=== PATIENT | female | born 1965 | race Caucasian/White ===

== ENCOUNTER 2017-11-10 16:45 | Emergency (ER) | payer MEDICARE, SELFPAY ==
[2017-11-10 16:46] VITALS: BP 139/91; PULSE 82; RESP 16; TEMP 37.1; O2SAT 96; BMI 38.4
--- NOTE | 2017-11-10 17:10 | ED.VISSUMM ---
- ER Visit Summary Date of Service: 11/10/17 Chief Complaint: Right thigh pain History of Present Illness: The patient is a 52 F continued chronic right thigh pain for the past 9 months. Out of her Percocet 2 days ago written by her PCP. Does not see pain management. Symptoms started 9 months ago initially PCP thought it was her lupus acting up. She was on Remicade. Symptoms are not improving. Currently off Remicade. Patient is referred to spine Dr. Bah had a CT of her back and hip was told was osteoarthritis. Continue pain daily is controlled with oxycodone. [address] Moyer orthopedist part of [facility], has concerns as a pinched nerve, has a pending MRI of her back on the of this month. No injuries. No loss of bowel or bladder control. Previously been on gabapentin with no relief. States both pain and numbness in the right anterior thigh. Denies any alcohol, tobacco, or illicit drug use. States it can get in with her PCP tomorrow to refill her medications. Pain worse with bending and standing. Physical Examination: General: Alert and oriented ?3, no acute distress HEENT: Normocephalic, atraumatic. Moist mucosa membranes Neck: supple, nontender. Cardiovascular: Regular rate and rhythm, no murmurs Respiratory: Normal breath sounds, symmetric, no distress Abdomen: Soft, nontender, nondistended Extremities: Right lower extremity: Negative logroll. Straight leg test did aggravate pain in the right thigh. No swelling. DP pulse was intact distally. Neuro: no focal neurological deficits. Test Results: [] Emergency Department Course and Treatment: Patient vitals stable, pulses intact distally. Ongoing symptoms for nine months, no injuries. The pending MRI on the of her lumbar spine. She has no cauda equina symptoms. Has appointment with her PCP tomorrow. She be given a dose of oxycodone here, will give 10 tabs to use until she sees her PCP tomorrow. Refills will be continued by her PCP. Treatment Plan: [] Disposition: Discharge Impression: Chronic right lower extremity pain This note was generated with [employer] software. It may contain incorrect words, spelling, and punctuation that were not noted in review of the chart prior to signing ED Disposition - Plan for ED Patient: Disposition: Home or Assisted Living Chief Complaint: Lower Extremity Injury Diagnosis: Chronic pain of right lower extremity Prescriptions: Oxycodone HCl/Acetaminophen [Percocet 5/325] 1 - 2 tablet PO Q6H PRN PRN 2 Days #10 tablet PRN Reason: Pain Referrals: Cirilo Arnold III, MD [Primary Care Provider] - 1 Day Additional Instructions: See your doctor for continued refills. MRI of the back is pending on the .
[2017-11-10] MEDS: oxyCODONE 5 MG Tablet 10 MG PO (17:25)
== END 2017-11-10 17:31 | disposition home or self-care (01) ==
PROVIDERS: Emergency Provider Emergency Medicine; Family Provider Family Medicine; PCP Family Medicine
DX: M79.651 Pain in right thigh (principal); G89.29 Other chronic pain; R20.0 Anesthesia of skin; R20.2 Paresthesia of skin; M32.9 Systemic lupus erythematosus, unspecified; M16.10 Unilateral primary osteoarthritis, unspecified hip; M19.90 Unspecified osteoarthritis, unspecified site; Z90.49 Acquired absence of other specified parts of digestive tract; Z90.710 Acquired absence of both cervix and uterus; Z79.899 Other long term (current) drug therapy
CPT/HCPCS: 99283

== ENCOUNTER 2018-04-27 23:37 | Emergency (ER) | payer MEDICARE, SELFPAY ==
[2018-04-27 23:38] VITALS: BP 113/94; PULSE 94; RESP 18; TEMP 36.8; O2SAT 98; BMI 42.6
--- NOTE | 2018-04-28 00:03 | ED.DCSUM_ITS ---
- ER Visit Summary Date of Service: 04/28/18 Chief Complaint: Pain all over History of Present Illness: The patient is a 52 F with history of lupus, rheumatoid arthritis and osteoarthritis who presents for 3 days of full body pain. Patient states that she has been on prednisone consistently for the last 4 months, and completed tapering off of it 5 days ago. For the last 3 days she has had worsening flare of her joint pain as well as diffuse myalgias. She states these are typical symptoms of a flare of her lupus and rheumatoid arthritis. She denies any fever, chest pain, shortness of breath, cough, abdominal pain, nausea or vomiting, diarrhea, or other complaints. She states there is nothing new about her symptoms that would make her think it is something other than a flare of her chronic autoimmune disorders. Patient takes Percocet at home but states she has been unable to control her pain. She also takes Ambien to help her sleep. Patient plans to follow-up with her primary care doctor tomorrow, but is in great discomfort tonight. Physical Examination: Vital signs: afebrile, hemodynamically stable, no hypoxia on room air General: well nourished, well developed, in no distress Skin: warm, dry, no rash, no pallor HEENT: normocephalic and atraumatic; PERRL, EOMI, moist mucous membranes Cardiovascular: regular rate and rhythm without murmurs, no peripheral edema, 2 + pulses all distal extremities Respiratory: No increased work of breathing, lungs are clear to auscultation bilaterally, no rales, rhonchi or wheezing Abdominal: Abdomen is soft, nontender with normoactive bowel sounds, no guarding or rebound, no masses MSK: Moves all extremities, no deformities, generalized weakness, diffuse tenderness of palpations to the joints Neuro: Awake and alert, oriented ?4. No facial droop, sensation and motor function intact and symmetric Test Results: [] Emergency Department Course and Treatment: Patient presents with an acute flare of diffuse myalgias and joint pain, typical for her lupus and rheumatoid arthritis flares, after being tapered off of prednisone 5 days ago. She was given a dose of 40 mg of prednisone in the emergency department and prescribed an additional prednisone taper until she can follow-up with her primary care doctor to discuss other treatment alternatives. Patient states she was tapered off of prednisone because it was interfering with her sleep, for which she requires Ambien now. However given her generalized discomfort with myalgias and arthralgias, patient will be restarted on prednisone until she can follow- up with her doctor. Patient has Percocet at home that she takes for pain, and she was given 1 subcutaneous dose of morphine in the emergency department to help her get her acute pain exacerbation under control. Patient states she will follow-up tomorrow to make an appointment to see her doctor as soon as possible. Patient was discharged home. Treatment Plan: [] Disposition: [] Impression: Acute exacerbation of lupus and rheumatoid arthritis This note was generated with [employer] dictation software. It may contain incorrect words, spelling, and punctuation that were not noted in review of the chart prior to signing ED Disposition - Plan for ED Patient: Disposition: Home or Assisted Living Chief Complaint: General Illness Instructions: ED Arthritis Rheumatoid Prescriptions: Prednisone 10 mg PO UD #33 tab Referrals: Cirilo Arnold III, MD [Primary Care Provider] - 1 Day Additional Instructions: Take the prednisone prescription as directed. Follow up with Dr. Arnold tomorrow to discuss more long-term management of your arthritis flare. If you have any worsening of your condition or any new concerning symptoms, please return immediately to the emergency department for another evaluation.
[2018-04-28] MEDS: predniSONE 20 MG Tablet 40 MG PO (00:12)
[2018-04-28] MEDS: Morphine 4 MG/ML Syringe 6 MG SC (00:12)
== END 2018-04-28 00:53 | disposition home or self-care (01) ==
PROVIDERS: Emergency Provider Emergency Medicine; Family Provider Family Medicine; PCP Family Medicine
DX: M32.9 Systemic lupus erythematosus, unspecified (principal); M06.9 Rheumatoid arthritis, unspecified; M19.90 Unspecified osteoarthritis, unspecified site; Z79.899 Other long term (current) drug therapy
CPT/HCPCS: 96372; 99282

== ENCOUNTER 2019-01-05 05:06 | Emergency (ER) | payer MEDICARE, SELFPAY ==
[2019-01-05 05:06] VITALS: BP 147/104; PULSE 88; RESP 18; TEMP 36.8; O2SAT 100; BMI 48.4
--- NOTE | 2019-01-05 05:21 | ED.VISSUMM ---
- ER Visit Summary Date of Service: 01/05/19 Chief Complaint: Arthritis pain History of Present Illness: The patient is a 53 F who presents with arthritis pain that became worse yesterday. Patient states the pain is in both hands, both shoulders, and both ankles. Patient states she was preparing for a baby shower yesterday and when the baby shower with over she noticed increasing pain from her arthritis. Patient denies any trauma or injury. Patient denies any paresthesias or weakness. Patient states this feels similar to prior flareups of her rheumatoid arthritis. Physical Examination: Vital signs are stable. Patient is afebrile. Patient is in no acute distress. Musculoskeletal exam reveals tenderness and edema over the MCP joints, bilateral wrist joints, and bilateral shoulder joints in the upper extremities. There is also tenderness over the bilateral ankle joints in the lower extremities. There is no erythema or warmth. There is no bony crepitance or step-off. There is no effusion noted. Range of motion was limited all motions of the MP joints, wrist joints, shoulder joint, and ankle joint secondary to pain. Sensation was intact to light touch in all dermatomes of the upper and lower extremities. Radial pulses are equal bilaterally. Pedal pulses are equal bilaterally. Emergency Department Course and Treatment: Patient was given an injection of morphine here. Patient was given a dose of prednisone here. Patient was given a prescription for prednisone. Patient was instructed to continue her home pain medications as previously prescribed. Patient was instructed to follow-up with her primary care physician in 5 to 7 days. Patient and her family understood and were agreeable with the plan. All questions were answered. Disposition: Discharge home Impression: Rheumatoid arthritis flare This note was generated with [employer] dictation software. It may contain incorrect words, spelling, and punctuation that were not noted in review of the chart prior to signing ED Disposition - Plan for ED Patient: Disposition: Home or Assisted Living Diagnosis: Rheumatoid arthritis flare Instructions: ED Arthritis Rheumatoid Prescriptions: predniSONE tablet 60 mg PO DAILY #15 tab Referrals: Cirilo Arnold III, MD [Primary Care Provider] - 5-7 Days
[2019-01-05] MEDS: Morphine 4 MG/ML Syringe IM (05:29)
[2019-01-05] MEDS: predniSONE 20 MG Tablet 60 MG PO (05:30)
== END 2019-01-05 05:52 | disposition home or self-care (01) ==
PROVIDERS: Emergency Provider Emergency Medicine; Family Provider Family Medicine; PCP Family Medicine
DX: M06.9 Rheumatoid arthritis, unspecified (principal); R11.0 Nausea; M32.9 Systemic lupus erythematosus, unspecified; K75.81 Nonalcoholic steatohepatitis (NASH); G62.9 Polyneuropathy, unspecified; M79.7 Fibromyalgia; Z79.899 Other long term (current) drug therapy
CPT/HCPCS: 96372; 99282

== ENCOUNTER → 2019-01-12 | Outpatient (CLI) | payer MEDICARE, SELFPAY ==
[2019-01-05 05:06] VITALS: BMI 48.4
--- NOTE | 2019-01-12 15:40 | RAD_ITS ---
STUDY: X-RAY - RIGHT KNEE REASON FOR EXAM: Female, 53 years old. Chronic pain. No known injury. TECHNIQUE: 2 view(s) of the knee. COMPARISON: None. FINDINGS: There is demineralization of the visualized distal femur. There is demineralization of the tibia and fibula. Normal proximal tibiofibular articulation. Normal medial femorotibial compartment. Normal lateral femorotibial compartment. Normal patellofemoral articulation. The soft tissue structures are unremarkable. RAD/Knee 1 or 2 Views IMPRESSION: Demineralization of the osseous structures. No acute abnormality is seen. Electronically Signed: Mc Connor, at 10:19 EDT , Service support ,
--- NOTE | 2019-01-12 15:40 | RAD_ITS ---
STUDY: X-RAY - LEFT KNEE REASON FOR EXAM: Female, 53 years old. Chronic pain. No known injury. TECHNIQUE: 2 view(s) of the knee. COMPARISON: None. FINDINGS: Normal visualized distal femur. Normal visualized proximal tibia and fibula. Normal proximal tibiofibular articulation. There is mild degenerative arthrosis of the medial femorotibial compartment. Normal lateral femorotibial compartment. There is mild degenerative arthrosis of the patellofemoral articulation. The soft tissue structures are unremarkable. RAD/Knee 1 or 2 Views IMPRESSION: Degenerative arthrosis. Electronically Signed: Mc Connor, at 10:20 EDT , Service support ,
--- NOTE | 2019-01-12 15:40 | RAD_ITS ---
STUDY: X-RAY - RIGHT FOOT CLINICAL: Female, 53 years old. Chronic pain. No known injury. TECHNIQUE: 3 view(s) of the foot. COMPARISON: None. FINDINGS: There is a plantar calcaneal spur. Normal visualized subtalar, talonavicular, calcaneocuboid, tarsal and tarsometatarsal articulations. There is demineralization of the metatarsi. There is degenerative arthrosis of the metatarsophalangeal joint of the hallux . Normal tibial and fibular sesamoid bones. Normal interphalangeal joint of the great toe. Normal phalanges of the great toe. Normal second through fifth metatarsophalangeal joints. Normal interphalangeal joints and phalanges of the lesser toes. The soft tissue structures are unremarkable. RAD/Foot min 3 Views IMPRESSION: Degenerative changes at the first metatarsophalangeal joint. No acute abnormality is seen. Electronically Signed: Mc Connor, at 10:18 EDT , Service support ,
--- NOTE | 2019-01-12 15:40 | RAD_ITS ---
STUDY: X-RAY - RIGHT SHOULDER REASON FOR EXAM: Female, 53 years old. Chronic pain. No known injury. TECHNIQUE: 4 view(s) of the shoulder. COMPARISON: None. FINDINGS: Normal glenohumeral articulation. Normal acromioclavicular joint. Normal acromion. Normal humeral head and visualized proximal humerus. The soft tissue structures are unremarkable. Normal visualized pulmonary apex. RAD/Shoulder min 2 Views IMPRESSION: Normal x-ray examination of the shoulder. Electronically Signed: Mc Connor, at 10:21 EDT , Service support ,
--- NOTE | 2019-01-12 15:45 | RAD_ITS ---
STUDY: X-RAY - LEFT FOOT CLINICAL: Female, 53 years old. Chronic pain. No known injury. TECHNIQUE: 3 view(s) of the foot. COMPARISON: None. FINDINGS: There is a plantar calcaneal spur. Normal visualized subtalar, talonavicular, calcaneocuboid, tarsal and tarsometatarsal articulations. Normal metatarsi. There is degenerative arthrosis of the metatarsophalangeal joint of the hallux . Findings suggestive of prior bunionectomy. Normal tibial and fibular sesamoid bones. Normal interphalangeal joint of the great toe. Normal phalanges of the great toe. Normal second through fifth metatarsophalangeal joints. Normal interphalangeal joints and phalanges of the lesser toes. The soft tissue structures are unremarkable. RAD/Foot min 3 Views IMPRESSION: Mild degenerative changes at the first metatarsal phalangeal joint. Electronically Signed: Mc Connor, at 10:20 EDT , Service support ,
--- NOTE | 2019-01-12 15:46 | RAD_ITS ---
STUDY: X-RAY - LEFT SHOULDER REASON FOR EXAM: Female, 53 years old. Chronic pain. No known injury. TECHNIQUE: 4 view(s) of the shoulder. COMPARISON: None. FINDINGS: Normal glenohumeral articulation. There is degenerative arthrosis of the acromioclavicular joint without inferior osseous spur formation. Normal acromion. Normal humeral head and visualized proximal humerus. The soft tissue structures are unremarkable. Normal visualized pulmonary apex. RAD/Shoulder min 2 Views IMPRESSION: Mild degree of the degenerative changes of the acromioclavicular joint. Electronically Signed: Mc Connor, at 10:21 EDT , Service support ,
== END | disposition home or self-care (01) ==
LOC: RAD 15:37
PROVIDERS: Family Provider Family Medicine; PCP Family Medicine; Referring Provider Internal Medicine Rheumatology; Visit Provider Internal Medicine Rheumatology
DX: M06.09 Rheumatoid arthritis without rheumatoid factor, multiple sites (principal)
CPT/HCPCS: 73030; 73560; 73564; 73630

== ENCOUNTER 2019-02-04 08:22 | Emergency (ER) | payer MEDICARE, SELFPAY ==
[2019-02-04 08:23] VITALS: BP 136/91; PULSE 87; RESP 17; TEMP 37; O2SAT 94; BMI 37.4
--- NOTE | 2019-02-04 08:47 | ED.DCSUM_ITS ---
History of Present Illness Chief Complaint: Other, Pain/Inj Detail of Chief Complaint: Generalized aches, poor quality of life and unable to care for self Informant: Patient, Family Onset: Month(s) Context: Gradual Onset Timing: Continuous Quality: Unable to care for self and generalized aches Location: Not applicable Current Severity: Mild Maximum Severity: Severe Worsened by: Attempt to get up out of chair and walk Relieved by: Nothing Associated Symptoms: Patient states she has a poor quality of life Narrative: Patient is a 53-year-old woman who has history of hypothyroidism, GERD, osteoarthritis, rheumatoid arthritis, lupus and fibromyalgia. She reports difficulty sleeping and is presently taking Ambien. She is also on antidepressants. She states Dr. Renteria recently decreased her dose of Percocet. She is seen at the [facility]. She denies fever, chills or night sweats. She denies change in weight. She denies ocular, visual or auditory symptoms. She denies cardiac or respiratory symptoms. She denies GI or symptoms. She reports generalized weakness. She has not noticed any swelling or redness of joints. She states for the past 2 weeks her sister has had to lay out her close and food. She states it is an effort to get up out of the chair. She reports is not been able to wash her hair for 2 to 4 weeks. She needs assistance. Prior similar symptoms: Yes Recent Illness/Hospitalization: No Past Medical History - Allergies and Home Meds Allergies/Adverse Reactions: Allergies hydrocodone bitartrate [From Vicodin] Adverse Reaction (Verified 02/04/19 08:23) Other sulfamethoxazole [From Bactrim] Adverse Reaction (Verified 02/04/19 08:23) Vomiting trimethoprim [From Bactrim] Adverse Reaction (Verified 02/04/19 08:23) Vomiting Primary Care Physician: Cirilo Arnold III, MD [Primary Care Provider] - Prior records reviewed: Yes Past Medical History: - - Documented in HPI Surgical History: cholecystectomy, hysterectomy Lives: With Family Smoking Status: Never smoker Alcohol: None Review of Systems General: Reports: Malaise. Denies: Chills, Fever, Subjective, Sweats, Weight loss, - Eyes: Denies: Visual changes - bilaterally, Blurred Vision - bilaterally ENT: Denies: Bilateral ear pain, Rhinorrhea, Sore throat Cardiovascular: Denies: Chest pain, Palpitations Respiratory: Denies: Dyspnea, Cough, Dyspnea on exertion Gastrointestinal: Denies: Abdominal pain, Nausea, Vomiting, Diarrhea, Melena, Hematochezia Genitourinary: Denies: Dysuria, Hematuria, Frequency Musculoskeletal: Reports: Myalgias, Back pain, Extremity Pain. Denies: Arthralgias, Swelling Skin: Denies: Rash, Wounds Neurological: Reports: Weakness Psych: Denies: Depression, Anxiety Endocrine: Denies: Polyuria, Polydipsia Hematologic: Denies: Easy bruising, Easy bleeding Physical Exam Vital Signs/Narrative: Vital Signs Temp Pulse Resp BP Pulse Ox 02/04/19 08:23 98.6 F 87 17 136/91 H 94 Inital Vital Signs reviewed: Yes General: Well nourished, Well developed, No Acute Distress Head: Normocephalic, Atraumatic Eyes: Perrl, EOMI. Negative for: Pale conjunctiva, Scleral icterus, - ENT: Moist mucous membranes, No rhinorrhea Neck: Supple, Nontender, No lymphadenopathy, No JVD Cardiovascular: Regular rate, Regular rhythm, No murmurs, Normal S1, Normal S2 Respiratory: No distress, CTA bilaterally, Chest nontender Abdomen: Soft, Nontender, Nondistended, Normal bowel sounds, No masses Back: Nontender, Normal Inspection Extremities: No edema, - - Patient has deformity of her fingers consistent with rheumatoid arthritis. There is no erythema or warmth of her joints.. Negative for: Nontender Skin: Normal color, No rash, No Trauma. Negative for: Cyanosis, Diaphoresis, Jaundice Neurological: Alert, Oriented x3, Cranial nerves II-XII grossly intact, Normal Strength, Normal Sensation. Negative for: Normal Gait - Patient states she is not able to ambulate Psychological: Depressed, - - She has slow psychomotor skills. Diagnostic/Tx/Re-eval Laboratory Results 02/04/19 02/04/19 09:00 09:00 WBC 3.5 L RBC 5.00 Hgb 13.1 Hct 41.4 MCV 82.8 MCH 26.2 L MCHC 31.6 L RDW 14.5 RDW Differential 43.7 Plt Count 306 MPV 9.9 Immature Gran % (Auto) 0.000 Neut % (Auto) 70.2 H Lymph % (Auto) 28.4 [place] % (Auto) 1.1 Eos % (Auto) 0.0 Baso % (Auto) 0.3 Absolute Neuts (auto) 2.4 Absolute Lymphs (auto) 0.99 Total Counted Not Reportable Sodium 143 Potassium 4.0 Chloride 112 H Carbon Dioxide 21.0 Anion Gap 10 BUN 11 Creatinine 0.76 Estim Creat Clear Calc 67.71 Est GFR (MDRD) Af Amer 102 Est GFR (MDRD) Non-Af 85 BUN/Creatinine Ratio 14.5 Glucose 151 H Calcium 9.0 Total Bilirubin 0.20 AST 22 ALT 33 Alkaline Phosphatase 188 H Total Protein 8.0 Albumin 3.4 Globulin 4.6 H Albumin/Globulin Ratio 0.7 L TSH 0.93 White count is slightly low at 3.5 thousand. Differential is unremarkable. Blood sugar is elevated 188. TSH is normal. Kathryn Reaves from case management is presently interviewing patient. - Medical Decision Making With patient's constellation of symptoms and history of hypothyroidism we will obtain TSH, CMP and CBC to determine if there is a metabolic or infectious cause for her symptoms. Clinically patient is depressed. She denies depression or sadness. Consult was placed to case management. Patient was asked what her expectations of me and this visit. She states she wants to feel better. At 0850 I was informed by patient's nurse she needed minimal assistance to get undressed. She did need assistance getting out of the wheelchair. She was able to walk to the examination bed and able to lift her legs up. When asked to raise her upper extremity for blood draw she states she was unable. This would support my opinion especially if work-up is negative that this represents depression. This also may be secondary to hypothyroidism and reason for TSH. I was informed by patient's nurse that she requested pain medicine. Tylenol was ordered. She declined Tylenol. I was informed that she left. According to patient's home-going meds she is not due for Percocet until noon. Based on recent studies there is no significant benefit treating chronic pain with Tylenol or NSAID versus opiate analgesia. Since patient has multiple medical problems and physiologically is older than 53 reluctant to prescribe NSAID. License nephrology social worker Kathryn asked her informed me that patient score was positive for depression and is a candidate for palliative care. She is open to palliative care. She also expressed that she was concerned that Dr. Cirilo Arnold was weaning her off Percocet. At 1105 patient was seen ambulating from restroom. She had minimal assistance i.e. mother was holding left hand and forearm. It was observed and there is no foot drop or evidence of weakness. ED Disposition - Plan for ED Patient: Disposition: Home or Assisted Living Diagnosis: Depression determined by examination, History of hypothyroidism, Diabetes mellitus due to underlying condition with hyperglycemia, Hypertension Instructions: ED Chronic Pain Management, ED Depression, Depression Affects Your Mind and Body Referrals: Cirilo Arnold III, MD [Primary Care Provider] - Additional Instructions: Kathryn Reaves has placed an order for palliative care evaluation and assistance.
[2019-02-04 09:15] LABS: Absolute Lymphocyte Count 0.99 X10^3/ul (0.83-4.51); Absolute Neutrophil Count 2.4 X10^3/uL (2.0-7.7); Basophil# 0.01 X10^3/uL; Basophil% 0.3 % (0-1); Hematocrit 41.4 % (37-47); Hemoglobin 13.1 g/dl (12.0-15.0); Lymphocyte # 0.99 X10^3/ul (4.0); Lymphocyte % 28.4 % (19-41); Mean Corp Hgb Conc 31.6 g/gl (32-36); Mean Corpuscular Hgb 26.2 pg (27.0-32.0); Mean Corpuscular Volume 82.8 fL (81-99); Mean Platelet Vol. 9.9 fl (6.2-12.0); Monocyte# 0.04 X10^3/uL; Monocyte% 1.1 % (0-10); Neutrophil # 2.44 X10^3/uL (2.7-7.7); Neutrophil % 70.2 % (47-70); Platelet Count 306 K/mm3 (150-450); RBC Distribution Width CV 14.5 % (11.6-14.6); RBC Distribution Width SD 43.7 fl (35.1-43.9); White Blood Count 3.5 K/mm3 (4.4-11.0)
[2019-02-04 09:16] LABS: POSITIVE COUNT NO; POSITIVE DIFFERENTIAL NO; POSITIVE MORPHOLOGY NO
[2019-02-04 09:32] LABS: ALB/GLOB Ratio 0.7 RATIO (0.9-2.4); AST(SGOT) 22 U/L (15-37); Alanine Aminotransfer ALT/SGPT 33 U/L (13-56); Albumin, Serum 3.4 g/dL (3.2-5.0); Alkaline Phosphatase 188 U/L (45-117); Anion Gap 10 (5-15); BUN 11 mg/dL (7-18); BUN/Creat Ratio 14.5 RATIO (10-20); Chloride 112 mmol/L (98-107); Creatinine, Serum 0.76 mg/dL (0.55-1.02); EST Glomerular Filtration Rate 85 mL/min (>60); Est Glom Filt Rate - Afr Amer 102 mL/min (>60); Estimated Creatinine Clearance 67.71 ml/min; Globulin 4.6 g/dL (2.2-4.2); Glucose 151 mg/dL (74-106); Sodium Level 143 mmol/L (136-145); Thyroid Stim Hormone (TSH) 0.93 uIU/mL (0.358-3.74)
[2019-02-04] MEDS: Acetaminophen 325 MG Tablet 650 MG PO (10:21)
[2019-02-04 10:58] VITALS: BP 154/99; PULSE 70; O2SAT 100
--- NOTE | 2019-02-04 11:05 | ED.RN ---
WHILE IN ER, PT WAS ABLE TO MOVE SOME EXTREMITIES AT TIMES, THEN WOULD NOT BE ABLE TO MOVE THEM. SHE WAS ABLE TO USE HER ARMS TO LIFT HERSELF ON THE BED AND SCOOT HERSELF BACK IN BED, BUT STATES SHE WAS NOT ABLE TO LIFT HER ARM TO PUT A BLOOD PRESSURE CUFF ON. PT ASKED FOR PAIN MEDS, TYLENOL ORDERED. WHEN PT INFORMED OF MEDS, PT LAUGHED AND STATED TYLENOL, REALLY. AND LAUGHED AGAIN. PT WAS ABLE TO AMBULATE SELF TO BATHROOM AND BACK TO BED WITHOUT ASSISTANCE FROM STAFF.
--- NOTE | 2019-02-04 14:56 | CASEMGMT ---
Social Work Note Date and Time of Referral: 02/04/2019 0841 Referred By: Dr. Velasquez Date and Time of Intervention: 02/04/2019 0930 - 1100 Reason for Referral: multiple medical problems; inability to care for herself. Informant: medical record and patient herself; patient's mother Noemi Cate present for parts of conversation. Personal Status Living Arrangements: [facility] with sister. Reports there are a few steps into the home. Education: College educated with degree reported to be in social work. Reports ability to read, write, and understand what is read. Employment: on disability related to multiple medical problems. 1300 plus a month. 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 Family Dynamics/Relationships: Reports sister Callie and mother Noemi are main support system. Both try to help MOB when MOB needs more care at home. Support System: mother, sister. Medical History and Functioning: Medical History and Reason for admission: to the ED with complaints of generalized aches, poor quality of life, and not caring for self. ADLs prior to admission: Patient reports for the last 5 years a significant decrease in quality of life and independent functioning such as dressing by herself. Over the last two weeks patient reports acute change in having difficultly in getting out of bed, getting to the toilet, and bathing. DME used: [employer] bed, lift chair, forward wheeled walker Programs/Agencies Involved: Transportation: family assists Otherr: Dr. Arnold for primary care and Dr. Grey at the [facility] Substance Abuse History and Current Pattern of Use: Denies abuse of any substances. Has been prescribed Percocet for may years for chronic pain issue and PCP is in the process of titrating this down with goal to be finished in a month's time. Mental Health History and Current Cognitive Status Diagnoses: Patient denies past or present history of depression or anxiety. Patient admits however that emotional health has likely been impacted by chronic health issues. Current Stressors: Loss of independence. Patient admits that when reflects on how life used to be with ability to work, function independently, and travel it is hard to know that has lost this part of her life. SI or HI: Patient admits to thoughts of suicide 5 years ago when chronic health issues took a turn for the worse and patient lost independent functioning. Patient denies that ever formulated a plan or had intent to take life, but contemplate the idea of suicide. Patient states that suicide goes against patient's beliefs and core values, that wants to go to heaven and does not want to take a chance that she would not go to [facility] because of taking her own life. Treatment History: None reported or identified. Current Cognitive/Mental Status: Alert and oriented to person, place, time and situation. Good recall of past events and clear and logical thought process when discussing concerns. Patient tearful when talking about loss of independence, frustration with health issues/having chronic pain/feeling like no one is listening to patient about what she needs. Patient stating to be in pain, laying still in bed for the most part. Observed patient to be able to shift around in bed as needed to adjust self. PHq9 Depression Screen (how feeling over the last two weeks): Total score: 3 (mild depression symptoms present) 1 . Little interest or pleasure in doing things. -more than half days (score of 2) 2. Feeling down, depressed or hopeless. - several days (score of 1) 3. Trouble falling asleep, staying asleep, or sleeping too much. - not at all (score of 0) 4. Feeling tired or having little energy. - not at all (score of 0) 5. Poor appetite or overeating.- not at all (score of 0) 6. Feeling bad about yourself - or that you?re a failure or have let yourself or your family down.- not at all (score of 0) 7. Trouble concentrating on things, such as reading the newspaper or watching television. - not at all (score of 0) 8. Moving or speaking so slowly that other people could have noticed. Or, the opposite - being so fidgety or restless that you have been moving around a lot more than usual. - not at all (score of 0) 9. Thoughts that you would be better off or of hurting yourself in some way. - not at all (score of 0) Patient?s Identified Concerns: change in reported ability to care for self, frustrated with current pain levels and concern that PCP is decreasing pain meds that patient has been on for years in just a month's time. Patient wants help with cooking, bathing, and dressing. Interventions: Supportive listening and encouragement given. Talked with patient how medical issues can impact one's mental health and encouraged patient to consider options this technical proposal writer provided (list of counselors and [facility] programs). Educated to Medicare assistance programs through [facility], provided income guidelines and medicaid application to look into medicaid to help with Medicare copays. Educated to meals on wheels, provided information, and per patient's stated consent initiated referral. MOW to call patient to discuss cost. Educated to [facility] and disable resource center as an [place] to give patient more ideas on services, half-way needs, and care options. Patient declines referral but took information to look over. Educated to local Palliative medicine program. Palliative Medicine screening tool completed and based on screening tool may benefit from palliative medicine. Patient states consent for a referral. Spoke with physician in the ED who is in agreement with referral. Called [facility], spoke with [place], verbal referral given and then faxed needed referral information for continuity of care to confirmed fax number. Briefly discussed private pay for home health aide and then skilled HHC. Patient not interested in private paying right now and declines referral for skilled HHC. Plan: Home. Mother to transport. Referrals made for MOWs and palliative medicine. Information on mental health and other community resources provided. -RK Espinosa, TECHNOLOGY ADOPTION MANAGER
== END 2019-02-04 11:25 | disposition home or self-care (01) ==
PROVIDERS: Emergency Provider Emergency Medicine; Family Provider Family Medicine; PCP Family Medicine
DX: F32.9 Major depressive disorder, single episode, unspecified (principal); E03.9 Hypothyroidism, unspecified; E11.65 Type 2 diabetes mellitus with hyperglycemia; I10 Essential (primary) hypertension; K21.9 Gastro-esophageal reflux disease without esophagitis; M19.90 Unspecified osteoarthritis, unspecified site; M06.9 Rheumatoid arthritis, unspecified; M79.7 Fibromyalgia; Z79.899 Other long term (current) drug therapy
CPT/HCPCS: 80053; 84443; 85025; 99283; A4216

== ENCOUNTER 2019-10-30 15:05 | Emergency (ER) | payer MEDICARE, SELFPAY ==
[2019-10-30 15:07] VITALS: BP 153/108; PULSE 92; RESP 18; TEMP 36.8; O2SAT 99; BMI 37.8
--- NOTE | 2019-10-30 15:55 | ED.DCSUM_ITS ---
- ER Visit Summary Date of Service: 10/30/19 Chief Complaint: Vomiting History of Present Illness: The patient is a [address] Cirilo Arnold and Dr. Mansfield. She reports that she has been vomiting for the past 10 days. States this does not happen every day. However, she vomited 10 times yesterday and twice today. No blood or emesis. No abdominal pain. No diarrhea. Her last bowel movements yesterday. Typically she goes every other day. She denies any blood in her stools or black tarry stools. No dysuria or frequency. Patient reports that she has an appointment to see Dr. Loya for endoscopy next week. Last endoscopy was years ago. States that she is had similar episodes off and on for the past 3 months but that typically it usually lasts for 2 days. Patient reports that she saw Dr. Cirilo Arnold iii, but she is on methadone and oxycodone and he did not think that continuing her Phenergan or Zofran was a good idea due to these medications. Physical Examination: Vitals: Stable. Afebrile. General: Well-nourished and well-developed. Head: Normocephalic atraumatic. Neck: Supple, no lymphadenopathy. No JVD. Nontender. Cardiovascular: Regular rate and rhythm. No murmurs. Respiratory: No respiratory distress. Clear to auscultation bilaterally. Abdominal: Soft, nontender, nondistended, normal bowel sounds. No guarding, rebound, or peritoneal signs. Back: Nontender. Extremities: Nontender, no edema. Skin: Normal color, no rash. Neurologic: Alert and oriented ?3. Cranial nerves II through XII are intact. Normal strength and sensation. Psych: Normal affect. Test Results: CBC shows an H&H of 11.0 and 36.9. Chem-7 shows a potassium 3.4, chloride 112, BUN of 4. Emergency Department Course and Treatment: I reviewed the interactions between methadone, Zofran, and Phenergan. It appears that this combination does increase the risk of QT prolongation. This does not occur with Reglan. She was given a dose of Reglan here and had an akathetic reaction. She was given Benadryl IV and is resting comfortably now. She has not vomited while here. She was given a liter normal saline. Treatment Plan: Patient will be discharged with symptomatic care. Cannot give Reglan because of the reaction she had here. Cannot give Zofran or Phenergan due to QT prolongation. Instructed to follow-up with Dr. Loya and Dr. Ciirlo Arnold iii as previously scheduled. Return to the emergency department for any worsening symptoms. Disposition: To home in improved and stable condition. Impression: 1. Vomiting. This note was generated with [employer] dictation software. It may contain incorrect words, spelling, and punctuation that were not noted in review of the chart prior to signing ED Disposition - Plan for ED Patient: Instructions: VOMITING (6y-Adult) Referrals: Cirilo Arnold III, MD [Primary Care Provider] - 1-2 Days if not improving
[2019-10-30 16:12] LABS: Absolute Lymphocyte Count 1.35 X10^3/uL (0.83-4.51); Absolute Neutrophil Count 2.6 X10^3/uL (2.0-7.7); Basophil# 0.04 X10^3/uL; Basophil% 0.9 % (0-1); Eosinophil# 0.16 X10^3/uL; Eosinophils% 3.5 % (0-5); Hematocrit 36.9 % (37-47); Lymphocyte # 1.35 X10^3/ul (4.0); Lymphocyte % 29.5 % (19-41); Mean Corp Hgb Conc 29.8 g/dL (32-36); Mean Corpuscular Hgb 25.5 pg (27.0-32.0); Mean Corpuscular Volume 85.6 fL (81-99); Mean Platelet Vol. 10.5 fl (6.2-12.0); Monocyte# 0.42 X10^3/uL; Monocyte% 9.2 % (0-10); NRBC Flagged by Analyzer 0 % (0-5); Neutrophil # 2.59 X10^3/uL (2.7-7.7); Neutrophil % 56.7 % (47-70); Platelet Count 277 K/mm3 (150-450); RBC Distribution Width CV 16.5 % (11.6-14.6); RBC Distribution Width SD 51.8 fl (35.1-43.9); Red Blood Count 4.31 M/mm3 (4.2-5.4); White Blood Count 4.6 K/mm3 (4.4-11.0)
[2019-10-30] MEDS: Metoclopramide 10 MG/2 ML Vial IV (16:17)
[2019-10-30] MEDS: 0.9% Normal Saline 1,000 ML 1000 ML IV (16:17)
[2019-10-30 16:19] LABS: Anion Gap 4 (5-15); BUN 4 mg/dL (7-18); BUN/Creat Ratio 5.5 RATIO (10-20); Calcium,Total 8.6 mg/dL (8.5-10.1); Chloride 112 mmol/L (98-107); Creatinine, Serum 0.72 mg/dL (0.55-1.02); EST Glomerular Filtration Rate 89 mL/min (>60); Est Glom Filt Rate - Afr Amer 108 mL/min (>60); Estimated Creatinine Clearance 70.65 ml/min; Glucose 99 mg/dL (74-106); Potassium 3.4 mmol/L (3.5-5.1); Sodium Level 145 mmol/L (136-145)
[2019-10-30] MEDS: DiphenhydrAMINE 50 MG/ML Syringe IV (16:35)
[2019-10-30 16:54] VITALS: BP 143/81; PULSE 72; RESP 17; O2SAT 95
== END 2019-10-30 16:58 | disposition home or self-care (01) ==
LOC: ED 15:45
PROVIDERS: Emergency Provider Emergency Medicine; PCP Family Medicine
DX: R11.2 Nausea with vomiting, unspecified (principal); R68.83 Chills (without fever); M54.9 Dorsalgia, unspecified; G89.29 Other chronic pain; R51 Headache; M06.9 Rheumatoid arthritis, unspecified; M79.7 Fibromyalgia; M32.9 Systemic lupus erythematosus, unspecified; Z79.899 Other long term (current) drug therapy
CPT/HCPCS: 80048; 85025; 96361; 96374; 96375; 99283

== ENCOUNTER 2019-11-06 11:23 | Day surgery (SDC) | payer MEDICARE, SELFPAY ==
--- NOTE | 2019-11-06 09:23 | HP.PCM_ITS ---
History and Physical Date of Admission: 11/06/19 Hodan Castellanos 1965 REFERRING PHYSICIAN: MD Eliecer CHIEF COMPLAINT: Consult (Consult EGD- n/v x 4 months) HPI: The patient is a 54 year old female presents with nausea with emesis with weight loss. She has noted weight loss of about 45#. She notes minimal left upper quadrant abdominal pain, just recently. Denies constipation or diarrhea. Denies blood in emesis. This has been going on for about 4 months. She is s/p jaylyn en y bariatric surgery in the early . Denies fevers. PAST MEDICAL HISTORY Chronic insomnia 09/09/2017 ? Depression 11/17/2012 ? Elevated liver function tests 05/22/2012 ? Fibromyalgia ? Hyperlipidemia LDL goal < 100 06/26/2010 ? Hypoglycemia after GI (gastrointestinal) surgery 04/30/2014 ? Iron deficiency anemia, unspecified ? 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 Irritable bowel syndrome ? Migraine, unspecified, without mention of intractable migraine without mention of status migrainosus ? Morbid obesity due to excess calories (HCC) 12/15/2015 ? Polyneuropathy in other diseases classified elsewhere (HCC) ? Rheumatoid arthritis(714.0) ? Systemic lupus erythematosus arthritis (HCC) 03/18/2014 ? Unspecified asthma(493.90) ? Unspecified hypothyroidism ? Vitamin B 12 deficiency 11/22/2017 ? Vitamin D deficiency 09/16/2012 PAST SURGICAL HISTORY ? COLONOSCOPY 1999 ? EGD W/O OR W/BRUSH/WASH 1994 EGD ? HERNIA REPAIR HX ? intestinal bypass 1991 roue-in-Y gastric bypass ? KNEE SCOPE,DIAGNOSTIC Arthroscopy, knee ? LAP, SUPRACERVIAL HYSTERECTOMY W/ TUBE&OV, <250G 08/09 endometriosis and ovarian cysts (EDIT 03/2015 abdominal incision) ? PULMONARY FUNCTION TEST ? REMOVAL GALLBLADDER 1992 Cholecystectomy Current Outpatient Medications ? promethazine (PHENERGAN) 25 mg tablet Go-Pack Take 1 tablet by mouth every 6 hours as needed for Nausea/Vomiting for up to 80 doses. ? tiZANidine (ZANAFLEX) 4 mg tablet Take 1 tablet by mouth every 8 hours as needed (muscle spasms). ? levothyroxine (SYNTHROID) 88 mcg tablet Take 1 tablet by mouth once daily. Take on empty stomach. ? cholecalciferol, vitamin D3, (VITAMIN D3) 4,000 unit cap Take 1 capsule by mouth once daily. ? oxyCODONE IR (ROXICODONE) 10 mg tab Take 10 mg by mouth four times daily. ? methadone (DOLOPHINE) 10 mg tablet Take 10 mg by mouth q 12 HR. ? busPIRone (BUSPAR) 10 mg tablet Take 1 tablet by mouth three times daily. ? hydrOXYzine HCl (ATARAX) 25 mg tablet Take 1 tablet by mouth every 8 hours as needed for Anxiety. ? DULoxetine (CYMBALTA) 60 mg capsule Take 1 capsule by mouth once daily. ? dicyclomine (BENTYL) 10 mg capsule Take 1 capsule by mouth before meals and at bedtime. as needed for abdominal cramping ? topiramate (TOPAMAX) 100 mg tablet Take 2 tablets by mouth twice daily. ? zolpidem (AMBIEN) 10 mg tab Take 1 tablet by mouth at bedtime as needed for up to 30 days. ? oxyCODONE-acetaminophen (PERCOCET) 5-325 mg tablet Take 2 tablets by mouth every 8 hours as needed for Pain (max 6 doses/day) for up to 30 days. ? mometasone (ELOCON) 0.1 % cream Apply 1 application to affected area once daily. ? albuterol HFA (PROVENTIL HFA, VENTOLIN HFA) 90 mcg/actuation inhaler Inhale 2 Puffs as instructed every 4 hours as needed for Wheezing/Shortness of Breath. ? folic acid 1 mg tablet Take 1 tablet by mouth once daily. ? Zinc 50 mg tab Take 1 tablet by mouth once each week. ? oxyCODONE-acetaminophen (PERCOCET) 5-325 mg tablet Take 1 tablet by mouth every 4 hours as needed for Pain for up to 7 days. max 6 doses/day Earliest Fill Date: 01/27/19 ? benzonatate (TESSALON PERLES) 100 mg capsule Take 1 capsule by mouth three times daily as needed for Cough. ? metoclopramide HCl (REGLAN) 10 mg tablet Take 1 tablet by mouth twice daily as needed (headache). 30min before meals. ? predniSONE (DELTASONE) 10 mg tablet Take 1 tablet by mouth twice daily. ? lidocaine (LIDODERM) 5 % Apply 1 Patch as directed every 24 hours. Remove old patch prior to placing new patch. Location: right thigh ? hydrocortisone (ANUSOL-HC) 25 mg suppository 1 Suppository by RECTAL route twice daily as needed (hemorrhoids/rectal pain). ? polyethylene glycol 3350 (MIRALAX) 17 gram/dose powder 17 g/ 8 oz liquid by mouth daily ? Simethicone (GAS RELIEF) 125 mg cap Take 1 capsule by mouth three times daily as needed (gas/bloating). ? therapeutic multivitamin (THERA VITAMIN) tablet Take 1 tablet by mouth once daily. ? hydrocortisone 0.5 % cream Apply 1 application to affected area twice daily. ? rizatriptan 5 mg tablet Take 1 tablet by mouth as needed for Migraine Headache (see administration instructions) (every 2 hrs as needed for migraine, maximum 15mg /day and 9 tablets/mo). May repeat in 2 hours if needed ALLERGIES: Bactrim [Sulfamethoxazole-Trimethoprim]; Benzamycin [Erythromycin- Benzoyl Peroxide]; Environmental [Other]; Guiafen-Pse [Pseudoephedrine- Guaifenesin]; Humira [Adalimumab]; Lodine [Etodolac]; Methotrexate; Neurontin [Gabapentin]; Nsaids (Non-Steroidal Anti-Inflammatory Drug); Ultram [Tramadol Hcl]; Vicodin [Hydrocodone-Acetaminophen]; Voltaren [Diclofenac Sodium]; Zostrix-Hp [Capsaicin] PERSONAL HISTORY: Social History Tobacco Use ? Smoking status: Never Smoker ? Smokeless tobacco: Never Used Substance Use Topics ? Alcohol use: No ? Drug use: No FAMILY HISTORY ? Asthma Mother ? COPD Mother ? Arthritis Mother rheumatoid arthritis ? Emphysema Maternal Grandmother ? Heart Maternal Grandmother ? Hypertension Maternal Grandfather ? Diabetes Maternal Grandfather ? Arthritis Maternal Uncle rheumatoid arthritis REVIEW OF SYSTEMS: General - denies fevers, has had weight loss -see HPI Cardiovascular - denies chest pain, denies history of PR Pulmonary - has occasional shortness of breath, denies coughing up blood Gastrointestinal - see HPI Neurological - has headaches Genitourinary - denies blood in urine Hematological - denies spontaneous/prolonged bleeding Skin - denies nonhealing skin wounds Musculoskeletal - has back and joint pain Endocrine - denies diabetes, has hypothyroidism Psychological ? denies hallucinations PHYSICAL EXAMINATION: General: The patient is 54 year old female, well nourished, well hydrated in no acute distress. The patient is oriented to time, place, and person. VITALS: BP 127/90 Pulse 79 Resp 18 Wt 98.4 kg (217 lb) BMI 42.38 kg/m? Head ? Normocephalic. EOM intact with sclera clear and no icterus noted. Mouth with mucus membranes moist. Neck - supple with no jugular venous distention noted. Trachea is midline. Lungs ? clear to auscultation. Normal breath sounds. No rales/rhonchi/wheezing noted. No labored breathing noted, such as retractions. No cough heard. Heart ? normal S1 and S2 auscultated. No rubs/clicks/murmurs noted. Regular rate. Abdomen ? soft and benign. Normal bowel sounds. No abdominal bruits noted. Difficult to determine if any masses or organomegaly due to body habitus. Extremities ? no calf tenderness noted. No pitting edema noted. Skin ? normal skin integrity. Neurological ? gait normal, no focal deficits noted. Psych ? calm and appropriate IMPRESSION: nausea/emesis, s/p bariatric surgery PLAN: I have discussed the above with the patient, here with her mother. I have offered EGD, possible biopsies I have explained the procedure to the patient. I have counseled the patient as to the risks of the procedure, including but not limited to: infection, bleeding, perforation of the GI tract, injury to any intraabdominal organs such as the liver/spleen, inability to complete the procedure, complications of anesthesia, etc. ? the patient understands. The patient wishes to proceed. I have answered all questions to the patient?s satisfaction and the patient has no further questions. . Diagnoses: (R11.2) Intractable vomiting with nausea, unspecified vomiting type (primary encounter diagnosis) (Z98.84) Status post bariatric surgery (E66.01) Morbid obesity (HCC) Return to Clinic: The patient is instructed to follow-up with me after the procedure
[2019-11-06 11:52] VITALS: BP 147/91; PULSE 87; RESP 16; TEMP 36.6; O2SAT 98; BMI 36.8
[2019-11-06] MEDS: Lactated Ringers 1,000 ML 75 ML IV (12:04)
--- NOTE | 2019-11-06 13:07 | OP.CCLET_ITS ---
11/06/2019 Cirilo Arnold [address] [place] [address] Re : Upper GI endoscopy procedure for Hodan Castellanos Dear Dr. Arnold This procedure was performed on Wednesday, November 06, 2019. My impressions and recommendations are as follows: Impressions : - No specimens collected. Recommendations : - Discharge patient to home (ambulatory). - Resume previous diet. - Continue present medications. - Return to primary care physician PRN. My findings are described in the full procedure note, which is enclosed. If I can be of further assistance, please feel free to contact me at Doctor phone number(s): , Work: . Sincerely, MD Erica Jorgensen MD 11/06/2019 1:06:54 PM This report has been signed electronically.
--- NOTE | 2019-11-06 13:07 | OP.EGD_ITS ---
Patient Name: Hodan Castellanos Procedure Date: 11/06/2019 12:13 PM Date of : 1965 Age: 54 Procedure: Upper GI endoscopy Indications: Persistent vomiting of unknown cause Providers: Erica Loya MD Medicines: See the Anesthesia note for documentation of the administered medications Patient Profile: Refer to note in patient chart for documentation of history and physical. Complications: No immediate complications. Procedure: Pre-Anesthesia Assessment: - see anesthesia note After obtaining informed consent, the endoscope was passed under direct vision. Throughout the procedure, the patient's blood pressure, pulse, and oxygen saturations were monitored continuously. The gastroscope was introduced through the mouth, and advanced to the operative stoma of duodenum. The upper GI endoscopy was accomplished without difficulty. The patient tolerated the procedure well. Scope In: 12:55:03 PM Scope Out: 12:57:47 PM Total Procedure Duration Time 0 hours 2 minutes 44 seconds Findings: Patient is s/p bariatric surgery that is creation of small gastric pouch with Jason-en-Y jejunal limb. The stomach pouch was intact - no evidence of ulcers/masses/polyps noted. The anastomosis was well healed - it was widely patent. No evidence of strictures/ulcers/etc. noted. There was a blind limb - that was normal - no lesions noted. The efferent limb was normal - no masses or lesions were noted at least 20 cm from the anastomosis. The GE junction was normal. The esophagus was normal. Impression: - No specimens collected. Recommendation: - Discharge patient to home (ambulatory). - Resume previous diet. - Continue present medications. - Return to primary care physician PRN. Procedure Code(s): --- Professional --- 75334, Esophagogastroduodenoscopy, flexible, transoral; diagnostic, including collection of specimen(s) by brushing or washing, when performed (separate procedure) Diagnosis Code(s): --- Professional --- R11.10, Vomiting, unspecified CPT copyright 2017 [employer]. All rights reserved. The codes documented in this report are preliminary and upon university tutor review may be revised to meet current compliance requirements. MD Erica Jorgensen MD 11/06/2019 1:06:54 PM This report has been signed electronically. Number of Addenda: 0 Note Initiated On: 11/06/2019 12:13 PM
[2019-11-06 13:10] VITALS: BP 133/104; BP 147/91; PULSE 102; RESP 16; TEMP 36.6; O2SAT 100
[2019-11-06 13:15] VITALS: BP 138/98; BP 147/91; PULSE 99; RESP 16; O2SAT 100
[2019-11-06 13:20] VITALS: BP 145/96; BP 147/91; PULSE 96; RESP 16; O2SAT 100
[2019-11-06 13:25] VITALS: BP 146/99; BP 147/91; PULSE 90; RESP 16; TEMP 36.9; O2SAT 100
[2019-11-06 13:50] VITALS: BP 147/91
== END 2019-11-06 13:55 | disposition home or self-care (01) ==
LOC: EN 11:24 → AC 11:27
PROVIDERS: PCP Family Medicine; Referring Provider Family Medicine; Visit Provider Surgery
PROC: 0DJ08ZZ Inspection of Upper Intestinal Tract, Via Natural or Artificial Opening Endoscopic (ICD-10-PCS; CPT 43235; principal; 2019-11-06 12:55)
DX: R11.2 Nausea with vomiting, unspecified (principal); Z98.84 Bariatric surgery status; E66.01 Morbid (severe) obesity due to excess calories; Z68.41 Body mass index [BMI] 40.0-44.9, adult; K75.81 Nonalcoholic steatohepatitis (NASH); M06.9 Rheumatoid arthritis, unspecified; F32.9 Major depressive disorder, single episode, unspecified; M79.7 Fibromyalgia; E78.5 Hyperlipidemia, unspecified; K58.9 Irritable bowel syndrome, unspecified; G62.9 Polyneuropathy, unspecified; M32.9 Systemic lupus erythematosus, unspecified; E03.9 Hypothyroidism, unspecified; E55.9 Vitamin D deficiency, unspecified; J45.909 Unspecified asthma, uncomplicated; G43.909 Migraine, unspecified, not intractable, without status migrainosus; Z86.2 Personal history of diseases of the blood and blood-forming organs and certain disorders involving the immune mechanism; Z78.0 Asymptomatic menopausal state; Z90.49 Acquired absence of other specified parts of digestive tract; Z79.899 Other long term (current) drug therapy
CPT/HCPCS: 43235; J7120; J2405

== ENCOUNTER 2019-12-18 05:03 | Emergency (ER) | payer MEDICARE, SELFPAY ==
[2019-12-18 05:03] VITALS: BP 145/80; PULSE 76; RESP 16; TEMP 36.7; O2SAT 99; BMI 35.9
--- NOTE | 2019-12-18 05:32 | ED.VISSUMM ---
- ER Visit Summary Date of Service: 12/18/19 Chief Complaint: Nausea, vomiting, possible withdrawal History of Present Illness: The patient is a 54 F who presents with nausea and vomiting for the past 4 days. Patient states she has been having trouble keeping things down. Patient states that she was prescribed methadone and OxyIR from a palliative care physician but this was stopped 1 week ago. Patient states she feels like her heart is beating fast. Patient states she feels like she is shaking all over. Patient states nothing makes it better or worse. Patient states she called her primary care physician who called in a prescription for clonidine for her. Patient states that this gives her a headache and she quit taking it. Patient denies any fevers or chills. Physical Examination: Vital signs are stable except for mildly elevated blood pressure of 145/80. Patient is afebrile. Patient is in no acute distress. Oral mucosa is pink and moist. Neck is supple. Trachea is midline. There is no JVD. Heart was regular rate and rhythm. Lungs are clear and equal bilaterally. Abdomen is soft. Bowel sounds are normal. There is no tenderness. There is no rebound. Cranial nerves II through XII are intact. There are no focal motor or sensory deficits noted. Extremities are intact. There is no calf tenderness or edema. Test Results: CBC was within normal limits. Comprehensive metabolic profile showed a slightly elevated sodium of 146 and a slightly elevated chloride of 114. Alk phos was slightly elevated at 178, ALT was 112, and AST was 144. Lipase was normal. Urinalysis showed leukocyte esterase of 500 with positive nitrates and 5-10 white blood cells and 2+ bacteria. Emergency Department Course and Treatment: Patient was given IV fluids and Zofran here. Patient was given a dose of Keflex here. Patient was given a prescription for Keflex and Zofran. Patient was instructed to follow-up with her primary care physician in 3-5 days for further evaluation of her chronic pain. Patient understood and was agreeable with the plan. All questions were answered. Disposition: Discharge home Impression: 1. Urinary tract infection This note was generated with [employer] software. It may contain incorrect words, spelling, and punctuation that were not noted in review of the chart prior to signing ED Disposition - Plan for ED Patient: Disposition: Home or Assisted Living Diagnosis: Urinary tract infection Instructions: ED Nausea Vomiting Adult, ED CYSTITIS Female Adult Prescriptions: Cephalexin [Keflex] 500 mg PO Q6 #20 cap Prescription Printed Ondansetron [Zofran Odt] 4 mg PO Q8H PRN PRN #10 tab PRN Reason: Nausea Prescription Printed Referrals: Cirilo Arnold III, MD [Primary Care Provider] - 3-5 Days
[2019-12-18 05:38] LABS: Absolute Lymphocyte Count 2.85 X10^3/uL (0.83-4.51); Basophil# 0.06 X10^3/uL; Basophil% 0.9 % (0-1); Eosinophil# 0.16 X10^3/uL; Eosinophils% 2.4 % (0-5); Hematocrit 40.8 % (37-47); Hemoglobin 12.5 g/dL (12.0-15.0); Lymphocyte # 2.85 X10^3/ul (4.0); Mean Corp Hgb Conc 30.6 g/dL (32-36); Mean Corpuscular Hgb 25.9 pg (27.0-32.0); Mean Corpuscular Volume 84.5 fL (81-99); Mean Platelet Vol. 10.6 fl (6.2-12.0); Monocyte# 0.67 X10^3/uL; Monocyte% 9.9 % (0-10); NRBC Flagged by Analyzer 0 % (0-5); Neutrophil # 3.03 X10^3/uL (2.7-7.7); Neutrophil % 44.5 % (47-70); Platelet Count 373 K/mm3 (150-450); RBC Distribution Width CV 17.6 % (11.6-14.6); RBC Distribution Width SD 53.7 fl (35.1-43.9); Red Blood Count 4.83 M/mm3 (4.2-5.4); White Blood Count 6.8 K/mm3 (4.4-11.0)
[2019-12-18] MEDS: Ondansetron 4 MG/2 ML Vial IV (05:40)
[2019-12-18] MEDS: 0.9% Normal Saline 1,000 ML 1000 ML IV (05:40)
[2019-12-18 05:50] LABS: Mucous, Urine 0 SEEN /hpf (<or=2+); Red Blood Cells-Urine 0 SEEN /hpf (0-5); Squamous Epithelial Cells - UA 0 SEEN /hpf (5-10)
[2019-12-18 05:52] LABS: Glucose, Dipstick Normal (Normal); Ketone-Dipstick 15 mg/dl (Negative); Leukocyte Esterase-Dipstick 500 /ul (Negative); Nitrite-Dipstick Positive (Negative); Occult Blood-Urine 10 /ul (Negative); Protein-Dipstick Negative (Negative); Urine Clarity Sl. Cloudy (Clear); Urine Urobilinogen 4 mg/dl (Normal)
[2019-12-18 05:54] LABS: Color, Urine Yellow (Yellow); Urine Bilirubin Dipstick 1 mg/dL (Negative)
[2019-12-18 05:56] LABS: Bacteria 2+ /hpf (None Seen); White Blood Cells 5-10 SEEN /hpf (0-5)
[2019-12-18 05:58] LABS: ALB/GLOB Ratio 0.7 RATIO (0.9-2.4); AST(SGOT) 144 U/L (15-37); Alanine Aminotransfer ALT/SGPT 112 U/L (13-56); Albumin, Serum 2.8 g/dL (3.2-5.0); Alkaline Phosphatase 178 U/L (45-117); Anion Gap 9 (5-15); BUN 12 mg/dL (7-18); BUN/Creat Ratio 18.4 RATIO (10-20); Calcium,Total 8.8 mg/dL (8.5-10.1); Chloride 114 mmol/L (98-107); Creatinine, Serum 0.65 mg/dL (0.55-1.02); EST Glomerular Filtration Rate 101 mL/min (>60); Est Glom Filt Rate - Afr Amer 122 mL/min (>60); Estimated Creatinine Clearance 78.25 ml/min; Glucose 92 mg/dL (74-106); Lipase 49 U/L (73-393); Potassium 3.4 mmol/L (3.5-5.1); Protein, Total 6.8 g/dL (6.4-8.2); Sodium Level 146 mmol/L (136-145)
[2019-12-18] MEDS: Cephalexin 250 MG Capsule 500 MG PO (06:15)
[2019-12-18 06:17] VITALS: BP 139/78; PULSE 82; RESP 16; O2SAT 97
== END 2019-12-18 06:20 | disposition home or self-care (01) ==
PROVIDERS: Emergency Provider Emergency Medicine; PCP Family Medicine
DX: N39.0 Urinary tract infection, site not specified (principal); E66.9 Obesity, unspecified; M79.7 Fibromyalgia; M32.9 Systemic lupus erythematosus, unspecified; G62.9 Polyneuropathy, unspecified; M06.9 Rheumatoid arthritis, unspecified; M19.90 Unspecified osteoarthritis, unspecified site; Z79.899 Other long term (current) drug therapy
CPT/HCPCS: 80053; 81001; 83690; 85025; 96361; 96374; 99284; J7030; A4216; J2405

== ENCOUNTER → 2020-04-08 17:44 | Outpatient (CLI) | payer MEDICARE, SELFPAY | LOC: MTDU 17:44 | PROVIDERS: PCP Family Medicine | DX: Z20.828 Contact with and (suspected) exposure to other viral communicable diseases (principal) | CPT/HCPCS: 87635; 94799; U0003 ==

== ENCOUNTER 2021-05-18 18:39 | Emergency (ER) | payer MEDICARE, SELFPAY ==
[2021-05-18 18:40] VITALS: BP 112/74; PULSE 86; RESP 16; TEMP 36.6; O2SAT 100; BMI 37.5
--- NOTE | 2021-05-18 19:40 | RAD_ITS ---
STUDY: X-RAY - LEFT KNEE REASON FOR EXAM: Female, 55 years old. PAIN TECHNIQUE: 4 view(s) of the knee. COMPARISON: 01/12/2019. FINDINGS: Normal visualized distal femur. New cystic changes at the proximal tibia medially. Normal visualized fibula. Normal proximal tibiofibular articulation. Normal medial femorotibial compartment. Normal lateral femorotibial compartment. Normal patellofemoral articulation. Small suprapatellar effusion. The soft tissue structures are unremarkable. RAD/Knee 4 or More Views IMPRESSION: Small effusion of the knee. Interval cystic changes at the medial proximal tibia since the previous study. Correlation with MRI if clinically needed. Electronically Signed: Adrián Cano DO at 20:59 EDT Tel [phone], Service support ,
[2021-05-18 21:15] VITALS: PULSE 61; O2SAT 87
[2021-05-18 21:34] VITALS: O2SAT 77
[2021-05-18 21:35] VITALS: O2SAT 96
--- NOTE | 2021-05-18 22:10 | EDS_ITS ---
HPI History of Present Illness Chief Complaint: Lower Extremity Injury Detail of Chief Complaint: Atraumatic left knee pain Informant: patient Onset/Context/Timing Onset: Weeks Context: Gradual Onset Timing: Continuous Current Severity: Mild Maximum Severity: Mild Narrative Narrative: 55-year-old female history of rheumatoid and osteoarthritis. Also lupus. States she is had left knee pain for 2 weeks. Denies any fall injury or trauma. No fever or chills. No prior knee surgery. Worse with weightbearing or movement. No redness. Prior similar symptoms: No Recent Illness/Hospitalization: No PFSH PFSH Medical History EDWARDS (nonalcoholic steatohepatitis) Osteoarthritis Rheumatoid arthritis Home Medications duloxetine 60 mg PO DAILY 06/28/13 [History Last Taken 05/25/17] levothyroxine 88 mcg PO DAILY 06/28/13 [History Last Taken 05/25/17] topiramate 200 mg PO BID 06/28/13 [History Last Taken 05/25/17] zolpidem [Ambien] 10 mg PO QHS PRN PRN 06/29/13 [History Last Taken 05/25/17] buspirone 10 mg PO TID 12/18/19 [History Last Taken Unknown] oxycodone-acetaminophen [Percocet] 1 tab PO Q6H PRN 4 Days #14 tab 05/18/21 [Rx Last Taken Unknown] Allergy/AdvReac Type Severity Reaction Status Date / Time hydrocodone bitartrate AdvReac Other Verified 05/18/21 18:39 [From Vicodin] sulfamethoxazole AdvReac Vomiting Verified 05/18/21 18:39 [From Bactrim] trimethoprim [From Bactrim] AdvReac Vomiting Verified 05/18/21 18:39 Surgical History H/O: hysterectomy Social History Smoking Status: Never smoker ROS ROS ED ROS Narrative Denies recent illness. Review of Systems ROS Unobtainable: Denies due to encephalopathy Constitutional Constitutional ED: Denies chills or fever(s) Eyes Eyes: Denies change in vision ENT ENT ED: Denies ear pain Cardiovascular Cardiovascular: Denies chest pain Respiratory/Chest Respiratory/Chest: Denies cough or dyspnea Gastrointestinal Gastrointestinal: Denies abdominal pain, nausea or vomiting Genitourinary Genitourinary ED: Denies dysuria Musculoskeletal Musculoskeletal: Denies myalgias Integumentary Denies rash Neurologic Neurologic: Denies headache(s) Psychiatric Psychiatric: Denies depression Endocrine Endocrinology: Denies polyuria Hematologic/Lymphatic Hematologic/Lymphatic: Denies easy bruising Allergic/Immunologic Allergic/Immunologic ED: Denies urticaria EXAM Physical Exam Narrative Exam Narrative: Middle-aged female no acute distress. Vital signs are stable she is afebrile. Heart and lung exam unremarkable. Left knee mild swelling and tenderness. No redness or warmth. Discomfort with range of motion. Small effusion. Left foot chronic changes from rheumatoid arthritis. Dorsi plantarflexion intact. Hips nontender. Const Vital Signs: 05/18/21 18:40 05/18/21 21:15 05/18/21 21:34 Temperature 97.9 F Temperature Source Temporal Pulse Rate 86 61 Respiratory Rate 16 Blood Pressure 112/74 Blood Pressure Mean 86 Pulse Ox 100 87 77 Oxygen Delivery Method Room Air Room Air Oxygen Flow Rate (L/min) 05/18/21 21:35 Temperature Temperature Source Pulse Rate Respiratory Rate Blood Pressure Blood Pressure Mean Pulse Ox 96 Oxygen Delivery Method Nasal Cannula Oxygen Flow Rate (L/min) 2 Positive well nourished and well developed General Appearance ED: well developed and NAD HEENT Reports moist mucous membranes normocephalic and atraumatic; Negative for trauma or tenderness Eyes PERRL Neck full ROM and supple Thyroid: Negative for tender Chest Wall inspection of chest normal and palpation of chest normal Resp normal respiratory effort, no retractions and clear to auscultation bilaterally Auscultation: Negative for rales, rhonchi or wheezes Cardio regular rate, regular rhythm, S1 normal heart sound, S2 normal heart sound and no murmurs GI non-tender, non-distended and no masses Auscultation: normoactive bowel sounds Palpation: soft; Negative for tender Back/Spine no CVA tenderness General Back: Negative for CVA tenderness Cervical Spine: Negative for cervical spine tenderness Thoracic Spine / Upper Back: Negative for thoracic spinal tenderness Lumbar Spine / Lower Back: Negative for lumbar spinal tenderness or straight leg raise negative bilaterally Extremity Negative for normal to inspection Extremity Narrative: Left knee mild swelling. Decreased range of motion from discomfort. No redness or warmth. No cellulitis. No septic joint. Consistent with joint effusion and arthritic changes. General Extremety ED: Negative for cyanosis or edema General Extremity: Negative for cyanosis or edema Neuro oriented x3 Sensorium / Orientation: alert, oriented to person, oriented to place and oriented to time Psych mental status grossly normal Skin Lesions: no lesions Rashes: no rashes MDM MDM MDM Narrative Medical decision making narrative: Exam and history and x-ray are consistent with left knee effusion and arthritis. She has a history of rheumatoid and osteoarthritis. To be given Cubero here for pain. Prescription for Percocet. Follow-up with her orthopedic surgeon Dr. Gurdeep Boothe. Radiography Diagnostic Testing: Radiology Impression Knee X-Ray 05/18/21 19:40 IMPRESSION: Small effusion of the knee. Interval cystic changes at the medial proximal tibia since the previous study. Correlation with MRI if clinically needed. Electronically Signed: Adrián Cano DO at 20:59 EDT Tel [phone], Service support , Left knee x-rays 3 views interpreted by myself the radiologist. Chronic degenerative joint disease with effusion. No fracture. Discharge Plan Triage Chief Complaint: Lower Extremity Injury ED Provider: Calixot Tapia Dx/Rx/DC Orders Clinical Impression: Effusion of knee joint, left, Arthritis Instructions: ED Knee Effusion, ED Osteoarthritis Prescriptions: New oxycodone-acetaminophen [Percocet] 5-325 mg tablet 1 tab PO Q6H PRN (Reason: pain) 4 Days Qty: 14 RF: 0 No Action levothyroxine 75 MCG tablet 88 mcg PO DAILY RF: 0 topiramate 100 MG tablet 200 mg PO BID RF: 0 duloxetine 60 MG capsule 60 mg PO DAILY RF: 0 zolpidem [Ambien] 10 MG tablet 10 mg PO QHS PRN PRN (Reason: Insomnia) RF: 0 buspirone 10 MG tablet 10 mg PO TID RF: 0 Primary Care Provider: Cirilo Arnold III Referrals: Gurdeep Boothe MD [NON-STAFF] - 1 Week if not improving Cirilo Arnold III, MD [Primary Care Provider] - Activity Restrictions/Additional Instructions: Ice and elevate. Motrin to decrease pain and swelling. Percocet for more severe pain. Follow-up with your orthopedic physician Dr. Gurdeep Boothe if not improving in 1 to 2 weeks for further evaluation and possible knee joint injection. Disposition Disposition: Home, Self Care
[2021-05-18 22:23] VITALS: O2SAT 96
[2021-05-18] MEDS: HYDROcodone Bitartrate/Apap 5/325 Tablet PO (22:36)
[2021-05-18 22:49] VITALS: TEMP 36.1
== END 2021-05-18 22:49 | disposition home or self-care (01) ==
LOC: ED 22:26
PROVIDERS: Emergency Provider Emergency Medicine; PCP Physician Assistant
DX: M17.12 Unilateral primary osteoarthritis, left knee (principal); M06.9 Rheumatoid arthritis, unspecified
CPT/HCPCS: 73564; 99283

== ENCOUNTER 2022-06-14 00:06 | Observation (INO) | payer MEDICARE, SELFPAY ==
[2022-06-14] VITALS (7 sets, daily range): BP systolic 124–156; BP diastolic 70–104; PULSE 69–115; RESP 16–20; TEMP 36.2–37.1; O2SAT 97–100; BMI 32.1; BMI 32.3
[2022-06-14 00:45] LABS: Absolute Lymphocyte Count 1.22 X10^3/uL (0.83-4.51); Absolute Neutrophil Count 3.2 X10^3/uL (2.0-7.7); Basophil# 0.02 X10^3/uL; Basophil% 0.4 % (0-1); Hematocrit 38.1 % (37-47); Hemoglobin 10.9 g/dL (12.0-15.0); Lymphocyte # 1.22 X10^3/ul (0.83-4.51); Lymphocyte % 25.8 % (19-41); Mean Corp Hgb Conc 28.6 g/dL (32-36); Mean Corpuscular Hgb 21.9 pg (27.0-32.0); Mean Corpuscular Volume 76.7 fL (81-99); Mean Platelet Vol. 10.4 fl (6.2-12.0); Monocyte# 0.25 X10^3/uL; Monocyte% 5.3 % (0-10); NRBC Flagged by Analyzer 0 % (0-5); Neutrophil # 3.22 X10^3/uL (2.7-7.7); Neutrophil % 68.1 % (47-70); Platelet Count 269 K/mm3 (150-450); RBC Distribution Width CV 17.3 % (11.6-14.6); RBC Distribution Width SD 47.9 fl (35.1-43.9); Red Blood Count 4.97 M/mm3 (4.2-5.4); White Blood Count 4.7 K/mm3 (4.4-11.0)
--- NOTE | 2022-06-14 00:46 | EX.ED.DYSGE1 ---
HPI History of Present Illness Chief Complaint: Other, Pain/Inj Narrative Narrative: Patient is a 56-year-old female who reports a past medical history of rheumatoid arthritis lupus hypothyroidism and fibromyalgia. She states she lives with her sister who helps take care of her. She states that he has been feeling like she is in a flare with increased generalized pain for the past 10 days. She states she was placed on oral steroids but despite taking these had minimal symptom improvement. She states that it is to the point now where she feels like she has difficulty taking care of her self where she cannot brush her hair or has difficulty standing and walking. Because of the persistent symptoms and increased pain she presents for evaluation. The patient does state that she was able to drive to the ER this evening despite the initial report that she has not been able to ambulate because of her symptoms. [facility] Medical History (Updated 06/14/22 @ 04:[address] Raymond Brooks DO) Fibromyalgia Lupus EDWARDS (nonalcoholic steatohepatitis) Neuropathy Osteoarthritis Rheumatoid arthritis Home Medications duloxetine 60 mg capsule,delayed release 60 mg PO DAILY 06/28/13 [History Last Taken 05/25/17] levothyroxine 75 mcg tablet 88 mcg PO DAILY 06/28/13 [History Last Taken 05/25/17] topiramate 100 mg tablet 200 mg PO BID 06/28/13 [History Last Taken 05/25/17] zolpidem 10 mg tablet (Ambien) 10 mg PO QHS PRN PRN Insomnia 06/29/13 [History Last Taken 05/25/17] buspirone 10 mg tablet 10 mg PO TID 12/18/19 [History Last Taken Unknown] oxycodone-acetaminophen 5 mg-325 mg tablet (Percocet) 1 tab PO Q6H PRN pain 4 days #14 tabs 05/18/21 [Rx Last Taken Unknown] Allergy/AdvReac Type Severity Reaction Status Date / Time hydrocodone bitartrate AdvReac Other Verified 06/14/22 00:08 [From Vicodin] sulfamethoxazole AdvReac Vomiting Verified 06/14/22 00:08 [From Bactrim] trimethoprim [From Bactrim] AdvReac Vomiting Verified 06/14/22 00:08 Family History (Updated 06/14/22 @ 04:[address] Lina Welsh MD) Mother COPD (chronic obstructive pulmonary disease) Hypertension Father Varicose veins of both lower extremities Surgical History (Updated 06/14/22 @ 04:[address] Lina Welsh MD) H/O: hysterectomy History of cholecystectomy History of ovarian cystectomy History of Jason-en-Y gastric bypass Social History (Updated 06/14/22 @ 04:[address] Lina Welsh MD) household members: other details: Lives with her sister who assists in her care. Smoking Status: Never smoker alcohol intake: never substance use type: does not use ROS ROS ED Constitutional Constitutional ED: Denies chills or fever(s) Eyes Eyes: Denies change in vision ENT ENT ED: Denies sore throat Cardiovascular Cardiovascular: Denies chest pain Respiratory/Chest Respiratory/Chest: Denies cough or dyspnea Gastrointestinal Gastrointestinal: Denies abdominal pain, diarrhea, nausea or vomiting Genitourinary Genitourinary ED: Denies dysuria Musculoskeletal Musculoskeletal: Reports arthralgias, back pain, myalgias and neck pain Integumentary Denies rash Neurologic Neurologic: Reports weakness; Denies headache(s) Hematologic/Lymphatic Hematologic/Lymphatic: Denies easy bleeding or easy bruising EXAM Physical Exam Const Vital Signs: 06/14/22 00:08 06/14/22 00:14 06/14/22 03:56 Temperature 98.7 F 98 F Temperature Source Temporal Temporal Pulse Rate 89 70 Respiratory Rate 18 20 H Respiratory Effort Normal Non-Labored Respiratory Pattern Normal Blood Pressure 156/104 H 151/90 H Blood Pressure Mean 121 110 Pulse Ox 98 97 Oxygen Delivery Method Room Air Room Air Positive well nourished and well developed General Appearance ED: well developed HEENT Reports dry mucous membranes Mouth ED: Yes dry mucous membranes Mouth: dry mucous membranes Eyes PERRL and EOMs intact bilaterally Neck supple Neck Narrative: Thyroid is without nodule or goiters Resp normal respiratory effort and clear to auscultation bilaterally Cardio regular rate and regular rhythm Rate: other Other Details: Radial pulses are plus 2 out of 4 bilaterally are equal and symmetric GI normal to inspection, nondistended, normoactive bowel sounds, non-tender and non-distended GI Narrative: No voluntary guarding or rigidity no pulsatile mass Auscultation: normoactive bowel sounds Palpation: soft Extremity Extremity Narrative: Patient has contractures and chronic deformities of her fingers and toes consistent with advanced rheumatoid arthritis Neuro oriented x3 and CN's II-XII intact bilaterally Sensorium / Orientation: alert Psych mental status grossly normal Skin no rashes or lesions noted MDM MDM MDM Narrative Medical decision making narrative: Patient presented to the ER slightly hypertensive but otherwise with stable vital. Exam did not suggest any acute infectious process. She did report however that she felt she was going through a flare of her RA which was not responding to the steroids that were recently prescribed. Secondary to his elected to check basic laboratory values. White count is normal there is no elevation to ESR CRP. Her calcium is slightly low at 8 but chart review reveals that this is not far off from her baseline. She was given IV hydration as well as a total of 2 mg of Dilaudid. Despite this she states she still has intractable pain. Patient still feels like she cannot care for herself at home. Therefore at this time patient will be admitted to the hospital for intractable pain and she is agreeable to placement in a prison/rehab facility if necessary Lab Data Attestation: I reviewed the patient's lab results. Labs: Laboratory Results - last 24 hr 06/14/22 06/14/22 00:40 00:40 WBC 4.7 RBC 4.97 Hgb 10.9 L Hct 38.1 MCV 76.7 L MCH 21.9 L MCHC 28.6 L RDW Std Deviation 47.9 H RDW Coeff of Neal 17.3 H Plt Count 269 MPV 10.4 Immature Gran % (Auto) 0.400 Neut % (Auto) 68.1 Lymph % (Auto) 25.8 [place] % (Auto) 5.3 Eos % (Auto) 0.0 Baso % (Auto) 0.4 Absolute Neuts (auto) 3.2 Absolute Lymphs (auto) 1.22 Nucleated RBC % 0 ESR 13 Sodium 143 Potassium 3.6 Chloride 115 H Carbon Dioxide 23.0 Anion Gap 5 BUN 20 H Creatinine 0.62 Estim Creat Clear Calc 80.13 Est GFR (MDRD) Af Amer 129 Est GFR (MDRD) Non-Af 106 BUN/Creatinine Ratio 32.5 H Glucose 108 H Calcium 8.0 L Magnesium 2.5 C-React Prot Ext Range < 2.90 TSH 2.01 Discharge Plan Triage Chief Complaint: Other, Pain/Inj ED Provider: Raymond Brooks Dx/Rx/DC Orders Clinical Impression: Rheumatoid arthritis flare, Intractable pain, Hypocalcemia Primary Care Provider: Jocelyn Wolff Disposition Disposition: Acute Care Hospital [facility]
[2022-06-14] MEDS: 0.9% Normal Saline 1,000 ML 999 ML IV (00:47)
[2022-06-14] MEDS: Ondansetron 4 MG/2 ML Vial IV (00:49)
[2022-06-14 00:50] LABS: Erythrocyte Sedimentation Rate 13 mm/hr (0-30)
[2022-06-14] MEDS: HYDROmorphone 1 MG/ML Syringe IV ×2 (00:54→01:42)
[2022-06-14] MEDS: Hydrocortisone Sod Succinate 100 MG/2 ML Vial IV (00:59)
[2022-06-14 01:10] LABS: Anion Gap 5 (5-15); BUN 20 mg/dL (7-18); BUN/Creat Ratio 32.5 RATIO (10-20); CRP < 2.90 mg/L (0.0-3.0); Chloride 115 mmol/L (98-107); Creatinine, Serum 0.62 mg/dL (0.55-1.02); EST Glomerular Filtration Rate 106 mL/min (>60); Est Glom Filt Rate - Afr Amer 129 mL/min (>60); Estimated Creatinine Clearance 80.13 ml/min; Glucose 108 mg/dL (74-106); Magnesium 2.5 mg/dL (1.6-2.6); Potassium 3.6 mmol/L (3.5-5.1); Sodium Level 143 mmol/L (136-145); Thyroid Stim Hormone (TSH) 2.01 uIU/mL (0.358-3.74)
--- NOTE | 2022-06-14 03:47 | PCM.HP.STD ---
HPI - General General Date of Admission: 06/14/22 Date of Service: 06/14/22 Chief Complaint: Diffuse joint pain. HPI Narrative The patient is a 56 y/o F w/ PMHx: Hypothyroidism, Anxiety and Depression, Rheumatoid arthritis, Chronic neuropathy, EDWARDS, Lupus, Fibromyalgia, Chronic microcytic anemia, Obesity who presents to the [facility] ED on 06/14/22 with history of residing with her sister who helps her with her care with significant rheumatoid arthritic flare with increased generalized joint pain over the last 10 days recently placed on steroids orally however she is not had much improvement and has a difficulty taking care of her self even brushing her hair or difficulty standing or walking with persistent ongoing symptoms prompting ED evaluation. In the ED despite pain regimen she is currently reporting ongoing severe 10/10 pain. She notes that her hands, hips, knees and feet hurt the most. She notes usually steroids (taper which she took) work to alleviate her flare pain but did not this time. Work-up in the ED included T98.7, heart rate 89, BP 156/104, respiratory rate 18, 98% on room air, CBC with WC 4.7, hemoglobin 10.9, MCV 76.7, platelet 269 without marked shift, ESR 13, BMP with chloride 115, BUN/creat 20/0.62, glucose 108, calcium 8.0 with ionized calcium pending per ED, magnesium 2.5, TSH 2.01, CRP less than 2.90. In the ED patient ministered normal saline bolus, hydrocortisone 100 mg IV x1, Dilaudid 1 mg IV x2 as well as Zofran 4 mg IV x1. [facility] Medical History (Updated 06/14/22 @ 04:[address] Raymond Brooks, ) Fibromyalgia Lupus EDWARDS (nonalcoholic steatohepatitis) Neuropathy Osteoarthritis Rheumatoid arthritis Home Medications duloxetine 60 mg capsule,delayed release 60 mg PO DAILY 06/28/13 [History Last Taken 05/25/17] levothyroxine 75 mcg tablet 88 mcg PO DAILY 06/28/13 [History Last Taken 05/25/17] topiramate 100 mg tablet 200 mg PO BID 06/28/13 [History Last Taken 05/25/17] zolpidem 10 mg tablet (Ambien) 10 mg PO QHS PRN PRN Insomnia 06/29/13 [History Last Taken 05/25/17] buspirone 10 mg tablet 10 mg PO TID 12/18/19 [History Last Taken Unknown] oxycodone-acetaminophen 5 mg-325 mg tablet (Percocet) 1 tab PO Q6H PRN pain 4 days #14 tabs 05/18/21 [Rx Last Taken Unknown] Allergy/AdvReac Type Severity Reaction Status Date / Time hydrocodone bitartrate AdvReac Other Verified 06/14/22 00:08 [From Vicodin] sulfamethoxazole AdvReac Vomiting Verified 06/14/22 00:08 [From Bactrim] trimethoprim [From Bactrim] AdvReac Vomiting Verified 06/14/22 00:08 Family History (Updated 06/14/22 @ 04:[address] Lina Welsh MD) Mother COPD (chronic obstructive pulmonary disease) Hypertension Father Varicose veins of both lower extremities Surgical History (Updated 06/14/22 @ 04:[address] Lina Welsh MD) H/O: hysterectomy History of cholecystectomy History of ovarian cystectomy History of Jason-en-Y gastric bypass Social History (Updated 06/14/22 @ 04:[address] Lina Welsh MD) household members: other details: Lives with her sister who assists in her care. Smoking Status: Never smoker alcohol intake: never substance use type: does not use ROS ROS Narrative Admission Review of Systems: CONSTITUTIONAL: No weight loss, fever, chills, + weakness or fatigue. HEENT: Eyes: No visual loss, blurred vision, double vision or yellow sclerae. Ears, Nose, Throat: No hearing loss, sneezing, congestion, runny nose or sore throat. SKIN: No rash or itching, lesions, wounds. CARDIOVASCULAR: No chest pain, chest pressure or chest discomfort, palpitations, edema, orthopnea, syncopal events. RESPIRATORY: No shortness of breath, cough or sputum, wheezing, hemoptysis. GASTROINTESTINAL: No anorexia, nausea, vomiting or diarrhea, abdominal pain, melena, BRBPR. GENITOURINARY: No dysuria, frequency, urgency or retention. NEUROLOGICAL: No headache, dizziness, syncope, paralysis, ataxia, numbness or tingling in the extremities, focal weakness, change in bowel or bladder control, seizure. MUSCULOSKELETAL: + muscle, back pain, joint pain or stiffness. HEMATOLOGIC: + anemia, bleeding or bruising. LYMPHATICS: No enlarged nodes. No history of splenectomy. PSYCHIATRIC: + history of depression or anxiety. ENDOCRINOLOGIC: No reports of sweating, cold or heat intolerance. No polyuria or polydipsia. ALLERGIES: No history of asthma, hives, eczema or rhinitis. Vital Signs Vital Signs Vital Signs: 06/14/22 00:08 10 00:14 Temperature 98.7 F Temperature Source Temporal Pulse Rate 89 Respiratory Rate 18 Respiratory Effort Normal Non-Labored Respiratory Pattern Normal Blood Pressure 156/104 H Blood Pressure Mean 121 Pulse Ox 98 Oxygen Delivery Method Room Air Weight Weight: 175 lb 7.807 oz Body Mass Index (BMI) 32.1 Physical Exam Narrative Physical Examination: General: Awake, alert, oriented x 3 and cooperative, laying in the ED bed, fatigued, no acute distress, does report ongoing 10 of 10 severe pain but appears comfortable. Skin: Normal color, normal turgor, no icterus, no cyanosis except bilateral lower extremity venous stasis skin changes. HEENT: AT/NC, EOMI, PERRLA, mildly dry MM, no carotid bruits or JVD noted. Lungs: CTA bilaterally, moderate effort, mild decrease BL bases, no rales, ronchi or wheezing. Heart: Regular rate and rhythm; no gallop, rub audible. Abdomen: Soft, obese, NTTP, ND, mildly hyperactive BS, no HSM. Extremities: No cyanosis, clubbing, or edema, significant upper primarily hand and pedal contractures of the digits with underlying rheumatoid history as noted. Neurological: Patient awake, alert, oriented as noted, cognitive function intact; pupils equally reactive to light and accommodation, cranial nerves II-XII grossly normal, moving all 4 extremities although limited by pain in her joints, strength accordingly moderately to severely global decreased, No specific focal deficits. Psychiatric: Affect appears fatigued otherwise appears comfortable despite pain complaints, no acute evidence of depressive or anxiety feelings. Results Lab / Micro Data Result Diagrams: 06/14/22 00:40 06/14/22 00:40 Labs: Laboratory Results - last 24 hr 06/14/22 00:40: WBC 4.7, RBC 4.97, Hgb 10.9 L, Hct 38.1, MCV 76.7 L, MCH 21.9 L, MCHC 28.6 L, RDW Std Deviation 47.9 H, RDW Coeff of Neal 17.3 H, Plt Count 269, MPV 10.4, Immature Gran % (Auto) 0.400, Neut % (Auto) 68.1, Lymph % (Auto) 25.8, [place] % (Auto) 5.3, Eos % (Auto) 0.0, Baso % (Auto) 0.4, Absolute Neuts (auto) 3.2, Absolute Lymphs (auto) 1.22, Nucleated RBC % 0, ESR 13 06/14/22 00:40: Sodium 143, Potassium 3.6, Chloride 115 H, Carbon Dioxide 23.0, Anion Gap 5, BUN 20 H, Creatinine 0.62, Estim Creat Clear Calc 80.13, Est GFR (MDRD) Af Amer 129, Est GFR (MDRD) Non-Af 106, BUN/Creatinine Ratio 32.5 H, Glucose 108 H, Calcium 8.0 L, Magnesium 2.5, C-React Prot Ext Range < 2.90, TSH 2.01 Assessment & Plan Assessment/Plan (1) Rheumatoid arthritis flare: PLAN: Plan The patient is a 56 y/o F w/ PMHx: Hypothyroidism, Anxiety and Depression, Rheumatoid arthritis, Chronic neuropathy, EDWARDS, Lupus, Fibromyalgia, Chronic microcytic anemia, Obesity who presents to the [facility] ED on 06/14/22 with history of residing with her sister who helps her with her care with significant rheumatoid arthritic flare with increased generalized joint pain over the last 10 days recently placed on steroids orally however she is not had much improvement and has a difficulty taking care of her self even brushing her hair or difficulty standing or walking with persistent ongoing symptoms prompting ED evaluation. #1. Questionable Rheumatoid Arthritis Flare: Patient reports notable joint pain, states similar to prior flares, treated with steroid taper outpatient with improvement, but would have expected WBC elevation and also ESR/CRP elevation if ongoing. Given however ongoing notable pain complaint, will admit to medical surgical floor, will initiate scheduled low-dose IV Toradol regimen, will initiate IV Solu-Medrol then plan transition to oral steroids, ice to affected joints and heating pads as needed to sore musculature, will place on PPI given usage NSAIDS/steroids, will add low dose TID gabapentin, will need to consider initiation of additional agents and from review of records patient does not appeat to even be on MTX, PRN oral and IV pain regimen, maintain on fall precautions, PT/OT/case management for discharge planning with potentially skilled facility placement needs. #2. Elevated BP without HTN diagnosis: BP elevated upon ED presentation, possibly pain related, will continue to closely monitor and add oral regimen if appropriate, as needed IV hydralazine in interim. #3. SLE: From review of patient's medications not on any specific medication for underlying reported lupus history, encourage continued outpatient follow-up. #4. Chronic microcytic anemia: Admission hemoglobin 10.9, MCV 76.7, baseline prior hemoglobin appears primarily 11-12 range, iron panel, ferritin pending, trend CBC. Given history of bypass surgery although microcytic, will obtain vitamin b12/folic acid levels. #5. Anxiety and depression: We will continue patient home BuSpar and duloxetine on regimen. #6. Hypothyroidism: We will continue patient home levothyroxine regimen, TSH within normal level. #7. Obesity: Weight loss and lifestyle changes encouraged. #8. DVT prophylaxis: SCDs, Lovenox. #9. CODE status: Patient does not have a healthcare power of travograph operator nor living will in place. Discussed CODE status at length including difference between FULL code, DNR-CCA and DNR-CC status. Following discussions about the differences in these status, requested Full Code status. Advanced Care Planning Face to Face Time: 16 minutes. Charges/Coding Visit Charges OBSV E&M: 50644 Initial observation care L3 Procedures Hospitalists Procedures: 39774 Advncd Care Plan 30 Min
[2022-06-14] MEDS: 0.9% Saline Lock 10 ML Syringe IV (05:16)
[2022-06-14] MEDS: 0.9% Normal Saline 1,000 ML 100 ML IV (05:16)
[2022-06-14] MEDS: busPIRone 5 MG Tablet 10 MG PO ×2 (05:24→14:19)
[2022-06-14] MEDS: Pantoprazole Sodium 40 MG Tablet PO (05:24)
[2022-06-14] MEDS: Gabapentin 100 MG Capsule PO ×2 (05:24→10:15)
[2022-06-14] MEDS: Ketorolac 15 MG/ML Vial IV ×2 (05:25→14:19)
[2022-06-14] MEDS: Levothyroxine 88 MCG Tablet PO (05:26)
[2022-06-14 07:34] LABS: Ferritin 4 ng/mL (8-252); Iron 15 ug/dL (50-170); Iron Binding Capacity,Total 396 ug/dL (250-450); PERCENT IRON SATURATION 3.8 % (15.0-55.0)
[2022-06-14 08:08] LABS: Vitamin B12 163 pg/mL (211-911)
[2022-06-14] MEDS: HYDROmorphone 0.5 MG/0.5 ML SYRINGE IV (08:33)
--- NOTE | 2022-06-14 10:00 | CASEMGMT ---
SW participated in d/c planning rounds with physician who recommends and patient is agreeable to halfway facility placement. OMAR notified DC administrative assistant coordinator of plan and to please follow up for patient choice and start the referral process. Genie MAGUIRE
--- NOTE | 2022-06-14 10:07 | CASEMGMT ---
Addendum entered by Martha Mcclain 06/14/22 10:55: Discharge Economic Adviser This science writer called Katerina at TCU to notify Katerina of referral. Katerina has reviewed patient information and patient was accepted at TCU. OMAR Prescott notified. Shaista Discharge Economic Adviser Original Note: Discharge Economic Adviser Face-to face visit with patient at bedside. Introduced self and explained role. This science writer provided a list of SNF providers including quality and resource use data and consistent with the pt's preferred geographic region, medical needs, and insurance network via [facility] Guide Link. Patient first choice is TCU. OMAR Prescott notified. Shaista DC Partner Marketing Intern
[2022-06-14] MEDS: Topiramate 200 MG Tablet PO (10:15)
[2022-06-14] MEDS: oxyCODONE 5 MG Tablet 10 MG PO ×2 (10:15→14:22)
[2022-06-14] MEDS: DULoxetine Hcl 60 MG Capsule PO (10:16)
[2022-06-14] MEDS: Enoxaparin 40 MG/0.4 ML Syringe SC (10:16)
--- NOTE | 2022-06-14 10:16 | CASEMGMT ---
Patient is requesting SNF placement. Martha d/c asst. spoke with patient and she is requesting [facility]. Martha offered a list of SNF providers including quality and resource use data and consistent with patient?s preferred geographic region, medical needs, and insurance network from the CarePort Guide. Per Martha patient declined list as she wants TCU. Martha contacted Katerina in TCU and pharmacy will look over patient's medications and get back to Martha. Plan: d/c to [facility] under skilled level of care. Genie MAGUIRE
[2022-06-14] MEDS: tiZANidine HCl 2 MG Tablet 4 MG PO ×2 (10:19→14:19)
--- NOTE | 2022-06-14 11:30 | CASEMGMT ---
Patient was accepted in TCU. Plan: d/c to [facility] when medically ready. Genie MAGUIRE
--- NOTE | 2022-06-14 12:42 | TREXTCAR_ITS ---
Diet Diet Order/Speech Therapy: 06/14/22 04:45 Diet: Cardiac - Heart Healthy Food consistency:: Regular Liquid Consistency:: Regular/Thin Routine Orders/Code Status Code Status: Full Code Wound(s) guilherme bottom of feet: Wound Type: calluses Therapies Weight Bearing: Full weight bearing Physical Therapy: Eval and Treat Occupational Therapy: Eval and Treat Problem/Diagnosis (1) Rheumatoid arthritis flare: Status: Acute Code(s): M06.9 - Rheumatoid arthritis, unspecified (2) Hypothyroidism: Status: Chronic Code(s): E03.9 - Hypothyroidism, unspecified (3) Fibromyalgia: Status: Chronic Code(s): M79.7 - Fibromyalgia (4) Iron deficiency anemia: Status: Chronic Code(s): D50.9 - Iron deficiency anemia, unspecified (5) Vitamin B12 deficiency: Status: Chronic Code(s): E53.8 - Deficiency of other specified B group vitamins (6) Chronic migraine: Status: Chronic (7) Chronic depression: Status: Chronic Code(s): F32.A - Depression, unspecified Allergies/Procedures Done in Hospital Allergies hydrocodone bitartrate [From Vicodin] Adverse Reaction (Verified 06/14/22 00:08) Other sulfamethoxazole [From Bactrim] Adverse Reaction (Verified 06/14/22 00:08) Vomiting trimethoprim [From Bactrim] Adverse Reaction (Verified 06/14/22 00:08) Vomiting Procedures: None Type of Care/Length of Stay Estimated LOS: Convalescent Care Less Than 30 days Type of Care Needed: Skilled Rehab Potential: Good Prognosis: Good Additional Orders/Day of Discharge H&P will serve as current which was dated: 06/14/22 Day of Discharge: 06/14/22 Dietary and Speech Recommendations Dietitian Recommendations/Changes: RD will change diet to Regular. Will reassess need for ONS at follow-up. Discharge Plan Admission Admit Date/Time: 06/14/22 03:49 Primary Reason for Your Visit: Debility, rheumatoid arthritis flare Attending Provider: Miller Doss Primary Care Provider: Jocelyn Wolff Consulting Providers: Lina Welsh Discharge Orders/Prescriptions Prescriptions: New oxycodone 5 mg Tablet 10 mg PO Q4H PRN PRN (Reason: Pain Score 4-10) 7 Days Qty: 20 0RF prednisone 10 mg tablet 20 mg PO BID Qty: 1 0RF Rx Instructions: 20 mg p.o. twice daily x4 days, then 30 mg daily x4 days, then 20 mg daily x4 days, then 10 mg daily thereafter ferrous sulfate 325 mg (65 mg iron) tablet 325 mg PO BID Qty: 1 0RF cyanocobalamin (vitamin B-12) 2,000 mcg tablet 2,000 mcg PO DAILY Qty: 1 0RF Continued levothyroxine 75 MCG tablet 88 mcg PO DAILY Label Comments: Thyroid medication topiramate 100 MG tablet 200 mg PO BID Label Comments: Migraines buspirone 10 MG tablet 10 mg PO TID tizanidine 4 mg tablet 4 mg PO 4X/DAY Label Comments: TAKE 2 TABLETS BY MOUTH EVERY 6 HOURS NEEDED FOR MUSCLE SPASMS trazodone 150 mg tablet 150 mg PO QHS duloxetine 60 mg capsule,delayed release(DR/EC) 60 mg PO DAILY zolpidem [Ambien] 10 MG tablet 10 mg PO QHS PRN PRN (Reason: Insomnia) 7 Days Qty: 5 0RF Discontinued oxycodone-acetaminophen [Percocet] 5-325 mg tablet 1 tab PO Q6H PRN (Reason: pain) 4 Days Qty: 14 0RF prednisone 10 mg tablet 10 mg PO BID Referrals / Follow Up: Jocelyn Wolff PA [Primary Care Provider] - Disposition Disposition (needs filled in before D/C Order can be placed): Shelter Facility
--- NOTE | 2022-06-14 14:44 | NURSING ---
Report called to Michelle in TCU
--- NOTE | 2022-06-14 15:24 | CHAPLAIN ---
Type of Pastoral Visit ___ Initial Visit ___ Follow-up Visit ___ On-call Visit ___ General Patient Visit ___ Spiritual Assessment ___ Family Conference ___ Bereavement ___ Rapid Response ___ Code Blue _x__ Other (describe below) Pastoral Care Referral From ___ Patient ___ Family ___ Nurse ___ Physician ___ Press Operator Apprentice ___ Cloth Layer ___ Other (describe below) Sacrament/Intervention ___ Active listening ___ Anointing ___ Sabianism ___ Bereavement ___ Communion ___ Irma exploration ___ ___ Life review ___ Prayer ___ Reconciliation ___ Sacrament of Sick ___ Supportive presence ___ Wedding ___ Other (describe below) Pastoral Comments patient was occupied and asked for a visit at another time; it is noted that pt will be transferred to TCU and can be seen there at another time
--- NOTE | 2022-06-14 18:36 | DS.PCM_ITS ---
Providers Date of Admission: 06/14/22 Date of Discharge: 06/14/22 Primary Care Physician: RICHELLE Maria Reason For Visit: RA FLARE Diagnosis Discharge Diagnosis (1) Rheumatoid arthritis flare: Status: Acute Code(s): M06.9 - Rheumatoid arthritis, unspecified (2) Hypothyroidism: Status: Chronic Code(s): E03.9 - Hypothyroidism, unspecified (3) Fibromyalgia: Status: Chronic Code(s): M79.7 - Fibromyalgia (4) Iron deficiency anemia: Status: Chronic Code(s): D50.9 - Iron deficiency anemia, unspecified (5) Vitamin B12 deficiency: Status: Chronic Code(s): E53.8 - Deficiency of other specified B group vitamins (6) Chronic migraine: Status: Chronic (7) Chronic depression: Status: Chronic Code(s): F32.A - Depression, unspecified Plan Final diagnosis: #1 flareup of rheumatoid arthritis #2 generalized weakness secondary to #1 #3 iron deficiency anemia #4 vitamin B12 deficiency #5 chronic depression #6 hypothyroidism Medications at Discharge Home Medications levothyroxine 75 mcg tablet 88 mcg PO DAILY thyroid 06/28/13 topiramate 100 mg tablet 200 mg PO BID seizures 06/28/13 buspirone 10 mg tablet 10 mg PO TID mental health 12/18/19 cyanocobalamin (vitamin B-12) 2,000 mcg tablet 2,000 mcg PO DAILY Supplement 06/14/22 duloxetine 60 mg capsule,delayed release 60 mg PO DAILY mental health 06/14/22 ferrous sulfate 325 mg (65 mg iron) tablet 325 mg PO BID Supplement 06/14/22 oxycodone 5 mg tablet 10 mg PO Q4H PRN PRN Pain Score 4-10 7 days #20 tabs 1 prednisone 10 mg tablet 20 mg PO BID Steroid 06/14/22 tizanidine 4 mg tablet 4 mg PO 4X/DAY muscle spasms 06/14/22 trazodone 150 mg tablet 150 mg PO QHS sleep 06/14/22 zolpidem 10 mg tablet (Ambien) 10 mg PO QHS PRN PRN Insomnia 7 days #5 tabs 06/14/22 Hospital Course Operations None Procedures None Summary of Care Provided Minutes Spent on Discharge: 55 Hospital Course: This 56-year-old white female was seen in the emergency room at [facility] with complaints of generalized weakness and inability to p erform ADLs at home. Patient has long history of rheumatoid arthritis, she is not currently receiving any intensive treatment for her rheumatoid disease. Labs obtained in the emergency room were remarkable for hemoglobin of 10.9, chemistry profile was essentially unremarkable except for calcium of 8. Patient was placed in the observation status on PCU, she was seen by PT and OT, she was placed on IV Solu-Medrol. A shelter facility was contacted and agreed to take the patient for short-term rehab services. On 06/14/2022, patient was seen and examined: On examination she appeared older than her stated age, she does not appear to be in any distress. Vital signs as documented. Skin warm and dry and without overt rashes. Neck without JVD, thyroid appears normal, trachea is midline, neck is supple. Lungs clear, normal air movement was noted. Heart exam notable for regular rhythm, normal sounds and absence of murmurs, rubs or gallops. Abdomen unremarkable and without evidence o f organomegaly, masses, or abdominal aortic enlargement, bowel sounds are present in all 4 quadrants, no abdominal tenderness was noted. Extremities nonedematous, no cyanosis was noted, no clubbing was noted, deformities secondary to rheumatoid arthritis were noted to be present. Neuro: Cranial ner ves II through XII are grossly intact, no focal motor deficits were noted, sensation to light touch and pinprick is intact, motor exam 5/5 throughout. Psych: Patient is alert and oriented x3, she does not appear anxious or depressed, she does not appear agitated. On 06/14/2022, patient was seen and examined and felt to be in stable condition for discharge to an extended care facility for short-term rehab services. Weight / BMI Weight Weight: 80.1 kg Body Mass Index (BMI) 32.3 ABG / Lab / Microbiology Data Result Diagrams: 06/14/22 00:40 06/14/22 00:40 Laboratory: Laboratory Results - last 24 hr 06/14/22 00:40: WBC 4.7, RBC 4.97, Hgb 10.9 L, Hct 38.1, MCV 76.7 L, MCH 21.9 L, MCHC 28.6 L, RDW Std Deviation 47.9 H, RDW Coeff of Neal 17.3 H, Plt Count 269, MPV 10.4, Immature Gran % (Auto) 0.400, Neut % (Auto) 68.1, Lymph % (Auto) 25.8, [place]renac % (Auto) 5.3, Eos % (Auto) 0.0, Baso % (Auto) 0.4, Absolute Neuts (auto) 3.2, Absolute Lymphs (auto) 1.22, Nucleated RBC % 0, ESR 13 06/14/22 00:40: Sodium 143, Potassium 3.6, Chloride 115 H, Carbon Dioxide 23.0, Anion Gap 5, BUN 20 H, Creatinine 0.62, Estim Creat Clear Calc 80.13, Est GFR (MDRD) Af Amer 129, Est GFR (MDRD) Non-Af 106, BUN/Creatinine Ratio 32.5 H, Glucose 108 H, Calcium 8.0 L, Magnesium 2.5, C-React Prot Ext Range < 2.90, TSH 2.01 06/14/22 06:30: Iron 15 L, TIBC 396, Iron Saturation 3.8 L, Ferritin 4 L, Folate 6.40 06/14/22 06:30: Vitamin B12 163 L Microbiology: Microbiology 06/14/22 13:20 Nasal Secretion SARS-CoV-2 Antigen (Rapid) - Final Meaningful Use Info Meaningful Use Diagnoses (Choose all that apply): None applicable Discharge Plan Admission Admit Date/Time: 06/14/22 03:49 Primary Reason for Your Visit: Debility, rheumatoid arthritis flare Attending Provider: Miller Doss Primary Care Provider: Jocelyn Wolff Consulting Providers: Lina eWlsh Discharge Orders/Prescriptions Prescriptions: New oxycodone 5 mg Tablet 10 mg PO Q4H PRN PRN (Reason: Pain Score 4-10) 7 Days Qty: 20 0RF Continued levothyroxine 75 MCG tablet 88 mcg PO DAILY Label Comments: Thyroid medication topiramate 100 MG tablet 200 mg PO BID Label Comments: Migraines buspirone 10 MG tablet 10 mg PO TID tizanidine 4 mg tablet 4 mg PO 4X/DAY Label Comments: TAKE 2 TABLETS BY MOUTH EVERY 6 HOURS NEEDED FOR MUSCLE SPASMS trazodone 150 mg tablet 150 mg PO QHS duloxetine 60 mg capsule,delayed release(DR/EC) 60 mg PO DAILY zolpidem [Ambien] 10 MG tablet 10 mg PO QHS PRN PRN (Reason: Insomnia) 7 Days Qty: 5 0RF Discontinued oxycodone-acetaminophen [Percocet] 5-325 mg tablet 1 tab PO Q6H PRN (Reason: pain) 4 Days Qty: 14 0RF prednisone 10 mg tablet 10 mg PO BID No Action prednisone 10 mg tablet 20 mg PO BID Rx Instructions: 20 mg p.o. twice daily x4 days, then 30 mg daily x4 days, then 20 mg daily x4 days, then 10 mg daily thereafter ferrous sulfate 325 mg (65 mg iron) tablet 325 mg PO BID cyanocobalamin (vitamin B-12) 2,000 mcg tablet 2,000 mcg PO DAILY Referrals / Follow Up: Jocelyn Wolff PA [Primary Care Provider] - Disposition Disposition (needs filled in before D/C Order can be placed): Shelter Facility Charges/Coding Visit Charges OBSV E&M: 91575 Observ/hosp same date L3
== END 2022-06-14 13:02 | disposition skilled nursing facility (03) ==
LOC: ED 01:23 → PCU 04:07
PROVIDERS: Admitting Provider Family Medicine; Emergency Provider Emergency Medicine; PCP Physician Assistant; Visit Provider Internal Medicine
DX: M06.9 Rheumatoid arthritis, unspecified (principal); M32.9 Systemic lupus erythematosus, unspecified; D50.9 Iron deficiency anemia, unspecified; E53.8 Deficiency of other specified B group vitamins; M79.7 Fibromyalgia; R53.1 Weakness; F41.9 Anxiety disorder, unspecified; E03.9 Hypothyroidism, unspecified; E83.51 Hypocalcemia; F32.A Depression, unspecified; Z79.899 Other long term (current) drug therapy; Z79.890 Hormone replacement therapy; M19.90 Unspecified osteoarthritis, unspecified site; R03.0 Elevated blood-pressure reading, without diagnosis of hypertension; E66.9 Obesity, unspecified; Z68.32 Body mass index [BMI] 32.0-32.9, adult
CPT/HCPCS: 36415; 80048; 82330; 82607; 82728; 82746; 83540; 83550; 83735; 84443; 85025; 85652; 86140; 87426; 96361; 96372; 96374; 96375; 96376; 97162; 97166; 97802; 99218; 99284; J7030; A4216; G0378; J2405

== ENCOUNTER 2022-06-14 16:45 | Inpatient (IN) | payer MEDICARE, SELFPAY ==
[2022-06-14 16:53] VITALS: BP 123/61; PULSE 73; PULSE 78; RESP 16; TEMP 36.1; O2SAT 98; O2SAT 99; BMI 32.1
--- NOTE | 2022-06-14 17:49 | NURSING ---
pt states she does not want any pneumonia or flu vaccinations.
[2022-06-14] MEDS: oxyCODONE 5 MG Tablet 10 MG PO ×2 (18:04→22:20)
[2022-06-14] MEDS: Topiramate 200 MG Tablet PO (18:46)
--- NOTE | 2022-06-14 20:07 | HP.PCM_ITS ---
HPI - General General Date of Admission: 06/14/22 Date of Service: 06/14/22 Chief Complaint: Here for rehabilitation, strengthening, prior to discharge home with sister. HPI Narrative 06/14/2022 PAULINA MEI, is a 56 Female who presents to [facility] Emergency Department with pain. Rheumatoid Arthritis flare, oral steroids not helpful. Unable to care for self. WBC okay, ESR okay, CRP okay. IV fluids, Dilaudid given. 06/14/2022 Admit to Hospital. Toradol IV, Solu-medrol IV, Gabapentin tid. PT/OT for SNF. 06/14/2022 Admit to TCU with debility, here for rehabilitation, strengthening, prior to discharge home with sister. [facility] Medical History Fibromyalgia Lupus EDWARDS (nonalcoholic steatohepatitis) Neuropathy Osteoarthritis Rheumatoid arthritis Home Medications levothyroxine 75 mcg tablet 88 mcg PO DAILY thyroid 06/28/13 [History Last Taken 05/25/17] topiramate 100 mg tablet 200 mg PO BID seizures 06/28/13 [History Last Taken 05/25/17] buspirone 10 mg tablet 10 mg PO TID mental health 12/18/19 [History Last Taken Unknown] cyanocobalamin (vitamin B-12) 2,000 mcg tablet 2,000 mcg PO DAILY Supplement 06/14/22 [History Last Taken Unknown] duloxetine 60 mg capsule,delayed release 60 mg PO DAILY mental health 06/14/22 [History Last Taken Unknown] ferrous sulfate 325 mg (65 mg iron) tablet 325 mg PO BID Supplement 06/14/22 [History Last Taken Unknown] oxycodone 5 mg tablet 10 mg PO Q4H PRN PRN Pain Score 4-10 7 days #20 tabs 06/14/22 [Rx Last Taken Unknown] prednisone 10 mg tablet 20 mg PO BID Steroid 06/14/22 [History Last Taken Unknown] tizanidine 4 mg tablet 4 mg PO 4X/DAY muscle spasms 06/14/22 [History Last Taken Unknown] trazodone 150 mg tablet 150 mg PO QHS sleep 06/14/22 [History Last Taken Unknown] zolpidem 10 mg tablet (Ambien) 10 mg PO QHS PRN PRN Insomnia 7 days #5 tabs 06/14/22 [Rx Last Taken Unknown] Allergy/AdvReac Type Severity Reaction Status Date / Time hydrocodone bitartrate AdvReac Other Verified 06/14/22 00:08 [From Vicodin] sulfamethoxazole AdvReac Vomiting Verified 06/14/22 00:08 [From Bactrim] trimethoprim [From Bactrim] AdvReac Vomiting Verified 06/14/22 00:08 Family History Mother COPD (chronic obstructive pulmonary disease) Hypertension Father Varicose veins of both lower extremities Surgical History H/O: hysterectomy History of cholecystectomy History of ovarian cystectomy History of Jason-en-Y gastric bypass Social History household members: other details: Lives with her sister who assists in her care. Smoking Status: Never smoker alcohol intake: never substance use type: does not use ROS Constitutional Constitutional: Denies chills, fever(s) or weight gain ENT HEENT: Denies headache(s), nasal congestion or nasal discharge Cardiovascular Cardiovascular: Reports chest pain at rest; Denies chest pain or palpitations Respiratory/Chest Respiratory/Chest: Denies cough, excessive phlegm production or shortness of breath with exertion Gastrointestinal Gastrointestinal: Denies abdominal pain, nausea or vomiting Genitourinary Genitourinary: Denies dysuria Musculoskeletal Musculoskeletal: Denies joint pain or joint swelling Integumentary Integumentary: Denies rash or wounds Neurologic Neurologic: Denies focal weakness, numbness or tingling Psychiatric Psychiatric: Denies anxiety, auditory hallucinations, depression, homicidal ideation or suicidal ideation Vital Signs Vital Signs Vital Signs: 06/14/22 16:53 Temperature 97.0 F L Temperature Source Temporal Pulse Rate 78 Respiratory Rate 16 Blood Pressure 123/61 H Blood Pressure Mean 81 Blood Pressure Source Monitor Blood Pressure Position Semi-Fowlers Blood Pressure Location Right Arm Pulse Ox 99 Oxygen Delivery Method Room Air Weight Weight: 80.2 kg Body Mass Index (BMI) 32.1 Physical Exam Const alert General Appearance: cooperative HEENT normocephalic Eyes PERRL and EOMs intact bilaterally Neck supple, no JVD and no carotid bruits Resp normal respiratory effort, normal air movement and clear to auscultation bilaterally Cardio regular rate and regular rhythm GI normal to inspection, nondistended, normoactive bowel sounds, non-tender and non-distended Extremity normal capillary refill General Extremity: Negative for edema Skin no rashes or lesions noted General Skin Exam: no breakdown Psych affect normal Appearance: appropriate Assessment & Plan Assessment/Plan (1) Debility: (2) Rheumatoid arthritis flare: (3) Chronic depression: (4) Chronic migraine: (5) Fibromyalgia: (6) Hypothyroidism: (7) Insomnia: PLAN: Plan 56 year old female with below past medical history hospitalized for rheumatoid arthritis flare, admitted to TCU with debility, here for rehabilitation, strengthening, prior to discharge home with sister. * Debility - PT/OT. * Pain - Tylenol 1000mg q6h prn pain (1-3), Tramadol 50mg q6h prn pain (4-5), Oxycodone 10mg q4h prn pain (6-10). * Bowel - senna/colace 2 tablets bid, Dulcolax 10mg daily prn, MOM 30ml daily prn. * Adult immunization - Administer pneumonia vaccine, covid19 vaccine, flu vaccine as appropriate. * DVT prophylaxis - Hold, anemia. * Anxiety - Buspar 10mg tid, stable chronic superintendent container terminal use, GDR not recommended. * Vitamin B12 deficiency - B12 2000mcg daily. * Depression - Duloxetine 60mg daily, stable chronic superintendent container terminal use, GDR not recommended. * Iron deficiency anemia - Ferrous sulfate 325mg bidcm. * Hypothyroidism - Levothyroxine 88mcg daily. * Rheumatoid arthritis - Prolonged prednisone taper, then 10mg daily. * Muscle spasm - Tizanidine 4mg 4x/day. * Fibromyalgia - Topamax 200mg bid. * Insomnia - Trazodone 150mg qhs, Zolpidem 10mg qhs prn, stable chronic superintendent container terminal use, GDR not recommended.
[2022-06-14] MEDS: Senna/Docusate Sodium 1 Tablet 2 TABLET PO (22:18)
[2022-06-14] MEDS: busPIRone 5 MG Tablet 10 MG PO (22:19)
[2022-06-14] MEDS: traZODone 50 MG Tablet 150 MG PO (22:19)
[2022-06-14] MEDS: Zolpidem Tartrate 5 MG Tablet 10 MG PO (22:20)
[2022-06-14] MEDS: tiZANidine HCl 2 MG Tablet 4 MG PO (22:20)
[2022-06-15 05:51] LABS: Absolute Lymphocyte Count 2.01 X10^3/uL (0.83-4.51); Basophil# 0.02 X10^3/uL; Basophil% 0.4 % (0-1); Eosinophil# 0.02 X10^3/uL; Eosinophils% 0.4 % (0-5); Hematocrit 33.3 % (37-47); Hemoglobin 9.7 g/dL (12.0-15.0); Lymphocyte # 2.01 X10^3/ul (0.83-4.51); Lymphocyte % 37.2 % (19-41); Mean Corp Hgb Conc 29.1 g/dL (32-36); Mean Corpuscular Hgb 22.5 pg (27.0-32.0); Mean Corpuscular Volume 77.3 fL (81-99); Mean Platelet Vol. 9.9 fl (6.2-12.0); Monocyte# 0.35 X10^3/uL; Monocyte% 6.5 % (0-10); NRBC Flagged by Analyzer 0 % (0-5); Neutrophil # 2.97 X10^3/uL (2.7-7.7); Neutrophil % 54.8 % (47-70); Platelet Count 224 K/mm3 (150-450); RBC Distribution Width CV 17.2 % (11.6-14.6); RBC Distribution Width SD 48.4 fl (35.1-43.9); Red Blood Count 4.31 M/mm3 (4.2-5.4); White Blood Count 5.4 K/mm3 (4.4-11.0)
[2022-06-15] MEDS: Topiramate 200 MG Tablet PO ×2 (06:03→17:26)
[2022-06-15] MEDS: Levothyroxine 88 MCG Tablet PO (06:03)
[2022-06-15] MEDS: tiZANidine HCl 2 MG Tablet 4 MG PO ×4 (06:03→20:30)
[2022-06-15] MEDS: busPIRone 5 MG Tablet 10 MG PO ×3 (06:03→20:31)
[2022-06-15] MEDS: DULoxetine Hcl 60 MG Capsule PO (06:03)
[2022-06-15] MEDS: Senna/Docusate Sodium 1 Tablet 2 TABLET PO ×2 (06:03→17:26)
[2022-06-15] MEDS: Cyanocobalamin 500 MCG Tablet 2000 MCG PO (06:04)
[2022-06-15 06:24] LABS: Anion Gap 6 (5-15); BUN 21 mg/dL (7-18); BUN/Creat Ratio 38.7 RATIO (10-20); Calcium,Total 7.7 mg/dL (8.5-10.1); Chloride 115 mmol/L (98-107); Creatinine, Serum 0.54 mg/dL (0.55-1.02); EST Glomerular Filtration Rate 123 mL/min (>60); Est Glom Filt Rate - Afr Amer 149 mL/min (>60); Glucose 86 mg/dL (74-106); Potassium 3.1 mmol/L (3.5-5.1); Sodium Level 143 mmol/L (136-145)
[2022-06-15] MEDS: Ferrous Sulfate 325 MG Tablet PO ×2 (09:01→17:26)
[2022-06-15] MEDS: predniSONE 20 MG Tablet PO ×2 (09:01→17:26)
[2022-06-15] MEDS: Potassium Chloride Oral Tablet 20 MEQ 40 MEQ PO (09:06)
[2022-06-15] MEDS: oxyCODONE 5 MG Tablet 10 MG PO ×3 (09:06→20:32)
[2022-06-15 10:00] VITALS: PULSE 78; O2SAT 100
[2022-06-15] MEDS: traMADol 50 MG Tablet PO ×2 (10:35→17:28)
[2022-06-15] MEDS: Tuberculin,Purif.prot.deriv. 50 TU/ML Vial 0.1 ML ID (10:37)
[2022-06-15 15:15] VITALS: BP 111/62; PULSE 72; RESP 16; TEMP 37; O2SAT 97
--- NOTE | 2022-06-15 15:30 | CASEMGMT ---
Social Work Met with patient to complete initial assessment. Introduced self and role. Verified contacts. Discussed code status and MOLST form. Pt confirms full code. MOLST placed in Dr foldmontana. Educated to Medicare benefit. Pt confirmed she does not have a secondary insurance. Educated to daily copays days 21-100. Pt is unable to pay privately for copays. Goal DC is by day 21 on 07/04. Pts goal is to return home with sister. SW to continue to follow for DC planning. JOE Moreno PROFESS[employer]
[2022-06-15] MEDS: traZODone 50 MG Tablet 150 MG PO (20:30)
[2022-06-15] MEDS: Acetaminophen 500 MG Tablet 1000 MG PO (20:31)
[2022-06-16] MEDS: oxyCODONE 5 MG Tablet 10 MG PO ×4 (02:06→20:21)
[2022-06-16] MEDS: tiZANidine HCl 2 MG Tablet 4 MG PO ×4 (05:58→20:17)
[2022-06-16] MEDS: DULoxetine Hcl 60 MG Capsule PO (05:59)
[2022-06-16] MEDS: Cyanocobalamin 500 MCG Tablet 2000 MCG PO (05:59)
[2022-06-16] MEDS: Senna/Docusate Sodium 1 Tablet 2 TABLET PO ×2 (05:59→17:34)
[2022-06-16] MEDS: Levothyroxine 88 MCG Tablet PO (05:59)
[2022-06-16] MEDS: busPIRone 5 MG Tablet 10 MG PO ×3 (05:59→20:17)
[2022-06-16] MEDS: Topiramate 200 MG Tablet PO ×2 (06:02→17:34)
[2022-06-16] MEDS: Acetaminophen 500 MG Tablet 1000 MG PO ×3 (06:02→17:33)
[2022-06-16] MEDS: traMADol 50 MG Tablet PO ×3 (06:03→17:33)
[2022-06-16] MEDS: Ferrous Sulfate 325 MG Tablet PO ×2 (08:06→17:34)
[2022-06-16] MEDS: Potassium Chloride Oral Tablet 20 MEQ PO (08:06)
[2022-06-16] MEDS: predniSONE 20 MG Tablet PO ×2 (08:07→17:34)
[2022-06-16 15:03] VITALS: BP 99/64; PULSE 73; RESP 18; TEMP 37.2; O2SAT 98
[2022-06-16] MEDS: traZODone 50 MG Tablet 150 MG PO (20:17)
[2022-06-17] MEDS: traMADol 50 MG Tablet PO ×2 (01:38→10:35)
--- NOTE | 2022-06-17 06:31 | NURSING ---
Spoke w/ pt 1:1. She voiced that she would like to be a full code, orders updated.
[2022-06-17] MEDS: DULoxetine Hcl 60 MG Capsule PO (06:33)
[2022-06-17] MEDS: Topiramate 200 MG Tablet PO ×2 (06:33→17:47)
[2022-06-17] MEDS: Levothyroxine 88 MCG Tablet PO (06:33)
[2022-06-17] MEDS: Senna/Docusate Sodium 1 Tablet 2 TABLET PO (06:33)
[2022-06-17] MEDS: busPIRone 5 MG Tablet 10 MG PO ×3 (06:33→22:18)
[2022-06-17] MEDS: Cyanocobalamin 500 MCG Tablet 2000 MCG PO (06:34)
[2022-06-17] MEDS: tiZANidine HCl 2 MG Tablet 4 MG PO ×4 (06:34→22:18)
[2022-06-17 07:22] LABS: Anion Gap 6 (5-15); BUN 14 mg/dL (7-18); BUN/Creat Ratio 32.1 RATIO (10-20); Calcium,Total 7.8 mg/dL (8.5-10.1); Chloride 115 mmol/L (98-107); Creatinine, Serum 0.44 mg/dL (0.55-1.02); EST Glomerular Filtration Rate 159 mL/min (>60); Est Glom Filt Rate - Afr Amer 192 mL/min (>60); Estimated Creatinine Clearance 112.91 ml/min; Glucose 77 mg/dL (74-106); Potassium 3.4 mmol/L (3.5-5.1); Sodium Level 144 mmol/L (136-145)
[2022-06-17] MEDS: oxyCODONE 5 MG Tablet 10 MG PO ×4 (08:11→22:23)
[2022-06-17] MEDS: predniSONE 20 MG Tablet PO ×2 (08:12→17:46)
[2022-06-17] MEDS: Potassium Chloride Oral Tablet 20 MEQ PO (08:12)
[2022-06-17] MEDS: Ferrous Sulfate 325 MG Tablet PO ×2 (08:12→17:46)
[2022-06-17] MEDS: Acetaminophen 500 MG Tablet 1000 MG PO (10:36)
[2022-06-17] MEDS: Gabapentin 300 MG Capsule PO ×2 (14:46→22:18)
[2022-06-17 14:58] VITALS: BP 116/75; PULSE 66; RESP 16; TEMP 37; O2SAT 97
[2022-06-17 22:00] VITALS: PULSE 81; RESP 20; O2SAT 97
[2022-06-17] MEDS: traZODone 50 MG Tablet 150 MG PO (22:18)
[2022-06-18] MEDS: Gabapentin 300 MG Capsule PO ×3 (06:13→20:46)
[2022-06-18] MEDS: Cyanocobalamin 500 MCG Tablet 2000 MCG PO (06:13)
[2022-06-18] MEDS: tiZANidine HCl 2 MG Tablet 4 MG PO ×4 (06:13→20:45)
[2022-06-18] MEDS: DULoxetine Hcl 60 MG Capsule PO (06:13)
[2022-06-18] MEDS: Senna/Docusate Sodium 1 Tablet 2 TABLET PO (06:13)
[2022-06-18] MEDS: busPIRone 5 MG Tablet 10 MG PO ×3 (06:13→20:45)
[2022-06-18] MEDS: Levothyroxine 88 MCG Tablet PO (06:13)
[2022-06-18] MEDS: Topiramate 200 MG Tablet PO ×2 (06:13→16:45)
[2022-06-18] MEDS: Potassium Chloride Oral Tablet 20 MEQ PO (08:27)
[2022-06-18] MEDS: predniSONE 20 MG Tablet PO ×2 (08:27→16:53)
[2022-06-18] MEDS: Ferrous Sulfate 325 MG Tablet PO ×2 (08:27→16:42)
[2022-06-18] MEDS: oxyCODONE 5 MG Tablet 10 MG PO ×3 (08:28→16:41)
[2022-06-18] MEDS: Acetaminophen 500 MG Tablet 1000 MG PO ×2 (10:10→20:45)
--- NOTE | 2022-06-18 10:55 | PHA.CONS_ITS ---
TCU RX Drug Regimen Review Subjective: TCU Admission. 56 YOF presented to the ER with pain. Admitted to the hospital with RA flare. Admitted to TCU with debility for strengthening and rehabilitation. Objective: Allergies hydrocodone bitartrate [From Vicodin] Adverse Reaction (Verified 06/14/22 00:08) Other sulfamethoxazole [From Bactrim] Adverse Reaction (Verified 06/14/22 00:08) Vomiting trimethoprim [From Bactrim] Adverse Reaction (Verified 06/14/22 00:08) Vomiting Current Medications Generic Name Dose Route Start Last Admin Trade Name Freq PRN Reason Stop Dose Admin Acetaminophen 1,000 mg 06/14/22 20:22 06/18/22 10:10 Acetaminophen 500 Mg Tablet PO 1,000 mg Q6H PRN PRN Administration Pain Score 1-3 Bisacodyl 10 mg 06/14/22 20: Bisacodyl 5 Mg Tablet PO X1 PRN Constipation Buspirone HCl 10 mg 06/14/22 22:00 06/18/22 06:13 Buspirone 5 Mg Tablet PO 10 mg TID DADA Administration Cyanocobalamin 2,000 mcg 06/15/22 06:00 06/18/22 06:13 Cyanocobalamin 500 Mcg Tablet PO 2,000 mcg DAILY DADA Administration Duloxetine HCl 60 mg 06/15/22 06:00 06/18/22 06:13 Duloxetine Hcl 60 Mg Capsule PO 60 mg DAILY DADA Administration Ferrous Sulfate 325 mg 06/15/22 08:00 06/18/22 08:27 Ferrous Sulfate 325 Mg Tablet PO 325 mg BIDCM DADA Administration Gabapentin 300 mg 06/17/22 14:11 06/18/22 06:13 Gabapentin 300 Mg Capsule PO 300 mg Q8 DADA Administration Levothyroxine Sodium 88 mcg 06/15/22 06:00 06/18/22 06:13 Levothyroxine 88 Mcg Tablet PO 88 mcg DAILY DADA Administration Magnesium Hydroxide 30 ml 06/14/22 20: Magnesium Hydroxide 30 Ml Udc PO X1 PRN Constipation Oxycodone HCl 10 mg 06/14/22 20:24 06/18/22 08:28 Oxycodone 5 Mg Tablet PO 10 mg Q4H PRN PRN Administration Pain Score 6-10 Potassium Chloride 20 meq 06/16/22 08:00 06/18/22 08:27 Potassium Chloride Oral Tablet 20 Meq PO 20 meq DAILYCM DADA Administration Prednisone 20 mg 06/15/22 08:00 06/18/22 08:27 Prednisone 20 Mg Tablet PO 06/18/22 17:01 20 mg BIDCM DADA Administration Prednisone 30 mg 06/19/22 08:00 Prednisone 10 Mg [facility] mg 06/23/22 08:00 Prednisone 10 Mg Tablet PO 06/26/22 [facility]nisone 10 mg 06/27/22 08:00 [facility] Senna/Docusate Sodium 2 tablet 06/14/22 20:30 06/18/22 06:13 Senna/Docusate Sodium 1 Tablet PO 2 tablet BID [facility] Administration Sodium Chloride 10 - 40 ml 06/14/22 17:46 0.9% Saline Lock 10 Ml Syringe IV UD PRN SALINE FLUSH Tizanidine HCl 4 mg 06/14/22 22:00 06/18/22 06:13 Tizanidine Hcl 2 Mg Tablet PO 4 mg 4X/DAY DADA Administration Topiramate 200 mg 06/14/22 18:00 06/18/22 06:13 Topiramate 200 Mg Tablet PO 200 mg BID DADA Administration Tramadol HCl 50 mg 06/14/22 20:22 06/17/22 10:35 Tramadol 50 Mg Tablet PO 50 mg Q6H PRN PRN Administration Pain Score 4-5 Trazodone HCl 150 mg 06/14/22 22:00 06/17/22 22:18 Trazodone 50 Mg Tablet PO 150 mg QHS DADA Administration Tuberculin PPD 0.1 ml 06/22/22 10:00 Tuberculin,Purif.Prot.Deriv. 50 Tu/Ml Vial ID 06/22/22 10:01 X1 ONE Zolpidem Tartrate 10 mg 06/14/22 17:08 06/14/22 22:20 Zolpidem Tartrate 5 Mg Tablet PO 10 mg QHS PRN PRN Administration Insomnia Problem List (Last Reviewed 06/14/22 @ 20:[address] Franc Gardiner MD) Insomnia (Acute) Debility (Acute) Chronic depression (Chronic) Chronic migraine (Chronic) Hypothyroidism (Chronic) Fibromyalgia (Chronic) Rheumatoid arthritis flare (Acute) Vital Signs Temp Pulse Resp BP Pulse Ox O2 Del Method 98.6 F 81 20 H 116/75 97 Room Air 06/17/22 14:58 06/17/22 22:00 06/17/22 22:00 06/17/22 14:58 06/17/22 22:00 06/18/22 10:00 Oxygen Delivery Method Room Air Weight: 80.2 kg Body Mass Index (BMI) 32.1 Sodium 144 mmol/L (136-145) 06/17/22 06:15 Potassium 3.4 mmol/L (3.5-5.1) L 06/17/22 06:15 Chloride 115 mmol/L (98-107) H 06/17/22 06:15 Carbon Dioxide 23.0 mmol/L (21.0-32.0) 06/17/22 06:15 Anion Gap 6 (5-15) 06/17/22 06:15 BUN 14 mg/dL (7-18) 06/17/22 06:15 Creatinine 0.44 mg/dL (0.55-1.02) L 06/17/22 06:15 Est GFR (MDRD) Af Amer 192 mL/min (>60) 06/17/22 06:15 Est GFR (MDRD) Non-Af 159 mL/min (>60) 06/17/22 06:15 BUN/Creatinine Ratio 32.1 RATIO (10-20) H 06/17/22 06:15 Glucose 77 mg/dL (74-106) 06/17/22 06:15 Assessment/Plan: 1. Pain: acetaminophen 1000mg PO Q6H PRN pain (1-3), tramadol 50mg PO Q6H PRN pain (4-5) and oxycodone 10mg PO Q4H PRN pain (6-10). Please continue to monitor for increase pain, PRN usage, constipation, respiratory depression and renal function. Resident has used 6 doses of acetaminophen (generalized/hand/foot/back pain of 5,8,10), 7 doses of tramadol (generalized/back/hip pain of 8-10) and 13 doses of oxycodone (generalized/hip/back/thigh/foot pain of 7-10). Resident has not had a documented bowel movement. 2. Bowel: senna/docusate 2T PO BID, bisacodyl 10mg PO daily PRN constipation and MOM 30ML PO daily PRN constipation. Resident has not had a documented bowel movement and has not had any PRN doses. Please continue to monitor for constipation and PRN usage. 3. Rheumatoid arthritis: gabapentin 300mg PO Q8 and prednisone 20mg PO BIDCM navdeep 06/18, then 30mg PO DAILYCM 06/19-06/22, then 20mg PO DAILYCM 06/23-06/26, then 10mg PO DAILYCM thereafter. Please continue to monitor for S/S of infection, hunger, confusion, renal function, glucose (last 77mg/dL) and upset stomach. 4. Iron deficiency anemia: ferrous sulfate 325mg PO BIDCM. Please continue to monitor hemoglobin (last 9.7g/dL), dark stools and constipation. 5. Hypothyroidism: levothyroxine 88mcg PO daily. Please continue to monitor TSH (last 06/14/22) and S/S of hypo/hyperthyroidism. 6. Muscle spasm: tizanidine 4mg PO 4x/day. Please continue to monitor for muscle spams, hypotension and asthenias. 7. Fibromyalgia: topiramate 200mg PO BID. Please continue to monitor for pain, dizziness, drowsiness, and paresthesias. 8. Vitamin B12 deficiency: cyanocobalamin 2000mcg PO daily. Please continue to monitor vitamin B12 levels (last 06/14/22). 9. Hypokalemia: potassium chloride 20mEq PO DAILYCM. Please continue to monitor potassium levels (last 3.4mmol/L). Assessment/Plan for indications treated with psychotropic medications: 1. Anxiety: buspirone 10mg PO TID. Please see physician note regarding GDR. Please continue to monitor for dizziness, insomnia (on trazodone and zolpidem) and drowsiness. 2. Depression: duloxetine 60mg PO daily. Please see physician note regarding GDR. Please continue to monitor for suicidal ideation (black box) and renal function. 3. Insomnia: trazodone 150mg PO QHS and zolpidem 10mg PO QHS PRN insomnia. Please see physician note regarding GDR. Please continue to monitor for suicidal ideation (black box), complex sleep-related behaviors (such as eating/making phone calls while not fully awake, black box warning), PRN usage (1 dose so far), and dizziness. Medical chart and medication regimen reviewed. The following medication irregularities or issues were identified: none Date of Note:: 06/18/22
--- NOTE | 2022-06-18 11:25 | NURSING ---
Resident educated on the COVID 19 Vaccine and she does not want to receive it.
--- NOTE | 2022-06-18 12:44 | NURSING ---
Manager Flight Note; Activity Asst: complete
[2022-06-18 13:38] VITALS: BP 128/85; PULSE 78; RESP 16; TEMP 36.4; O2SAT 95
[2022-06-18] MEDS: traMADol 50 MG Tablet PO ×2 (14:13→20:45)
--- NOTE | 2022-06-18 16:22 | CHAPLAIN ---
Type of Pastoral Visit _x__ Initial Visit ___ Follow-up Visit ___ On-call Visit ___ General Patient Visit ___ Spiritual Assessment ___ Family Conference ___ Bereavement ___ Rapid Response ___ Code Blue ___ Other (describe below) Pastoral Care Referral From _x__ Patient ___ Family ___ Nurse ___ Physician ___ Epic Kaleidoscope Analyst ___ Brake Machine Operator ___ Other (describe below) Sacrament/Intervention _x__ Active listening ___ Anointing ___ Moravian ___ Bereavement ___ Communion _x__ Irma exploration ___ ___ Life review _x__ Prayer ___ Reconciliation ___ Sacrament of Sick _x__ Supportive presence ___ Wedding ___ Other (describe below) Pastoral Comments patient states that she received communion yesterday and was so pleased with the visit and the spiritual support from [facility]; pt talks about her life long dealing with many health issues and how that has taught her lessons and how that has strengthened her irma; pt says that she has supportive friends and family; pt welcomes prayer and more visits
[2022-06-18] MEDS: traZODone 50 MG Tablet 150 MG PO (20:45)
[2022-06-19] MEDS: Topiramate 200 MG Tablet PO ×2 (04:11→17:07)
[2022-06-19] MEDS: tiZANidine HCl 2 MG Tablet 4 MG PO ×4 (04:11→21:25)
[2022-06-19] MEDS: Gabapentin 300 MG Capsule PO ×2 (04:11→13:43)
[2022-06-19] MEDS: oxyCODONE 5 MG Tablet 10 MG PO ×3 (04:11→15:39)
[2022-06-19] MEDS: Levothyroxine 88 MCG Tablet PO (04:12)
[2022-06-19] MEDS: DULoxetine Hcl 60 MG Capsule PO ×2 (04:12→18:38)
[2022-06-19] MEDS: Senna/Docusate Sodium 1 Tablet 2 TABLET PO ×2 (04:12→17:07)
[2022-06-19] MEDS: busPIRone 5 MG Tablet 10 MG PO ×3 (04:12→21:24)
[2022-06-19] MEDS: Cyanocobalamin 500 MCG Tablet 2000 MCG PO (04:12)
[2022-06-19 06:01] LABS: Anion Gap 4 (5-15); BUN 18 mg/dL (7-18); BUN/Creat Ratio 43.7 RATIO (10-20); Calcium,Total 7.7 mg/dL (8.5-10.1); Chloride 114 mmol/L (98-107); Creatinine, Serum 0.41 mg/dL (0.55-1.02); EST Glomerular Filtration Rate 169 mL/min (>60); Est Glom Filt Rate - Afr Amer 205 mL/min (>60); Estimated Creatinine Clearance 121.18 ml/min; Glucose 95 mg/dL (74-106); Potassium 3.3 mmol/L (3.5-5.1); Sodium Level 142 mmol/L (136-145)
[2022-06-19] MEDS: Ferrous Sulfate 325 MG Tablet PO ×2 (08:15→17:07)
[2022-06-19] MEDS: predniSONE 10 MG Tablet 30 MG PO (08:15)
[2022-06-19] MEDS: Potassium Chloride Oral Tablet 20 MEQ PO ×2 (08:15→17:07)
[2022-06-19] MEDS: traMADol 50 MG Tablet PO (11:37)
[2022-06-19 13:47] VITALS: BP 101/66; PULSE 81; RESP 16; TEMP 36.2; O2SAT 98
[2022-06-19] MEDS: Gabapentin 600 MG Tablet PO ×2 (18:37→21:24)
[2022-06-19] MEDS: traZODone 50 MG Tablet 150 MG PO (21:24)
[2022-06-19] MEDS: Pregabalin 75 MG Capsule PO (21:24)
[2022-06-19 21:30] VITALS: PULSE 80; RESP 14; O2SAT 97
[2022-06-20] MEDS: oxyCODONE 5 MG Tablet 10 MG PO (03:21)
[2022-06-20] MEDS: busPIRone 5 MG Tablet 10 MG PO ×3 (05:31→21:47)
[2022-06-20] MEDS: DULoxetine Hcl 60 MG Capsule PO ×2 (05:31→17:27)
[2022-06-20] MEDS: Senna/Docusate Sodium 1 Tablet 2 TABLET PO ×2 (05:32→17:29)
[2022-06-20] MEDS: Topiramate 200 MG Tablet PO ×2 (05:32→17:29)
[2022-06-20] MEDS: Cyanocobalamin 500 MCG Tablet 2000 MCG PO (05:32)
[2022-06-20] MEDS: Levothyroxine 88 MCG Tablet PO (05:32)
[2022-06-20] MEDS: tiZANidine HCl 2 MG Tablet 4 MG PO ×4 (05:32→21:47)
[2022-06-20] MEDS: Pregabalin 75 MG Capsule PO (05:39)
[2022-06-20] MEDS: Gabapentin 600 MG Tablet PO (05:39)
[2022-06-20] MEDS: Ferrous Sulfate 325 MG Tablet PO ×2 (08:17→17:27)
[2022-06-20] MEDS: predniSONE 10 MG Tablet 30 MG PO (08:17)
[2022-06-20] MEDS: Potassium Chloride Oral Tablet 20 MEQ PO ×2 (08:17→17:27)
[2022-06-20] MEDS: oxyCODONE 5 MG Tablet PO ×2 (08:26→19:57)
[2022-06-20] MEDS: traMADol 50 MG Tablet PO (09:44)
--- NOTE | 2022-06-20 10:03 | CASEMGMT ---
Social Work BIMS and PHQ9 interviews completed on this date for MDS assessment. BIMS score 1415, PHQ9 score 09/28. BINA Butterfield
--- NOTE | 2022-06-20 10:33 | CASEMGMT ---
Social Work IDT met with patient and sister via conference call for care plan meeting. Discussed patient's progress in PT/OT/SN. Educated to Medicare benefit. Confirmed day 21 is 07/04 and goal DC. Offered sister therapy training prior to DC. Pt used [facility] prior and would like to use again at DC. Sister requesting w/c at DC if pt qualifies. SW to order needs at DC. Will continue to follow. Terra Howard, RESEARCH AND DEVELOPMENT ENGINEER PARTS EXPEDITER
[2022-06-20] MEDS: Gabapentin 600 MG Tablet 1200 MG PO ×2 (11:59→17:27)
[2022-06-20] MEDS: Pregabalin 75 MG Capsule 150 MG PO ×2 (13:09→21:45)
[2022-06-20 13:34] VITALS: BP 99/65; PULSE 93; RESP 18; TEMP 36.7; O2SAT 98
[2022-06-20] MEDS: Zolpidem Tartrate 5 MG Tablet 10 MG PO (21:53)
[2022-06-20 22:00] VITALS: PULSE 78; RESP 16; O2SAT 97
[2022-06-21] MEDS: oxyCODONE 5 MG Tablet PO ×4 (04:02→21:32)
[2022-06-21 04:45] VITALS: BP 135/78; PULSE 74; RESP 16; TEMP 36.7
--- NOTE | 2022-06-21 05:11 | NURSING ---
Addendum entered by Vicki Btaeman 06/21/22 07:33: @0545: education provided regarding current pain medication and potential interaction per Dr. Gardiner order, pt. verbalizes understanding. Pt. reports never seeing a pain specialist in the past. Pt. reports pain 10/10 to back and all over and requests PRN Tramadol at this time, administered as ordered per pt. request. Involuntary movements to BLE and BUE observed intermittently. No distress observed or reported. Denies further requests. Call light in reach. Original Note: Patient activates call light reports muscle spasms all over, patient immedialtly assessed. A&Ox4 to person/place/time/situation. Smiling. Conversing with this nurse approprietly. Patient observed with abnormal movements at times, shaking shoulders, reports feeling shaky all over. VSS. Afebrile. Dr. Gardiner paged notified of above: New verbal orders received: 1. Stop lyrica 2. Decrease Gabapentin to 600mg TID 3.Decrease Cymbalta to 60mg once daily 4. Educate patient on effects of pain medications and possible interactions All orders repeated back to Dr. Gardiner.
[2022-06-21] MEDS: Cyanocobalamin 500 MCG Tablet 2000 MCG PO (05:46)
[2022-06-21] MEDS: traMADol 50 MG Tablet PO ×2 (05:46→15:13)
[2022-06-21] MEDS: tiZANidine HCl 2 MG Tablet 4 MG PO ×4 (05:47→21:34)
[2022-06-21] MEDS: DULoxetine Hcl 60 MG Capsule PO (05:48)
[2022-06-21] MEDS: busPIRone 5 MG Tablet 10 MG PO ×3 (05:48→21:34)
[2022-06-21] MEDS: Topiramate 200 MG Tablet PO ×2 (05:48→16:48)
[2022-06-21] MEDS: Levothyroxine 88 MCG Tablet PO (05:48)
[2022-06-21] MEDS: Senna/Docusate Sodium 1 Tablet 2 TABLET PO ×2 (05:50→16:48)
[2022-06-21 06:19] LABS: Anion Gap 6 (5-15); BUN 18 mg/dL (7-18); BUN/Creat Ratio 38.5 RATIO (10-20); Calcium,Total 7.8 mg/dL (8.5-10.1); Chloride 112 mmol/L (98-107); Creatinine, Serum 0.47 mg/dL (0.55-1.02); EST Glomerular Filtration Rate 146 mL/min (>60); Est Glom Filt Rate - Afr Amer 177 mL/min (>60); Estimated Creatinine Clearance 105.71 ml/min; Glucose 79 mg/dL (74-106); Potassium 3.6 mmol/L (3.5-5.1); Sodium Level 142 mmol/L (136-145)
[2022-06-21] MEDS: predniSONE 10 MG Tablet 30 MG PO (08:02)
[2022-06-21] MEDS: Ferrous Sulfate 325 MG Tablet PO ×2 (08:02→16:48)
[2022-06-21] MEDS: Potassium Chloride Oral Tablet 20 MEQ PO ×2 (08:02→16:48)
[2022-06-21] MEDS: Acetaminophen 500 MG Tablet 1000 MG PO ×2 (08:03→20:34)
[2022-06-21] MEDS: Gabapentin 600 MG Tablet PO ×3 (08:07→16:48)
--- NOTE | 2022-06-21 08:53 | NURSING ---
Legal Support Specialist Note; MDS Complete
[2022-06-21 13:42] VITALS: BP 96/51; PULSE 82; RESP 16; TEMP 37.1; O2SAT 97
[2022-06-21 20:37] VITALS: PULSE 69; RESP 14; O2SAT 98
[2022-06-21] MEDS: traZODone 50 MG Tablet 150 MG PO (21:34)
[2022-06-22] MEDS: oxyCODONE 5 MG Tablet PO ×4 (04:38→21:28)
[2022-06-22] MEDS: tiZANidine HCl 2 MG Tablet 4 MG PO ×4 (04:39→21:28)
[2022-06-22] MEDS: DULoxetine Hcl 60 MG Capsule PO (04:39)
[2022-06-22] MEDS: busPIRone 5 MG Tablet 10 MG PO ×3 (04:39→21:27)
[2022-06-22] MEDS: Topiramate 200 MG Tablet PO ×2 (04:39→17:24)
[2022-06-22] MEDS: Senna/Docusate Sodium 1 Tablet 2 TABLET PO ×2 (04:39→17:23)
[2022-06-22] MEDS: Cyanocobalamin 500 MCG Tablet 2000 MCG PO (04:39)
[2022-06-22] MEDS: Levothyroxine 88 MCG Tablet PO (04:40)
[2022-06-22 05:56] LABS: Absolute Lymphocyte Count 2.01 X10^3/uL (0.83-4.51); Absolute Neutrophil Count 2.2 X10^3/uL (2.0-7.7); Basophil# 0.02 X10^3/uL; Basophil% 0.4 % (0-1); Eosinophil# 0.04 X10^3/uL; Eosinophils% 0.9 % (0-5); Hematocrit 33.2 % (37-47); Hemoglobin 9.3 g/dL (12.0-15.0); Lymphocyte # 2.01 X10^3/ul (0.83-4.51); Mean Corpuscular Hgb 22.4 pg (27.0-32.0); Mean Corpuscular Volume 79.8 fL (81-99); Mean Platelet Vol. 9.9 fl (6.2-12.0); Monocyte# 0.34 X10^3/uL; Monocyte% 7.3 % (0-10); NRBC Flagged by Analyzer 0 % (0-5); Neutrophil # 2.23 X10^3/uL (2.7-7.7); Neutrophil % 47.8 % (47-70); Platelet Count 231 K/mm3 (150-450); RBC Distribution Width CV 19.5 % (11.6-14.6); RBC Distribution Width SD 53.1 fl (35.1-43.9); Red Blood Count 4.16 M/mm3 (4.2-5.4); White Blood Count 4.7 K/mm3 (4.4-11.0)
[2022-06-22 06:22] LABS: Anion Gap 6 (5-15); BUN 15 mg/dL (7-18); BUN/Creat Ratio 31.3 RATIO (10-20); Calcium,Total 7.9 mg/dL (8.5-10.1); Chloride 115 mmol/L (98-107); Creatinine, Serum 0.48 mg/dL (0.55-1.02); EST Glomerular Filtration Rate 142 mL/min (>60); Est Glom Filt Rate - Afr Amer 172 mL/min (>60); Estimated Creatinine Clearance 103.51 ml/min; Glucose 90 mg/dL (74-106); Potassium 3.3 mmol/L (3.5-5.1); Sodium Level 143 mmol/L (136-145)
[2022-06-22] MEDS: Gabapentin 600 MG Tablet PO ×3 (08:14→17:24)
[2022-06-22] MEDS: Acetaminophen 500 MG Tablet 1000 MG PO ×2 (08:15→17:23)
[2022-06-22] MEDS: traMADol 50 MG Tablet PO ×2 (08:15→17:24)
[2022-06-22] MEDS: Ferrous Sulfate 325 MG Tablet PO ×2 (08:15→17:23)
[2022-06-22] MEDS: predniSONE 10 MG Tablet 30 MG PO (08:15)
[2022-06-22] MEDS: Potassium Chloride Oral Tablet 20 MEQ PO ×3 (08:18→17:23)
[2022-06-22] MEDS: Tuberculin,Purif.prot.deriv. 50 TU/ML Vial 0.1 ML ID (09:33)
[2022-06-22 16:00] VITALS: BP 103/65; PULSE 78; RESP 16; TEMP 35.8; O2SAT 96
[2022-06-22] MEDS: traZODone 50 MG Tablet 150 MG PO (21:28)
[2022-06-23] MEDS: Acetaminophen 500 MG Tablet 1000 MG PO ×2 (02:06→08:35)
[2022-06-23] MEDS: traMADol 50 MG Tablet PO ×3 (02:06→21:03)
[2022-06-23] MEDS: Cyanocobalamin 500 MCG Tablet 2000 MCG PO (05:13)
[2022-06-23] MEDS: tiZANidine HCl 2 MG Tablet 4 MG PO ×4 (05:14→20:56)
[2022-06-23] MEDS: Levothyroxine 88 MCG Tablet PO (05:14)
[2022-06-23] MEDS: Topiramate 200 MG Tablet PO ×2 (05:14→17:49)
[2022-06-23] MEDS: busPIRone 5 MG Tablet 10 MG PO ×3 (05:14→20:55)
[2022-06-23] MEDS: DULoxetine Hcl 60 MG Capsule PO (05:14)
[2022-06-23] MEDS: Senna/Docusate Sodium 1 Tablet 2 TABLET PO ×2 (05:14→17:49)
[2022-06-23] MEDS: predniSONE 10 MG Tablet 20 MG PO (08:36)
[2022-06-23] MEDS: Gabapentin 600 MG Tablet PO ×3 (08:36→17:49)
[2022-06-23] MEDS: oxyCODONE 5 MG Tablet PO ×2 (08:37→13:34)
[2022-06-23] MEDS: Potassium Chloride Oral Tablet 20 MEQ PO ×3 (08:37→17:49)
[2022-06-23] MEDS: Ferrous Sulfate 325 MG Tablet PO ×2 (08:37→17:49)
[2022-06-23 15:05] VITALS: BP 109/68; PULSE 75; RESP 16; TEMP 36.3; O2SAT 97
[2022-06-23] MEDS: traZODone 50 MG Tablet 150 MG PO (20:56)
[2022-06-24] MEDS: traMADol 50 MG Tablet PO ×2 (03:15→20:37)
[2022-06-24] MEDS: tiZANidine HCl 2 MG Tablet 4 MG PO ×4 (05:47→20:37)
[2022-06-24] MEDS: Cyanocobalamin 500 MCG Tablet 2000 MCG PO (05:47)
[2022-06-24] MEDS: Topiramate 200 MG Tablet PO ×2 (05:47→17:42)
[2022-06-24] MEDS: DULoxetine Hcl 60 MG Capsule PO (05:47)
[2022-06-24] MEDS: Levothyroxine 88 MCG Tablet PO (05:47)
[2022-06-24] MEDS: busPIRone 5 MG Tablet 10 MG PO ×3 (05:47→20:36)
[2022-06-24 07:57] LABS: Anion Gap 6 (5-15); BUN 16 mg/dL (7-18); BUN/Creat Ratio 31.1 RATIO (10-20); Calcium,Total 7.8 mg/dL (8.5-10.1); Chloride 113 mmol/L (98-107); Creatinine, Serum 0.51 mg/dL (0.55-1.02); EST Glomerular Filtration Rate 131 mL/min (>60); Est Glom Filt Rate - Afr Amer 159 mL/min (>60); Estimated Creatinine Clearance 97.42 ml/min; Glucose 81 mg/dL (74-106); Potassium 3.6 mmol/L (3.5-5.1); Sodium Level 143 mmol/L (136-145)
[2022-06-24] MEDS: oxyCODONE 5 MG Tablet PO ×2 (08:00→14:11)
[2022-06-24] MEDS: predniSONE 10 MG Tablet 20 MG PO (08:01)
[2022-06-24] MEDS: Ferrous Sulfate 325 MG Tablet PO ×2 (08:01→17:42)
[2022-06-24] MEDS: Potassium Chloride Oral Tablet 20 MEQ PO ×3 (08:01→17:42)
[2022-06-24] MEDS: Gabapentin 600 MG Tablet PO ×3 (08:01→17:42)
[2022-06-24] MEDS: Acetaminophen 500 MG Tablet 1000 MG PO (14:11)
[2022-06-24 15:34] VITALS: BP 103/55; PULSE 77; RESP 16; TEMP 35.6; O2SAT 98
[2022-06-24] MEDS: Senna/Docusate Sodium 1 Tablet 2 TABLET PO (17:43)
[2022-06-24 20:00] VITALS: PULSE 71; RESP 16; O2SAT 98
[2022-06-24] MEDS: traZODone 50 MG Tablet 150 MG PO (20:37)
[2022-06-25] MEDS: Acetaminophen 500 MG Tablet 1000 MG PO ×3 (02:07→17:17)
[2022-06-25] MEDS: oxyCODONE 5 MG Tablet PO ×4 (02:07→17:17)
[2022-06-25] MEDS: busPIRone 5 MG Tablet 10 MG PO ×3 (05:36→22:26)
[2022-06-25] MEDS: Topiramate 200 MG Tablet PO ×2 (05:36→17:20)
[2022-06-25] MEDS: tiZANidine HCl 2 MG Tablet 4 MG PO ×4 (05:36→22:26)
[2022-06-25] MEDS: DULoxetine Hcl 60 MG Capsule PO (05:36)
[2022-06-25] MEDS: Levothyroxine 88 MCG Tablet PO (05:36)
[2022-06-25] MEDS: Senna/Docusate Sodium 1 Tablet 2 TABLET PO ×2 (05:36→17:16)
[2022-06-25] MEDS: Cyanocobalamin 500 MCG Tablet 2000 MCG PO (05:37)
[2022-06-25] MEDS: Potassium Chloride Oral Tablet 20 MEQ PO ×3 (08:07→17:16)
[2022-06-25] MEDS: Gabapentin 600 MG Tablet PO ×3 (08:07→17:16)
[2022-06-25] MEDS: predniSONE 10 MG Tablet 20 MG PO (08:08)
[2022-06-25] MEDS: Ferrous Sulfate 325 MG Tablet PO ×2 (08:08→17:15)
[2022-06-25] MEDS: traMADol 50 MG Tablet PO (09:16)
[2022-06-25 10:00] VITALS: PULSE 65; RESP 16; O2SAT 96
[2022-06-25 14:23] VITALS: BP 102/51; PULSE 75; RESP 16; TEMP 36.3; O2SAT 98
[2022-06-25] MEDS: oxyCODONE 5 MG Tablet 10 MG PO (22:25)
[2022-06-25] MEDS: traZODone 50 MG Tablet 150 MG PO (22:26)
[2022-06-26] MEDS: oxyCODONE 5 MG Tablet 10 MG PO ×3 (05:08→15:15)
[2022-06-26] MEDS: DULoxetine Hcl 60 MG Capsule PO (05:09)
[2022-06-26] MEDS: Levothyroxine 88 MCG Tablet PO (05:09)
[2022-06-26] MEDS: tiZANidine HCl 2 MG Tablet 4 MG PO ×4 (05:09→21:33)
[2022-06-26] MEDS: Topiramate 200 MG Tablet PO ×2 (05:09→17:21)
[2022-06-26] MEDS: Cyanocobalamin 500 MCG Tablet 2000 MCG PO (05:09)
[2022-06-26] MEDS: busPIRone 5 MG Tablet 10 MG PO ×3 (05:09→21:33)
[2022-06-26] MEDS: Senna/Docusate Sodium 1 Tablet 2 TABLET PO ×2 (05:10→17:21)
[2022-06-26] MEDS: predniSONE 10 MG Tablet 20 MG PO (08:02)
[2022-06-26] MEDS: Ferrous Sulfate 325 MG Tablet PO ×2 (08:02→17:21)
[2022-06-26] MEDS: Gabapentin 600 MG Tablet PO ×3 (08:02→17:21)
[2022-06-26] MEDS: Potassium Chloride Oral Tablet 20 MEQ PO ×3 (08:02→17:21)
--- NOTE | 2022-06-26 10:29 | CASEMGMT ---
Social Work Spoke with pt about DC plans. Pt and IDT agreeable to set DC for 07/04. Encouraged to have sister schedule therapy training prior to DC. Pt to notify sister. Pt requesting [facility]. SW phoned referral to [facility] for PT/OT/SN. Pt requesting w/c at DC. Faxed referral to [facility]. Sister to transport. Plan: DC home with sister 07/04, [facility] PT/OT/SN, W/C JOE Moreno
[2022-06-26 14:02] VITALS: BP 113/58; PULSE 78; RESP 16; TEMP 36.8; O2SAT 98
[2022-06-26 15:10] VITALS: BP 102/54; PULSE 77; RESP 18; O2SAT 97
--- NOTE | 2022-06-26 19:44 | DS.PCM_ITS ---
Providers Date of Admission: 06/14/22 Primary Care Physician: RICHELLE Maria Reason For Visit: R A FLARE Diagnosis Discharge Diagnosis (1) Debility: Status: Acute Code(s): R53.81 - Other malaise (2) Rheumatoid arthritis flare: Status: Acute Code(s): M06.9 - Rheumatoid arthritis, unspecified (3) Chronic depression: Status: Chronic Code(s): F32.A - Depression, unspecified (4) Chronic migraine: Status: Chronic (5) Fibromyalgia: Status: Chronic Code(s): M79.7 - Fibromyalgia (6) Hypothyroidism: Status: Chronic Code(s): E03.9 - Hypothyroidism, unspecified (7) Insomnia: Status: Acute Code(s): G47.00 - Insomnia, unspecified Plan 56 year old female with below past medical history hospitalized for rheumatoid arthritis flare, admitted to TCU with debility, here for rehabilitation, strengthening, prior to discharge home with sister. * Debility - PT/OT. * Pain - Tylenol 1000mg q6h prn pain (1-3), Tramadol 50mg q6h prn pain (4-5), Oxycodone 10mg q4h prn pain (6-10). * Bowel - senna/colace 2 tablets bid, Dulcolax 10mg daily prn, MOM 30ml daily prn. * Adult immunization - Administer pneumonia vaccine, covid19 vaccine, flu vaccine as appropriate. * DVT prophylaxis - Hold, anemia. * Anxiety - Buspar 10mg tid, stable chronic intermediate project manager use, GDR not recommended. * Vitamin B12 deficiency - B12 2000mcg daily. * Depression - Duloxetine 60mg daily, stable chronic intermediate project manager use, GDR not recommended. * Iron deficiency anemia - Ferrous sulfate 325mg bidcm. * Hypothyroidism - Levothyroxine 88mcg daily. * Rheumatoid arthritis - Prolonged prednisone taper, then 10mg daily. * Muscle spasm - Tizanidine 4mg 4x/day. * Fibromyalgia - Topamax 200mg bid. * Insomnia - Trazodone 150mg qhs, Zolpidem 10mg qhs prn, stable chronic intermediate use, GDR not recommended. Medications at Discharge Home Medications levothyroxine 75 mcg tablet 88 mcg PO DAILY thyroid 06/28/13 topiramate 100 mg tablet 200 mg PO BID seizures 06/28/13 buspirone 10 mg tablet 10 mg PO TID mental health 12/18/19 cyanocobalamin (vitamin B-12) 2,000 mcg tablet 2,000 mcg PO DAILY Supplement 06/14/22 duloxetine 60 mg capsule,delayed release 60 mg PO DAILY mental health 06/14/22 ferrous sulfate 325 mg (65 mg iron) tablet 325 mg PO BID Supplement 06/14/22 trazodone 150 mg tablet 150 mg PO QHS sleep 06/14/22 zolpidem 10 mg tablet (Ambien) 10 mg PO QHS PRN PRN Insomnia 7 days #5 tabs 06/14/22 acetaminophen 500 mg tablet 1,000 mg PO Q6H PRN PRN Pain Score 1-3 #0 tabs 06/26/22 duloxetine 60 mg capsule,delayed release 60 mg PO DAILY #0 caps 06/26/22 gabapentin 600 mg tablet 600 mg PO TIDCM 30 days #90 tabs 06/26/22 oxycodone 5 mg tablet 10 mg PO Q4H PRN PRN Pain Score 4-10 3 days #36 tabs 06/26/22 potassium chloride 20 mEq tablet,extended release(part/cryst) (Klor-Con M) 20 meq PO TIDCM 30 days #90 tabs 06/26/22 simethicone 80 mg chewable tablet 80 mg PO TIDPC PRN Gas 30 days #90 tabs 06/26/22 tizanidine 4 mg tablet 4 mg PO 4X/DAY muscle spasms 30 days #120 tabs 06/26/22 tramadol 50 mg tablet 50 mg PO Q6H PRN PRN Pain Score 4-5 3 days #12 tabs 06/26/22 Hospital Course Operations None Procedures None Summary of Care Provided Minutes Spent on Discharge: 35 Hospital Course: 56 year old female with below past medical history hospitalized for rheumatoid arthritis flare, admitted to TCU with debility, here for rehabilitation, strengthening, prior to discharge home with sister. I think her pain is from polyneuropathy rather than RA flare. Discharge home with sister 07/04/2022, [facility] PT/OT/SN, Wheelchair. Physical Exam Const alert General Appearance: cooperative HEENT normocephalic Eyes PERRL and EOMs intact bilaterally Neck supple, no JVD and no carotid bruits Resp normal respiratory effort, normal air movement and clear to auscultation bilaterally Cardio regular rate and regular rhythm GI normal to inspection, nondistended, normoactive bowel sounds, non-tender and non-distended Extremity normal capillary refill General Extremity: Negative for edema Skin no rashes or lesions noted General Skin Exam: no breakdown Psych affect normal Appearance: appropriate Weight / BMI Weight Weight: 81.601 kg Body Mass Index (BMI) 32.1 ABG / Lab / Microbiology Data Result Diagrams: 06/22/22 05:23 06/24/22 07:15 D/C Instructions Discharge Diet: No restrictions Discharge Activity: Return to Normal Activity, May Shower and Use Walker Weight Bearing Status: Weight bearing as tolerated Call your doctor if you observe: Fever of 101 or Higher, Inability to urinate, Inability to have a bowel movement, Shortness of breath, Dizziness, Fainting spells, Swelling in the ankles, Chest pain and Uncontrolled pain Additional Instructions: Discharge home with sister 07/04/2022, [facility] PT/OT/SN, Wheelchair. Meaningful Use Info Meaningful Use Diagnoses (Choose all that apply): None applicable Discharge Plan Admission Admit Date/Time: 06/14/22 16:45 Primary Reason for Your Visit: Debility. Attending Provider: Franc Gardiner Chi Primary Care Provider: Jocelyn Wolff Instructions Additional Instructions / Restrictions: Discharge home with sister 07/04/2022, [facility] PT/OT/SN, Wheelchair. Discharge Orders/Prescriptions Prescriptions: New gabapentin 600 mg Tablet 600 mg PO TIDCM 30 Days Qty: 90 0RF tramadol 50 mg Tablet 50 mg PO Q6H PRN PRN (Reason: Pain Score 4-5) 3 Days Qty: 12 0RF acetaminophen 500 mg Tablet 1,000 mg PO Q6H PRN PRN (Reason: Pain Score 1-3) Qty: 0 0RF potassium chloride [Klor-Con M20] 20 mEq Tablet,Er Particles/Crystals 20 meq PO TIDCM 30 Days Qty: 90 0RF simethicone 80 mg Tablet,Chewable 80 mg PO TIDPC PRN (Reason: Gas) 30 Days Qty: 90 0RF duloxetine 60 mg Capsule,Delayed Release(Dr/Ec) 60 mg PO DAILY Qty: 0 0RF Continued levothyroxine 75 MCG tablet 88 mcg PO DAILY Label Comments: Thyroid medication topiramate 100 MG tablet 200 mg PO BID Label Comments: Migraines buspirone 10 MG tablet 10 mg PO TID trazodone 150 mg tablet 150 mg PO QHS duloxetine 60 mg capsule,delayed release(DR/EC) 60 mg PO DAILY zolpidem [Ambien] 10 MG tablet 10 mg PO QHS PRN PRN (Reason: Insomnia) 7 Days Qty: 5 0RF ferrous sulfate 325 mg (65 mg iron) tablet 325 mg PO BID cyanocobalamin (vitamin B-12) 2,000 mcg tablet 2,000 mcg PO DAILY tizanidine 4 mg tablet 4 mg PO 4X/DAY 30 Days Qty: 120 0RF Label Comments: TAKE 2 TABLETS BY MOUTH EVERY 6 HOURS NEEDED FOR MUSCLE SPASMS oxycodone 5 mg Tablet 10 mg PO Q4H PRN PRN (Reason: Pain Score 4-10) 3 Days Qty: 36 0RF Discontinued prednisone 10 mg tablet 20 mg PO BID Rx Instructions: 20 mg p.o. twice daily x4 days, then 30 mg daily x4 days, then 20 mg daily x4 days, then 10 mg daily thereafter Referrals / Follow Up: Jocelyn Wolff PA [Primary Care Provider] - Disposition Disposition (needs filled in before D/C Order can be placed): Home Health Service
[2022-06-26] MEDS: traZODone 50 MG Tablet 150 MG PO (21:33)
[2022-06-26 22:00] VITALS: PULSE 71; RESP 16; O2SAT 98
[2022-06-27] MEDS: oxyCODONE 5 MG Tablet 10 MG PO ×4 (02:06→19:31)
[2022-06-27] MEDS: DULoxetine Hcl 60 MG Capsule PO (05:19)
[2022-06-27] MEDS: tiZANidine HCl 2 MG Tablet 4 MG PO ×4 (05:19→19:32)
[2022-06-27] MEDS: Levothyroxine 88 MCG Tablet PO (05:19)
[2022-06-27] MEDS: Senna/Docusate Sodium 1 Tablet 2 TABLET PO ×2 (05:19→17:14)
[2022-06-27] MEDS: Cyanocobalamin 500 MCG Tablet 2000 MCG PO (05:19)
[2022-06-27] MEDS: busPIRone 5 MG Tablet 10 MG PO ×3 (05:19→19:33)
[2022-06-27] MEDS: Topiramate 200 MG Tablet PO ×2 (05:19→17:16)
[2022-06-27] MEDS: Ferrous Sulfate 325 MG Tablet PO ×2 (08:27→17:16)
[2022-06-27] MEDS: Gabapentin 600 MG Tablet PO ×3 (08:27→17:16)
[2022-06-27] MEDS: predniSONE 10 MG Tablet PO (08:28)
[2022-06-27] MEDS: Potassium Chloride Oral Tablet 20 MEQ PO ×3 (08:28→17:15)
--- NOTE | 2022-06-27 12:50 | MDS.RN ---
Information for the mds was obtained from review of the clinical record, interview of resident, staff, and direct observation of resident's care.
[2022-06-27 14:15] VITALS: BP 106/57; PULSE 69; RESP 18; TEMP 36.1; O2SAT 98
[2022-06-27] MEDS: traMADol 50 MG Tablet PO (17:15)
[2022-06-27] MEDS: Acetaminophen 500 MG Tablet 1000 MG PO (19:32)
[2022-06-27] MEDS: traZODone 50 MG Tablet 150 MG PO (19:33)
[2022-06-28] MEDS: traMADol 50 MG Tablet PO (05:35)
[2022-06-28] MEDS: Cyanocobalamin 500 MCG Tablet 2000 MCG PO (05:36)
[2022-06-28] MEDS: tiZANidine HCl 2 MG Tablet 4 MG PO ×3 (05:36→17:11)
[2022-06-28] MEDS: DULoxetine Hcl 60 MG Capsule PO (05:36)
[2022-06-28] MEDS: busPIRone 5 MG Tablet 10 MG PO ×3 (05:37→21:28)
[2022-06-28] MEDS: Levothyroxine 88 MCG Tablet PO (05:37)
[2022-06-28] MEDS: Senna/Docusate Sodium 1 Tablet 2 TABLET PO ×2 (05:37→17:11)
[2022-06-28] MEDS: Topiramate 200 MG Tablet PO ×2 (05:37→17:11)
[2022-06-28] MEDS: Gabapentin 600 MG Tablet PO ×3 (08:08→17:11)
[2022-06-28] MEDS: predniSONE 10 MG Tablet PO (08:08)
[2022-06-28] MEDS: Ferrous Sulfate 325 MG Tablet PO ×2 (08:08→17:11)
[2022-06-28] MEDS: Potassium Chloride Oral Tablet 20 MEQ PO ×3 (08:08→17:11)
[2022-06-28] MEDS: oxyCODONE 5 MG Tablet 10 MG PO ×3 (08:44→19:37)
[2022-06-28] MEDS: Acetaminophen 500 MG Tablet 1000 MG PO (11:05)
--- NOTE | 2022-06-28 11:53 | CASEMGMT ---
Social Work Notified by nursing that pt is in extreme pain after therapy sessions and recommending DC earlier. SW spoke with pt to inquire about pain and DC date. Pt agreed therapy is not helping, it is hurting, and would be agreeable to sooner DC. SW left message with sister to discuss. Will await return call. Terra Howard, JOE MARTINEZW
[2022-06-28 16:00] VITALS: BP 107/72; PULSE 77; RESP 16; TEMP 36.5; O2SAT 97
[2022-06-28] MEDS: Nystatin Powder 15gm Bottle 1 APPLIC TOPICAL (17:11)
[2022-06-28 20:00] VITALS: PULSE 72; RESP 16; O2SAT 99
[2022-06-28] MEDS: traZODone 50 MG Tablet 150 MG PO (21:28)
[2022-06-29] MEDS: oxyCODONE 5 MG Tablet 10 MG PO ×3 (04:48→18:54)
[2022-06-29] MEDS: Cyanocobalamin 500 MCG Tablet 2000 MCG PO (04:49)
[2022-06-29] MEDS: Topiramate 200 MG Tablet PO ×2 (04:49→18:49)
[2022-06-29] MEDS: busPIRone 5 MG Tablet 10 MG PO ×3 (04:49→21:32)
[2022-06-29] MEDS: DULoxetine Hcl 60 MG Capsule PO (04:49)
[2022-06-29] MEDS: Senna/Docusate Sodium 1 Tablet 2 TABLET PO ×2 (04:49→18:48)
[2022-06-29] MEDS: Levothyroxine 88 MCG Tablet PO (04:49)
[2022-06-29 05:42] LABS: Absolute Lymphocyte Count 1.85 X10^3/uL (0.83-4.51); Basophil# 0.02 X10^3/uL; Basophil% 0.4 % (0-1); Eosinophils% 1.9 % (0-5); Hematocrit 33.6 % (37-47); Hemoglobin 9.9 g/dL (12.0-15.0); Lymphocyte # 1.85 X10^3/ul (0.83-4.51); Lymphocyte % 34.5 % (19-41); Mean Corp Hgb Conc 29.5 g/dL (32-36); Mean Corpuscular Hgb 23.8 pg (27.0-32.0); Mean Corpuscular Volume 80.8 fL (81-99); Mean Platelet Vol. 9.3 fl (6.2-12.0); Monocyte# 0.35 X10^3/uL; Monocyte% 6.5 % (0-10); NRBC Flagged by Analyzer 0 % (0-5); Neutrophil # 3.03 X10^3/uL (2.7-7.7); Neutrophil % 56.3 % (47-70); POSITIVE MORPHOLOGY YES; Platelet Count 190 K/mm3 (150-450); RBC Distribution Width CV 22.6 % (11.6-14.6); RBC Distribution Width SD 64.5 fl (35.1-43.9); Red Blood Count 4.16 M/mm3 (4.2-5.4); White Blood Count 5.4 K/mm3 (4.4-11.0)
[2022-06-29 05:48] LABS: Differential Indicated SCAN CRITERIA MET
[2022-06-29 06:03] LABS: Anion Gap 5 (5-15); BUN 17 mg/dL (7-18); BUN/Creat Ratio 28.3 RATIO (10-20); Calcium,Total 7.8 mg/dL (8.5-10.1); Chloride 113 mmol/L (98-107); EST Glomerular Filtration Rate 110 mL/min (>60); Est Glom Filt Rate - Afr Amer 133 mL/min (>60); Glucose 86 mg/dL (74-106); Potassium 3.5 mmol/L (3.5-5.1); Sodium Level 142 mmol/L (136-145)
[2022-06-29 06:17] LABS: Anisocytosis 1+; Differential Comment SCANNED; Microcytosis 1+
[2022-06-29] MEDS: Potassium Chloride Oral Tablet 20 MEQ PO ×3 (08:11→18:47)
[2022-06-29] MEDS: Ferrous Sulfate 325 MG Tablet PO ×2 (08:12→18:47)
[2022-06-29] MEDS: traMADol 50 MG Tablet PO ×3 (08:16→21:29)
[2022-06-29] MEDS: Gabapentin 600 MG Tablet PO ×3 (08:17→18:54)
[2022-06-29] MEDS: predniSONE 10 MG Tablet PO (08:25)
--- NOTE | 2022-06-29 09:41 | CASEMGMT ---
Social Work Contacted sister again - left voicemail. Spoke with pt. Pt spoke with sister and are electing to DC 06/30. IDT agreeable. Updated [facility] and SOC will be 07/02. Plan: DC 06/30 Terra Howard, DRAWER UPFITTER HUMAN SERVICES CASE MANAGER
[2022-06-29] MEDS: Nystatin Powder 15gm Bottle 1 APPLIC TOPICAL ×2 (11:07→21:34)
[2022-06-29] MEDS: tiZANidine HCl 2 MG Tablet 8 MG PO ×2 (14:40→21:32)
[2022-06-29 16:00] VITALS: BP 129/77; PULSE 81; RESP 16; TEMP 36.7; O2SAT 98
--- NOTE | 2022-06-29 16:34 | CASEMGMT ---
Social Work BIMS () and PHQ-9 () completed for MDS assessment. Terra Howard, SALES SUPPORT TECHNICIAN BUILDING CONSTRUCTION SUPERVISOR
[2022-06-29 19:45] VITALS: PULSE 77; RESP 14; O2SAT 97
[2022-06-29] MEDS: traZODone 50 MG Tablet 150 MG PO (21:29)
[2022-06-30] MEDS: oxyCODONE 5 MG Tablet 10 MG PO ×2 (06:39→10:49)
[2022-06-30] MEDS: busPIRone 5 MG Tablet 10 MG PO (06:40)
[2022-06-30] MEDS: Levothyroxine 88 MCG Tablet PO (06:40)
[2022-06-30] MEDS: Senna/Docusate Sodium 1 Tablet 2 TABLET PO (06:40)
[2022-06-30] MEDS: Topiramate 200 MG Tablet PO (06:40)
[2022-06-30] MEDS: DULoxetine Hcl 60 MG Capsule PO (06:40)
[2022-06-30] MEDS: Cyanocobalamin 500 MCG Tablet 2000 MCG PO (06:40)
[2022-06-30] MEDS: Gabapentin 600 MG Tablet PO ×2 (08:00→11:46)
[2022-06-30] MEDS: Potassium Chloride Oral Tablet 20 MEQ PO ×2 (08:01→11:46)
[2022-06-30] MEDS: Ferrous Sulfate 325 MG Tablet PO (08:01)
[2022-06-30] MEDS: tiZANidine HCl 2 MG Tablet 8 MG PO (08:02)
[2022-06-30] MEDS: predniSONE 10 MG Tablet PO (08:02)
[2022-06-30 09:36] VITALS: PULSE 68; RESP 16; O2SAT 96
[2022-06-30] MEDS: Nystatin Powder 15gm Bottle 1 APPLIC TOPICAL (10:55)
[2022-06-30 11:26] VITALS: BP 98/56; PULSE 68; RESP 16; TEMP 36.6; O2SAT 94
== END 2022-06-30 11:50 | disposition home health service (06) | DRG 547 ==
PROVIDERS: Admitting Provider Family Medicine Geriatric Medicine; PCP Physician Assistant; Visit Provider Family Medicine Geriatric Medicine
DX: M06.9 Rheumatoid arthritis, unspecified (principal); D50.9 Iron deficiency anemia, unspecified; M32.9 Systemic lupus erythematosus, unspecified; K75.81 Nonalcoholic steatohepatitis (NASH); M79.7 Fibromyalgia; E53.8 Deficiency of other specified B group vitamins; E03.9 Hypothyroidism, unspecified; M19.90 Unspecified osteoarthritis, unspecified site; E87.6 Hypokalemia; F41.9 Anxiety disorder, unspecified; Z79.899 Other long term (current) drug therapy; Z79.890 Hormone replacement therapy; Z79.52 Long term (current) use of systemic steroids; F32.A Depression, unspecified; G47.00 Insomnia, unspecified
CPT/HCPCS: 36415; 80048; 85025; 97110; 97116; 97162; 97166; 97530; 97535; 97802

== ENCOUNTER 2022-08-04 07:54 | Emergency (ER) | payer MEDICARE, SELFPAY ==
[2022-08-04 07:57] VITALS: BP 141/87; PULSE 91; RESP 16; TEMP 36.4; O2SAT 100; BMI 32.9
[2022-08-04] MEDS: Ketorolac 60 MG/2 ML Vial IM (08:36)
--- NOTE | 2022-08-04 09:31 | EX.ED.DYSGE1 ---
HPI History of Present Illness Chief Complaint: Other, Pain/Inj Informant: patient Narrative Narrative: 56-year-old female with a history of rheumatoid arthritis fibromyalgia chronic depression chronic migraine on chronic narcotics presenting to the emergency department complaining of bilateral leg pain. She states that her oxycodone was ineffective at controlling her pain last night. She was hospitalized a bout a month ago for the same pain and spent 3 weeks in the TCU. She states that she was diagnosed with something in the nerves of her legs. From review of the chart it looks like polyneuropathy. [facility] Medical History Fibromyalgia Hypocalcemia Lupus EDWARDS (nonalcoholic steatohepatitis) Neuropathy Osteoarthritis Rheumatoid arthritis Home Medications levothyroxine 75 mcg tablet 88 mcg PO DAILY thyroid 06/28/13 [History Last Taken 05/25/17] topiramate 100 mg tablet 200 mg PO BID seizures 06/28/13 [History Last Taken 05/25/17] buspirone 10 mg tablet 10 mg PO TID mental health 12/18/19 [History Last Taken Unknown] cyanocobalamin (vitamin B-12) 2,000 mcg tablet 2,000 mcg PO DAILY Supplement 06/14/22 [History Last Taken Unknown] duloxetine 60 mg capsule,delayed release 60 mg PO DAILY mental health 06/14/22 [History Last Taken Unknown] ferrous sulfate 325 mg (65 mg iron) tablet 325 mg PO BID Supplement 06/14/22 [History Last Taken Unknown] trazodone 150 mg tablet 150 mg PO QHS sleep 06/14/22 [History Last Taken Unknown] zolpidem 10 mg tablet (Ambien) 10 mg PO QHS PRN PRN Insomnia 7 days #5 tabs 06/14/22 [Rx Last Taken Unknown] acetaminophen 500 mg tablet 1,000 mg PO Q6H PRN PRN Pain Score 1-3 #0 tabs 06/26/22 [Rx Last Taken Unknown] duloxetine 60 mg capsule,delayed release 60 mg PO DAILY #0 caps 06/26/22 [Rx Last Taken Unknown] gabapentin 600 mg tablet 600 mg PO TIDCM 30 days #90 tabs 06/26/22 [Rx Last Taken Unknown] oxycodone 5 mg tablet 10 mg PO Q4H PRN PRN Pain Score 4-10 3 days #36 tabs 06/26/22 [Rx Last Taken Unknown] potassium chloride 20 mEq tablet,extended release(part/cryst) (Klor-Con M) 20 meq PO TIDCM 30 days #90 tabs 06/26/22 [Rx Last Taken Unknown] simethicone 80 mg chewable tablet 80 mg PO TIDPC PRN Gas 30 days #90 tabs 06/26/22 [Rx Last Taken Unknown] tizanidine 4 mg tablet 4 mg PO 4X/DAY muscle spasms 30 days #120 tabs 06/26/22 [Rx Last Taken Unknown] tramadol 50 mg tablet 50 mg PO Q6H PRN PRN Pain Score 4-5 3 days #12 tabs 06/26/22 [Rx Last Taken Unknown] Allergy/AdvReac Type Severity Reaction Status Date / Time hydrocodone bitartrate AdvReac Vomiting Verified 08/04/22 07:57 [From Vicodin] sulfamethoxazole AdvReac Vomiting Verified 08/04/22 07:57 [From Bactrim] trimethoprim [From Bactrim] AdvReac Vomiting Verified 08/04/22 07:57 Family History Mother COPD (chronic obstructive pulmonary disease) Hypertension Father Varicose veins of both lower extremities Surgical History H/O: hysterectomy History of cholecystectomy History of ovarian cystectomy History of Jason-en-Y gastric bypass Social History household members: other details: Lives with her sister who assists in her care. Smoking Status: Never smoker alcohol intake: never substance use type: does not use ROS ROS ED Constitutional Constitutional ED: Denies chills or weight loss Eyes Eyes: Denies change in vision or diplopia ENT ENT ED: Denies ear pain, rhinorrhea or sore throat Cardiovascular Cardiovascular: Denies chest pain, orthopnea, palpitations or racing heartbeat Respiratory/Chest Respiratory/Chest: Denies cough, dyspnea or orthopnea Gastrointestinal Gastrointestinal: Denies abdominal pain, diarrhea, nausea or vomiting Genitourinary Genitourinary ED: Denies dysuria, hematuria or urinary frequency Musculoskeletal Musculoskeletal: Reports arthralgias and other Details: Bilateral leg pain ; Denies myalgias Integumentary Denies abscess or rash Neurologic Neurologic: Denies headache(s) or weakness Psychiatric Psychiatric: Denies anxiety, depression, suicidal ideation or suicidal thoughts Endocrine Endocrinology: Denies polydipsia, polyphagia or polyuria Allergic/Immunologic Allergic/Immunologic ED: Denies mouth swelling, tongue swelling or urticaria EXAM Physical Exam Const Vital Signs: 08/04/22 07:57 Temperature 97.6 F L Temperature Source Temporal Pulse Rate 91 Respiratory Rate 16 Blood Pressure 141/87 H Blood Pressure Mean 105 Pulse Ox 100 Oxygen Delivery Method Room Air Positive well nourished and well developed General Appearance ED: well developed HEENT Reports normocephalic, head/scalp atraumatic and moist mucous membranes Eyes PERRL and EOMs intact bilaterally Neck no lymphadenopathy, supple and no JVD Resp normal respiratory effort and clear to auscultation bilaterally Cardio regular rate, regular rhythm and no murmurs GI normal to inspection, nondistended, normoactive bowel sounds and non-tender Palpation: soft Back/Spine no CVA tenderness and normal ROM Extremity normal to inspection General Extremety ED: Negative for edema General Extremity: Negative for edema Neuro oriented x3 and CN's II-XII intact bilaterally Sensorium / Orientation: alert Motor Exam: strength 5/5 throughout Psych mental status grossly normal Mood & Affect: Negative for depressed or tearful Skin no rashes or lesions noted and no wounds MDM MDM MDM Narrative Medical decision making narrative: Patient received a dose of Toradol she tells me that was ineffective so now her narcotics at home are not effective anti-inflammatories or not effective. She then tells me that the oxycodone normally is effective at controlling her pain. She also tells me she has never had Dilaudid or morphine but I do see that she received some in the emergency department her last visit and it was also ineffective. We will put her on tapering dose of prednisone advised follow-up with primary care Discharge Plan Triage Chief Complaint: Other, Pain/Inj ED Provider: Jerson Wen Dx/Rx/DC Orders Prescriptions: No Action levothyroxine 75 MCG tablet 88 mcg PO DAILY Label Comments: Thyroid medication topiramate 100 MG tablet 200 mg PO BID Label Comments: Migraines buspirone 10 MG tablet 10 mg PO TID trazodone 150 mg tablet 150 mg PO QHS duloxetine 60 mg capsule,delayed release(DR/EC) 60 mg PO DAILY zolpidem [Ambien] 10 MG tablet 10 mg PO QHS PRN PRN (Reason: Insomnia) 7 Days Qty: 5 0RF ferrous sulfate 325 mg (65 mg iron) tablet 325 mg PO BID cyanocobalamin (vitamin B-12) 2,000 mcg tablet 2,000 mcg PO DAILY gabapentin 600 mg Tablet 600 mg PO TIDCM 30 Days Qty: 90 0RF tramadol 50 mg Tablet 50 mg PO Q6H PRN PRN (Reason: Pain Score 4-5) 3 Days Qty: 12 0RF acetaminophen 500 mg Tablet 1,000 mg PO Q6H PRN PRN (Reason: Pain Score 1-3) Qty: 0 0RF potassium chloride [Klor-Con M20] 20 mEq Tablet,Er Particles/Crystals 20 meq PO TIDCM 30 Days Qty: 90 0RF simethicone 80 mg Tablet,Chewable 80 mg PO TIDPC PRN (Reason: Gas) 30 Days Qty: 90 0RF duloxetine 60 mg Capsule,Delayed Release(Dr/Ec) 60 mg PO DAILY Qty: 0 0RF tizanidine 4 mg tablet 4 mg PO 4X/DAY 30 Days Qty: 120 0RF Label Comments: TAKE 2 TABLETS BY MOUTH EVERY 6 HOURS NEEDED FOR MUSCLE SPASMS oxycodone 5 mg Tablet 10 mg PO Q4H PRN PRN (Reason: Pain Score 4-10) 3 Days Qty: 36 0RF Primary Care Provider: Jocelyn Wolff Referrals: Jocelyn Wolff PA [Primary Care Provider] -
[2022-08-04 09:47] VITALS: RESP 16
== END 2022-08-04 09:49 | disposition home or self-care (01) ==
PROVIDERS: Emergency Provider Emergency Medicine; PCP Physician Assistant; Visit Provider Emergency Medicine
DX: M79.604 Pain in right leg (principal); M06.9 Rheumatoid arthritis, unspecified; F32.A Depression, unspecified; G43.909 Migraine, unspecified, not intractable, without status migrainosus; M79.7 Fibromyalgia; M79.605 Pain in left leg
CPT/HCPCS: 96372; 99282

== ENCOUNTER 2022-11-01 02:59 | Emergency (ER) | payer MEDICARE, SELFPAY ==
[2022-11-01 03:00] VITALS: BP 126/80; PULSE 88; RESP 19; TEMP 36.4; O2SAT 99; BMI 35.9
[2022-11-01] MEDS: Ondansetron 4 MG/2 ML Vial IV (03:46)
[2022-11-01] MEDS: LORazepam 2 MG/ML Syringe 0.5 MG IV (03:46)
[2022-11-01] MEDS: dexAMETHasone 10 MG/ML Vial IV (03:46)
[2022-11-01] MEDS: HYDROmorphone 1 MG/ML Syringe IV (03:47)
--- NOTE | 2022-11-01 04:43 | EX.ED.DYSGE1 ---
HPI History of Present Illness Chief Complaint: Other, Pain/Inj Narrative Narrative: Patient is a 57-year-old female with past medical history of osteoarthritis rheumatoid arthritis fibromyalgia and lupus. She states she has chronic pain secondary to these issues for which she takes gabapentin and Percocet for daily. She states over the past 2 days she has had increased urination without dysuria. She reports that she is continue to take her medications as directed but she feels like her pain has worsened. She states there is no localized area of the pain but just that her whole body is screaming. She denies any excessive activity or trauma prior to the pain beginning and she denies any fevers or chills and states that occasionally this will happen. Secondary to the intractable pain she presents for evaluation [facility] Medical History Fibromyalgia Hypocalcemia Lupus EDWARDS (nonalcoholic steatohepatitis) Neuropathy Osteoarthritis Rheumatoid arthritis Home Medications levothyroxine 75 mcg tablet 88 mcg PO DAILY thyroid 06/28/13 [History Last Taken 05/25/17] topiramate 100 mg tablet 200 mg PO BID seizures 06/28/13 [History Last Taken 05/25/17] buspirone 10 mg tablet 10 mg PO TID mental health 12/18/19 [History Last Taken Unknown] cyanocobalamin (vitamin B-12) 2,000 mcg tablet 2,000 mcg PO DAILY Supplement 06/14/22 [History Last Taken Unknown] duloxetine 60 mg capsule,delayed release 60 mg PO DAILY mental health 06/14/22 [History Last Taken Unknown] ferrous sulfate 325 mg (65 mg iron) tablet 325 mg PO BID Supplement 06/14/22 [History Last Taken Unknown] trazodone 150 mg tablet 150 mg PO QHS sleep 06/14/22 [History Last Taken Unknown] zolpidem 10 mg tablet (Ambien) 10 mg PO QHS PRN PRN Insomnia 7 days #5 tabs 06/14/22 [Rx Last Taken Unknown] acetaminophen 500 mg tablet 1,000 mg PO Q6H PRN PRN Pain Score 1-3 #0 tabs 06/26/22 [Rx Last Taken Unknown] duloxetine 60 mg capsule,delayed release 60 mg PO DAILY #0 caps 06/26/22 [Rx Last Taken Unknown] gabapentin 600 mg tablet 600 mg PO TIDCM 30 days #90 tabs 06/26/22 [Rx Last Taken Unknown] oxycodone 5 mg tablet 10 mg PO Q4H PRN PRN Pain Score 4-10 3 days #36 tabs 06/26/22 [Rx Last Taken Unknown] potassium chloride 20 mEq tablet,extended release(part/cryst) (Klor-Con M) 20 meq PO TIDCM 30 days #90 tabs 06/26/22 [Rx Last Taken Unknown] simethicone 80 mg chewable tablet 80 mg PO TIDPC PRN Gas 30 days #90 tabs 06/26/22 [Rx Last Taken Unknown] tizanidine 4 mg tablet 4 mg PO 4X/DAY muscle spasms 30 days #120 tabs 06/26/22 [Rx Last Taken Unknown] tramadol 50 mg tablet 50 mg PO Q6H PRN PRN Pain Score 4-5 3 days #12 tabs 06/26/22 [Rx Last Taken Unknown] ketorolac 10 mg tablet 10 mg PO Q8H PRN pain 5 days #15 tabs 08/04/22 [Rx Last Taken Unknown] prednisone 20 mg tablet See Rx Instructions .Route .COMPLEX #24 TABLETS 08/04/22 [Rx Last Taken Unknown] cephalexin 500 mg capsule 500 mg PO TID 7 days #21 caps 11/01/22 [Rx Last Taken Unknown] prednisone 10 mg tablet 10 mg PO DAILY #63 tabs 11/01/22 [Rx Last Taken Unknown] Allergy/AdvReac Type Severity Reaction Status Date / Time hydrocodone bitartrate AdvReac Vomiting Verified 11/01/22 03:00 [From Vicodin] sulfamethoxazole AdvReac Vomiting Verified 11/01/22 03:00 [From Bactrim] trimethoprim [From Bactrim] AdvReac Vomiting Verified 11/01/22 03:00 Family History Mother COPD (chronic obstructive pulmonary disease) Hypertension Father Varicose veins of both lower extremities Surgical History H/O: hysterectomy History of cholecystectomy History of ovarian cystectomy History of Jason-en-Y gastric bypass Social History household members: other details: Lives with her sister who assists in her care. Smoking Status: Never smoker alcohol intake: never substance use type: does not use ROS ROS ED Constitutional Constitutional ED: Denies chills or fever(s) ENT ENT ED: Denies sore throat Cardiovascular Cardiovascular: Denies chest pain Respiratory/Chest Respiratory/Chest: Denies cough or dyspnea Gastrointestinal Gastrointestinal: Denies abdominal pain, diarrhea, nausea or vomiting Genitourinary Genitourinary ED: Reports urinary frequency; Denies dysuria Musculoskeletal Musculoskeletal: Reports arthralgias, back pain and myalgias Integumentary Denies rash Neurologic Neurologic: Denies headache(s) Hematologic/Lymphatic Hematologic/Lymphatic: Denies easy bleeding or easy bruising EXAM Physical Exam Const Vital Signs: 11/01/22 03:00 Temperature 97.5 F L Temperature Source Temporal Pulse Rate 88 Respiratory Rate 19 H Blood Pressure 126/80 H Blood Pressure Mean 95 Pulse Ox 99 Oxygen Delivery Method Room Air Positive well nourished, well developed and obese General Appearance ED: well developed Nutritional Appearance: obese Eyes PERRL and EOMs intact bilaterally General Eye ED: Negative for scleral icterus Neck supple Neck Narrative: No nuchal rigidity or meningeal signs noted Resp normal respiratory effort and clear to auscultation bilaterally Cardio regular rate and regular rhythm Rate: other Other Details: Radial pulses are plus 2 out of 4 bilaterally are equal and symmetric GI non-tender and non-distended GI Narrative: Abdomen is obese soft nontender and nondistended with hypoactive bowel sounds. No voluntary guarding or rigidity. No pulsatile mass or fluid wave Auscultation: hypoactive bowel sounds Palpation: soft Extremity Extremity Narrative: Patient has chronic contractures/deformities of her fingers and toes consistent with rheumatoid arthritis. Otherwise there is no obvious joint effusion or signs of trauma Neuro oriented x3 and CN's II-XII intact bilaterally Sensorium / Orientation: alert Psych Psych Narrative: Patient has a anxious affect Skin no rashes or lesions noted Skin Narrative: No overlying soft tissue changes to suggest trauma or infection MDM MDM MDM Narrative Medical decision making narrative: Patient presented to the ER with stable vitals and reported that there was no recent trauma or excessive activity or change in her medication which could have stimulated her flare. She reports she has been having urinary frequency and with concern that she has a UTI leading to a fibromyalgia or lupus flare basic blood work was up. Labs show no leukocytosis or left shift and there is no signs of electrolyte derangement or acute kidney injury. Her CRP is elevated at 157 the patient does have changes consistent with acute UTI which could be the cause of the elevated inflammatory marker. The patient was given a total of 1.5 mg of Dilaudid, 100 mcg of fentanyl, 25 mg of Bentyl, 5 mg of Haldol, 4 mg of Zofran, and half milligram of Ativan. Despite this she still reports severe pain. I informed the patient that there is no further medication that I can provide her and she needs to take her home medication. I offered a prednisone taper to help with the inflammatory process causing increased pain at this time. The patient states that she cannot ambulate or care for self and is requesting admission to residential/TCU which she did roughly 1 year ago. At this time she does not have findings of urosepsis or acute kidney injury and therefore do not feel there is need for hospitalization secondary to her UTI and pain. Therefore social work will be consulted to see if she qualifies for placement in an extended care facility. At this time patient will be signed out to the [facility] day physician Dr. Hyde pending social work's recommendation. History & Record Review Discussion w/independent historian: Patient and Other (Patient's sister) Lab Data Attestation: I reviewed the patient's lab results. Labs: Laboratory Results - last 24 hr 11/01/22 11/01/22 11/01/22 06:15 06:15 07:00 WBC 6.9 RBC 4.22 Hgb 10.1 L Hct 34.9 L MCV 82.7 MCH 23.9 L MCHC 28.9 L RDW Std Deviation 48.8 H RDW Coeff of Neal 16.3 H Plt Count 272 MPV 9.7 Immature Gran % (Auto) 0.400 Neut % (Auto) 88.9 H Lymph % (Auto) 8.9 L [place] % (Auto) 1.6 Eos % (Auto) 0.1 Baso % (Auto) 0.1 Absolute Neuts (auto) 6.1 Absolute Lymphs (auto) 0.61 L Nucleated RBC % 0 ESR 16 Sodium 141 Potassium 3.8 Chloride 112 H Carbon Dioxide 21.0 Anion Gap 8 BUN 18 Creatinine 0.49 L Estim Creat Clear Calc 100.19 Est GFR (MDRD) Af Amer 167 Est GFR (MDRD) Non-Af 138 BUN/Creatinine Ratio 36.6 H Glucose 123 H Calcium 9.1 C-React Prot Ext Range 157.00 H Urine Color Yellow Urine Clarity Clear Urine pH 6.0 Ur Specific [place] 1.020 Urine Protein Negative Urine Glucose (UA) Normal Urine Ketones 5 H Urine Occult Blood 10 H Urine Nitrite Positive H Urine Bilirubin Negative Urine Urobilinogen 4 H Ur Leukocyte Esterase 25 H Urine RBC 0-5 SEEN Urine WBC 0-5 SEEN Ur Squamous Epith Cells 0 SEEN Urine Bacteria 4+ Urine Mucus 0 SEEN Discharge Plan Triage Chief Complaint: Other, Pain/Inj ED Provider: Raymond Brooks Dx/Rx/DC Orders Clinical Impression: Fibromyalgia, Rheumatoid arthritis flare, Debility, UTI (urinary tract infection) Instructions: Urinary Tract Infections in Women, ED Rheumatoid Arthritis, ED Fibromyalgia Prescriptions: New cephalexin 500 mg capsule 500 mg PO TID 7 Days Qty: 21 0RF prednisone 10 mg tablet 10 mg PO DAILY Qty: 63 0RF Rx Instructions: 60 mg p.o. daily ?3 days, 50 mg p.o. daily ?3 days, 40 mg p.o. daily ?3 days, 30 mg p.o. daily ?3 days, 20 mg p.o. daily ?3 days, 10 mg p.o. daily ?3 days. No Action levothyroxine 75 MCG tablet 88 mcg PO DAILY Label Comments: Thyroid medication topiramate 100 MG tablet 200 mg PO BID Label Comments: Migraines buspirone 10 MG tablet 10 mg PO TID trazodone 150 mg tablet 150 mg PO QHS duloxetine 60 mg capsule,delayed release(DR/EC) 60 mg PO DAILY zolpidem [Ambien] 10 MG tablet 10 mg PO QHS PRN PRN (Reason: Insomnia) 7 Days Qty: 5 0RF ferrous sulfate 325 mg (65 mg iron) tablet 325 mg PO BID cyanocobalamin (vitamin B-12) 2,000 mcg tablet 2,000 mcg PO DAILY gabapentin 600 mg Tablet 600 mg PO TIDCM 30 Days Qty: 90 0RF tramadol 50 mg Tablet 50 mg PO Q6H PRN PRN (Reason: Pain Score 4-5) 3 Days Qty: 12 0RF acetaminophen 500 mg Tablet 1,000 mg PO Q6H PRN PRN (Reason: Pain Score 1-3) Qty: 0 0RF potassium chloride [Klor-Con M20] 20 mEq Tablet,Er Particles/Crystals 20 meq PO TIDCM 30 Days Qty: 90 0RF simethicone 80 mg Tablet,Chewable 80 mg PO TIDPC PRN (Reason: Gas) 30 Days Qty: 90 0RF duloxetine 60 mg Capsule,Delayed Release(Dr/Ec) 60 mg PO DAILY Qty: 0 0RF tizanidine 4 mg tablet 4 mg PO 4X/DAY 30 Days Qty: 120 0RF Label Comments: TAKE 2 TABLETS BY MOUTH EVERY 6 HOURS NEEDED FOR MUSCLE SPASMS oxycodone 5 mg Tablet 10 mg PO Q4H PRN PRN (Reason: Pain Score 4-10) 3 Days Qty: 36 0RF ketorolac 10 mg tablet 10 mg PO Q8H PRN (Reason: pain) 5 Days Qty: 15 0RF prednisone 20 mg tablet See Rx Instructions .ROUTE .COMPLEX Qty: 24 0RF Rx Instructions: 3 tabs p.o. daily days 1 through 4, then 2 tabs p.o. daily days 5 through 8, then 1 tab p.o. daily day 9 through 12 Primary Care Provider: Jocelyn Wolff Referrals: Jocelyn Wolff, PA [Primary Care Provider] -
[2022-11-01] MEDS: DiphenhydrAMINE 50 MG/ML Syringe 25 MG IV (04:55)
[2022-11-01] MEDS: fentaNYL 100 MCG/2 ML Ampul IV (04:56)
[2022-11-01] MEDS: HYDROmorphone 0.5 MG/0.5 ML SYRINGE IV (06:16)
[2022-11-01] MEDS: Haloperidol Lactate 5 MG/ML Vial IV (06:16)
[2022-11-01 06:26] LABS: Absolute Lymphocyte Count 0.61 X10^3/uL (0.83-4.51); Absolute Neutrophil Count 6.1 X10^3/uL (2.0-7.7); Basophil# 0.01 X10^3/uL; Basophil% 0.1 % (0-1); Eosinophil# 0.01 X10^3/uL; Eosinophils% 0.1 % (0-5); Hematocrit 34.9 % (37-47); Hemoglobin 10.1 g/dL (12.0-15.0); Lymphocyte # 0.61 X10^3/ul (0.83-4.51); Lymphocyte % 8.9 % (19-41); Mean Corp Hgb Conc 28.9 g/dL (32-36); Mean Corpuscular Hgb 23.9 pg (27.0-32.0); Mean Corpuscular Volume 82.7 fL (81-99); Mean Platelet Vol. 9.7 fl (6.2-12.0); Monocyte# 0.11 X10^3/uL; Monocyte% 1.6 % (0-10); NRBC Flagged by Analyzer 0 % (0-5); Neutrophil # 6.09 X10^3/uL (2.7-7.7); Neutrophil % 88.9 % (47-70); Platelet Count 272 K/mm3 (150-450); RBC Distribution Width CV 16.3 % (11.6-14.6); RBC Distribution Width SD 48.8 fl (35.1-43.9); Red Blood Count 4.22 M/mm3 (4.2-5.4); White Blood Count 6.9 K/mm3 (4.4-11.0)
[2022-11-01 06:38] LABS: Erythrocyte Sedimentation Rate 16 mm/hr (0-30)
[2022-11-01 06:50] LABS: Anion Gap 8 (5-15); BUN 18 mg/dL (7-18); BUN/Creat Ratio 36.6 RATIO (10-20); Calcium,Total 9.1 mg/dL (8.5-10.1); Chloride 112 mmol/L (98-107); Creatinine, Serum 0.49 mg/dL (0.55-1.02); EST Glomerular Filtration Rate 138 mL/min (>60); Est Glom Filt Rate - Afr Amer 167 mL/min (>60); Estimated Creatinine Clearance 100.19 ml/min; Glucose 123 mg/dL (74-106); Potassium 3.8 mmol/L (3.5-5.1); Sodium Level 141 mmol/L (136-145)
[2022-11-01 07:06] LABS: Mucous, Urine 0 SEEN /hpf (<or=2+); Squamous Epithelial Cells - UA 0 SEEN /hpf (5-10)
[2022-11-01 07:17] LABS: Color, Urine Yellow (Yellow); Glucose, Dipstick Normal (Normal); Ketone-Dipstick 5 mg/dl (Negative); Leukocyte Esterase-Dipstick 25 /ul (Negative); Nitrite-Dipstick Positive (Negative); Occult Blood-Urine 10 /ul (Negative); Protein-Dipstick Negative (Negative); Urine Bilirubin Dipstick Negative (Negative); Urine Clarity Clear (Clear); Urine Urobilinogen 4 mg/dl (Normal)
[2022-11-01 07:22] LABS: Bacteria 4+ /hpf (None Seen); Red Blood Cells-Urine 0-5 SEEN /hpf (0-5); White Blood Cells 0-5 SEEN /hpf (0-5)
[2022-11-01] MEDS: Ceftriaxone 1 GM/50 ML BAG IV (07:56)
--- NOTE | 2022-11-01 10:53 | CM.ED ---
Addendum entered by Riri Thomas 11/01/22 12:42: OMAR contacted by Maribell at [facility] with acceptance for patient. Maribell states patient will need topiramate brought in for patient, pasr completed and discharge orders. OMAR informed MD of patient's acceptance and need for discharge paperwork. MD reports discharge already in with no changes. OMAR completed PASR and sent results via [employer]. hospital secretary arranged transportation, ETA 1400. OMAR met with patient and informed patient she was accepted at [facility]. SW inquired about a secondary insurance, patient reports she does not have a secondary. OMAR briefly reviewed insurance coverage, explaining patient's stay for days 1-20 are covered at 100%, days 21-100 are covered at 80%. SW encouraged patient to contact her insurance if she has questions or wants more information regarding coverage. OMAR informed patient, [facility] was requesting the patient bring her topiramate medication from home. Patient reports her sister could bring it and requests SW contact her due to patient not having a phone. Patient inquired about getting her home meds, SW to follow up. OMAR met with lead consultant regarding patient's medications. ILA Sanchez reports patient will have morning dose of home medications prior to discharge, medications are currently ordered. OMAR contacted patient's sister and introduced herself and role as [facility] SW. OMAR informed patient's sister the patient would be transferring to the [facility] and needed her topiramate medication brought in as well as her personal belongings and explained transportation was set up for 1400. Patient's sister voiced understanding. OMAR updated Maribell via [employer]. Plan: [facility] Riri Thomas WELDER 2ND SHIFT, SOCIAL WORKER AIDE Original Note: Social Work Note Referral Source: MD Hyde Referral Reason: discharge planning MD Hyde met with OMAR and reviewed patient's symptoms as well as concerns regarding going home. Patient interested in TCU as she has been there before. SW to follow up. OMAR contacted TCU admissions staff, Molly, to inquire about TCU beds. OMAR informed there is a wait list for TCU. OMAR met with patient and introduced herself and role as [facility] Franchise Manager. Patient was laying in hospital bed and agreeable to speak to SW. OMAR inquired about patient's concerns with returning home. Patient reports she is struggling with pain and feels she isn't able to support herself at home. OMAR informed patient TCU has no available beds, however, SW provided patient with a list of local SNF in network with patient's insurance. SW assisted patient with reviewing the list. Patient selected [facility] and [facility]. SW briefly explained the referral process and explained she would keep patient informed regarding those facilities. Patient inquired about pain medication, SW to inform patient's nurse. SW informed patient's RN of her request for pain medication, RN to follow up with patient. OMAR contacted admissions staff at [facility] to inquire about bed availability, OMAR informed there are beds available. [facility] Plan: pending acceptance to [facility] ANDREZ Nowak
[2022-11-01] MEDS: oxyCODONE 5 MG Tablet PO (12:38)
[2022-11-01 12:39] VITALS: BP 152/94; PULSE 110; RESP 18; O2SAT 99
[2022-11-01] MEDS: Topiramate 100 MG Tablet 200 MG PO (14:26)
[2022-11-01 14:31] VITALS: BP 149/75
[2022-11-01 14:51] LABS: Bedside Glucose 101 mg/dL (74-106)
== END 2022-11-01 14:32 | disposition skilled nursing facility (03) ==
PROVIDERS: Emergency Provider Emergency Medicine; PCP Physician Assistant; Visit Provider Emergency Medicine
DX: M06.9 Rheumatoid arthritis, unspecified (principal); M32.9 Systemic lupus erythematosus, unspecified; N39.0 Urinary tract infection, site not specified; R53.81 Other malaise; M79.7 Fibromyalgia; Z79.899 Other long term (current) drug therapy; Z79.891 Long term (current) use of opiate analgesic; G62.9 Polyneuropathy, unspecified; Z98.84 Bariatric surgery status
CPT/HCPCS: 80048; 81001; 82962; 85025; 85652; 86140; 87077; 87086; 87088; 87186; 96365; 96375; 96376; 99284; J7050; A4216; J2405

== ENCOUNTER → 2024-04-27 | Outpatient (CLI) | payer MEDICARE, SELFPAY ==
[2024-04-27 18:04] LABS: Absolute Neutrophil Count 2.8 X10^3/uL (2.0-7.7); Basophil# 0.03 X10^3/uL; Basophil% 0.7 % (0-1); Eosinophil# 0.07 X10^3/uL; Eosinophils% 1.5 % (0-5); Hemoglobin 10.3 g/dL (12.0-15.0); Lymphocyte % 28.7 % (19-41); Mean Corp Hgb Conc 28.6 g/dL (32-36); Mean Corpuscular Hgb 22.9 pg (27.0-32.0); Mean Platelet Vol. 10.5 fl (6.2-12.0); Monocyte# 0.31 X10^3/uL; Monocyte% 6.8 % (0-10); NRBC Flagged by Analyzer 0 % (0-5); Neutrophil # 2.81 X10^3/uL (2.7-7.7); Neutrophil % 62.1 % (47-70); Platelet Count 283 K/mm3 (150-450); RBC Distribution Width CV 17.8 % (11.6-14.6); RBC Distribution Width SD 51.4 fl (35.1-43.9); White Blood Count 4.5 K/mm3 (4.4-11.0)
[2024-04-27 18:48] LABS: Vitamin B12 259 pg/mL (211-911); Vitamin D,25 Hydroxy 6.2 ng/mL
[2024-04-27 19:12] LABS: ALB/GLOB Ratio 0.7 RATIO (0.9-2.4); AST(SGOT) 12 U/L (15-37); Alanine Aminotransfer ALT/SGPT 20 U/L (13-56); Albumin, Serum 2.8 g/dL (3.2-5.0); Alkaline Phosphatase 202 U/L (45-117); Anion Gap 7 (5-15); BUN 10 mg/dL (7-18); BUN/Creat Ratio 18.7 RATIO (10-20); Calcium,Total 8.4 mg/dL (8.5-10.1); Chloride 115 mmol/L (98-107); Cholesterol 155 mg/dL (200); Creatinine, Serum 0.53 mg/dL (0.55-1.02); EST Glomerular Filtration Rate 125 mL/min (>60); Est Glom Filt Rate - Afr Amer 151 mL/min (>60); Glucose 95 mg/dL (74-106); High Density Lipoprotein 51 mg/dL; Potassium 3.5 mmol/L (3.5-5.1); Protein, Total 6.8 g/dL (6.4-8.2); Sodium Level 141 mmol/L (136-145); T4 Free Direct 0.92 ng/dL (0.76-1.46); Triglycerides 87 mg/dL; Very Low Density Lipoprotein 17 mg/dL (5-40)
== END | disposition home or self-care (01) ==
LOC: BFHLAB 15:45
PROVIDERS: PCP Nurse Practitioner Family; Referring Provider Nurse Practitioner Family; Visit Provider Nurse Practitioner Family
DX: E03.9 Hypothyroidism, unspecified (principal); E55.9 Vitamin D deficiency, unspecified; E53.8 Deficiency of other specified B group vitamins; I10 Essential (primary) hypertension; E78.5 Hyperlipidemia, unspecified
CPT/HCPCS: 36415; 80053; 80061; 82306; 82607; 84439; 84443; 85025

== ENCOUNTER → 2025-02-11 | Outpatient (CLI) | payer MEDICARE, SELFPAY ==
--- NOTE | 2025-02-11 14:42 | RAD_ITS ---
PROCEDURE: KNEE 1 OR 2 VIEWS 02/11/2025 REASON FOR EXAM: OA TECHNIQUE: 2 view(s) of the right knee COMPARISON: None. FINDINGS: Moderate tricompartmental changes of degenerative joint disease, more prominent in the medial tibiofemoral compartment. Mild osteopenia of the visualized bones. Degenerative joint disease. No fracture or dislocation is seen. No lytic or blastic bone lesion is noted. RAD/Knee 1 or 2 Views IMPRESSION: No evidence for acute abnormality. Reading Location: [facility]
--- NOTE | 2025-02-11 14:42 | RAD_ITS ---
PROCEDURE: LUMBAR SPINE 2 OR 3 VIEWS 02/11/2025 REASON FOR EXAM: PAIN TECHNIQUE: 2 view(s) of the lumbar spine COMPARISON: None. FINDINGS: Mild degenerative levoscoliosis apex at L3. There are diffuse spondylotic changes. Findings are demonstrated to by diffuse disc space narrowing, osteophyte formation and degenerative endplate sclerosis. There is diffuse facet joint arthropathy with secondary bilateral neural foramina narrowing. No fracture or dislocation is seen. No aggressive lytic or blastic bony lesion is noted. Metallic clips are folds in the right upper quadrant. Mild diffuse gaseous dilatation of the bowels. RAD/Lumbar Spine 2 or 3 Views IMPRESSION: Spondylosis. Reading Location: [facility]
--- NOTE | 2025-02-11 14:42 | RAD_ITS ---
PROCEDURE: KNEE 1 OR 2 VIEWS 02/11/2025 REASON FOR EXAM: OA TECHNIQUE: 2 view(s) of the left knee COMPARISON: 05/18/2021. FINDINGS: Moderate tricompartmental changes of degenerative joint disease, more prominent in the medial tibiofemoral compartment. Mild osteopenia of the visualized bones. Degenerative joint disease. No fracture or dislocation is seen. No lytic or blastic bone lesion is noted. RAD/Knee 1 or 2 Views IMPRESSION: Moderate tricompartmental changes of degenerative joint disease, increased. Reading [facility]
== END | disposition home or self-care (01) ==
LOC: RAD 14:41
PROVIDERS: PCP Nurse Practitioner Family; Referring Provider Anesthesiology Pain Medicine; Visit Provider Anesthesiology Pain Medicine
DX: M54.9 Dorsalgia, unspecified (principal); M17.0 Bilateral primary osteoarthritis of knee
CPT/HCPCS: 72100; 73560

== ENCOUNTER → 2025-04-12 | Outpatient (CLI) | payer MEDICARE, SELFPAY ==
--- OUTSIDE RECORDS SUMMARY | 2025-04-12 21:12 | XMS RPT_ITS | CCD ---
Author Organization [facility] CliniSyid Care Team Providers Care Event Marketing Representative Name Role Phone New PAJessCJocelyn Primary Care Provider Wolff RICHELLE PA Jocelyn Reed Primary Care Provider Dr. Raymond Brooks Emergency Provider Dr. Lina Welsh Admit Provider Dr. Lina Welsh Attending Provider Dr. Lina Welsh Other Provider Jocelyn Wolff PA-C Primary Care Provider Wolff PAJessC, Jocelyn Reed Primary Care Provider Unavailable Primary Care Provider Unavailabl e Unavailable Primary Care Provider Unavailabl e RICHELLE Kathleen Primary Care Provider [phone] Dr. Raymond Brooks Emergency Provider Dr. Lina Welsh Admit Provider Dr. Lina Welsh Attending Provider Dr. Lina Welsh Other Provider Wolff PA-C, Jocelyn Reed Primary Care Provider WOLFFJocelynORY Primary Care Unavailable HAAGEN, MARSHA Attending Unavailable WOLFF, M MARY Primary Care Unavailable HAAGEN, MARSHA Referring Unavailable WOLFF, M MARY Primary Care Unavailable HAAGEN, MARSHA Referring Unavailable WOLFF, M MARY Primary Care Unavailable HAAGEN, MARSHA Referring Unavailable WOLFF, M MARY Primary Care Unavailable HAAGEN, MARSHA Referring Unavailable WOLFF, M MARY Primary Care Unavailable HAAGEN, MARSHA Attending Unavailable HAAGEN, MARSHA Referring Unavailable WOLFF, M MARY Primary Care Unavailable Wolff PA-C, M Mary Primary Care Provider [phone] Jocelyn Wolff PA-C Primary Care Provider [phone] [place] MCNEILC, [place] Primary Care Provider [phone] Leah SALGADO, Dr. Schwartz Attending Provider [phone] Efren Lynn MD Referring Provider [place], [place] Primary Care Unavailable Efren Lynn Referring Unavailable Efren Lynn Attending Unavailable PhoenixSena scott Referring Unavailable PhoenixSena Attending Unavailable [place], [place] Primary Care Unavailable Allergies Allergy Classification Reported Allergen(s) Allergy Type Date of Onset Reaction(s) Facility (20 sources) Acetaminophen / HYDROcodone; Translations: [HYDROCODONE-ACETAM INOPHEN] Drug Allergy 05-04-20 05 Mental Status Change [facility] Work Phone: (20 sources) adalimumab; Translations: [ADALIMUMAB] Drug Allergy 04-07-20 13 Rash [facility] Work Phone: (20 sources) Amitriptyline; Translations: [AMITRIPTYLINE] Drug Allergy 12-18-19 20 GI Upset [facility] (20 sources) Benzoyl Peroxide / Erythromycin; Translations: [ERYTHROMYCIN-BENZO YL PEROXIDE] Drug Allergy 08-01-20 05 Intolerance [facility] Work Phone: (20 sources) Capsaicin; Translations: [CAPSAICIN] Drug Allergy 08-23-20 05 [facility] Work Phone: (20 sources) Diclofenac; Translations: [DICLOFENAC SODIUM] Drug Allergy 08-29-20 05 [facility] (20 sources) Etodolac; Translations: [ETODOLAC] Drug Allergy 10-11-19 06 GI Upset [facility] Work Phone: (20 sources) gabapentin; Translations: [GABAPENTIN] Drug Allergy 08-01-20 05 [facility] Work Phone: (20 sources) guaiFENesin / Pseudoephedrine; Translations: [PSEUDOEPHEDRINE- AIFENESIN] Drug Allergy 04-14-20 11 Diarrhea [facility] Work Phone: (20 sources) Methotrexate; Translations: [METHOTREXATE] Drug Allergy 04-05-20 14 Other: See Comments [facility] (13 sources) Non-steroidal anti-inflammatory agent; Translations: [NSAIDS (NON-STEROIDAL ANTI-INFLAMMATORY DRUG)] Drug Intolerance 07-06-20 19 Other: See Comments [facility] (20 sources) Sulfamethoxazole / Trimethoprim; Translations: [SULFAMETHOXAZOLE-T RIMETHOPRIM] Drug Allergy 05-04-20 05 GI Upset [facility] Work Phone: (20 sources) traMADol; Translations: [TRAMADOL HCL] Drug Allergy 08-01-20 05 Diarrhea [facility] Work Phone: (20 sources) environmental [Other] Propensity to adverse reactions 08-19-20 07 [facility] (20 sources) Non-steroidal anti-inflammatory agent Drug Intolerance 07-06-20 19 Other: See Comments [facility] (5 sources) HYDROcodone; Translations: [hydrocodone bitartrate] Drug Allergy 06-14-20 22 Other, Vomiting [facility] (4 sources) Sulfamethoxazole Drug Allergy 06-14-20 22 Vomiting [facility] (4 sources) Trimethoprim Drug Allergy 06-14-20 22 Vomiting [facility] (1 source) Cat [place]ander Propensity to adverse reactions to drug 11-24-19 24 Other: See Comments [facility] Work Phone: (1 source) OTHER; Translations: [OTHER] Propensity to adverse reactions (disorder) 08-19-20 07 [facility] (1 source) Sulfamethoxazole Drug Allergy 11-02-19 23 [facility] (1 source) Trimethoprim Drug Allergy 11-02-19 23 [facility] Medications Current Medications Medication Drug Class(es) Dates Sig (Normalized) Sig (Original) acetaminophen 325 mg / oxyCODONE hydrochloride 5 mg oral tablet (20 sources) Opioid Agonist Start: 11-01-2022 Oxycodone-Acetamin ophen 5-325 mg tablet Active 1 {tbl} PO 4 TIMES DAILY November 01, 2022 1:00am Start: 10-04-2022 oxyCODONE-acet aminophen (PERCOCET) 5-325 mg tablet Indications: Rheumatoid arthritis involving multiple sites with positive rheumatoid factor (HCC) Weanin tab three times a day for 5 days, then 1 tab twice a day x 5 days, then once tab daily x 5 days, then 1/2 tab daily x 4 days 32 tablet 0 10/04/2022 Active Start: 09-04-2022 End: 09-04-2022 oxyCODONE-acetaminophen (PER COCET) 5-325 mg tablet Indications: Rheumatoid arthritis involving multiple sites with positive rheumatoid factor (HCC) Weaning: one tab q8h x 7days, then one tab q12h x 7 days, then once a day for 7 days, and then 1/2 tab daily if needed x until gone 28 tablet 0 09/04/2022 09/04/2022 Discontinued Start: 07-12-2022 End: 09-08-2022 take 1 tablet by mouth every six hours as needed for pain oxyCODONE-acetaminophen (PERCOCET) 5-325 mg tablet Indications: Rheumatoid arthritis involving multiple sites with positive rheumatoid factor (HCC) Take 1 tablet by mouth every 6 hours as needed for pain. 120 tablet 0 09/04/2022 Active Start: 07-10-2022 End: 07-10-2022 take 1 tablet by mouth every six hours as needed for pain oxyCODONE-acetaminophen (PERCOCET) 5-325 mg tablet Indications: Rheumatoid arthritis involving multiple sites with positive rheumatoid factor (HCC) Take 1 tablet by mouth every 6 hours as needed for pain for up to 30 days. 120 tablet 0 07/10/2022 07/10/2022 Discontinued Start: 07-03-2022 End: 07-10-2022 take 2 tablets by mouth every four hours as needed for pain oxyCODONE-acetaminophen (PERCOCET) 5-325 mg tablet Indications: Spinal stenosis, lumbar region with neurogenic claudication , Rheumatoid arthritis involving multiple sites, unspecified whether rheumatoid factor present (HCC) Take 2 tablets by mouth every 4 hours as needed for pain. 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 Do not start before March 31, 2022. 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 90 tablet 03/13/2021 04/10/2021 Discontinued Start: 12-21-2016 End: 05-25-2017 Oxycodone-Acetaminophen 1 TA BLET tablet Discontinued 1 {tbl} PO EVERY 4 HOURS NEEDED as needed for Pain December 21, 2016 12:00am May 25, 2017 12:27pm Start: 12-21-2016 End: 05-25-2017 take 1 tablet by mouth every four hours as needed Oxycodone-Acetaminophen Discontinued 1 TABLET PO EVERY 4 HOURS NEEDED December 20, 2016 11:00pm May 25, 2017 11:27am Comment on above: Take 1 tablet by maryellen th every 6 hours as needed for pain for up to 30 days. Do not start before November 12, 2021. Take 1 tablet by maryellen th every 6 hours as needed for pain for up to 30 days. Do not start before January 11, 2022. Take 1 tablet by maryellen th every 6 hours as needed for pain for up to 30 days. Do not start before December 12, 2021. Take 1 tablet by maryellen th every 6 hours as needed for pain for up to 30 days. Take 1 tablet by maryellen th every 6 hours as needed for pain for up to 19 days. Do not start before February 10, 2022. Take 1 tablet by maryellen th every 6 hours as needed for pain for up to 30 days. Do not start before March 31, 2022. Take 1 tablet by maryellen th every 6 hours as needed for pain (for pain.) for up to 30 days. Take 2 tablets by mo [facility] every 4 hours as needed for pain. Take 1 tablet by maryellen th every 6 hours as needed for pain for up to 30 days. Do not start before August 09, 2022. Take 1 tablet by maryellen th every 6 hours as needed for pain. Weaning: one tab q8h x 7days, then one tab q12h x 7 days, then once a day for 7 days, and then 1/2 tab daily if needed x until gone Weanin tab three times a day for 5 days, then 1 tab twice a day x 5 days, then once tab daily x 5 days, then 1/2 tab daily x 4 days [id number] actuat albuterol 0.09 mg/actuat metered dose inhaler (20 sources) beta2-Adrenergic Agonist Start: 2018 take 2 puff(s) by inhalation every four hours as needed for wheezing albuterol HFA (PROVENTIL HFA, VENTOLIN HFA) 90 mcg/actuation inhaler Inhale 2 Puffs as instructed every 4 hours as needed for Wheezing/Shortness of Breath. 1 Inhaler 11 11/11/2018 Active Comment on above: Inhale 2 Puffs as in structed every 4 hours as needed for Wheezing/Shortness of Breath. Blood-Glucose Meter (ONETOUCH ULTRA SYSTEM KIT) monitoring kit (20 sources) Start: 2014 Blood-Glucose Meter (ONETOUCH ULTRA SYSTEM KIT) monitoring kit test one time daily dx 250.00 no insulin 1 Each 0 02/25/2015 Active Comment on above: test one time daily dx 250.00 no insulin cephalexin 500 mg oral capsule (1 source) Cephalosporin Antibacterial Start: 2022 take 1 capsule by mouth three times daily Cephalexin 500 mg capsule Active 500 mg PO THREE TIMES A DAY 22 03November 01, 2022 1:00am cholecalciferol 0.125 mg oral tablet (20 sources) Vitamin D Start: 2020 End: 2022 take 1 tablet by mouth once daily cholecalciferol (VITAMIN D3) 5,000 unit tab Take 1 tablet by mouth once daily. 30 tablet 5 02/11/2023 Active Start: 07-07-2019 End: 04-25-2021 take 1 capsule by mouth once daily cholecalciferol, vitamin D3, (VITAMIN D3) 4,000 unit cap Take 1 capsule by mouth once daily. 07/07/2019 04/25/2021 Discontinued (Course of therapy completed) Comment on above: Take 1 tablet by maryellen th once daily. ferrous sulfate 325 mg oral tablet (20 sources) Start: 02-11-2023 take 1 tablet by mouth once daily at breakfast ferrous sulfate 325 mg (65 mg iron) tablet Indications: Iron deficiency anemia, unspecified iron deficiency anemia type Take 1 tablet by mouth daily with breakfast. 30 tablet 5 02/11/2023 Active Start: 06-14-2022 End: 06-14-2022 take 1 tablet by mouth twice daily Ferrous Sulfate 325 mg (65 mg iron) tablet Discontinued 325 mg PO TWICE A DAY June 14, 2022 12:00am June 14, 2022 5:00pm Comment on above: Take 1 tablet by maryellen th daily with breakfast. fluticasone propionate 0.05 mg/actuat metered dose nasal spray (20 sources) Corticosteroid Start: 04-07-20 take 2 spray(s) by mouth once daily fluticasone (FLONASE) 50 mcg/actuation nasal spray Use 2 Sprays in each nostril once daily. Rinse mouth after use. 1 Bottle 04/07/2020 Active Comment on above: Use 2 Sprays in each nostril once daily. Rinse mouth after use. levothyroxine sodium 0.088 mg oral tablet (20 sources) l-Thyroxine Start: 07-26-20 End: 06-12-20 take 1 tablet by mouth once daily Levothyroxine 88 mcg tablet Active 88 ug PO DAILY November 01, 2022 1:00am Start: 06-28-2013 End: 07-03-2022 take 1 tablet by mouth once daily levothyroxine (SYNTHROID) 75 mcg tablet Take 1 tablet by mouth once daily. 0 06/28/2013 07/03/2022 Discontinued Start: 06-28-2013 take 88 ug by mouth once daily Levothyroxine Active 88 MCG PO DAILY June 27, 2013 11:00pm Comment on above: Take 1 tablet by maryellen th once daily. Take on empty stomach. Take 1 tablet by maryellen th once daily. Take on empty stomach. For Thyroid Take 1 tablet by maryellen once daily. LORazepam 0.5 mg oral tablet (3 sources) Benzodiazepine Start: 12-29-19 End: 01-07-20 LORazepam (ATIVAN) 0.5 mg Indications: Chronic insomnia 1 -2 tabs a night as needed for sleep 14 tablet 0 12/28/2021 01/06/2022 Active Comment on above: 1 -2 tabs a night as needed for sleep mupirocin 0.02 mg/mg topical ointment (1 source) RNA Synthetase Inhibitor Antibacterial Start: 06-04-20 End: 06-09-20 mupirocin (BACTROBAN) 2 % ointment Indications: Injury of great toenail Apply to affected area three times a day for 5 days. Apply to toe 15 g 0 06/04/2023 06/09/2023 Active Comment on above: Apply to affected ar ea three times a day for 5 days. Apply to toe naloxone 4 mg/actuation nasal spray (NARCAN) (1 source) Start: 07-03-20 naloxone 4 mg/actuation nasal spray (NARCAN) Use 1 spray in one nostril as needed for overdose. May repeat every 2 to 3 min in alternating nostrils until medical assistance is available 1 Each 07/03/2022 Active oxyCODONE hydrochloride 5 mg oral tablet (13 sources) Opioid Agonist Start: 06-14-20 End: 07-10-20 take 2 tablets by mouth every four hours as needed oxyCODONE IR (ROXICODONE) 5 mg immediate release tablet Take 2 tablets by mouth every 4 hours as needed for pain. Pain score 4-10 0 06/26/2022 07/10/2022 Discontinued Start: 06-14-2022 End: 06-26-2022 take 10 mg by mouth every four hours as needed Oxycodone Active 10 MG PO EVERY 4 HOURS NEEDED 36 3 June 26, 2022 Comment on above: Take 2 tablets by mo [facility] every 4 hours as needed for pain. Pain score 4-10 predniSONE 10 mg oral tablet (20 sources) Start: 02-06-2023 End: 02-18-2023 predniSONE (DELTASONE) 10 mg tablet Indications: Acute pain of both knees Take 4 tabs daily x 3 days, then 3 tabs x 3 days, 2 tabs x 3 days, then 1 tab x3 days with food. 30 tablet 0 02/06/2023 02/18/2023 Active Start: 11-01-2022 Prednisone 10 mg tablet Active 10 mg PO DAILY November 01, 2022 1:00am 60 mg p.o. daily 3 days, 50 mg p.o. daily 3 days, 40 mg p.o. daily 3 days, 30 mg p.o. daily 3 days, 20 mg p.o. daily 3 days, 10 mg p.o. daily 3 days. Start: 08-28-2022 End: 09-09-2022 predniSONE (DELTASONE) 10 mg tablet Indications: Rheumatoid arthritis involving multiple sites with positive rheumatoid factor (HCC) Take 4 tabs daily x 3 days, then 3 tabs x 3 days, 2 tabs x 3 days, then 1 tab x3 days with food. 30 tablet 0 08/28/2022 09/09/2022 Start: 08-04-2022 Prednisone Act stella 0 .ROUTE .COMPLEX August 04, 2022 12:00am 3 tabs p.o. daily days 1 through 4, then 2 tabs p.o. daily days 5 through 8, then 1 tab p.o. daily day 9 through 12 Start: 06-14-2022 End: 06-14-2022 take 1 tablet by mouth twice daily Prednisone 10 mg tablet Discontinued 10 mg PO TWICE A DAY June 14, 2022 12:00am June 14, 2022 12:51pm Start: 06-14-2022 End: 06-26-2022 take 2 tablets by mouth twice daily, then take 3 tablets by mouth once daily, then take 2 tablets by mouth once daily, then take 1 tablet by mouth once daily Prednisone 10 mg tablet Discontinued 20 mg PO TWICE A DAY June 14, 2022 5:00pm June 26, 2022 7:47pm 20 mg p.o. twice daily x4 days, then 30 mg daily x4 days, then 20 mg daily x4 days, then 10 mg daily thereafter Start: 06-14-2022 End: 06-26-2022 take 20 mg by mouth twice daily, then take 30 mg by mouth once daily, then take 20 mg by mouth once daily, then take 10 mg by mouth once daily Prednisone Discontinued 20 MG PO TWICE A DAY June 14, 2022 4:00pm June 26, 2022 6:47pm 20 mg p.o. twice daily x4 days, then 30 mg daily x4 days, then 20 mg daily x4 days, then 10 mg daily thereafter Start: 06-07-2022 End: 06-19-2022 predniSONE (DELTASONE) 10 mg tablet Indications: Rheumatoid arthritis involving multiple sites with positive rheumatoid factor (HCC) Take 4 tabs daily x 3 days, then 3 tabs x 3 days, 2 tabs x 3 days, then 1 tab x3 days with food. 30 tablet 0 06/07/2022 06/19/2022 Start: 12-26-2021 End: 12-31-2021 take 2 tablets by mouth once daily predniSONE (DELTASONE) 20 mg tablet Indications: Knee effusion, right Take 2 tablets by mouth once daily for 5 days. 10 tablet 0 12/26/2021 12/31/2021 Active Start: 06-29-2013 End: 10-22-2015 Prednisone 20 MG tablet Disc ontinued 20 mg PO DAILY June 29, 2013 12:00am October 22, 2015 8:48pm Take 3 tabs daily orally x 3 days, then 2 tabs daily orally x 3 days, then one tab daily orally x 3 days, then 1/2 tab daily orally x 4 days,then stop. Comment on above: Take 2 tablets by [facility] once daily for 5 days. Take 4 tabs daily x 3 days, then 3 tabs x 3 days, 2 tabs x 3 days, then 1 tab x3 days with food. promethazine hydrochloride 12.5 mg oral tablet (4 sources) Phenothiazine Start: 03-04-20 End: 03-10-20 take 1 tablet by mouth every eight hours as needed promethazine (PHENERGAN) 12.5 mg tablet Take 1 tablet by mouth every 8 hours as needed for up to 6 days. 18 tablet 0 03/04/2022 03/10/2022 Active Start: 05-31-2020 End: 04-25-2021 take 1 tablet by mouth every six hours as needed promethazine (PHENERGAN) 25 mg tablet Go-Pack Take 1 tablet by mouth every 6 hours as needed for Nausea/Vomiting. 40 tablet 3 05/31/2020 04/25/2021 Discontinued (Course of therapy completed) Comment on above: Take 1 tablet by maryellen th every 8 hours as needed for up to 6 days. simethicone 80 mg chewable tablet (20 sources) Start: 2 take 1 tablet by mouth every eight hours as needed simethicone, chewable (MYLICON) 80 mg chewable tablet Take 1 tablet by mouth three times daily as needed. 06/26/2022 Active Comment on above: Take 1 tablet by maryellen th three times daily as needed. traMADol hydrochloride 50 mg oral tablet (6 sources) Opioid Agonist Start: 2 End: 2 take 50 mg by mouth every six hours as needed Tramadol Active 50 MG PO EVERY 6 HOURS NEEDED 12 June 25, 2022 11:00pm Comment on above: Take 1 tablet by maryellen th every 6 hours as needed for pain. Pain score 4-5 traZODone hydrochloride 150 mg oral tablet (20 sources) Serotonin Reuptake Inhibitor Start: 2 End: 3 take 1 tablet by mouth at bedtime Trazodone 150 mg tablet Active 150 mg PO AT BEDTIME June 14, 2022 12:00am Start: 02-01-2022 End: 05-17-2022 take 1 tablet by mouth once daily at bedtime traZODone (DESYREL) 100 mg tablet Take 1 tablet by mouth daily at bedtime. 90 tablet 1 02/01/2022 05/17/2022 Discontinued (Course of therapy completed) Start: 06-20-2021 End: 02-01-2022 take 1.5 tablets by mouth once daily at bedtime traZODone (DESYREL) 50 mg tablet Take 1.5 tablets by mouth daily at bedtime. 45 tablet 2 11/28/2021 02/01/2022 Discontinued Start: 09-05-2020 End: 04-25-2021 take 1 tablet by mouth once daily at bedtime traZODone (DESYREL) 50 mg tablet Take 1 tablet by mouth daily at bedtime. 30 tablet 11 09/05/2020 04/25/2021 Discontinued (Adjust Sig - Block E-Cancel) Comment on above: Take 1.5 tablets by mouth daily at bedtime. Take 1 tablet by maryellen th daily at bedtime. Completed/Discontinued Medications Medication Drug Class(es) Dates Sig (Normalized) Sig (Original) acetaminophen 500 mg oral tablet (6 sources) Start: 06-26-2022 End: 07-10-2022 take 2 tablets by mouth every six hours as needed acetaminophen (TYLENOL) 500 mg tablet Take 2 tablets by mouth every 6 hours as needed for pain. Pain score 1-3 0 06/26/2022 07/10/2022 Discontinued Start: 06-26-2022 take 1000 mg by mout h every six hours as needed Acetaminophen Active 1000 MG PO EVERY 6 HOURS NEEDED 0 June 25, 2022 11:00pm Comment on above: Take 2 tablets by mo uth every 6 hours as needed for pain. Pain score 1-3 alendronic acid 70 mg oral tablet (20 sources) Bisphosphonate Start: 11-29-19 End: 07-05-20 take 1 tablet by mouth every week alendronate (FOSAMAX) 70 mg tablet Indications: Osteoporosis without current pathological fracture, unspecified osteoporosis type Take 1 tablet by mouth one time a week. Take with a full glass of water, on an empty stomach; do NOT lie down for 30minutes. 12 tablet 3 11/28/2021 07/05/2023 Discontinued (Other) Comment on above: Take 1 tablet by maryellen th one time a week. Take with a full glass of water, on an empty stomach; do NOT lie down for 30minutes. busPIRone hydrochloride 15 mg oral tablet (20 sources) Start: 01-04-20 End: 09-14-19 take 1 tablet by mouth three times daily busPIRone (BUSPAR) 15 mg tablet Take 1 tablet by mouth three times daily. 90 tablet 01/04/2020 09/14/2021 Discontinued (Course of therapy completed) Start: 12-18-2019 End: 07-03-2022 take 1 tablet by mouth three times daily Buspirone 10 MG tablet Active 10 mg PO THREE TIMES A DAY December 18, 2019 12:00am Comment on above: Take 1 tablet by maryellen th three times daily. calcium carbonate 1500 mg / cholecalciferol 200 unt oral tablet (20 sources) Vitamin D Start: 021 End: 024 take 1 tablet by mouth twice daily calcium carbonate 600 mg-cholecalciferol 200 units (CALCIUM 600 + D,3,) 600 mg(1,500mg) -200 unit tab Take 1 tablet by mouth twice daily. 60 tablet 2 08/13/2021 06/12/2023 Discontinued Comment on above: Take 1 tablet by maryellen th twice daily. Take 1 tablet by maryellen th two times a day. dicyclomine hydrochloride 10 mg oral capsule (1 source) Anticholinergic Start: End: take 1 capsule by mouth at bedtime as needed dicyclomine (BENTYL) 10 mg capsule Indications: Irritable bowel syndrome with constipation Take 1 capsule by mouth before meals and at bedtime. as needed for abdominal cramping 50 capsule 11 02/04/2020 09/14/2021 Discontinued DULoxetine 60 mg delayed release oral capsule (20 sources) Serotonin and Norepinephrine Reuptake Inhibitor Start: End: take 1 capsule by mouth once daily Duloxetine 60 mg Capsule,Delayed Release(Dr/Ec) Discontinued 60 mg PO DAILY 0 June 26, 2022 12:00am November 01, 2022 12:59pm Start: 10-11-2021 End: 11-25-2023 take 1 capsule by mouth twice daily Duloxetine 60 mg capsule,delayed release(DR/EC) Active 60 mg PO TWICE A DAY November 01, 2022 12:58pm Start: 05-25-2020 End: 04-29-2021 take 1 capsule by mouth once daily DULoxetine (CYMBALTA) 60 mg capsule Indications: Depression, unspecified depression type Take 1 capsule by mouth once daily. 30 capsule 11 05/25/2020 04/29/2021 Discontinued Comment on above: Take 1 capsule by mo ut twice daily. Take 1 capsule by mo ut two times a day. folic acid 1 mg oral tablet (1 source) Start: 12-05-2017 End: 09-14-2021 take 1 tablet by mouth once daily folic acid 1 mg tablet Take 1 tablet by mouth once daily. 100 tablet 2 12/05/2017 09/14/2021 Discontinued gabapentin 600 mg oral tablet (20 sources) Anti-epileptic Agent Start: 09-13-2023 take 1 tablet by mouth three times daily gabapentin (NEURONTIN) 600 mg tablet Indications: Spinal stenosis, lumbar region with neurogenic claudication Take 1 tablet by mouth three times a day for 60 days. 90 tablet 1 09/13/2023 Active Start: 06-26-2022 End: 07-28-2023 take 1 tablet by mouth three times daily gabapentin (NEURONTIN) 600 mg tablet Indications: Spinal stenosis, lumbar region with neurogenic claudication Take 1 tablet by mouth three times daily for 60 days. 180 tablet 0 05/29/2023 Active Comment on above: Take 1 tablet by maryellen three times daily for 90 days. Take 1 tablet by maryellen th three times daily before meals. Take 1 tablet by maryellen th three times daily for 60 days. Take 1 tablet by maryellen th three times a day for 60 days. hydrOXYzine hydrochloride 10 mg oral tablet (11 sources) Antihistamine Start: 04-19-20 End: 07-03-20 take 1 tablet by mouth every eight hours as needed hydrOXYzine HCl (ATARAX) 10 mg tablet Take 1 tablet by mouth three times daily as needed for anxiety. 30 tablet 1 04/19/2022 07/03/2022 Discontinued (Discontinued by another Health Care Provider) Start: 07-26-2020 End: 09-14-2021 take 1 tablet by mouth every eight hours as needed for anxiety hydrOXYzine HCl (ATARAX) 25 mg tablet Indications: Chronic anxiety Take 1 tablet by mouth every 8 hours as needed for Anxiety. 90 tablet 11 07/26/2020 09/14/2021 Discontinued (Course of therapy completed) Comment on above: Take 1 tablet by maryellen three times daily as needed for anxiety. 2 ml ketorolac tromethamine 30 mg/ml injection (2 sources) Nonsteroidal Anti-inflammatory Drug, Cyclooxygenase Inhibitor Start: 02-06-2023 End: 02-06-2023 keTORolac 60 mg injection (Toradol) Start: 08-04-2022 take 10 mg by mouth every eight hours Ketorolac Active 10 MG PO Q8H 15 August 04, 2022 12:00am meclizine hydrochloride 25 mg oral tablet (8 sources) Antiemetic Start: 04-07-2020 End: 12-23-2021 take 1 tablet by mouth every six hours as needed meclizine (ANTIVERT) 25 mg tab Take 1 tablet by mouth every 6 hours as needed (dizziness). 20 tablet 04/07/2020 12/23/2021 Discontinued Comment on above: Take 1 tablet by maryellen every 6 hours as needed (dizziness). 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 30 g 1 01/19/2019 04/25/2021 Discontinued (Course of therapy completed) naloxone hydrochloride 40 mg/ml nasal spray (20 sources) Opioid Antagonist Start: 07-03-2022 naloxone 4 mg/actuation nasal spray (NARCAN) Use 1 spray in one nostril as needed for overdose. May repeat every 2 to 3 min in alternating nostrils until medical assistance is available 1 Each 0 07/03/2022 Active Start: 06-22-2021 naloxone (NARC AN) 4 mg/actuation nasal spray 1 [place] by nasal (alternating) route as directed for 1 dose. 1 spray into 1 nostril. Additional doses may be given every 2-3 minutes until emergency arrives. 1 Each 06/22/2021 Active Comment on above: 1 [place] by nasal (al ternating) route as directed for 1 dose. 1 spray into 1 nostril. Additional doses may be given every 2-3 minutes until emergency arrives. Use 1 spray in one n ostril as needed for overdose. May repeat every 2 to 3 min in alternating nostrils until medical assistance is available ondansetron 4 mg disintegrating oral tablet (15 sources) Serotonin-3 Receptor Antagonist Start: 07-23-20 End: 11-24-19 take 1 tablet by mouth every eight hours as needed for nausea and nausea ondansetron orally disintegrating (ZOFRAN ODT) 4 mg disintegrating tablet Indications: Nausea Take 1 tablet by mouth every 8 hours as needed for nausea/vomiting. 10 tablet 0 11/24/2023 Active Start: 12-26-2021 End: 03-04-2022 take 1 tablet by mouth every six hours as needed for nausea ondansetron orally disintegrating (ZOFRAN ODT) 4 mg disintegrating tablet Indications: Vomiting and diarrhea Take 1 tablet by mouth every 6 hours as needed for nausea/vomiting. 10 tablet 1 12/26/2021 03/04/2022 Discontinued Start: 12-23-2021 End: 07-23-2023 take 1 tablet by mouth every twelve hours as needed ondansetron orally disintegrating (ZOFRAN ODT) 4 mg disintegrating tablet Take 1 tablet by mouth every 12 hours as needed for nausea/vomiting for up to 4 days. 8 tablet 12/23/2021 07/23/2023 Discontinued Comment on above: Take 1 tablet by maryellen th every 12 hours as needed for nausea/vomiting for up to 4 days. Take 1 tablet by maryellen th every 6 hours as needed for nausea/vomiting. Take 1 tablet by maryellen th every 8 hours as needed for nausea/vomiting. microencapsulated potassium chloride 20 meq extended release oral tablet (20 sources) Start: End: take 1 tablet by mouth three times daily potassium chloride ER (K-DUR, KLOR-CON) 20 mEq tablet Indications: Hypokalemia Take 1 tablet by mouth three times daily. 270 tablet 1 07/03/2022 06/12/2023 Discontinued (Other) Comment on above: Take 1 tablet by maryellen th three times daily. ramelteon 8 mg oral tablet (1 source) Melatonin Receptor Agonist Start: take 1 tablet by mouth once daily at bedtime ramelteon (ROZEREM) 8 mg tablet Take 1 tablet by mouth daily at bedtime. 30 tablet 2 05/15/2022 Active Comment on above: Take 1 tablet by maryellen th daily at bedtime. tiZANidine 4 mg oral tablet (20 sources) Central alpha-2 Adrenergic Agonist Start: End: take 1 tablet by mouth four times daily Tizanidine 4 mg tablet Discontinued 4 mg PO 4 TIMES DAILY June 14, 2022 12:00am June 26, 2022 7:49pm Start: 09-14-2021 End: 05-09-2023 take 2 tablets by mouth every six hours as needed for muscle spasms tiZANidine (ZANAFLEX) 4 mg tablet Indications: Fibromyalgia , Muscle spasm Take 2 tablets by mouth every 6 hours as needed (muscle spasms). 240 tablet 1 12/04/2021 03/06/2022 Discontinued Start: 12-17-2020 End: 06-20-2021 take 2 tablets by mouth every six hours as needed for muscle spasms tiZANidine (ZANAFLEX) 4 mg tablet Indications: Muscle spasm , Fibromyalgia Take 2 tablets by mouth every 6 hours as needed (muscle spasms). 240 tablet 5 12/17/2020 06/20/2021 Discontinued Comment on above: Take 2 tablets by mo uth every 6 hours as needed (muscle spasms). topiramate 100 mg oral tablet (20 sources) Start: 09-13-2023 take 2 tablets by mouth twice daily topiramate (TOPAMAX) 100 mg tablet Indications: Recurrent major depression in partial remission (HCC) Take 2 tablets by mouth two times a day. 120 tablet 0 09/13/2023 Active Start: 02-12-2023 End: 09-10-2023 take 2 tablets by mouth twice daily topiramate (TOPAMAX) 100 mg tablet Indications: Recurrent major depression in partial remission (HCC) Take 2 tablets by mouth twice daily. 360 tablet 1 02/12/2023 09/10/2023 Discontinued Start: 09-14-2021 End: 07-03-2022 take 2 tablets by mouth twice daily topiramate (TOPAMAX) 100 mg tablet Take 2 tablets by mouth twice daily. 120 tablet 2 09/14/2021 04/30/2022 Discontinued Start: 06-28-2013 End: 06-20-2021 take 2 tablets by mouth twice daily topiramate (TOPAMAX) 100 mg tablet Take 2 tablets by mouth twice daily. 120 tablet 11 05/30/2020 06/20/2021 Discontinued Start: 06-28-2013 take 200 mg by mouth twice daily Topiramate Active 200 MG PO TWICE A DAY June 27, 2013 11:00pm Comment on above: Take 2 tablets by mo uth twice daily. Take 2 tablets by mo uth two times a day. vitamin b12 1 mg/ml injectable solution (16 sources) Vitamin B12 Start: 06-07-20 inject 1 mL by subcutaneous injection every month cyanocobalamin 1,000 mcg/mL Indications: B12 deficiency Inject 1 mL subcutaneously once every month. 1 mL 12 06/07/2023 Active Start: 06-06-2023 End: 06-07-2023 cyanocobalamin 1,000 mcg inj ection Start: 06-14-2022 End: 06-14-2022 take 1 tablet by mouth once daily Cyanocobalamin (Vitamin B-12) 2,000 mcg tablet Discontinued 2000 ug PO DAILY 1 June 14, 2022 12:00am June 14, 2022 5:00pm Comment on above: Inject 1 mL subcutan eously once every month. Zinc (20 sources) Start: End: take 1 tablet by mouth once daily Zinc 50 mg tab Take 1 tablet by mouth once daily. 90 tablet 3 11/28/2021 06/06/2023 Discontinued Start: 11-28-2021 take 1 tablet by maryellen th once daily Zinc 50 mg tab Take 1 tablet by mouth once daily. 90 tablet 3 11/28/2021 Active Start: 12-03-2017 End: 09-14-2021 take 1 tablet by mouth every week Zinc 50 mg tab Take 1 tablet by mouth once each week. 12 tablet 3 12/03/2017 09/14/2021 Discontinued Comment on above: Take 1 tablet by maryellen th once daily. zinc sulfate 220 mg oral tablet (17 sources) Start: 02-11-2023 End: 06-06-2023 take 0.2273 tablet by mouth once daily Zinc Sulfate 50 mg zinc (220 mg) tab Take 0.2273 tablets by mouth once daily. 30 tablet 5 02/11/2023 06/06/2023 Discontinued Comment on above: Take 0.2273 tablets by mouth once daily. Take 1 tablet by maryellen th once daily. zolpidem tartrate 10 mg oral tablet (20 sources) gamma-Aminobutyri c Acid-ergic Agonist Start: 09-14-2021 take 1 tablet by mouth every 30 days at bedtime as needed zolpidem (AMBIEN) 5 mg tablet Indications: Insomnia secondary to anxiety Take 1 tablet by mouth at bedtime as needed for sedation for up to 30 days. 30 tablet 2 09/14/2021 Active Start: 06-20-2021 End: 12-26-2021 zolpidem (AMBIEN) 5 mg table t Indications: Chronic insomnia Alternate 1 tab every other day with 2 tabs as needed for sleep (weaning to 5mg qHS) 30 tablet 5 06/20/2021 12/26/2021 Discontinued (Duplicate Entry) Start: 06-29-2013 End: 06-14-2022 take 1 tablet by mouth every 30 days at bedtime as needed, then take 0.5 tablet by mouth once daily at bedtime as needed zolpidem (AMBIEN) 10 mg Indications: Chronic insomnia Take 1 tablet by mouth at bedtime as needed (insomnia) for up to 30 days. Try to wean dose from whole to 1/2 tab qHS gradually 30 tablet 2 01/13/2021 04/13/2021 Discontinued Start: 06-29-2013 End: 06-24-2022 take 1 tablet by mouth at bedtime as needed zolpidem (AMBIEN) 10 mg Indications: Chronic insomnia Take 1 tablet by mouth at bedtime as needed (insomnia) for up to 180 days. 20 tablet 5 11/02/2021 12/26/2021 Discontinued (Duplicate Entry) Comment on above: Take 1 tablet by maryellen th at bedtime as needed (insomnia) for up to 180 days. Alternate 1 tab ever y other day with 2 tabs as needed for sleep (weaning to 5mg qHS) Take 1 tablet by maryellen th at bedtime as needed for sedation for up to 30 days. Take 1 tablet by maryellen th at bedtime as needed. Problems Active Problems Problem Classification Problem Date Documented Da te Episodic/Chronic Anxiety disorders (20 sources) Insomnia disorder related to another mental disorder; Translations: [Anxiety disorder, unspecified] Onset: 6 09-29-2015 Chronic Asthma (20 sources) Mild intermittent asthma; Translations: [Mild intermittent asthma, uncomplicated] Onset: 6 Resolved: 1 09-29-2015 Chronic Deficiency and other anemia (9 sources) Iron deficiency anemia; Translations: [Iron deficiency anemia, unspecified] Onset: 0 Resolved: 8 Episodic Diabetes mellitus with complications (4 sources) Secondary diabetes mellitus; Translations: [Diabetes mellitus due to underlying condition with hyperglycemia] 02-05-2019 Chronic Disorders of lipid metabolism (20 sources) Hyperlipidemia; Translations: [Hyperlipidemia, unspecified] Onset: 0 09-29-2015 Chronic Esophageal disorders (20 sources) Gastroesophageal reflux disease; Translations: [Gastro-esophageal reflux disease without esophagitis] Onset: 7 01-14-2017 Chronic Essential hypertension (4 sources) Hypertensive disorder; Translations: [Essential (primary) hypertension] 02-05-2019 Chronic Genitourinary symptoms and ill-defined conditions (1 source) Decreased urine output; Translations: [Anuria and oliguria] Episodic Headache; including migraine (20 sources) Migraine without aura, not refractory ; Translations: [Chronic migraine without aura, not intractable, without status migrainosus] Onset: 6 Resolved: 1 09-29-2015 Chronic Headache; including migraine (1 source) Headache; Translations: [Headache, unspecified headache type] 07-04-2023 Episodic Headache; including migraine (1 source) Headache; including migraine; Translations: [Headache, unspecified headache type] Onset: 3 Hepatitis (20 sources) Nonalcoholic steatohepatitis; Translations: [Nonalcoholic steatohepatitis (SANDY)] Onset: 9 11-11-2018 Chronic Malaise and fatigue (5 sources) Asthenia; Translations: [Other malaise] Episodic Miscellaneous mental health disorders (4 sources) Chronic insomnia; Translations: [Psychophysiologic insomnia] Chronic Mood disorders (20 sources) Recurrent major depression in partial remission; Translations: [Major depressive disorder, recurrent, in partial remission] Onset: 0 02-29-2020 Chronic Nausea and vomiting (2 sources) Diarrhea and vomiting; Translations: [Vomiting, unspecified] Episodic Nutritional deficiencies (20 sources) Vitamin D deficiency; Translations: [Vitamin D deficiency, unspecified] Onset: 3 09-16-2012 Chronic Nutritional deficiencies (20 sources) Cobalamin deficiency; Translations: [Deficiency of other specified B group vitamins] Onset: 8 11-22-2017 Episodic Osteoarthritis (20 sources) Osteoarthritis of left knee joint; Translations: [Unilateral primary osteoarthritis, left knee] Onset: 6 Chronic Osteoporosis (20 sources) Osteoporosis; Translations: [Age-related osteoporosis without current pathological fracture] Onset: 2 Chronic Other bone disease and musculoskeletal deformities (1 source) Disorder of bone; Translations: [Disorder of bone, unspecified] Episodic Other connective tissue disease (20 sources) Fibromyalgia; Translations: [Fibromyalgia] Onset: 3 Episodic Other connective tissue disease (10 sources) Spasm; Translations: [Other muscle spasm] Episodic Other connective tissue disease (4 sources) Pain in lower limb; Translations: [Pain in right leg] 11-11-2017 Episodic Other connective tissue disease (5 sources) Fibromyalgia; Translations: [Myalgia and myositis, unspecified] Episodic Other gastrointestinal disorders (20 sources) Irritable bowel syndrome; Translations: [Irritable bowel syndrome without diarrhea] 08-01-2005 Chronic Other gastrointestinal disorders (20 sources) Malabsorption - iron; Translations: [Intestinal malabsorption, unspecified] Onset: 8 12-02-2017 Chronic Other injuries and conditions due to external causes (1 source) Injury of right knee; Translations: [Unspecified injury of right lower leg, initial encounter] Episodic Other nervous system disorders (20 sources) Meralgia paresthetica of right leg; Translations: [Meralgia paresthetica, right lower limb] Onset: 7 07-15-2017 Chronic Other nervous system disorders (20 sources) Idiopathic peripheral neuropathy; Translations: [Hereditary and idiopathic neuropathy, unspecified] Onset: 9 07-06-2019 Chronic Other nervous system disorders (2 sources) Peripheral neuropathic pain; Translations: [Unspecified mononeuropathy of bilateral lower limbs] 08-12-2022 Chronic Other non-traumatic joint disorders (4 sources) Pain in right knee; Translations: [Pain in joint, lower leg] Onset: 3 Episodic Other non-traumatic joint disorders (1 source) Effusion of right knee joint; Translations: [Effusion, right knee] Episodic Other non-traumatic joint disorders (4 sources) Effusion of joint of left knee; Translations: [Effusion, left knee] 05-26-2021 Episodic Other nutritional; endocrine; and metabolic disorders (20 sources) Morbid obesity; Translations: [Morbid (severe) obesity due to excess calories] Onset: 6 12-15-2015 Chronic Other nutritional; endocrine; and metabolic disorders (4 sources) Hypocalcemia; Translations: [Hypocalcemia] 06-22-2022 Chronic Other nutritional; endocrine; and metabolic disorders (1 source) Hypocalcemia; Translations: [Hypocalcemia] Chronic Other nutritional; endocrine; and metabolic disorders (4 sources) H/O: hypothyroidism; Translations: [Personal history of other endocrine, nutritional and metabolic disease] 02-05-2019 Episodic Other screening for suspected conditions (not mental disorders or infectious disease) (1 source) MRI scan abnormal; Translations: [Abnormal findings on diagnostic imaging of other specified body structures] 07-05-2023 Chronic Other skin disorders (1 source) Callosity; Translations: [Corns and callosities] Episodic Other upper respiratory infections (2 sources) Acute upper respiratory infection; Translations: [Acute upper respiratory infection, unspecified] Episodic Residual codes; unclassified (1 source) Other specified personal risk factors, not elsewhere classified; Translations: [Other specified personal history presenting hazards to health] Episodic Residual codes; unclassified (4 sources) Pain; Translations: [Pain, unspecified] 06-14-2022 Episodic Residual codes; unclassified (3 sources) Pain, unspecified; Translations: [Generalized pain] Episodic Residual codes; unclassified (3 sources) Insomnia; Translations: [Insomnia, unspecified] 06-14-2022 Episodic Residual codes; unclassified (2 sources) Insomnia, unspecified; Translations: [Insomnia, unspecified] Episodic Residual codes; unclassified (1 source) Confusional state; Translations: [Disorientation, unspecified] 07-04-2023 Episodic Residual codes; unclassified (1 source) Forgetful; Translations: [Other general symptoms and signs] 07-04-2023 Episodic Rheumatoid arthritis and related disease (20 sources) Rheumatoid arthritis of multiple joints; Translations: [Rheumatoid arthritis, unspecified] Onset: 3 Chronic Spondylosis; intervertebral disc disorders; other back problems (20 sources) Lumbar spondylosis; Translations: [Spondylosis without myelopathy or radiculopathy, lumbar region] Onset: 7 Chronic Spondylosis; intervertebral disc disorders; other back problems (20 sources) Spinal stenosis of lumbar region; Translations: [Spinal stenosis, lumbar region with neurogenic claudication] Onset: 7 Resolved: 8 06-22-2021 Episodic Sprains and strains (1 source) Sprain of lateral collateral ligament of knee; Translations: [Sprain of lateral collateral ligament of right knee, initial encounter] Episodic Thyroid disorders (20 sources) Hypothyroidism; Translations: [Hypothyroidism, unspecified] Onset: 6 09-29-2015 Chronic Unclassified (8 sources) Transformed migraine; Translations: [Chronic migraine] Urinary tract infections (5 sources) Urinary tract infectious disease; Translations: [Urinary tract infection, site not specified] 12-19-2019 Episodic Past or Other Problems Problem Classification Problem Date Documented Da te Episodic/Chronic Abdominal hernia (3 sources) Incisional hernia; Translations: [Incisional hernia without obstruction or gangrene] Onset: 4 Resolved: 1 10-22-2020 Episodic Abdominal pain (3 sources) Abdominal pain; Translations: [Unspecified abdominal pain] Onset: 3 Resolved: 6 09-29-2015 Episodic Allergic reactions (20 sources) Photosensitivity; Translations: [Other specified acute skin changes due to ultraviolet radiation] Onset: 0 10-10-2009 Episodic Complications of surgical procedures or medical care (3 sources) Post gastrointestinal tract surgery hypoglycemia; Translations: [Postsurgical malabsorption, not elsewhere classified] Onset: 4 Resolved: 6 09-29-2015 Chronic Deficiency and other anemia (20 sources) Anemia; Translations: [Anemia, unspecified] Onset: 7 08-14-2017 Episodic Deficiency and other anemia (4 sources) Iron deficiency anemia, unspecified; Translations: [Iron deficiency anemia, unspecified] Onset: 7 Episodic Diabetes mellitus without complication (6 sources) Diabetes mellitus; Translations: [Type 2 diabetes mellitus without complications] Onset: 0 Resolved: 7 10-14-2014 Chronic Diabetes mellitus without complication (1 source) Other abnormal glucose; Translations: [Elevated hemoglobin A1c] Onset: 3 Episodic Fluid and electrolyte disorders (3 sources) Hypokalemia; Translations: [Hypokalemia] Onset: 3 Episodic Hemorrhoids (3 sources) Bleeding hemorrhoids; Translations: [Unspecified hemorrhoids] Onset: 7 Resolved: 8 06-19-2018 Episodic Nonspecific chest pain (3 sources) Chest wall pain; Translations: [Other chest pain] Onset: 7 Resolved: 8 06-19-2018 Episodic Other aftercare (20 sources) Prescribed medication regimen behavior finding; 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] Onset: 8 Episodic Other bone disease and musculoskeletal deformities (1 source) Disorder of bone, unspecified; Translations: [Disorder of bone, unspecified] Onset: 3 Episodic Other bone disease and musculoskeletal deformities (3 sources) Bone pain; Translations: [Disorder of bone, unspecified] Onset: 3 Resolved: 6 09-29-2015 Episodic Other connective tissue disease (3 sources) Soft tissue lesion of shoulder region; Translations: [Bursopathy, unspecified] Onset: 7 Resolved: 6 09-29-2015 Episodic Other connective tissue disease (3 sources) Plantar fascial fibromatosis; Translations: [Plantar fascial fibromatosis] Onset: 9 Resolved: 6 09-29-2015 Episodic Other connective tissue disease (3 sources) Bursitis of right shoulder; Translations: [Bursitis of right shoulder] Onset: 9 Resolved: 1 10-22-2020 Episodic Other gastrointestinal disorders (20 sources) History of bypass of stomach; Translations: [Bariatric surgery status] Onset: 6 02-09-2016 Episodic Other gastrointestinal disorders (1 source) Bariatric surgery status; Translations: [History of gastric bypass] Onset: 6 Episodic Other gastrointestinal disorders (3 sources) Therapeutic opioid induced constipation; Translations: [Drug induced constipation] Onset: 7 Resolved: 8 06-19-2018 Episodic Other gastrointestinal disorders (3 sources) Constipation; Translations: [Constipation, unspecified] Onset: 7 Resolved: 8 06-19-2018 Episodic Other injuries and conditions due to external causes (1 source) Unspecified injury of unspecified foot, initial encounter; Translations: [Injury of great toenail] Onset: 3 Episodic Other nervous system disorders (3 sources) Right leg peripheral neuropathy; Translations: [Meralgia paresthetica, right lower limb] Onset: 8 Resolved: 1 10-22-2020 Chronic Other non-traumatic joint disorders (1 source) Pain in left knee; Translations: [Acute pain of both knees] Onset: 3 Episodic Other screening for suspected conditions (not mental disorders or infectious disease) (20 sources) Patient encounter status; Translations: [Encounter for screening mammogram for malignant neoplasm of breast] Onset: 2 Episodic Residual codes; unclassified (1 source) Disorientation, unspecified; Translations: [Confusion] Onset: 3 Episodic Residual codes; unclassified (1 source) Other general symptoms and signs; Translations: [Forgetfulness] Onset: 3 Episodic Results Test Name Value Interpretation Reference Range Facility Knee 1 or 2 [facility] 02-12-20 Knee 1 or 2 Views [facility] [address] [place] [address] Knee 1 or 2 Views MR#: [id number] Acct: [id number] Name: PAULINA MEI Rep #: [id number] : 1965 F 59 From: Ta han MD PCP: TARUN KhalilC Status: REG CLI Study: Knee 1 or 2 Views Date of Exam: 02/11/25 Exam# [id number] Ordering Dr: Efren Lynn MD PROCEDURE: KNEE 1 OR 2 VIEWS 02/11/2025 REASON FOR EXAM: OA TECHNIQUE: 2 view(s) of the right knee COMPARISON: None. FINDINGS: Moderate tricompartmental changes of degenerative joint disease, more prominent in the medial tibiofemoral compartment. Mild osteopenia of the visualized bones. Degenerative joint disease. No fracture or dislocation is seen. No lytic or blastic bone lesion is noted. RAD/Knee 1 or 2 Views IMPRESSION: No evidence for acute abnormality. Reading Location: [place] [id number] CC: ASSEMBLY MACHINE OFFBEARER-C Sena Garibay; Dr. Efren Lynn MD [facility] Instructor: Signed Normal [facility] Knee 1 or 2 Views [facility] [address], [place] [id number] Knee 1 or 2 Views MR#: [id number] Acct: [id number] Name: PAULINA MEI Rep #: [id number] : 1965 F 59 From: Ta han MD PCP: LEROY Khalil Status: REG CLI Study: Knee 1 or 2 Views Date of Exam: 02/11/25 Exam# [id number] Ordering Dr: Efren Lynn MD PROCEDURE: KNEE 1 OR 2 VIEWS 02/11/2025 REASON FOR EXAM: OA TECHNIQUE: 2 view(s) of the left knee COMPARISON: 05/18/2021. FINDINGS: Moderate tricompartmental changes of degenerative joint disease, more prominent in the medial tibiofemoral compartment. Mild osteopenia of the visualized bones. Degenerative joint disease. No fracture or dislocation is seen. No lytic or blastic bone lesion is noted. RAD/Knee 1 or 2 Views IMPRESSION: Moderate tricompartmental changes of degenerative joint disease, increased. Reading Location: [place] [address] CC: ASSEMBLY MACHINE OFFBEARER-C Sena Garibay; Dr. Efren Lynn MD [facility] Care[facility] Instructor: Signed Normal [facility] Lumbar Spine 2 or 3 [facility] 02-11-2025 Lumbar Spine 2 or 3 Views [facility] [facility] [address] [place], [place] [address] Lumbar Spine 2 or 3 Views MR#: [id number] Acct: [id number] Name: PAULINA MEI Rep #: [id number] : 1965 F 59 From: Ta han MD PCP: LEROY Khalil Status: REG CLI Study: Lumbar Spine 2 or 3 Views Date of Exam: Exam# [id number] Ordering Dr: Efren Lynn MD PROCEDURE: LUMBAR SPINE 2 OR 3 VIEWS 02/11/2025 REASON FOR EXAM: PAIN TECHNIQUE: 2 view(s) of the lumbar spine COMPARISON: None. FINDINGS: Mild degenerative levoscoliosis apex at L3. There are diffuse spondylotic changes. Findings are demonstrated to by diffuse disc space narrowing, osteophyte formation and degenerative endplate sclerosis. There is diffuse facet joint arthropathy with secondary bilateral neural foramina narrowing. No fracture or dislocation is seen. No aggressive lytic or blastic bony lesion is noted. Metallic clips are folds in the right upper quadrant. Mild diffuse gaseous dilatation of the bowels. RAD/Lumbar Spine 2 or 3 Views IMPRESSION: Spondylosis. [facility] CC: LEROY Garibay; Dr. Efren Lynn MD [facility] Instructor: Signed Normal [facility] CBC W/Diff, Automatedon 04-03 Absolute Lymph 1.30 X10 3/uL Normal 0.83-4.51 [facility] Comment on above: Performed By: #### L 500.4050, L501.9520, L100.0100, L500.4100, L503.0105, L506.0400, L506.1000 #### [facility] [address] [place], [address] Absolute Neut 2.8 X10 3/uL Normal 2.0-7.7 [facility] Comment on above: Performed By: #### L 500.4050, L501.9520, L100.0100, L500.4100, L503.0105, L506.0400, L506.1000 #### [facility] [address] [place], [address] Basophils/100 WBC (Bld) 0.7 % Normal 0-1 [facility] Comment on above: Performed By: #### L 500.4050, L501.9520, L100.0100, L500.4100, L503.0105, L506.0400, L506.1000 #### [facility] [address] [place], [address] Eosinophils/100 WBC (Bld) 1.5 % Normal 0-5 [facility] Comment on above: Performed By: #### L 500.4050, L501.9520, L100.0100, L500.4100, L503.0105, L506.0400, L506.1000 #### [facility] [address] [place], [address] Erythrocyte distribution width (RBC) [Ratio] 17.8 % High 11.6-14.6 [facility] Comment on above: Performed By: #### L 500.4050, L501.9520, L100.0100, L500.4100, L503.0105, L506.0400, L506.1000 #### [facility] [address] [place], [address] Hematocrit (Bld) [Volume fraction] 36.0 % Low 37-47 [facility] Comment on above: Performed By: #### L 500.4050, L501.9520, L100.0100, L500.4100, L503.0105, L506.0400, L506.1000 #### [facility] [address] [place], [address] Hemoglobin (Bld) [Mass/Vol] 10.3 g/dL Low 12.0-15.0 [facility] Comment on above: Performed By: #### L 500.4050, L501.9520, L100.0100, L500.4100, L503.0105, L506.0400, L506.1000 #### [facility] [address] [place], [address] IG% 0.200 Normal 0.0-0.9 [facility] Comment on above: Result Comment: IG% - Immature Granulocytes (promyelocytes, myelocytes and metamyelocytes) > 1% indicates that a LEFT SHIFT is Present. Performed By: #### L 500.4050, L501.9520, L100.0100, L500.4100, L503.0105, L506.0400, L506.1000 #### [facility] [address] [place], [address] Lymphocytes/100 WBC (Bld) 28.7 % Normal 19-41 [facility] Comment on above: Performed By: #### L 500.4050, L501.9520, L100.0100, L500.4100, L503.0105, L506.0400, L506.1000 #### [facility] [address] [place], [address] MCH (RBC) [Entitic mass] 22.9 pg Low 27.0-32.0 [facility] Comment on above: Performed By: #### L 500.4050, L501.9520, L100.0100, L500.4100, L503.0105, L506.0400, L506.1000 #### [facility] [address] [place], [address] MCHC (RBC) [Mass/Vol] 28.6 g/dL Low 32-36 [facility] Comment on above: Performed By: #### L 500.4050, L501.9520, L100.0100, L500.4100, L503.0105, L506.0400, L506.1000 #### [facility] [address] [place], [address] MCV (RBC) [Entitic vol] 80.0 fL Low 81-99 [facility] Comment on above: Performed By: #### L 500.4050, L501.9520, L100.0100, L500.4100, L503.0105, L506.0400, L506.1000 #### [facility] [address] [place], [address] Monocytes/100 WBC (Bld) 6.8 % Normal 0-10 [facility] Comment on above: Performed By: #### L 500.4050, L501.9520, L100.0100, L500.4100, L503.0105, L506.0400, L506.1000 #### [facility] [address] [place], [address] Neutrophils/100 WBC (Bld) 62.1 % Normal 47-70 [facility] Comment on above: Performed By: #### L 500.4050, L501.9520, L100.0100, L500.4100, L503.0105, L506.0400, L506.1000 #### [facility] [address] [place], [address] Nucleated RBC (Bld) [#/Vol] 0 10*3/uL Normal 0-5 [facility] Comment on above: Performed By: #### L 500.4050, L501.9520, L100.0100, L500.4100, L503.0105, L506.0400, L506.1000 #### [facility] [address] [place], [address] Platelet mean volume (Bld) [Entitic vol] 10.5 fL Normal 6.2-12.0 [facility] Comment on above: Performed By: #### L 500.4050, L501.9520, L100.0100, L500.4100, L503.0105, L506.0400, L506.1000 #### [facility] [address] [place], [address] Platelets (Bld) [#/Vol] 283 10*3/uL Normal 150-450 [facility] Comment on above: Performed By: #### L 500.4050, L501.9520, L100.0100, L500.4100, L503.0105, L506.0400, L506.1000 #### [facility] [address] [place], [address] RBC (Bld) [#/Vol] 4.50 10*6/uL Normal 4.2-5.4 [facility] Comment on above: Performed By: #### L 500.4050, L501.9520, L100.0100, L500.4100, L503.0105, L506.0400, L506.1000 #### [facility] [address] [place], [address] RDW SD 51.4 fl High 35.1-43.9 [facility] Comment on above: Performed By: #### L 500.4050, L501.9520, L100.0100, L500.4100, L503.0105, L506.0400, L506.1000 #### [facility] [address] [place], [address] WBC (Bld) [#/Vol] 4.5 10*3/uL Normal 4.4-11.0 [facility] Comment on above: Performed By: #### L 500.4050, L501.9520, L100.0100, L500.4100, L503.0105, L506.0400, L506.1000 #### [facility] [address] [place], [address] Comprehensive Metabolic Prof [facility] 04-27-2024 Albumin [Mass/Vol] 2.8 g/dL Low 3.2-5.0 [facility] Comment on above: Performed By: #### L 500.4050, L501.9520, L100.0100, L500.4100, L503.0105, L506.0400, L506.1000 #### [facility] [address] [place], [address] Albumin/Globulin [Mass ratio] 0.7 {ratio} Low 0.9-2.4 [facility] Comment on above: Performed By: #### L 500.4050, L501.9520, L100.0100, L500.4100, L503.0105, L506.0400, L506.1000 #### [facility] [address] [place], [address] ALK P 202 U/L High 45-117 [facility] Comment on above: Performed By: #### L 500.4050, L501.9520, L100.0100, L500.4100, L503.0105, L506.0400, L506.1000 #### [facility] [address] [place], [address] ALT [Catalytic activity/Vol] 20 U/L Normal 13-56 [facility] Comment on above: Performed By: #### L 500.4050, L501.9520, L100.0100, L500.4100, L503.0105, L506.0400, L506.1000 #### [facility] [address] [place], [address] AST [Catalytic activity/Vol] 12 U/L Low 15-37 [facility] Comment on above: Performed By: #### L 500.4050, L501.9520, L100.0100, L500.4100, L503.0105, L506.0400, L506.1000 #### [facility] [address] [place], [address] Bilirubin [Mass/Vol] 0.20 mg/dL Normal 0.20-1.00 [facility] Comment on above: Result Comment: For patients on eltrombopag therapy, use of Dimension [place] TBIL is not recommended. Performed By: #### L 500.4050, L501.9520, L100.0100, L500.4100, L503.0105, L506.0400, L506.1000 #### [facility] [address] [place], [address] BUN/CRE 18.7 RATIO Normal 10-20 [facility] Comment on above: Performed By: #### L 500.4050, L501.9520, L100.0100, L500.4100, L503.0105, L506.0400, L506.1000 #### [facility] [address] [place], [address] CA,Total 8.4 mg/dL Low 8.5-10.1 [facility] Comment on above: Performed By: #### L 500.4050, L501.9520, L100.0100, L500.4100, L503.0105, L506.0400, L506.1000 #### [facility] [address] [place], [address] Chloride [Moles/Vol] 115 mmol/L High 98-107 [facility] Comment on above: Performed By: #### L 500.4050, L501.9520, L100.0100, L500.4100, L503.0105, L506.0400, L506.1000 #### [facility] [address] [place], [address] CO2 [Moles/Vol] 19.0 mmol/L Low 21.0-32.0 [facility] Comment on above: Performed By: #### L 500.4050, L501.9520, L100.0100, L500.4100, L503.0105, L506.0400, L506.1000 #### [facility] [address] [place], [address] Creatinine [Mass/Vol] 0.53 mg/dL Low 0.55-1.02 [facility] Comment on above: Result Comment: The validity of the calculated GFR GFRAA in patients over 70 years has not been determined. Clinical correlation is essential. Performed By: #### L 500.4050, L501.9520, L100.0100, L500.4100, L503.0105, L506.0400, L506.1000 #### [facility] [address] [place], [address] EST GFR - AA 151 mL/min Normal >60 [facility] Comment on above: Result Comment: Afri can Tanzanian GFR Calc Performed By: #### L 500.4050, L501.9520, L100.0100, L500.4100, L503.0105, L506.0400, L506.1000 #### [facility] [address] [place], [address] GAP 7 Normal 5-15 [facility] Comment on above: Performed By: #### L 500.4050, L501.9520, L100.0100, L500.4100, L503.0105, L506.0400, L506.1000 #### [facility] [address] [place], [address] GFR/1.73 sq M.predicted among non-blacks MDRD (S/P/Bld) [Vol rate/Area] 125 mL/min/{1.73_m2} Normal >60 [facility] Comment on above: Result Comment: Non- GFR Calc Performed By: #### L 500.4050, L501.9520, L100.0100, L500.4100, L503.0105, L506.0400, L506.1000 #### [facility] [address] [place], [address] Globulin (S) [Mass/Vol] 4.0 g/dL Normal 2.2-4.2 [facility] Comment on above: Performed By: #### L 500.4050, L501.9520, L100.0100, L500.4100, L503.0105, L506.0400, L506.1000 #### [facility] [address] [place], [address] Glucose [Mass/Vol] 95 mg/dL Normal 74-106 [facility] Comment on above: Performed By: #### L 500.4050, L501.9520, L100.0100, L500.4100, L503.0105, L506.0400, L506.1000 #### [facility] [address] [place], [address] Potassium [Moles/Vol] 3.5 mmol/L Normal 3.5-5.1 [facility] Comment on above: Performed By: #### L 500.4050, L501.9520, L100.0100, L500.4100, L503.0105, L506.0400, L506.1000 #### [facility] [address] [place], [address] Sodium [Moles/Vol] 141 mmol/L Normal 136-145 [facility] Comment on above: Performed By: #### L 500.4050, L501.9520, L100.0100, L500.4100, L503.0105, L506.0400, L506.1000 #### [facility] [address] [place], [address] T PROT 6.8 g/dL Normal 6.4-8.2 [facility] Comment on above: Performed By: #### L 500.4050, L501.9520, L100.0100, L500.4100, L503.0105, L506.0400, L506.1000 #### [facility] [address] [place], [address] Urea nitrogen [Mass/Vol] 10 mg/dL Normal 7-18 [facility] Comment on above: Performed By: #### L 500.4050, L501.9520, L100.0100, L500.4100, L503.0105, L506.0400, L506.1000 #### [facility] [address] [place], [address] Lipid Profileon 04-27-2024 Cholesterol [Mass/Vol] 155 mg/dL Normal 200 [facility] Comment on above: Result Comment: <200 mg/dL Desirable 200-240 mg/dL Borderline >240 mg/dL High Risk Performed By: #### L 500.4050, L501.9520, L100.0100, L500.4100, L503.0105, L506.0400, L506.1000 #### [facility] [address] [place], [address] Cholesterol in HDL [Mass/Vol] 51 mg/dL Normal [facility] Comment on above: Result Comment: The drugs N-Acetylcysteine and Metamizole may falsely depress this assay. Reference Range HDL <40 mg/dL Low HDL Cholesterol HDL >or= 60 mg/dL High HDL Cholesterol Performed By: #### L 500.4050, L501.9520, L100.0100, L500.4100, L503.0105, L506.0400, L506.1000 #### [facility] [address] [place], [address] Cholesterol in LDL [Mass/Vol] 87 mg/dL Normal 0-130 [facility] Comment on above: Performed By: #### L 500.4050, L501.9520, L100.0100, L500.4100, L503.0105, L506.0400, L506.1000 #### [facility] [address] [place], [address] Cholesterol in VLDL [Mass/Vol] 17 mg/dL Normal 5-40 [facility] Comment on above: Performed By: #### L 500.4050, L501.9520, L100.0100, L500.4100, L503.0105, L506.0400, L506.1000 #### [facility] [address] [place], [address] Triglyceride [Mass/Vol] 87 mg/dL Normal [facility] Comment on above: Result Comment: The drugs N-Acetylcysteine and Metamizole may falsely depress this assay. Serum Triglycerides Reference Interval Normal <150 mg/dL Borderline high 150 - 199 mg/dL High 200 - 499 mg/dL Very High > or = 500 mg/dL Performed By: #### L 500.4050, L501.9520, L100.0100, L500.4100, L503.0105, L506.0400, L506.1000 #### [facility] [address] [place], [address] T4 Free Directon 04-27-2024 T4 FREE DIRECT 0.92 ng/dL Normal 0.76-1.46 [facility] Comment on above: Performed By: #### L 500.4050, L501.9520, L100.0100, L500.4100, L503.0105, L506.0400, L506.1000 #### [facility] [address] [place], [address] Thyroid Stim Hormone (TSH)on 04-27-2024 TSH 5.860 uIU/mL High 0.358-3.740 [facility] Comment on above: Performed By: #### L 500.4050, L501.9520, L100.0100, L500.4100, L503.0105, L506.0400, L506.1000 #### [facility] [address] [place], [address] Vitamin B12on 04-27-2024 Cobalamin (Vitamin B12) [Mass/Vol] 259 pg/mL Normal 211-911 [facility] Comment on above: Performed By: #### L 500.4050, L501.9520, L100.0100, L500.4100, L503.0105, L506.0400, L506.1000 #### [facility] [address] [place], [address] Vitamin D,25 Hydroxyon 04-27 Vitamin D 25-OH 6.2 ng/mL Normal [facility] Comment on above: Result Comment: Sharonda min D 25(OH) Status Range Deficiency <20 ng/mL (50nmol/L) Insufficiency 20 - 30 ng/mL (50 - 75 nmol/L) Sufficiency 30 - 100 ng/mL (75 - 250 nmol/L) Toxicity >100 ng/mL (>250 nmol/L) Performed By: #### L 500.4050, L501.9520, L100.0100, L500.4100, L503.0105, L506.0400, L506.1000 #### [facility] [place], [address] CNOVon 11-24-2023 [facility] MEIPAULINA Mobley ([id number]) 1965 F NFR Date Time Provider Department 11/24/23 10:30 AM ERNA KELLEY [facility] During your visit today, we recorded the following information about you: Temperature Pulse Respiration Blood pressure 97.6 degrees 96/minute 18/minute 125/84 Weight 77.6 kg Erna Kelley APRN.[employer] 11/24/2023 10:59 AM Signed CC: Patient presents with: Vomiting: Diarrhea x2 days, possible food poisoning HPI: Paulina Palmerujillo is a 58 year old female who presents to the office with complaint of diarrhea for a few days. Symptoms are staying the same. Associated symptoms includes vomiting and diarrhea. Denies fever and cough. Treatments tried include nothing so far. with no relief of symptoms. Sick contacts: unknown. History of asthma, frequent episodes of bronchitis, chronic bronchitis, bronchiectasis or COPD: No Smoker: No Seasonal/environmental allergies: No The ROS is otherwise negative. The patient's pmh, medications, allergies, and past visits are reviewed. PHYSICAL EXAM: BP 125/84 Pulse 96 Temp 36.4 ?C (97.6 ?F) Resp 18 Wt 77.6 kg (171 lb 1.2 oz) LMP 02/05/2008 SpO2 99% BMI 31.29 kg/m? General appearance: alert, cooperative, pleasant, in no acute distress Head: Normocephalic Eyes: EOM's intact, conjunctiva pink and moist, no icterus, sclera white, non-injected Heart: Negative. RRR without obvious murmur, gallop, or rubs. No ectopy. Lungs: clear to auscultation, without rales or wheeze, good air exchange Abdomen: tender generalized PAST MEDICAL HISTORY Diagnosis Date Anemia 08/14/2017 Chronic insomnia 09/09/2017 Depression 11/17/2012 Elevated liver function tests 05/22/2012 Fibromyalgia Hyperlipidemia LDL goal < 100 06/26/2010 Hypoglycemia after GI (gastrointestinal) surgery 04/30/2014 Iron deficiency anemia, unspecified Iron malabsorption 12/02/2017 Irritable bowel syndrome Migraine, unspecified, without mention of intractable migraine without mention of status migrainosus Morbid obesity due to excess calories ([facility]) 12/15/2015 Polyneuropathy in other diseases classified elsewhere ([facility]) Recurrent major depression in partial remission ([facility]) 02/29/2020 Rheumatoid arthritis(714.0) Systemic lupus erythematosus arthritis ([facility]) 03/18/2014 Unspecified asthma(493.90) Unspecified hypothyroidism Vitamin B 12 deficiency 11/22/2017 Vitamin D deficiency 09/16/2012 PAST SURGICAL HISTORY Procedure Laterality Date ARTHROSCOPY KNEE DIAGNOSTIC W/WO SYNOVIAL BX SPX Arthroscopy, knee CHOLECYSTECTOMY 1992 Cholecystectomy COLONOSCOPY 1999 ESOPHAGOGASTRODUODENOS COPY TRANSORAL DIAGNOSTIC 1994 EGD HERNIA REPAIR 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 LAPS SUPRACRV HYSTERECT 250 GM/< RMVL TUBE/OVAR 08/09 endometriosis and ovarian cysts (EDIT 03/2015 abdominal incision) PULMONARY FUNCTION TEST ALLERGIES Bactrim [Sulfamethoxazole-Trim ethoprim], Benzamycin [Erythromycin-Benzoyl Peroxide], Elavil [Amitriptyline], Environmental [Other], Guiafen-Pse [Pseudoephedrine-Guaif enesin], Humira [Adalimumab], Lodine [Etodolac], Methotrexate, Neurontin [Gabapentin], Nsaids (Non-Steroidal Anti-Inflammatory Drug), Ultram [Tramadol Hcl], Vicodin [Hydrocodone-Acetamino phen], Voltaren [Diclofenac Sodium], and Zostrix-Hp [Capsaicin] MEDICATIONS DULoxetine (CYMBALTA) 60 mg capsule Take 1 capsule by mouth two times a day. gabapentin (NEURONTIN) 600 mg tablet Take 1 tablet by mouth three times a day for 60 days. topiramate (TOPAMAX) 100 mg tablet Take 2 tablets by mouth two times a day. traZODone (DESYREL) 150 mg tablet Take 1 tablet by mouth daily at bedtime. ondansetron orally disintegrating (ZOFRAN ODT) 4 mg disintegrating tablet Take 1 tablet by mouth every 8 hours as needed for nausea/vomiting. levothyroxine (LEVOXYL) 88 mcg tablet Take 1 tablet by mouth once daily. Take on empty stomach. For Thyroid calcium carbonate 600 mg-cholecalciferol 200 units (CALCIUM 600 + D,3,) 600 mg-5 mcg (200 unit) tab Take 1 tablet by mouth two times a day. cyanocobalamin 1,000 mcg/mL Inject 1 mL subcutaneously once every month. Syringe with Needle, Disp, (MONOJECT SAFETY SYRINGES) syrg 1 Each once every month. 1 ml, 25 gauge 1/2 Zinc Sulfate 50 mg zinc (220 mg) tab Take 1 tablet by mouth once daily. cholecalciferol (VITAMIN D3) 5,000 unit tab Take 1 tablet by mouth once daily. ferrous sulfate 325 mg (65 mg iron) tablet Take 1 tablet by mouth daily with breakfast. tiZANidine (ZANAFLEX) 4 mg tablet Take 2 tablets by mouth every 6 hours as needed (muscle spasms). simethicone, chewable (MYLICON) 80 mg chewable tablet Take 1 tablet by mouth three times daily as needed. busPIRone (BUSPAR) 10 mg tablet Take 1 tablet by mouth three times daily. naloxone 4 mg/actuation nasal spray (NARCAN) Use 1 spray in one nostril as needed for overd (more content not included)... Normal [facility] COVID AND INFLUENZA A/B AND RSV NAAT, ROUTINEon 11-24-2023 SARS-CoV-2 (COVID-19) RNA NURY+probe Ql (Unsp spec) COVID 19 RESULT: Not detected The method used is RT-PCR or an equivalent NAAT method. Reference Range (the expected result in uninfected individuals): Not detected INFLUENZA A PCR: Not detected INFLUENZA B PCR: Not detected RSV PCR: Not detected Normal [facility] Comment on above: Performed By: #### C VFLRS ####[facility] LABCLIA [id number] [address] [place] 08-28-2023 EMILY Telephone (FAMPWS) SIGIFREDOPAULINA Sehn ([id number]) 1965 F NFR Date Time Provider Department 08/28/23 Jocelyn WOLFF During your visit today, we recorded the following information about you: Jocelyn Stafford RN 08/28/2023 4:21 PM Signed Patient asking if Jorge Macias Np, would put a referral in for her to see Neurologist? Reports her pain management provider suggested it. Reports pain management doctor told her there is something really bad wrong with her, and she shouldn't be left alone b/c she forgets what she is doing and other things. Reports it's b/c the vessels in her brain has restricting blood flow. Marsha Macias APRN.[place]LEY 08/28/2023 4:46 PM Signed Referral placed. Marsha Macias APRN.Rahul Watson LPN 08/28/2023 5:01 PM Signed Please assist pt with scheduling appt with Neurology. JHON Ugalde Sheena, JORDAN 08/29/2023 8:51 AM Signed 1st attempt: VM is full, sending Padcomt message for patient to call in to get scheduled with Neurology Marlen Zaldivar 08/31/2023 1:19 PM Signed 2nd attempt tried to call patient, no answer and voice mail is full Carolina Rangel 09/03/2023 9:07 AM Signed 3rd call attempt, unable to leave vm Allergies As of Date: 08/28/2023 Noted Allergy Reaction BACTRIM (SULFAMETHOXAZOLE-TRIM ETH*05/04/2005 8 - GI Upset Comments: diarrhea BENZAMYCIN (ERYTHROMYCIN-BENZOYL *08/01/2005 5 - Intolerance Comments: Gastric upset ELAVIL (AMITRIPTYLINE) 12/18/2019 8 - GI Upset Comments: nausea environmental [Other] 08/19/2007 Comments: cats GUIAFEN-PSE (PSEUDOEPHEDRINE-GUAI* 04/14/2011 6 - Diarrhea HUMIRA (ADALIMUMAB) 04/07/2013 2 - Rash Comments: hair loss LODINE (ETODOLAC) 10/11/2005 8 - GI Upset METHOTREXATE 04/05/2014 14 - Other: See Comments Comments: SANDY NEURONTIN (GABAPENTIN) 08/01/2005 NSAIDS (NON-STEROIDAL ANTI-INFLAM*07/06/2019 14 - Other: See Comments Comments: high risk of peptic ulcer disease (s/p gastric bypass) ULTRAM (TRAMADOL HCL) 08/01/2005 6 - Diarrhea VICODIN (HYDROCODONE-ACETAMINO PHE*05/04/2005 1 - Mental Status Change VOLTAREN (DICLOFENAC SODIUM) 08/29/2005 Comments: sedation ZOSTRIX-HP (CAPSAICIN) 08/23/2005 Date Reviewed: 06/04/2023 Reviewed by: Rahul Andre LPN - Fully Assessed Reason for Visit: Neurology referral request [Other] Primary Visit Diagnosis:Confusion [R41.0] Other Visit Diagnosis:Forgetfulnes s [R68.89] Order(s):CONSULT TO NEUROLOGY [9019] Order #: [id number]: 1 FUTURE Prescriptions as of 09/26/2023 - DULoxetine (CYMBALTA) 60 mg capsule Take 1 capsule by mouth two times a day. - gabapentin (NEURONTIN) 600 mg tablet Take 1 tablet by mouth three times a day for 60 days. - topiramate (TOPAMAX) 100 mg tablet Take 2 tablets by mouth two times a day. - traZODone (DESYREL) 150 mg tablet Take 1 tablet by mouth daily at bedtime. - ondansetron orally disintegrating (ZOFRAN ODT) 4 mg disintegrating tablet Take 1 tablet by mouth every 8 hours as needed for nausea/vomiting. - levothyroxine (LEVOXYL) 88 mcg tablet Take 1 tablet by mouth once daily. Take on empty stomach. For Thyroid - calcium carbonate 600 mg-cholecalciferol 200 units (CALCIUM 600 + D,3,) 600 mg-5 mcg (200 unit) tab Take 1 tablet by mouth two times a day. - cyanocobalamin 1,000 mcg/mL Inject 1 mL subcutaneously once every month. - Syringe with Needle, Disp, (MONOJECT SAFETY SYRINGES) syrg 1 Each once every month. 1 ml, 25 gauge 1/2 - Zinc Sulfate 50 mg zinc (220 mg) tab Take 1 tablet by mouth once daily. - cholecalciferol (VITAMIN D3) 5,000 unit tab Take 1 tablet by mouth once daily. - ferrous sulfate 325 mg (65 mg iron) tablet Take 1 tablet by mouth daily with breakfast. - tiZANidine (ZANAFLEX) 4 mg tablet Take 2 tablets by mouth every 6 hours as needed (muscle spasms). - simethicone, chewable (MYLICON) 80 mg chewable tablet Take 1 tablet by mouth three times daily as needed. - busPIRone (BUSPAR) 10 mg tablet Take 1 tablet by mouth three times daily. - naloxone 4 mg/actuation nasal spray (NARCAN) Use 1 spray in one nostril as needed for overdose. May repeat every 2 to 3 min in alternating nostrils until medical assistance is available - naloxone (NARCAN) 4 mg/actuation nasal spray 1 [place] by nasal (alternating) route as directed for 1 dose. 1 spray into 1 nostril. Additional doses may be given every 2-3 minutes until emergency arrives. - fluticasone (FLONASE) 50 mcg/actuation nasal spray Use 2 Sprays in each nostril once daily. Rinse mouth after use. - albuterol HFA (PROVENTIL HFA, VENTOLIN HFA) 90 mcg/actuation inhaler Inhale 2 Puffs as instructed every 4 hours as needed for Wheezing/Shortness of Breath. - blood sugar diagnostic (ONETOUCH ULTRA TEST) test strip test once/day. DX 250.00 no insulin - Blood-Glucose Meter (ONETOUCH ULTRA SYSTEM KIT) monitoring kit test one time daily dx 250.00 (more content not included)... Normal [facility] 07-23-2023 [place] Telephone (FAMPWS) MEIPAULINA Mobley ([id number]) 1965 F NFR Date Time Provider Department 07/23/23 MARSHA MACIAS During your visit today, we recorded the following information about you: Kal Marita FERREIRA 07/23/2023 1:32 PM Signed Patient calling she had diarrhea start on Saturday and Saturday night she started vomiting. Patient said the diarrhea is gone, she has emesis at times. Patient is asking for rx medication for nausea, vomiting. She is eating brat diet and if she eats to much she has emesis. Patient has no ride to come in for appt or to go to ER, she did COVID test was negative. Patient uses [facility] for her pharmacy. Please advise Marsha Macias APRN.PRESLEY 07/23/2023 4:04 PM Signed Script sent. Marsha Macias APRN.Jocelyn Root RN 07/23/2023 4:12 PM Signed Notified patient. Patient says Thankyou to provider. Allergies As of Date: 07/23/2023 Noted Allergy Reaction BACTRIM (SULFAMETHOXAZOLE-TRIM ETH*05/04/2005 8 - GI Upset Comments: diarrhea BENZAMYCIN (ERYTHROMYCIN-BENZOYL *08/01/2005 5 - Intolerance Comments: Gastric upset ELAVIL (AMITRIPTYLINE) 12/18/2019 8 - GI Upset Comments: nausea environmental [Other] 08/19/2007 Comments: cats GUIAFEN-PSE (PSEUDOEPHEDRINE-GUAI* 04/14/2011 6 - Diarrhea HUMIRA (ADALIMUMAB) 04/07/2013 2 - Rash Comments: hair loss LODINE (ETODOLAC) 10/11/2005 8 - GI Upset METHOTREXATE 04/05/2014 14 - Other: See Comments Comments: SANDY NEURONTIN (GABAPENTIN) 08/01/2005 NSAIDS (NON-STEROIDAL ANTI-INFLAM*07/06/2019 14 - Other: See Comments Comments: high risk of peptic ulcer disease (s/p gastric bypass) ULTRAM (TRAMADOL HCL) 08/01/2005 6 - Diarrhea VICODIN (HYDROCODONE-ACETAMINO PHE*05/04/2005 1 - Mental Status Change VOLTAREN (DICLOFENAC SODIUM) 08/29/2005 Comments: sedation ZOSTRIX-HP (CAPSAICIN) 08/23/2005 Date Reviewed: 06/04/2023 Reviewed by: Rahul Andre LPN - Fully Assessed Reason for Visit: Medication Request [138] Order(s):ondansetron orally disintegrating (ZOFRAN ODT) 4 mg disintegrating tabletTake 1 tablet by mouth every 8 hours as needed for nausea/vomiting.Disp: 10 tabletRfl: 0 Prescriptions as of 07/23/2023 - ondansetron orally disintegrating (ZOFRAN ODT) 4 mg disintegrating tablet Take 1 tablet by mouth every 8 hours as needed for nausea/vomiting. - levothyroxine (LEVOXYL) 88 mcg tablet Take 1 tablet by mouth once daily. Take on empty stomach. For Thyroid - calcium carbonate 600 mg-cholecalciferol 200 units (CALCIUM 600 + D,3,) 600 mg-5 mcg (200 unit) tab Take 1 tablet by mouth two times a day. - cyanocobalamin 1,000 mcg/mL Inject 1 mL subcutaneously once every month. - Syringe with Needle, Disp, (MONOJECT SAFETY SYRINGES) syrg 1 Each once every month. 1 ml, 25 gauge 1/2 - Zinc Sulfate 50 mg zinc (220 mg) tab Take 1 tablet by mouth once daily. - gabapentin (NEURONTIN) 600 mg tablet Take 1 tablet by mouth three times daily for 60 days. - DULoxetine (CYMBALTA) 60 mg capsule Take 1 capsule by mouth twice daily. - traZODone (DESYREL) 150 mg tablet Take 1 tablet by mouth daily at bedtime. - topiramate (TOPAMAX) 100 mg tablet Take 2 tablets by mouth twice daily. - cholecalciferol (VITAMIN D3) 5,000 unit tab Take 1 tablet by mouth once daily. - ferrous sulfate 325 mg (65 mg iron) tablet Take 1 tablet by mouth daily with breakfast. - tiZANidine (ZANAFLEX) 4 mg tablet Take 2 tablets by mouth every 6 hours as needed (muscle spasms). - simethicone, chewable (MYLICON) 80 mg chewable tablet Take 1 tablet by mouth three times daily as needed. - busPIRone (BUSPAR) 10 mg tablet Take 1 tablet by mouth three times daily. - naloxone 4 mg/actuation nasal spray (NARCAN) Use 1 spray in one nostril as needed for overdose. May repeat every 2 to 3 min in alternating nostrils until medical assistance is available - naloxone (NARCAN) 4 mg/actuation nasal spray 1 [place] by nasal (alternating) route as directed for 1 dose. 1 spray into 1 nostril. Additional doses may be given every 2-3 minutes until emergency arrives. - fluticasone (FLONASE) 50 mcg/actuation nasal spray Use 2 Sprays in each nostril once daily. Rinse mouth after use. - albuterol HFA (PROVENTIL HFA, VENTOLIN HFA) 90 mcg/actuation inhaler Inhale 2 Puffs as instructed every 4 hours as needed for Wheezing/Shortness of Breath. - blood sugar diagnostic (ONETOUCH ULTRA TEST) test strip test once/day. 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 [facility] PAUL[facility] ([id number]) 1965 F NFR Date Time Provider Department 07/05/23 MARSHA MACIAS During your visit today, we recorded the following information about you: Marsha Macias APRN.PRESLEY 07/05/2023 4:06 PM Addendum Can please let patient know that I received her MRI results. Her brain showed some mild microvascular changes. (Changes in the small blood vessels). It is important to maintain good control of blood pressure and cholesterol to prevent worsening. It also looked like some degeneration of the jaw bone and question is a problem with the blood supply to the jaw bones. We will need her to see an oral surgeon QUINTIN. In the meantime she should stop the fosamax (alendronate). If she develops any s/s of infection (fever/worsening pain, etc) she should proceed to the ER. Please help facilitate scheduling with oral surgery. Marsha Macias APRN.Rahul Watson 07/05/2023 4:16 PM Signed Phone call to pt, no answer, unable to leave message d/t voicemail box is full. Juanita Flowers RN 07/05/2023 4:31 PM Signed Patient calls and notified of results and providers instructions. Patient verbalizes understanding. Transferred to schedule consult to oral surgeon. Patient asking what the cause of her microvascular changes are. Patient asking provider specifically if the cause is high BP because she doesn't really have high BP. Patient also asking if she should be on an antibiotic. ILA Dalal Christy, APRN.SUPERVISOR [employer]UMENT [employer]INTENANCE 07/05/2023 4:40 PM Signed It can be related to age related changes, or chronic elevated blood pressure, high cholesterol, etc. So it is important to just keep all of these controlled to prevent any worsening. Likely does not need an antibiotic at this time, but does need to see an oral surgeon for further evaluation. Linnette Ferrara 07/05/2023 4:59 PM Signed Spoke with patient and her sister. Relayed message. They verbalized understanding and had a couple more questions. Can these mild microvascular changes be reversed or are they permanent? Is she now at higher risk for stroke with these changes? Marsha Burleson APRN.PRESLEY 07/05/2023 5:00 PM Signed Unfortunately, they are likely permanent. If they worsen, it can increase the risk of a stroke. Rahul Andre 07/08/2023 11:44 AM Signed Pt notified. She verbalized understanding. She states she will call today to schedule an appt with oral surgeon. Rahul Andre Allergies As of Date: 07/05/2023 Noted Allergy Reaction BACTRIM (SULFAMETHOXAZOLE-TRIM ETH*05/04/2005 8 - GI Upset Comments: diarrhea BENZAMYCIN (ERYTHROMYCIN-BENZOYL *08/01/2005 5 - Intolerance Comments: Gastric upset ELAVIL (AMITRIPTYLINE) 12/18/2019 8 - GI Upset Comments: nausea environmental [Other] 08/19/2007 Comments: cats GUIAFEN-PSE (PSEUDOEPHEDRINE-GUAI* 04/14/2011 6 - Diarrhea HUMIRA (ADALIMUMAB) 04/07/2013 2 - Rash Comments: hair loss LODINE (ETODOLAC) 10/11/2005 8 - GI Upset METHOTREXATE 04/05/2014 14 - Other: See Comments Comments: SANDY NEURONTIN (GABAPENTIN) 08/01/2005 NSAIDS (NON-STEROIDAL ANTI-INFLAM*07/06/2019 14 - Other: See Comments Comments: high risk of peptic ulcer disease (s/p gastric bypass) ULTRAM (TRAMADOL HCL) 08/01/2005 6 - Diarrhea VICODIN (HYDROCODONE-ACETAMINO PHE*05/04/2005 1 - Mental Status Change VOLTAREN (DICLOFENAC SODIUM) 08/29/2005 Comments: sedation ZOSTRIX-HP (CAPSAICIN) 08/23/2005 Date Reviewed: 06/04/2023 Reviewed by: Rahul Andre LPN - Fully Assessed Reason for Visit: Results [95] Primary Visit Diagnosis:Abnormal MRI [R93.89] Order(s):CONSULT TO DENTISTRY [] Order #: [id number]: 1 FUTURE Prescriptions as of 07/08/2023 - levothyroxine (LEVOXYL) 88 mcg tablet Take 1 tablet by mouth once daily. Take on empty stomach. For Thyroid - calcium carbonate 600 mg-cholecalciferol 200 units (CALCIUM 600 + D,3,) 600 mg-5 mcg (200 unit) tab Take 1 tablet by mouth two times a day. - cyanocobalamin 1,000 mcg/mL Inject 1 mL subcutaneously once every month. - Syringe with Needle, Disp, (MONOJECT SAFETY SYRINGES) syrg 1 Each once every month. 1 ml, 25 gauge 1/2 - Zinc Sulfate 50 mg zinc (220 mg) tab Take 1 tablet by mouth once daily. - gabapentin (NEURONTIN) 600 mg tablet Take 1 tablet by mouth three times daily for 60 days. - DULoxetine (CYMBALTA) 60 mg capsule Take 1 capsule by mouth twice daily. - traZODone (DESYREL) 150 mg tablet Take 1 tablet by mouth daily at bedtime. - topiramate (TOPAMAX) 100 mg tablet Take 2 tablets by mouth twice daily. - cholecalciferol (VITAMIN D3) 5,000 unit tab Take 1 tablet by mouth once daily. - ferrous sulfate 325 mg (65 mg iron) tablet Take 1 tablet by mouth daily with breakfast. - tiZANidine (ZANAFLEX) 4 mg tablet Take 2 tablets by mouth every 6 hours as needed (muscle spasms). (more content not included)... Normal [facility] MRI BRAIN WO IVCONon 023 MRI BRAIN WO IVCON * * *Final Report* * * DATE OF EXAM: Jul 04 2023 3:30PM WR [id number] - MRI BRAIN WO IVCON / PROCEDURE REASON: multiple diagnoses * * * * Physician Interpretation * * * * EXAMINATION: MRI BRAIN WO IVCON CLINICAL HISTORY: Hx of migraines. Now having headaches that are different than her typical migraines. Also noted to have some confusion and forgetfulness. TECHNIQUE: Routine noncontrast MRI protocol including diffusion images. MQ: [id number] COMPARISON: 11/03/2014 RESULT: Acute Change: There is no evidence of restricted diffusion to suggest an acute infarct. Hemorrhage: No evidence of prior parenchymal hemorrhage on the gradient echo images. Mass Lesion/ Mass Effect: No evidence of an intracranial mass or extra-axial fluid collection. No significant mass effect. Chronic Change: Scattered patchy areas of increased T2 and FLAIR signal are present in the supratentorial white matter which is a nonspecific finding but likely represents mild chronic microvascular ischemia. Parenchyma: No significant volume loss for age. The brain parenchyma is otherwise within normal limits of signal intensity and morphology. Ventricles: Normal caliber and morphology. Skull Base: Hypothalamic and pituitary region are grossly normal. Craniocervical junction is normal. No significant marrow replacement process. Vasculature: Major intracranial arterial structures, and dural venous sinuses show typical flow void, suggesting patency by spin echo criteria. Other: The visualized paranasal sinuses and mastoid air cells are clear. Degenerative change bilateral TMJ, noting right greater than left condylar head flattening. The orbits and extracranial soft tissues are unremarkable. IMPRESSION: No evidence of an acute intracranial process or mass effect. Mild burden of nonspecific, likely microvascular ischemic white matter change. Advanced degenerative change of bilateral TMJ, noting right greater than left condylar head flattening which could be due to sequelae of avascular necrosis. [employer] Care[employer] Instructor: HERMES Transcribe Date/Time: Jul 04 2023 4:44P Dictated by : CARLOTTA LYN MD This examination was interpreted and the report reviewed and electronically signed by: CARLOTTA LYN MD on Jul 04 2023 4:49PM EST [id number] Normal [facility] 06-14-2023 [facility] Telephone (FAMPWS) PAULINA MEI ([id number]) 1965 F NFR Date Time Provider Department 06/14/23 MARSHA MACIAS During your visit today, we recorded the following information about you: Marita Bowden JHON 06/14/2023 3:32 PM Signed Patient calling has had migraine for past 3 days and she can not get rid of it. She has not had one for many years, she has been taking her topamax. Patient said she is having blurred vision, light sensitivity, pain in her neck. Patient has not had migraine medication for long time back with Dr Mariela Arnold. Patient uses [facility] for her pharmacy. Patient is asking for rx to help get rid of the headache, she thinks from the weather change. Please advise Marsha Macias APRN.SUPERVISOR [employer]INTENANCE 06/14/2023 3:47 PM Signed She was seen last week and was having problems with confusion, forgetfulness, and seeing some things (ie the wall's breathing), and some headaches at that time. We are waiting to get some imaging of her head. Because of the other symptoms that she was having and worsening of the headache, I would recommend that she be evaluated int he ER where she get a scan of her head. Marsha Macias APRN.Yamile Ellsworth LPN 06/14/2023 3:54 PM Signed Pt advised of Marsha's message and instructions. Pt verbalizes understanding. Pt reports that she will go to [facility] ER. Yamile Michael LPN Allergies As of Date: 06/14/2023 Noted Allergy Reaction BACTRIM (SULFAMETHOXAZOLE-TRIM ETH*05/04/2005 8 - GI Upset Comments: diarrhea BENZAMYCIN (ERYTHROMYCIN-BENZOYL *08/01/2005 5 - Intolerance Comments: Gastric upset ELAVIL (AMITRIPTYLINE) 12/18/2019 8 - GI Upset Comments: nausea environmental [Other] 08/19/2007 Comments: cats GUIAFEN-PSE (PSEUDOEPHEDRINE-GUAI* 04/14/2011 6 - Diarrhea HUMIRA (ADALIMUMAB) 04/07/2013 2 - Rash Comments: hair loss LODINE (ETODOLAC) 10/11/2005 8 - GI Upset METHOTREXATE 04/05/2014 14 - Other: See Comments Comments: SANDY NEURONTIN (GABAPENTIN) 08/01/2005 NSAIDS (NON-STEROIDAL ANTI-INFLAM*07/06/2019 14 - Other: See Comments Comments: high risk of peptic ulcer disease (s/p gastric bypass) ULTRAM (TRAMADOL HCL) 08/01/2005 6 - Diarrhea VICODIN (HYDROCODONE-ACETAMINO PHE*05/04/2005 1 - Mental Status Change VOLTAREN (DICLOFENAC SODIUM) 08/29/2005 Comments: sedation ZOSTRIX-HP (CAPSAICIN) 08/23/2005 Date Reviewed: 06/04/2023 Reviewed by: Rahul Andre LPN - Fully Assessed Reason for Visit: Medication Request [138] Prescriptions as of 06/14/2023 - albuterol HFA (PROVENTIL HFA, VENTOLIN HFA) 90 mcg/actuation inhaler Inhale 2 Puffs as instructed every 4 hours as needed for Wheezing/Shortness of Breath. - alendronate (FOSAMAX) 70 mg tablet Take 1 tablet by mouth one time a week. Take with a full glass of water, on an empty stomach; do NOT lie down for 30minutes. - blood sugar diagnostic (ONETOUCH ULTRA TEST) test strip test once/day. DX 250.00 no insulin - Blood-Glucose Meter (ONETOUCH ULTRA SYSTEM KIT) monitoring kit test one time daily dx 250.00 no insulin - busPIRone (BUSPAR) 10 mg tablet Take 1 tablet by mouth three times daily. - calcium carbonate 600 mg-cholecalciferol 200 units (CALCIUM 600 + D,3,) 600 mg-5 mcg (200 unit) tab Take 1 tablet by mouth two times a day. - cholecalciferol (VITAMIN D3) 5,000 unit tab Take 1 tablet by mouth once daily. - cyanocobalamin 1,000 mcg/mL Inject 1 mL subcutaneously once every month. - DULoxetine (CYMBALTA) 60 mg capsule Take 1 capsule by mouth twice daily. - ferrous sulfate 325 mg (65 mg iron) tablet Take 1 tablet by mouth daily with breakfast. - fluticasone (FLONASE) 50 mcg/actuation nasal spray Use 2 Sprays in each nostril once daily. Rinse mouth after use. - gabapentin (NEURONTIN) 600 mg tablet Take 1 tablet by mouth three times daily for 60 days. - levothyroxine (LEVOXYL) 88 mcg tablet Take 1 tablet by mouth once daily. Take on empty stomach. For Thyroid - naloxone (NARCAN) 4 mg/actuation nasal spray 1 [place] by nasal (alternating) route as directed for 1 dose. 1 spray into 1 nostril. Additional doses may be given every 2-3 minutes until emergency arrives. - naloxone 4 mg/actuation nasal spray (NARCAN) Use 1 spray in one nostril as needed for overdose. May repeat every 2 to 3 min in alternating nostrils until medical assistance is available - simethicone, chewable (MYLICON) 80 mg chewable tablet Take 1 tablet by mouth three times daily as needed. - Syringe with Needle, Disp, (MONOJECT SAFETY SYRINGES) syrg 1 Each once every month. 1 ml, 25 gauge 1/2 - tiZANidine (ZANAFLEX) 4 mg tablet Take 2 tablets by mouth every 6 hours as needed (muscle spasms). - topiramate (TOPAMAX) 100 mg tablet Take 2 tablets by mouth twice daily. - traZODone (DESYREL) 150 mg tablet Take 1 tablet by mouth daily at bedtime. - Zinc Sulfate 50 mg zinc (220 mg) tab Take 1 table (more content not included)... [facility] (FAMFrankWS) PAULINA MEI ([id number]) 1965 F NFR Date Time Provider Department 06/06/23 MARSHA MACIAS During your visit today, we recorded the following information about you: Marsha Macias APRN.CNP 06/06/2023 5:34 PM Signed Can please let patient know that I received her lab results. Her vitamin D is low. Has she been taking the 5000 units of vitamin D daily? Please encourage her to be more consistent taking her thyroid medication, as previously discussed. Her zinc was still a little low. I sent a new script to the pharmacy. Please make sure she takes daily. Her b12 was low. This could be causing some memory problems. Lets have her start B12 injections. I put the order in. Please help schedule. Please recheck labs in 2 months. The orders are in. JORGE LUIS Peck Barbara, LPN 06/07/2023 9:09 AM Signed TC to Pt. Unable to LM due to the mailbox is full. Will try again later. JHON Reid Sherrie, RN 06/07/2023 3:23 PM Signed Patient notified of provider's message below. Patient states she would like to self-administer the B12 injections at home. States she has done this before and feels comfortable restarting these. This nurse did offer a visit with our injection nurse to review administration of medication, and patient politely declined. Pt uses [facility]. Please call patient once script has been sent please. [phone] Thank you. Marsha Macias APRN.CNP 06/07/2023 3:40 PM Signed Scripts sent. Marsha Macias APRN.PRESLEY Marita Bowden JHON 06/07/2023 4:15 PM Signed Phoned patient and aware rx were sent to the pharmacy. Allergies As of Date: 06/06/2023 Noted Allergy Reaction BACTRIM (SULFAMETHOXAZOLE-TRIM ETH*05/04/2005 8 - GI Upset Comments: diarrhea BENZAMYCIN (ERYTHROMYCIN-BENZOYL *08/01/2005 5 - Intolerance Comments: Gastric upset ELAVIL (AMITRIPTYLINE) 12/18/2019 8 - GI Upset Comments: nausea environmental [Other] 08/19/2007 Comments: cats GUIAFEN-PSE (PSEUDOEPHEDRINE-GUAI* 04/14/2011 6 - Diarrhea HUMIRA (ADALIMUMAB) 04/07/2013 2 - Rash Comments: hair loss LODINE (ETODOLAC) 10/11/2005 8 - GI Upset METHOTREXATE 04/05/2014 14 - Other: See Comments Comments: SANDY NEURONTIN (GABAPENTIN) 08/01/2005 NSAIDS (NON-STEROIDAL ANTI-INFLAM*07/06/2019 14 - Other: See Comments Comments: high risk of peptic ulcer disease (s/p gastric bypass) ULTRAM (TRAMADOL HCL) 08/01/2005 6 - Diarrhea VICODIN (HYDROCODONE-ACETAMINO PHE*05/04/2005 1 - Mental Status Change VOLTAREN (DICLOFENAC SODIUM) 08/29/2005 Comments: sedation ZOSTRIX-HP (CAPSAICIN) 08/23/2005 Date Reviewed: 06/04/2023 Reviewed by: Rahul Andre LPN - Fully Assessed Reason for Visit: Results [95] Primary Visit Diagnosis:B12 deficiency [E53.8] Other Visit Diagnoses:Vitamin D deficiency [E55.9] Zinc deficiency [E60] Hypothyroidism, unspecified type [E03.9] Order(s):Zinc Sulfate 50 mg zinc (220 mg) tabTake 1 tablet by mouth once daily.Disp: 30 tabletRfl: 5 ZINC BLD [SQZINC] Order #: [id number] FUTURE VITAMIN D 25 HYDROXY [SQVITD] Order #: [id number] FUTURE TSH BLD [SQTSH] Order #: [id number] FUTURE T4 FREE/FREE THYROX [SQFT4] Order #: [id number] FUTURE VITAMIN B12 BLOOD [SQB12] Order #: [id number] FUTURE cyanocobalamin 1,000 mcg/mLInject 1 mL subcutaneously once every month.Disp: 1 mLRfl: 12 Syringe with Needle, Disp, (MONOJECT SAFETY SYRINGES) syrg1 Each once every month. 1 ml, 25 gauge 1/2 Disp: 1 EachRfl: 11 Prescriptions as of 06/07/2023 - cyanocobalamin 1,000 mcg/mL Inject 1 mL subcutaneously once every month. - Syringe with Needle, Disp, (MONOJECT SAFETY SYRINGES) syrg 1 Each once every month. 1 ml, 25 gauge 1/2 - Zinc Sulfate 50 mg zinc (220 mg) tab Take 1 tablet by mouth once daily. - mupirocin (BACTROBAN) 2 % ointment Apply to affected area three times a day for 5 days. Apply to toe - gabapentin (NEURONTIN) 600 mg tablet Take 1 tablet by mouth three times daily for 60 days. - DULoxetine (CYMBALTA) 60 mg capsule Take 1 capsule by mouth twice daily. - traZODone (DESYREL) 150 mg tablet Take 1 tablet by mouth daily at bedtime. - topiramate (TOPAMAX) 100 mg tablet Take 2 tablets by mouth twice daily. - cholecalciferol (VITAMIN D3) 5,000 unit tab Take 1 tablet by mouth once daily. - ferrous sulfate 325 mg (65 mg iron) tablet Take 1 tablet by mouth daily with breakfast. - tiZANidine (ZANAFLEX) 4 mg tablet Take 2 tablets by mouth every 6 hours as needed (muscle spasms). - simethicone, chewable (MYLICON) 80 mg chewable tablet Take 1 tablet by mouth three times daily as needed. - levothyroxine (LEVOXYL) 88 mcg tablet Take 1 tablet by mouth once daily. Take on empty stomach. For Thyroid - potassium chloride ER (K-DUR, KLOR-CON) 20 mEq tablet Take 1 tablet by mouth three times daily. - busPIRone (BUSPAR) 10 mg tablet Take 1 t (more content not included)... Normal [facility] 25(OH)D3 Lucianol-uriel 2022 25-hydroxyvitamin D3 [Mass/Vol] 5.8 ng/mL Low 31.0-80.0 [facility] Comment on above: Order Comment: Speci men Type: BLOOD SPECIMEN Ordering Facility: [facility] Address: [address] [place] [address] Result Comment: Clas sification of 25 [place] Vitamin D status: Deficiency/Insufficiency: < or = 30 ng/ml. Sufficiency/Optimal Levels: 31-80 ng/mL Toxicity: > 100 ng/mL. Test performed by chemiluminescent immunoassay. Performed By: #### 1 989-3 #### [facility] CLIA [id number] [address] [place] [address] [place] Basic metabolic 2000 panelon 06-04-2023 Anion gap [Moles/Vol] 9 mmol/L Normal 9-18 [facility] Comment on above: Order Comment: Speci men Type: BLOOD SPECIMENOrdering Facility: [facility] Address: [address] [place] [address] Performed By: #### 3 024-7, 3016-3, 16671-3, 13250-5 ####[facility] [id number] [place] [address] [place] Calcium [Mass/Vol] 8.5 mg/dL Normal 8.5-10.2 [facility] Comment on above: Order Comment: Speci men Type: BLOOD SPECIMENOrdering Facility: [facility] Address: [address] [place] [address] Performed By: #### 3 024-7, 3016-3, 62448-3, 98899-8 ####[facility] [id number] [address] [place] Chloride [Moles/Vol] 115 mmol/L High 97-105 [facility] Comment on above: Order Comment: Speci men Type: BLOOD SPECIMENOrdering Facility: [facility] Address: [address] [place] [address] Performed By: #### 3 024-7, 3016-3, 98142-2, 95541-4 ####[facility] LABCLIA [id number] [place] [address] [place] CO2 [Moles/Vol] 18 mmol/L Low 22-30 [facility] Comment on above: Order Comment: Specjuliano men Type: BLOOD SPECIMENOrdering Facility: [facility] Address: [address] [place] [address] Performed By: #### 3 024-7, 3016-3, 26967-5, 46875-7 ####[facility] LABCLIA [id number] [address] [place] Creatinine [Mass/Vol] 0.62 mg/dL Normal 0.58-0.96 [facility] Comment on above: Order Comment: Arti men Type: BLOOD SPECIMENOrdering Facility: [facility] Address: [address] [place] [address] Performed By: #### 3 024-7, 3016-3, 40491-9, 02518-5 ####[facility] LABIA [id number] [place] [address] [place] Creatinine and Glomerular filtration rate.predicted panel (S/P/Bld) 104 mL/min/1.73m??? Normal >=60 [facility] Comment on above: Order Comment: Specjuliano hussein Type: BLOOD SPECIMENOrdering Facility: [facility] Address: [address] [place] [address] Result Comment: Rachel mated Glomerular Filtration Rate (eGFR) is calculated using the 2020 CKD-EPI creatinine equation. This equation utilizes serum creatinine, sex, and age as parameters. The creatinine assay has traceable calibration to isotope dilution-mass spectrometry. Refer to KDIGO guidelines for clinical interpretation. In patients with unstable renal function, e.g. those with acute kidney injury, the eGFR may not accurately reflect actual GFR. Performed By: #### 3 024-7, 3016-3, 05919-6, 63956-6 ####[facility] LABCLIA [id number] [place] [address] [place] Glucose [Mass/Vol] 86 mg/dL Normal 74-99 [facility] Comment on above: Order Comment: Speci men Type: BLOOD SPECIMENOrdering Facility: [facility] Address: [address] [place] [address] Result Comment: The [place] Diabetes Association (ADA) provides guidance for cutoff values for fasting glucose and random glucose. The ADA defines fasting as no caloric intake for at least 8 hours. Fasting plasma glucose results between 100 to 125 mg/dL indicate increased risk for diabetes (prediabetes). Fasting plasma glucose results greater than or equal to 126 mg/dL meet the criteria for diagnosis of diabetes. In the absence of unequivocal hyperglycemia, results should be confirmed by repeat testing. In a patient with classic symptoms of hyperglycemia or hyperglycemic crisis, random plasma glucose results greater than or equal to 200 mg/dL meet the criteria for diagnosis of diabetes. Reference: Standards of Medical Care in Diabetes 2016, [place] Diabetes Association. Diabetes Care. 2016.39(Suppl 1). Performed By: #### 3 024-7, 3016-3, 45936-3, 34334-5 ####[facility] LABCLIA [id number] [place] [address] [place] Potassium [Moles/Vol] 4.0 mmol/L Normal 3.7-5.1 [facility] Comment on above: Order Comment: Malick hussein Type: BLOOD SPECIMENOrdering Facility: [facility] Address: [address] [place] [address] Performed By: #### 3 024-7, 3016-3, 29349-0, 06627-4 ####[facility] LABCLIA [id number] [place] [address] [place] Sodium [Moles/Vol] 142 mmol/L Normal 136-144 [facility] Comment on above: Order Comment: Arti men Type: BLOOD SPECIMENOrdering Facility: [facility] Address: [address] [place] [address] Performed By: #### 3 024-7, 3016-3, 94349-0, 54581-3 ####[facility] LABCLIA [id number] [place] [address] [place] Urea nitrogen [Mass/Vol] 15 mg/dL Normal 7-21 [facility] Comment on above: Order Comment: Speci men Type: BLOOD SPECIMENOrdering Facility: [facility] Address: [address] [place] [address] Performed By: #### 3 024-7, 3016-3, 69736-8, 78927-8 ####[facility] LABCLIA [id number] [place] [address] [place] CBC W Auto Differential pane l (Bld)on 06-04-2023 Basophils (Bld) [#/Vol] 0.05 10*3/uL Normal <0.11 [facility] Comment on above: Order Comment: Speci men Type: BLOOD SPECIMEN Ordering Facility: [facility] Address: [address] [place] [address] Performed By: #### 5 7021-8 #### [facility] CLIA [id number] [address] [place] [address] [place] Basophils/100 WBC (Bld) 1.0 % Normal [facility] Comment on above: Order Comment: Speci men Type: BLOOD SPECIMEN Ordering Facility: [facility] Address: [address] [place] [address] Performed By: #### 5 7021-8 #### [facility] CLIA [id number] [address] [place] [address] [place] Differential cell count method Nom (Bld) Auto Normal [facility] Comment on above: Order Comment: Speci men Type: BLOOD SPECIMEN Ordering Facility: [facility] Address: [address] [place] [address] Performed By: #### 5 7021-8 #### [facility] CLIA [id number] [address] [place] [address] [place] Eosinophils (Bld) [#/Vol] 0.10 10*3/uL Normal <0.46 [facility] Comment on above: Order Comment: Speci men Type: BLOOD SPECIMEN Ordering Facility: [facility] Address: [address] Performed By: #### 5 7021-8 #### [facility] CLIA [id number] [address] [place] [address] [place] Eosinophils/100 WBC (Bld) 2.0 % Normal [facility] Comment on above: Order Comment: Speci men Type: BLOOD SPECIMEN Ordering Facility: [facility] Address: [address] Performed By: #### 5 7021-8 #### [facility] CLIA [id number] [address] [place] [address] [place] Erythrocyte distribution width (RBC) [Ratio] 16.5 % High 11.5-15.0 [facility] Comment on above: Order Comment: Speci men Type: BLOOD SPECIMEN Ordering Facility: [facility] Address: [address] Performed By: #### 5 7021-8 #### [facility] CLIA [id number] [address] [place] [address] [place] Hematocrit (Bld) [Volume fraction] 39.1 % Normal 36.0-46.0 [facility] Comment on above: Order Comment: Speci men Type: BLOOD SPECIMEN Ordering Facility: [facility] Address: [address] Performed By: #### 5 7021-8 #### [facility] CLIA [id number] [address] [place] [address] [place] Hemoglobin (Bld) [Mass/Vol] 11.2 g/dL Low 11.5-15.5 [facility] Comment on above: Order Comment: Speci men Type: BLOOD SPECIMEN Ordering Facility: [facility] Address: [address] Performed By: #### 5 7021-8 #### [facility] CLIA [id number] [address] [place] [address] [place] Immature granulocytes (Bld) [#/Vol] 10*3/uL Normal <0.10 [facility] Comment on above: Order Comment: Speci men Type: BLOOD SPECIMEN Ordering Facility: [facility] Address: [address] [place] [address] Performed By: #### 5 7021-8 #### [facility] CLIA [id number] [address] [place] [address] [place] Immature granulocytes/100 WBC (Bld) 0.2 % Normal [facility] Comment on above: Order Comment: Speci men Type: BLOOD SPECIMEN Ordering Facility: [facility] Address: [address] [place] [address] Performed By: #### 5 7021-8 #### [facility] CLIA [id number] [address] [place] [address] [place] Lymphocytes (Bld) [#/Vol] 1.28 10*3/uL Normal 1.00-4.00 [facility] Comment on above: Order Comment: Speci men Type: BLOOD SPECIMEN Ordering Facility: [facility] Address: [address] [place], [place] [address] Performed By: #### 5 7021-8 #### [facility] CLIA [id number] [address] [place] [address] [place] Lymphocytes/100 WBC (Bld) 25.9 % Normal [facility] Comment on above: Order Comment: Speci men Type: BLOOD SPECIMEN Ordering Facility: [facility] Address: [address] [place], [place] [address] Performed By: #### 5 7021-8 #### [facility] CLIA [id number] [address] [place] [address] [place] MCH (RBC) [Entitic mass] 23.9 pg Low 26.0-34.0 [facility] Comment on above: Order Comment: Speci men Type: BLOOD SPECIMEN Ordering Facility: [facility] Address: [address] Performed By: #### 5 7021-8 #### [facility] CLIA [id number] [address] [place] [address] [place] MCHC (RBC) [Mass/Vol] 28.6 g/dL Low 30.5-36.0 [facility] Comment on above: Order Comment: Speci men Type: BLOOD SPECIMEN Ordering Facility: [facility] Address: [address] Performed By: #### 5 7021-8 #### [facility] CLIA [id number] [address] [place] [address] [place] MCV (RBC) [Entitic vol] 83.5 fL Normal 80.0-100.0 [facility] Comment on above: Order Comment: Speci men Type: BLOOD SPECIMEN Ordering Facility: [facility] Address: [address] Performed By: #### 5 7021-8 #### [facility] CLIA [id number] [address] [place] [address] [place] Monocytes (Bld) [#/Vol] 0.36 10*3/uL Normal <0.87 [facility] Comment on above: Order Comment: Speci men Type: BLOOD SPECIMEN Ordering Facility: [facility] Address: [address] Performed By: #### 5 7021-8 #### [facility] CLIA [id number] [address] [place] [address] [place] Monocytes/100 WBC (Bld) 7.3 % Normal [facility] Comment on above: Order Comment: Speci men Type: BLOOD SPECIMEN Ordering Facility: [facility] Address: [address] [place], [place] [address] Performed By: #### 5 7021-8 #### [facility] CLIA [id number] [address] [place] [address] [place] Neutrophils (Bld) [#/Vol] 3.15 10*3/uL Normal 1.45-7.50 [facility] Comment on above: Order Comment: Speci men Type: BLOOD SPECIMEN Ordering Facility: [facility] Address: [address] Performed By: #### 5 7021-8 #### [facility] CLIA [id number] [address] [place] [address] [place] Neutrophils/100 WBC (Bld) 63.6 % Normal [facility] Comment on above: Order Comment: Speci men Type: BLOOD SPECIMEN Ordering Facility: [facility] Address: [address] Performed By: #### 5 7021-8 #### [facility] CLIA [id number] [address] [place] [address] [place] Nucleated RBC (Bld) [#/Vol] 10*3/uL Normal <0.01 [facility] Comment on above: Order Comment: Speci men Type: BLOOD SPECIMEN Ordering Facility: [facility] Address: [address] [place] [address] Performed By: #### 5 7021-8 #### [facility] CLIA [id number] [address] [place] [address] [place] Nucleated RBC/100 WBC (Bld) [Ratio] 0.0 /100 WBC Normal [facility] Comment on above: Order Comment: Speci men Type: BLOOD SPECIMEN Ordering Facility: [facility] Address: [address] Performed By: #### 5 7021-8 #### [facility] CLIA [id number] [address] [place] [address] [place] Platelet mean volume (Bld) [Entitic vol] 10.3 fL Normal 9.0-12.7 [facility] Comment on above: Order Comment: Speci men Type: BLOOD SPECIMEN Ordering Facility: [facility] Address: [address] [place], [place] [address] Performed By: #### 5 7021-8 #### [facility] CLIA [id number] [address] [place] [address] [place] Platelets (Bld) [#/Vol] 288 10*3/uL Normal 150-400 [facility] Comment on above: Order Comment: Speci men Type: BLOOD SPECIMEN Ordering Facility: [facility] Address: [address] [place], [place] [address] Performed By: #### 5 7021-8 #### [facility] CLIA [id number] [address] [place] [address] [place] RBC (Bld) [#/Vol] 4.68 10*6/uL Normal 3.90-5.20 [facility] Comment on above: Order Comment: Speci men Type: BLOOD SPECIMEN Ordering Facility: [facility] Address: [address] [place], [place] [address] Performed By: #### 5 7021-8 #### [facility] CLIA [id number] [address] [place] [address] [place] WBC (Bld) [#/Vol] 4.95 10*3/uL Normal 3.70-11.00 [facility] Comment on above: Order Comment: Speci men Type: BLOOD SPECIMEN Ordering Facility: [facility] Address: [address] [place], [place] [address] Performed By: #### 5 7021-8 #### [facility] CLIA [id number] [address] [place] [address] [place] CNOVon 06-04-2023 [facility] PAULINA MEI ([id number]) 1965 F NFR Date Time Provider Department 06/04/23 3:40 PM MARSHA MACIAS During your visit today, we recorded the following information about you: Pulse Respiration Blood pressure 84/minute 16/minute 114/82 Marsha Macias APRN.SUPERVISOR [employer]UMENT [employer]INTENANCE 06/04/2023 8:04 PM Signed This is a 57 year old female who presents today with: Patient presents with: Acute Visit: Confusion/forgetfullne ss x couple weeks HISTORY OF PRESENT ILLNESS: Paulina Mei is a 57 year old female. Patient presents with: Acute Visit: Confusion/forgetfullne ss x couple weeks Pt presents today with her sister. Refers that she has been having problems with memory. Thinks that she went places she hasn't. Will have very vivid recollection of going places with her sister (what the buildings/houses looked like and the people around). However, in reality, patient hasn't gone anywhere. Sister states Paulina will wake up and say where'd we go. Paulina sometimes she can't find her sister when she had gone to work (will look for her throughout the home). One day when out, when Paulina was waiting in the care, noticed that it looked like the yates were breathing. Hasn't had anything like this in the past. Seems to have started after a recent lupus flare. Started about 2 weeks ago. Sister reports that she notices that symptoms are worse after she takes her medications. Will get headaches. Hx of migraines, but these headaches are different. Usually on the top of the head. I've never had headaches like this before. Can last a few hours or all day. Refers will get sensitive to light/sound. No nausea with the headaches. Its been a long time since she has had a migraine. Admits that she frequently forgets thyroid medication. Denies any urinary symptoms. Denies any recent sickness. She also had a toenail fall off recently. Right great toe. Had some green drainage. Reports it is healing now. Had seen podiatry in the past and they wanted to do an amputation, so she did not return. PAST MEDICAL HISTORY: PAST MEDICAL HISTORY Diagnosis Date Anemia 08/14/2017 Chronic insomnia 09/09/2017 Depression 11/17/2012 Elevated liver function tests 05/22/2012 Fibromyalgia Hyperlipidemia LDL goal < 100 06/26/2010 Hypoglycemia after GI (gastrointestinal) surgery 04/30/2014 Iron deficiency anemia, unspecified Iron malabsorption 12/02/2017 Irritable bowel syndrome Migraine, unspecified, without mention of intractable migraine without mention of status migrainosus Morbid obesity due to excess calories ([facility]) 12/15/2015 Polyneuropathy in other diseases classified elsewhere ([facility]) Recurrent major depression in partial remission ([facility]) 02/29/2020 Rheumatoid arthritis(714.0) Systemic lupus erythematosus arthritis (HCC) 03/18/2014 Unspecified asthma(493.90) Unspecified hypothyroidism Vitamin B 12 deficiency 11/22/2017 Vitamin D deficiency 09/16/2012 PAST SURGICAL HISTORY Procedure Laterality Date ARTHROSCOPY KNEE DIAGNOSTIC W/WO SYNOVIAL BX SPX Arthroscopy, knee CHOLECYSTECTOMY 1992 Cholecystectomy COLONOSCOPY 1999 ESOPHAGOGASTRODUODENOS COPY TRANSORAL DIAGNOSTIC 1994 EGD HERNIA REPAIR 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 LAPS SUPRACRV HYSTERECT 250 GM/< RMVL TUBE/OVAR 08/09 endometriosis and ovarian cysts (EDIT 03/2015 abdominal incision) PULMONARY FUNCTION TEST ALLERGIES Bactrim [Sulfamethoxazole-Trim ethoprim], Benzamycin [Erythromycin-Benzoyl Peroxide], Elavil [Amitriptyline], Environmental [Other], Guiafen-Pse [Pseudoephedrine-Guaif enesin], Humira [Adalimumab], Lodine [Etodolac], Methotrexate, Neurontin [Gabapentin], Nsaids (Non-Steroidal Anti-Inflammatory Drug), Ultram [Tramadol Hcl], Vicodin [Hydrocodone-Acetamino phen], Voltaren [Diclofenac Sodium], and Zostrix-Hp [Capsaicin] MEDICATIONS Current Outpatient Medications Medication Sig gabapentin (NEURONTIN) 600 mg tablet Take 1 tablet by mouth three times daily for 60 days. DULoxetine (CYMBALTA) 60 mg capsule Take 1 capsule by mouth twice daily. traZODone (DESYREL) 150 mg tablet Take 1 tablet by mouth daily at bedtime. topiramate (TOPAMAX) 100 mg tablet Take 2 tablets by mouth twice daily. Zinc Sulfate 50 mg zinc (220 mg) tab Take 0.2273 tablets by mouth once daily. cholecalciferol (VITAMIN D3) 5,000 unit tab Take 1 tablet by mouth once daily. ferrous sulfate 325 mg (65 mg iron) tablet Take 1 tablet by mouth daily with breakfast. tiZANidine (ZANAFLEX) 4 mg tablet Take 2 tablets by mouth every 6 hours as needed (muscle spasms). simethicone, chewable (MYLICON) 80 mg chewable tablet Take 1 tablet by mouth three times daily as needed. levothyroxine (LEVOXYL) 88 mcg tablet Take 1 tablet by mouth once daily. Take on empty stomach. For Thyroid potassium chloride ER (K-DUR, KLOR-CON) 20 m (more content not included)... Normal [facility] HbA1c (Bld)on 06-04-2023 Average glucose Estimated from glycated hemoglobin (Bld) [Mass/Vol] 91 mg/dL Normal [facility] Comment on above: Order Comment: Malick hussein Type: BLOOD SPECIMEN Ordering Facility: [facility] Address: [address] [place] [address] Result Comment: eAG: (Estimated average glucose) is a calculated value from HgbA1c and is b2b outside sales representative of the average blood glucose level in the last 2-3 month period. Performed By: #### 5 7021-8 #### [facility] CLIA [id number] [address] [place] [address] [place] [facility] HbA1c (Bld) [Mass fraction] 4.8 % Normal 4.3-5.6 [facility] Comment on above: Order Comment: Malick hussein Type: BLOOD SPECIMEN Ordering Facility: [facility] Address: [address] [place] [place] [address] Result Comment: [place] [employer] guidelines indicate that patients with HgbA1c in the range 5.7-6.4% are at increased risk for development of diabetes, and intervention by lifestyle modification may be beneficial. HgbA1c greater or equal to 6.5% is considered diagnostic of diabetes. Performed By: #### 5 7021-8 #### [facility] CLIA [id number] [address] [place] [address] [place] Hepatic function 2000 panelo n 06-04-2023 Albumin [Mass/Vol] 3.4 g/dL Low 3.9-4.9 [facility] Comment on above: Order Comment: Speci men Type: BLOOD SPECIMENOrdering Facility: [facility] Address: [address] [place] [address] Performed By: #### 3 024-7, 3016-3, 60939-7, 37375-6 ####[facility]IA [id number] [address] [place] ALP [Catalytic activity/Vol] 136 U/L High 34-123 [facility] Comment on above: Order Comment: Speci men Type: BLOOD SPECIMENOrdering Facility: [facility] Address: [address] [place] [address] Performed By: #### 3 024-7, 3016-3, 11671-5, 90831-1 ####[facility]IA [id number] [address] [place] ALT [Catalytic activity/Vol] 22 U/L Normal 7-38 [facility] Comment on above: Order Comment: Speci men Type: BLOOD SPECIMENOrdering Facility: [facility] Address: [address] [place] [address] Performed By: #### 3 024-7, 3016-3, 16851-8, 93704-3 ####[facility]IA [id number] [address] [place] AST [Catalytic activity/Vol] 21 U/L Normal 13-35 [facility] Comment on above: Order Comment: Speci men Type: BLOOD SPECIMENOrdering Facility: [facility] Address: [address] [place] [address] Performed By: #### 3 024-7, 3016-3, 92684-1, 28291-4 ####[facility]IA [id number] [place] [address] [place] Bilirubin [Mass/Vol] mg/dL Low 0.2-1.3 [facility] Comment on above: Order Comment: Speci men Type: BLOOD SPECIMENOrdering Facility: [facility] Address: [address] [place] [address] Performed By: #### 3 024-7, 3016-3, 65631-9, 67191-2 ####[facility]IA [id number] [place] [address] [place] Bilirubin.conjugate d [Mass/Vol] mg/dL Normal <0.2 [facility] Comment on above: Order Comment: Speci men Type: BLOOD SPECIMENOrdering Facility: [facility] Address: [address] [place] [address] Performed By: #### 3 024-7, 3016-3, 07904-9, 11155-0 ####[facility]IA [id number] [place] [address] [place] Protein [Mass/Vol] 6.3 g/dL Normal 6.3-8.0 [facility] Comment on above: Order Comment: Speci men Type: BLOOD SPECIMENOrdering Facility: [facility] Address: [address] [place] [address] Performed By: #### 3 024-7, 3016-3, 09924-2, 74536-7 ####[facility]IA [id number] [place] [address] [place] T4 Free SerPl-mCncon 023 Free T4 [Mass/Vol] 0.8 ng/dL Low 0.9-1.7 [facility] Comment on above: Order Comment: Speci men Type: BLOOD SPECIMENOrdering Facility: [facility] Address: [address] [place] [address] Performed By: #### 3 024-7, 3016-3, 46859-6, 28133-7 ####[facility]IA [id number] [place] [address] [place] TSH SerPl-aCncon 06-04-2023 TSH Qn 3.900 m[IU]/L Normal 0.270-4.200 [facility] Comment on above: Order Comment: Speci men Type: BLOOD SPECIMENOrdering Facility: [facility] Address: [address] [place] [address] Performed By: #### 3 024-7, 3016-3, 68529-4, 57050-8 ####[facility] [id number] [place] [address] [place] Vit B12 SerPl-mCncon 023 Cobalamin (Vitamin B12) [Mass/Vol] 219 pg/mL Low 232-1245 [facility] Comment on above: Order Comment: Speci men Type: BLOOD SPECIMENOrdering Facility: [facility] Address: [address] [place] [address] Performed By: #### 2 [id number] ####[facility] [id number] [place] [address] [place] Zinc SerPl-mCncon 06-04-2023 Zinc [Mass/Vol] 52 ug/dL Low 60-120 [facility] Comment on above: Order Comment: Speci men Type: BLOOD SPECIMENOrdering Facility: [facility] Address: [address] [place] [address] Result Comment: This test was developed and its performance characteristics determined by [facility]'s [facility] Pathology and Laboratory Medicine [facility] (-[facility]). It has not been cleared or approved by the FDA. [facility] is regulated under CLIA as qualified to perform high-complexity testing. This test is used for clinical purposes. It should not be regarded as investigational or for research. Performed By: #### 5 [id number] ####[facility] ALEXA [id number] [address] [place] 03-12-2023 CNPN Telephone (ORMDNA) PAULINA MEI ([id number]) 1965 F NFR Date Time Provider Department 03/12/23 OTHER (HIST) ORMDNA During your visit today, we recorded the following information about you: Martha Timmonsner 03/12/2023 8:45 AM Signed Patient was on wait list for the following - Acute pain of both knees [M25.561, M25.562] Patient had also stated she had a fx in her knee. Martha Ace 03/12/2023 8:46 AM Signed Called patient and scheduled her Saturday with Kapil. Allergies As of Date: 03/12/2023 Noted Allergy Reaction BACTRIM (SULFAMETHOXAZOLE-TRIM ETH*05/04/2005 8 - GI Upset Comments: diarrhea BENZAMYCIN (ERYTHROMYCIN-BENZOYL *08/01/2005 5 - Intolerance Comments: Gastric upset ELAVIL (AMITRIPTYLINE) 12/18/2019 8 - GI Upset Comments: nausea environmental [Other] 08/19/2007 Comments: cats GUIAFEN-PSE (PSEUDOEPHEDRINE-GUAI* 04/14/2011 6 - Diarrhea HUMIRA (ADALIMUMAB) 04/07/2013 2 - Rash Comments: hair loss LODINE (ETODOLAC) 10/11/2005 8 - GI Upset METHOTREXATE 04/05/2014 14 - Other: See Comments Comments: SANDY NEURONTIN (GABAPENTIN) 08/01/2005 NSAIDS (NON-STEROIDAL ANTI-INFLAM*07/06/2019 14 - Other: See Comments Comments: high risk of peptic ulcer disease (s/p gastric bypass) ULTRAM (TRAMADOL HCL) 08/01/2005 6 - Diarrhea VICODIN (HYDROCODONE-ACETAMINO PHE*05/04/2005 1 - Mental Status Change VOLTAREN (DICLOFENAC SODIUM) 08/29/2005 Comments: sedation ZOSTRIX-HP (CAPSAICIN) 08/23/2005 Date Reviewed: 02/06/2023 Reviewed by: Rahul Andre LPN - Fully Assessed Reason for Visit: Appointment [186] Prescriptions as of 03/12/2023 - topiramate (TOPAMAX) 100 mg tablet Take 2 tablets by mouth twice daily. - Zinc Sulfate 50 mg zinc (220 mg) tab Take 0.2273 tablets by mouth once daily. - cholecalciferol (VITAMIN D3) 5,000 unit tab Take 1 tablet by mouth once daily. - ferrous sulfate 325 mg (65 mg iron) tablet Take 1 tablet by mouth daily with breakfast. - tiZANidine (ZANAFLEX) 4 mg tablet Take 2 tablets by mouth every 6 hours as needed (muscle spasms). - traZODone (DESYREL) 150 mg tablet Take 1 tablet by mouth daily at bedtime. - simethicone, chewable (MYLICON) 80 mg chewable tablet Take 1 tablet by mouth three times daily as needed. - DULoxetine (CYMBALTA) 60 mg capsule Take 1 capsule by mouth twice daily. - gabapentin (NEURONTIN) 600 mg tablet Take 1 tablet by mouth three times daily for 90 days. - levothyroxine (LEVOXYL) 88 mcg tablet Take 1 tablet by mouth once daily. Take on empty stomach. For Thyroid - potassium chloride ER (K-DUR, KLOR-CON) 20 mEq tablet Take 1 tablet by mouth three times daily. - busPIRone (BUSPAR) 10 mg tablet Take 1 tablet by mouth three times daily. - naloxone 4 mg/actuation nasal spray (NARCAN) Use 1 spray in one nostril as needed for overdose. May repeat every 2 to 3 min in alternating nostrils until medical assistance is available - Zinc 50 mg tab Take 1 tablet by mouth once daily. - alendronate (FOSAMAX) 70 mg tablet Take 1 tablet by mouth one time a week. Take with a full glass of water, on an empty stomach; do NOT lie down for 30minutes. - calcium carbonate 600 mg-cholecalciferol 200 units (CALCIUM 600 + D,3,) 600 mg(1,500mg) -200 unit tab Take 1 tablet by mouth twice daily. - naloxone (NARCAN) 4 mg/actuation nasal spray 1 [place] by nasal (alternating) route as directed for 1 dose. 1 spray into 1 nostril. Additional doses may be given every 2-3 minutes until emergency arrives. - fluticasone (FLONASE) 50 mcg/actuation nasal spray Use 2 Sprays in each nostril once daily. Rinse mouth after use. - albuterol HFA (PROVENTIL HFA, VENTOLIN HFA) 90 mcg/actuation inhaler Inhale 2 Puffs as instructed every 4 hours as needed for Wheezing/Shortness of Breath. - blood sugar diagnostic (ONETOUCH ULTRA TEST) test strip test once/day. DX 250.00 no insulin - Blood-Glucose Meter (ONETOUCH ULTRA SYSTEM KIT) monitoring kit test one time daily dx 250.00 no insulin Meds Comments as of 04/14/2013: Problem List As Of Date 03/12/2023 Noted Resolved IRRITABLE COLON [K58.9] Hypothyroidism [E03.9] Disorders of bursae and tendons in shoulder reg*12/02/2006 09/29/2015 Plantar fascial fibromatosis [M72.2] 10/13/2008 09/29/2015 Photosensitivity Disorder [L56.8] 10/10/2009 Iron deficiency anemia [D50.9] 01/10/2010 06/19/2018 Diabetes Mellitus [E11.9] 04/20/2010 10/14/2014 Hyperlipidemia with target LDL less than 100 [E*06/26/2010 Vitamin d deficiency [E55.9] 09/16/2012 Fibromyalgia [M79.7] 12/05/2012 Rheumatoid arthritis involving multiple sites (*02/11/2013 Abdominal pain, unspecified site [R10.9] 04/14/2013 09/29/2015 Pubic bone pain [M89.9] 04/14/2013 09/29/2015 Incisional hernia [K43.2] 04/06/2014 10/22/2020 Hypoglycemia after GI (gastrointestinal) surger*04/30/2014 09/29/2015 Chronic migraine without aura without status mi*09/29/2015 Mild (more content not included)... Normal [facility] MEIPAUL[facility] Mobley ([id number]) 1965 F NFR Date Time Provider Department 03/01/23 MARSHA MACIAS During your visit today, we recorded the following information about you: Marsha Macias, [place].SUPERVISOR INSTRUMENT MAINTENANCE 03/01/2023 12:49 PM Signed Can please let patient know that I did hear back from ortho. The would like her to be non-weight bearing on the right leg until she is evaluated by them. Does she have a wheelchair or walker to use at home? Tanya Vyas F[employer]ERGL[employer] BONDING MACHINE TENDER 03/01/2023 1:14 PM Signed Pt. informed. Allergies As of Date: 03/01/2023 Noted Allergy Reaction BACTRIM (SULFAMETHOXAZOLE-TRIM ETH*05/04/2005 8 - GI Upset Comments: diarrhea BENZAMYCIN (ERYTHROMYCIN-BENZOYL *08/01/2005 5 - Intolerance Comments: Gastric upset ELAVIL (AMITRIPTYLINE) 12/18/2019 8 - GI Upset Comments: nausea environmental [Other] 08/19/2007 Comments: cats GUIAFEN-PSE (PSEUDOEPHEDRINE-GUAI* 04/14/2011 6 - Diarrhea HUMIRA (ADALIMUMAB) 04/07/2013 2 - Rash Comments: hair loss LODINE (ETODOLAC) 10/11/2005 8 - GI Upset METHOTREXATE 04/05/2014 14 - Other: See Comments Comments: SANDY NEURONTIN (GABAPENTIN) 08/01/2005 NSAIDS (NON-STEROIDAL ANTI-INFLAM*07/06/2019 14 - Other: See Comments Comments: high risk of peptic ulcer disease (s/p gastric bypass) ULTRAM (TRAMADOL HCL) 08/01/2005 6 - Diarrhea VICODIN (HYDROCODONE-ACETAMINO PHE*05/04/2005 1 - Mental Status Change VOLTAREN (DICLOFENAC SODIUM) 08/29/2005 Comments: sedation ZOSTRIX-HP (CAPSAICIN) 08/23/2005 Date Reviewed: 02/06/2023 Reviewed by: Rauhl Andre LPN - Fully Assessed Reason for Visit: Results [95] Prescriptions as of 03/01/2023 - topiramate (TOPAMAX) 100 mg tablet Take 2 tablets by mouth twice daily. - Zinc Sulfate 50 mg zinc (220 mg) tab Take 0.2273 tablets by mouth once daily. - cholecalciferol (VITAMIN D3) 5,000 unit tab Take 1 tablet by mouth once daily. - ferrous sulfate 325 mg (65 mg iron) tablet Take 1 tablet by mouth daily with breakfast. - tiZANidine (ZANAFLEX) 4 mg tablet Take 2 tablets by mouth every 6 hours as needed (muscle spasms). - traZODone (DESYREL) 150 mg tablet Take 1 tablet by mouth daily at bedtime. - simethicone, chewable (MYLICON) 80 mg chewable tablet Take 1 tablet by mouth three times daily as needed. - DULoxetine (CYMBALTA) 60 mg capsule Take 1 capsule by mouth twice daily. - gabapentin (NEURONTIN) 600 mg tablet Take 1 tablet by mouth three times daily for 90 days. - levothyroxine (LEVOXYL) 88 mcg tablet Take 1 tablet by mouth once daily. Take on empty stomach. For Thyroid - potassium chloride ER (K-DUR, KLOR-CON) 20 mEq tablet Take 1 tablet by mouth three times daily. - busPIRone (BUSPAR) 10 mg tablet Take 1 tablet by mouth three times daily. - naloxone 4 mg/actuation nasal spray (NARCAN) Use 1 spray in one nostril as needed for overdose. May repeat every 2 to 3 min in alternating nostrils until medical assistance is available - Zinc 50 mg tab Take 1 tablet by mouth once daily. - alendronate (FOSAMAX) 70 mg tablet Take 1 tablet by mouth one time a week. Take with a full glass of water, on an empty stomach; do NOT lie down for 30minutes. - calcium carbonate 600 mg-cholecalciferol 200 units (CALCIUM 600 + D,3,) 600 mg(1,500mg) -200 unit tab Take 1 tablet by mouth twice daily. - naloxone (NARCAN) 4 mg/actuation nasal spray 1 [place] by nasal (alternating) route as directed for 1 dose. 1 spray into 1 nostril. Additional doses may be given every 2-3 minutes until emergency arrives. - fluticasone (FLONASE) 50 mcg/actuation nasal spray Use 2 Sprays in each nostril once daily. Rinse mouth after use. - albuterol HFA (PROVENTIL HFA, VENTOLIN HFA) 90 mcg/actuation inhaler Inhale 2 Puffs as instructed every 4 hours as needed for Wheezing/Shortness of Breath. - blood sugar diagnostic (ONETOUCH ULTRA TEST) test strip test once/day. DX 250.00 no insulin - Blood-Glucose Meter (ONETOUCH ULTRA SYSTEM KIT) monitoring kit test one time daily dx 250.00 no insulin Meds Comments as of 04/14/2013: Problem List As Of Date 03/01/2023 Noted Resolved IRRITABLE COLON [K58.9] Hypothyroidism [E03.9] Disorders of bursae and tendons in shoulder reg*12/02/2006 09/29/2015 Plantar fascial fibromatosis [M72.2] 10/13/2008 09/29/2015 Photosensitivity Disorder [L56.8] 10/10/2009 Iron deficiency anemia [D50.9] 01/10/2010 06/19/2018 Diabetes Mellitus [E11.9] 04/20/2010 10/14/2014 Hyperlipidemia with target LDL less than 100 [E*06/26/2010 Vitamin d deficiency [E55.9] 09/16/2012 Fibromyalgia [M79.7] 12/05/2012 Rheumatoid arthritis involving multiple sites (*02/11/2013 Abdominal pain, unspecified site [R10.9] 04/14/2013 09/29/2015 Pubic bone pain [M89.9] 04/14/2013 09/29/2015 Incisional hernia [K43.2] 04/06/2014 10/22/2020 Hypoglycemia after GI (gastrointestinal) surger*04/30/2014 09/29/2015 Chronic migrain (more content not included)... Normal [facility] [place] 02-24-2023 [facility]UL[facility] ([id number]) 1965 F NFR Date Time Provider Department 02/24/23 MARSHA MACIAS During your visit today, we recorded the following information about you: Marsha Macias APRN.SUPERVISOR INSTRUMENT MAINTENANCE 02/24/2023 11:21 AM Signed Can please let patient know that we received her knee xray results. It does look like the arthritic changes have progressed/worsened. It also looks like there is a little corner fracture/avulsion fracture in the right knee. Please follow-up with ortho, as planned. I also forwarded the xray results to the provider she is scheduled to see. Marsha Macias APRN.SUPERVISOR INSTRUMENT MAINTENANCE Sena Lopez MA 02/25/2023 1:22 PM Signed Patient notified and verbalized understanding. Sena Lopez MA Allergies As of Date: 02/24/2023 Noted Allergy Reaction BACTRIM (SULFAMETHOXAZOLE-TRIM ETH*05/04/2005 8 - GI Upset Comments: diarrhea BENZAMYCIN (ERYTHROMYCIN-BENZOYL *08/01/2005 5 - Intolerance Comments: Gastric upset ELAVIL (AMITRIPTYLINE) 12/18/2019 8 - GI Upset Comments: nausea environmental [Other] 08/19/2007 Comments: cats GUIAFEN-PSE (PSEUDOEPHEDRINE-GUAI* 04/14/2011 6 - Diarrhea HUMIRA (ADALIMUMAB) 04/07/2013 2 - Rash Comments: hair loss LODINE (ETODOLAC) 10/11/2005 8 - GI Upset METHOTREXATE 04/05/2014 14 - Other: See Comments Comments: SANDY NEURONTIN (GABAPENTIN) 08/01/2005 NSAIDS (NON-STEROIDAL ANTI-INFLAM*07/06/2019 14 - Other: See Comments Comments: high risk of peptic ulcer disease (s/p gastric bypass) ULTRAM (TRAMADOL HCL) 08/01/2005 6 - Diarrhea VICODIN (HYDROCODONE-ACETAMINO PHE*05/04/2005 1 - Mental Status Change VOLTAREN (DICLOFENAC SODIUM) 08/29/2005 Comments: sedation ZOSTRIX-HP (CAPSAICIN) 08/23/2005 Date Reviewed: 02/06/2023 Reviewed by: Rahul Andre LPN - Fully Assessed Reason for Visit: Results [95] Prescriptions as of 02/25/2023 - topiramate (TOPAMAX) 100 mg tablet Take 2 tablets by mouth twice daily. - Zinc Sulfate 50 mg zinc (220 mg) tab Take 0.2273 tablets by mouth once daily. - cholecalciferol (VITAMIN D3) 5,000 unit tab Take 1 tablet by mouth once daily. - ferrous sulfate 325 mg (65 mg iron) tablet Take 1 tablet by mouth daily with breakfast. - tiZANidine (ZANAFLEX) 4 mg tablet Take 2 tablets by mouth every 6 hours as needed (muscle spasms). - traZODone (DESYREL) 150 mg tablet Take 1 tablet by mouth daily at bedtime. - simethicone, chewable (MYLICON) 80 mg chewable tablet Take 1 tablet by mouth three times daily as needed. - DULoxetine (CYMBALTA) 60 mg capsule Take 1 capsule by mouth twice daily. - gabapentin (NEURONTIN) 600 mg tablet Take 1 tablet by mouth three times daily for 90 days. - levothyroxine (LEVOXYL) 88 mcg tablet Take 1 tablet by mouth once daily. Take on empty stomach. For Thyroid - potassium chloride ER (K-DUR, KLOR-CON) 20 mEq tablet Take 1 tablet by mouth three times daily. - busPIRone (BUSPAR) 10 mg tablet Take 1 tablet by mouth three times daily. - naloxone 4 mg/actuation nasal spray (NARCAN) Use 1 spray in one nostril as needed for overdose. May repeat every 2 to 3 min in alternating nostrils until medical assistance is available - Zinc 50 mg tab Take 1 tablet by mouth once daily. - alendronate (FOSAMAX) 70 mg tablet Take 1 tablet by mouth one time a week. Take with a full glass of water, on an empty stomach; do NOT lie down for 30minutes. - calcium carbonate 600 mg-cholecalciferol 200 units (CALCIUM 600 + D,3,) 600 mg(1,500mg) -200 unit tab Take 1 tablet by mouth twice daily. - naloxone (NARCAN) 4 mg/actuation nasal spray 1 [place] by nasal (alternating) route as directed for 1 dose. 1 spray into 1 nostril. Additional doses may be given every 2-3 minutes until emergency arrives. - fluticasone (FLONASE) 50 mcg/actuation nasal spray Use 2 Sprays in each nostril once daily. Rinse mouth after use. - albuterol HFA (PROVENTIL HFA, VENTOLIN HFA) 90 mcg/actuation inhaler Inhale 2 Puffs as instructed every 4 hours as needed for Wheezing/Shortness of Breath. - blood sugar diagnostic (ONETOUCH ULTRA TEST) test strip test once/day. DX 250.00 no insulin - Blood-Glucose Meter (ONETOUCH ULTRA SYSTEM KIT) monitoring kit test one time daily dx 250.00 no insulin Meds Comments as of 04/14/2013: Problem List As Of Date 02/24/2023 Noted Resolved IRRITABLE COLON [K58.9] Hypothyroidism [E03.9] Disorders of bursae and tendons in shoulder reg*12/02/2006 09/29/2015 Plantar fascial fibromatosis [M72.2] 10/13/2008 09/29/2015 Photosensitivity Disorder [L56.8] 10/10/2009 Iron deficiency anemia [D50.9] 01/10/2010 06/19/2018 Diabetes Mellitus [E11.9] 04/20/2010 10/14/2014 Hyperlipidemia with target LDL less than 100 [E*06/26/2010 Vitamin d deficiency [E55.9] 09/16/2012 Fibromyalgia [M79.7] 12/05/2012 Rheumatoid arthritis involving multiple sites (*02/11/2013 Abdominal pain, unspecified si (more content not included)... Normal [facility] XR Knee - bilateral 4 ViewsO rdered By: Cc Provider on 02-23-2023 Interpretation and review of laboratory results Abnormal [facility] Radiology Result ACTIONABLE Abnormal [facility] Comment on above: This report contains an incidental or actionable finding. This finding may be a new finding separate from the reason your provider ordered the imaging test or it may be an already known finding that needs additional or continued follow-up. Because of this incidental or actionable finding, you may need another test (imaging or a different type of test). Please contact your provider for the next steps. [facility] XR Knee - bilateral 4 Viewso n 02-23-2023 * * *Final Report* * * DATE OF EXAM: Feb 19 2023 12:10PM WOX [id number] - XR KNEE 4V AP/PA/LAT/[facility] JAI / PROCEDURE REASON: multiple diagnoses * * * * Physician Interpretation * * * * HISTORY: 57-YEAR-OLD FEMALE WITH Acute pain of both knees Acute pain of both knees . pain started 2 months ago, not able to stand due to allot of pain no inj TECHNIQUE: XR KNEE 4V AP/PA/LAT/[facility] JAI Laterality: BILATERAL Number of different views (projections): 4 each COMPARISON: Right knee done on 12/26/2021 and bilateral knee done on 06/01/2021 RESULT: Moderate to marked medial lateral compartment joint space narrowing with large cyst medially bilaterally. There is a small intra-articular corner fracture in the right medial tibial plateau through the subchondral cyst. Marked narrowing of patellofemoral joint bilaterally with osteophytes bilateral joint effusion. Bones are osteopenic. DIVISION OF RADIOLOGY Provider, [facility] - 02/23/2023 * * *Final Report* * * DATE OF EXAM: Feb 19 2023 12:10PM WOX [id number] - XR KNEE 4V AP/PA/LAT/[facility] JAI / PROCEDURE REASON: multiple diagnoses * * * * Physician Interpretation * * * * HISTORY: 57-YEAR-OLD FEMALE WITH Acute pain of both knees Acute pain of both knees . pain started 2 months ago, not able to stand due to allot of pain no inj TECHNIQUE: XR KNEE 4V AP/PA/LAT/[facility] JAI Laterality: BILATERAL Number of different views (projections): 4 each COMPARISON: Right knee done on 12/26/2021 and bilateral knee done on 06/01/2021 RESULT: Moderate to marked medial lateral compartment joint space narrowing with large cyst medially bilaterally. There is a small intra-articular corner fracture in the right medial tibial plateau through the subchondral cyst. Marked narrowing of patellofemoral joint bilaterally with osteophytes bilateral joint effusion. Bones are osteopenic. 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 SINCE THE PREVIOUS EXAMINATION THERE IS BEEN A SMALL INTRA-ARTICULAR CORNER FRACTURE INVOLVING THE LARGE CYST AT THE MEDIAL TIBIAL PLATEAU ON THE RIGHT. 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 ACTIONABLE RESULT: FOLLOW-UP Acuity: Findings: Recommendation: Time Frame: COMMUNICATION: Results will be communicated with the ordering provider via [facility] staff message or phone message by [facility] within 2 business days of report finalization. Algorithms for management of incidental imaging findings can be found on the [facility] Intranet Sharepoint site at: [email or web address]%20Incidenta l%20Findi ngs%20at%20Imaging/For ms/[email or web address] Health Careers Instructor: HERMES Transcribe Date/Time: Feb 23 2023 11:53A Dictated by : MELONIE HILLMAN MD This examination was interpreted and the report reviewed and electronically signed by: MELONIE HILLMAN MD on Feb 23 2023 11:59AM EST [facility] XR KNEE 4V AP/PA/LAT/MERCH B ILon 02-19-2023 XR KNEE 4V AP/PA/LAT/MER[facility] JAI * * *Final Report* * * DATE OF EXAM: Feb 19 2023 12:10PM WOX [id number] - XR KNEE 4V AP/PA/LAT/[facility] JAI / PROCEDURE REASON: multiple diagnoses * * * * Physician Interpretation * * * * HISTORY: 57-YEAR-OLD FEMALE WITH Acute pain of both knees Acute pain of both knees . pain started 2 months ago, not able to stand due to allot of pain no inj TECHNIQUE: XR KNEE 4V AP/PA/LAT/[facility] JAI Laterality: BILATERAL Number of different views (projections): 4 each COMPARISON: Right knee done on 12/26/2021 and bilateral knee done on 06/01/2021 RESULT: Moderate to marked medial lateral compartment joint space narrowing with large cyst medially bilaterally. There is a small intra-articular corner fracture in the right medial tibial plateau through the subchondral cyst. Marked narrowing of patellofemoral joint bilaterally with osteophytes bilateral joint effusion. Bones are osteopenic. 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 SINCE THE PREVIOUS EXAMINATION THERE IS BEEN A SMALL INTRA-ARTICULAR CORNER FRACTURE INVOLVING THE LARGE CYST AT THE MEDIAL TIBIAL PLATEAU ON THE RIGHT. 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 ACTIONABLE RESULT: FOLLOW-UP Acuity: Findings: Recommendation: Time Frame: COMMUNICATION: Results will be communicated with the ordering provider via [facility] staff message or phone message by Imaging Support Services within 2 business days of report finalization. Algorithms for management of incidental imaging findings can be found on the [facility] Intranet Sharepoint site at: [email or web address]%20Incidenta l%20Findi ngs%20at%20Imaging/For ms/[email or web address] Health Careers Instructor: HERMES Transcribe Date/Time: Feb 23 2023 11:53A Dictated by : MELONIE IHLLMAN MD This examination was interpreted and the report reviewed and electronically signed by: MELONIE HILLMAN MD on Feb 23 2023 11:59AM EST [id number] ACTIONABLE Invalid Interpretation Code [facility] XR Knee - bilateral 4 Viewso n 02-19-2023 Radiology Study observation (narrative) [facility] PAULINA MEI ([id number]) 1965 F NFR Date Time Provider Department 02/13/[address] [facility] During your visit today, we recorded the following information about you: Rahul Morgan 02/13/2023 4:23 PM Signed Patient is requesting a refill for prednisone 10 mg sent to [facility] in [place]. Please advise, thank you. Chloe Vega LPN 02/13/2023 4:35 PM Signed Spoke with patient and explained to her that prednisone is not something that she will continue to take. She was just requesting refill because she was almost out and it was really helping so she didn't want to run out. Advised her that this is what we wanted to happen. This is good that it is helping so much. Finish up the prednisone and keep ortho appt. Allergies As of Date: 02/13/2023 Noted Allergy Reaction BACTRIM (SULFAMETHOXAZOLE-TRIM ETH*05/04/2005 8 - GI Upset Comments: diarrhea BENZAMYCIN (ERYTHROMYCIN-BENZOYL *08/01/2005 5 - Intolerance Comments: Gastric upset ELAVIL (AMITRIPTYLINE) 12/18/2019 8 - GI Upset Comments: nausea environmental [Other] 08/19/2007 Comments: cats GUIAFEN-PSE (PSEUDOEPHEDRINE-GUAI* 04/14/2011 6 - Diarrhea HUMIRA (ADALIMUMAB) 04/07/2013 2 - Rash Comments: hair loss LODINE (ETODOLAC) 10/11/2005 8 - GI Upset METHOTREXATE 04/05/2014 14 - Other: See Comments Comments: SANDY NEURONTIN (GABAPENTIN) 08/01/2005 NSAIDS (NON-STEROIDAL ANTI-INFLAM*07/06/2019 14 - Other: See Comments Comments: high risk of peptic ulcer disease (s/p gastric bypass) ULTRAM (TRAMADOL HCL) 08/01/2005 6 - Diarrhea VICODIN (HYDROCODONE-ACETAMINO PHE*05/04/2005 1 - Mental Status Change VOLTAREN (DICLOFENAC SODIUM) 08/29/2005 Comments: sedation ZOSTRIX-HP (CAPSAICIN) 08/23/2005 Date Reviewed: 02/06/2023 Reviewed by: Rahul Andre LPN - Fully Assessed Reason for Visit: Refill Request [94] Prescriptions as of 02/13/2023 - topiramate (TOPAMAX) 100 mg tablet Take 2 tablets by mouth twice daily. - Zinc Sulfate 50 mg zinc (220 mg) tab Take 0.2273 tablets by mouth once daily. - cholecalciferol (VITAMIN D3) 5,000 unit tab Take 1 tablet by mouth once daily. - ferrous sulfate 325 mg (65 mg iron) tablet Take 1 tablet by mouth daily with breakfast. - predniSONE (DELTASONE) 10 mg tablet Take 4 tabs daily x 3 days, then 3 tabs x 3 days, 2 tabs x 3 days, then 1 tab x3 days with food. - tiZANidine (ZANAFLEX) 4 mg tablet Take 2 tablets by mouth every 6 hours as needed (muscle spasms). - traZODone (DESYREL) 150 mg tablet Take 1 tablet by mouth daily at bedtime. - simethicone, chewable (MYLICON) 80 mg chewable tablet Take 1 tablet by mouth three times daily as needed. - DULoxetine (CYMBALTA) 60 mg capsule Take 1 capsule by mouth twice daily. - gabapentin (NEURONTIN) 600 mg tablet Take 1 tablet by mouth three times daily for 90 days. - levothyroxine (LEVOXYL) 88 mcg tablet Take 1 tablet by mouth once daily. Take on empty stomach. For Thyroid - potassium chloride ER (K-DUR, KLOR-CON) 20 mEq tablet Take 1 tablet by mouth three times daily. - busPIRone (BUSPAR) 10 mg tablet Take 1 tablet by mouth three times daily. - naloxone 4 mg/actuation nasal spray (NARCAN) Use 1 spray in one nostril as needed for overdose. May repeat every 2 to 3 min in alternating nostrils until medical assistance is available - Zinc 50 mg tab Take 1 tablet by mouth once daily. - alendronate (FOSAMAX) 70 mg tablet Take 1 tablet by mouth one time a week. Take with a full glass of water, on an empty stomach; do NOT lie down for 30minutes. - calcium carbonate 600 mg-cholecalciferol 200 units (CALCIUM 600 + D,3,) 600 mg(1,500mg) -200 unit tab Take 1 tablet by mouth twice daily. - naloxone (NARCAN) 4 mg/actuation nasal spray 1 [place] by nasal (alternating) route as directed for 1 dose. 1 spray into 1 nostril. Additional doses may be given every 2-3 minutes until emergency arrives. - fluticasone (FLONASE) 50 mcg/actuation nasal spray Use 2 Sprays in each nostril once daily. Rinse mouth after use. - albuterol HFA (PROVENTIL HFA, VENTOLIN HFA) 90 mcg/actuation inhaler Inhale 2 Puffs as instructed every 4 hours as needed for Wheezing/Shortness of Breath. - blood sugar diagnostic (ONEHightailUCH ULTRA TEST) test strip test once/day. DX 250.00 no insulin - Blood-Glucose Meter (QwicklyUCH ULTRA SYSTEM KIT) monitoring kit test one time daily dx 250.00 no insulin Meds Comments as of 04/14/2013: Problem List As Of Date 02/13/2023 Noted Resolved IRRITABLE COLON [K58.9] Hypothyroidism [E03.9] Disorders of bursae and tendons in shoulder reg*12/02/2006 09/29/2015 Plantar fascial fibromatosis [M72.2] 10/13/2008 09/29/2015 Photosensitivity Disorder [L56.8] 10/10/2009 Iron deficiency anemia [D50.9] 01/10/2010 06/19/2018 Diabetes Mellitus [E11.9] 04/20/2010 10/14/2014 Hyperlipidemia with target LDL less than 100 [E*06/26/2010 Vitamin (more content not included)... Normal [facility] CNPNon 02-08-2023 CNPN Telephone (FAMFrankWS) PAULINA MEI ([id number]) 1965 F NFR Date Time Provider Department 02/08/23 MARSHA MACIAS During your visit today, we recorded the following information about you: Marita Bowden FIBERGLASS BONDING MACHINE TENDER 02/08/2023 4:48 PM Signed Patient calling she has her normal pain management appt [facility] He said he will not give her anything for the knee pain. Right now she takes 3 Percocet daily from him, she said it does not even touch her knee pain. She has to use a walker and cries when she is up moving around. Patient is asking if ASSEMBLY MACHINE OFFBEARER would give her something for the knee pain? Patient uses [email or web address] for her pharmacy. Please advise Marsha Macias APRN.SUPERVISOR INSTRUMENT MAINTENANCE 02/08/2023 5:19 PM Signed Unfortunately, there is nothing stronger I can give her for pain. She can definitely continue the prednisone taper. She can also use ice to the knees, as well as topicals (ie liliane ramires, icy hot, biofreeze, etc). Please don't forget to get the xrays done of her knees. If her pain is severe, then I would recommend evaluation in the ER. Her labwork did come back. It does show that her zinc, vitamin D, and iron were low. I would suggest that she resumes taking these things. Does she need new scripts sent for these things? Chloe Vega LPN 02/11/2023 9:11 AM Signed Patient was notified of below message. Asking to have orders sent to pharmacy for meds states that she is out of them. Allergies As of Date: 02/08/2023 Noted Allergy Reaction BACTRIM (SULFAMETHOXAZOLE-TRIM ETH*05/04/2005 8 - GI Upset Comments: diarrhea BENZAMYCIN (ERYTHROMYCIN-BENZOYL *08/01/2005 5 - Intolerance Comments: Gastric upset ELAVIL (AMITRIPTYLINE) 12/18/2019 8 - GI Upset Comments: nausea environmental [Other] 08/19/2007 Comments: cats GUIAFEN-PSE (PSEUDOEPHEDRINE-GUAI* 04/14/2011 6 - Diarrhea HUMIRA (ADALIMUMAB) 04/07/2013 2 - Rash Comments: hair loss LODINE (ETODOLAC) 10/11/2005 8 - GI Upset METHOTREXATE 04/05/2014 14 - Other: See Comments Comments: SANDY NEURONTIN (GABAPENTIN) 08/01/2005 NSAIDS (NON-STEROIDAL ANTI-INFLAM*07/06/2019 14 - Other: See Comments Comments: high risk of peptic ulcer disease (s/p gastric bypass) ULTRAM (TRAMADOL HCL) 08/01/2005 6 - Diarrhea VICODIN (HYDROCODONE-ACETAMINO PHE*05/04/2005 1 - Mental Status Change VOLTAREN (DICLOFENAC SODIUM) 08/29/2005 Comments: sedation ZOSTRIX-HP (CAPSAICIN) 08/23/2005 Date Reviewed: 02/06/2023 Reviewed by: Rahul Andre LPN - Fully Assessed Reason for Visit: Patient Question [4947] Visit Diagnosis:Iron deficiency anemia, unspecified iron deficiency anemia type [D50.9] Order(s):Zinc Sulfate 50 mg zinc (220 mg) tabTake 0.2273 tablets by mouth once daily.Disp: 30 tabletRfl: 5 cholecalciferol (VITAMIN D3) 5,000 unit tabTake 1 tablet by mouth once daily.Disp: 30 tabletRfl: 5 ferrous sulfate 325 mg (65 mg iron) tabletTake 1 tablet by mouth daily with breakfast.Disp: 30 tabletRfl: 5 Prescriptions as of 02/11/2023 - Zinc Sulfate 50 mg zinc (220 mg) tab Take 0.2273 tablets by mouth once daily. - cholecalciferol (VITAMIN D3) 5,000 unit tab Take 1 tablet by mouth once daily. - ferrous sulfate 325 mg (65 mg iron) tablet Take 1 tablet by mouth daily with breakfast. - predniSONE (DELTASONE) 10 mg tablet Take 4 tabs daily x 3 days, then 3 tabs x 3 days, 2 tabs x 3 days, then 1 tab x3 days with food. - tiZANidine (ZANAFLEX) 4 mg tablet Take 2 tablets by mouth every 6 hours as needed (muscle spasms). - traZODone (DESYREL) 150 mg tablet Take 1 tablet by mouth daily at bedtime. - simethicone, chewable (MYLICON) 80 mg chewable tablet Take 1 tablet by mouth three times daily as needed. - DULoxetine (CYMBALTA) 60 mg capsule Take 1 capsule by mouth twice daily. - topiramate (TOPAMAX) 100 mg tablet Take 2 tablets by mouth twice daily. - gabapentin (NEURONTIN) 600 mg tablet Take 1 tablet by mouth three times daily for 90 days. - levothyroxine (LEVOXYL) 88 mcg tablet Take 1 tablet by mouth once daily. Take on empty stomach. For Thyroid - potassium chloride ER (K-DUR, KLOR-CON) 20 mEq tablet Take 1 tablet by mouth three times daily. - busPIRone (BUSPAR) 10 mg tablet Take 1 tablet by mouth three times daily. - naloxone 4 mg/actuation nasal spray (NARCAN) Use 1 spray in one nostril as needed for overdose. May repeat every 2 to 3 min in alternating nostrils until medical assistance is available - Zinc 50 mg tab Take 1 tablet by mouth once daily. - alendronate (FOSAMAX) 70 mg tablet Take 1 tablet by mouth one time a week. Take with a full glass of water, on an empty stomach; do NOT lie down for 30minutes. - calcium carbonate 600 mg-cholecalciferol 200 units (CALCIUM 600 + D,3,) 600 mg(1,500mg) -200 unit tab Take 1 tablet by mouth twice daily. - naloxone (NARCAN) 4 mg/actuation nasal spray 1 [place] by nasal (alternati (more content not included)... Normal [facility] Comprehensive metabolic 2000 panelon 02-07-2023 Albumin [Mass/Vol] 3.3 g/dL Low 3.9 - 4.9 g/dL [facility] ALP [Catalytic activity/Vol] 206 U/L High 34 - 123 U/L [facility] ALT [Catalytic activity/Vol] 17 U/L 7 - 38 U/L [facility] Anion gap [Moles/Vol] 11 mmol/L 9 - 18 mmol/L [facility] AST [Catalytic activity/Vol] 11 U/L Low 13 - 35 U/L [facility] Bilirubin [Mass/Vol] Low 0.2 - 1.3 mg/dL [facility] Calcium [Mass/Vol] 8.4 mg/dL Low 8.5 - 10. 2 mg/dL [facility] Chloride [Moles/Vol] 110 mmol/L High 97 - 105 mmol/L [facility] CO2 [Moles/Vol] 20 mmol/L Low 22 - 30 mmol/L [facility] Creatinine [Mass/Vol] 0.57 mg/dL Low 0.58 - 0.96 mg/dL [facility] Estimated Glomerular Filtration Rate 106 mL/min/1.73m >=60 mL/min/1.73m [facility] Glucose [Mass/Vol] 95 mg/dL 74 - 99 mg/dL [facility] Potassium [Moles/Vol] 4.0 mmol/L 3.7 - 5.1 mmol/L [facility] Protein [Mass/Vol] 6.5 g/dL 6.3 - 8.0 g/dL [facility] Sodium [Moles/Vol] 141 mmol/L 136 - 144 mmol/L [facility] Urea nitrogen [Mass/Vol] 17 mg/dL 7 - 21 mg/dL [facility] FERRITIN BLDon 02-07-2023 Ferritin [Mass/Vol] 24.5 ng/mL 14.7 - 2 05.1 ng/mL [facility] Iron and Iron binding capaci ty panelon 02-07-2023 Iron [Mass/Vol] 16 ug/dL Low 41 - 186 ug/dL [facility] Iron binding capacity [Mass/Vol] 315 ug/dL 232 - 386 ug/dL [facility] Iron/TIBC [Molar ratio] 5.1 % Low 15.0 - 57.0 % [facility] LIPID PANEL, NONFASTINGon Cholesterol [Mass/Vol] 150 mg/dL <200 mg/dL [facility] HDL Cholesterol, Nonfasting 47 mg/dL >39 mg/dL [facility] LDL Cholesterol, Nonfasting 88 mg/dL <100 mg/dL [facility] LDL/HDL Ratio, Nonfasting 1.87 mg/dL <2.54 mg/dL [facility] Non HDL Cholesterol, Nonfasting 103 mg/dL <130 mg/dL [facility] Total Chol/HDL Ratio, Nonfasting 3.19 mg/dL <5.10 mg/dL [facility] Triglycerides, Nonfasting 74 mg/dL <150 mg/dL [facility] VLDL Cholesterol, Nonfasting 15 mg/dL <30 mg/dL [facility] T4 FREE/FREE THYROXon 2022 Free T4 [Mass/Vol] 1.0 ng/dL 0.9 - 1.7 ng/dL [facility] TSH BLDon 02-07-2023 TSH Qn 3.660 m[IU]/L 0.270 - 4.200 mIU/L [facility] VITAMIN B12 BLOODon 02-08-20 Cobalamin (Vitamin B12) [Mass/Vol] 269 pg/mL 232 - 1,245 pg/mL [facility] VITAMIN D 25 HYDROXYon 02-07 25-hydroxyvitamin D3 [Mass/Vol] 7.9 ng/mL Low 31.0 - 80.0 ng/mL [facility] ZINC BLDon 02-07-2023 Zinc [Mass/Vol] 43 ug/dL Low 60 - 120 ug/dL [facility] 25(OH)D3 SerPl-mCncon 2022 25-hydroxyvitamin D3 [Mass/Vol] 7.9 ng/mL Low 31.0-80.0 [facility] Comment on above: Order Comment: Speci men Type: BLOOD SPECIMEN Ordering Facility: [facility] Address: [address] [place] [id number] Result Comment: Clas sification of 25 [place] Vitamin D status: Deficiency/Insufficiency: < or = 30 ng/ml. Sufficiency/Optimal Levels: 31-80 ng/mL Toxicity: > 100 ng/mL. Test performed by chemiluminescent immunoassay. Performed By: ### 5 7021-8 #### [facility] CLIA [id number] [address] [place] [address] [place] CBC W Auto Differential pane l (Bld)on 02-06-2023 Basophils (Bld) [#/Vol] <0.11 k/uL [facility] Basophils/100 WBC (Bld) 0.5 % [facility] Differential cell count method Nom (Bld) Auto [facility] Eosinophils (Bld) [#/Vol] 0.10 10*3/uL <0.46 k/uL [facility] Eosinophils/100 WBC (Bld) 2.7 % [facility] Erythrocyte distribution width (RBC) [Ratio] 16.1 % High 11.5 - 15.0 % [facility] Hematocrit (Bld) [Volume fraction] 36.6 % 36.0 - 46.0 % [facility] Hemoglobin (Bld) [Mass/Vol] 10.6 g/dL Low 11.5 - 15.5 g/dL [facility] Immature granulocytes (Bld) [#/Vol] <0.10 k/uL [facility] Immature granulocytes/100 WBC (Bld) 0.3 % [facility] Lymphocytes (Bld) [#/Vol] 1.15 10*3/uL 1.00 - 4.00 k/uL [facility] Lymphocytes/100 WBC (Bld) 30.9 % [facility] MCH (RBC) [Entitic mass] 23.0 pg Low 26.0 - 34.0 pg [facility] MCHC (RBC) [Mass/Vol] 29.0 g/dL Low 30.5 - 36.0 g/dL [facility] MCV (RBC) [Entitic vol] 79.6 fL Low 80.0 - 100.0 fL [facility] Monocytes (Bld) [#/Vol] 0.31 10*3/uL <0.87 k/uL [facility] Monocytes/100 WBC (Bld) 8.3 % [facility] Neutrophils (Bld) [#/Vol] 2.13 10*3/uL 1.45 - 7.50 k/uL [facility] Neutrophils/100 WBC (Bld) 57.3 % [facility] Nucleated RBC (Bld) [#/Vol] <0.01 k/uL [facility] Nucleated RBC/100 WBC (Bld) [Ratio] 0.0 /100 WBC [facility] Platelet mean volume (Bld) [Entitic vol] 9.6 fL 9.0 - 12.7 fL [facility] Platelets (Bld) [#/Vol] 290 10*3/uL 150 - 400 k/uL [facility] RBC (Bld) [#/Vol] 4.60 10*6/uL 3.90 - 5.2 0 m/uL [facility] WBC (Bld) [#/Vol] 3.72 10*3/uL 3.70 - 11. 00 k/uL [facility] Basophils (Bld) [#/Vol] 10*3/uL Normal <0.11 [facility] Comment on above: Order Comment: Speci men Type: BLOOD SPECIMEN Ordering Facility: [facility] Address: [address] [place] [address] Performed By: #### 5 7021-8 #### [facility] CLIA [id number] [address] [place] [address] [place] Basophils/100 WBC (Bld) 0.5 % Normal [facility] Comment on above: Order Comment: Speci men Type: BLOOD SPECIMEN Ordering Facility: [facility] Address: [address] [place] [address] Performed By: #### 5 7021-8 #### [facility] CLIA [id number] [address] [place] [address] [place] Differential cell count method Nom (Bld) Auto Normal [facility] Comment on above: Order Comment: Speci men Type: BLOOD SPECIMEN Ordering Facility: [facility] Address: [address] [place] [address] Performed By: #### 5 7021-8 #### [facility] CLIA [id number] [address] [place] [address] [place] Eosinophils (Bld) [#/Vol] 0.10 10*3/uL Normal <0.46 [facility] Comment on above: Order Comment: Speci men Type: BLOOD SPECIMEN Ordering Facility: [facility] Address: [address] Performed By: #### 5 7021-8 #### [facility] CLIA [id number] [address] [place] [address] [place] Eosinophils/100 WBC (Bld) 2.7 % Normal [facility] Comment on above: Order Comment: Speci men Type: BLOOD SPECIMEN Ordering Facility: [facility] Address: [address] Performed By: #### 5 7021-8 #### [facility] CLIA [id number] [address] [place] [address] [place] Erythrocyte distribution width (RBC) [Ratio] 16.1 % High 11.5-15.0 [facility] Comment on above: Order Comment: Speci men Type: BLOOD SPECIMEN Ordering Facility: [facility] Address: [address] Performed By: #### 5 7021-8 #### [facility] CLIA [id number] [address] [place] [address] [place] Hematocrit (Bld) [Volume fraction] 36.6 % Normal 36.0-46.0 [facility] Comment on above: Order Comment: Speci men Type: BLOOD SPECIMEN Ordering Facility: [facility] Address: [address] Performed By: #### 5 7021-8 #### [facility] CLIA [id number] [address] [place] [address] [place] Hemoglobin (Bld) [Mass/Vol] 10.6 g/dL Low 11.5-15.5 [facility] Comment on above: Order Comment: Speci men Type: BLOOD SPECIMEN Ordering Facility: [facility] Address: [address] Performed By: #### 5 7021-8 #### [facility] CLIA [id number] [address] [place] [address] [place] Immature granulocytes (Bld) [#/Vol] 10*3/uL Normal <0.10 [facility] Comment on above: Order Comment: Speci men Type: BLOOD SPECIMEN Ordering Facility: [facility] Address: [address] [place] [address] Performed By: #### 5 7021-8 #### [facility] CLIA [id number] [address] [place] [address] [place] Immature granulocytes/100 WBC (Bld) 0.3 % Normal [facility] Comment on above: Order Comment: Speci men Type: BLOOD SPECIMEN Ordering Facility: [facility] Address: [address] [place] [address] Performed By: #### 5 7021-8 #### [facility] CLIA [id number] [facility] [place] [address] [place] Lymphocytes (Bld) [#/Vol] 1.15 10*3/uL Normal 1.00-4.00 [facility] Comment on above: Order Comment: Speci men Type: BLOOD SPECIMEN Ordering Facility: [facility] Address: [address] [place], [place] [address] Performed By: #### 5 7021-8 #### [facility] CLIA [id number] [facility] [place] [address] [place] Lymphocytes/100 WBC (Bld) 30.9 % Normal [facility] Comment on above: Order Comment: Speci men Type: BLOOD SPECIMEN Ordering Facility: [facility] Address: [address] [place], [place] [address] Performed By: #### 5 7021-8 #### [facility] CLIA [id number] [address] [place] [address] [place] MCH (RBC) [Entitic mass] 23.0 pg Low 26.0-34.0 [facility] Comment on above: Order Comment: Speci men Type: BLOOD SPECIMEN Ordering Facility: [facility] Address: [address] Performed By: #### 5 7021-8 #### [facility] CLIA [id number] [address] [place] [address] [place] MCHC (RBC) [Mass/Vol] 29.0 g/dL Low 30.5-36.0 [facility] Comment on above: Order Comment: Speci men Type: BLOOD SPECIMEN Ordering Facility: [facility] Address: [address] Performed By: #### 5 7021-8 #### [facility] CLIA [id number] [address] [place] [address] [place] MCV (RBC) [Entitic vol] 79.6 fL Low 80.0-100.0 [facility] Comment on above: Order Comment: Speci men Type: BLOOD SPECIMEN Ordering Facility: [facility] Address: [address] Performed By: #### 5 7021-8 #### [facility] CLIA [id number] [address] [place] [address] [place] Monocytes (Bld) [#/Vol] 0.31 10*3/uL Normal <0.87 [facility] Comment on above: Order Comment: Speci men Type: BLOOD SPECIMEN Ordering Facility: [facility] Address: [address] Performed By: #### 5 7021-8 #### [facility] CLIA [id number] [address] [place] [address] [place] Monocytes/100 WBC (Bld) 8.3 % Normal [facility] Comment on above: Order Comment: Speci men Type: BLOOD SPECIMEN Ordering Facility: [facility] Address: [address] Performed By: #### 5 7021-8 #### [facility] CLIA [id number] [address] [place] [address] [place] Neutrophils (Bld) [#/Vol] 2.13 10*3/uL Normal 1.45-7.50 [facility] Comment on above: Order Comment: Speci men Type: BLOOD SPECIMEN Ordering Facility: [facility] Address: [address] Performed By: #### 5 7021-8 #### [facility] CLIA [id number] [address] [place] [address] [place] Neutrophils/100 WBC (Bld) 57.3 % Normal [facility] Comment on above: Order Comment: Speci men Type: BLOOD SPECIMEN Ordering Facility: [facility] Address: [address] [place], [place] [address] Performed By: #### 5 7021-8 #### [facility] CLIA [id number] [address] [place] [address] [place] Nucleated RBC (Bld) [#/Vol] 10*3/uL Normal <0.01 [facility] Comment on above: Order Comment: Speci men Type: BLOOD SPECIMEN Ordering Facility: [facility] Address: [address] [place], [place] [address] Performed By: #### 5 7021-8 #### [facility] CLIA [id number] [address] [place] [address] [place] Nucleated RBC/100 WBC (Bld) [Ratio] 0.0 /100 WBC Normal [facility] Comment on above: Order Comment: Speci men Type: BLOOD SPECIMEN Ordering Facility: [facility] Address: [address] [place], [place] [address] Performed By: #### 5 7021-8 #### [facility] CLIA [id number] [address] [place] [address] [place] Platelet mean volume (Bld) [Entitic vol] 9.6 fL Normal 9.0-12.7 [facility] Comment on above: Order Comment: Speci men Type: BLOOD SPECIMEN Ordering Facility: [facility] Address: [address] [place], [place] [address] Performed By: #### 5 7021-8 #### [facility] CLIA [id number] [address] [place] [address] [place] Platelets (Bld) [#/Vol] 290 10*3/uL Normal 150-400 [facility] Comment on above: Order Comment: Speci men Type: BLOOD SPECIMEN Ordering Facility: [facility] Address: [address] [place], [place] [address] Performed By: #### 5 7021-8 #### [facility] CLIA [id number] [address] [place] [address] [place] RBC (Bld) [#/Vol] 4.60 10*6/uL Normal 3.90-5.20 [facility] Comment on above: Order Comment: Speci men Type: BLOOD SPECIMEN Ordering Facility: [facility] Address: [address] [place], [place] [address] Performed By: #### 5 7021-8 #### [facility] CLIA [id number] [address] [place] [address] [place] WBC (Bld) [#/Vol] 3.72 10*3/uL Normal 3.70-11.00 [facility] Comment on above: Order Comment: Speci men Type: BLOOD SPECIMEN Ordering Facility: [facility] Address: [address] [place], [place] [address] Performed By: #### 5 7021-8 #### [facility] CLIA [id number] [address] [place] [address] [place] CNOVon 02-06-2023 [facility] PAULINA MEI ([id number]) 1965 F NFR Date Time Provider Department 02/06/23 3:40 PM MARSHA MACIAS During your visit today, we recorded the following information about you: Pulse Respiration Blood pressure 76/minute 16/minute 124/82 Marsha Macias APRN.SUPERVISOR INSTRUMENT MAINTENANCE 02/07/2023 2:55 PM Signed This is a 57 year old female who presents today with: Patient presents with: Knee Pain: Bilateral knee pain; L worse than R; no injury HISTORY OF PRESENT ILLNESS: Paulina Mei is a 57 year old female. Patient presents with: Knee Pain: Bilateral knee pain; L worse than R; no injury Pt presents today with complaint of bilateral knee pain. Has been going on for the last 1 1/2 - 2 months. Refers progressively worsening. Harder to walk and get around and do things. No injuries to the knees. No popping/cracking in the knees. Left will start to give out on her. Refers the pain never goes away. Pain is worse at night than during the day. Hx rheumatoid and osteoarthritis, as well as fibromyalgia. Currently she is followed with pain management. Taking percocet. Refers that the percocet hardly even touches the pain in her knees. Avoids nsaids d/t hx of gastric bypass. PAST MEDICAL HISTORY: PAST MEDICAL HISTORY Diagnosis Date Anemia 08/14/2017 Chronic insomnia 09/09/2017 Depression 11/17/2012 Elevated liver function tests 05/22/2012 Fibromyalgia Hyperlipidemia LDL goal < 100 06/26/2010 Hypoglycemia after GI (gastrointestinal) surgery 04/30/2014 Iron deficiency anemia, unspecified Iron malabsorption 12/02/2017 Irritable bowel syndrome Migraine, unspecified, without mention of intractable migraine without mention of status migrainosus Morbid obesity due to excess calories (HCC) 12/15/2015 Polyneuropathy in other diseases classified elsewhere ([facility]) Recurrent major depression in partial remission (HCC) 02/29/2020 Rheumatoid arthritis(714.0) Systemic lupus erythematosus arthritis (HCC) 03/18/2014 Unspecified asthma(493.90) Unspecified hypothyroidism Vitamin B 12 deficiency 11/22/2017 Vitamin D deficiency 09/16/2012 PAST SURGICAL HISTORY Procedure Laterality Date ARTHROSCOPY KNEE DIAGNOSTIC W/WO SYNOVIAL BX SPX Arthroscopy, knee CHOLECYSTECTOMY 1992 Cholecystectomy COLONOSCOPY 1999 ESOPHAGOGASTRODUODENOS COPY TRANSORAL DIAGNOSTIC 1994 EGD HERNIA REPAIR 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 LAPS SUPRACRV HYSTERECT 250 GM/< RMVL TUBE/OVAR 08/09 endometriosis and ovarian cysts (EDIT 03/2015 abdominal incision) PULMONARY FUNCTION TEST ALLERGIES Bactrim [Sulfamethoxazole-Trim ethoprim], Benzamycin [Erythromycin-Benzoyl Peroxide], Elavil [Amitriptyline], Environmental [Other], Guiafen-Pse [Pseudoephedrine-Guaif enesin], Humira [Adalimumab], Lodine [Etodolac], Methotrexate, Neurontin [Gabapentin], Nsaids (Non-Steroidal Anti-Inflammatory Drug), Ultram [Tramadol Hcl], Vicodin [Hydrocodone-Acetamino phen], Voltaren [Diclofenac Sodium], and Zostrix-Hp [Capsaicin] MEDICATIONS Current Outpatient Medications Medication Sig tiZANidine (ZANAFLEX) 4 mg tablet Take 2 tablets by mouth every 6 hours as needed (muscle spasms). traZODone (DESYREL) 150 mg tablet Take 1 tablet by mouth daily at bedtime. DULoxetine (CYMBALTA) 60 mg capsule Take 1 capsule by mouth twice daily. topiramate (TOPAMAX) 100 mg tablet Take 2 tablets by mouth twice daily. gabapentin (NEURONTIN) 600 mg tablet Take 1 tablet by mouth three times daily for 90 days. levothyroxine (LEVOXYL) 88 mcg tablet Take 1 tablet by mouth once daily. Take on empty stomach. For Thyroid albuterol HFA (PROVENTIL HFA, VENTOLIN HFA) 90 mcg/actuation inhaler Inhale 2 Puffs as instructed every 4 hours as needed for Wheezing/Shortness of Breath. simethicone, chewable (MYLICON) 80 mg chewable tablet Take 1 tablet by mouth three times daily as needed. potassium chloride ER (K-DUR, KLOR-CON) 20 mEq tablet Take 1 tablet by mouth three times daily. busPIRone (BUSPAR) 10 mg tablet Take 1 tablet by mouth three times daily. naloxone 4 mg/actuation nasal spray (NARCAN) Use 1 spray in one nostril as needed for overdose. May repeat every 2 to 3 min in alternating nostrils until medical assistance is available Zinc 50 mg tab Take 1 tablet by mouth once daily. alendronate (FOSAMAX) 70 mg tablet Take 1 tablet by mouth one time a week. Take with a full glass of water, on an empty stomach; do NOT lie down for 30minutes. calcium carbonate 600 mg-cholecalciferol 200 units (CALCIUM 600 + D,3,) 600 mg(1,500mg) -200 unit tab Take 1 tablet by mouth twice daily. cholecalciferol (VITAMIN D3) 5,000 unit tab Take 1 tablet by mouth once daily. naloxone (NARCAN) 4 mg/actuation nasal spray 1 [place] by nasal (alternating) route as directed for 1 dose. 1 spray into 1 nostril. Additional doses may be given every 2-3 minutes until (more content not included)... Normal [facility] Comprehensive metabolic 2000 panelon 02-06-2023 Albumin [Mass/Vol] 3.3 g/dL Low 3.9-4.9 [facility] Comment on above: Order Comment: Speci men Type: BLOOD SPECIMEN Ordering Facility: [facility] Address: [address] [address] Performed By: #### 5 7021-8 #### [facility] CLIA [id number] [facility] [place] [address] [place] ALP [Catalytic activity/Vol] 206 U/L High 34-123 [facility] Comment on above: Order Comment: Speci men Type: BLOOD SPECIMEN Ordering Facility: [facility] Address: [address] Performed By: #### 5 7021-8 #### [facility] CLIA [id number] [address] [place] ALT [Catalytic activity/Vol] 17 U/L Normal 7-38 [facility] Comment on above: Order Comment: Speci men Type: BLOOD SPECIMEN Ordering Facility: [facility] Address: [address] Performed By: #### 5 7021-8 #### [facility] CLIA [id number] [address] [place] [address] [place] Anion gap [Moles/Vol] 11 mmol/L Normal 9-18 [facility] Comment on above: Order Comment: Speci men Type: BLOOD SPECIMEN Ordering Facility: [facility] Address: [address] Performed By: #### 5 7021-8 #### [facility] CLIA [id number] [address] [place] [address] [place] AST [Catalytic activity/Vol] 11 U/L Low 13-35 [facility] Comment on above: Order Comment: Speci men Type: BLOOD SPECIMEN Ordering Facility: [facility] Address: [address] Performed By: #### 5 7021-8 #### [facility] CLIA [id number] [address] [place] [address] [place] Bilirubin [Mass/Vol] mg/dL Low 0.2-1.3 [facility] Comment on above: Order Comment: Speci men Type: BLOOD SPECIMEN Ordering Facility: [facility] Address: [address] Performed By: #### 5 7021-8 #### [facility] CLIA [id number] [address] [place] [address] [place] Calcium [Mass/Vol] 8.4 mg/dL Low 8.5-10.2 [facility] Comment on above: Order Comment: Speci men Type: BLOOD SPECIMEN Ordering Facility: [facility] Address: [address] Performed By: #### 5 7021-8 #### [facility] CLIA [id number] [address] [place] Chloride [Moles/Vol] 110 mmol/L High 97-105 [facility] Comment on above: Order Comment: Speci men Type: BLOOD SPECIMEN Ordering Facility: [facility] Address: [address] [place] [address] Performed By: #### 5 7021-8 #### [facility] CLIA [id number] [address] [place] [address] [place] CO2 [Moles/Vol] 20 mmol/L Low 22-30 [facility] Comment on above: Order Comment: Speci men Type: BLOOD SPECIMEN Ordering Facility: [facility] Address: [address] [place] [address] Performed By: #### 5 7021-8 #### [facility] CLIA [id number] [address] [place] Creatinine [Mass/Vol] 0.57 mg/dL Low 0.58-0.96 [facility] Comment on above: Order Comment: Speci men Type: BLOOD SPECIMEN Ordering Facility: [facility] Address: [address] [place] [address] Performed By: #### 5 7021-8 #### [facility] CLIA [id number] [facility] [address] [place] ESTIMATED GLOMERULAR FILTRATION RATE 106 mL/min/1.73m??? Normal >=60 [facility] Comment on above: Order Comment: Speci men Type: BLOOD SPECIMEN Ordering Facility: [facility] Address: [address] [place] [address] Result Comment: Rachel mated Glomerular Filtration Rate (eGFR) is calculated using the 2020 CKD-EPI creatinine equation. This equation utilizes serum creatinine, sex, and age as parameters. The creatinine assay has traceable calibration to isotope dilution-mass spectrometry. Refer to KDIGO guidelines for clinical interpretation. In patients with unstable renal function, e.g. those with acute kidney injury, the eGFR may not accurately reflect actual GFR. Performed By: #### 5 7021-8 #### [facility] CLIA [id number] [address] [place] [address] [place] Glucose [Mass/Vol] 95 mg/dL Normal 74-99 [facility] Comment on above: Order Comment: Speci men Type: BLOOD SPECIMEN Ordering Facility: [facility] Address: [address] [place] [address] Result Comment: The [place] Diabetes Association (ADA) provides guidance for cutoff values for fasting glucose and random glucose. The ADA defines fasting as no caloric intake for at least 8 hours. Fasting plasma glucose results between 100 to 125 mg/dL indicate increased risk for diabetes (prediabetes). Fasting plasma glucose results greater than or equal to 126 mg/dL meet the criteria for diagnosis of diabetes. In the absence of unequivocal hyperglycemia, results should be confirmed by repeat testing. In a patient with classic symptoms of hyperglycemia or hyperglycemic crisis, random plasma glucose results greater than or equal to 200 mg/dL meet the criteria for diagnosis of diabetes. Reference: Standards of Medical Care in Diabetes 2016, [place] [employer] Association. Diabetes Care. 2016.39(Suppl 1). Performed By: #### 5 7021-8 #### [facility] CLIA [id number] [address] [place] [address] [place] Potassium [Moles/Vol] 4.0 mmol/L Normal 3.7-5.1 [facility] Comment on above: Order Comment: Speci men Type: BLOOD SPECIMEN Ordering Facility: [facility] Address: [address] Performed By: #### 5 7021-8 #### [facility] CLIA [id number] [address] [id number] [place] Protein [Mass/Vol] 6.5 g/dL Normal 6.3-8.0 [facility] Comment on above: Order Comment: Arti men Type: BLOOD SPECIMEN Ordering Facility: [facility] Address: [address] Performed By: #### 5 7021-8 #### [facility] CLIA [id number] [address] [place] [address] [place] Sodium [Moles/Vol] 141 mmol/L Normal 136-144 [facility] Comment on above: Order Comment: Speci men Type: BLOOD SPECIMEN Ordering Facility: [facility] Address: [address] [place] [address] Performed By: #### 5 7021-8 #### [facility] CLIA [id number] [facility] [place] [address] [place] Urea nitrogen [Mass/Vol] 17 mg/dL Normal 7-21 [facility] Comment on above: Order Comment: Speci men Type: BLOOD SPECIMEN Ordering Facility: [facility] Address: [address] [place] [address] Performed By: #### 5 7021-8 #### [facility] CLIA [id number] [address] [place] [address] [place] Ferritin SerPl-mCncon 2022 Ferritin [Mass/Vol] 24.5 ng/mL Normal 14.7-205.1 [facility] Comment on above: Order Comment: Speci men Type: BLOOD SPECIMENOrdering Facility: [facility] Address: [address] [place] [address] Performed By: #### 2 132-9, 3016-3, 2276-4 ####[facility] [id number] [place] [address] [place] Iron and Iron binding capaci ty panelon 02-06-2023 Iron [Mass/Vol] 16 ug/dL Low 41-186 [facility] Comment on above: Order Comment: Speci men Type: BLOOD SPECIMEN Ordering Facility: [facility] Address: [address] [place] [address] Performed By: #### 5 7021-8 #### [facility] CLIA [id number] [address] [place] Iron binding capacity [Mass/Vol] 315 ug/dL Normal 232-386 [facility] Comment on above: Order Comment: Speci men Type: BLOOD SPECIMEN Ordering Facility: [facility] Address: [address] [place] [address] Performed By: #### 5 7021-8 #### [facility] CLIA [id number] [address] OF [facility] Iron/TIBC [Molar ratio] 5.1 % Low 15.0-57.0 [facility] Comment on above: Order Comment: Speci men Type: BLOOD SPECIMEN Ordering Facility: [facility] Address: [address] [place] [address] Performed By: #### 5 7021-8 #### [facility] CLIA [id number] [address] OF [facility] LIPID PANEL, NONFASTINGon Cholesterol [Mass/Vol] 150 mg/dL Normal <200 [facility] Comment on above: Order Comment: Speci men Type: BLOOD SPECIMEN Ordering Facility: [facility] Address: [address] [place], [place] [address] Result Comment: <200 mg/dL, Desirable 200-239 mg/dL, Borderline high >239 mg/dL, High Performed By: #### 5 7021-8 #### [facility] CLIA [id number] [address] [place] HDL CHOLESTEROL, NF 47 mg/dL Normal >39 [facility] Comment on above: Order Comment: Speci men Type: BLOOD SPECIMEN Ordering Facility: [facility] Address: [address] [place], [place] [address] Result Comment: 40-5 9 mg/dL, Acceptable >59 mg/dL, High: Negative risk factor for coronary heart disease <40 mg/dL, Low: Positive risk factor for coronary heart disease Performed By: #### 5 7021-8 #### [facility] CLIA [id number] [address] OF [facility] LDL CHOLESTEROL, NF 88 mg/dL Normal <100 [facility] Comment on above: Order Comment: Malick hussein Type: BLOOD SPECIMEN Ordering Facility: [facility] Address: [address] [place] [address] Result Comment: <100 mg/dL, Optimal 100-129 mg/dL, Near optimal/above optimal 130-159 mg/dL, Borderline high 160-189 mg/dL, High >189 mg/dL, Very high Secondary prevention optimal LDL Cholesterol levels are recommended to be < 70 mg/dL Performed By: #### 5 7021-8 #### [facility] CLIA [id number] [address] [place] [address] LDL/HDL RATIO, NF 1.87 mg/dL Normal <2.54 [facility] Comment on above: Order Comment: Malick hussein Type: BLOOD SPECIMEN Ordering Facility: [facility] Address: [address] [place] [address] Result Comment: Refe rence: 1. National Cholesterol Education Program ATP III Guideline At-A-Glance Quick Desk Reference: National Heart, Lung, and Blood Gould. National Institutes of Health. 2001: NIH Publication No. 01-3305. 2. An International Atherosclerosis Society position paper: global recommendations for the management of dyslipidemia: executive summary, Atherosclerosis. 2014: 232(2):410-413. Performed By: #### 5 7021-8 #### [facility] CLIA [id number] [address] [place] [address] OF [facility] NON HDL CHOL, NF 103 mg/dL Normal <130 [facility] Comment on above: Order Comment: Malick hussein Type: BLOOD SPECIMEN Ordering Facility: [facility] Address: [address] [place] [address] Result Comment: <130 mg/dL, Optimal 130-159 mg/dL, Near optimal/above optimal 160-189 mg/dL, Borderline high 190-219 mg/dL, High >219 mg/dL, Very high Secondary prevention optimal non HDL Cholesterol levels are recommended to be <100 mg/dL Performed By: #### 5 7021-8 #### [facility] CLIA [id number] [address] [place] [address] [place] T CHOL/HDL RATIO NF 3.19 mg/dL Normal <5.10 [facility] Comment on above: Order Comment: Speci men Type: BLOOD SPECIMEN Ordering Facility: [facility] Address: [address] [place] [address] Performed By: #### 5 7021-8 #### [facility] CLIA [id number] [address] [place] [address] [place] TRIGLYCERIDES, NF 74 mg/dL Normal <150 [facility] Comment on above: Order Comment: Speci men Type: BLOOD SPECIMEN Ordering Facility: [facility] Address: [address] [place] [address] Result Comment: <150 mg/dL, Normal 150-199 mg/dL, Borderline high 200-499 mg/dL, High >499 mg/dL, Very high Performed By: #### 5 7021-8 #### [facility] CLIA [id number] [address] [place] [address] [place] VLDL CHOLESTEROL, NF 15 mg/dL Normal <30 [facility] Comment on above: Order Comment: Speci men Type: BLOOD SPECIMEN Ordering Facility: [facility] Address: [address] [place], [place] [address] Performed By: #### 5 7021-8 #### [facility] CLIA [id number] [address] [place] [address] [place] T4 Free SerPl-mCncon 023 Free T4 [Mass/Vol] 1.0 ng/dL Normal 0.9-1.7 [facility] Comment on above: Order Comment: Speci men Type: BLOOD SPECIMEN Ordering Facility: [facility] Address: [address] [place] [address] Performed By: #### 5 7021-8 #### [facility] CLIA [id number] [address] [place] [address] [place] TSH SerPl-aCncon 02-06-2023 TSH Qn 3.660 m[IU]/L Normal 0.270-4.200 [facility] Comment on above: Order Comment: Speci men Type: BLOOD SPECIMENOrdering Facility: [facility] Address: [address] [place] [address] Performed By: #### 2 132-9, 3016-3, 2276-4 ####[facility] [id number] [place] [address] [place] Vit B12 SerPl-mCncon 023 Cobalamin (Vitamin B12) [Mass/Vol] 269 pg/mL Normal 232-1245 [facility] Comment on above: Order Comment: Speci men Type: BLOOD SPECIMENOrdering Facility: [facility] Address: [address] [place] [address] Performed By: #### 2 132-9, 3016-3, 2276-4 ####[facility] [id number] [address] [place] Zinc SerPl-mCncon 02-06-2023 Zinc [Mass/Vol] 43 ug/dL Low 60-120 [facility] Comment on above: Order Comment: Speci men Type: BLOOD SPECIMEN Ordering Facility: [facility] Address: [address] [place] [address] Result Comment: This test was developed and its performance characteristics determined by [facility]'s [place] [facility] ([facility]). It has not been cleared or approved by the FDA. [facility] is regulated under CLIA as qualified to perform high-complexity testing. This test is used for clinical purposes. It should not be regarded as investigational or for research. Performed By: #### 5 7021-8 #### [facility] CLIA [id number] [address] [place], [place] [id number] [place] [facility] Wyatt 12-26-2022 CNPN Telephone (FAMPWS) SIGIFREDOPAULINA Shen ([id number]) 1965 F NFR Date Time Provider Department 12/26/22 Jocelyn WOLFF During your visit today, we recorded the following information about you: Luz Chaparro LPN 12/26/2022 11:10 AM Signed Sister calling to let you know a parent has and pt upset to point of vomiting. They are asking for something to help calm pt down. Declined apt in the office at this time. Please advise sister. Luz Mclean MD 12/26/2022 12:39 PM Signed Reviewing chart, would defer to Dru on how to handle M Mary Wolff PA-C 12/26/2022 12:56 PM Signed Please communicate my condolences, I am very sorry to hear of her passing. I enjoyed taking care of her through the years. She is currently on the maximum amount of psychiatric medications I would be comfortable prescribing: tizanidine has tricyclic effects, mixed with trazedone, cymbalta, topamax, neurontin, and buspar. We are currently at risk of excess serotonin syndrome and adding further medications would not be recommended unless we wean off one of the other medications. Buspar is specifically for anxiety. I would encourage grief counseling through Hospice which is a free service. Thanks, INNA Hood Ma 12/26/2022 1:38 PM Signed Left message for patient sister to call back Kenzie Eller LPN 12/26/2022 3:01 PM Signed Spoke to pt's sister AND she states she wasn't asking for medication for pt's mood/anxiety, she is asking for something to help with nausea LUIS MANUEL vomiting. Please advise. Michaela Mclean MD 12/26/2022 3:20 PM Signed Dru has left for the day. Without knowing her, I would be hesitant to prescribe anything like that without seeing her. Please go over s/s of dehydration. Give all of her other meds, I would hold on something unless she cannot keep anything down at all. If that is occurring, would need seen here or ER Chloe Vega LPN 12/26/2022 3:37 PM Signed Added to triage schedule. Emy Jang Ma 12/27/2022 11:41 AM Signed Patient was triaged Allergies As of Date: 12/26/2022 Noted Allergy Reaction BACTRIM (SULFAMETHOXAZOLE-TRIM ETH*05/04/2005 8 - GI Upset Comments: diarrhea BENZAMYCIN (ERYTHROMYCIN-BENZOYL *08/01/2005 5 - Intolerance Comments: Gastric upset ELAVIL (AMITRIPTYLINE) 12/18/2019 8 - GI Upset Comments: nausea environmental [Other] 08/19/2007 Comments: cats GUIAFEN-PSE (PSEUDOEPHEDRINE-GUAI* 04/14/2011 6 - Diarrhea HUMIRA (ADALIMUMAB) 04/07/2013 2 - Rash Comments: hair loss LODINE (ETODOLAC) 10/11/2005 8 - GI Upset METHOTREXATE 04/05/2014 14 - Other: See Comments Comments: SANDY NEURONTIN (GABAPENTIN) 08/01/2005 NSAIDS (NON-STEROIDAL ANTI-INFLAM*07/06/2019 14 - Other: See Comments Comments: high risk of peptic ulcer disease (s/p gastric bypass) ULTRAM (TRAMADOL HCL) 08/01/2005 6 - Diarrhea VICODIN (HYDROCODONE-ACETAMINO PHE*05/04/2005 1 - Mental Status Change VOLTAREN (DICLOFENAC SODIUM) 08/29/2005 Comments: sedation ZOSTRIX-HP (CAPSAICIN) 08/23/2005 Date Reviewed: 04/26/2022 Reviewed by: Faye Beltran MD - Fully Assessed Reason for Visit: requesting medication [Other] Prescriptions as of 12/27/2022 - tiZANidine (ZANAFLEX) 4 mg tablet Take 2 tablets by mouth every 6 hours as needed (muscle spasms). - traZODone (DESYREL) 150 mg tablet Take 1 tablet by mouth daily at bedtime. - simethicone, chewable (MYLICON) 80 mg chewable tablet Take 1 tablet by mouth three times daily as needed. - DULoxetine (CYMBALTA) 60 mg capsule Take 1 capsule by mouth twice daily. - topiramate (TOPAMAX) 100 mg tablet Take 2 tablets by mouth twice daily. - gabapentin (NEURONTIN) 600 mg tablet Take 1 tablet by mouth three times daily for 90 days. - levothyroxine (LEVOXYL) 88 mcg tablet Take 1 tablet by mouth once daily. Take on empty stomach. For Thyroid - potassium chloride ER (K-DUR, KLOR-CON) 20 mEq tablet Take 1 tablet by mouth three times daily. - busPIRone (BUSPAR) 10 mg tablet Take 1 tablet by mouth three times daily. - naloxone 4 mg/actuation nasal spray (NARCAN) Use 1 spray in one nostril as needed for overdose. May repeat every 2 to 3 min in alternating nostrils until medical assistance is available - Zinc 50 mg tab Take 1 tablet by mouth once daily. - alendronate (FOSAMAX) 70 mg tablet Take 1 tablet by mouth one time a week. Take with a full glass of water, on an empty stomach; do NOT lie down for 30minutes. - calcium carbonate 600 mg-cholecalciferol 200 units (CALCIUM 600 + D,3,) 600 mg(1,500mg) -200 unit tab Take 1 tablet by mouth twice daily. - cholecalciferol (VITAMIN D3) 5,000 unit tab Take 1 tablet by mouth once daily. - naloxone (NARCAN) 4 mg/actuation nasal spray 1 [place] by nasal (alternating) route as directed for 1 dose. 1 spray into 1 nostril. (more content not included)... Normal [facility] Absolute lymphocyte counton 06-29-2022 Lymphocytes Auto (Unsp spec) [#/Vol] 1.85 10*3/uL 0.83-4.51 [facility] Work Phone: Basophil percentageon 2021 Basophils/100 WBC (Bld) 0.4 % 0-1 [facility] Work Phone: Chloride [Moles/Vol] 113 mmol/L 98-107 [facility] Work Phone: Eosinophils/100 WBC (Bld) 1.9 % 0-5 [facility] Work Phone: Glucose [Mass/Vol] 86 mg/dL 74-106 [facility] Work Phone: Neutrophils (Bld) [#/Vol] 3.0 10*3/uL 2.0-7.7 [facility] Work Phone: Neutrophils/100 WBC (Bld) 56.3 % 47-70 [facility] Work Phone: Potassium [Moles/Vol] 3.5 mmol/L 3.5-5.1 [facility] Work Phone: Sodium [Moles/Vol] 142 mmol/L 136-145 [facility] Work Phone: WBC (Bld) [#/Vol] 5.4 10*3/uL 4.4-11.0 [facility] Work Phone: Blood erythrocytes count (nu mber/volume)on 06-29-2022 RBC (Bld) [#/Vol] 4.16 10*6/uL 4.2-5.4 [facility] Work Phone: Blood hemoglobin measurement (mass/volume)on 06-29-2022 Hemoglobin (Bld) [Mass/Vol] 9.9 g/dL 12.0-15.0 [facility] Work Phone: Blood lymphocytes/100 leukoc yteson 06-29-2022 Lymphocytes/100 WBC (Bld) 34.5 % 19-41 [facility] Work Phone: Blood manual differential co mment interpretation (narrative result)on 06-29-2022 Manual differential comment Rolando (Bld) [Interp] SCANNED [facility] Work Phone: [phone] Blood monocytes/100 leukocyt eson 06-29-2022 Monocytes/100 WBC (Bld) 6.5 % 0-10 [facility] Work Phone: Blood platelet mean volumeon 06-29-2022 Platelet mean volume (Bld) [Entitic vol] 9.3 fL 6.2-12.0 [facility] Work Phone: Determination of erythrocyte mean corpuscular volume (MCV)on 06-29-2022 MCV (RBC) [Entitic vol] 80.8 fL 81-99 [facility] Work Phone: Hematocrit Auto (Bld) [Volum e fraction]on 06-29-2022 Hematocrit (Bld) [Volume fraction] 33.6 % 37-47 [facility] Work Phone: Laboratory - Chemistry and C hemistry - challengeon 06-29-2022 CO2 [Moles/Vol] 24.0 mmol/L 21.0-32.0 [facility] Work Phone: Urea nitrogen/Creatinine [Mass ratio] 28.3 mg/mg 10-20 [facility] Work Phone: Laboratory - Hematology and Cell countson 06-29-2022 Anisocytosis Ql (Bld) 1+ [facility] Work Phone: Erythrocyte distribution width (RBC) [Entitic vol] 64.5 fL 35.1-43.9 [facility] Work Phone: Erythrocyte distribution width (RBC) [Ratio] 22.6 % 11.6-14.6 [facility] Work Phone: Immature granulocytes/100 WBC (Bld) 0.400 % 0.0-0.9 [facility] Work Phone: Comment on above: IG% - Immature Granu locytes (promyelocytes, myelocytes and metamyelocytes) > 1% indicates that a LEFT SHIFT is Present. MCH (RBC) [Entitic mass] 23.8 pg 27.0-32.0 [facility] Work Phone: Nucleated RBC/100 WBC (Bld) [Ratio] 0 % 0-5 [facility] Work Phone: MCHC Auto (RBC) [Mass/Vol]on 06-29-2022 MCHC (RBC) [Mass/Vol] 29.5 g/dL 32-36 [facility] Work Phone: No Panel Informationon 06-29 Estimated Creatinine Clearance Calc 82.80 ml/min [facility] Work Phone: Estimated GFR (MDRD) Amer 133 mL/min >60 [facility] Work Phone: Comment on above: GFR Calc Estimated GFR (MDRD) Non-Af Amer 110 mL/min >60 [facility] Work Phone: Comment on above: Non- GFR Calc Platelets bldon 06-29-2022 Platelets (Bld) [#/Vol] 190 10*3/uL 150-450 [facility] Work Phone: Serum or plasma calcium loreto urement (mass/volume)on 06-29-2022 Calcium [Mass/Vol] 7.8 mg/dL 8.5-10.1 [facility] Work Phone: Serum or plasma creatinine m easurement (mass/volume)on 06-29-2022 Creatinine [Mass/Vol] 0.60 mg/dL 0.55-1.02 [facility] Work Phone: Comment on above: The validity of the calculated GFR & GFRAA in patients over 70 years has not been determined. Clinical correlation is essential. Serum or plasma urea nitroge n measurement (mass/volume)on 06-29-2022 Urea nitrogen [Mass/Vol] 17 mg/dL 7-18 [facility] Work Phone: Thin prep Papanicolaou smear with manual screeningon 06-29-2022 Thin prep Papanicolaou smear with manual screening 1+ [facility] Work Phone: Thin prep Papanicolaou smear with manual screening 5 5-15 [facility] Work Phone: Absolute lymphocyte counton 06-14-2022 Lymphocytes Auto (Unsp spec) [#/Vol] 1.22 10*3/uL 0.83-4.51 [facility] Work Phone: Basophil percentageon 2021 Basophils/100 WBC (Bld) 0.4 % 0-1 [facility] Work Phone: [phone] Chloride [Moles/Vol] 115 mmol/L 98-107 [facility] Work Phone: Eosinophils/100 WBC (Bld) 0.0 % 0-5 [facility] Work Phone: [phone] Glucose [Mass/Vol] 108 mg/dL 74-106 [facility] Work Phone: [phone] Comment on above: Fasting Glucose resu lt from 100 to 125 mg/dL suggests IMPAIRED HOMEOSTASIS per A.D.A. criteria. Neutrophils (Bld) [#/Vol] 3.2 10*3/uL 2.0-7.7 [facility] Work Phone: Neutrophils/100 WBC (Bld) 68.1 % 47-70 [facility] Work Phone: Potassium [Moles/Vol] 3.6 mmol/L 3.5-5.1 [facility] Work Phone: Sodium [Moles/Vol] 143 mmol/L 136-145 [facility] Work Phone: WBC (Bld) [#/Vol] 4.7 10*3/uL 4.4-11.0 [facility] Work Phone: Blood erythrocytes count (nu mber/volume)on 06-14-2022 RBC (Bld) [#/Vol] 4.97 10*6/uL 4.2-5.4 [facility] Work Phone: Blood hemoglobin measurement (mass/volume)on 06-14-2022 Hemoglobin (Bld) [Mass/Vol] 10.9 g/dL 12.0-15.0 [facility] Work Phone: Blood lymphocytes/100 leukoc yteson 06-14-2022 Lymphocytes/100 WBC (Bld) 25.8 % 19-41 [facility] Work Phone: Blood monocytes/100 leukocyt eson 06-14-2022 Monocytes/100 WBC (Bld) 5.3 % 0-10 [facility] Work Phone: Blood platelet mean volumeon 06-14-2022 Platelet mean volume (Bld) [Entitic vol] 10.4 fL 6.2-12.0 [facility] Work Phone: Determination of erythrocyte mean corpuscular volume (MCV)on 06-14-2022 MCV (RBC) [Entitic vol] 76.7 fL 81-99 [facility] Work Phone: Erythrocyte sedimentation ra naomie 06-14-2022 ESR (Bld) [Velocity] 13 mm/h 0-30 [facility] Work Phone: [phone] Hematocrit Auto (Bld) [Volum e fraction]on 06-14-2022 Hematocrit (Bld) [Volume fraction] 38.1 % 37-47 [facility] Work Phone: Iron measurement (mass/mass) on 06-14-2022 Iron (Unsp spec) [Mass/Mass] 15 ug/dL 50-170 [facility] Work Phone: Laboratory - Chemistry and C hemistry - challengeon 06-14-2022 Cobalamin (Vitamin B12) [Mass/Vol] 163 pg/mL 211-911 [facility] Work Phone: CO2 [Moles/Vol] 23.0 mmol/L 21.0-32.0 [facility] Work Phone: Magnesium [Mass/Vol] 2.5 mg/dL 1.6-2.6 [facility] Work Phone: Urea nitrogen/Creatinine [Mass ratio] 32.5 mg/mg 10-20 [facility] Work Phone: Laboratory - Hematology and Cell countson 06-14-2022 Erythrocyte distribution width (RBC) [Entitic vol] 47.9 fL 35.1-43.9 [facility] Work Phone: Erythrocyte distribution width (RBC) [Ratio] 17.3 % 11.6-14.6 [facility] Work Phone: Immature granulocytes/100 WBC (Bld) 0.400 % 0.0-0.9 [facility] Work Phone: Comment on above: IG% - Immature Granu locytes (promyelocytes, myelocytes and metamyelocytes) > 1% indicates that a LEFT SHIFT is Present. MCH (RBC) [Entitic mass] 21.9 pg 27.0-32.0 [facility] Work Phone: Nucleated RBC/100 WBC (Bld) [Ratio] 0 % 0-5 [facility] Work Phone: MCHC Auto (RBC) [Mass/Vol]on 06-14-2022 MCHC (RBC) [Mass/Vol] 28.6 g/dL 32-36 [facility] Work Phone: No Panel Informationon 06-14 Total Iron Binding Capacity 396 ug/dL 250-450 [facility] Work Phone: Estimated Creatinine Clearance Calc 80.13 ml/min [facility] Work Phone: Estimated GFR (MDRD) Amer 129 mL/min >60 [facility] Work Phone: Comment on above: GFR Calc Estimated GFR (MDRD) Non-Af Amer 106 mL/min >60 [facility] Work Phone: Comment on above: Non- GFR Calc Ionized Calcium 4.9 mg/dL 4.5-5.6 [facility] Work Phone: Comment on above: Performed at: [address] [id number] Director: Rogelio Flanagan PhD, Phone: [phone] Thyroid Stimulating Hormone (TSH) 2.01 uIU/mL 0.358-3.74 [facility] Work Phone: Platelets bldon 10-13-2022 Platelets (Bld) [#/Vol] 269 10*3/uL 150-450 [facility] Work Phone: Serum or plasma C reactive p rotein measurement (mass/volume)on 06-14-2022 CRP [Mass/Vol] mg/L 0.0-3.0 [facility] Work Phone: Comment on above: C-Reactive Protein ( CRP) provides useful information for thediagnosis, therapy and monitoring of inflammatory processesand associated diseases. For the evaluation of Relative Riskfor Cardiovascular Disease, a High Sensitivity CRP (HSCRP)should be ordered. Serum or plasma calcium loreto urement (mass/volume)on 06-14-2022 Calcium [Mass/Vol] 8.0 mg/dL 8.5-10.1 [facility] Work Phone: Serum or plasma creatinine m easurement (mass/volume)on 06-14-2022 Creatinine [Mass/Vol] 0.62 mg/dL 0.55-1.02 [facility] Work Phone: Comment on above: The validity of the calculated GFR & GFRAA in patients over 70 years has not been determined. Clinical correlation is essential. Serum or plasma ferritin estella surement (mass/volume)on 06-14-2022 Ferritin [Mass/Vol] 4 ng/mL 8-252 [facility] Work Phone: Serum or plasma folate measu rement (mass/volume)on 06-14-2022 Folate [Mass/Vol] 6.40 ng/mL 3.1-55.4 [facility] Work Phone: Serum or plasma iron saturat ion measurement (mass fraction)on 06-14-2022 Iron saturation [Mass fraction] 3.8 % 15.0-55.0 [facility] Work Phone: Serum or plasma urea nitroge n measurement (mass/volume)on 06-14-2022 Urea nitrogen [Mass/Vol] 20 mg/dL 7-18 [facility] Work Phone: Thin prep Papanicolaou smear with manual screeningon 06-14-2022 Thin prep Papanicolaou smear with manual screening 5 5-15 [facility] Work Phone: CNPAnita 03-15-2022 EMILY Telephone (AGSPHWG) SIGIFREDOPAULINA ([id number]) 1965 F NFR Date Time Provider Department 03/15/22 EUNICE OLIVAREZ AGSPHWG During your visit today, we recorded the following information about you: Eunice Olivarez APRN.PRESLEY 03/15/2022 4:44 PM Signed Patient most recent UDS was positive for for methadone. This is inconsistent with her OARRS and a direct violation of the pain agreement with our practice. Discussed with Dr. Beltran and at this time patient will be no more meds. Letter has been completed. Please advise patient that her April prescription has been discontinued. We advised that she begin to wean her Percocet as follow: Percocet 1 tablet p.o. every 8 hours x5 days, then Percocet 1 tablet p.o. every 12 hours x5 days. Then decrease to 1 tablet p.o. until gone Please advise patient. Thank you, Eunice Olivarez APRN.PRESLEY Schmidt 03/19/2022 11:05 AM Signed Called patient regarding No More Meds Letter, patient was notified - patient stated that she is shocked that UDS showed Methadone because she is not using that medication. Told patient that we will continues seeing her and treating her with nonopioid treatments. Patient wanted to know if she can go some place else to another practice to get narcotics, told patient that if that's what she wants she can go to any other practice for narcotics. No More meds letters mailed both Regular and Certified. JHON Guerrero APRN.PRESLEY 03/20/2022 7:44 AM Signed Dates corrected and new letter completed. Thank You, Eunice Olivarez, INFORMATICS MANAGER.SUPERVISOR INSTRUMENT MAINTENANCE Allergies As of Date: 03/15/2022 Noted Allergy Reaction BACTRIM (SULFAMETHOXAZOLE-TRIM ETH*05/04/2005 8 - GI Upset Comments: diarrhea BENZAMYCIN (ERYTHROMYCIN-BENZOYL *08/01/2005 5 - Intolerance Comments: Gastric upset ELAVIL (AMITRIPTYLINE) 12/18/2019 8 - GI Upset Comments: nausea environmental [Other] 08/19/2007 Comments: cats GUIAFEN-PSE (PSEUDOEPHEDRINE-GUAI* 04/14/2011 6 - Diarrhea HUMIRA (ADALIMUMAB) 04/07/2013 2 - Rash Comments: hair loss LODINE (ETODOLAC) 10/11/2005 8 - GI Upset METHOTREXATE 04/05/2014 14 - Other: See Comments Comments: SANDY NEURONTIN (GABAPENTIN) 08/01/2005 NSAIDS (NON-STEROIDAL ANTI-INFLAM*07/06/2019 14 - Other: See Comments Comments: high risk of peptic ulcer disease (s/p gastric bypass) ULTRAM (TRAMADOL HCL) 08/01/2005 6 - Diarrhea VICODIN (HYDROCODONE-ACETAMINO PHE*05/04/2005 1 - Mental Status Change VOLTAREN (DICLOFENAC SODIUM) 08/29/2005 Comments: sedation ZOSTRIX-HP (CAPSAICIN) 08/23/2005 Date Reviewed: 03/04/2022 Reviewed by: Martha Bolanos MA - Fully Assessed Reason for Visit: Results [95] Cmt: No More Meds Prescriptions as of 03/20/2022 - tiZANidine (ZANAFLEX) 4 mg tablet Take 2 tablets by mouth every 6 hours as needed (muscle spasms). - oxyCODONE-acetaminophe n (PERCOCET) 5-325 mg tablet Take 1 tablet by mouth every 6 hours as needed for pain (for pain.) for up to 30 days. - traZODone (DESYREL) 100 mg tablet Take 1 tablet by mouth daily at bedtime. - Zinc 50 mg tab Take 1 tablet by mouth once daily. - alendronate (FOSAMAX) 70 mg tablet Take 1 tablet by mouth one time a week. Take with a full glass of water, on an empty stomach; do NOT lie down for 30minutes. - DULoxetine (CYMBALTA) 60 mg capsule Take 1 capsule by mouth twice daily. - topiramate (TOPAMAX) 100 mg tablet Take 2 tablets by mouth twice daily. - calcium carbonate 600 mg-cholecalciferol 200 units (CALCIUM 600 + D,3,) 600 mg(1,500mg) -200 unit tab Take 1 tablet by mouth twice daily. - cholecalciferol (VITAMIN D3) 5,000 unit tab Take 1 tablet by mouth once daily. - LEVOXYL 88 mcg tablet Take 1 tablet by mouth once daily. Take on empty stomach. - naloxone (NARCAN) 4 mg/actuation nasal spray 1 [place] by nasal (alternating) route as directed for 1 dose. 1 spray into 1 nostril. Additional doses may be given every 2-3 minutes until emergency arrives. - fluticasone (FLONASE) 50 mcg/actuation nasal spray Use 2 Sprays in each nostril once daily. Rinse mouth after use. - albuterol HFA (PROVENTIL HFA, VENTOLIN HFA) 90 mcg/actuation inhaler Inhale 2 Puffs as instructed every 4 hours as needed for Wheezing/Shortness of Breath. - blood sugar diagnostic (ONETOUCH ULTRA TEST) test strip test once/day. 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 Normal [facility] UA DIP, URINE (POC)on 2021 BILIRUBIN UA (POCT) Negative Negative [facility] CLARITY UA (POCT) Slightly Cloudy Cl [facility] COLOR UA (POCT) Other [facility] GLUCOSE UA (POCT) Negative Negative mg/dL [facility] HEMOGLOBIN/BLOOD UA (POCT) Trace-intact Abnormal Negative [facility] KETONE UA (POCT) Negative Negative mg/dL [facility] LEUKOCYTES UA (POCT) Negative Negative [facility] NITRITE UA (POCT) Negative Negative [facility] PH UA (POCT) 5.5 4.5 - 8.0 [facility] Protein Ql (U) Negative Negative mg/dL [facility] SPECIFIC GRAVITY UA (POCT) >=1.030 1.005 - 1.030 [facility] UROBILINOGEN UA (POCT) 0.2 E.U./dL Normal E.U./dL [facility] CNOVon 03-01-2022 CNOV Office Visit (SPAGWO ) PAULINA MEI ([id number]) 1965 F NFR Date Time Provider Department 03/01/22 10:45 AM EUNICE OLIVAREZ During your visit today, we recorded the following information about you: Pulse Respiration Normal [facility] [place] 02-01-2022 CNPN Telephone (AGSPINE3) PAULINA MEI ([id number]) 1965 F NFR Date Time Provider Department 02/01/22 FAYE BELTRAN AGSPINE3 During your visit today, we recorded the following information about you: Holly Benjamin 02/01/2022 10:47 AM Addendum Patient left message on clinical line asking for a bridge script to be sent in to her preferred pharmacy for her Percocet 5. She has an appointment scheduled for March 01 with Eunice Olivarez APRN.CNP but is due to fill on the or she is unsure. Please review and advise. Holly Benjamin LPN February 01, 2022 10:45 AM Maria A Devine APRN.CNP 02/01/2022 12:41 PM Signed oarrs was checked- no medication discrepancy or aberrations noted Bridge rx sent Maria A Devine APRN.PRESLEY Devine APRN.CNP 02/01/2022 12:41 PM Signed Addended by: MARIA A DEVINE on: 02/01/2022 12:41 PM Modules accepted: Orders Dominique James MA 02/01/2022 3:33 PM Signed Attempted to contact patient, could not leave voicemail. Dominique James MA Allergies As of Date: 02/01/2022 Noted Allergy Reaction BACTRIM (SULFAMETHOXAZOLE-TRIM ETH*05/04/2005 8 - GI Upset Comments: diarrhea BENZAMYCIN (ERYTHROMYCIN-BENZOYL *08/01/2005 5 - Intolerance Comments: Gastric upset ELAVIL (AMITRIPTYLINE) 12/18/2019 8 - GI Upset Comments: nausea environmental [Other] 08/19/2007 Comments: cats GUIAFEN-PSE (PSEUDOEPHEDRINE-GUAI* 04/14/2011 6 - Diarrhea HUMIRA (ADALIMUMAB) 04/07/2013 2 - Rash Comments: hair loss LODINE (ETODOLAC) 10/11/2005 8 - GI Upset METHOTREXATE 04/05/2014 14 - Other: See Comments Comments: SANDY NEURONTIN (GABAPENTIN) 08/01/2005 NSAIDS (NON-STEROIDAL ANTI-INFLAM*07/06/2019 14 - Other: See Comments Comments: high risk of peptic ulcer disease (s/p gastric bypass) ULTRAM (TRAMADOL HCL) 08/01/2005 6 - Diarrhea VICODIN (HYDROCODONE-ACETAMINO PHE*05/04/2005 1 - Mental Status Change VOLTAREN (DICLOFENAC SODIUM) 08/29/2005 Comments: sedation ZOSTRIX-HP (CAPSAICIN) 08/23/2005 Date Reviewed: 12/23/2021 Reviewed by: Erna Kelley APRN.CNP - Fully Assessed Reason for Visit: Medication Request [138] Cmt: Percocet 5 Visit Diagnoses:Rheumatoid arthritis involving multiple sites, unspecified whether rheumatoid factor present ([facility]) [M06.9] intermediate prescription opiate use [Z79.891] Rheumatoid arthritis involving both hands with positive rheumatoid factor ([facility]) [M05.741, M05.742] Order(s):[START ON 02/10/2022] oxyCODONE-acetaminophe n (PERCOCET) 5-325 mg tabletTake 1 tablet by mouth every 6 hours as needed for pain for up to 19 days. Do not start before February 10, 2022.Disp: 76 tabletRfl: 0 Prescriptions as of 02/01/2022 - oxyCODONE-acetaminophe n (PERCOCET) 5-325 mg tablet Take 1 tablet by mouth every 6 hours as needed for pain for up to 19 days. Do not start before February 10, 2022. - ondansetron orally disintegrating (ZOFRAN ODT) 4 mg disintegrating tablet Take 1 tablet by mouth every 6 hours as needed for nausea/vomiting. - tiZANidine (ZANAFLEX) 4 mg tablet Take 2 tablets by mouth every 6 hours as needed (muscle spasms). - traZODone (DESYREL) 50 mg tablet Take 1.5 tablets by mouth daily at bedtime. - Zinc 50 mg tab Take 1 tablet by mouth once daily. - alendronate (FOSAMAX) 70 mg tablet Take 1 tablet by mouth one time a week. Take with a full glass of water, on an empty stomach; do NOT lie down for 30minutes. - DULoxetine (CYMBALTA) 60 mg capsule Take 1 capsule by mouth twice daily. - topiramate (TOPAMAX) 100 mg tablet Take 2 tablets by mouth twice daily. - calcium carbonate 600 mg-cholecalciferol 200 units (CALCIUM 600 + D,3,) 600 mg(1,500mg) -200 unit tab Take 1 tablet by mouth twice daily. - cholecalciferol (VITAMIN D3) 5,000 unit tab Take 1 tablet by mouth once daily. - LEVOXYL 88 mcg tablet Take 1 tablet by mouth once daily. Take on empty stomach. - naloxone (NARCAN) 4 mg/actuation nasal spray 1 [place] by nasal (alternating) route as directed for 1 dose. 1 spray into 1 nostril. Additional doses may be given every 2-3 minutes until emergency arrives. - fluticasone (FLONASE) 50 mcg/actuation nasal spray Use 2 Sprays in each nostril once daily. Rinse mouth after use. - albuterol HFA (PROVENTIL HFA, VENTOLIN HFA) 90 mcg/actuation inhaler Inhale 2 Puffs as instructed every 4 hours as needed for Wheezing/Shortness of Breath. - blood sugar diagnostic (ONETOUCH ULTRA TEST) test strip test once/day. DX 250.00 no insulin - Blood-Glucose Meter (ONETOUCH ULTRA SYSTEM KIT) monitoring kit test one time daily dx 250.00 no insulin Meds Comments as of 04/14/2013: Problem List As Of Date 02/01/2022 Noted Resolved IRRITABLE COLON [K58.9] Hypothyroidism [E03.9] Disorders of bursae and tendons in shoulder reg*12/02/2006 09/29/2015 Plantar fascial fibromatosis [M72.2] 10/13/2008 09/29/2015 Photosensitivity Disorder [L56.8] 10/10/2009 Iron (more content not included)... Normal [facility] XR Knee - right 4 Viewson IMPRESSION: Osteoarthrosis and osteopenia. Health Careers Instructor: HERMES Transcribe Date/Time: Dec 26 2021 2:12P Dictated by : DESIRAE OSPINA MD This examination was interpreted and the report reviewed and electronically signed by: DESIRAE OSPINA MD on Dec 26 2021 2:14PM EST [email or web address] E_DIVISION OF RADIOLOGY * * *Final Report* * * DATE OF EXAM: Dec 26 2021 2:10PM WOX [id number] - XR KNEE 4V AP/PA BOTH+LAT/KEYSHAWN RT / PROCEDURE REASON: Acute pain of right knee * * * * Physician Interpretation * * * * Right knee radiographs HISTORY: 56 years old Clinical information: Acute pain of right knee Patient fell x 3 days ago. Anterior right knee pain. TECHNIQUE: Images: XR KNEE 4V AP/PA BOTH+LAT/KEYSHAWN RT Comparison: June 01, 2021. RESULT: Findings: Diffuse osteopenia. Narrowing of medial compartment joint space. Narrowing of the patellofemoral joint space. Degenerative cyst involving the medial tibial plateau. Mild osteophyte formation involving the posterior aspect of the patella. No fracture or dislocation. Small joint effusion. No soft tissue abnormality identified. [email or web address] E_DIVISION OF RADIOLOGY Provider, Rosana oRssi - 12/26/2021 * * *Final Report* * * DATE OF EXAM: Dec 26 2021 2:10PM WOX 5203 - XR KNEE 4V AP/PA BOTH+LAT/KEYSHAWN RT / PROCEDURE REASON: Acute pain of right knee * * * * Physician Interpretation * * * * Right knee radiographs HISTORY: 56 years old Clinical information: Acute pain of right knee Patient fell x 3 days ago. Anterior right knee pain. TECHNIQUE: Images: XR KNEE 4V AP/PA BOTH+LAT/KEYSHAWN RT Comparison: June 01, 2021. RESULT: Findings: Diffuse osteopenia. Narrowing of medial compartment joint space. Narrowing of the patellofemoral joint space. Degenerative cyst involving the medial tibial plateau. Mild osteophyte formation involving the posterior aspect of the patella. No fracture or dislocation. Small joint effusion. No soft tissue abnormality identified. IMPRESSION IMPRESSION: Osteoarthrosis and osteopenia. Health Careers Instructor: PSCB Transcribe Date/Time: Dec 26 2021 2:12P Dictated by : DESIRAE OSPINA MD This examination was interpreted and the report reviewed and electronically signed by: DEISRAE OSPINA MD on Dec 26 2021 2:14PM EST [facility] Radiology Study observation (narrative) [facility] XR Knee - right 4 ViewsOrder ed By: Ccf Provider on 12-26-2021 [facility] DXA-AXIAL SKELETONon 022 [facility] CNOVon 11-23-2021 CNOV Office Visit (SPAGWO ) PAULINA MEI ([id number]) 1965 F NFR Date Time Provider Department 3/24/22 1:45 PM FAYE BELTRAN During your visit today, we recorded the following information about you: Faye Beltran MD 11/23/2021 2:29 PM Signed [facility] Name: Paulina Mei : 1965 Purpose: Follow-Up Evaluation Today's Date: 11/23/2021 - Most recent visit date: 08/10/2021 Chief Complaint (reason for call): diffuse body aches and pains Interval History: Since last encounter, Paulina Mei reports that the chronic problem(s) of diffuse body aches and pains are worse. When she has flare-ups, it impacts all her involved joints, including the shoulders, hands, feet and knees. Pain particularly bad at night. She is no longer taking daily steroids. She has not reestablished with a Hairspring Studder. Bone density scan was ordered, not obtained. In both cases, she reports that she cannot physically attend treatments due to her pain. She did not bring her pill bottles today. She reports again that when she takes the Percocet, it is not strong enough and that it wears off quickly. She reports that she was not told to come in for her drug screen in October. Cymbalta increased from 60mg daily to BID, no difference noted. She reports that she fell recently and hurt her knees. Her PCP decreased her Ambien. Recall: She has been diagnosed with peripheral neuropathy by Electrodiagnostic Study. HPI from 06/2021: Paulina Mei is a 55 year old female who presents for new patient evaluation joint pain. Patient has a longstanding history of rheumatoid arthritis. She is followed with [facility] rheumatology in the past last being about 3 years ago. She states she has been on Biologics injections and is trialed medications with that specialty with no relief in her pain. Patient reports generalized joint pain shoulders hands and feet and knees. She is currently following with orthopedist for her left knee pain they are discussing a knee replacement however she has to see a new specialist for her surgery. 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 She reports she is on daily steroids from her PCP. She reports her pain is currently controlled with her Percocet 5 mg tablets that she takes 4 times a day. This was a recent increase from 3 times a day only because she has had increased left knee pain. When asking for an increase with her family doctor they referred her here to evaluate for other alternatives. Patient reports that Percocet 4 times a day does reduce her pain however she is still and significant pain throughout the day. Patient denies any new falls or injuries. She denies any cervical or lumbar pain. She denies using any assistive devices with her ambulation. She is inquiring about pain medications today. Impression: 55 year old female with significant past medical history rheumatoid arthritis, osteoarthritis, lupus, and fibromyalgia who presents with complaint(s) of generalized joint pain most notably in her knees left greater than right. She also has hand and feet pain bilaterally with deformities present. Patient is currently on Percocet 5 #120 from PCP. She was sent to discuss increase in her medications. This recent increase to #120 does help control her pain a little better however she reports still having severe pain during the day. We discussed a possible rotation to [place] in the future. However I had like for her to meet with attending physician Dr. Beltran to further discuss her medication management as she is on several other classes of medications it is concerning for oversedation. She is currently on tizanidine, she is on trazodone and Ambien for sleep aids, neuropathic's to include Topamax, Cymbalta. Today I will refill her Percocet dosing that she is currently on she will also receive a prescription for Narcan as we discussed the purpose and the use of this device. Current Status: Opioid Medications requiring refills today: Percocet 5/325 Date last filled: 11/12/2021 Quantity filled: 120 How many left: Unknown Time most recent dose taken: Noon today Non-Opioid Medications requiring refills today: Cymbalta 60mg BID Topamax 100mg BID (PCP) Zanaflex 4mg 2-3 times daily PRN (PCP) Ibuprofen OTC - uses sparingly Compliance: Safety Checklist: - Are you taking proper precautions to safe guard your medication? Yes - Taking the medications as prescribed? Yes - Getting pain medications from another physician? No - Obtaining pain medication from another source? No - Sharing medications with friends/family? No - Quality of life improved as a result of taking these medications? Yes - Any side effect with this medication? No Justification for Continued Opioid Care: - Adequate analgesia? (more content not included)... [facility] CNPNon 11-23-2021 CNPN Telephone (SPAGWO) PAULINA MEI ([id number]) 1965 F NFR Date Time Provider Department 11/23/21 FAYE BELTRAN SPAGWO During your visit today, we recorded the following information about you: Fili Schilling 11/23/2021 2:50 PM Signed Sent in consult to Rheumatology, the confirmation number is [id number]. Allergies As of Date: 11/23/2021 Noted Allergy Reaction BACTRIM (SULFAMETHOXAZOLE-TRIM ETH*05/04/2005 8 - GI Upset Comments: diarrhea BENZAMYCIN (ERYTHROMYCIN-BENZOYL *08/01/2005 5 - Intolerance Comments: Gastric upset ELAVIL (AMITRIPTYLINE) 12/18/2019 8 - GI Upset Comments: nausea environmental [Other] 08/19/2007 Comments: cats GUIAFEN-PSE (PSEUDOEPHEDRINE-GUAI* 04/14/2011 6 - Diarrhea HUMIRA (ADALIMUMAB) 04/07/2013 2 - Rash Comments: hair loss LODINE (ETODOLAC) 10/11/2005 8 - GI Upset METHOTREXATE 04/05/2014 14 - Other: See Comments Comments: SANDY NEURONTIN (GABAPENTIN) 08/01/2005 NSAIDS (NON-STEROIDAL ANTI-INFLAM*07/06/2019 14 - Other: See Comments Comments: high risk of peptic ulcer disease (s/p gastric bypass) ULTRAM (TRAMADOL HCL) 08/01/2005 6 - Diarrhea VICODIN (HYDROCODONE-ACETAMINO PHE*05/04/2005 1 - Mental Status Change VOLTAREN (DICLOFENAC SODIUM) 08/29/2005 Comments: sedation ZOSTRIX-HP (CAPSAICIN) 08/23/2005 Date Reviewed: 11/23/2021 Reviewed by: Yajaira Morgan MA - Fully Assessed Reason for Visit: Patient Update [1234] Prescriptions as of 11/23/2021 - oxyCODONE-acetaminophe n (PERCOCET) 5-325 mg tablet Take 1 tablet by mouth every 6 hours as needed for pain for up to 30 days. Do not start before January 11, 2022. - oxyCODONE-acetaminophe n (PERCOCET) 5-325 mg tablet Take 1 tablet by mouth every 6 hours as needed for pain for up to 30 days. Do not start before December 12, 2021. - oxyCODONE-acetaminophe n (PERCOCET) 5-325 mg tablet Take 1 tablet by mouth every 6 hours as needed for pain for up to 30 days. Do not start before November 12, 2021. - zolpidem (AMBIEN) 10 mg Take 1 tablet by mouth at bedtime as needed (insomnia) for up to 180 days. - DULoxetine (CYMBALTA) 60 mg capsule Take 1 capsule by mouth twice daily. - topiramate (TOPAMAX) 100 mg tablet Take 2 tablets by mouth twice daily. - tiZANidine (ZANAFLEX) 4 mg tablet Take 2 tablets by mouth every 6 hours as needed (muscle spasms). - zolpidem (AMBIEN) 5 mg tablet Take 1 tablet by mouth at bedtime as needed for sedation for up to 30 days. - calcium carbonate 600 mg-cholecalciferol 200 units (CALCIUM 600 + D,3,) 600 mg(1,500mg) -200 unit tab Take 1 tablet by mouth twice daily. - cholecalciferol (VITAMIN D3) 5,000 unit tab Take 1 tablet by mouth once daily. - LEVOXYL 88 mcg tablet Take 1 tablet by mouth once daily. Take on empty stomach. - naloxone (NARCAN) 4 mg/actuation nasal spray 1 [place] by nasal (alternating) route as directed for 1 dose. 1 spray into 1 nostril. Additional doses may be given every 2-3 minutes until emergency arrives. - zolpidem (AMBIEN) 5 mg tablet Alternate 1 tab every other day with 2 tabs as needed for sleep (weaning to 5mg qHS) - traZODone (DESYREL) 50 mg tablet Take 1.5 tablets by mouth daily at bedtime. - fluticasone (FLONASE) 50 mcg/actuation nasal spray Use 2 Sprays in each nostril once daily. Rinse mouth after use. - meclizine (ANTIVERT) 25 mg tab Take 1 tablet by mouth every 6 hours as needed (dizziness). - albuterol HFA (PROVENTIL HFA, VENTOLIN HFA) 90 mcg/actuation inhaler Inhale 2 Puffs as instructed every 4 hours as needed for Wheezing/Shortness of Breath. - blood sugar diagnostic (ONETOUCH ULTRA TEST) test strip test once/day. DX 250.00 no insulin - Blood-Glucose Meter (ONETOUCH ULTRA SYSTEM KIT) monitoring kit test one time daily dx 250.00 no insulin Meds Comments as of 04/14/2013: Problem List As Of Date 11/23/2021 Noted Resolved IRRITABLE COLON [K58.9] Hypothyroidism [E03.9] Disorders of bursae and tendons in shoulder reg*12/02/2006 09/29/2015 Plantar fascial fibromatosis [M72.2] 10/13/2008 09/29/2015 Photosensitivity Disorder [L56.8] 10/10/2009 Iron deficiency anemia [D50.9] 01/10/2010 06/19/2018 Diabetes Mellitus [E11.9] 04/20/2010 10/14/2014 Hyperlipidemia with target LDL less than 100 [E*06/26/2010 Vitamin d deficiency [E55.9] 09/16/2012 Fibromyalgia [M79.7] 12/05/2012 Rheumatoid arthritis involving multiple sites (*02/11/2013 Abdominal pain, unspecified site [R10.9] 04/14/2013 09/29/2015 Pubic bone pain [M89.9] 04/14/2013 09/29/2015 Incisional hernia [K43.2] 04/06/2014 10/22/2020 Hypoglycemia after GI (gastrointestinal) surger*04/30/2014 09/29/2015 Chronic migraine without aura without status mi*09/29/2015 Mild intermittent asthma without complication [*09/29/2015 Insomnia secondary to anxiety [F41.9, F51.05] 09/29/2015 Morbid obesity due to excess calories (HCC) [E6*12/15/2015 History of gastric bypass [Z98.84] 02/09/2016 Diabete (more content not included)... [facility] CNPAnita 11-10-2021 CNPN Telephone (AGSPINE3) SIGIFREDOPAULINA ([id number]) 1965 F NFR Date Time Provider Department 11/10/21 FAYE BELTRAN AGSPINE3 During your visit today, we recorded the following information about you: Allergies As of Date: 11/10/2021 Noted Allergy Reaction BACTRIM (SULFAMETHOXAZOLE-TRIM ETH*05/04/2005 8 - GI Upset Comments: diarrhea BENZAMYCIN (ERYTHROMYCIN-BENZOYL *08/01/2005 5 - Intolerance Comments: Gastric upset ELAVIL (AMITRIPTYLINE) 12/18/2019 8 - GI Upset Comments: nausea environmental [Other] 08/19/2007 Comments: cats GUIAFEN-PSE (PSEUDOEPHEDRINE-GUAI* 04/14/2011 6 - Diarrhea HUMIRA (ADALIMUMAB) 04/07/2013 2 - Rash Comments: hair loss LODINE (ETODOLAC) 10/11/2005 8 - GI Upset METHOTREXATE 04/05/2014 14 - Other: See Comments Comments: SANDY NEURONTIN (GABAPENTIN) 08/01/2005 NSAIDS (NON-STEROIDAL ANTI-INFLAM*07/06/2019 14 - Other: See Comments Comments: high risk of peptic ulcer disease (s/p gastric bypass) ULTRAM (TRAMADOL HCL) 08/01/2005 6 - Diarrhea VICODIN (HYDROCODONE-ACETAMINO PHE*05/04/2005 1 - Mental Status Change VOLTAREN (DICLOFENAC SODIUM) 08/29/2005 Comments: sedation ZOSTRIX-HP (CAPSAICIN) 08/23/2005 Date Reviewed: 08/14/2021 Reviewed by: Carmen Power MA - Fully Assessed Reason for Visit: Patient Question [2837] Prescriptions as of 11/13/2021 - oxyCODONE-acetaminophe n (PERCOCET) 5-325 mg tablet Take 1 tablet by mouth every 6 hours as needed for pain for up to 30 days. Do not start before November 12, 2021. - zolpidem (AMBIEN) 10 mg Take 1 tablet by mouth at bedtime as needed (insomnia) for up to 180 days. - DULoxetine (CYMBALTA) 60 mg capsule Take 1 capsule by mouth twice daily. - topiramate (TOPAMAX) 100 mg tablet Take 2 tablets by mouth twice daily. - tiZANidine (ZANAFLEX) 4 mg tablet Take 2 tablets by mouth every 6 hours as needed (muscle spasms). - zolpidem (AMBIEN) 5 mg tablet Take 1 tablet by mouth at bedtime as needed for sedation for up to 30 days. - calcium carbonate 600 mg-cholecalciferol 200 units (CALCIUM 600 + D,3,) 600 mg(1,500mg) -200 unit tab Take 1 tablet by mouth twice daily. - cholecalciferol (VITAMIN D3) 5,000 unit tab Take 1 tablet by mouth once daily. - LEVOXYL 88 mcg tablet Take 1 tablet by mouth once daily. Take on empty stomach. - naloxone (NARCAN) 4 mg/actuation nasal spray 1 [place] by nasal (alternating) route as directed for 1 dose. 1 spray into 1 nostril. Additional doses may be given every 2-3 minutes until emergency arrives. - zolpidem (AMBIEN) 5 mg tablet Alternate 1 tab every other day with 2 tabs as needed for sleep (weaning to 5mg qHS) - traZODone (DESYREL) 50 mg tablet Take 1.5 tablets by mouth daily at bedtime. - fluticasone (FLONASE) 50 mcg/actuation nasal spray Use 2 Sprays in each nostril once daily. Rinse mouth after use. - meclizine (ANTIVERT) 25 mg tab Take 1 tablet by mouth every 6 hours as needed (dizziness). - albuterol HFA (PROVENTIL HFA, VENTOLIN HFA) 90 mcg/actuation inhaler Inhale 2 Puffs as instructed every 4 hours as needed for Wheezing/Shortness of Breath. - blood sugar diagnostic (ONETOUCH ULTRA TEST) test strip test once/day. DX 250.00 no insulin - Blood-Glucose Meter (ONETOUCH ULTRA SYSTEM KIT) monitoring kit test one time daily dx 250.00 no insulin Meds Comments as of 04/14/2013: Problem List As Of Date 11/10/2021 Noted Resolved IRRITABLE COLON [K58.9] Hypothyroidism [E03.9] Disorders of bursae and tendons in shoulder reg*12/02/2006 09/29/2015 Plantar fascial fibromatosis [M72.2] 10/13/2008 09/29/2015 Photosensitivity Disorder [L56.8] 10/10/2009 Iron deficiency anemia [D50.9] 01/10/2010 06/19/2018 Diabetes Mellitus [E11.9] 04/20/2010 10/14/2014 Hyperlipidemia with target LDL less than 100 [E*06/26/2010 Vitamin d deficiency [E55.9] 09/16/2012 Fibromyalgia [M79.7] 12/05/2012 Rheumatoid arthritis involving multiple sites (*02/11/2013 Abdominal pain, unspecified site [R10.9] 04/14/2013 09/29/2015 Pubic bone pain [M89.9] 04/14/2013 09/29/2015 Incisional hernia [K43.2] 04/06/2014 10/22/2020 Hypoglycemia after GI (gastrointestinal) surger*04/30/2014 09/29/2015 Chronic migraine without aura without status mi*09/29/2015 Mild intermittent asthma without complication [*09/29/2015 Insomnia secondary to anxiety [F41.9, F51.05] 09/29/2015 Morbid obesity due to excess calories (HCC) [E6*12/15/2015 History of gastric bypass [Z98.84] 02/09/2016 Diabetes mellitus (HCC) [E11.9] 04/20/2010 11/22/2016 Therapeutic opioid induced constipation [K59.03*09/25/2016 06/19/2018 Bleeding hemorrhoids [K64.9] 09/25/2016 06/19/2018 Right-sided chest wall pain [R07.89] 01/14/2017 06/19/2018 Gastroesophageal reflux disease [K21.9] 01/14/2017 Meralgia paresthetica, right lower limb [G57.11]07/15/2017 DDD (degenerative disc disease), lumbar [M51.36]08/13/2017 Anemia [D64.9] 08/14/2017 Co (more content not included)... [facility] CNPN Telephone (SPAGBA) PAULINA MEI ([id number]) 1965 F NFR Date Time Provider Department 11/10/21 FAYE BELTRAN During your visit today, we recorded the following information about you: Rober Rich MA 11/10/2021 1:27 PM Signed Patient called in requesting a bridge Rx of percocet 5-325 to last her until her appointment on 11/23. Patient states she will be taking the last of her medication today. Please advise. JONATHAN Edmond MD 11/10/2021 4:34 PM Signed Medication Refill Request: Medication(s) Requested: Percocet - Strength: 5/325 - Quantity: 120/mo Schedule: - Most recent office visit: 08/10/2021 (Virtual), last in person 06/2021 - Upcoming office visit: 11/23 Chart Review: - Last UDS: o 06/2021 (appropriate) - PMDP: o Reviewed and Appropriate o Last refill on 10/13/2021 Plan: Refill request approved. Medication has been sent to patient's preferred pharmacy. - Script number of days: 30 - Date of refill: 11/12/2021 (She is not due until 11/12) Note to staff: For her last refill, a nurse visit for random UDS was ordered, and it looks like she never obtained it. She will need to get a random UDS at her next appointment. Faye Beltran III, MD, ANDRÉS Faye Beltran MD 11/10/2021 4:34 PM Signed Addended by: FAYE BELTRAN on: 11/10/2021 04:34 PM Modules accepted: Orders Dominique James MA 11/13/2021 9:43 AM Signed Informed patient of below message. Dominique James MA Allergies As of Date: 11/10/2021 Noted Allergy Reaction BACTRIM (SULFAMETHOXAZOLE-TRIM ETH*05/04/2005 8 - GI Upset Comments: diarrhea BENZAMYCIN (ERYTHROMYCIN-BENZOYL *08/01/2005 5 - Intolerance Comments: Gastric upset ELAVIL (AMITRIPTYLINE) 12/18/2019 8 - GI Upset Comments: nausea environmental [Other] 08/19/2007 Comments: cats GUIAFEN-PSE (PSEUDOEPHEDRINE-GUAI* 04/14/2011 6 - Diarrhea HUMIRA (ADALIMUMAB) 04/07/2013 2 - Rash Comments: hair loss LODINE (ETODOLAC) 10/11/2005 8 - GI Upset METHOTREXATE 04/05/2014 14 - Other: See Comments Comments: SANDY NEURONTIN (GABAPENTIN) 08/01/2005 NSAIDS (NON-STEROIDAL ANTI-INFLAM*07/06/2019 14 - Other: See Comments Comments: high risk of peptic ulcer disease (s/p gastric bypass) ULTRAM (TRAMADOL HCL) 08/01/2005 6 - Diarrhea VICODIN (HYDROCODONE-ACETAMINO PHE*05/04/2005 1 - Mental Status Change VOLTAREN (DICLOFENAC SODIUM) 08/29/2005 Comments: sedation ZOSTRIX-HP (CAPSAICIN) 08/23/2005 Date Reviewed: 08/14/2021 Reviewed by: Carmen Power MA - Fully Assessed Reason for Visit: Medication Problem [65] 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 Do not start before November 12, 2021.Disp: 120 tabletRfl: 0 Prescriptions as of 11/13/2021 - oxyCODONE-acetaminophe n (PERCOCET) 5-325 mg tablet Take 1 tablet by mouth every 6 hours as needed for pain for up to 30 days. Do not start before November 12, 2021. - zolpidem (AMBIEN) 10 mg Take 1 tablet by mouth at bedtime as needed (insomnia) for up to 180 days. - DULoxetine (CYMBALTA) 60 mg capsule Take 1 capsule by mouth twice daily. - topiramate (TOPAMAX) 100 mg tablet Take 2 tablets by mouth twice daily. - tiZANidine (ZANAFLEX) 4 mg tablet Take 2 tablets by mouth every 6 hours as needed (muscle spasms). - zolpidem (AMBIEN) 5 mg tablet Take 1 tablet by mouth at bedtime as needed for sedation for up to 30 days. - calcium carbonate 600 mg-cholecalciferol 200 units (CALCIUM 600 + D,3,) 600 mg(1,500mg) -200 unit tab Take 1 tablet by mouth twice daily. - cholecalciferol (VITAMIN D3) 5,000 unit tab Take 1 tablet by mouth once daily. - LEVOXYL 88 mcg tablet Take 1 tablet by mouth once daily. Take on empty stomach. - naloxone (NARCAN) 4 mg/actuation nasal spray 1 [place] by nasal (alternating) route as directed for 1 dose. 1 spray into 1 nostril. Additional doses may be given every 2-3 minutes until emergency arrives. - zolpidem (AMBIEN) 5 mg tablet Alternate 1 tab every other day with 2 tabs as needed for sleep (weaning to 5mg qHS) - traZODone (DESYREL) 50 mg tablet Take 1.5 tablets by mouth daily at bedtime. - fluticasone (FLONASE) 50 mcg/actuation nasal spray Use 2 Sprays in each nostril once daily. Rinse mouth after use. - meclizine (ANTIVERT) 25 mg tab Take 1 tablet by mouth every 6 hours as needed (dizziness). - albuterol HFA (PROVENTIL HFA, VENTOLIN HFA) 90 mcg/actuation inhaler Inhale 2 Puffs as instructed every 4 hours as needed for Wheezing/Shortness of Breath. - blood sugar diagnostic (ONETOUCH ULTRA TEST) test strip test onc (more content not included)... [facility] [place] 10-13-2021 EMILY Telephone (AGSPINE3) PAULINA MEI ([id number]) 1965 F NFR Date Time Provider Department 10/13/21 FAYE BELTRAN AGSPINE3 During your visit today, we recorded the following information about you: Ric Mcmahon LPN 10/13/2021 3:19 PM Signed Pt called in left message requesting Percocet 5-325 refill, pt said she was suppose to have another refill, still in lots of pain. Please advise. Ric Mcmahon LPN Allergies As of Date: 10/13/2021 Noted Allergy Reaction BACTRIM (SULFAMETHOXAZOLE-TRIM ETH*05/04/2005 8 - GI Upset Comments: diarrhea BENZAMYCIN (ERYTHROMYCIN-BENZOYL *08/01/2005 5 - Intolerance Comments: Gastric upset ELAVIL (AMITRIPTYLINE) 12/18/2019 8 - GI Upset Comments: nausea environmental [Other] 08/19/2007 Comments: cats GUIAFEN-PSE (PSEUDOEPHEDRINE-GUAI* 04/14/2011 6 - Diarrhea HUMIRA (ADALIMUMAB) 04/07/2013 2 - Rash Comments: hair loss LODINE (ETODOLAC) 10/11/2005 8 - GI Upset METHOTREXATE 04/05/2014 14 - Other: See Comments Comments: SANDY NEURONTIN (GABAPENTIN) 08/01/2005 NSAIDS (NON-STEROIDAL ANTI-INFLAM*07/06/2019 14 - Other: See Comments Comments: high risk of peptic ulcer disease (s/p gastric bypass) ULTRAM (TRAMADOL HCL) 08/01/2005 6 - Diarrhea VICODIN (HYDROCODONE-ACETAMINO PHE*05/04/2005 1 - Mental Status Change VOLTAREN (DICLOFENAC SODIUM) 08/29/2005 Comments: sedation ZOSTRIX-HP (CAPSAICIN) 08/23/2005 Date Reviewed: 08/14/2021 Reviewed by: Carmen Power MA - Fully Assessed Reason for Visit: Refill Request [94] Cmt: Percocet 5-325 refill request Prescriptions as of 10/13/2021 - DULoxetine (CYMBALTA) 60 mg capsule Take 1 capsule by mouth twice daily. - topiramate (TOPAMAX) 100 mg tablet Take 2 tablets by mouth twice daily. - tiZANidine (ZANAFLEX) 4 mg tablet Take 2 tablets by mouth every 6 hours as needed (muscle spasms). - zolpidem (AMBIEN) 5 mg tablet Take 1 tablet by mouth at bedtime as needed for sedation for up to 30 days. - calcium carbonate 600 mg-cholecalciferol 200 units (CALCIUM 600 + D,3,) 600 mg(1,500mg) -200 unit tab Take 1 tablet by mouth twice daily. - cholecalciferol (VITAMIN D3) 5,000 unit tab Take 1 tablet by mouth once daily. - LEVOXYL 88 mcg tablet Take 1 tablet by mouth once daily. Take on empty stomach. - naloxone (NARCAN) 4 mg/actuation nasal spray 1 [place] by nasal (alternating) route as directed for 1 dose. 1 spray into 1 nostril. Additional doses may be given every 2-3 minutes until emergency arrives. - zolpidem (AMBIEN) 5 mg tablet Alternate 1 tab every other day with 2 tabs as needed for sleep (weaning to 5mg qHS) - traZODone (DESYREL) 50 mg tablet Take 1.5 tablets by mouth daily at bedtime. - fluticasone (FLONASE) 50 mcg/actuation nasal spray Use 2 Sprays in each nostril once daily. Rinse mouth after use. - meclizine (ANTIVERT) 25 mg tab Take 1 tablet by mouth every 6 hours as needed (dizziness). - albuterol HFA (PROVENTIL HFA, VENTOLIN HFA) 90 mcg/actuation inhaler Inhale 2 Puffs as instructed every 4 hours as needed for Wheezing/Shortness of Breath. - blood sugar diagnostic (ONETOUCH ULTRA TEST) test strip test once/day. DX 250.00 no insulin - Blood-Glucose Meter (ONETOUCH ULTRA SYSTEM KIT) monitoring kit test one time daily dx 250.00 no insulin Meds Comments as of 04/14/2013: Problem List As Of Date 10/13/2021 Noted Resolved IRRITABLE COLON [K58.9] Hypothyroidism [E03.9] Disorders of bursae and tendons in shoulder reg*12/02/2006 09/29/2015 Plantar fascial fibromatosis [M72.2] 10/13/2008 09/29/2015 Photosensitivity Disorder [L56.8] 10/10/2009 Iron deficiency anemia [D50.9] 01/10/2010 06/19/2018 Diabetes Mellitus [E11.9] 04/20/2010 10/14/2014 Hyperlipidemia with target LDL less than 100 [E*06/26/2010 Vitamin d deficiency [E55.9] 09/16/2012 Fibromyalgia [M79.7] 12/05/2012 Rheumatoid arthritis involving multiple sites (*02/11/2013 Abdominal pain, unspecified site [R10.9] 04/14/2013 09/29/2015 Pubic bone pain [M89.9] 04/14/2013 09/29/2015 Incisional hernia [K43.2] 04/06/2014 10/22/2020 Hypoglycemia after GI (gastrointestinal) surger*04/30/2014 09/29/2015 Chronic migraine without aura without status mi*09/29/2015 Mild intermittent asthma without complication [*09/29/2015 Insomnia secondary to anxiety [F41.9, F51.05] 09/29/2015 Morbid obesity due to excess calories (HCC) [E6*12/15/2015 History of gastric bypass [Z98.84] 02/09/2016 Diabetes mellitus (HCC) [E11.9] 04/20/2010 11/22/2016 Therapeutic opioid induced constipation [K59.03*09/25/2016 06/19/2018 Bleeding hemorrhoids [K64.9] 09/25/2016 06/19/2018 Right-sided chest wall pain [R07.89] 01/14/2017 06/19/2018 Gastroesophageal reflux disease [K21.9] 01/14/2017 Meralgia paresthetica, right lower limb [G57.11]07/15/2017 DDD (degenerative disc disease), lumbar [M51.36]08/13/2017 Anemia [D64.9] 08/14/2017 Constipation, unspecified [K59.0 (more content not included)... [facility] CNPAnita 10-10-2021 CNPN Telephone (AGSPINE1) PAULINA MEI ([id number]) 1965 F NFR Date Time Provider Department 10/10/21 FAYE BELTRAN AGSPINE1 During your visit today, we recorded the following information about you: Ric Mcmahon LPN 10/10/2021 4:56 PM Addendum Pt called left message, said that she is unable to refill Duloxetine, would like new prescriptions sent to pharmacy. Called pharmacy and asked about this problem, they said medication prescription has not been received would like another prescription sent for Duloxetine. Please advise. Ric Beltran MD 10/11/2021 11:31 AM Signed Cymbalta resent to pharmacy ([facility] [address] in [place]). Faye Beltran III, MD, ANDRÉS Faye Beltarn MD 10/11/2021 11:31 AM Signed Addended by: FAYE BELTRAN on: 10/11/2021 11:31 AM Modules accepted: Orders Rober Rich MA 10/11/2021 1:46 PM Signed Left a message notifying patient. Rober Rich MA Allergies As of Date: 10/10/2021 Noted Allergy Reaction BACTRIM (SULFAMETHOXAZOLE-TRIM ETH*05/04/2005 8 - GI Upset Comments: diarrhea BENZAMYCIN (ERYTHROMYCIN-BENZOYL *08/01/2005 5 - Intolerance Comments: Gastric upset ELAVIL (AMITRIPTYLINE) 12/18/2019 8 - GI Upset Comments: nausea environmental [Other] 08/19/2007 Comments: cats GUIAFEN-PSE (PSEUDOEPHEDRINE-GUAI* 04/14/2011 6 - Diarrhea HUMIRA (ADALIMUMAB) 04/07/2013 2 - Rash Comments: hair loss LODINE (ETODOLAC) 10/11/2005 8 - GI Upset METHOTREXATE 04/05/2014 14 - Other: See Comments Comments: SANDY NEURONTIN (GABAPENTIN) 08/01/2005 NSAIDS (NON-STEROIDAL ANTI-INFLAM*07/06/2019 14 - Other: See Comments Comments: high risk of peptic ulcer disease (s/p gastric bypass) ULTRAM (TRAMADOL HCL) 08/01/2005 6 - Diarrhea VICODIN (HYDROCODONE-ACETAMINO PHE*05/04/2005 1 - Mental Status Change VOLTAREN (DICLOFENAC SODIUM) 08/29/2005 Comments: sedation ZOSTRIX-HP (CAPSAICIN) 08/23/2005 Date Reviewed: 08/14/2021 Reviewed by: Carmen Power MA - Fully Assessed Reason for Visit: Refill Request [94] Cmt: Duloxetine Visit Diagnoses:Depression, unspecified depression type [F32.A] 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 - topiramate (TOPAMAX) 100 mg tablet Take 2 tablets by mouth twice daily. - tiZANidine (ZANAFLEX) 4 mg tablet Take 2 tablets by mouth every 6 hours as needed (muscle spasms). - zolpidem (AMBIEN) 5 mg tablet Take 1 tablet by mouth at bedtime as needed for sedation for up to 30 days. - calcium carbonate 600 mg-cholecalciferol 200 units (CALCIUM 600 + D,3,) 600 mg(1,500mg) -200 unit tab Take 1 tablet by mouth twice daily. - cholecalciferol (VITAMIN D3) 5,000 unit tab Take 1 tablet by mouth once daily. - LEVOXYL 88 mcg tablet Take 1 tablet by mouth once daily. Take on empty stomach. - naloxone (NARCAN) 4 mg/actuation nasal spray 1 [place] by nasal (alternating) route as directed for 1 dose. 1 spray into 1 nostril. Additional doses may be given every 2-3 minutes until emergency arrives. - zolpidem (AMBIEN) 5 mg tablet Alternate 1 tab every other day with 2 tabs as needed for sleep (weaning to 5mg qHS) - traZODone (DESYREL) 50 mg tablet Take 1.5 tablets by mouth daily at bedtime. - fluticasone (FLONASE) 50 mcg/actuation nasal spray Use 2 Sprays in each nostril once daily. Rinse mouth after use. - meclizine (ANTIVERT) 25 mg tab Take 1 tablet by mouth every 6 hours as needed (dizziness). - albuterol HFA (PROVENTIL HFA, VENTOLIN HFA) 90 mcg/actuation inhaler Inhale 2 Puffs as instructed every 4 hours as needed for Wheezing/Shortness of Breath. - blood sugar diagnostic (ONETOUCH ULTRA TEST) test strip test once/day. DX 250.00 no insulin - Blood-Glucose Meter (ONETOUCH ULTRA SYSTEM KIT) monitoring kit test one time daily dx 250.00 no insulin Meds Comments as of 04/14/2013: Problem List As Of Date 10/10/2021 Noted Resolved IRRITABLE COLON [K58.9] Hypothyroidism [E03.9] Disorders of bursae and tendons in shoulder reg*12/02/2006 09/29/2015 Plantar fascial fibromatosis [M72.2] 10/13/2008 09/29/2015 Photosensitivity Disorder [L56.8] 10/10/2009 Iron deficiency anemia [D50.9] 01/10/2010 06/19/2018 Diabetes Mellitus [E11.9] 04/20/2010 10/14/2014 Hyperlipidemia with target LDL less than 100 [E*06/26/2010 Vitamin d deficiency [E55.9] 09/16/2012 Fibromyalgia [M79.7] 12/05/2012 Rheumatoid arthritis involving multiple sites (*02/11/2013 Abdominal pain, unspecified site [R10.9] 04/14/2013 09/29/2015 Pubic bone pain (more content not included)... [facility] 08-11-2021 PRESLEYN Telephone (AGSPINE3) PAULINA MEI ([id number]) 1965 F NFR Date Time Provider Department 08/11/21 FAYE BELTRAN AGSPINE3 During your visit today, we recorded the following information about you: Radha Mercado 08/11/2021 9:31 AM Signed LVM for patient to schedule [address] Beltran in [place]. Patient had a virtual visit with Dr. Beltran on 08/10 Radha Mercado Allergies As of Date: 08/11/2021 Noted Allergy Reaction BACTRIM (SULFAMETHOXAZOLE-TRIM ETH*05/04/2005 8 - GI Upset Comments: diarrhea BENZAMYCIN (ERYTHROMYCIN-BENZOYL *08/01/2005 5 - Intolerance Comments: Gastric upset ELAVIL (AMITRIPTYLINE) 12/18/2019 8 - GI Upset Comments: nausea environmental [Other] 08/19/2007 Comments: cats GUIAFEN-PSE (PSEUDOEPHEDRINE-GUAI* 04/14/2011 6 - Diarrhea HUMIRA (ADALIMUMAB) 04/07/2013 2 - Rash Comments: hair loss LODINE (ETODOLAC) 10/11/2005 8 - GI Upset METHOTREXATE 04/05/2014 14 - Other: See Comments Comments: SANDY NEURONTIN (GABAPENTIN) 08/01/2005 NSAIDS (NON-STEROIDAL ANTI-INFLAM*07/06/2019 14 - Other: See Comments Comments: high risk of peptic ulcer disease (s/p gastric bypass) ULTRAM (TRAMADOL HCL) 08/01/2005 6 - Diarrhea VICODIN (HYDROCODONE-ACETAMINO PHE*05/04/2005 1 - Mental Status Change VOLTAREN (DICLOFENAC SODIUM) 08/29/2005 Comments: sedation ZOSTRIX-HP (CAPSAICIN) 08/23/2005 Date Reviewed: 08/10/2021 Reviewed by: Faye Beltran MD - Fully Assessed Reason for Visit: Future Appointment [256] Prescriptions as of 08/11/2021 - DULoxetine (CYMBALTA) 60 mg capsule Take 1 capsule by mouth twice daily. - oxyCODONE-acetaminophe n (PERCOCET) 5-325 mg tablet Take 1 tablet by mouth every 6 hours as needed for pain for up to 30 days. - oxyCODONE-acetaminophe n (PERCOCET) 5-325 mg tablet TAKE 1 PILL UP TO EVERY 6 HOURS NEEDED FOR SEVERE BREAKTHROUGH PAIN. DO NOT EXCEED 4 PILLS IN A 24 HOUR PERIOD. - LEVOXYL 88 mcg tablet Take 1 tablet by mouth once daily. Take on empty stomach. - naloxone (NARCAN) 4 mg/actuation nasal spray 1 [place] by nasal (alternating) route as directed for 1 dose. 1 spray into 1 nostril. Additional doses may be given every 2-3 minutes until emergency arrives. - zolpidem (AMBIEN) 5 mg tablet Alternate 1 tab every other day with 2 tabs as needed for sleep (weaning to 5mg qHS) - traZODone (DESYREL) 50 mg tablet Take 1.5 tablets by mouth daily at bedtime. - topiramate (TOPAMAX) 100 mg tablet Take 2 tablets by mouth twice daily. - tiZANidine (ZANAFLEX) 4 mg tablet Take 2 tablets by mouth every 6 hours as needed (muscle spasms). - albuterol HFA (PROAIR HFA) 90 mcg/actuation inhaler Inhale 2 Puffs as instructed every 4 hours as needed for wheezing/shortness of breath. - zolpidem (AMBIEN) 10 mg Please attempt to wean dose progressively to 1/2 tab as needed for sleep - hydrOXYzine HCl (ATARAX) 25 mg tablet Take 1 tablet by mouth every 8 hours as needed for Anxiety. - fluticasone (FLONASE) 50 mcg/actuation nasal spray Use 2 Sprays in each nostril once daily. Rinse mouth after use. - meclizine (ANTIVERT) 25 mg tab Take 1 tablet by mouth every 6 hours as needed (dizziness). - dicyclomine (BENTYL) 10 mg capsule Take 1 capsule by mouth before meals and at bedtime. as needed for abdominal cramping - busPIRone (BUSPAR) 15 mg tablet Take 1 tablet by mouth three times daily. - albuterol HFA (PROVENTIL HFA, VENTOLIN HFA) 90 mcg/actuation inhaler Inhale 2 Puffs as instructed every 4 hours as needed for Wheezing/Shortness of Breath. - folic acid 1 mg tablet Take 1 tablet by mouth once daily. - Zinc 50 mg tab Take 1 tablet by mouth once each week. - blood sugar diagnostic (ONETOUCH ULTRA TEST) test strip test once/day. DX 250.00 no insulin - Blood-Glucose Meter (ONETOUCH ULTRA SYSTEM KIT) monitoring kit test one time daily dx 250.00 no insulin Meds Comments as of 04/14/2013: Problem List As Of Date 08/11/2021 Noted Resolved IRRITABLE COLON [K58.9] Hypothyroidism [E03.9] Disorders of bursae and tendons in shoulder reg*12/02/2006 09/29/2015 Plantar fascial fibromatosis [M72.2] 10/13/2008 09/29/2015 Photosensitivity Disorder [L56.8] 10/10/2009 Iron deficiency anemia [D50.9] 01/10/2010 06/19/2018 Diabetes Mellitus [E11.9] 04/20/2010 10/14/2014 Hyperlipidemia with target LDL less than 100 [E*06/26/2010 Vitamin d deficiency [E55.9] 09/16/2012 Fibromyalgia [M79.7] 12/05/2012 Rheumatoid arthritis involving multiple sites (*02/11/2013 Abdominal pain, unspecified site [R10.9] 04/14/2013 09/29/2015 Pubic bone pain [M89.9] 04/14/2013 09/29/2015 Incisional hernia [K43.2] 04/06/2014 10/22/2020 Hypoglycemia after GI (gastrointestinal) surger*04/30/2014 09/29/2015 Chronic migraine without aura without status mi*09/29/2015 Mild intermittent asthma without complication [*09/29/2015 Insomnia secondary to anxiety [F41.9, F51.05] 09/29/2015 Mor (more content not included)... [facility] CNPNon 08-02-2021 CNPN Telephone (AGSPINE3) PAULINA MEI ([id number]) 1965 F NFR Date Time Provider Department 08/02/21 FAYE BELTRAN [facility] During your visit today, we recorded the following information about you: Ric Mcmahon LPN 08/02/2021 4:54 PM Signed Pt called in and left message for us to call them back, no specification as to what the call is about. Called pt back, left message on voice mail for callback. Ric Reid, Tech 08/07/2021 9:33 AM Signed Patient called in stating she just missed our call. 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 She thought this was discussed at her last visit but might be confused. Salbador Barrios Tech 08/07/2021 9:49 AM Signed Patient called in requesting [facility]. Patient states she takes 4 times daily, and that the script she has will not last her until her appointment on the . Would like another script to last her until her appointment. Salbador Barrios APRN.PRELSEY 08/07/2021 6:43 PM Signed As I explained on the phone with this patient today on my day off, that I filled her on 08/04/21 giving her 6 days worth of percocet to get her thru until 08/10/[address] Beltran. I filled her 24 pills and as I explained to her three times that 6 days x 4 pills daily is 24 total pills to get her thru until 08/10/21. I am not sending her more pills in at this time. If she would like more medication send this message to Dr Beltran who she is seeing on 08/10/21. And if she is out of pills already she is taking more that the prescribed 4x daily and will need addressed as well at this OV. Thanks Jere Puentes APRN.SUPERVISOR INSTRUMENT MAINTENANCE Allergies As of Date: 08/02/2021 Noted Allergy Reaction BACTRIM (SULFAMETHOXAZOLE-TRIM ETH*05/04/2005 8 - GI Upset Comments: diarrhea BENZAMYCIN (ERYTHROMYCIN-BENZOYL *08/01/2005 5 - Intolerance Comments: Gastric upset ELAVIL (AMITRIPTYLINE) 12/18/2019 8 - GI Upset Comments: nausea environmental [Other] 08/19/2007 Comments: cats GUIAFEN-PSE (PSEUDOEPHEDRINE-GUAI* 04/14/2011 6 - Diarrhea HUMIRA (ADALIMUMAB) 04/07/2013 2 - Rash Comments: hair loss LODINE (ETODOLAC) 10/11/2005 8 - GI Upset METHOTREXATE 04/05/2014 14 - Other: See Comments Comments: SANDY NEURONTIN (GABAPENTIN) 08/01/2005 NSAIDS (NON-STEROIDAL ANTI-INFLAM*07/06/2019 14 - Other: See Comments Comments: high risk of peptic ulcer disease (s/p gastric bypass) ULTRAM (TRAMADOL HCL) 08/01/2005 6 - Diarrhea VICODIN (HYDROCODONE-ACETAMINO PHE*05/04/2005 1 - Mental Status Change VOLTAREN (DICLOFENAC SODIUM) 08/29/2005 Comments: sedation ZOSTRIX-HP (CAPSAICIN) 08/23/2005 Date Reviewed: 06/22/2021 Reviewed by: Jere Puentes APRN.SUPERVISOR INSTRUMENT MAINTENANCE - Fully Assessed Reason for Visit: Returning Patient's Call [408] Medication Problem [65] Prescriptions as of 08/07/2021 - oxyCODONE-acetaminophe n (PERCOCET) 5-325 mg tablet Take 1 tablet by mouth every 6 hours as needed for pain for up to 6 days. - LEVOXYL 88 mcg tablet Take 1 tablet by mouth once daily. Take on empty stomach. - naloxone (NARCAN) 4 mg/actuation nasal spray 1 [place] by nasal (alternating) route as directed for 1 dose. 1 spray into 1 nostril. Additional doses may be given every 2-3 minutes until emergency arrives. - zolpidem (AMBIEN) 5 mg tablet Alternate 1 tab every other day with 2 tabs as needed for sleep (weaning to 5mg qHS) - traZODone (DESYREL) 50 mg tablet Take 1.5 tablets by mouth daily at bedtime. - topiramate (TOPAMAX) 100 mg tablet Take 2 tablets by mouth twice daily. - tiZANidine (ZANAFLEX) 4 mg tablet Take 2 tablets by mouth every 6 hours as needed (muscle spasms). - predniSONE (DELTASONE) 10 mg tablet 6 pills, 6, 5, 5, 4, 4, 3, 3, 2, 2, 1, 1. - DULoxetine (CYMBALTA) 60 mg capsule Take 1 capsule by mouth once daily. - albuterol HFA (PROAIR HFA) 90 mcg/actuation inhaler Inhale 2 Puffs as instructed every 4 hours as needed for wheezing/shortness of breath. - zolpidem (AMBIEN) 10 mg Please attempt to wean dose progressively to 1/2 tab as needed for sleep - hydrOXYzine HCl (ATARAX) 25 mg tablet Take 1 tablet by mouth every 8 hours as needed for Anxiety. - fluticasone (FLONASE) 50 mcg/actuation nasal spray Use 2 Sprays in each nostril once daily. Rinse mouth after use. - meclizine (ANTIVERT) 25 mg tab Take 1 tablet by mouth every 6 hours as needed (dizziness). - dicyclomine (BENTYL) 10 mg capsule Take 1 capsule by mouth before meals and at bedtime. as needed for abdominal cramping - busPIRone (BUSPAR) 15 mg tablet Take 1 tablet by mouth three times daily. - albuterol HFA (PROVENTIL HFA, VENTOLIN HFA) 90 mcg/actuation inhaler Inhale 2 Puffs as instructed every 4 hours as needed for Wheezing/Shortness of Breath. - folic acid 1 mg t (more content not included)... [facility] CNOVon 06-22-2021 JOHNNIE Office Visit (SPAGWO ) PAULINA MEI ([id number]) 1965 F NFR Date Time Provider Department 06/22/21 3:00 PM JERE PUENTES During your visit today, we recorded the following information about you: Pulse Respiration [facility] CNCOon 04-06-2021 CNCO Letter Text [facility] CNPNon 03-30-2021 CNPN Telephone (LAURAGWO) PAULINA MEI ([id number]) 1965 F NFR Date Time Provider Department 03/30/21 FAYE BELTRAN III SPAGWO During your visit today, we recorded the following information about you: Terra Gorman 03/30/2021 1:20 PM Signed The background check and OARRS report have been scanned into the chart. The patient would be coming in for rheumatoid arthritis. This is a [facility] referral. The referring physician is SAVANNAH Brady. The patient has Medicare insurance. Please review. OARRS:OVERDOSE RISK SCORE:280, NARCOTIC:471, SEDATIVE:401 Have you had Pain Management in the past 3 years? No If yes, where? Are you currently taking pain medication? Yes If so, please list: Percocet Terra Beltran MD 03/30/2021 2:12 PM Signed PDMP and chart reviewed. OK to schedule. 90 Percocet 5/325 per month. Also on Ambien. Numerous med allergies. One tox screen 06/20/2018 - Oxycodone positive (appropriate). MD Terra Soriano 03/31/2021 9:51 AM Signed Left message with patient to call back to schedule a new patient appointment in [place] with . Terra Gorman Allergies As of Date: 03/30/2021 Noted Allergy Reaction BACTRIM (SULFAMETHOXAZOLE-TRIM ETH*05/04/2005 8 - GI Upset Comments: diarrhea BENZAMYCIN (ERYTHROMYCIN-BENZOYL *08/01/2005 5 - Intolerance Comments: Gastric upset ELAVIL (AMITRIPTYLINE) 12/18/2019 8 - GI Upset Comments: nausea environmental [Other] 08/19/2007 Comments: cats GUIAFEN-PSE (PSEUDOEPHEDRINE-GUAI* 04/14/2011 6 - Diarrhea HUMIRA (ADALIMUMAB) 04/07/2013 2 - Rash Comments: hair loss LODINE (ETODOLAC) 10/11/2005 8 - GI Upset METHOTREXATE 04/05/2014 14 - Other: See Comments Comments: SANDY NEURONTIN (GABAPENTIN) 08/01/2005 NSAIDS (NON-STEROIDAL ANTI-INFLAM*07/06/2019 14 - Other: See Comments Comments: high risk of peptic ulcer disease (s/p gastric bypass) ULTRAM (TRAMADOL HCL) 08/01/2005 6 - Diarrhea VICODIN (HYDROCODONE-ACETAMINO PHE*05/04/2005 1 - Mental Status Change VOLTAREN (DICLOFENAC SODIUM) 08/29/2005 Comments: sedation ZOSTRIX-HP (CAPSAICIN) 08/23/2005 Date Reviewed: 03/30/2021 Reviewed by: Gurdeep Boothe MD - Fully Assessed Reason for Visit: New Patient [172] Prescriptions as of 03/31/2021 - oxyCODONE-acetaminophe n (PERCOCET) 5-325 mg tablet Take 1 tablet by mouth every 8 hours as needed for pain for up to 30 days. - zolpidem (AMBIEN) 10 mg Take 1 tablet by mouth at bedtime as needed (insomnia) for up to 30 days. Try to wean dose from whole to 1/2 tab qHS gradually - tiZANidine (ZANAFLEX) 4 mg tablet Take 2 tablets by mouth every 6 hours as needed (muscle spasms). - zolpidem (AMBIEN) 10 mg Take 1 tablet by mouth at bedtime as needed (insomnia) for up to 30 days. - traZODone (DESYREL) 50 mg tablet Take 1 tablet by mouth daily at bedtime. - hydrOXYzine HCl (ATARAX) 25 mg tablet Take 1 tablet by mouth every 8 hours as needed for Anxiety. - levothyroxine (SYNTHROID) 88 mcg tablet Take 1 tablet by mouth once daily. Take on empty stomach. - promethazine (PHENERGAN) 25 mg tablet Go-Pack Take 1 tablet by mouth every 6 hours as needed for Nausea/Vomiting. - topiramate (TOPAMAX) 100 mg tablet Take 2 tablets by mouth twice daily. - DULoxetine (CYMBALTA) 60 mg capsule Take 1 capsule by mouth once daily. - fluticasone (FLONASE) 50 mcg/actuation nasal spray Use 2 Sprays in each nostril once daily. Rinse mouth after use. - meclizine (ANTIVERT) 25 mg tab Take 1 tablet by mouth every 6 hours as needed (dizziness). - dicyclomine (BENTYL) 10 mg capsule Take 1 capsule by mouth before meals and at bedtime. as needed for abdominal cramping - busPIRone (BUSPAR) 15 mg tablet Take 1 tablet by mouth three times daily. - cholecalciferol, vitamin D3, (VITAMIN D3) 4,000 unit cap Take 1 capsule by mouth once daily. - mometasone (ELOCON) 0.1 % cream Apply 1 application to affected area once daily. - albuterol HFA (PROVENTIL HFA, VENTOLIN HFA) 90 mcg/actuation inhaler Inhale 2 Puffs as instructed every 4 hours as needed for Wheezing/Shortness of Breath. - folic acid 1 mg tablet Take 1 tablet by mouth once daily. - Zinc 50 mg tab Take 1 tablet by mouth once each week. - blood sugar diagnostic (ONETOUCH ULTRA TEST) test strip test once/day. DX 250.00 no insulin - Blood-Glucose Meter (ONETOUCH ULTRA SYSTEM KIT) monitoring kit test one time daily dx 250.00 no insulin Meds Comments as of 04/14/2013: Problem List As Of Date 03/30/2021 Noted Resolved IRRITABLE COLON [K58.9] Hypothyroidism [E03.9] Disorders of bursae and tendons in shoulder reg*12/02/2006 09/29/2015 Plantar fascial fibromatosis [M72.2] 10/13/2008 09/29/2015 Photosensitivity Disorder [L56.8] 10/10/2009 Iron deficiency anemia [D50.9] 01/10/2010 06/19/2018 Diabetes Mellitus [E11.9] 04/20/2010 10/14/2014 Hyperlipidemia with target LDL less than (more content not included)... [facility] XR Shoulder - right 3 Viewso n 03-27-2021 IMPRESSION: Findings are suggestive of degenerative changes of the right shoulder. Health Careers Instructor: HERMES Transcribe Date/Time: Mar 27 2021 6:37P Dictated by : WEI SCHOFIELD MD This examination was interpreted and the report reviewed and electronically signed by: WEI SCHOFIELD MD on Mar 27 2021 6:39PM [facility] DIVISION OF RADIOLOGY * * *Final Report* * * DATE OF EXAM: Mar 27 2021 6:33PM [id number] - XR SHLDR >/=3V AP/DARREL AP/OTHR RT / PROCEDURE REASON: Acute pain of right shoulder * * * * Physician Interpretation * * * * EXAM TITLE: XR SHLDR >/=3V AP/DARREL AP/OTHR RT EXAM DATE/TIME: 03/27/2021 6:33 PM COMPARISON: None. CLINICAL INDICATION/HISTORY: Acute shoulder pain. No injury. TECHNIQUE: AP, true AP and Y views of the right shoulder are presented FINDINGS: No acute fractures or subluxations are noted. There is acromioclavicular joint space narrowing, with associated osteophyte formation and subchondral bony sclerosis. The glenohumeral joint appears unremarkable. The acromiohumeral interval is maintained. There are hypertrophic changes in the greater tubercle of the humerus. The bones are osteopenic. There is no significant soft tissue swelling or calcification. DIVISION OF RADIOLOGY Provider, [facility] - 03/27/2021 * * *Final Report* * * DATE OF EXAM: Mar 27 2021 6:33PM [id number] - XR SHLDR >/=3V AP/DARREL AP/OTHR RT / PROCEDURE REASON: Acute pain of right shoulder * * * * Physician Interpretation * * * * EXAM TITLE: XR SHLDR >/=3V AP/DARREL AP/OTHR RT EXAM DATE/TIME: 03/27/2021 6:33 PM COMPARISON: None. CLINICAL INDICATION/HISTORY: Acute shoulder pain. No injury. TECHNIQUE: AP, true AP and Y views of the right shoulder are presented FINDINGS: No acute fractures or subluxations are noted. There is acromioclavicular joint space narrowing, with associated osteophyte formation and subchondral bony sclerosis. The glenohumeral joint appears unremarkable. The acromiohumeral interval is maintained. There are hypertrophic changes in the greater tubercle of the humerus. The bones are osteopenic. There is no significant soft tissue swelling or calcification. IMPRESSION IMPRESSION: Findings are suggestive of degenerative changes of the right shoulder. Health Careers Instructor: PSCB Transcribe Date/Time: Mar 27 2021 6:37P Dictated by : WEI SCHOFIELD MD This examination was interpreted and the report reviewed and electronically signed by: WEI SCHOFIELD MD on Mar 27 2021 6:39PM EST [facility] Radiology Study observation (narrative) [facility] XR Shoulder - right 3 ViewsO rdered By: [facility] Provider on 03-27-2021 [facility] COVID-19 virus antigen assay SARS-CoV-2 (COVID-19) Ag IA.rapid Ql (Resp) [facility] Work Phone: Vital Signs Date Time Vital Sign Value Performing Clinician Facility 11-24-2023 10:45-0400 Body temperature 97.59 [degF] Erna Kelley APRN.SUPERVISOR INSTRUMENT MAINTENANCE Work Phone: [facility] 11-24-2023 10:45-0400 Body weight 77.6 kg Erna Kelley APRN.SUPERVISOR INSTRUMENT MAINTENANCE Work Phone: [facility] 11-24-2023 10:45-0400 Diastolic blood pressure 84 mm[Hg] Erna Kelley APRN.SUPERVISOR INSTRUMENT MAINTENANCE Work Phone: [facility] 11-24-2023 10:45-0400 Heart rate 96 /min Erna Kelley APRN.SUPERVISOR INSTRUMENT MAINTENANCE Work Phone: [facility] 11-24-2023 10:45-0400 Respiratory rate 18 /min Erna Kelley APRN.SUPERVISOR INSTRUMENT MAINTENANCE Work Phone: [facility] 11-24-2023 10:45-0400 SaO2% (BldA) [Mass fraction] 99 % Erna Kelley APRN.SUPERVISOR INSTRUMENT MAINTENANCE Work Phone: [facility] 11-24-2023 10:45-0400 Systolic blood pressure 125 mm[Hg] Erna Kelley APRN.SUPERVISOR INSTRUMENT MAINTENANCE Work Phone: [facility] 02-06-2023 15:50-0400 Diastolic blood pressure 82 mm[Hg] Marsha Haagen INFORMATICS MANAGER.SUPERVISOR INSTRUMENT MAINTENANCE Work Phone: [facility] 02-06-2023 15:50-0400 Heart rate 76 /min Marsha Haagen INFORMATICS MANAGER.SUPERVISOR INSTRUMENT MAINTENANCE Work Phone: [facility] 02-06-2023 15:50-0400 Respiratory rate 16 /min Marsha Haagen INFORMATICS MANAGER.SUPERVISOR INSTRUMENT MAINTENANCE Work Phone: [facility] 02-06-2023 15:50-0400 Systolic blood pressure 124 mm[Hg] Marsha Haagen INFORMATICS MANAGER.SUPERVISOR INSTRUMENT MAINTENANCE Work Phone: [facility] 08-04-2022 09:47-0500 Respiratory rate 16 /min PA NA Wolff PA Work Phone: [facility] Work Phone: 08-04-2022 07:57-0500 Body height 157.48 cm PA NA Wolff PA Work Phone: [facility] Work Phone: 08-04-2022 07:57-0500 Body mass index (BMI) [Ratio] 32.9 kg/m2 PA NA Wolff PA Work Phone: [facility] Work Phone: 08-04-2022 07:57-0500 Body temperature 97.6 [degF] PA NA Wolff PA Work Phone: [facility] Work Phone: 08-04-2022 07:57-0500 Body weight 81.64 kg PA NA Wolff PA Work Phone: [facility] Work Phone: 08-04-2022 07:57-0500 Diastolic blood pressure 87 mm[Hg] PA NA Wolff PA Work Phone: [facility] Work Phone: 08-04-2022 07:57-0500 Heart rate 91 /min PA NA Wolff PA Work Phone: [facility] Work Phone: 08-04-2022 07:57-0500 SaO2% (BldA) [Mass fraction] 100 % PA NA Wolff PA Work Phone: [facility] Work Phone: 08-04-2022 07:57-0500 Systolic blood pressure 141 mm[Hg] PA NA Wolff PA Work Phone: [facility] Work Phone: 07-03-2022 14:19-0400 Diastolic blood pressure 56 mm[Hg] NA Wolff PA-C Work Phone: [facility] 07-03-2022 14:19-0400 Heart rate 54 /min NA Wolff PA-C Work Phone: [facility] 07-03-2022 14:19-0400 Respiratory rate 16 /min NA Wolff PA-C Work Phone: [facility] 07-03-2022 14:19-0400 SaO2% (BldA) [Mass fraction] 98 % NA Wolff PA-C Work Phone: [facility] 07-03-2022 14:19-0400 Systolic blood pressure 100 mm[Hg] NA Wolff PA-C Work Phone: [facility] 06-30-2022 11:26-0400 Body temperature 97.9 [degF] PA NA Wolff PA Work Phone: [facility] Work Phone: 06-30-2022 11:26-0400 Diastolic blood pressure 56 mm[Hg] PA NA Wolff PA Work Phone: [facility] Work Phone: 06-30-2022 11:26-0400 Heart rate 68 /min PA NA Wolff PA Work Phone: [facility] Work Phone: 06-30-2022 11:26-0400 Respiratory rate 16 /min PA NA Wolff PA Work Phone: [facility] Work Phone: 06-30-2022 11:26-0400 SaO2% (BldA) [Mass fraction] 94 % PA NA Wolff PA Work Phone: [facility] Work Phone: 06-30-2022 11:26-0400 Systolic blood pressure 98 mm[Hg] PA NA Wolff PA Work Phone: [facility] Work Phone: 06-27-2022 15:27-0400 Body height 157.48 cm PA NA Wolff PA Work Phone: [facility] Work Phone: 06-27-2022 15:27-0400 Body weight 81.6 kg PA NA Wolff PA Work Phone: [facility] Work Phone: 06-14-2022 16:53-0400 Body mass index (BMI) [Ratio] 32.1 kg/m2 PA NA Wolff PA Work Phone: [facility] Work Phone: 06-14-2022 14:27-0400 Body temperature 97.2 [degF] PA NA Wolff PA Work Phone: [facility] Work Phone: 06-14-2022 14:27-0400 Diastolic blood pressure 90 mm[Hg] PA NA Wolff PA Work Phone: [facility] Work Phone: 06-14-2022 14:27-0400 Heart rate 69 /min PA NA Wolff PA Work Phone: [facility] Work Phone: 06-14-2022 14:27-0400 Respiratory rate 16 /min PA NA Wolff PA Work Phone: [facility] Work Phone: 06-14-2022 14:27-0400 SaO2% (BldA) [Mass fraction] 100 % PA NA Wolff PA Work Phone: [facility] Work Phone: 06-14-2022 14:27-0400 Systolic blood pressure 124 mm[Hg] PA NA Wolff PA Work Phone: [facility] Work Phone: 06-14-2022 10:09-0400 Body height 157.48 cm PA NA Wolff PA Work Phone: [facility] Work Phone: 06-14-2022 10:09-0400 Body weight 80.1 kg PA NA Wolff PA Work Phone: [facility] Work Phone: 06-14-2022 04:46-0400 Body mass index (BMI) [Ratio] 32.3 kg/m2 RICHELLE PEOPLES Work Phone: [facility] Work Phone: 03-04-2022 13:24-0400 Body temperature 97.7 [degF] Erna Kelley APRN.SUPERVISOR INSTRUMENT MAINTENANCE Work Phone: [facility] 03-04-2022 13:24-0400 Body weight 79.11 kg Erna Kelley APRN.SUPERVISOR INSTRUMENT MAINTENANCE Work Phone: [facility] 03-04-2022 13:24-0400 Diastolic blood pressure 74 mm[Hg] Erna Kelley APRN.SUPERVISOR INSTRUMENT MAINTENANCE Work Phone: [facility] 03-04-2022 13:24-0400 Heart rate 90 /min Erna Kelley APRN.SUPERVISOR INSTRUMENT MAINTENANCE Work Phone: [facility] 03-04-2022 13:24-0400 Respiratory rate 21 /min Erna Kelley APRN.SUPERVISOR INSTRUMENT MAINTENANCE Work Phone: [facility] 03-04-2022 13:24-0400 SaO2% (BldA) [Mass fraction] 95 % Erna Kelley APRN.SUPERVISOR INSTRUMENT MAINTENANCE Work Phone: [facility] 03-04-2022 13:24-0400 Systolic blood pressure 120 mm[Hg] Erna Kelley APRN.SUPERVISOR INSTRUMENT MAINTENANCE Work Phone: [facility] 03-02-2022 18:23-0400 Body temperature 97.81 [degF] Erna Kelley APRN.SUPERVISOR INSTRUMENT MAINTENANCE Work Phone: [facility] 03-02-2022 18:23-0400 Body weight 79.74 kg Erna Kelley APRN.SUPERVISOR INSTRUMENT MAINTENANCE Work Phone: [facility] 03-02-2022 18:23-0400 Diastolic blood pressure 70 mm[Hg] Erna Kelley APRN.SUPERVISOR INSTRUMENT MAINTENANCE Work Phone: [facility] 03-02-2022 18:23-0400 Heart rate 76 /min Erna Kelley APRN.SUPERVISOR INSTRUMENT MAINTENANCE Work Phone: [facility] 03-02-2022 18:23-0400 Respiratory rate 16 /min Erna Kelley APRN.SUPERVISOR INSTRUMENT MAINTENANCE Work Phone: [facility] 03-02-2022 18:23-0400 SaO2% (BldA) [Mass fraction] 96 % Erna Kelley APRN.SUPERVISOR INSTRUMENT MAINTENANCE Work Phone: [facility] 03-02-2022 18:23-0400 Systolic blood pressure 120 mm[Hg] Erna Kelley APRN.SUPERVISOR INSTRUMENT MAINTENANCE Work Phone: [facility] 12-26-2021 13:10-0400 Diastolic blood pressure 84 mm[Hg] NA Wolff PA-C Work Phone: [facility] 12-26-2021 13:10-0400 Heart rate 96 /min NA Wolff PA-C Work Phone: [facility] 12-26-2021 13:10-0400 Respiratory rate 18 /min NA Wolff PA-C Work Phone: [facility] 12-26-2021 13:10-0400 SaO2% (BldA) [Mass fraction] 97 % NA Wolff PA-C Work Phone: [facility] 12-26-2021 13:10-0400 Systolic blood pressure 122 mm[Hg] NA Wolff PA-C Work Phone: [facility] 12-23-2021 13:06-0400 Body temperature 99 [degF] Erna Kelley APRN.SUPERVISOR INSTRUMENT MAINTENANCE Work Phone: [facility] 12-23-2021 13:06-0400 Diastolic blood pressure 82 mm[Hg] Erna Kelley APRN.SUPERVISOR INSTRUMENT MAINTENANCE Work Phone: [facility] 12-23-2021 13:06-0400 Heart rate 82 /min Erna Kelley APRN.SUPERVISOR INSTRUMENT MAINTENANCE Work Phone: [facility] 12-23-2021 13:06-0400 Respiratory rate 16 /min Erna Kelley APRN.SUPERVISOR INSTRUMENT MAINTENANCE Work Phone: [facility] 12-23-2021 13:06-0400 SaO2% (BldA) [Mass fraction] 97 % Erna Kelley APRN.SUPERVISOR INSTRUMENT MAINTENANCE Work Phone: [facility] 12-23-2021 13:06-0400 Systolic blood pressure 132 mm[Hg] Erna Kelley APRN.SUPERVISOR INSTRUMENT MAINTENANCE Work Phone: [facility] Encounters Encounter Date Encounter Type Care Provider Facility Start: 02-11-2025 End: 02-11-2025 ambulatory [facility] ASSEMBLY MACHINE OFFBEARER-C Work Phone: [facility] Work Phone: Start: 02-11-2025 End: 02-11-[address] Efren Lynn MD -Radiology [facility] Work Phone: Start: 02-11-2025 End: 02-11-2025 ambulatory [facility] Facility:[facility] Start: 04-27-2024 End: 04-27-2024 ambulatory [facility] Facility:[facility] Start: 11-24-2023 End: 11-24-2023 ambulatory [facility] Facility:[facility] Start: 11-24-2023 End: 11-24-2023 Patient encounter procedure Erna Kelley APRN.SUPERVISOR INSTRUMENT MAINTENANCE Work Phone: [facility] Comment on above: Nausea (Primary Dx); URI, acute Start: 08-05-2023 ambulatory [facility]akira Mattson [facility] Comment on above: Population Health Na vigation Outreach ([facility]) Start: 07-27-2023 Refill M Mary Simms on PA-C Work Phone: [facility] Comment on above: Refill Request Start: 07-23-2023 Telephone encounter Marsha esquivel APRN.SUPERVISOR INSTRUMENT MAINTENANCE Work Phone: [facility] Comment on above: Medication Request Start: 07-05-2023 Telephone encounter Marsha esuqivel APRN.SUPERVISOR INSTRUMENT MAINTENANCE Work Phone: [facility] [place] Comment on above: Results Start: 07-04-2023 End: 07-04-2023 ambulatory Jocelyn WOLFF Facility:[facility] Start: 07-04-2023 End: 07-04-2023 Subsequent hospital visit by physician [facility] (I-Stat/1.5t) Work Phone: Radiology Comment on above: Confusion [R41.0] Start: 06-14-2023 Telephone encounter Marsha esquivel APRN.SUPERVISOR INSTRUMENT MAINTENANCE Work Phone: [facility] Comment on above: Medication Request Start: 06-12-2023 Refill Marsha Macias APRN.SUPERVISOR INSTRUMENT MAINTENANCE Work Phone: Family [facility] [place] Comment on above: Refill Request Start: 06-06-2023 Telephone encounter Marsha esquivel APRN.SUPERVISOR INSTRUMENT MAINTENANCE Work Phone: [facility] [place] Comment on above: Results Start: 06-04-2023 End: 06-05-2023 ambulatory Jocelyn WOLFF Facility:[facility] Start: 06-04-2023 End: 06-05-2023 ambulatory Jocelyn WOLFF Facility:[facility] Start: 04-11-2023 Refill Jocelyn Simms on PA-C Work Phone: [facility] [place] Start: 04-10-2023 ambulatory Jocelyn Simms on PA-C Work Phone: [facility] [place] Start: 03-12-2023 Telephone encounter Other (His t) Work Phone: Orthopaedics Comment on above: Appointment Start: 03-01-2023 Telephone encounter Marsha esquivel APRN.SUPERVISOR INSTRUMENT MAINTENANCE Work Phone: [facility] [place] Comment on above: Results Start: 02-24-2023 Telephone encounter Marsha esquivel APRN.SUPERVISOR INSTRUMENT MAINTENANCE Work Phone: [facility] [place] Comment on above: Results Start: 02-19-2023 End: 02-19-2023 ambulatory Jocelyn WOLFF Facility:[facility] Start: 02-19-2023 End: 02-19-2023 Subsequent hospital visit by physician [facility] [place] Work Phone: Radiology Comment on above: Acute pain of both k nees [M25.561, M25.562] Start: 02-13-2023 Telephone encounter Jocelyn Wolff PA-C Work Phone: Family [facility] [place] Comment on above: Refill Request Start: 02-06-2023 End: 02-07-2023 ambulatory MARSHA MACIAS Facility:[facility] Start: 02-06-2023 End: 02-07-2023 ambulatory Jocelyn WOLFF Facility:[facility] Start: 02-06-2023 End: 02-06-2023 Office outpatient visit 25 minutes Marsha Macias INFORMATICS MANAGER.SUPERVISOR INSTRUMENT MAINTENANCE Work Phone: [facility] [place] Comment on above: Acute pain of both k nees (Primary Dx); Hypokalemia; Hypothyroidism, unspecified type; Hyperlipidemia with target LDL less than 100; Vitamin B 12 deficiency; Iron deficiency anemia, unspecified iron deficiency anemia type; History of gastric bypass; Disorder of bone, unspecified Start: 12-26-2022 End: 12-26-2022 ambulatory Nurse [facility] Work Phone: Nurse Phone Triage Comment on above: Vomiting Start: 12-26-2022 Telephone encounter Jocelyn Wolff PA-C Work Phone: [facility] [place] Comment on above: requesting medicatio n Start: 11-28-2022 ambulatory [facility] [place] Comment on above: Population Health Na vigation Outreach ([facility]) Start: 11-14-2022 Telephone encounter Jocelyn Wolff PA-C Work Phone: [facility] [place] Comment on above: Medication issue Pain management repl y. Start: 11-10-2022 Refill Jocelyn Simms on PA-C Work Phone: [facility] [place] Comment on above: Refill Request Start: 11-08-2022 Telephone encounter Jocelyn Wolff PA-C Work Phone: [facility] Comment on above: Opened In Error Start: 11-07-2022 Refill Jocelyn Simms on PA-C Work Phone: [facility] [place] Comment on above: Refill Request; Refi ll Request Start: 10-15-2022 Telephone encounter Jocelyn Wolff PA-C Work Phone: [facility] [place] Comment on above: Patient Update Start: 10-10-2022 Refill Jocelyn Simms on PA-C Work Phone: [facility] [place] Comment on above: Refill Request Start: 10-08-2022 Telephone encounter Jocelyn Wolff PA-C Work Phone: [facility] [place] Comment on above: Consult Start: 09-27-2022 ambulatory [facility]ira Mattson [facility] [place] Comment on above: Population Health Na vigation Outreach ([facility]) Start: 09-04-2022 Refill Jocelyn Simms on PA-C Work Phone: [facility] [place] Comment on above: Refill Request Patient Update Start: 08-30-2022 Refill Jocelyn Simms on PA-C Work Phone: [facility] [place] Comment on above: Refill Request Start: 08-21-2022 Telephone encounter Jocelyn Wolff PA-C Work Phone: [facility] [place] Comment on above: Patient Question; Me dication Request Start: 08-04-2022 End: 08-04-2022 Emergency department patient visit RICHELLE Wolff PA Work Phone: [facility] Start: 07-27-2022 ambulatory No Pcp [facility] [place] Start: 07-12-2022 Telephone encounter Jocelyn Wolff PA-C Work Phone: [facility] [place] Comment on above: [facility] HH, PT plan of c are Start: 07-11-2022 Telephone encounter Jocelyn Wolff PA-C Work Phone: [facility] [place] Comment on above: Patient Update Start: 07-10-2022 Refill Jocelyn Simms on PA-C Work Phone: [facility] [place] Comment on above: Refill Request; Refi ll Request Medication Problem Start: 07-09-2022 Telephone encounter Jocelyn Simmsmarquez KEITH Work Phone: [facility] Comment on above: Patient Question [facility] HH OT POC Start: 07-04-2022 Telephone encounter Jocelyn Wolff INNA Work Phone: [facility] Comment on above: Medication Question Start: 07-03-2022 End: 07-03-2022 Patient encounter procedure Jocelyn Simmsmarquez KEITH Work Phone: [facility] Comment on above: Encounter for suppor t and coordination of transition of care (Primary Dx); Spinal stenosis, lumbar region with neurogenic claudication; Recurrent major depression in partial remission (HCC); Fibromyalgia; Muscle spasm; Depression, unspecified depression type; 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; Rheumatoid arthritis involving multiple sites, unspecified whether rheumatoid factor present (HCC); Rheumatoid arthritis involving both hands with positive rheumatoid factor (HCC); Iron deficiency anemia, unspecified iron deficiency anemia type; Hypokalemia; Hypothyroidism, unspecified type; Chronic insomnia Start: 06-29-2022 Telephone encounter Jocelyn Reed New KEITH Work Phone: [facility] Comment on above: home health calling Start: 06-14-2022 End: 06-30-2022 Evaluation and management of inpatient PA NA [facility]ff [facility] Start: 06-14-2022 Non-patient / Non-visit PA STEHPEN Simmson PA Work Phone: [facility] Start: 06-14-2022 End: 06-14-2022 Evaluation and management of inpatient PA NA Wolff PA Work Phone: [facility] Start: 06-14-2022 End: 06-14-2022 observation encounter PA Jocelyn Mary PEOPLES Work Phone: [facility] Work Phone: Start: 06-07-2022 Telephone encounter Jocelyn Reed New KEITH Work Phone: [facility] Comment on above: Patient Question Start: 05-24-2022 Telephone encounter Jocelyn Wolff PA-C Work Phone: [facility] [place] Comment on above: Patient Update Start: 05-21-2022 Refill Jocelyn Simms on PA-C Work Phone: [facility] [place] Comment on above: Refill Request Start: 05-15-2022 Telephone encounter Jocelyn Wolff PA-C Work Phone: [facility] [place] Comment on above: Patient Question Start: 05-09-2022 ambulatory [facility]akira Mattson [facility] Comment on above: Population Health Na vigation Outreach ([facility]) Start: 05-02-2022 ambulatory Jocelyn Simms on PA-C Work Phone: [facility] [place] Start: 04-30-2022 Refill Jocelyn Simms on PA-C Work Phone: [facility] [place] Comment on above: Refill Request; Refi ll Request; Refill Request Start: 04-18-2022 Telephone encounter Jocelyn Wolff PA-C Work Phone: [facility] [place] Comment on above: Anxiety Start: 03-15-2022 Telephone encounter Eunice hale APRN.SUPERVISOR INSTRUMENT MAINTENANCE Work Phone: [facility] Comment on above: Results (No More Med s) Start: 03-07-2022 Telephone encounter Shakira Hoyos APRN.SUPERVISOR INSTRUMENT MAINTENANCE Work Phone: [facility] Comment on above: Results Start: 03-06-2022 Refill Jocelyn Simms on PA-C Work Phone: [facility] [place] Comment on above: Refill Request Start: 03-04-2022 End: 03-04-2022 Patient encounter procedure Erna Kelley APRN.SUPERVISOR INSTRUMENT MAINTENANCE Work Phone: [facility] Comment on above: At increased risk of exposure to COVID-19 virus (Primary Dx); Acute upper respiratory infection, unspecified Start: 03-02-2022 End: 03-02-2022 Patient encounter procedure Erna Kelley APRN.SUPERVISOR INSTRUMENT MAINTENANCE Work Phone: [facility] Comment on above: Decreased urination (Primary Dx) Start: 02-01-2022 Telephone encounter Jocelyn Mary Wolff PA-C Work Phone: [facility] [place] Comment on above: Patient Question; Pa tient Update Start: 01-03-2022 Telephone encounter Jocelyn Reed New KEITH Work Phone: [facility] [place] Comment on above: Patient Question Start: 01-02-2022 Telephone encounter Jocelyn Reed New KEITH Work Phone: [facility] [place] Comment on above: Sleep Problem Start: 12-28-2021 Telephone encounter Jocelyn Mary Wolff PA-C Work Phone: [facility] [place] Comment on above: Medication Problem Start: 12-26-2021 End: 12-26-2021 Subsequent hospital visit by physician [facility] Work Phone: Radiology Comment on above: Acute pain of right knee [M25.561] Start: 12-26-2021 End: 12-26-2021 Patient encounter procedure Jocelyn Reed New KEITH Work Phone: [facility] [place] Comment on above: Injury of right knee , initial encounter (Primary Dx); Chronic insomnia; Sprain of lateral collateral ligament of right knee, initial encounter; Knee effusion, right; Pre-ulcerative calluses; Rheumatoid arthritis involving multiple sites with positive rheumatoid factor (HCC); Vomiting and diarrhea Start: 12-23-2021 End: 12-23-2021 Patient encounter procedure Erna Kelley APRN.CNP Work Phone: [facility] Comment on above: Acute pain of right knee (Primary Dx) Start: 12-06-2021 ambulatory Shakira Mattson MA [facility] Comment on above: Population Health Na vigation Outreach ([facility] ) Start: 12-04-2021 Refill Jocelyn Reed Mendez CASTANONC Work Phone: [facility] [place] Comment on above: Prescription Refills Start: 11-27-2021 End: 11-27-2021 Subsequent hospital visit by physician [facility] Work Phone: Radiology Comment on above: Osteoporosis, unspec ified osteoporosis type, unspecified pathological fracture presence [M81.0] Start: 11-23-2021 Telephone encounter Faye Beltran MD Work Phone: [facility] Comment on above: Patient Update Start: 11-23-2021 End: 11-23-2021 Patient encounter procedure Faye Beltran MD Work Phone: [facility] Comment on above: Rheumatoid arthritis involving multiple sites, unspecified whether rheumatoid factor present (HCC) (Primary Dx); Osteoporosis, unspecified osteoporosis type, unspecified pathological fracture presence; 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; Lumbar spondylosis; Primary osteoarthritis of right knee; Fibromyalgia; Rheumatoid arthritis involving both hands with positive rheumatoid factor (HCC) Start: 10-13-2021 Telephone encounter Jcoelyn Wloff PA-C Work Phone: [facility] [place] Comment on above: Medication Problem Start: 03-27-2021 End: 03-27-2021 Subsequent hospital visit by physician [facility] [place] Work Phone: Radiology Comment on above: Acute pain of right shoulder [M25.511] Procedures Date Procedure Procedure Detail Performing Clinician Start: 02-11-2025 X-ray of knee, one o r two views Sena Garibay NP-C Work Phone: Start: 02-11-2025 X-ray of lumbar spin e, two or three views Sena Garibay ASSEMBLY MACHINE OFFBEARER-C Work Phone: Start: 07-04-2023 Mri brain brain stem w/o contrast material Marsha Macias APRN.SUPERVISOR INSTRUMENT MAINTENANCE Work Phone: Start: 02-19-2023 Radiologic exam knee complete 4/more views Marsha Macias APRN.SUPERVISOR INSTRUMENT MAINTENANCE Work Phone: Start: 02-06-2023 Lipid 1996 panel - S tracie or Plasma Marsha Macias APRN.SUPERVISOR INSTRUMENT MAINTENANCE Work Phone: Start: 03-02-2022 Urnls dip stick/tabl et rgnt auto w/o microscopy [facility] Provider Start: 12-26-2021 Radiologic exam knee complete 4/more views Erna Kelley APRN.SUPERVISOR INSTRUMENT MAINTENANCE Work Phone: Start: 11-27-2021 Dxa bone density santi dy 1/> sites axial skel Faye Beltran MD Work Phone: Start: 03-27-2021 Radex shoulder compl ete minimum 2 views Jude Weiner APRN.SUPERVISOR INSTRUMENT MAINTENANCE Work Phone: Start: 01-21-2014 Mammography Faye Beltran MD Work Phone: Viral antigen assay PA STEPHEN barragan PA Work Phone: Plan of Treatment Date Care Activity Detail Author Start: 2030 PNEUMOCOCCAL (3 - PP SV23 or PCV20) PNEUMOCOCCAL (3 - PPSV23 or PCV20) [facility] Start: 2030 Pneumococcal vaccination Pneum ococcal Vaccine (3 - PPSV23 or PCV20) [facility] Start: 02-07-2028 Lipid 1996 panel - S tracie or Plasma Lipid Screening [facility] Start: 02-07-2028 Lipid panel Lipid Screening [facility] Start: 02-07-2028 LIPID SCREEN LIPID SCREEN [facility] Start: 06-04-2026 Diabetes Screening Diabetes Screenin g [facility] Start: 02-06-2026 DIABETES SCREEN DIABETES SCREEN [facility] Start: 11-23-2024 DIABETES SCREEN DIABETES SCREEN [facility] Start: 07-06-2024 LIPID SCREEN LIPID SCREEN [facility] Start: 06-04-2024 Annual PCP Team Seo Engineer mei Disease Visit Annual PCP Team Chronic Disease Visit [facility] Start: 05-03-2024 Covid-19 Vaccine ( season) Covid-19 Vaccine ( season) [facility] Start: 05-03-2024 Covid-19 Vaccine ( season) Covid-19 Vaccine ( season) [facility] Start: 05-03-2024 Influenza vaccination Influenza Vacc ine (#1) [facility] Start: 02-07-2024 ANNUAL PCP TEAM CATERING CONVENTION SERVICES MANAGER MEI DISEASE VISIT ANNUAL PCP TEAM CHRONIC DISEASE VISIT [facility] Start: 11-24-2023 End: 12-08-2023 COVID & INFLUENZA A/B & RSV NAAT, ROUTINE COVID & INFLUENZA A/B & RSV NAAT, ROUTINE Microbiology Routine URI, acute Expected: 11/24/2023, Expires: 12/08/2023 [facility] Work Phone: Comment on above: Expected: 11/24/2023 , Expires: 12/08/2023 Start: 07-03-2023 ANNUAL PCP TEAM CATERING CONVENTION SERVICES MANAGER MEI DISEASE VISIT ANNUAL PCP TEAM CHRONIC DISEASE VISIT [facility] Start: 06-07-2023 End: 12-07-2023 Cobalamin (Vitamin B12) [Mass/volume] in Serum or Plasma VITAMIN B12 BLOOD Lab Routine B12 deficiency Expected: 06/07/2023, Expires: 12/07/2023 [facility] Work Phone: Comment on above: Expected: 06/07/2023 , Expires: 12/07/2023 Start: 06-06-2023 End: 12-06-2023 25-hydroxyvitamin D3 [Mass/volume] in Serum or Plasma VITAMIN D 25 HYDROXY Lab Routine Vitamin D deficiency Expected: 06/06/2023, Expires: 12/06/2023 [facility] Work Phone: Comment on above: Expected: 06/06/2023 , Expires: 12/06/2023 Start: 06-06-2023 End: 12-06-2023 Thyrotropin [Units/volume] in Serum or Plasma TSH BLD Lab Routine Hypothyroidism, unspecified type Expected: 06/06/2023, Expires: 12/06/2023 [facility] Work Phone: Comment on above: Expected: 06/06/2023 , Expires: 12/06/2023 Start: 06-06-2023 End: 12-06-2023 Thyroxine (T4) free [Mass/volume] in Serum or Plasma T4 FREE/FREE THYROX Lab Routine Hypothyroidism, unspecified type Expected: 06/06/2023, Expires: 12/06/2023 [facility] Work Phone: Comment on above: Expected: 06/06/2023 , Expires: 12/06/2023 Start: 06-06-2023 End: 12-06-2023 Zinc [Mass/volume] in Serum or Plasma ZINC BLD Lab Routine Zinc deficiency Expected: 06/06/2023, Expires: 12/06/2023 [facility] Work Phone: Comment on above: Expected: 06/06/2023 , Expires: 12/06/2023 Start: 05-03-2023 Covid-19 Vaccine () Covid-19 Vaccine () [facility] Start: 05-03-2023 Influenza vaccination C [facility] Start: 12-26-2022 ANNUAL PCP TEAM CATERING CONVENTION SERVICES MANAGER MEI DISEASE VISIT ANNUAL PCP TEAM CHRONIC DISEASE VISIT [facility] Start: 09-14-2022 ANNUAL PCP TEAM CATERING CONVENTION SERVICES MANAGER MEI DISEASE VISIT ANNUAL PCP TEAM CHRONIC DISEASE VISIT [facility] Start: 09-14-2022 SHINGRIX VACCINE (1 of 2) MARTINEZ GRIX VACCINE (1 of 2) [facility] Comment on above: Postponed from 10/27 (Declined at this time) Start: 09-02-2022 End: 11-02-2022 Thyrotropin [Units/volume] in Serum or Plasma TSH BLD Lab Routine Hypothyroidism, unspecified type Expected: 09/02/2022, Expires: 11/02/2022 [facility] Work Phone: Comment on above: Expected: 09/02/2022 , Expires: 11/02/2022 Start: 09-02-2022 End: 11-02-2022 Thyroxine (T4) free [Mass/volume] in Serum or Plasma T4 FREE/FREE THYROX Lab Routine Hypothyroidism, unspecified type Expected: 09/02/2022, Expires: 11/02/2022 [facility] Work Phone: Comment on above: Expected: 09/02/2022 , Expires: 11/02/2022 Start: 07-03-2022 End: 09-02-2022 Basic metabolic 2000 panel - Serum or Plasma BASIC METABOLIC PNL Lab Routine Recurrent major depression in partial remission (HCC) Hypokalemia Expected: 07/03/2022, Expires: 09/02/2022 [facility] Work Phone: Comment on above: Expected: 07/03/2022 , Expires: 09/02/2022 Start: 07-03-2022 End: 09-02-2022 CBC W Auto Differential panel - Blood CBC + DIFF Lab Routine Recurrent major depression in partial remission (HCC) Iron deficiency anemia, unspecified iron deficiency anemia type Expected: 07/03/2022, Expires: 09/02/2022 [facility] Work Phone: Comment on above: Expected: 07/03/2022 , Expires: 09/02/2022 Start: 07-03-2022 End: 09-02-2022 Iron and Iron binding capacity panel - Serum or Plasma IRON + TIBC Lab Routine Iron deficiency anemia, unspecified iron deficiency anemia type Expected: 07/03/2022, Expires: 09/02/2022 [facility] Work Phone: Comment on above: Expected: 07/03/2022 , Expires: 09/02/2022 Start: 06-30-2022 Patient discharge [facility] Work Phone: Start: 06-26-2022 Referral to service [facility] Work Phone: Start: 06-25-2022 [facility] Work Phone: Start: 06-22-2022 [facility] Work Phone: Start: 06-15-2022 Development of care plan [facility] Work Phone: Start: 06-15-2022 Developing a treatme nt plan [facility] Work Phone: Start: 06-14-2022 Following clinical pathway protocol [facility] Work Phone: Start: 06-14-2022 Admission procedure [facility] Work Phone: Start: 06-14-2022 Measuring intake and output [facility] Work Phone: Start: 06-14-2022 Patient referral to dietitian [facility] Work Phone: Start: 06-14-2022 Referral to occupati onal therapist [facility] Work Phone: Start: 06-14-2022 Referral to service [facility] Work Phone: Start: 06-14-2022 Vital signs measurements [facility] Work Phone: Start: 06-14-2022 End: 06-14-2022 [facility] Work Phone: Start: 06-14-2022 Patient discharge [facility] Work Phone: Start: 06-14-2022 Application of intermittent pneumatic compression device [facility] Work Phone: Start: 06-14-2022 Following clinical pathway protocol [facility] Work Phone: Start: 06-14-2022 Application of ice collar, cap or bag [facility] Work Phone: Start: 06-14-2022 Assessment of risk o f venous thromboembolism [facility] Work Phone: Start: 06-14-2022 Fall prevention [facility] Work Phone: Start: 06-14-2022 Inhalation therapy procedure [facility] Work Phone: Start: 06-14-2022 Insertion of cathete r into peripheral vein [facility] Work Phone: Start: 06-14-2022 Introduction of urin ken catheter [facility] Work Phone: Start: 06-14-2022 Measuring intake and output [facility] Work Phone: Start: 06-14-2022 Oxygen therapy [facility] Work Phone: Start: 06-14-2022 Providing care accor ding to standard [facility] Work Phone: Start: 06-14-2022 Provision of activit y privileges [facility] Work Phone: Start: 06-14-2022 Referral to occupati onal therapist [facility] Work Phone: Start: 06-14-2022 Referral to service [facility] Work Phone: Start: 06-14-2022 [facility] Work Phone: Start: 06-14-2022 Admission procedure [facility] Work Phone: Start: 06-14-2022 Patient referral to dietitian [facility] Work Phone: Start: 05-03-2022 Influenza vaccination C [facility] Start: 04-25-2022 COVID-19 VACCINE (#1) COVID-19 VACCI NE (#1) [facility] Comment on above: Postponed from 10/27 (Declined at this time) Postponed from 04/26 (Declined at this time) Start: 04-25-2022 COVID-19 VACCINE (1) COVID-19 VACCIN E (1) [facility] Comment on above: Postponed from 10/27 (Declined at this time) Start: 03-04-2022 End: 03-18-2022 Influenza virus A and B RNA and SARS-CoV-2 (COVID-19) N gene panel - Respiratory specimen by NURY with probe detection [facility] Work Phone: Comment on above: Expected: 03/04/2022 , Expires: 03/18/2022 Start: 03-01-2022 Influenza vaccination INFLUENZA (#1) [facility] Comment on above: Postponed from 05/03 (Declined at this time) Start: 12-25-2021 End: 01-22-2023 XR KNEE GENERAL 4V AP BOTH/PA BOTH/LAT/MERC RIGHT XR KNEE GENERAL 4V AP BOTH/PA BOTH/LAT/MERC RIGHT Radiology STAT Acute pain of right knee Expected: 12/25/2021, Expires: 01/22/2023 [facility] Work Phone: Comment on above: Expected: 12/25/2021 , Expires: 01/22/2023 Start: 11-23-2021 End: 01-23-2022 BENZO CONFIRM, URINE [facility] Work Phone: Comment on above: Expected: 11/23/2021 , Expires: 01/23/2022 Start: 11-23-2021 End: 01-23-2022 ETHANOL CONFIRMATION, URINE [facility] Work Phone: Comment on above: Expected: 11/23/2021 , Expires: 01/23/2022 Start: 11-23-2021 End: 01-23-2022 PAIN PANEL, UR QUANT [facility] Work Phone: Comment on above: Expected: 11/23/2021 , Expires: 01/23/2022 Start: 07-24-2018 PNEUMOCOCCAL (2 - PCV) PNEUMOCOCCAL (2 - PCV) [facility] Start: 2015 SHINGRIX VACCINE (1 of 2) MARTINEZ GRIX VACCINE (1 of 2) [facility] Start: 01-21-2015 Mammography [facility] Start: 01-21-2015 Screening for malign ant neoplasm of breast Mammogram Screening [facility] Start: 08-26-2012 HEPATITIS B (2 of 3 - 3-dose series) [facility] Start: 08-26-2012 Hepatitis B Vaccine (2 of 3 - 19+ 3-dose series) Hepatitis B Vaccine (2 of 3 - 19+ 3-dose series) [facility] Start: 2010 COLOGUARD (FIT-DNA) COLOGUARD (FIT-D NA) [facility] Start: 2010 Colonoscopy COLONOSCOPY [facility] Start: 2010 COLORECTAL CANCER SCREENING COLORECTAL CANCER SCREENING [facility] Start: [address] COLONOGRAPHY [facility] Start: 2010 FECAL OCCULT BLOOD FECAL OCCULT BLOO D [facility] Start: 2010 Screening for malign ant neoplasm of colon [facility] Start: 2010 SIGMOIDOSCOPY SIGMOIDOSCOPY [facility] Start: 01-11-2009 Urine microalbumin profile [facility] Start: 1983 HIV SCREENING HIV SCREENING [facility] Start: 1983 HIV screening HIV Screening [facility] Start: 1983 SPIROMETRY SPIROMETRY [facility] Start: 04-26-1966 COVID-19 VACCINE (#1) COVID-19 VACCI NE (#1) [facility] Bacteria identified in Urine by Culture URINE CULTURE Microbiology Routine Decreased urination Ordered: 03/02/2022 [facility] Work Phone: Comment on above: Ordered: 03/02/2022 End: 10-13-2022 BENZO CONFIRM, URINE BENZO CONFIRM, URINE Lab Routine intermediate prescription opiate use 1 Occurrences starting 10/13/2021 until 10/13/2022 [facility] Work Phone: Comment on above: 1 Occurrences starti ng 10/13/2021 until 10/13/2022 Calcium.ionized [Mass/volume] in Serum or Plasma [facility] Work Phone: End: 05-09-2024 [facility] SCREENING [facility] SCREENING Radiology Routine Encounter for screening mammogram for breast cancer 1 Occurrences starting 04/10/2023 until 05/09/2024 [facility] Work Phone: Comment on above: 1 Occurrences starti ng 04/10/2023 until 05/09/2024 End: 10-13-2022 PAIN PANEL, UR QUANT PAIN PANEL, UR QUANT Lab Routine intermediate prescription opiate use 1 Occurrences starting 10/13/2021 until 10/13/2022 [facility] Work Phone: Comment on above: 1 Occurrences starti ng 10/13/2021 until 10/13/2022 Patient Education Managing Chronic Pain [facility] Work Phone: Patient referral [facility] Work Phone: End: 06-01-2023 Screening mammography bi 2-view breast inc cad [facility] SCREENING Radiology Routine Encounter for screening mammogram for breast cancer 1 Occurrences starting 05/02/2022 until 06/01/2023 [facility] Work Phone: Comment on above: 1 Occurrences starti ng 05/02/2022 until 06/01/2023 UA DIP, URINE (POC) UA DIP, URIN E (POC) Lab Routine Decreased urination Ordered: 03/02/2022 [facility] Work Phone: Comment on above: Ordered: 03/02/2022 End: 03-07-2024 XR KNEE GENERAL 4V AP BOTH/PA BOTH/LAT/MERC BILATERAL XR KNEE GENERAL 4V AP BOTH/PA BOTH/LAT/MERC BILATERAL Radiology Routine Acute pain of both knees 1 Occurrences starting 02/06/2023 until 03/07/2024 [facility] Work Phone: Comment on above: 1 Occurrences starti ng 02/06/2023 until 03/07/2024 [facility] Immunizations Immunization Date Immunization Notes Care Provider [facility] 05-23-2020 influenza, injectabl e, quadrivalent, preservative free Sena Garibay ASSEMBLY MACHINE OFFBEARER-C Work Phone: [facility] 05-23-2020 influenza, seasonal, injectable Faye Beltran MD Work Phone: [facility] 05-23-2020 influenza virus vacc ine, unspecified formulation Marsha Macias INFORMATICS MANAGER.SUPERVISOR INSTRUMENT MAINTENANCE Work Phone: [facility] 05-23-2018 influenza, injectabl e, quadrivalent, contains preservative Faye Beltran MD Work Phone: [facility] 05-23-2018 influenza, injectabl e, quadrivalent, preservative free Sena Garibay ASSEMBLY MACHINE OFFBEARER-C Work Phone: [facility] 05-23-2018 influenza, seasonal, injectable PA STEPHEN PEOPLES Work Phone: [facility] Work Phone: 07-24-2017 pneumococcal conjuga te vaccine, 13 valent Faye Beltran MD Work Phone: [facility] 07-24-2017 pneumococcal polysaccharide vaccine, 23 valent STEPHEN Wolff PA-C Work Phone: [facility] 06-24-2017 influenza, injectabl e, quadrivalent, contains preservative Faye Beltran MD Work Phone: [facility] 06-24-2017 influenza, injectabl e, quadrivalent, preservative free Sena Phoenix ASSEMBLY MACHINE OFFBEARER-C Work Phone: [facility] 06-24-2017 influenza, seasonal, injectable PA NA Wolff PA Work Phone: [facility] Work Phone: 06-21-2016 influenza, injectabl e, quadrivalent, contains preservative Faye Beltran MD Work Phone: [facility] 06-21-2016 influenza, injectabl e, quadrivalent, preservative free Sena Phoenix ASSEMBLY MACHINE OFFBEARER-C Work Phone: [facility] 06-21-2016 influenza, seasonal, injectable PA NA Wolff PA Work Phone: [facility] Work Phone: 08-01-2015 influenza, injectabl e, quadrivalent, contains preservative Faye Beltran MD Work Phone: [facility] 08-01-2015 influenza, injectabl e, quadrivalent, preservative free Sena Phoenix ASSEMBLY MACHINE OFFBEARER-C Work Phone: [facility] 08-01-2015 influenza, seasonal, injectable PA NA Wolff PA Work Phone: [facility] Work Phone: 07-06-2014 influenza, injectabl e, quadrivalent, preservative free Sena Phoenix ASSEMBLY MACHINE OFFBEARER-C Work Phone: [facility] 07-06-2014 influenza, seasonal, injectable Faye Beltran MD Work Phone: [facility] 07-31-2013 influenza virus vacc ine, unspecified formulation Faye Beltran MD Work Phone: [facility] 09-10-2012 influenza virus vacc ine, unspecified formulation Faye Beltran MD Work Phone: [facility] 07-29-2012 hepatitis A vaccine, unspecified formulation Faye Beltran MD Work Phone: [facility] 07-29-2012 hepatitis B vaccine, adult dosage Faye Beltran MD Work Phone: [facility] 07-29-2012 hepatitis B vaccine, unspecified formulation STEPHEN Wolff PA-C Work Phone: [facility] 08-12-2007 influenza virus vacc ine, unspecified formulation Faye Beltran MD Work Phone: [facility] 01-11-1999 diphtheria and tetan us toxoids, adsorbed for pediatric use Faye Beltran MD Work Phone: [facility] Work Phone: 05-02-1976 measles, mumps and rubella virus vaccine Faye Beltran MD Work Phone: [facility] Work Phone: 05-02-1976 trivalent poliovirus vaccine, live, oral Faye Beltran MD Work Phone: [facility] Work Phone: Payers Date Payer Category Payer Self-pay [id number] 2015 Medicare MEDICARE MEDICAR E A AND B [id number] 2015-Present [phone] [place] [id number] Medicare [id number] 2015 Medicare MEDICARE MEDICAR E A AND B [id number] 2015-Present [phone] [place] [id number] Medicare [id number] 2015 Medicare [id number] 2009 Unknown [facility] GENERIC [id number] 2009-Present [phone] [place] [address] [id number] Unknown [id number] Unknown [id number] Social History Date Type Detail Facility Start: 08-31-2011 End: 11-01-2022 Tobacco smoking status NHIS Never smoked tobacco [facility] Start: 03-11-2021 End: 11-23-2021 Alcohol intake Current non-drinker of alcohol (finding) [facility] Start: 1965 Sex Assigned At Not on file [facility] Start: 02-25-2021 End: 03-04-2022 Exposure to SARS-CoV-2 (event) Not sure [facility] Start: 08-31-2011 Tobacco use and exposure Smokeless tobacco non-user [facility] Start: 05-11-2022 End: 05-21-2022 Exposure to SARS-CoV-2 (event) Unable to assess [facility] Work Phone: Start: 06-14-2022 End: 08-04-2022 Tobacco smoking status NHIS Unknown if ever smoked [facility] Work Phone: Start: 06-29-2013 None [facility] Start: 02-04-2019 With Family [facility] Start: 11-06-2019 Non-smoker [facility] Start: 1965 Sex Assigned At Female W [facility] Start: 08-09-2020 End: 02-06-2023 History of Social function [facility] Start: 08-09-2020 End: 02-06-2023 Tobacco use panel [facility] Adult Depression Screening Assessment 0 [facility] Medical Equipment Procedure Code Equipment Code Equipment Origin al Text Equipment Identifier Dates Patch Srg 5.5x4.3in [facility] [employer] - [id number] Start: 04-22-2015 [id number] Start: 02-25-2015 Comment on above: test once/day. DX 25 0.00 no insulin 1 Each once every mo nth. 1 ml, 25 gauge 1/2 Goals Date Patient Goal Desired Activity /State Functional Status Date Assessment Result Facility 06-30-2022 Functional status Ambulates [facility] Work Phone: 06-14-2022 Functional status Bedrest [facility] Work Phone: Mental Status Date Assessment Result Facility 08-04-2022 Cognitive function Level Of Consciousness Awake [facility] Work Phone: 06-30-2022 Cognitive function Voice/Name [facility] Work Phone: 06-23-2022 Cognitive function Appropriate;Cooperativ e [facility] Work Phone: 06-14-2022 Cognitive function Awake;Alert;A ppropriate;Follow s Commands [facility] Work Phone: 06-14-2022 Cognitive function Voice/Name [facility] Work Phone: Clinical Notes 11-11-2018 to 02-12-2025 Erna Kelley APRN.SUPERVISOR INSTRUMENT MAINTENANCE - 11/24/2023 10:50 AM Shakira Saini MA - 08/05/2023 8:51 AM ESTTelephone Encounter - Miller Stafford MD - 07/27/2023 10:59 AM ESTPatient Instructions Note Date & Type Note Facility 02-12-2025 Radiology Diagnostic study note [facility] Imaging Services [address], [place] [id number] Lumbar Spine 2 or 3 Views MR#: [id number] Acct: [id number] Name: PAULINA MEI Rep #: [id number] : 1965 F 59 From: Germán Montes MD PCP: LEROY Khalil Status: REG CLI Study:Lumbar Spine 2 or 3 Views Date of Exam: 02/11/25 Exam# [id number] Ordering Dr: Addi Lynn MD PROCEDURE: LUMBAR SPINE 2 OR 3 VIEWS 02/11/2025 REASON FOR EXAM: PAIN TECHNIQUE: 2 view(s) of the lumbar spine COMPARISON: None. FINDINGS: Mild degenerative levoscoliosis apex at L3. There are diffuse spondylotic changes. Findings are demonstrated to by diffuse disc space narrowing, osteophyte formation and degenerative endplate sclerosis. There is diffuse facet joint arthropathy with secondary bilateral neural foramina narrowing. No fracture or dislocation is seen. No aggressive lytic or blastic bony lesion is noted. Metallic clips are folds in the right upper quadrant. Mild diffuse gaseous dilatation of the bowels. RAD/Lumbar Spine 2 or 3 Views IMPRESSION: Spondylosis. [facility] CC: LEROY Garibay; Dr. Efren Lynn MD ~ Health Careers Instructor: Signed [facility] 02-12-2025 Radiology Diagnostic study note [facility] Imaging Services [address] [place] [address] Knee 1 or 2 Views MR#: [id number] Acct: [id number] Name: PAULINA MEI Rep #: [id number] : 1965 F 59 From: Germán Montes MD PCP: LEROY Khalil Status: REG CLI Study:Knee 1 or 2 Views Date of Exam: Exam# [id number] Ordering Dr: Addi Lynn MD PROCEDURE: KNEE 1 OR 2 VIEWS 02/11/2025 REASON FOR EXAM: OA TECHNIQUE: 2 view(s) of the left knee COMPARISON: 05/18/2021. FINDINGS: Moderate tricompartmental changes of degenerative joint disease, more prominent in the medial tibiofemoral compartment. Mild osteopenia of the visualized bones. Degenerative joint disease. No fracture or dislocation is seen. No lytic or blastic bone lesion is noted. RAD/Knee 1 or 2 Views IMPRESSION: Moderate tricompartmental changes of degenerative joint disease, increased. Reading [facility] CC: LEROY Garibay; Dr. Efren Lynn MD ~ Health Careers Instructor: Signed [facility] 02-12-2025 Radiology Diagnostic study note [facility] Imaging Services [address] [place] [address] Knee 1 or 2 Views MR#: [id number] Acct: [id number] Name: PAULINA MEI Rep #: [id number] : 1965 F 59 From: Germán Montes MD PCP: LEROY Khalil Status: REG CLI Study:Knee 1 or 2 Views Date of Exam: Exam# [id number] Ordering Dr: Addi Lynn MD PROCEDURE: KNEE 1 OR 2 VIEWS 02/11/2025 REASON FOR EXAM: OA TECHNIQUE: 2 view(s) of the right knee COMPARISON: None. FINDINGS: Moderate tricompartmental changes of degenerative joint disease, more prominent in the medial tibiofemoral compartment. Mild osteopenia of the visualized bones. Degenerative joint disease. No fracture or dislocation is seen. No lytic or blastic bone lesion is noted. RAD/Knee 1 or 2 Views IMPRESSION: No evidence for acute abnormality. Reading Location: [place] [address] CC: ASSEMBLY MACHINE OFFBEARER-C Sena Garibay; Dr. Efren Lynn MD ~ Health Careers Instructor: Signed [facility] 11-24-2023 Note HNO ID: [id number] Author: ERNA KELLEY APRN.[facility] Service: ? Author Type: Nurse Practitioner Type: Progress Notes Filed: 11/24/2023 10:59 Note Text: CC: Patient presents with: Vomiting: Diarrhea x2 days, possible food poisoning HPI: Paulina Mei is a 58 year old female who presents to the office with complaint of diarrhea for a few days. Symptoms are staying the same. Associated symptoms includes vomiting and diarrhea. Denies fever and cough. Treatments tried include nothing so far. with no relief of symptoms. Sick contacts: unknown. History of asthma, frequent episodes of bronchitis, chronic bronchitis, bronchiectasis or COPD: No Smoker: No Seasonal/environmental allergies: No The ROS is otherwise negative. The patient's pmh, medications, allergies, and past visits are reviewed. PHYSICAL EXAM: BP 125/84 Pulse 96 Temp 36.4 ?C (97.6 ?F) Resp 18 Wt 77.6 kg (171 lb 1.2 oz) LMP 02/05/2008 SpO2 99% BMI 31.29 kg/m? General appearance: alert, cooperative, pleasant, in no acute distress Head: Normocephalic Eyes: EOM's intact, conjunctiva pink and moist, no icterus, sclera white, non-injected Heart: Negative. RRR without obvious murmur, gallop, or rubs. No ectopy. Lungs: clear to auscultation, without rales or wheeze, good air exchange Abdomen: tender generalized PAST MEDICAL HISTORY Diagnosis Date Anemia 08/14/2017 Chronic insomnia 09/09/2017 Depression 11/17/2012 Elevated liver function tests 05/22/2012 Fibromyalgia Hyperlipidemia LDL goal < 100 06/26/2010 Hypoglycemia after GI (gastrointestinal) surgery 04/30/2014 Iron deficiency anemia, unspecified Iron malabsorption 12/02/2017 Irritable bowel syndrome Migraine, unspecified, without mention of intractable migraine without mention of status migrainosus Morbid obesity due to excess calories ([facility]) 12/15/2015 Polyneuropathy in other diseases classified elsewhere ([facility]) Recurrent major depression in partial remission ([facility]) 02/29/2020 Rheumatoid arthritis(714.0) Systemic lupus erythematosus arthritis ([facility]) 03/18/2014 Unspecified asthma(493.90) Unspecified hypothyroidism Vitamin B 12 deficiency 11/22/2017 Vitamin D deficiency 09/16/2012 PAST SURGICAL HISTORY Procedure Laterality Date ARTHROSCOPY KNEE DIAGNOSTIC W/WO SYNOVIAL BX SPX Arthroscopy, knee CHOLECYSTECTOMY 1992 Cholecystectomy COLONOSCOPY 1999 ESOPHAGOGASTRODUODENOSCOPY TRANSORAL DIAGNOSTIC 1994 EGD HERNIA REPAIR 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 LAPS SUPRACRV HYSTERECT 250 GM/< RMVL TUBE/OVAR 08/09 endometriosis and ovarian cysts (EDIT 03/2015 abdominal incision) PULMONARY FUNCTION TEST ALLERGIES Bactrim [Sulfamethoxazole-Trimethoprim], Benzamycin [Erythromycin-Benzoyl Peroxide], Elavil [Amitriptyline], Environmental [Other], Guiafen-Pse [Pseudoephedrine-Guaifenesin], Humira [Adalimumab], Lodine [Etodolac], Methotrexate, Neurontin [Gabapentin], Nsaids (Non-Steroidal Anti-Inflammatory Drug), Ultram [Tramadol Hcl], Vicodin [Hydrocodone-Acetaminophen], Voltaren [Diclofenac Sodium], and Zostrix-Hp [Capsaicin] MEDICATIONS DULoxetine (CYMBALTA) 60 mg capsule Take 1 capsule by mouth two times a day. gabapentin (NEURONTIN) 600 mg tablet Take 1 tablet by mouth three times a day for 60 days. topiramate (TOPAMAX) 100 mg tablet Take 2 tablets by mouth two times a day. traZODone (DESYREL) 150 mg tablet Take 1 tablet by mouth daily at bedtime. ondansetron orally disintegrating (ZOFRAN ODT) 4 mg disintegrating tablet Take 1 tablet by mouth every 8 hours as needed for nausea/vomiting. levothyroxine (LEVOXYL) 88 mcg tablet Take 1 tablet by mouth once daily. Take on empty stomach. For Thyroid calcium carbonate 600 mg-cholecalciferol 200 units (CALCIUM 600 + D,3,) 600 mg-5 mcg (200 unit) tab Take 1 tablet by mouth two times a day. cyanocobalamin 1,000 mcg/mL Inject 1 mL subcutaneously once every month. Syringe with Needle, Disp, (MONOJECT SAFETY SYRINGES) syrg 1 Each once every month. 1 ml, 25 gauge 1/2 Zinc Sulfate 50 mg zinc (220 mg) tab Take 1 tablet by mouth once daily. cholecalciferol (VITAMIN D3) 5,000 unit tab Take 1 tablet by mouth once daily. ferrous sulfate 325 mg (65 mg iron) tablet Take 1 tablet by mouth daily with breakfast. tiZANidine (ZANAFLEX) 4 mg tablet Take 2 tablets by mouth every 6 hours as needed (muscle spasms). simethicone, chewable (MYLICON) 80 mg chewable tablet Take 1 tablet by mouth three times daily as needed. busPIRone (BUSPAR) 10 mg tablet Take 1 tablet by mouth three times daily. naloxone 4 mg/actuation nasal spray (NARCAN) Use 1 spray in one nostril as needed for overdose. May repeat every 2 to 3 min in alternating nostrils until medical assistance is available naloxone (NARCAN) 4 mg/actuation nasal spray 1 [place] by nasal (alternating) route as directed for 1 dose. 1 spray into 1 nostril. Additional doses may be given every 2-3 minutes until emergency arri (more content not included)... [facility] 11-24-2023 History of Presen t illness Narrative CC: Patient presents with: Vomiting: Diarrhea x2 days, possible food poisoning HPI: Paulina Mei is a 58 year old female who presents to the office with complaint of diarrhea for a few days. Symptoms are staying the same. Associated symptoms includes vomiting and diarrhea. Denies fever and cough. Treatments tried include nothing so far. with no relief of symptoms. Sick contacts: unknown. History of asthma, frequent episodes of bronchitis, chronic bronchitis, bronchiectasis or COPD: No Smoker: No Seasonal/environmental allergies: No The ROS is otherwise negative. The patient's pmh, medications, allergies, and past visits are reviewed. PHYSICAL EXAM: BP 125/84 Pulse 96 Temp 36.4 C (97.6 F) Resp 18 Wt 77.6 kg (171 lb 1.2 oz) LMP 02/05/2008 SpO2 99% BMI 31.29 kg/m General appearance: alert, cooperative, pleasant, in no acute distress Head: Normocephalic Eyes: EOM's intact, conjunctiva pink and moist, no icterus, sclera white, non-injected Heart: Negative. RRR without obvious murmur, gallop, or rubs. No ectopy. Lungs: clear to auscultation, without rales or wheeze, good air exchange Abdomen: tender generalized PAST MEDICAL HISTORY Diagnosis Date Anemia 08/14/2017 Chronic insomnia 09/09/2017 Depression 11/17/2012 Elevated liver function tests 05/22/2012 Fibromyalgia Hyperlipidemia LDL goal < 100 06/26/2010 Hypoglycemia after GI (gastrointestinal) surgery 04/30/2014 Iron deficiency anemia, unspecified Iron malabsorption 12/02/2017 Irritable bowel syndrome Migraine, unspecified, without mention of intractable migraine without mention of status migrainosus Morbid obesity due to excess calories (HCC) 12/15/2015 Polyneuropathy in other diseases classified elsewhere ([facility]) Recurrent major depression in partial remission (HCC) 02/29/2020 Rheumatoid arthritis(714.0) Systemic lupus erythematosus arthritis (HCC) 03/18/2014 Unspecified asthma(493.90) Unspecified hypothyroidism Vitamin B 12 deficiency 11/22/2017 Vitamin D deficiency 09/16/2012 PAST SURGICAL HISTORY Procedure Laterality Date ARTHROSCOPY KNEE DIAGNOSTIC W/WO SYNOVIAL BX SPX Arthroscopy, knee CHOLECYSTECTOMY 1992 Cholecystectomy COLONOSCOPY 1999 ESOPHAGOGASTRODUODENOSCOPY TRANSORAL DIAGNOSTIC 1994 EGD HERNIA REPAIR 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 LAPS SUPRACRV HYSTERECT 250 GM/< RMVL TUBE/OVAR 08/09 endometriosis and ovarian cysts (EDIT 03/2015 abdominal incision) PULMONARY FUNCTION TEST ALLERGIES Bactrim [Sulfamethoxazole-Trimethoprim], Benzamycin [Erythromycin-Benzoyl Peroxide], Elavil [Amitriptyline], Environmental [Other], Guiafen-Pse [Pseudoephedrine-Guaifenesin], Humira [Adalimumab], Lodine [Etodolac], Methotrexate, Neurontin [Gabapentin], Nsaids (Non-Steroidal Anti-Inflammatory Drug), Ultram [Tramadol Hcl], Vicodin [Hydrocodone-Acetaminophen], Voltaren [Diclofenac Sodium], and Zostrix-Hp [Capsaicin] MEDICATIONS DULoxetine (CYMBALTA) 60 mg capsule Take 1 capsule by mouth two times a day. gabapentin (NEURONTIN) 600 mg tablet Take 1 tablet by mouth three times a day for 60 days. topiramate (TOPAMAX) 100 mg tablet Take 2 tablets by mouth two times a day. traZODone (DESYREL) 150 mg tablet Take 1 tablet by mouth daily at bedtime. ondansetron orally disintegrating (ZOFRAN ODT) 4 mg disintegrating tablet Take 1 tablet by mouth every 8 hours as needed for nausea/vomiting. levothyroxine (LEVOXYL) 88 mcg tablet Take 1 tablet by mouth once daily. Take on empty stomach. For Thyroid calcium carbonate 600 mg-cholecalciferol 200 units (CALCIUM 600 + D,3,) 600 mg-5 mcg (200 unit) tab Take 1 tablet by mouth two times a day. cyanocobalamin 1,000 mcg/mL Inject 1 mL subcutaneously once every month. Syringe with Needle, Disp, (MONOJECT SAFETY SYRINGES) syrg 1 Each once every month. 1 ml, 25 gauge 1/2 Zinc Sulfate 50 mg zinc (220 mg) tab Take 1 tablet by mouth once daily. cholecalciferol (VITAMIN D3) 5,000 unit tab Take 1 tablet by mouth once daily. ferrous sulfate 325 mg (65 mg iron) tablet Take 1 tablet by mouth daily with breakfast. tiZANidine (ZANAFLEX) 4 mg tablet Take 2 tablets by mouth every 6 hours as needed (muscle spasms). simethicone, chewable (MYLICON) 80 mg chewable tablet Take 1 tablet by mouth three times daily as needed. busPIRone (BUSPAR) 10 mg tablet Take 1 tablet by mouth three times daily. naloxone 4 mg/actuation nasal spray (NARCAN) Use 1 spray in one nostril as needed for overdose. May repeat every 2 to 3 min in alternating nostrils until medical assistance is available naloxone (NARCAN) 4 mg/actuation nasal spray 1 [place] by nasal (alternating) route as directed for 1 dose. 1 spray into 1 nostril. Additional doses may be given every 2-3 minutes until emergency arrives. fluticasone (FLONASE) 50 mcg/actuation nasal spray Use 2 Sprays in each nostril once daily. Rinse mouth after use. albuterol HFA (PROVENTIL HFA, VENTOLIN HFA) 90 mcg/actuation inhaler Inhale 2 Puffs as instructed every 4 hours as needed for Wheezing/Shortness of Breath. blood sugar diagnostic (ONETOUCH ULTRA TEST) test strip test once/day. DX 250.00 no insulin Blood-Glucose Meter (ONETOUCH ULTRA SYSTEM KIT) monitoring kit test one time daily dx 250.00 no insulin FAMILY HISTORY Problem Relation Age of Onset Asthma Mother COPD Mother Arthritis Mother rheumatoid arthritis other (Circulation) Father Emphysema Maternal Grandmother Heart Maternal Grandmother Hypertension Maternal Grandfather Diabetes Maternal Grandfather Arthritis Maternal Uncle rheumatoid arthritis Social History Tobacco Use Smoking status: Never Smokeless tobacco: Never Vaping Use Vaping Use: Never used Substance Use Topics Alcohol use: No Drug use: No ASSESSMENT/PLAN: 1. Nausea - ICD9: 787.02, ICD10: R11.0 (primary diagnosis) - ONDANSETRON 4 MG DISINTEGRATING TABLET - previously tolerated. 2. URI, acute - ICD9: 465.9, ICD10: J06.9 - COVID & INFLUENZA A/B & RSV NAAT, ROUTINE Prescription instructions reviewed with patient as applicable. Potential red flag symptoms discussed with the patient. Reviewed appropriate action plan to take if red flag symptoms occur. Patient agreeable to treatment plan. Erna Kelley APRN.PRESLEY documented in this encounter [facility] 08-05-2023 Note Patient Outreach (SUPRIYA TNAV) SIGIFREDOPAULINA Shen ([id number]) 1965 F NFR Date Time Provider Department 08/05/23 SHAKIRA MATTSON NETSTEPHENV During your visit today, we recorded the following information about you: Shakira Mattson MA 08/05/2023 1:27 PM Signed POPULATION HEALTH NAVIGATION OUTREACH Action/FYI Spoke to Paulina. Patient will call back to schedule ANNUAL MEDICARE WELLNESS Colorectal Cancer Screening Never done Mammogram Screening due on 01/21/2015 Influenza Vaccine(1) due on 05/03/2023 Patient Identified by Name and : YES, via phone Outreach Outcome/Action Spoke to patient / parent / legal guardian: Busy. Will call back later to schedule or asks for a callback Did you use a PCP flex slot to schedule this appointment? N/A Reason for Outreach Care Gap or Scheduling/Wellness visits Payer: Payor: MEDICARE / Plan: MEDICARE A AND B / Product Type: Medicare / Care Gap Reviewed:: Annual Wellness visit Breast Cancer screening Colorectal Cancer Screening Flu Vaccine Reminder: Reminder note to check Health Maintenance for items below Health Maintenance items due: Covid-19 Vaccine(1) Never done Spirometry Never done HIV Screening Never done DTaP,Tdap,Td Vaccine(2 - Tdap) due on 01/11/2009 Colorectal Cancer Screening Never done Hepatitis B Vaccine(2 of 3 - 19+ 3-dose series) due on 08/26/2012 Mammogram Screening due on 01/21/2015 Shingrix Vaccine(1 of 2) Never done Influenza Vaccine(1) due on 05/03/2023 Navigation Signature: Shakira Mattson MA August 05, 2023 8:51 AM Allergies As of Date: 08/05/2023 Noted Allergy Reaction BACTRIM (SULFAMETHOXAZOLE-TRIMETH*2004 8 - GI Upset Comments: diarrhea BENZAMYCIN (ERYTHROMYCIN-BENZOYL *08/01/2005 5 - Intolerance Comments: Gastric upset ELAVIL (AMITRIPTYLINE) 12/18/2019 8 - GI Upset Comments: nausea environmental [Other] 08/19/2007 Comments: cats GUIAFEN-PSE (PSEUDOEPHEDRINE-GUAI*04/14/2011 6 - Diarrhea HUMIRA (ADALIMUMAB) 04/07/2013 2 - Rash Comments: hair loss LODINE (ETODOLAC) 10/11/2005 8 - GI Upset METHOTREXATE 04/05/2014 14 - Other: See Comments Comments: SANDY NEURONTIN (GABAPENTIN) 08/01/2005 NSAIDS (NON-STEROIDAL ANTI-INFLAM*07/06/2019 14 - Other: See Comments Comments: high risk of peptic ulcer disease (s/p gastric bypass) ULTRAM (TRAMADOL HCL) 08/01/2005 6 - Diarrhea VICODIN (HYDROCODONE-ACETAMINOPHE*2004 1 - Mental Status Change VOLTAREN (DICLOFENAC SODIUM) 08/29/2005 Comments: sedation ZOSTRIX-HP (CAPSAICIN) 08/23/2005 Date Reviewed: 06/04/2023 Reviewed by: Rahul Andre LPN - Fully Assessed Reason for Visit: Population Health Navigation Outreach [[id number]] Cmt: ACO CARE GAPS Prescriptions as of 08/05/2023 - traZODone (DESYREL) 150 mg tablet Take 1 tablet by mouth daily at bedtime. - ondansetron orally disintegrating (ZOFRAN ODT) 4 mg disintegrating tablet Take 1 tablet by mouth every 8 hours as needed for nausea/vomiting. - levothyroxine (LEVOXYL) 88 mcg tablet Take 1 tablet by mouth once daily. Take on empty stomach. For Thyroid - calcium carbonate 600 mg-cholecalciferol 200 units (CALCIUM 600 + D,3,) 600 mg-5 mcg (200 unit) tab Take 1 tablet by mouth two times a day. - cyanocobalamin 1,000 mcg/mL Inject 1 mL subcutaneously once every month. - Syringe with Needle, Disp, (MONOJECT SAFETY SYRINGES) syrg 1 Each once every month. 1 ml, 25 gauge 1/2 - Zinc Sulfate 50 mg zinc (220 mg) tab Take 1 tablet by mouth once daily. - gabapentin (NEURONTIN) 600 mg tablet Take 1 tablet by mouth three times daily for 60 days. - DULoxetine (CYMBALTA) 60 mg capsule Take 1 capsule by mouth twice daily. - topiramate (TOPAMAX) 100 mg tablet Take 2 tablets by mouth twice daily. - cholecalciferol (VITAMIN D3) 5,000 unit tab Take 1 tablet by mouth once daily. - ferrous sulfate 325 mg (65 mg iron) tablet Take 1 tablet by mouth daily with breakfast. - tiZANidine (ZANAFLEX) 4 mg tablet Take 2 tablets by mouth every 6 hours as needed (muscle spasms). - simethicone, chewable (MYLICON) 80 mg chewable tablet Take 1 tablet by mouth three times daily as needed. - busPIRone (BUSPAR) 10 mg tablet Take 1 tablet by mouth three times daily. - naloxone 4 mg/actuation nasal spray (NARCAN) Use 1 spray in one nostril as needed for overdose. May repeat every 2 to 3 min in alternating nostrils until medical assistance is available - naloxone (NARCAN) 4 mg/actuation nasal spray 1 [place] by nasal (alternating) route as directed for 1 dose. 1 spray into 1 nostril. Additional doses may be given every 2-3 minutes until emergency arrives. - fluticasone (FLONASE) 50 mcg/actuation nasal spray Use 2 Sprays in each nostril once daily. Rinse mouth after use. - albuterol HFA (PROVENTIL HFA, VENTOLIN HFA) 90 mcg/actuation inhaler Inhale 2 Puffs as instructed every 4 hours as needed for Wheezing/Shortness (more content not included)... [facility] 08-05-2023 Note HNO ID: [id number] Author: Shakira Mattson MA Service: ? Author Type: Production Control Coordinator Type: Progress Notes Filed: 08/05/2023 1:27 PM Note Text: POPULATION HEALTH NAVIGATION OUTREACH Action/FYI Spoke to Paulina. Patient will call back to schedule ANNUAL MEDICARE WELLNESS Colorectal Cancer Screening Never done Mammogram Screening due on 01/21/2015 Influenza Vaccine(1) due on 05/03/2023 Patient Identified by Name and : YES, via phone Outreach Outcome/Action Spoke to patient / parent / legal guardian: Busy. Will call back later to schedule or asks for a callback Did you use a PCP flex slot to schedule this appointment? N/A Reason for Outreach Care Gap or Scheduling/Wellness visits Payer: Payor: MEDICARE / Plan: MEDICARE A AND B / Product Type: Medicare / Care Gap Reviewed:: Annual Wellness visit Breast Cancer screening Colorectal Cancer Screening Flu Vaccine Reminder: Reminder note to check Health Maintenance for items below Health Maintenance items due: Covid-19 Vaccine(1) Never done Spirometry Never done HIV Screening Never done DTaP,Tdap,Td Vaccine(2 - Tdap) due on 01/11/2009 Colorectal Cancer Screening Never done Hepatitis B Vaccine(2 of 3 - 19+ 3-dose series) due on 08/26/2012 Mammogram Screening due on 01/21/2015 Shingrix Vaccine(1 of 2) Never done Influenza Vaccine(1) due on 05/03/2023 Navigation Signature: Shakira Mattson MA August 05, 2023 8:51 AM [facility] 08-05-2023 History of Presen t illness Narrative POPULATION HEALTH NAVIGATION OUTREACH Action/FYI Spoke to Paulina. Patient will call back to schedule ANNUAL MEDICARE WELLNESS Colorectal Cancer Screening Never done Mammogram Screening due on 01/21/2015 Influenza Vaccine(1) due on 05/03/2023 Patient Identified by Name and : YES, via phone Outreach Outcome/Action Spoke to patient / parent / legal guardian: Busy. Will call back later to schedule or asks for a callback Did you use a PCP flex slot to schedule this appointment? N/A Reason for Outreach Care Gap or Scheduling/Wellness visits Payer: Payor: MEDICARE / Plan: MEDICARE A AND B / Product Type: Medicare / Care Gap Reviewed:: Annual Wellness visit Breast Cancer screening Colorectal Cancer Screening Flu Vaccine Reminder: Reminder note to check Health Maintenance for items below Health Maintenance items due: Covid-19 Vaccine(1) Never done Spirometry Never done HIV Screening Never done DTaP,Tdap,Td Vaccine(2 - Tdap) due on 01/11/2009 Colorectal Cancer Screening Never done Hepatitis B Vaccine(2 of 3 - 19+ 3-dose series) due on 08/26/2012 Mammogram Screening due on 01/21/2015 Shingrix Vaccine(1 of 2) Never done Influenza Vaccine(1) due on 05/03/2023 Navigation Signature: Shakira Mattson MA August 05, 2023 8:51 AM documented in this encounter [facility] 07-27-2023 Miscellaneous Notes OK to refill as ordered Miller Stafford MD Patient has been identified by name and date of : Yes Last office visit in this department: 06/04/2023 RX INSTRUCTIONS: Patient aware RX will be sent to pharmacy. No need to notify patient. Patient phones requesting refills as follows: Patient out of medication Requested Prescriptions Pending Prescriptions Disp Refills traZODone (DESYREL) 150 mg tablet 90 tablet 0 Sig: Take 1 tablet by mouth daily at bedtime. Please review and advise. Holly Caraballo documented in this encounter [facility] 07-23-2023 Miscellaneous Notes Notified patient. Patient says Thankyou to provider. Script sent. Marsha Macias APRN.SUPERVISOR INSTRUMENT MAINTENANCE Patient calling she had diarrhea start on Saturday and Saturday night she started vomiting. Patient said the diarrhea is gone, she has emesis at times. Patient is asking for rx medication for nausea, vomiting. She is eating brat diet and if she eats to much she has emesis. Patient has no ride to come in for appt or to go to ER, she did COVID test was negative. Patient uses [facility] for her pharmacy. Please advise documented in this encounter [facility] 07-08-2023 Miscellaneous Notes Pt notified. She verbalized understanding. She states she will call today to schedule an appt with oral surgeon. Rahul Andre Unfortunately, they are likely permanent. If they worsen, it can increase the risk of a stroke. Spoke with patient and her sister. Relayed message. They verbalized understanding and had a couple more questions. Can these mild microvascular changes be reversed or are they permanent? Is she now at higher risk for stroke with these changes? Linnette Ferrara It can be related to age related changes, or chronic elevated blood pressure, high cholesterol, etc. So it is important to just keep all of these controlled to prevent any worsening. Likely does not need an antibiotic at this time, but does need to see an oral surgeon for further evaluation. Patient calls and notified of results and providers instructions. Patient verbalizes understanding. Transferred to schedule consult to oral surgeon. Patient asking what the cause of her microvascular changes are. Patient asking provider specifically if the cause is high BP because she doesn't really have high BP. Patient also asking if she should be on an antibiotic. Juanita Vizcaino RN Phone call to pt, no answer, unable to leave message d/t voicemail box is full. Rahul Andre Can please let patient know that I received her MRI results. Her brain showed some mild microvascular changes. (Changes in the small blood vessels). It is important to maintain good control of blood pressure and cholesterol to prevent worsening. It also looked like some degeneration of the jaw bone and question is a problem with the blood supply to the jaw bones. We will need her to see an oral surgeon QUINTIN. In the meantime she should stop the fosamax (alendronate). If she develops any s/s of infection (fever/worsening pain, etc) she should proceed to the ER. Please help facilitate scheduling with oral surgery. Marsha Macias APRN.SUPERVISOR INSTRUMENT MAINTENANCE documented in this encounter [facility] 07-04-2023 Note HNO ID: [id number] Author: Emy Santoyo RT(Augusto) Service: ? Author Type: Technologist Type: Progress Notes Filed: 07/04/2023 3:11 PM Note Text: Radiology Service Progress Note PATIENT NAME: Paulina Mei DATE OF SERVICE: July 04, 2023 TIME: 3:11 PM PATIENT IDENTITY VERIFICATION COMPLETED USING TWO (2) IDENTIFIERS: Name and Date of confirmed by patient verbally. FALL SCREENING: Has the patient had 2 falls in the last year or 1 fall with injury or currently using an Ambulatory Assistive Device (Walker, Cane, Wheelchair, Crutches, etc.)? Yes, Patient High Risk for Falls What interventions were put in place to prevent falls during this visit? Instructed Patient to Call for Help if Needed, Offered Assistance with Transfers/Clothing, Instructed Patient to Remain Seated (Not on Exam Table) Until Exam, and Increased Observations by Caregivers PATIENT GENDER DATA: Female. status: : No status: NO. PATIENT RELEVANT IMPLANT DATA REVIEWED: Yes RADIOLOGY DEPARTMENT: MR; Exam(s) Completed: Head: Routine Brain PERIPHERAL IV DATA: Not applicable SIGNED BY: RT Priyank(R) July 04, 2023 3:11 PM [facility] 07-04-2023 History of Presen t illness Narrative Radiology Service Progress Note PATIENT NAME: Paulina Mei DATE OF SERVICE: July 04, 2023 TIME: 3:11 PM PATIENT IDENTITY VERIFICATION COMPLETED USING TWO (2) IDENTIFIERS: Name and Date of confirmed by patient verbally. FALL SCREENING: Has the patient had 2 falls in the last year or 1 fall with injury or currently using an Ambulatory Assistive Device (Walker, Cane, Wheelchair, Crutches, etc.)? Yes, Patient High Risk for Falls What interventions were put in place to prevent falls during this visit? Instructed Patient to Call for Help if Needed, Offered Assistance with Transfers/Clothing, Instructed Patient to Remain Seated (Not on Exam Table) Until Exam, and Increased Observations by Caregivers PATIENT GENDER DATA: Female. status: : No status: NO. PATIENT RELEVANT IMPLANT DATA REVIEWED: Yes RADIOLOGY DEPARTMENT: MR; Exam(s) Completed: Head: Routine Brain PERIPHERAL IV DATA: Not applicable SIGNED BY: RT Priyank(R) July 04, 2023 3:11 PM documented in this encounter [facility] 06-14-2023 Miscellaneous Notes Pt advised of Marsha's message and instructions. Pt verbalizes understanding. Pt reports that she will go to [facility] ER. Yamile Michael LPN She was seen last week and was having problems with confusion, forgetfulness, and seeing some things (ie the wall's breathing), and some headaches at that time. We are waiting to get some imaging of her head. Because of the other symptoms that she was having and worsening of the headache, I would recommend that she be evaluated int he ER where she get a scan of her head. Marsha Macias APRN.PRESLEY Patient calling has had migraine for past 3 days and she can not get rid of it. She has not had one for many years, she has been taking her topamax. Patient said she is having blurred vision, light sensitivity, pain in her neck. Patient has not had migraine medication for long time back with Dr F Cebul. Patient uses [facility] for her pharmacy. Patient is asking for rx to help get rid of the headache, she thinks from the weather change. Please advise documented in this encounter [facility] 06-12-2023 Miscellaneous Notes Pt notified. She verbalized understanding. Rahul Andre LPN Scripts sent. Her last potassium was normal, so if she has not been taking the potassium, then I would stay off of that for now. Marsha Macias APRN.SUPERVISOR INSTRUMENT MAINTENANCE Call to patient and she states that she isn't taking any of these medications. Advised her that is it important to know if she is taking these or not before filling. Especially potassium. Patient states that not taking potassium. Pt calling for refills on the below meds. Also wondered if she is to take the Potassium Chloride ER 20 mEq. She will need that added as well. Patient has been identified by name and date of : Yes Last office visit in this department: 06/04/2023 RX INSTRUCTIONS: Patient aware RX will be sent to pharmacy. No need to notify patient. Patient phones requesting refills as follows: Requested Prescriptions Pending Prescriptions Disp Refills levothyroxine (LEVOXYL) 88 mcg tablet 30 tablet 2 Sig: Take 1 tablet by mouth once daily. Take on empty stomach. For Thyroid calcium carbonate 600 mg-cholecalciferol 200 units (CALCIUM 600 + D,3,) 600 mg-5 mcg (200 unit) tab 60 tablet 2 Sig: Take 1 tablet by mouth two times a day. Please review and advise. Alicja Gan documented in this encounter [facility] 06-07-2023 Miscellaneous Notes Phoned patient and aware rx were sent to the pharmacy. Scripts sent. Marsha Macias APRN.PRESLEY Patient notified of provider's message below. Patient states she would like to self-administer the B12 injections at home. States she has done this before and feels comfortable restarting these. This nurse did offer a visit with our injection nurse to review administration of medication, and patient politely declined. Pt uses [facility]. Please call patient once script has been sent please. [phone] Thank you. TC to Pt. Unable to LM due to the mailbox is full. Will try again later. Ingris Abraham LPN Can please let patient know that I received her lab results. Her vitamin D is low. Has she been taking the 5000 units of vitamin D daily? Please encourage her to be more consistent taking her thyroid medication, as previously discussed. Her zinc was still a little low. I sent a new script to the pharmacy. Please make sure she takes daily. Her b12 was low. This could be causing some memory problems. Lets have her start B12 injections. I put the order in. Please help schedule. Please recheck labs in 2 months. The orders are in. Marsha Macias APRN.PRESLEY documented in this encounter [facility] 06-04-2023 Note HNO ID: [id number] Author: Marsha Macias APRN.SUPERVISOR INSTRUMENT MAINTENANCE Service: ? Author Type: Nurse Practitioner Type: Progress Notes Filed: 06/04/2023 8:04 PM Note Text: This is a 57 year old female who presents today with: Patient presents with: Acute Visit: Confusion/forgetfullness x couple weeks HISTORY OF PRESENT ILLNESS: Paulina Mei is a 57 year old female. Patient presents with: Acute Visit: Confusion/forgetfullness x couple weeks Pt presents today with her sister. Refers that she has been having problems with memory. Thinks that she went places she hasn't. Will have very vivid recollection of going places with her sister (what the buildings/houses looked like and the people around). However, in reality, patient hasn't gone anywhere. Sister states Paulina will wake up and say where'd we go. Paulina sometimes she can't find her sister when she had gone to work (will look for her throughout the home). One day when out, when Paulina was waiting in the care, noticed that it looked like the yates were breathing. Hasn't had anything like this in the past. Seems to have started after a recent lupus flare. Started about 2 weeks ago. Sister reports that she notices that symptoms are worse after she takes her medications. Will get headaches. Hx of migraines, but these headaches are different. Usually on the top of the head. I've never had headaches like this before. Can last a few hours or all day. Refers will get sensitive to light/sound. No nausea with the headaches. Its been a long time since she has had a migraine. Admits that she frequently forgets thyroid medication. Denies any urinary symptoms. Denies any recent sickness. She also had a toenail fall off recently. Right great toe. Had some green drainage. Reports it is healing now. Had seen podiatry in the past and they wanted to do an amputation, so she did not return. PAST MEDICAL HISTORY: PAST MEDICAL HISTORY Diagnosis Date Anemia 08/14/2017 Chronic insomnia 09/09/2017 Depression 11/17/2012 Elevated liver function tests 05/22/2012 Fibromyalgia Hyperlipidemia LDL goal < 100 06/26/2010 Hypoglycemia after GI (gastrointestinal) surgery 04/30/2014 Iron deficiency anemia, unspecified Iron malabsorption 12/02/2017 Irritable bowel syndrome Migraine, unspecified, without mention of intractable migraine without mention of status migrainosus Morbid obesity due to excess calories ([facility]) 12/15/2015 Polyneuropathy in other diseases classified elsewhere ([facility]) Recurrent major depression in partial remission ([facility]) 02/29/2020 Rheumatoid arthritis(714.0) Systemic lupus erythematosus arthritis ([facility]) 03/18/2014 Unspecified asthma(493.90) Unspecified hypothyroidism Vitamin B 12 deficiency 11/22/2017 Vitamin D deficiency 09/16/2012 PAST SURGICAL HISTORY Procedure Laterality Date ARTHROSCOPY KNEE DIAGNOSTIC W/WO SYNOVIAL BX SPX Arthroscopy, knee CHOLECYSTECTOMY 1992 Cholecystectomy COLONOSCOPY 1999 ESOPHAGOGASTRODUODENOSCOPY TRANSORAL DIAGNOSTIC 1994 EGD HERNIA REPAIR 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 LAPS SUPRACRV HYSTERECT 250 GM/< RMVL TUBE/OVAR 08/09 endometriosis and ovarian cysts (EDIT 03/2015 abdominal incision) PULMONARY FUNCTION TEST ALLERGIES Bactrim [Sulfamethoxazole-Trimethoprim], Benzamycin [Erythromycin-Benzoyl Peroxide], Elavil [Amitriptyline], Environmental [Other], Guiafen-Pse [Pseudoephedrine-Guaifenesin], Humira [Adalimumab], Lodine [Etodolac], Methotrexate, Neurontin [Gabapentin], Nsaids (Non-Steroidal Anti-Inflammatory Drug), Ultram [Tramadol Hcl], Vicodin [Hydrocodone-Acetaminophen], Voltaren [Diclofenac Sodium], and Zostrix-Hp [Capsaicin] MEDICATIONS Current Outpatient Medications Medication Sig gabapentin (NEURONTIN) 600 mg tablet Take 1 tablet by mouth three times daily for 60 days. DULoxetine (CYMBALTA) 60 mg capsule Take 1 capsule by mouth twice daily. traZODone (DESYREL) 150 mg tablet Take 1 tablet by mouth daily at bedtime. topiramate (TOPAMAX) 100 mg tablet Take 2 tablets by mouth twice daily. Zinc Sulfate 50 mg zinc (220 mg) tab Take 0.2273 tablets by mouth once daily. cholecalciferol (VITAMIN D3) 5,000 unit tab Take 1 tablet by mouth once daily. ferrous sulfate 325 mg (65 mg iron) tablet Take 1 tablet by mouth daily with breakfast. tiZANidine (ZANAFLEX) 4 mg tablet Take 2 tablets by mouth every 6 hours as needed (muscle spasms). simethicone, chewable (MYLICON) 80 mg chewable tablet Take 1 tablet by mouth three times daily as needed. levothyroxine (LEVOXYL) 88 mcg tablet Take 1 tablet by mouth once daily. Take on empty stomach. For Thyroid potassium chloride ER (K-DUR, KLOR-CON) 20 mEq tablet Take 1 tablet by mouth three times daily. busPIRone (BUSPAR) 10 mg tablet Take 1 tablet by mouth three times daily. naloxone 4 mg/actuation nasal spray (NARCAN) Use 1 spray in one nostril as needed for overdose. May repeat every (more content not included)... [facility] 04-12-2023 Miscellaneous Notes The following approved medication requests have been transmitted electronically. Requested Prescriptions Signed Prescriptions Disp Refills traZODone (DESYREL) 150 mg tablet 90 tablet 0 Sig: Take 1 tablet by mouth daily at bedtime. Authorizing Provider: Jocelyn WOLFF PA-C Last filled 11/08/22, #90, 1 refill GE 02/06/23 NOV 06/21/23 Patient has been identified by name and date of : Yes Last office visit in this department: 02/06/2023 RX INSTRUCTIONS: Patient aware RX will be sent to pharmacy. No need to notify patient. Patient phones requesting refills as follows: Requested Prescriptions Pending Prescriptions Disp Refills traZODone (DESYREL) 150 mg tablet 90 tablet 1 Sig: Take 1 tablet by mouth daily at bedtime. Please review and advise. Rosi Caal documented in this encounter [facility] 04-10-2023 Note Patient Outreach (IN TMMN) PAULINA MEI ([id number]) 1965 F NFR Date Time Provider Department 04/10/23 Jocelyn WOLFF During your visit today, we recorded the following information about you: Allergies As of Date: 04/10/2023 Noted Allergy Reaction BACTRIM (SULFAMETHOXAZOLE-TRIMETH*2004 8 - GI Upset Comments: diarrhea BENZAMYCIN (ERYTHROMYCIN-BENZOYL *08/01/2005 5 - Intolerance Comments: Gastric upset ELAVIL (AMITRIPTYLINE) 12/18/2019 8 - GI Upset Comments: nausea environmental [Other] 08/19/2007 Comments: cats GUIAFEN-PSE (PSEUDOEPHEDRINE-GUAI*04/14/2011 6 - Diarrhea HUMIRA (ADALIMUMAB) 04/07/2013 2 - Rash Comments: hair loss LODINE (ETODOLAC) 10/11/2005 8 - GI Upset METHOTREXATE 04/05/2014 14 - Other: See Comments Comments: SANDY NEURONTIN (GABAPENTIN) 08/01/2005 NSAIDS (NON-STEROIDAL ANTI-INFLAM*07/06/2019 14 - Other: See Comments Comments: high risk of peptic ulcer disease (s/p gastric bypass) ULTRAM (TRAMADOL HCL) 08/01/2005 6 - Diarrhea VICODIN (HYDROCODONE-ACETAMINOPHE*2004 1 - Mental Status Change VOLTAREN (DICLOFENAC SODIUM) 08/29/2005 Comments: sedation ZOSTRIX-HP (CAPSAICIN) 08/23/2005 Date Reviewed: 02/06/2023 Reviewed by: Rahul Andre LPN - Fully Assessed Visit Diagnosis:Encounter for screening mammogram for breast cancer [Z12.31] Order(s):[facility] SCREENING [[id number]] Order #: [id number] FUTURE Prescriptions as of 04/15/2023 - traZODone (DESYREL) 150 mg tablet Take 1 tablet by mouth daily at bedtime. - topiramate (TOPAMAX) 100 mg tablet Take 2 tablets by mouth twice daily. - Zinc Sulfate 50 mg zinc (220 mg) tab Take 0.2273 tablets by mouth once daily. - cholecalciferol (VITAMIN D3) 5,000 unit tab Take 1 tablet by mouth once daily. - ferrous sulfate 325 mg (65 mg iron) tablet Take 1 tablet by mouth daily with breakfast. - tiZANidine (ZANAFLEX) 4 mg tablet Take 2 tablets by mouth every 6 hours as needed (muscle spasms). - simethicone, chewable (MYLICON) 80 mg chewable tablet Take 1 tablet by mouth three times daily as needed. - DULoxetine (CYMBALTA) 60 mg capsule Take 1 capsule by mouth twice daily. - gabapentin (NEURONTIN) 600 mg tablet Take 1 tablet by mouth three times daily for 90 days. - levothyroxine (LEVOXYL) 88 mcg tablet Take 1 tablet by mouth once daily. Take on empty stomach. For Thyroid - potassium chloride ER (K-DUR, KLOR-CON) 20 mEq tablet Take 1 tablet by mouth three times daily. - busPIRone (BUSPAR) 10 mg tablet Take 1 tablet by mouth three times daily. - naloxone 4 mg/actuation nasal spray (NARCAN) Use 1 spray in one nostril as needed for overdose. May repeat every 2 to 3 min in alternating nostrils until medical assistance is available - Zinc 50 mg tab Take 1 tablet by mouth once daily. - alendronate (FOSAMAX) 70 mg tablet Take 1 tablet by mouth one time a week. Take with a full glass of water, on an empty stomach; do NOT lie down for 30minutes. - calcium carbonate 600 mg-cholecalciferol 200 units (CALCIUM 600 + D,3,) 600 mg(1,500mg) -200 unit tab Take 1 tablet by mouth twice daily. - naloxone (NARCAN) 4 mg/actuation nasal spray 1 [place] by nasal (alternating) route as directed for 1 dose. 1 spray into 1 nostril. Additional doses may be given every 2-3 minutes until emergency arrives. - fluticasone (FLONASE) 50 mcg/actuation nasal spray Use 2 Sprays in each nostril once daily. Rinse mouth after use. - albuterol HFA (PROVENTIL HFA, VENTOLIN HFA) 90 mcg/actuation inhaler Inhale 2 Puffs as instructed every 4 hours as needed for Wheezing/Shortness of Breath. - blood sugar diagnostic ([employer] ULTRA TEST) test strip test once/day. DX 250.00 no insulin - Blood-Glucose Meter (ONETOUCH ULTRA SYSTEM KIT) monitoring kit test one time daily dx 250.00 no insulin Meds Comments as of 04/14/2013: Problem List As Of Date 04/10/2023 Noted Resolved IRRITABLE COLON [K58.9] Hypothyroidism [E03.9] Disorders of bursae and tendons in shoulder reg*12/02/2006 09/29/2015 Plantar fascial fibromatosis [M72.2] 10/13/2008 09/29/2015 Photosensitivity Disorder [L56.8] 10/10/2009 Iron deficiency anemia [D50.9] 01/10/2010 06/19/2018 Diabetes Mellitus [E11.9] 04/20/2010 10/14/2014 Hyperlipidemia with target LDL less than 100 [E*06/26/2010 Vitamin d deficiency [E55.9] 09/16/2012 Fibromyalgia [M79.7] 12/05/2012 Rheumatoid arthritis involving multiple sites (*02/11/2013 Abdominal pain, unspecified site [R10.9] 04/14/2013 09/29/2015 Pubic bone pain [M89.9] 04/14/2013 09/29/2015 Incisional hernia [K43.2] 04/06/2014 10/22/2020 Hypoglycemia after GI (gastrointestinal) surger*04/30/2014 09/29/2015 Chronic migraine without aura without status mi*09/29/2015 Mild intermittent asthma without complication [*09/29/2015 Insomnia secondary to anxiety [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 [facility] 03-21-2023 Note HNO ID: [id number] Author: Kenzie Herrera MA Service: ? Author Type: Production Control Coordinator Type: Progress Notes Filed: 03/21/2023 3:36 PM Note Text: POPULATION HEALTH NAVIGATION OUTREACH Action/I March 21, 2023 3:32 PM HCC Gaps M06.9 - Rheumatoid arthritis involving multiple sites (HCC) - [id number] Last Billed 07/03/2022 F33.41 - Recurrent major depression in partial remission (HCC) - [id number] Last Billed 07/03/2022 GE with PCP team was February 06, 2023 with Marsha Macias CNP for Acute visit Care Gaps due/ACO: ~Colorectal Cancer Screening Outcome: Spoke with patient. She has been scheduled for her Annual Medicare Wellness with RICHELLE Maria on June 21, 2023 She will discuss CRCS at this appointment Patient Identified by Name and : YES, via phone Outreach Outcome/Action Spoke to patient / parent / legal guardian: Patient scheduled Did you use a PCP flex slot to schedule this appointment? No Reason for Outreach HCC or suspected condition Payer: Payor: MEDICARE / Plan: MEDICARE A AND B / Product Type: Medicare / Care Gap Reviewed:: Annual Wellness visit Colorectal Cancer Screening Reminder: Reminder note to check Health Maintenance for items below Health Maintenance items due: COVID-19 VACCINE(1) Never done SPIROMETRY Never done HIV SCREENING Never done DTAP,TDAP,TD(2 - Tdap) due on 01/11/2009 COLORECTAL CANCER SCREENING Never done HEPATITIS B(2 of 3 - 19+ 3-dose series) due on 08/26/2012 MAMMOGRAM due on 01/21/2015 SHINGRIX VACCINE(1 of 2) Never done Navigation Signature: Kenzie Herrera MA March 21, 2023 3:32 PM [facility] 03-21-2023 Note Patient Outreach (SUPRIYA TNAV) PAULINA MEI ([id number]) 1965 F NFR Date Time Provider Department 03/21/23 KENZIE HERRERA During your visit today, we recorded the following information about you: Kenzie Herrera MA 03/21/2023 3:36 PM Signed POPULATION HEALTH NAVIGATION OUTREACH Action/March 21, 2023 3:32 PM HCC Gaps M06.9 - Rheumatoid arthritis involving multiple sites (HCC) - [id number] Last Billed 07/03/2022 F33.41 - Recurrent major depression in partial remission (HCC) - [id number] Last Billed 07/03/2022 GE with PCP team was February 06, 2023 with Marsha Macias CNP for Acute visit Care Gaps due/ACO: ~Colorectal Cancer Screening Outcome: Spoke with patient. She has been scheduled for her Annual Medicare Wellness with RICHELLE Maria on June 21, 2023 She will discuss CRCS at this appointment Patient Identified by Name and : YES, via phone Outreach Outcome/Action Spoke to patient / parent / legal guardian: Patient scheduled Did you use a PCP flex slot to schedule this appointment? No Reason for Outreach HCC or suspected condition Payer: Payor: MEDICARE / Plan: MEDICARE A AND B / Product Type: Medicare / Care Gap Reviewed:: Annual Wellness visit Colorectal Cancer Screening Reminder: Reminder note to check Health Maintenance for items below Health Maintenance items due: COVID-19 VACCINE(1) Never done SPIROMETRY Never done HIV SCREENING Never done DTAP,TDAP,TD(2 - Tdap) due on 01/11/2009 COLORECTAL CANCER SCREENING Never done HEPATITIS B(2 of 3 - 19+ 3-dose series) due on 08/26/2012 MAMMOGRAM due on 01/21/2015 SHINGRIX VACCINE(1 of 2) Never done Navigation Signature: Kenzie Herrera MA March 21, 2023 3:32 PM Allergies As of Date: 03/21/2023 Noted Allergy Reaction BACTRIM (SULFAMETHOXAZOLE-TRIMETH*2004 8 - GI Upset Comments: diarrhea BENZAMYCIN (ERYTHROMYCIN-BENZOYL *08/01/2005 5 - Intolerance Comments: Gastric upset ELAVIL (AMITRIPTYLINE) 12/18/2019 8 - GI Upset Comments: nausea environmental [Other] 08/19/2007 Comments: cats GUIAFEN-PSE (PSEUDOEPHEDRINE-GUAI*04/14/2011 6 - Diarrhea HUMIRA (ADALIMUMAB) 04/07/2013 2 - Rash Comments: hair loss LODINE (ETODOLAC) 10/11/2005 8 - GI Upset METHOTREXATE 04/05/2014 14 - Other: See Comments Comments: SANDY NEURONTIN (GABAPENTIN) 08/01/2005 NSAIDS (NON-STEROIDAL ANTI-INFLAM*07/06/2019 14 - Other: See Comments Comments: high risk of peptic ulcer disease (s/p gastric bypass) ULTRAM (TRAMADOL HCL) 08/01/2005 6 - Diarrhea VICODIN (HYDROCODONE-ACETAMINOPHE*2004 1 - Mental Status Change VOLTAREN (DICLOFENAC SODIUM) 08/29/2005 Comments: sedation ZOSTRIX-HP (CAPSAICIN) 08/23/2005 Date Reviewed: 02/06/2023 Reviewed by: Rahul Andre LPN - Fully Assessed Reason for Visit: Population Health Navigation Outreach [3910] Cmt: ACO [facility] Prescriptions as of 03/21/2023 - topiramate (TOPAMAX) 100 mg tablet Take 2 tablets by mouth twice daily. - Zinc Sulfate 50 mg zinc (220 mg) tab Take 0.2273 tablets by mouth once daily. - cholecalciferol (VITAMIN D3) 5,000 unit tab Take 1 tablet by mouth once daily. - ferrous sulfate 325 mg (65 mg iron) tablet Take 1 tablet by mouth daily with breakfast. - tiZANidine (ZANAFLEX) 4 mg tablet Take 2 tablets by mouth every 6 hours as needed (muscle spasms). - traZODone (DESYREL) 150 mg tablet Take 1 tablet by mouth daily at bedtime. - simethicone, chewable (MYLICON) 80 mg chewable tablet Take 1 tablet by mouth three times daily as needed. - DULoxetine (CYMBALTA) 60 mg capsule Take 1 capsule by mouth twice daily. - gabapentin (NEURONTIN) 600 mg tablet Take 1 tablet by mouth three times daily for 90 days. - levothyroxine (LEVOXYL) 88 mcg tablet Take 1 tablet by mouth once daily. Take on empty stomach. For Thyroid - potassium chloride ER (K-DUR, KLOR-CON) 20 mEq tablet Take 1 tablet by mouth three times daily. - busPIRone (BUSPAR) 10 mg tablet Take 1 tablet by mouth three times daily. - naloxone 4 mg/actuation nasal spray (NARCAN) Use 1 spray in one nostril as needed for overdose. May repeat every 2 to 3 min in alternating nostrils until medical assistance is available - Zinc 50 mg tab Take 1 tablet by mouth once daily. - alendronate (FOSAMAX) 70 mg tablet Take 1 tablet by mouth one time a week. Take with a full glass of water, on an empty stomach; do NOT lie down for 30minutes. - calcium carbonate 600 mg-cholecalciferol 200 units (CALCIUM 600 + D,3,) 600 mg(1,500mg) -200 unit tab Take 1 tablet by mouth twice daily. - naloxone (NARCAN) 4 mg/actuation nasal spray 1 [place] by nasal (alternating) route as directed for 1 dose. 1 spray into 1 nostril. Additional doses may be given every 2-3 minutes until emergency arrives. - fluticasone (FLONASE) 50 mcg/actuation nasal spray Use 2 Sprays in each nostril once daily. Rinse mouth a (more content not included)... [facility] 03-12-2023 Miscellaneous Notes Called patient and scheduled her Saturday with Kapil. Patient was on wait list for the following - Acute pain of both knees [M25.561, M25.562] Patient had also stated she had a fx in her knee. documented in this encounter [facility] 03-01-2023 Miscellaneous Notes Pt. informed. Can please let patient know that I did hear back from ortho. The would like her to be non-weight bearing on the right leg until she is evaluated by them. Does she have a wheelchair or walker to use at home? documented in this encounter [facility] 02-25-2023 Miscellaneous Notes Patient notified and verbalized understanding. Sena Lopez MA Can please let patient know that we received her knee xray results. It does look like the arthritic changes have progressed/worsened. It also looks like there is a little corner fracture/avulsion fracture in the right knee. Please follow-up with ortho, as planned. I also forwarded the xray results to the provider she is scheduled to see. 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 SINCE THE PREVIOUS EXAMINATION THERE IS BEEN A SMALL INTRA-ARTICULAR CORNER FRACTURE INVOLVING THE LARGE CYST AT THE MEDIAL TIBIAL PLATEAU ON THE RIGHT. 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 ACTIONABLE RESULT: FOLLOW-UP Acuity: Findings: Recommendation: Time Frame: COMMUNICATION: Results will be communicated with the ordering provider via [facility] staff message or phone message by Imaging Support Services within 2 business days of report finalization. ==== Algorithms for management of incidental imaging findings can be found on the [facility] Intranet Sharepoint site at: [email or web address] [email or web address] Health Careers Instructor: HERMES Transcribe Date/Time: Feb 23 2023 11:53A Dictated by : MELONIE HILLMAN MD This examination was interpreted and the report reviewed and electronically signed by: MELONIE HILLMAN MD on Feb 23 2023 11:59AM [facility] OF RADIOLOGY 02-19-2023 Note HNO ID: [id number] Author: Holli Stanley RT(R) Service: Nuclear Medicine Author Type: Technologist Type: Progress Notes Filed: 02/19/2023 12:11 PM Note Text: Radiology Service Progress Note PATIENT NAME: Paulina Mei DATE OF SERVICE: February 19, 2023 TIME: 11:47 AM PATIENT IDENTITY VERIFICATION COMPLETED USING TWO (2) IDENTIFIERS: Name and Date of confirmed by patient verbally. FALL SCREENING: Has the patient had 2 falls in the last year or 1 fall with injury or currently using an Ambulatory Assistive Device (Walker, Cane, Wheelchair, Crutches, etc.)? Yes, Patient High Risk for Falls What interventions were put in place to prevent falls during this visit? Offered Assistance with Transfers/Clothing and did on table PATIENT GENDER DATA: Female. status: : No status: NO. PATIENT RELEVANT IMPLANT DATA REVIEWED: Not Applicable RADIOLOGY DEPARTMENT: General X-ray: Exam(s) Completed: Lower Extremity X-Ray(s): Knee, AP / Lat / Tunne / Merchant Bilateral PERIPHERAL IV DATA: Not applicable SIGNED BY: RT Yazmin(R) February 19, 2023 11:47 AM [facility] 02-19-2023 History of Presen t illness Narrative Radiology Service Progress Note PATIENT NAME: Paulina Mei DATE OF SERVICE: February 19, 2023 TIME: 11:47 AM PATIENT IDENTITY VERIFICATION COMPLETED USING TWO (2) IDENTIFIERS: Name and Date of confirmed by patient verbally. FALL SCREENING: Has the patient had 2 falls in the last year or 1 fall with injury or currently using an Ambulatory Assistive Device (Walker, Cane, Wheelchair, Crutches, etc.)? Yes, Patient High Risk for Falls What interventions were put in place to prevent falls during this visit? Offered Assistance with Transfers/Clothing and did on table PATIENT GENDER DATA: Female. status: : No status: NO. PATIENT RELEVANT IMPLANT DATA REVIEWED: Not Applicable RADIOLOGY DEPARTMENT: General X-ray: Exam(s) Completed: Lower Extremity X-Ray(s): Knee, AP / Lat / Tunne / Merchant Bilateral PERIPHERAL IV DATA: Not applicable SIGNED BY: RT Yazmin(R) February 19, 2023 11:47 AM documented in this encounter [facility] 02-13-2023 Miscellaneous Notes Spoke with patient and explained to her that prednisone is not something that she will continue to take. She was just requesting refill because she was almost out and it was really helping so she didn't want to run out. Advised her that this is what we wanted to happen. This is good that it is helping so much. Finish up the prednisone and keep ortho appt. Patient is requesting a refill for prednisone 10 mg sent to [facility] in [place]. Please advise, thank you. documented in this encounter [facility] 02-06-2023 Note HNO ID: [id number] Author: Marsha Macias APRN.SUPERVISOR INSTRUMENT MAINTENANCE Service: ? Author Type: Nurse Practitioner Type: Progress Notes Filed: 02/07/2023 2:55 PM Note Text: This is a 57 year old female who presents today with: Patient presents with: Knee Pain: Bilateral knee pain; L worse than R; no injury HISTORY OF PRESENT ILLNESS: Paulina Mei is a 57 year old female. Patient presents with: Knee Pain: Bilateral knee pain; L worse than R; no injury Pt presents today with complaint of bilateral knee pain. Has been going on for the last 1 1/2 - 2 months. Refers progressively worsening. Harder to walk and get around and do things. No injuries to the knees. No popping/cracking in the knees. Left will start to give out on her. Refers the pain never goes away. Pain is worse at night than during the day. Hx rheumatoid and osteoarthritis, as well as fibromyalgia. Currently she is followed with pain management. Taking percocet. Refers that the percocet hardly even touches the pain in her knees. Avoids nsaids d/t hx of gastric bypass. PAST MEDICAL HISTORY: PAST MEDICAL HISTORY Diagnosis Date Anemia 08/14/2017 Chronic insomnia 09/09/2017 Depression 11/17/2012 Elevated liver function tests 05/22/2012 Fibromyalgia Hyperlipidemia LDL goal < 100 06/26/2010 Hypoglycemia after GI (gastrointestinal) surgery 04/30/2014 Iron deficiency anemia, unspecified Iron malabsorption 12/02/2017 Irritable bowel syndrome Migraine, unspecified, without mention of intractable migraine without mention of status migrainosus Morbid obesity due to excess calories (HCC) 12/15/2015 Polyneuropathy in other diseases classified elsewhere (HCC) Recurrent major depression in partial remission ([facility]) 02/29/2020 Rheumatoid arthritis(714.0) Systemic lupus erythematosus arthritis (HCC) 03/18/2014 Unspecified asthma(493.90) Unspecified hypothyroidism Vitamin B 12 deficiency 11/22/2017 Vitamin D deficiency 09/16/2012 PAST SURGICAL HISTORY Procedure Laterality Date ARTHROSCOPY KNEE DIAGNOSTIC W/WO SYNOVIAL BX SPX Arthroscopy, knee CHOLECYSTECTOMY 1992 Cholecystectomy COLONOSCOPY 1999 ESOPHAGOGASTRODUODENOSCOPY TRANSORAL DIAGNOSTIC 1994 EGD HERNIA REPAIR 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 LAPS SUPRACRV HYSTERECT 250 GM/< RMVL TUBE/OVAR 08/09 endometriosis and ovarian cysts (EDIT 03/2015 abdominal incision) PULMONARY FUNCTION TEST ALLERGIES Bactrim [Sulfamethoxazole-Trimethoprim], Benzamycin [Erythromycin-Benzoyl Peroxide], Elavil [Amitriptyline], Environmental [Other], Guiafen-Pse [Pseudoephedrine-Guaifenesin], Humira [Adalimumab], Lodine [Etodolac], Methotrexate, Neurontin [Gabapentin], Nsaids (Non-Steroidal Anti-Inflammatory Drug), Ultram [Tramadol Hcl], Vicodin [Hydrocodone-Acetaminophen], Voltaren [Diclofenac Sodium], and Zostrix-Hp [Capsaicin] MEDICATIONS Current Outpatient Medications Medication Sig tiZANidine (ZANAFLEX) 4 mg tablet Take 2 tablets by mouth every 6 hours as needed (muscle spasms). traZODone (DESYREL) 150 mg tablet Take 1 tablet by mouth daily at bedtime. DULoxetine (CYMBALTA) 60 mg capsule Take 1 capsule by mouth twice daily. topiramate (TOPAMAX) 100 mg tablet Take 2 tablets by mouth twice daily. gabapentin (NEURONTIN) 600 mg tablet Take 1 tablet by mouth three times daily for 90 days. levothyroxine (LEVOXYL) 88 mcg tablet Take 1 tablet by mouth once daily. Take on empty stomach. For Thyroid albuterol HFA (PROVENTIL HFA, VENTOLIN HFA) 90 mcg/actuation inhaler Inhale 2 Puffs as instructed every 4 hours as needed for Wheezing/Shortness of Breath. simethicone, chewable (MYLICON) 80 mg chewable tablet Take 1 tablet by mouth three times daily as needed. potassium chloride ER (K-DUR, KLOR-CON) 20 mEq tablet Take 1 tablet by mouth three times daily. busPIRone (BUSPAR) 10 mg tablet Take 1 tablet by mouth three times daily. naloxone 4 mg/actuation nasal spray (NARCAN) Use 1 spray in one nostril as needed for overdose. May repeat every 2 to 3 min in alternating nostrils until medical assistance is available Zinc 50 mg tab Take 1 tablet by mouth once daily. alendronate (FOSAMAX) 70 mg tablet Take 1 tablet by mouth one time a week. Take with a full glass of water, on an empty stomach; do NOT lie down for 30minutes. calcium carbonate 600 mg-cholecalciferol 200 units (CALCIUM 600 + D,3,) 600 mg(1,500mg) -200 unit tab Take 1 tablet by mouth twice daily. cholecalciferol (VITAMIN D3) 5,000 unit tab Take 1 tablet by mouth once daily. naloxone (NARCAN) 4 mg/actuation nasal spray 1 [place] by nasal (alternating) route as directed for 1 dose. 1 spray into 1 nostril. Additional doses may be given every 2-3 minutes until emergency arrives. fluticasone (FLONASE) 50 mcg/actuation nasal spray Use 2 Sprays in each nostril once daily. Rinse mouth after use. blood sugar diagnostic (ONETOUCH ULTRA TEST) test strip test once/day. DX 250.00 no insulin Blood-Gluc (more content not included)... [facility] 02-06-2023 Instructions Marsha Macias APRN.CNP - 02/06/2023 4:30 PM EDT Start the prednisone tomorrow morning. The prednisone taper will be 4 tablets for 3 days; 3 tablets for 3 days; 2 tablets for 3 days; then 1 tablet for 3 days. Please do no use other anti-inflammatories (like ibuprofen, aleve, naproxen, etc) while you are on this medication. 2. Get the labwork. 3. Get the xrays. 4. Schedule w/ ortho. documented in this encounter [facility] 02-06-2023 History of Presen t illness Narrative This is a 57 year old female who presents today with: Patient presents with: Knee Pain: Bilateral knee pain; L worse than R; no injury HISTORY OF PRESENT ILLNESS: Paulina Mei is a 57 year old female. Patient presents with: Knee Pain: Bilateral knee pain; L worse than R; no injury Pt presents today with complaint of bilateral knee pain. Has been going on for the last 1 1/2 - 2 months. Refers progressively worsening. Harder to walk and get around and do things. No injuries to the knees. No popping/cracking in the knees. Left will start to give out on her. Refers the pain never goes away. Pain is worse at night than during the day. Hx rheumatoid and osteoarthritis, as well as fibromyalgia. Currently she is followed with pain management. Taking percocet. Refers that the percocet hardly even touches the pain in her knees. Avoids nsaids d/t hx of gastric bypass. PAST MEDICAL HISTORY: PAST MEDICAL HISTORY Diagnosis Date Anemia 08/14/2017 Chronic insomnia 09/09/2017 Depression 11/17/2012 Elevated liver function tests 05/22/2012 Fibromyalgia Hyperlipidemia LDL goal < 100 06/26/2010 Hypoglycemia after GI (gastrointestinal) surgery 04/30/2014 Iron deficiency anemia, unspecified Iron malabsorption 12/02/2017 Irritable bowel syndrome Migraine, unspecified, without mention of intractable migraine without mention of status migrainosus Morbid obesity due to excess calories (HCC) 12/15/2015 Polyneuropathy in other diseases classified elsewhere ([facility]) Recurrent major depression in partial remission ([facility]) 02/29/2020 Rheumatoid arthritis(714.0) Systemic lupus erythematosus arthritis (HCC) 03/18/2014 Unspecified asthma(493.90) Unspecified hypothyroidism Vitamin B 12 deficiency 11/22/2017 Vitamin D deficiency 09/16/2012 PAST SURGICAL HISTORY Procedure Laterality Date ARTHROSCOPY KNEE DIAGNOSTIC W/WO SYNOVIAL BX SPX Arthroscopy, knee CHOLECYSTECTOMY 1992 Cholecystectomy COLONOSCOPY 1999 ESOPHAGOGASTRODUODENOSCOPY TRANSORAL DIAGNOSTIC 1994 EGD HERNIA REPAIR 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 LAPS SUPRACRV HYSTERECT 250 GM/< RMVL TUBE/OVAR 08/09 endometriosis and ovarian cysts (EDIT 03/2015 abdominal incision) PULMONARY FUNCTION TEST ALLERGIES Bactrim [Sulfamethoxazole-Trimethoprim], Benzamycin [Erythromycin-Benzoyl Peroxide], Elavil [Amitriptyline], Environmental [Other], Guiafen-Pse [Pseudoephedrine-Guaifenesin], Humira [Adalimumab], Lodine [Etodolac], Methotrexate, Neurontin [Gabapentin], Nsaids (Non-Steroidal Anti-Inflammatory Drug), Ultram [Tramadol Hcl], Vicodin [Hydrocodone-Acetaminophen], Voltaren [Diclofenac Sodium], and Zostrix-Hp [Capsaicin] MEDICATIONS Current Outpatient Medications Medication Sig tiZANidine (ZANAFLEX) 4 mg tablet Take 2 tablets by mouth every 6 hours as needed (muscle spasms). traZODone (DESYREL) 150 mg tablet Take 1 tablet by mouth daily at bedtime. DULoxetine (CYMBALTA) 60 mg capsule Take 1 capsule by mouth twice daily. topiramate (TOPAMAX) 100 mg tablet Take 2 tablets by mouth twice daily. gabapentin (NEURONTIN) 600 mg tablet Take 1 tablet by mouth three times daily for 90 days. levothyroxine (LEVOXYL) 88 mcg tablet Take 1 tablet by mouth once daily. Take on empty stomach. For Thyroid albuterol HFA (PROVENTIL HFA, VENTOLIN HFA) 90 mcg/actuation inhaler Inhale 2 Puffs as instructed every 4 hours as needed for Wheezing/Shortness of Breath. simethicone, chewable (MYLICON) 80 mg chewable tablet Take 1 tablet by mouth three times daily as needed. potassium chloride ER (K-DUR, KLOR-CON) 20 mEq tablet Take 1 tablet by mouth three times daily. busPIRone (BUSPAR) 10 mg tablet Take 1 tablet by mouth three times daily. naloxone 4 mg/actuation nasal spray (NARCAN) Use 1 spray in one nostril as needed for overdose. May repeat every 2 to 3 min in alternating nostrils until medical assistance is available Zinc 50 mg tab Take 1 tablet by mouth once daily. alendronate (FOSAMAX) 70 mg tablet Take 1 tablet by mouth one time a week. Take with a full glass of water, on an empty stomach; do NOT lie down for 30minutes. calcium carbonate 600 mg-cholecalciferol 200 units (CALCIUM 600 + D,3,) 600 mg(1,500mg) -200 unit tab Take 1 tablet by mouth twice daily. cholecalciferol (VITAMIN D3) 5,000 unit tab Take 1 tablet by mouth once daily. naloxone (NARCAN) 4 mg/actuation nasal spray 1 [place] by nasal (alternating) route as directed for 1 dose. 1 spray into 1 nostril. Additional doses may be given every 2-3 minutes until emergency arrives. fluticasone (FLONASE) 50 mcg/actuation nasal spray Use 2 Sprays in each nostril once daily. Rinse mouth after use. blood sugar diagnostic (ONETOUCH ULTRA TEST) test strip test once/day. DX 250.00 no insulin Blood-Glucose Meter (ONETOUCH ULTRA SYSTEM KIT) monitoring kit test one time daily dx 250.00 no insulin No current facility-administered medications for this visit. FAMILY HISTORY Problem Relation Age of Onset Asthma Mother COPD Mother Arthritis Mother rheumatoid arthritis other (Circulation) Father Emphysema Maternal Grandmother Heart Maternal Grandmother Hypertension Maternal Grandfather Diabetes Maternal Grandfather Arthritis Maternal Uncle rheumatoid arthritis Social History Tobacco Use Smoking status: Never Smokeless tobacco: Never Vaping Use Vaping Use: Never used Substance Use Topics Alcohol use: No Drug use: No EXAM: BP 124/82 Pulse 76 Resp 16 LMP 02/05/2008 PHYSICAL EXAM: General Appearance: Well appearing, alert, in no acute distress, well-hydrated, well nourished.. Skin: Skin color, texture, turgor normal, no suspicious rashes or lesions. Head: Normocephalic, no masses, lesions, tenderness or abnormalities. Eyes: Anicteric sclera. Pupils are equally round and reactive to light. Extraocular movements are intact. . Lungs: Lungs clear to auscultation. No wheezing, rhonchi, rales.. Heart: RRR without murmur, gallop, or rubs. No ectopy. Extremities: knees with bilateral swelling L>R. Limited exam d/t discomfort and positioning in wheelchair. + crepitus w/ flexion/extension. ASSESSMENT/PLAN: 1. Acute pain of both knees - ICD9: 338.19, 719.46, ICD10: M25.561, M25.562 (primary diagnosis) Will get updated xrays. Referral to ortho. She does not use oral nsaids d/t gastric bypass. Will start prednisone taper. - XR KNEE GENERAL 4V AP BOTH/PA BOTH/LAT/MERC BILATERAL - CONSULT TO ORTHOPAEDICS - VITAMIN D 25 HYDROXY - KETOROLAC 60 MG/2 ML INTRAMUSCULAR SOLUTION 2. Hypokalemia - ICD9: 276.8, ICD10: E87.6 Recheck: - COMP METABOLIC PANEL 3. Hypothyroidism, unspecified type - ICD9: 244.9, ICD10: E03.9 Due for labs. - TSH BLD - T4 FREE/FREE THYROX 4. Hyperlipidemia with target LDL less than 100 - ICD9: 272.4, ICD10: E78.5 - LIPID PANEL, NONFASTING 5. Vitamin B 12 deficiency - ICD9: 266.2, ICD10: E53.8 - VITAMIN B12 BLOOD 6. Iron deficiency anemia, unspecified iron deficiency anemia type - ICD9: 280.9, ICD10: D50.9 - CBC + DIFF - FERRITIN BLD - IRON + TIBC 7. History of gastric bypass - ICD9: V45.86, ICD10: Z98.84 - VITAMIN D 25 HYDROXY - ZINC BLD - VITAMIN B12 BLOOD 8. Disorder of bone, unspecified - ICD9: 733.90, ICD10: M89.9 - VITAMIN D 25 HYDROXY Discussed treatment plan and patient voices understanding. Patient's questions answered appropriately. Medications and potential side effects were discussed and patient voices understanding. Return to the office as scheduled or as needed for worsening/no improvement. Marsha Macias APRN.PRESLEY documented in this encounter [facility] 01-21-2023 Note HNO ID: [id number] Author: Shakira Mattson MA Service: ? Author Type: Production Control Coordinator Type: Progress Notes Filed: 01/21/2023 4:26 PM Note Text: POPULATION HEALTH NAVIGATION OUTREACH Action/FYI Spoke with Paulina. Scheduled Mammograms Patient declined colonoscopy and medicare wellness exam ANNUAL MEDICARE WELLNESS COLORECTAL CANCER SCREENING Never done MAMMOGRAM due on 01/21/2015 Patient Identified by Name and : YES, via phone Outreach Outcome/Action Spoke to patient / parent / legal guardian: Patient scheduled Patient declined Did you use a PCP flex slot to schedule this appointment? No Reason for Outreach Care Gap or Scheduling/Wellness visits Payer: Payor: MEDICARE / Plan: MEDICARE A AND B / Product Type: Medicare / Care Gap Reviewed:: Annual Wellness visit Breast Cancer screening Colorectal Cancer Screening Reminder: Reminder note to check Health Maintenance for items below Health Maintenance items due: COVID-19 VACCINE(1) Never done SPIROMETRY Never done HIV SCREENING Never done DTAP,TDAP,TD(2 - Tdap) due on 01/11/2009 COLORECTAL CANCER SCREENING Never done HEPATITIS B(2 of 3 - 19+ 3-dose series) due on 08/26/2012 MAMMOGRAM due on 01/21/2015 SHINGRIX VACCINE(1 of 2) Never done PNEUMOCOCCAL(2 - PCV) due on 07/24/2018 Navigation Signature: Shakira Mattson MA January 21, 2023 1:08 PM [facility] 01-21-2023 Note Patient Outreach (SUPRIYA LOPEZ) PAULINA MEI ([id number]) 1965 F NFR Date Time Provider Department 01/21/23 SHAKIRA MATTSON [employer] During your visit today, we recorded the following information about you: Shakira Mattson MA 01/21/2023 4:26 PM Signed POPULATION HEALTH NAVIGATION OUTREACH Action/FYI Spoke with Paulina. Scheduled Mammograms Patient declined colonoscopy and medicare wellness exam ANNUAL MEDICARE WELLNESS COLORECTAL CANCER SCREENING Never done MAMMOGRAM due on 01/21/2015 Patient Identified by Name and : YES, via phone Outreach Outcome/Action Spoke to patient / parent / legal guardian: Patient scheduled Patient declined Did you use a PCP flex slot to schedule this appointment? No Reason for Outreach Care Gap or Scheduling/Wellness visits Payer: Payor: MEDICARE / Plan: MEDICARE A AND B / Product Type: Medicare / Care Gap Reviewed:: Annual Wellness visit Breast Cancer screening Colorectal Cancer Screening Reminder: Reminder note to check Health Maintenance for items below Health Maintenance items due: COVID-19 VACCINE(1) Never done SPIROMETRY Never done HIV SCREENING Never done DTAP,TDAP,TD(2 - Tdap) due on 01/11/2009 COLORECTAL CANCER SCREENING Never done HEPATITIS B(2 of 3 - 19+ 3-dose series) due on 08/26/2012 MAMMOGRAM due on 01/21/2015 SHINGRIX VACCINE(1 of 2) Never done PNEUMOCOCCAL(2 - PCV) due on 07/24/2018 Navigation Signature: Shakira Mattson MA January 21, 2023 1:08 PM Allergies As of Date: 01/21/2023 Noted Allergy Reaction BACTRIM (SULFAMETHOXAZOLE-TRIMETH*2004 8 - GI Upset Comments: diarrhea BENZAMYCIN (ERYTHROMYCIN-BENZOYL *08/01/2005 5 - Intolerance Comments: Gastric upset ELAVIL (AMITRIPTYLINE) 12/18/2019 8 - GI Upset Comments: nausea environmental [Other] 08/19/2007 Comments: cats GUIAFEN-PSE (PSEUDOEPHEDRINE-GUAI*04/14/2011 6 - Diarrhea HUMIRA (ADALIMUMAB) 04/07/2013 2 - Rash Comments: hair loss LODINE (ETODOLAC) 10/11/2005 8 - GI Upset METHOTREXATE 04/05/2014 14 - Other: See Comments Comments: SANDY NEURONTIN (GABAPENTIN) 08/01/2005 NSAIDS (NON-STEROIDAL ANTI-INFLAM*07/06/2019 14 - Other: See Comments Comments: high risk of peptic ulcer disease (s/p gastric bypass) ULTRAM (TRAMADOL HCL) 08/01/2005 6 - Diarrhea VICODIN (HYDROCODONE-ACETAMINOPHE*2004 1 - Mental Status Change VOLTAREN (DICLOFENAC SODIUM) 08/29/2005 Comments: sedation ZOSTRIX-HP (CAPSAICIN) 08/23/2005 Date Reviewed: 04/26/2022 Reviewed by: Faye Beltran MD - Fully Assessed Reason for Visit: Population Health Navigation Outreach [3910] Cmt: ANA PETERSON PCSA Prescriptions as of 01/31/2023 - tiZANidine (ZANAFLEX) 4 mg tablet Take 2 tablets by mouth every 6 hours as needed (muscle spasms). - traZODone (DESYREL) 150 mg tablet Take 1 tablet by mouth daily at bedtime. - simethicone, chewable (MYLICON) 80 mg chewable tablet Take 1 tablet by mouth three times daily as needed. - DULoxetine (CYMBALTA) 60 mg capsule Take 1 capsule by mouth twice daily. - topiramate (TOPAMAX) 100 mg tablet Take 2 tablets by mouth twice daily. - gabapentin (NEURONTIN) 600 mg tablet Take 1 tablet by mouth three times daily for 90 days. - levothyroxine (LEVOXYL) 88 mcg tablet Take 1 tablet by mouth once daily. Take on empty stomach. For Thyroid - potassium chloride ER (K-DUR, KLOR-CON) 20 mEq tablet Take 1 tablet by mouth three times daily. - busPIRone (BUSPAR) 10 mg tablet Take 1 tablet by mouth three times daily. - naloxone 4 mg/actuation nasal spray (NARCAN) Use 1 spray in one nostril as needed for overdose. May repeat every 2 to 3 min in alternating nostrils until medical assistance is available - Zinc 50 mg tab Take 1 tablet by mouth once daily. - alendronate (FOSAMAX) 70 mg tablet Take 1 tablet by mouth one time a week. Take with a full glass of water, on an empty stomach; do NOT lie down for 30minutes. - calcium carbonate 600 mg-cholecalciferol 200 units (CALCIUM 600 + D,3,) 600 mg(1,500mg) -200 unit tab Take 1 tablet by mouth twice daily. - cholecalciferol (VITAMIN D3) 5,000 unit tab Take 1 tablet by mouth once daily. - naloxone (NARCAN) 4 mg/actuation nasal spray 1 [place] by nasal (alternating) route as directed for 1 dose. 1 spray into 1 nostril. Additional doses may be given every 2-3 minutes until emergency arrives. - fluticasone (FLONASE) 50 mcg/actuation nasal spray Use 2 Sprays in each nostril once daily. Rinse mouth after use. - albuterol HFA (PROVENTIL HFA, VENTOLIN HFA) 90 mcg/actuation inhaler Inhale 2 Puffs as instructed every 4 hours as needed for Wheezing/Shortness of Breath. - blood sugar diagnostic (ONETOUCH ULTRA TEST) test strip test once/day. DX 250.00 no insulin - Blood-Glucose Meter (ONETOUCH ULTRA SYSTEM KIT) monitoring kit test one time daily dx 250.00 no insulin Meds Comments as of 04/14/2013: Prob (more content not included)... [facility] 12-27-2022 Miscellaneous Notes Noted. Dru Wolff PA-C See TE 12/26/22. Attempted to contact pt's sister Callie in regard to telephone encounter for medication request from 12/26/22. Line busy. Contacted patient and she states she has improved today. She states she does not feel she is dehydrated or needs to be evaluated. States she is drinking fluids. Appetite is poor at this time. She denies having any current concerns or complaints. Reminded patient to seek ER for any severe sx's. Silvia Gauthier RN documented in this encounter [facility] 12-27-2022 Miscellaneous Notes Patient was triaged Added to triage schedule. Dru has left for the day. Without knowing her, I would be hesitant to prescribe anything like that without seeing her. Please go over s/s of dehydration. Give all of her other meds, I would hold on something unless she cannot keep anything down at all. If that is occurring, would need seen here or ER Spoke to pt's sister & she states she wasn't asking for medication for pt's mood/anxiety, she is asking for something to help with nausea &I vomiting. Please advise. Michaela Eller LPN Left message for patient sister to call back Kenzie Figueroa Ma Please communicate my condolences, I am very sorry to hear of her passing. I enjoyed taking care of her through the years. She is currently on the maximum amount of psychiatric medications I would be comfortable prescribing: tizanidine has tricyclic effects, mixed with trazedone, cymbalta, topamax, neurontin, and buspar. We are currently at risk of excess serotonin syndrome and adding further medications would not be recommended unless we wean off one of the other medications. Buspar is specifically for anxiety. I would encourage grief counseling through Hospice which is a free service. Thanks, Dru Wolff PA-C Reviewing chart, would defer to Dru on how to handle Sister calling to let you know a parent has and pt upset to point of vomiting. They are asking for something to help calm pt down. Declined apt in the office at this time. Please advise sister. Luz Chaparro LPN documented in this encounter [facility] 11-28-2022 Note Patient Outreach (SUPRIYA TNAV) PAULINA MEI ([id number]) 1965 F NFR Date Time Provider Department 11/28/22 SHAKIRA MATTSON During your visit today, we recorded the following information about you: Shakira Mattson MA 11/28/2022 1:46 PM Signed POPULATION HEALTH NAVIGATION OUTREACH Action/SRINIVAS [employer] MESSAGE SENT ANNUAL MEDICARE WELLNESS COLORECTAL CANCER SCREENING Never done MAMMOGRAM due on 01/21/2015 INFLUENZA(1) due on 05/03/2022 Patient Identified by Name and : NO Outreach Outcome/Action Unable to reach patient: Phone number not valid / voicemail full [employer] message sent Did you use a PCP flex slot to schedule this appointment? N/A Reason for Outreach Care Gap or Scheduling/Wellness visits Payer: Payor: MEDICARE / Plan: MEDICARE A AND B / Product Type: Medicare / Care Gap Reviewed:: Annual Wellness visit Breast Cancer screening Colorectal Cancer Screening Flu Vaccine Reminder: Reminder note to check Health Maintenance for items below Health Maintenance items due: COVID-19 VACCINE(1) Never done SPIROMETRY Never done HIV SCREENING Never done DTAP,TDAP,TD(2 - Tdap) due on 01/11/2009 COLORECTAL CANCER SCREENING Never done HEPATITIS B(2 of 3 - 19+ 3-dose series) due on 08/26/2012 MAMMOGRAM due on 01/21/2015 SHINGRIX VACCINE(1 of 2) Never done PNEUMOCOCCAL(2 - PCV) due on 07/24/2018 INFLUENZA(1) due on 05/03/2022 Navigation Signature: Shakira Mattson MA November 28, 2022 9:29 AM Allergies As of Date: 11/28/2022 Noted Allergy Reaction BACTRIM (SULFAMETHOXAZOLE-TRIMETH*2004 8 - GI Upset Comments: diarrhea BENZAMYCIN (ERYTHROMYCIN-BENZOYL *08/01/2005 5 - Intolerance Comments: Gastric upset ELAVIL (AMITRIPTYLINE) 12/18/2019 8 - GI Upset Comments: nausea environmental [Other] 08/19/2007 Comments: cats GUIAFEN-PSE (PSEUDOEPHEDRINE-GUAI*04/14/2011 6 - Diarrhea HUMIRA (ADALIMUMAB) 04/07/2013 2 - Rash Comments: hair loss LODINE (ETODOLAC) 10/11/2005 8 - GI Upset METHOTREXATE 04/05/2014 14 - Other: See Comments Comments: SANDY NEURONTIN (GABAPENTIN) 08/01/2005 NSAIDS (NON-STEROIDAL ANTI-INFLAM*07/06/2019 14 - Other: See Comments Comments: high risk of peptic ulcer disease (s/p gastric bypass) ULTRAM (TRAMADOL HCL) 08/01/2005 6 - Diarrhea VICODIN (HYDROCODONE-ACETAMINOPHE*2004 1 - Mental Status Change VOLTAREN (DICLOFENAC SODIUM) 08/29/2005 Comments: sedation ZOSTRIX-HP (CAPSAICIN) 08/23/2005 Date Reviewed: 04/26/2022 Reviewed by: Faye Beltran MD - Fully Assessed Reason for Visit: Population Health Navigation Outreach [3910] Cmt: ACO NICHOLAS PCSA Prescriptions as of 11/28/2022 - tiZANidine (ZANAFLEX) 4 mg tablet Take 2 tablets by mouth every 6 hours as needed (muscle spasms). - traZODone (DESYREL) 150 mg tablet Take 1 tablet by mouth daily at bedtime. - simethicone, chewable (MYLICON) 80 mg chewable tablet Take 1 tablet by mouth three times daily as needed. - DULoxetine (CYMBALTA) 60 mg capsule Take 1 capsule by mouth twice daily. - topiramate (TOPAMAX) 100 mg tablet Take 2 tablets by mouth twice daily. - gabapentin (NEURONTIN) 600 mg tablet Take 1 tablet by mouth three times daily for 90 days. - levothyroxine (LEVOXYL) 88 mcg tablet Take 1 tablet by mouth once daily. Take on empty stomach. For Thyroid - potassium chloride ER (K-DUR, KLOR-CON) 20 mEq tablet Take 1 tablet by mouth three times daily. - busPIRone (BUSPAR) 10 mg tablet Take 1 tablet by mouth three times daily. - naloxone 4 mg/actuation nasal spray (NARCAN) Use 1 spray in one nostril as needed for overdose. May repeat every 2 to 3 min in alternating nostrils until medical assistance is available - Zinc 50 mg tab Take 1 tablet by mouth once daily. - alendronate (FOSAMAX) 70 mg tablet Take 1 tablet by mouth one time a week. Take with a full glass of water, on an empty stomach; do NOT lie down for 30minutes. - calcium carbonate 600 mg-cholecalciferol 200 units (CALCIUM 600 + D,3,) 600 mg(1,500mg) -200 unit tab Take 1 tablet by mouth twice daily. - cholecalciferol (VITAMIN D3) 5,000 unit tab Take 1 tablet by mouth once daily. - naloxone (NARCAN) 4 mg/actuation nasal spray 1 [place] by nasal (alternating) route as directed for 1 dose. 1 spray into 1 nostril. Additional doses may be given every 2-3 minutes until emergency arrives. - fluticasone (FLONASE) 50 mcg/actuation nasal spray Use 2 Sprays in each nostril once daily. Rinse mouth after use. - albuterol HFA (PROVENTIL HFA, VENTOLIN HFA) 90 mcg/actuation inhaler Inhale 2 Puffs as instructed every 4 hours as needed for Wheezing/Shortness of Breath. - blood sugar diagnostic (ONETOUCH ULTRA TEST) test strip test once/day. DX 250.00 no insulin - Blood-Glucose Meter (ONETOUCH ULTRA SYSTEM KIT) monitoring kit test one time daily dx 250.00 no insulin Meds Comments as of 04/14 (more content not included)... [facility] 11-28-2022 Note HNO ID: [id number] Author: Shakira Mattson MA Service: ? Author Type: Production Control Coordinator Type: Progress Notes Filed: 11/28/2022 1:46 PM Note Text: POPULATION HEALTH NAVIGATION OUTREACH Action/I [employer] MESSAGE SENT ANNUAL MEDICARE WELLNESS COLORECTAL CANCER SCREENING Never done MAMMOGRAM due on 01/21/2015 INFLUENZA(1) due on 05/03/2022 Patient Identified by Name and : NO Outreach Outcome/Action Unable to reach patient: Phone number not valid / voicemail full [employer] message sent Did you use a PCP flex slot to schedule this appointment? N/A Reason for Outreach Care Gap or Scheduling/Wellness visits Payer: Payor: MEDICARE / Plan: MEDICARE A AND B / Product Type: Medicare / Care Gap Reviewed:: Annual Wellness visit Breast Cancer screening Colorectal Cancer Screening Flu Vaccine Reminder: Reminder note to check Health Maintenance for items below Health Maintenance items due: COVID-19 VACCINE(1) Never done SPIROMETRY Never done HIV SCREENING Never done DTAP,TDAP,TD(2 - Tdap) due on 01/11/2009 COLORECTAL CANCER SCREENING Never done HEPATITIS B(2 of 3 - 19+ 3-dose series) due on 08/26/2012 MAMMOGRAM due on 01/21/2015 SHINGRIX VACCINE(1 of 2) Never done PNEUMOCOCCAL(2 - PCV) due on 07/24/2018 INFLUENZA(1) due on 05/03/2022 Navigation Signature: Shakira Mattson MA November 28, 2022 9:29 AM [facility] 11-28-2022 History of Presen t illness Narrative POPULATION HEALTH NAVIGATION OUTREACH Action/ Fast busyx2 [employer] MESSAGE SENT ANNUAL MEDICARE WELLNESS COLORECTAL CANCER SCREENING Never done MAMMOGRAM due on 01/21/2015 INFLUENZA(1) due on 05/03/2022 Patient Identified by Name and : NO Outreach Outcome/Action Unable to reach patient: Phone number not valid / voicemail full [facility] Medical Managementhart message sent Did you use a PCP flex slot to schedule this appointment? N/A Reason for Outreach Care Gap or Scheduling/Wellness visits Payer: Payor: MEDICARE / Plan: MEDICARE A AND B / Product Type: Medicare / Care Gap Reviewed:: Annual Wellness visit Breast Cancer screening Colorectal Cancer Screening Flu Vaccine Reminder: Reminder note to check Health Maintenance for items below Health Maintenance items due: COVID-19 VACCINE(1) Never done SPIROMETRY Never done HIV SCREENING Never done DTAP,TDAP,TD(2 - Tdap) due on 01/11/2009 COLORECTAL CANCER SCREENING Never done HEPATITIS B(2 of 3 - 19+ 3-dose series) due on 08/26/2012 MAMMOGRAM due on 01/21/2015 SHINGRIX VACCINE(1 of 2) Never done PNEUMOCOCCAL(2 - PCV) due on 07/24/2018 INFLUENZA(1) due on 05/03/2022 Navigation Signature: Shakira Mattson MA November 28, 2022 9:29 AM documented in this encounter [facility] 11-14-2022 Miscellaneous Notes Phoned Chiara Quevedo, [facility], and given Nicol reply in previous encounter. Yes, I agree with changes. Thanks, Dru Wolff PA-C documented in this encounter [facility] 11-14-2022 Miscellaneous Notes Left message for Emy to return call to office. Rahul Andre LPN Yes, I agree with changes. Thanks, Dru Wolff PA-C Emy Marie NP with [facility] calling to see if you would agree to changing pt's Tizanidine 4 mg taking (2) three times a day to Baclofen 10 mg taking (1) four times per day. Pt was seen by Emy and agrees with what every the two of you agree on. If this is okay with you she will have the pt stop the Tizanidine and start her on the Baclofen and Pain Management will handle prescribing this. Please get back to Emy Young NP. Her last day with [facility] is tomorrow 11-15-22 and she will be coming on board with [facility]. PH: [phone]. Luz Chaparro LPN documented in this encounter [facility] 11-10-2022 Miscellaneous Notes OK to refill as ordered Miller Stafford MD Last office visit: 07/03/22 F/u scheduled: none RX INSTRUCTIONS: Patient asking for enough until Saturday when she sees pain management doctor. Patient is out and all muscles are very painful. Please advise and call patient. Livia Watkins Ma Patient has been identified by name and date of : Yes Last office visit in this department: 07/03/2022 RX INSTRUCTIONS: Patient asking for enough until Saturday when she sees pain management doctor. Patient is out and all muscles are very painful. Please advise and call patient. Patient aware RX will be sent to pharmacy. No need to notify patient. Patient phones requesting refills as follows: Requested Prescriptions Pending Prescriptions Disp Refills tiZANidine (ZANAFLEX) 4 mg tablet 240 tablet 1 Sig: Take 2 tablets by mouth every 6 hours as needed (muscle spasms). Please review and advise. Merari Boothe Pss documented in this encounter [facility] 11-08-2022 Miscellaneous Notes Spoke with with pharmacy. Patient filled #240 tizanidine on 10/10/22, then used a discount card to fill another #240 tizanidine on 10/29/22 because insurance would not pay for it. Patient requested this refill yesterday, 11/07/22. Called pt, she admitted to receiving these prescriptions. Dru advices that patient reach out to pain management physician if needing this much tizanidine in a short amount of time. Pt is agreeable with plan Emy Jang Ma Patient is calling she stated that [facility] told her they do not have the prescription from 10/10/22. Patient requested we call the Pharmacy to clear up this matter. Then call the patient. Tizanidine just written for 90 day supply on 10/10/22 with 1 refill. GE 07/03/22 NOV none scheduled Please advise on request for Trazodone. Sena Lopez MA Patient has been identified by name and date of : Yes Requested Prescriptions Pending Prescriptions Disp Refills traZODone (DESYREL) 150 mg tablet 90 tablet 1 Sig: Take 1 tablet by mouth daily at bedtime. tiZANidine (ZANAFLEX) 4 mg tablet 240 tablet 1 Sig: Take 2 tablets by mouth every 6 hours as needed (muscle spasms). RX INSTRUCTIONS: Patient aware RX will be sent to pharmacy. No need to notify patient. Yaz Dunham Pss documented in this encounter [facility] 11-08-2022 Miscellaneous Notes Opened in error documented in this encounter [facility] 10-16-2022 Miscellaneous Notes Patient calls back and MC message reviewed. Patient distraught and will contact [facility]'s office. Patient reports she is aware of the rules for narcotics and as long as she has chronic pain there is no reason why Dru can't write a prescription for pain medication. Patient reports that she was never notified that the percocet was being tapered off despite current prescription directions and previous TE's and communication with providers. Patient declined prednisone taper. She reports she already has prednisone as well as gabapentin and what she needs is a pain pill. Patient has pain management appointment scheduled for October [address] Sue. Mother is currently hospitalized so patient reports she is able to take care of herself. Juanita Vizcaino RN See [employer] message. Dru Wolff PA-C Pt calls back checking on status of message. Kathryn Stauffer LPN Patient calling to say she is out of pain medication and began having withdrawal symptoms three days ago. She says she hurts all over, says she is shaking and is nauseated without vomiting. She is asking for pain medication. Advised ER evaluation for withdrawal symptoms. She states she has no transportation until 6 PM and then she is a low priority because of her mother's illness. She states this is inhumane the way I am being treated. I need my pain medication and I haven't been able to call Dr. Bhagat because my mother is sick. Again advised ER evaluation for withdrawal symptoms. She states she refuses to go to ER. Samira Villareal RN documented in this encounter [facility] 10-10-2022 Miscellaneous Notes Patient has been identified by name and date of : Yes Requested Prescriptions Pending Prescriptions Disp Refills tiZANidine (ZANAFLEX) 4 mg tablet 240 tablet 1 Sig: Take 2 tablets by mouth every 6 hours as needed (muscle spasms). RX INSTRUCTIONS: Patient aware RX will be sent to pharmacy. No need to notify patient. Marlene Valentin Pss documented in this encounter [facility] 10-09-2022 Miscellaneous Notes Form, face sheet, copy of insurance card, referral, last 3 office visits, multiple radiology reports, and the pain management discharge letter from Dr Beltran's office( per the request of Dr. Sue's form) was faxed to Dr Sue as requested. Emy Jang Ma She has an outstanding consult for pain management. Please print and send to Dr. Sue. Plea\ss send copy of my last notes. Thanks, Dru Wolff PA-C Patient calling with request for referral to Dr. Bhagat, Pain Management. . Samira Villareal RN documented in this encounter [facility] 09-27-2022 History of Presen t illness Narrative POPULATION HEALTH NAVIGATION OUTREACH Action/FYI LVM MYCHART MESSAGE SENT ANNUAL MEDICARE WELLNESS COLORECTAL CANCER SCREENING Never done MAMMOGRAM due on 01/21/2015 INFLUENZA(1) due on 05/03/2022 Patient Identified by Name and : NO Outreach Outcome/Action Unable to reach patient: Left message [facility] Medical Managementhart message sent Did you use a PCP flex slot to schedule this appointment? N/A Reason for Outreach Care Gap or Scheduling/Wellness visits Payer: Payor: MEDICARE / Plan: MEDICARE A AND B / Product Type: Medicare / Care Gap Reviewed:: Annual Wellness visit Breast Cancer screening Colorectal Cancer Screening Flu Vaccine Reminder: Reminder note to check Health Maintenance for items below Health Maintenance items due: COVID-19 VACCINE(1) Never done SPIROMETRY Never done HIV SCREENING Never done DTAP,TDAP,TD(2 - Tdap) due on 01/11/2009 COLORECTAL CANCER SCREENING Never done HEPATITIS B(2 of 3 - 19+ 3-dose series) due on 08/26/2012 MAMMOGRAM due on 01/21/2015 SHINGRIX VACCINE(1 of 2) Never done PNEUMOCOCCAL(2 - PCV) due on 07/24/2018 INFLUENZA(1) due on 05/03/2022 Navigation Signature: Shakira Mattson MA September 27, 2022 8:36 AM documented in this encounter [facility] 09-04-2022 Miscellaneous Notes Called patient who tells me her sister called with her wishes to continue me as PCP. There is no record of a call. She has not made efforts to find a different PCP. She has not made efforts to have pain management oversight. I will discuss with obuden service. The following approved medication requests have been transmitted electronically. Requested Prescriptions Signed Prescriptions Disp Refills oxyCODONE-acetaminophen (PERCOCET) 5-325 mg tablet 120 tablet 0 Sig: Take 1 tablet by mouth every 6 hours as needed for pain. Authorizing Provider: Jocelyn WOLFF PA-C documented in this encounter [facility] 09-04-2022 Miscellaneous Notes I have sent concerns to the ombudsman but have not received a return answer about termination of care. To my knowledge she has not sought a new PCP nor pain management consult which was explicitly discussed at her last office visit. Pharmacy verified in Epic Patient has been identified by name and date of : Yes Patient aware RX will be sent to pharmacy. No need to notify patient. Patient phones for refill(s): Requested Prescriptions Pending Prescriptions Disp Refills oxyCODONE-acetaminophen (PERCOCET) 5-325 mg tablet 120 tablet 0 Sig: Take 1 tablet by mouth every 6 hours as needed for pain for up to 30 days. Date of last office visit : 07/03/2022 Date of next office visit : Visit date not found Last 2 Encounter Wt Readings: Date: Wt: 03/04/2022 79.1 kg (174 lb 6.4 oz) 03/02/2022 79.7 kg (175 lb 12.8 oz) Please advise. Alicja Scruggs Pss documented in this encounter [facility] 08-30-2022 Miscellaneous Notes Patient has been identified by name and date of : Yes Last office visit in this department: 07/03/2022 RX INSTRUCTIONS: Patient aware RX will be sent to pharmacy. No need to notify patient. Patient phones requesting refills as follows: Requested Prescriptions Pending Prescriptions Disp Refills tiZANidine (ZANAFLEX) 4 mg tablet 240 tablet 1 Sig: Take 2 tablets by mouth every 6 hours as needed (muscle spasms). Please review and advise. Merari Boothe Pss documented in this encounter [facility] 08-29-2022 Miscellaneous Notes Pt notified. She verbalized understanding. Call ended without argument. Rahul Andre LPN We are not allowed to prescribe narcotic meds personally without seeing the patient. It appears she has enough pain meds on hand per Dru's notes. Would defer to his judgement. Patient calls to check on status of request for pain medication. Reviewed below message and order for prednisone. Patient reports she is already taking prednisone 20 mg daily for [facility]. Patient reports that she is requesting tramadol to add to current pain medication regimen. Notified patient that Dru was out today and patient become upset. Patient requested message be forwarded to covering provider. Appointment with Spine --Eunice Olivarez tomorrow. Patient declined to comment on PCP or pain management consult other than those are not until after the first of the year. Juanita Vizcaino RN She has an appointment with spine in 2 days with Eunice Olivarez. I will place orders for steroid taper. I see no progress on scheduling a new PCP or pain management consult. As I said, I will not continue narcotics past the first of the year- here current Rx will 09/08/2022. If she has not identified a new PCP or pain management provider, I will write a tapering dose to make sure she doesn't have withdrawal symptoms but after that I will not renew narcotics. The following approved medication requests have been transmitted electronically. Requested Prescriptions Signed Prescriptions Disp Refills predniSONE (DELTASONE) 10 mg tablet 30 tablet 0 Sig: Take 4 tabs daily x 3 days, then 3 tabs x 3 days, 2 tabs x 3 days, then 1 tab x3 days with food. Authorizing Provider: Jocelyn WOLFF PA-C Patient calling to follow up on previous message sent to provider. Patient states she is having leg pain and the gabapentin is not effective. States she can barely walk. She is asking if Dru Wolff can assist her. Please advise. Thank you. Spoke with patient and advised her of provider message. Patient thought provider was covering her for 6 months. When I told her that she was to get an appointment with pain management after the last visit on 07/03/22 to take over her care, she said she could not get in until the new . When asking patient to explain further, as yesterday she had not ever found a provider, she said she would not have been able to get a ride until the new . Both her sister and her cousin are said to be too busy working during the holidays. She told this MA that the pain management office did not have the 2022 schedule up to make appointment yet for the . When I questioned her what pain management office did not have a 2022 schedule up yet, all she would tell me was Perez Patient fired me with significant confrontation from her sister and was notified I would only continue pain medications through the end of August. She has current orders for gabapentin through the end of September. She needs to select another provider. Thanks, Dru Wolff PA-C Patient calls and notified that this will be addressed with Dru on . Patient still has not looked into pain management yet. Advised patient that she needs to be looking for pain management since order was placed on 07/03/2022. Patient asking for pain medications for her pain until she can find pain management provider. Please review and advise, Kelli Alvarez RN See 07/03/22 OV Dru made them aware of need to find new pain management provider. Patient has pain management consults placed already. VM left for patient to call PCP office for message below. Silvia Gauthier RN Let her know Dru is out of the office until . We are unable to call in pain meds over the phone without an appt. Can wait until his return to see what her recommends, see one of us or I can refer to pain management Pt called in and reports provider has her on pain medication for her legs. She states her legs are jumping again and she is in more pain and does not want to end up in the hospital like before. She reports she was in the hospital for 3 weeks due to the pain in her legs. She reports the Gabapentin works well with the pain medication, but she needs something more. She is asking if provider would increase the pain medication, or add something else with it. She states she has nerve problems, and wants to be able to walk for the holiday. Please call and advise. documented in this encounter [facility] 07-27-2022 History of Presen t illness Narrative POPULATION HEALTH NAVIGATION OUTREACH Action/FYI [facility] Support: Called pt to schedule an appt in Pain Management. Patient declined Pt identified by name and : YES, via phone Outreach Outcome/Action Spoke to patient or caregiver: Patient declined Did you use a PCP flex slot to schedule this appointment? No Reason for Outreach Care Gap or Scheduling/Wellness visits Payer: Payor: MEDICARE / Plan: MEDICARE A AND B / Product Type: Medicare / Care Gap Reviewed:: Specialty Scheduling Reminder: Reminder note to check Health Maintenance for items below Health Maintenance items due: COVID-19 VACCINE(1) Never done SPIROMETRY Never done HIV SCREENING Never done DTAP,TDAP,TD(2 - Tdap) due on 01/11/2009 COLORECTAL CANCER SCREENING Never done HEPATITIS B(2 of 3 - 19+ 3-dose series) due on 08/26/2012 MAMMOGRAM due on 01/21/2015 PNEUMOCOCCAL(2 - PCV) due on 07/24/2018 INFLUENZA(1) due on 05/03/2022 Message Sent to Practice: No Navigation Signature: Mamie Barrow July 27, 2022 3:56 PM documented in this encounter [facility] 07-21-2022 Miscellaneous Notes Dru received fax from home health stating SN will do visit weekly. Have not received any blood pressure results yet. Spoke to patient and advised her to have home health let us know how BP reading are. Advised patient to make appointment if she has dizziness or lightheadedness and she was agreeable. Emy Jang Ma She is on an a very high dose with oxycodone. It may be from the narcotics. She has script for narcan if she seems unstable they should administer. I refused to continue thi high dosing: see scripts from yesterday. She has fired me as PCP. She has not yet made an appointment to see a new provider. That needs to be done as soon as posisble. Thanks, Dru Wolff PA-C Phone number listed for Mandy is main [facility] phone #. DAYANNA to Salvador at [facility] ([phone]), left detailed message on secure identified voicemail. Waiting call back. Rahul Andre LPN See of they can get a repeat bp XOCHITL Galvan @ [facility] calling to report patient's BP was 71/51 @ 11A prior to starting therapy. Patient had no complaints of dizziness or lightheadedness. Patient was drinking liquid when OT arrived. OT did not re check BP. Physical Therapy is due to see patient later today. Samira Villareal RN documented in this encounter [facility] 07-19-2022 Miscellaneous Notes See other encounter Left message for patient to call office. No it cancelled the July rx when I added the August date The following approved medication requests have been transmitted electronically. Requested Prescriptions Signed Prescriptions Disp Refills oxyCODONE-acetaminophen (PERCOCET) 5-325 mg tablet 120 tablet 0 Sig: Take 1 tablet by mouth every 6 hours as needed for pain for up to 30 days. Do not start before August 09, 2022. Authorizing Provider: Jocelyn WOLFF oxyCODONE-acetaminophen (PERCOCET) 5-325 mg tablet 120 tablet 0 Sig: Take 1 tablet by mouth every 6 hours as needed for pain. Authorizing Provider: Jocelyn WOLFF PA-C ThanksDru PA-C I am uncomfortable prescribing this high of a narcotic load. I will provide 2 months of percocet refills at a lower amount and then I will not prescribe further. The following approved medication requests have been transmitted electronically. Requested Prescriptions Signed Prescriptions Disp Refills oxyCODONE-acetaminophen (PERCOCET) 5-325 mg tablet 120 tablet 0 Sig: Take 1 tablet by mouth every 6 hours as needed for pain for up to 30 days. Do not start before August 09, 2022. Authorizing Provider: Jocelyn WOLFF PA-C documented in this encounter [facility] 07-12-2022 Miscellaneous Notes Milly with [facility], PT calling with plan of care for pt. They will see pt 2 times a week for 3 week for lower extremities strengthening, transfers, gait training and balance. NO call needed. Luz Chaparro LPN documented in this encounter [facility] 07-12-2022 Miscellaneous Notes See additional phone message regarding refills. GE 07/03/2022 No appointment scheduled Please advise. Thank you. VERONICA Javier Patient has been identified by name and date of : Yes Requested Prescriptions Pending Prescriptions Disp Refills oxyCODONE-acetaminophen (PERCOCET) 5-325 mg tablet 42 tablet 0 Sig: Take 2 tablets by mouth every 4 hours as needed for pain. RX INSTRUCTIONS: Patient aware RX will be sent to pharmacy. No need to notify patient. Marlene Valentin Pss documented in this encounter [facility] 07-09-2022 Miscellaneous Notes Salvador notified of provider message Yes she has had + Rheumatoid factor + CCP, +BONNY Multiple treatment failures. Whole body pain. Worse in hands, feet. Thanks, Dru Wolff PA-C Salvador with [facility], nursing calling with a coding question. Salvador states they know pt has rheumatoid arthritis. 1)Pt's insurance is asking if pt had lab work done to dx this and was it positive. 2)Salvador also states she needs to know all sites pt's rheumatoid arthritis affects Please call Salvador back PH: [phone]. Luz Chaparro LPN documented in this encounter [facility] 07-09-2022 Miscellaneous Notes Zulema LEUNG calling from [facility] to report plan of care for patient and OT will visit patient 2 times a week for 2 weeks and 1 time a week for 1 week. OT will work with patient on home exercise program and ADL's. No return call needed if provider agrees with plan of care. Juanita Vizcaino RN documented in this encounter [facility] 07-04-2022 Miscellaneous Notes Left detailed message that below is ok except for the Ambien. Chronic insomnia is managed with trazodone. Copied from Dru's note: 13. Chronic insomnia - ICD9: 780.52, ICD10: F51.04 Manage with trazedone. Ok to continue all except I will check with Dru tomorrow when he returns on the ambien. I believe that was an issue with her multiple meds. Salvador from [facility] calling stating pt was discharged for hospital and she was reviewing pt's med list and pt has meds at home that were not filled on discharge and she wants to make sure pt is to be taking them: vitamin B12 2000 mcg daily, Iron 325 mg twice daily and zolpidem 10 mg every night as needed for insomnia Also shows a medication interaction between potassium and dicylomine. Ok to take both? halfway will follow pt 1x wk for 4 wks focusing on rheumatoid arthritis and pain control. Call Salvador at [phone] Yamile Michael LPN documented in this encounter [facility] 07-03-2022 History of Presen t illness Narrative 56 year old female with c/o Hospital discharge follow-up Date of admission 06/14/2022 Date of discharge: 06/14/2022 Discharge diagnoses: 1. Rheumatoid arthritis flare 2. Hypothyroidism 3. Fibromyalgia 4. Iron deficiency anemia 5. Vitamin B12 deficiency 6. Chronic migraine 7. Depression Hospital discharge summary: Preadmission details: 06/14/2022 presented to [facility] emergency department with complaint of having a flare with generalized pain over the last 10 days, placed by me on oral steroids but despite these had minimal improvement. Feels she is unable to take care of her self or even brush her hair, has difficulty standing or walking. She was able to drive to the emergency department even though she identified previously not able to ambulate. Physical exam: Vital signs 98.7 [id number]/107-98% RA. Exam was essentially normal except for obesity and contractures with chronic deformities to fingers and toes consistent with advanced rheumatoid. CBC WNL except hemoglobin 10.9, microcytic. CMP WNL except CL 115, BUN 20 with normal creatinine of 0.62, EGFR of 106 normal. Glucose 108. Calcium 8.0 low. TSH normal. Patient received Dilaudid 2 mg without response. Still with intractable pain and therefore was admitted. Admitted to Hospitalist Lina Welsh: Placed on 24-hour observation. Identified above diagnosis. Placed her on IV Toradol regimen alternating with Solu-Medrol with plan to transition to oral steroids, ice to affected joints and heating pads to sore muscles. Unfortunately hospitalist notes reflect that she is not currently on medications, unaware of the multiple trials and failures detailed in my records. Her medicines were continued. DVT prophylaxis with Lovenox. CODE STATUS: Full code. Patient was seen by PT and OT. [facility] nursing facility contacted and agreed to take patient for extremity rehab services. Discharge weight: 80.1 kg, BMI 32.3. Discharge labs: WBC 4.7-Hgb 10.9-HCT 38.1-PLT 269. Cannabis: NA 142-CL 115-K3.6-CO2 23.0-BUN 20-CR eight 0.62-glucose 108 Patient did have nasal swab negative for COVID. New medications on discharge: Oxycodone 5 m tabs every 4 hours as needed #20/0 Discontinue medication: Oxycodone-acetaminophen 5-325 MG Prednisone 10 mg twice daily No action: Prednisone 20 mg p.o. twice daily x4 days then 30 mg daily x4 days then 20 mg daily x4 days then 10 mg daily after Ferrous sulfate 325 mg p.o. twice daily Cyanocobalamin 2000 MCG p.o. daily Continue medications: Levothyroxine 88 MCG daily AC Topiramate 100 m tablets p.o. twice daily BuSpar 10 mg p.o. 3 times daily Tizanidine 4 mg 2 tabs by mouth every 8 hours as needed for muscle spasm Trazodone 150 mg p.o. nightly Duloxetine 60 mg delayed release daily Zolpidem 10 mg p.o. nightly as needed #5/0 06/14/2022 Patient was discharged 06/30/2022 Discharged from [facility] steroids seem to help at first. Thinks worst flare she's had. Pain is very bad, stating she will need refill on Oxycodone 5mg 2 tabs : taking each Saturday night Saturday. I explained she would need pain management oversight to continually prescribe Presents with her sister who described dissatisfaction with Dr. Beltran for discharging her r/t use of methadone which has previously been prescribed to her. I reviewed what her pain contact stated: only to take what is prescribed and that we have to follow [facility] guidelines as well as Federal law. Patient was given Methadone through Hospice and was also discharged from hospice for issues of overuse. Callie persisted in loudly rehearsing the many wrongs done to Paulina who failed multiple trials of arthritis medications with no one caring about her pain. Frustrated with me for taking away her Ambien though she is doing well on Trazedone. Feels I neglected her pain. They both acknowledged my prior care for them and their mother as wonderful. She said they will seek another provider. Paulina was crying through this time. I told them I was sorry they felt this way and emelia all my efforts have been to help. HISTORIES FAMILY HISTORY Problem Relation Age of Onset Asthma Mother COPD Mother Arthritis Mother rheumatoid arthritis other (Circulation) Father Emphysema Maternal Grandmother Heart Maternal Grandmother Hypertension Maternal Grandfather Diabetes Maternal Grandfather Arthritis Maternal Uncle rheumatoid arthritis PAST MEDICAL HISTORY Diagnosis Date Anemia 08/14/2017 Chronic insomnia 09/09/2017 Depression 11/17/2012 Elevated liver function tests 05/22/2012 Fibromyalgia Hyperlipidemia LDL goal < 100 06/26/2010 Hypoglycemia after GI (gastrointestinal) surgery 04/30/2014 Iron deficiency anemia, unspecified Iron malabsorption 12/02/2017 Irritable bowel syndrome Migraine, unspecified, without mention of intractable migraine without mention of status migrainosus Morbid obesity due to excess calories (HCC) 12/15/2015 Polyneuropathy in other diseases classified elsewhere ([facility]) Recurrent major depression in partial remission ([facility]) 02/29/2020 Rheumatoid arthritis(714.0) Systemic lupus erythematosus arthritis (HCC) 03/18/2014 Unspecified asthma(493.90) Unspecified hypothyroidism Vitamin B 12 deficiency 11/22/2017 Vitamin D deficiency 09/16/2012 PAST SURGICAL HISTORY Procedure Laterality Date ARTHROSCOPY KNEE DIAGNOSTIC W/WO SYNOVIAL BX SPX Arthroscopy, knee CHOLECYSTECTOMY 1992 Cholecystectomy COLONOSCOPY 1999 ESOPHAGOGASTRODUODENOSCOPY TRANSORAL DIAGNOSTIC 1994 EGD HERNIA REPAIR 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 LAPS SUPRACRV HYSTERECT 250 GM/< RMVL TUBE/OVAR 08/09 endometriosis and ovarian cysts (EDIT 03/2015 abdominal incision) PULMONARY FUNCTION TEST Social History Tobacco Use Smoking status: Never Smokeless tobacco: Never Vaping Use Vaping Use: Never used Substance Use Topics Alcohol use: No Drug use: No ACTIVE PROBLEM LIST Irritable Bowel Syndrome Hypothyroidism Photosensitivity Disorder Hyperlipidemia With Target Ldl Less Than 100 Vitamin D Deficiency Fibromyalgia Rheumatoid Arthritis Involving Multiple Sites (Hcc) Chronic Migraine Without Aura Without Status Migrainosus, Not Intractable Mild Intermittent Asthma Without Complication Insomnia Secondary to Anxiety Morbid Obesity Due to Excess Calories (Hcc) History of Gastric Bypass Gastroesophageal Reflux Disease Meralgia Paresthetica, Right Lower Limb Ddd (Degenerative Disc Disease), Lumbar Anemia Primary Osteoarthritis of Both Knees Vitamin B 12 Deficiency Iron Malabsorption Zinc Deficiency Vitamin B6 Deficiency Mcfp Prescription Opiate Use Sandy (Nonalcoholic Steatohepatitis) Idiopathic Peripheral Neuropathy Recurrent Major Depression in Partial Remission (Hcc) Spinal Stenosis, Lumbar Region With Neurogenic Claudication Other Osteoporosis Without Current Pathological Fracture Encounter for Support and Coordination of Transition of Care Current Outpatient Medications Medication Sig Dispense Refill tiZANidine (ZANAFLEX) 4 mg tablet Take 2 tablets by mouth every 6 hours as needed (muscle spasms). 240 tablet 0 traZODone (DESYREL) 150 mg tablet Take 1 tablet by mouth daily at bedtime. 30 tablet 2 topiramate (TOPAMAX) 100 mg tablet Take 2 tablets by mouth twice daily. 120 tablet 2 hydrOXYzine HCl (ATARAX) 10 mg tablet Take 1 tablet by mouth three times daily as needed for anxiety. 30 tablet 1 oxyCODONE-acetaminophen (PERCOCET) 5-325 mg tablet Take 1 tablet by mouth every 6 hours as needed for pain (for pain.) for up to 30 days. 120 tablet 0 Zinc 50 mg tab Take 1 tablet by mouth once daily. 90 tablet 3 alendronate (FOSAMAX) 70 mg tablet Take 1 tablet by mouth one time a week. Take with a full glass of water, on an empty stomach; do NOT lie down for 30minutes. 12 tablet 3 DULoxetine (CYMBALTA) 60 mg capsule Take 1 capsule by mouth twice daily. 60 capsule 5 calcium carbonate 600 mg-cholecalciferol 200 units (CALCIUM 600 + D,3,) 600 mg(1,500mg) -200 unit tab Take 1 tablet by mouth twice daily. 60 tablet 2 cholecalciferol (VITAMIN D3) 5,000 unit tab Take 1 tablet by mouth once daily. 30 tablet 2 LEVOXYL 88 mcg tablet Take 1 tablet by mouth once daily. Take on empty stomach. 90 tablet 0 naloxone (NARCAN) 4 mg/actuation nasal spray 1 [place] by nasal (alternating) route as directed for 1 dose. 1 spray into 1 nostril. Additional doses may be given every 2-3 minutes until emergency arrives. 1 Each 0 fluticasone (FLONASE) 50 mcg/actuation nasal spray Use 2 Sprays in each nostril once daily. Rinse mouth after use. 1 Bottle 0 albuterol HFA (PROVENTIL HFA, VENTOLIN HFA) 90 mcg/actuation inhaler Inhale 2 Puffs as instructed every 4 hours as needed for Wheezing/Shortness of Breath. 1 Inhaler 11 blood sugar diagnostic (ONETOUCH ULTRA TEST) test strip test once/day. DX 250.00 no insulin 1 Bottle 11 Blood-Glucose Meter (ONETOUCH ULTRA SYSTEM KIT) monitoring kit test one time daily dx 250.00 no insulin 1 Each 0 No current facility-administered medications for this visit. COVID-19 VACCINE(1) Never done SPIROMETRY Never done HIV SCREENING Never done DTAP,TDAP,TD(2 - Tdap) due on 01/11/2009 COLORECTAL CANCER SCREENING Never done HEPATITIS B(2 of 3 - 3-dose series) due on 08/26/2012 MAMMOGRAM due on 01/21/2015 PNEUMOCOCCAL(2 - PCV) due on 07/24/2018 INFLUENZA(1) due on 05/03/2022 EXAM: BP 100/56 Pulse (!) 54 Resp 16 LMP 02/05/2008 SpO2 98% Pleasant overweight adult woman, crying as above, in no acute distress. Alert and oriented all spheres. Normal affect and cognition. Speech normal. No deficits to learning or comprehension. Skin warm, dry, pink to lips and nailbeds. Normal turgor. Respirations regular and unlabored. Extrem: no clubbing or cyanosis. Edema: none. Extremities are warm and pink with prompt capillary refill. Atrophic hands and feet.with arthritic changes ASSESSMENT/PLAN: 1. Encounter for support and coordination of transition of care - ICD9: V65.8, ICD10: Z76.89 (primary diagnosis) Medication reconciliation completed. Records reviewed. Advised I would provide 6 months of refills on current medications to give them time to find another provider. 2. Spinal stenosis, lumbar region with neurogenic claudication - ICD9: 724.03, ICD10: M48.062 Pain contract resigned for temporary period. I will continue to supply for a short period until they establish with pain management - GABAPENTIN 600 MG TABLET - CONSULT TO PAIN MGT - OXYCODONE-ACETAMINOPHEN 5 MG-325 MG TABLET - CONSULT TO PAIN MGT 3. Recurrent major depression in partial remission (HCC) - ICD9: 296.35, ICD10: F33.41 - DULOXETINE 60 MG CAPSULE,DELAYED RELEASE - TOPIRAMATE 100 MG TABLET - BUSPIRONE 10 MG TABLET - BASIC METABOLIC PNL - CBC + DIFF 4. Fibromyalgia - ICD9: 729.1, ICD10: M79.7 - TIZANIDINE 4 MG TABLET - CONSULT TO PAIN MGT 5. Muscle spasm - ICD9: 728.85, ICD10: M62.838 - TIZANIDINE 4 MG TABLET - CONSULT TO PAIN MGT 6. Depression, unspecified depression type - ICD9: 311, ICD10: F32.A - DULOXETINE 60 MG CAPSULE,DELAYED RELEASE 7. 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 Rheumatoid arthritis involving multiple sites, unspecified whether rheumatoid factor present (HCC) - ICD9: 714.0, ICD10: M06.9 - DULOXETINE 60 MG CAPSULE,DELAYED RELEASE - CONSULT TO PAIN MGT - OXYCODONE-ACETAMINOPHEN 5 MG-325 MG TABLET - CONSULT TO PAIN MGT 9. Rheumatoid arthritis involving both hands with positive rheumatoid factor (HCC) - ICD9: 714.0, ICD10: M05.741, M05.742 - DULOXETINE 60 MG CAPSULE,DELAYED RELEASE - CONSULT TO PAIN MGT - CONSULT TO PAIN MGT 10. Iron deficiency anemia, unspecified iron deficiency anemia type - ICD9: 280.9, ICD10: D50.9 - CBC + DIFF - IRON + TIBC 11. Hypokalemia - ICD9: 276.8, ICD10: E87.6 - POTASSIUM CHLORIDE ER 20 MEQ TABLET,EXTENDED RELEASE(PART/CRYST) - BASIC METABOLIC PNL 12. Hypothyroidism, unspecified type - ICD9: 244.9, ICD10: E03.9 stable - LEVOTHYROXINE 88 MCG TABLET - TSH BLD - T4 FREE/FREE THYROX 13. Chronic insomnia - ICD9: 780.52, ICD10: F51.04 Manage with trazedone. Jocelyn Wolff PA-C documented in this encounter [facility] 06-29-2022 Miscellaneous Notes Called Jagruti at and gave VO that PCP will follow and sign orders. Emy Jang Ma Jagruti from [facility] calling [place] [facility] [place] [facility] [place] for the patient. Patient will be discharging Saturday from [facility], had Rheumatoid Arthritis flare and debility. Asking if PCP would follow patient and sign orders? Please advise documented in this encounter [facility] 06-19-2022 Miscellaneous Notes Patient returned call and given provider's message below. Patient reports she has been in [facility] hospital TCU, since Sat, with Dx: Arthritis flare up, lupus, and fibromyalgia. Patient agreeable to schedule a hospital f/u appt when she is discharged. Left message to return call to office. Rahul Andre LPN Left message for patient to return call. Emy Jang Ma Needs to follow up in office. The following approved medication requests have been transmitted electronically. Requested Prescriptions Signed Prescriptions Disp Refills predniSONE (DELTASONE) 10 mg tablet 30 tablet 0 Sig: Take 4 tabs daily x 3 days, then 3 tabs x 3 days, 2 tabs x 3 days, then 1 tab x3 days with food. Authorizing Provider: Jocelyn WOLFF Greg Barton, PA-C Patient calls to ask if provider will send in a prescription for a steroid to [facility]. Patient reports that she is having a terrible flare up of arthritis and it is affecting all of her joints and ability to ambulate. Offered to schedule an appointment for patient to discuss symptoms and medication request. Patient declined stating she has no transportation available. Juanita Vizcaino RN documented in this encounter [facility] 05-25-2022 Miscellaneous Notes Phoned patient at 829am to day and discussed her concerns. She kept repeating they said they have evidence from you stating that I can work. I told her it would be very odd as I am fully aware of her incapacity and would not have identified her for even sedentary work. She continued to make the same statements repeatedly and I told her I would be happy to fill out a new application for disability if needed. I have no copied paperwork on the chart, notes from nursing or myself indicating I received disability forms which is our protocol. I do not recall completing forms in the last year. I assumed care 01/13/2021. Dru Wolff PA-C Patient calling and yelling/verbally upset for the entirety of call. States she received a letter in the mail regarding her disability stating that Dru Wolff stated that patient is not disabled and can walk and work. Patient states she has been disabled for years and she now has to file an appeal and go to court to prove she is disabled. States Dr. Arnold assisted her with her disability in past. States she is unhappy with Dru and she will have to find another provider to help her with her disabilities. Patient ended call and this nurse was unable to ask further questions to gain further information. Silvia Gauthier RN documented in this encounter [facility] 05-21-2022 Miscellaneous Notes Last office visit: 12/26/21 F/u scheduled: 05/29/22 Livia Watkins [facility] Pharmacy verified in Epic Patient has been identified by name and date of : Yes Patient aware RX will be sent to pharmacy. No need to notify patient. Patient phones for refill(s): Requested Prescriptions Pending Prescriptions Disp Refills tiZANidine (ZANAFLEX) 4 mg tablet 240 tablet 0 Sig: Take 2 tablets by mouth every 6 hours as needed (muscle spasms). Date of last office visit : 12/26/2021 Date of next office visit : 05/29/2022 Last 2 Encounter Wt Readings: Date: Wt: 03/04/2022 79.1 kg (174 lb 6.4 oz) 03/02/2022 79.7 kg (175 lb 12.8 oz) Please advise. Alicja Scruggs Pss documented in this encounter [facility] 05-15-2022 Miscellaneous Notes Patient was notified of provider message. She will trial medication and call back if needed for appointment. Emy Jang Ma Addended by: Jocelyn WOLFF on: 05/15/2022 11:43 AM Modules accepted: Orders As previously noted, I am happy to see her again but with violation of her pain contract, I will not be prescribed any controlled substances for her. She will need to go through pain management for any controlled substance. I am happy to provide a consult to sleep medicine for other alternatives. I will place orders for Rozerem as a trial. Telephone on 05/15/22 CONSULT TO SLEEP MEDICINE - ADULT The following approved medication requests have been transmitted electronically. Requested Prescriptions Signed Prescriptions Disp Refills ramelteon (ROZEREM) 8 mg tablet 30 tablet 2 Sig: Take 1 tablet by mouth daily at bedtime. Authorizing Provider: Jocelyn WOLFF PA-C Patient calls and states that she has not been able to sleep for 3 days. Patient states that she needs to sleep. Patient is asking if provider can prescribe Ambien for her again? Please review and advise, Kelli Alvarez RN documented in this encounter [facility] 05-09-2022 History of Presen t illness Narrative POPULATION HEALTH NAVIGATION OUTREACH Action/FYI pt declined Patient is on HCC list for below gaps and needs appt to address : F33.41 - Recurrent major depression in partial remission (HCC) - [id number] Last Billed 06/16/2020
WELLNESS EXAM COLORECTAL CANCER SCREENING MAMMOGRAM INFLUENZA(1) Pt identified by name and : YES, via phone Outreach Outcome/Action Spoke to patient or caregiver: Patient declined Did you use a PCP flex slot to schedule this appointment? No Reason for Outreach HCC or suspected condition Payer: Payor: MEDICARE / Plan: MEDICARE A AND B / Product Type: Medicare / Care Gap Reviewed:: Annual Wellness visit Breast Cancer screening Colorectal Cancer Screening Flu vaccine Reminder: Reminder note to check Health Maintenance for items below Health Maintenance items due: COVID-19 VACCINE(1) Never done SPIROMETRY Never done HIV SCREENING Never done DTAP,TDAP,TD(2 - Tdap) due on 01/11/2009 COLORECTAL CANCER SCREENING Never done HEPATITIS B(2 of 3 - 3-dose series) due on 08/26/2012 MAMMOGRAM due on 01/21/2015 PNEUMOCOCCAL(2 - PCV) due on 07/24/2018 INFLUENZA(1) due on 05/03/2022 Message Sent to Practice: No Navigation Signature: Shakira Mattson MA May 09, 2022 8:49 AM documented in this encounter [facility] 04-30-2022 Miscellaneous Notes The following approved medication requests have been transmitted electronically. Requested Prescriptions Signed Prescriptions Disp Refills topiramate (TOPAMAX) 100 mg tablet 120 tablet 2 Sig: Take 2 tablets by mouth twice daily. Authorizing Provider: Jocelyn WOLFF tiZANidine (ZANAFLEX) 4 mg tablet 240 tablet 0 Sig: Take 2 tablets by mouth every 6 hours as needed (muscle spasms). Authorizing Provider: Jocelyn WOLFF PA-C Patient has been identified by name and date of : Yes Requested Prescriptions Pending Prescriptions Disp Refills topiramate (TOPAMAX) 100 mg tablet 120 tablet 2 Sig: Take 2 tablets by mouth twice daily. tiZANidine (ZANAFLEX) 4 mg tablet 240 tablet 0 Sig: Take 2 tablets by mouth every 6 hours as needed (muscle spasms). GE-12/26/21 Labs-11/23/21 NOV-none RX INSTRUCTIONS: pharmacy not showing new refill for tizanidine 4 mg tabs Patient aware RX will be sent to pharmacy. No need to notify patient. Estelle Vieyra Pss documented in this encounter [facility] 04-19-2022 Miscellaneous Notes The following approved medication requests have been transmitted electronically. Requested Prescriptions Signed Prescriptions Disp Refills hydrOXYzine HCl (ATARAX) 10 mg tablet 30 tablet 1 Sig: Take 1 tablet by mouth three times daily as needed for anxiety. Authorizing Provider: Jocelyn WOLFF Patient notified. Emmy Cabrera MA I thought patient established with Dr. Gil. I won't prescribe controlled substances due to failed pain contract. The following approved medication requests have been transmitted electronically. Requested Prescriptions Signed Prescriptions Disp Refills hydrOXYzine HCl (ATARAX) 10 mg tablet 30 tablet 1 Sig: Take 1 tablet by mouth three times daily as needed for anxiety. Authorizing Provider: Jocelyn WOLFF PA-C Patient states she is having increased anxiety due to her mother's illness and is requesting a medication to treat her anxiety. She states that the cymbalta isn't helping at all with the anxiety. Mentions that she is having trouble sleeping due to same. documented in this encounter [facility] 03-15-2022 Miscellaneous Notes Patient most recent UDS was positive for for methadone. This is inconsistent with her OARRS and a direct violation of the pain agreement with our practice. Discussed with Dr. Beltran and at this time patient will be no more meds. Letter has been completed. Please advise patient that her April prescription has been discontinued. We advised that she begin to wean her Percocet as follow: Percocet 1 tablet p.o. every 8 hours x5 days, then Percocet 1 tablet p.o. every 12 hours x5 days. Then decrease to 1 tablet p.o. until gone Please advise patient. Thank you, Eunice Olivarez APRN.SUPERVISOR INSTRUMENT MAINTENANCE documented in this encounter [facility] 03-07-2022 Miscellaneous Notes Patient given results and verbalized understanding of instructions given. Holly Mchugh ----- Message from Shakira Rajput APRN.SUPERVISOR INSTRUMENT MAINTENANCE sent at 03/07/2022 9:03 AM EDT ----- Please advise patient of negative COVID/flu test (result not viewed on Pad[employer]). documented in this encounter [facility] 03-06-2022 Miscellaneous Notes The following approved medication requests have been transmitted electronically. Signed Prescriptions Disp Refills tiZANidine (ZANAFLEX) 4 mg tablet 240 tablet 0 Sig: Take 2 tablets by mouth every 6 hours as needed (muscle spasms). JAMARI: No Authorizing Provider: Jocelyn WOLFF PA-C Last rx written 12/04/21 #240 with 1 refill. GE 12/26/21 NOV no upcoming appt (pt cancelled appt on 03/15/22). FYI- pt has appt on 03/15/22 to establish care with Dr. Gil. Patient has been identified by name and date of : Yes Pending Prescriptions Disp Refills TIZANIDINE 4 MG TABLET 240 tablet 1 Sig: Take 2 tablets by mouth every 6 hours as needed (muscle spasms). JAMARI: No RX INSTRUCTIONS: Patient aware RX will be sent to pharmacy. No need to notify patient. Marlene Valentin Pss documented in this encounter [facility] 03-04-2022 History of Presen t illness Narrative CC: Patient presents with: Acute Visit: covid symptoms x 3 days HPI: Paulina Mei is a 56 year old female who presents to the office with complaint of respiratory symptoms, head congestion and cough, nonproductive for a few days. Symptoms are staying the same. Associated symptoms includes body aches and fatigue. Denies fever, nausea, vomiting and diarrhea. Treatments tried include nothing so far. with no relief of symptoms. Sick contacts: unknown. History of asthma, frequent episodes of bronchitis, chronic bronchitis, bronchiectasis or COPD: No Smoker: No Seasonal/environmental allergies: No The ROS is otherwise negative. The patient's pmh, medications, allergies, and past visits are reviewed. PHYSICAL EXAM: BP 120/74 Pulse 90 Temp 36.5 C (97.7 F) Resp 21 Wt 79.1 kg (174 lb 6.4 oz) LMP 02/05/2008 SpO2 95% BMI 31.90 kg/m General appearance: alert, cooperative, pleasant, in no acute distress Head: Normocephalic Eyes: EOM's intact, conjunctiva pink and moist, no icterus, sclera white, non-injected Heart: Negative. RRR without obvious murmur, gallop, or rubs. No ectopy. Lungs: clear to auscultation, without rales or wheeze, good air exchange PAST MEDICAL HISTORY Diagnosis Date Anemia 08/14/2017 Chronic insomnia 09/09/2017 Depression 11/17/2012 Elevated liver function tests 05/22/2012 Fibromyalgia Hyperlipidemia LDL goal < 100 06/26/2010 Hypoglycemia after GI (gastrointestinal) surgery 04/30/2014 Iron deficiency anemia, unspecified Iron malabsorption 12/02/2017 Irritable bowel syndrome Migraine, unspecified, without mention of intractable migraine without mention of status migrainosus Morbid obesity due to excess calories ([facility]) 12/15/2015 Polyneuropathy in other diseases classified elsewhere ([facility]) Recurrent major depression in partial remission ([facility]) 02/29/2020 Rheumatoid arthritis(714.0) Systemic lupus erythematosus arthritis ([facility]) 03/18/2014 Unspecified asthma(493.90) Unspecified hypothyroidism Vitamin B 12 deficiency 11/22/2017 Vitamin D deficiency 09/16/2012 PAST SURGICAL HISTORY Procedure Laterality Date ARTHROSCOPY KNEE DIAGNOSTIC W/WO SYNOVIAL BX SPX Arthroscopy, knee CHOLECYSTECTOMY 1992 Cholecystectomy COLONOSCOPY 1999 ESOPHAGOGASTRODUODENOSCOPY TRANSORAL DIAGNOSTIC 1994 EGD HERNIA REPAIR 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 LAPS SUPRACRV HYSTERECT 250 GM/< RMVL TUBE/OVAR 08/09 endometriosis and ovarian cysts (EDIT 03/2015 abdominal incision) PULMONARY FUNCTION TEST ALLERGIES Bactrim [Sulfamethoxazole-Trimethoprim], Benzamycin [Erythromycin-Benzoyl Peroxide], Elavil [Amitriptyline], Environmental [Other], Guiafen-Pse [Pseudoephedrine-Guaifenesin], Humira [Adalimumab], Lodine [Etodolac], Methotrexate, Neurontin [Gabapentin], Nsaids (Non-Steroidal Anti-Inflammatory Drug), Ultram [Tramadol Hcl], Vicodin [Hydrocodone-Acetaminophen], Voltaren [Diclofenac Sodium], and Zostrix-Hp [Capsaicin] MEDICATIONS [START ON 03/31/2022] oxyCODONE-acetaminophen (PERCOCET) 5-325 mg tablet Take 1 tablet by mouth every 6 hours as needed for pain for up to 30 days. Do not start before March 31, 2022. oxyCODONE-acetaminophen (PERCOCET) 5-325 mg tablet Take 1 tablet by mouth every 6 hours as needed for pain (for pain.) for up to 30 days. traZODone (DESYREL) 100 mg tablet Take 1 tablet by mouth daily at bedtime. tiZANidine (ZANAFLEX) 4 mg tablet Take 2 tablets by mouth every 6 hours as needed (muscle spasms). Zinc 50 mg tab Take 1 tablet by mouth once daily. alendronate (FOSAMAX) 70 mg tablet Take 1 tablet by mouth one time a week. Take with a full glass of water, on an empty stomach; do NOT lie down for 30minutes. DULoxetine (CYMBALTA) 60 mg capsule Take 1 capsule by mouth twice daily. topiramate (TOPAMAX) 100 mg tablet Take 2 tablets by mouth twice daily. calcium carbonate 600 mg-cholecalciferol 200 units (CALCIUM 600 + D,3,) 600 mg(1,500mg) -200 unit tab Take 1 tablet by mouth twice daily. cholecalciferol (VITAMIN D3) 5,000 unit tab Take 1 tablet by mouth once daily. LEVOXYL 88 mcg tablet Take 1 tablet by mouth once daily. Take on empty stomach. naloxone (NARCAN) 4 mg/actuation nasal spray 1 [place] by nasal (alternating) route as directed for 1 dose. 1 spray into 1 nostril. Additional doses may be given every 2-3 minutes until emergency arrives. fluticasone (FLONASE) 50 mcg/actuation nasal spray Use 2 Sprays in each nostril once daily. Rinse mouth after use. albuterol HFA (PROVENTIL HFA, VENTOLIN HFA) 90 mcg/actuation inhaler Inhale 2 Puffs as instructed every 4 hours as needed for Wheezing/Shortness of Breath. blood sugar diagnostic (ONETOUCH ULTRA TEST) test strip test once/day. DX 250.00 no insulin Blood-Glucose Meter (PhysicianPortalTOUCH ULTRA SYSTEM KIT) monitoring kit test one time daily dx 250.00 no insulin promethazine (PHENERGAN) 12.5 mg tablet Take 1 tablet by mouth every 8 hours as needed for up to 6 days. FAMILY HISTORY Problem Relation Age of Onset Asthma Mother COPD Mother Arthritis Mother rheumatoid arthritis other (Circulation) Father Emphysema Maternal Grandmother Heart Maternal Grandmother Hypertension Maternal Grandfather Diabetes Maternal Grandfather Arthritis Maternal Uncle rheumatoid arthritis Social History Tobacco Use Smoking status: Never Smoker Smokeless tobacco: Never Used Vaping Use Vaping Use: Never used Substance Use Topics Alcohol use: No Drug use: No ASSESSMENT/PLAN: 1. At increased risk of exposure to COVID-19 virus - ICD9: V15.89, ICD10: Z91.89 (primary diagnosis) - COVID WITH FLUA+B, ROUTINE 2. Acute upper respiratory infection, unspecified - ICD9: 465.9, ICD10: J06.9 - COVID WITH FLUA+B, ROUTINE Prescription instructions reviewed with patient as applicable. Potential red flag symptoms discussed with the patient. Reviewed appropriate action plan to take if red flag symptoms occur. Patient agreeable to treatment plan. Erna Kelley APRN.PRESLEY documented in this encounter [facility] 03-02-2022 History of Presen t illness Narrative CC: Patient presents with: Difficulty Urinating: decreased urination x1 day lower abd pain rated 4 HPI Paulina Mei is a 56 year old female who presents with complaint of possible UTI. These symptoms have been present for 1 days. Associated symptoms: Frequency, abdominal discomfort in middle lower abdomen, not producing a lot of urine at one time Denies: fever, chills, sweats, abdominal pain, flank pain, abnormal vaginal discharge, vaginal redness and vaginal itching Treatments: nothing The ROS was otherwise negative. PMH, Medications, labs, allergies, and recent past visits with PCP were reviewed and updated as able. PHYSICAL EXAM: BP 120/70 Pulse 76 Temp 36.6 C (97.8 F) Resp 16 Wt 79.7 kg (175 lb 12.8 oz) LMP 02/05/2008 SpO2 96% BMI 32.15 kg/m General: Well appearing and alert CV: Regular rate and rhythm without obvious murmur Lungs: clear to auscultation bilaterally Back: straight and symmetric Abdomen: soft, nontender, nondistended PAST MEDICAL HISTORY Diagnosis Date Anemia 08/14/2017 Chronic insomnia 09/09/2017 Depression 11/17/2012 Elevated liver function tests 05/22/2012 Fibromyalgia Hyperlipidemia LDL goal < 100 06/26/2010 Hypoglycemia after GI (gastrointestinal) surgery 04/30/2014 Iron deficiency anemia, unspecified Iron malabsorption 12/02/2017 Irritable bowel syndrome Migraine, unspecified, without mention of intractable migraine without mention of status migrainosus Morbid obesity due to excess calories (HCC) 12/15/2015 Polyneuropathy in other diseases classified elsewhere ([facility]) Recurrent major depression in partial remission (HCC) 02/29/2020 Rheumatoid arthritis(714.0) Systemic lupus erythematosus arthritis (HCC) 03/18/2014 Unspecified asthma(493.90) Unspecified hypothyroidism Vitamin B 12 deficiency 11/22/2017 Vitamin D deficiency 09/16/2012 PAST SURGICAL HISTORY Procedure Laterality Date ARTHROSCOPY KNEE DIAGNOSTIC W/WO SYNOVIAL BX SPX Arthroscopy, knee CHOLECYSTECTOMY 1992 Cholecystectomy COLONOSCOPY 1999 ESOPHAGOGASTRODUODENOSCOPY TRANSORAL DIAGNOSTIC 1994 EGD HERNIA REPAIR 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 LAPS SUPRACRV HYSTERECT 250 GM/< RMVL TUBE/OVAR 08/09 endometriosis and ovarian cysts (EDIT 03/2015 abdominal incision) PULMONARY FUNCTION TEST ALLERGIES Bactrim [Sulfamethoxazole-Trimethoprim], Benzamycin [Erythromycin-Benzoyl Peroxide], Elavil [Amitriptyline], Environmental [Other], Guiafen-Pse [Pseudoephedrine-Guaifenesin], Humira [Adalimumab], Lodine [Etodolac], Methotrexate, Neurontin [Gabapentin], Nsaids (Non-Steroidal Anti-Inflammatory Drug), Ultram [Tramadol Hcl], Vicodin [Hydrocodone-Acetaminophen], Voltaren [Diclofenac Sodium], and Zostrix-Hp [Capsaicin] MEDICATIONS [START ON 03/31/2022] oxyCODONE-acetaminophen (PERCOCET) 5-325 mg tablet Take 1 tablet by mouth every 6 hours as needed for pain for up to 30 days. Do not start before March 31, 2022. oxyCODONE-acetaminophen (PERCOCET) 5-325 mg tablet Take 1 tablet by mouth every 6 hours as needed for pain (for pain.) for up to 30 days. traZODone (DESYREL) 100 mg tablet Take 1 tablet by mouth daily at bedtime. ondansetron orally disintegrating (ZOFRAN ODT) 4 mg disintegrating tablet Take 1 tablet by mouth every 6 hours as needed for nausea/vomiting. tiZANidine (ZANAFLEX) 4 mg tablet Take 2 tablets by mouth every 6 hours as needed (muscle spasms). Zinc 50 mg tab Take 1 tablet by mouth once daily. alendronate (FOSAMAX) 70 mg tablet Take 1 tablet by mouth one time a week. Take with a full glass of water, on an empty stomach; do NOT lie down for 30minutes. DULoxetine (CYMBALTA) 60 mg capsule Take 1 capsule by mouth twice daily. topiramate (TOPAMAX) 100 mg tablet Take 2 tablets by mouth twice daily. LEVOXYL 88 mcg tablet Take 1 tablet by mouth once daily. Take on empty stomach. naloxone (NARCAN) 4 mg/actuation nasal spray 1 [place] by nasal (alternating) route as directed for 1 dose. 1 spray into 1 nostril. Additional doses may be given every 2-3 minutes until emergency arrives. fluticasone (FLONASE) 50 mcg/actuation nasal spray Use 2 Sprays in each nostril once daily. Rinse mouth after use. albuterol HFA (PROVENTIL HFA, VENTOLIN HFA) 90 mcg/actuation inhaler Inhale 2 Puffs as instructed every 4 hours as needed for Wheezing/Shortness of Breath. blood sugar diagnostic (ONETOUCH ULTRA TEST) test strip test once/day. DX 250.00 no insulin Blood-Glucose Meter (ONETOUCH ULTRA SYSTEM KIT) monitoring kit test one time daily dx 250.00 no insulin calcium carbonate 600 mg-cholecalciferol 200 units (CALCIUM 600 + D,3,) 600 mg(1,500mg) -200 unit tab Take 1 tablet by mouth twice daily. cholecalciferol (VITAMIN D3) 5,000 unit tab Take 1 tablet by mouth once daily. FAMILY HISTORY Problem Relation Age of Onset Asthma Mother COPD Mother Arthritis Mother rheumatoid arthritis other (Circulation) Father Emphysema Maternal Grandmother Heart Maternal Grandmother Hypertension Maternal Grandfather Diabetes Maternal Grandfather Arthritis Maternal Uncle rheumatoid arthritis Social History Tobacco Use Smoking status: Never Smoker Smokeless tobacco: Never Used Vaping Use Vaping Use: Never used Substance Use Topics Alcohol use: No Drug use: No ASSESSMENT/PLAN: 1. Decreased urination - ICD9: 788.5, ICD10: R34 - UA DIP, URINE (POC) - URINE CULTURE No treatment at this time. Sending culture will treat if culture is positive. . Potential red flag symptoms discussed with the patient. Reviewed appropriate action plan to take if red flag symptoms occur she will go to the ER. Patient agreeable to treatment plan. Erna Kelley APRN.SUPERVISOR INSTRUMENT MAINTENANCE documented in this encounter [facility] 03-01-2022 Note HNO ID: [id number] Author: Eunice Olivarez APRN.CNP Service: ? Author Type: Nurse Practitioner Type: Progress Notes Filed: 03/04/2022 9:19 AM Note Text: [facility] [place] [facility] Today's Date: 03/01/2022 Last Visit: 11/23/[address] Beltran Name: Paulina Mei : 1965 Purpose: Established Patient Encounter Interval History: Since last encounter, Paulina Mei; PMH significant for FM, HTN, HPL, peripheral neuropathy, asthma, GERD, IBS, thyroid, RA, OA, lupus, anxiety, depression, osteoporosis; reports that the chronic problem(s) of diffuse body aches and pains are Better. No new or worsening concerns today. PCP did recently give her medrol dose pack recently due to increased knee pain, but his is doing better now. She is scheduled to establish with a [facility] on 03/27/22 Recall Last OV 11/23/21: Dr. Beltran discussed: Encouraged to establish with a [facility]. Her pain may be better controlled as her inflammatory conditions are monitored and management is optimized. Advised to attend. Explained that if she continues to be noncompliant with her plan of care, not attending recommended evaluations, not having recommended tests, not bringing her bottle to appointment, not presenting for UDS, that we would not be able to continue writing her for opioids Advised that she talk with her PCP about a psychology referral to discuss coping strategies due to pain and possibly for depression - Pain Description: o Timing: constant o Character: Aching and Dull o Primary Location: Diffuse joint aches and pains o Radiation: None o Exacerbating factors: sedentary activity o Relieving factors: medications, heat and low impact activity o The patient reports 3 hours of uninterrupted sleep per night o The patient denies difficulty with bowel or bladder control, unintentional weight loss, fevers, chills, or night sweats and arm or leg weakness. - New Problems reported: None Recall: Patient of Dr. Beltran Current Status: INTAKE PAIN ASSESSMENT 12/23/2021 03/01/2022 Are you having pain associated with your visit today? 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 Yes - Taking the medications as prescribed? Yes - Getting pain medications from another physician? No - Obtaining pain medication from another source? No - Sharing medications with friends/family? No - Quality of life improved as a result of taking these medications? Yes - Any side effect with this medication? No Justification for Continued Opioid Care: - Adequate analgesia? Yes - Aberrant drug seeking behavior? No - Adverse reactions? No - Medications improve quality of life? Yes Allergies: ALLERGIES Allergen Reactions - Bactrim [Sulfametho* GI Upset diarrhea - Benzamycin [Erythro* Intolerance Gastric upset - Elavil [Amitriptyli* GI Upset nausea - Environmental [Othe* cats - Guiafen-Pse [Pseudo* Diarrhea - Humira [Adalimumab] Rash hair loss - Lodine [Etodolac] GI Upset - Methotrexate Other: See Comments SANDY - Neurontin [Gabapent* - Nsaids (Non-Steroid* Other: See Comments high risk of peptic ulcer disease (s/p gastric bypass) - Ultram [Tramadol Hc* Diarrhea - Vicodin [Hydrocodon* Mental Status Change - Voltaren [Diclofena* sedation - Zostrix-Hp [Capsaic* Data Reviewed: - Reviewed personally on today's date 03/01/2022 Relevant Imaging: MRI Spine Report MRI LUMBAR SPINE WO IVCON Collected: 08/09/2017 3:07 PM (Final result) Narrative: * * *Final Report* * * DATE OF EXAM: Aug 09 2017 3:07PM [facility]M [id number] - MRI LUMBAR SPINE WO IVCON / PROCEDURE REASON: Radiculopathy, lumbar region * * * * Physician Interpretation * * * * HISTORY: Low back pain with radiculopathy. COMPARISON: None. EXAMINATION: Routine lumbosacral spine protocol without gadolinium. RESULTS: Counting reference: Lumbosacral junction. For the purposes of this report, L4/5 is the level o (more content not included)... [facility] 03-01-2022 Note HNO ID: [id number] Author: Michaela Vela MA Service: ? Author Type: Production Control Coordinator Type: Progress Notes Filed: 03/04/2022 9:19 AM Note Text: Review of Systems Constitutional: Negative for activity change, chills, fever and unexpected weight change. Gastrointestinal: Negative for bowel retention or incontinence Genitourinary: Negative for difficulty urinating. Negative for bladder retention or incontinence Musculoskeletal: Positive for arthralgias, back pain, gait problem, joint swelling and myalgias. Negative for neck pain and neck stiffness. Neurological: Positive for headaches. Negative for weakness and numbness. Psychiatric/Behavioral: Positive for sleep disturbance. Negative for dysphoric mood and suicidal ideas. The patient is not nervous/anxious. [facility] 02-02-2022 Miscellaneous Notes Pt. informed. Tanya Vyas LPN Phone call placed, brief message to contact a nurse. Sofy Chaparro LPN Yes, Report on progress in 2 weeks please. The following approved medication requests have been transmitted electronically. Signed Prescriptions Disp Refills traZODone (DESYREL) 100 mg tablet 90 tablet 1 Sig: Take 1 tablet by mouth daily at bedtime. Authorizing Provider: Jocelyn WOLFF PA-C Patient calling to ask if PCP would be willing to increase dose of Trazodone? She states she is having trouble both falling asleep and staying asleep. Samira Villareal, RN documented in this encounter [facility] 01-04-2022 Miscellaneous Notes I will mychart her. Dru Wolff PA-C Patient is very upset and needs something for insomnia. Patient does not agree with not getting medication for insomnia and thinks this is very unfair. Patient is aware that Ambien and Ativan are short term and are not to be ad terminal makeup operator. Patient is angry an said that Dr. Arnold would of never done this and I did inform patient that providers are not going to treat with same medication as past provider. Patient is willing to try any medication for insomnia as where if she does not have something can not sleep for days. Please advise would you like to refer to sleep med? Kenzie Figueroa Ma Yes, I would like her to try not taking anything to sleep. The ativan is not a ad terminal makeup operator option. Sedatives interfere with restorative sleep and are not recommended. Thanks, Dru Wolff PA-C Patient calling asking what is to be taking for sleep? She said I did not get a refill on the Lorazepam. Went over previous phone message with her. Patient said we were going to do a trial on the lorazepam and it is working. Patient said so I am not to take anything to sleep? Patient uses [facility] for her pharmacy. Aware PA is out of office on Saturday. Please advise documented in this encounter [facility] 01-02-2022 Miscellaneous Notes Pt notified. She verbalized understanding. Rahul Andre LPN The prescription is only meant to cover the withdrawal period from Ambien. It is not a long-term option. The goal is to reduce medication. Thanks, Dru Wolff PA-C Pt calls to report that lorazepam 0.5 mg 2 tabs at night helped her sleep. Pt reports she tried 1 tab at first but that did not work. Pt is asking for a rx for lorazepam 0.5 -2 tabs at bedtime. Please review and advise. Kathryn Stauffer LPN documented in this encounter [facility] 12-29-2021 Miscellaneous Notes Patient notified. Okay, stop Ambien. Start Ativan 0.5mg at HS x 1 week only. May take a second tablet if needed during that week. The following approved medication requests have been transmitted electronically. Signed Prescriptions Disp Refills LORazepam (ATIVAN) 0.5 mg 14 tablet 0 Si -2 tabs a night as needed for sleep NGHIA Class: C-IV Authorizing Provider: Jocelyn WOLFF PA-C Patient returned call and given provider's message. Patient states she is willing to try something else as long as it helps her sleep. Called and left message As discussed at visit, I think she would be better off medication if she is willing to try. She was confused on medication which led to fall. As we discussed, she would have to stop the medication for a week for the rebound insomnia to resolve. I could give her something else in the interim if she is willing. Thanks, Dru Wolff PA-C Patient calling to say [facility] tells her she cannot get a refill of Ambien until January 05 and she is asking if PCP will contact pharmacy to approve early refill. She states she is taking Ambien nightly and needs 30 pills/month. Samira Villareal, RN documented in this encounter [facility] 12-26-2021 History of Presen t illness Narrative Radiology Service Progress Note PATIENT NAME: Paulina Mei DATE OF SERVICE: December 26, 2021 TIME: 1:43 PM PATIENT IDENTITY VERIFICATION COMPLETED USING TWO (2) IDENTIFIERS: Name and Date of confirmed by patient verbally. FALL SCREENING: Has the patient had 2 falls in the last year or 1 fall with injury or currently using an Ambulatory Assistive Device (Walker, Cane, Wheelchair, Crutches, etc.)? Yes, Patient High Risk for Falls What interventions were put in place to prevent falls during this visit? Increased Observations by Caregivers PATIENT GENDER DATA: Female. status: : No status: NO. PATIENT RELEVANT IMPLANT DATA REVIEWED: Yes RADIOLOGY DEPARTMENT: General X-ray: Exam(s) Completed: Lower Extremity X-Ray(s): Knee, AP / Lat / Tunne / Merchant Right and Wt. Bearing PERIPHERAL IV DATA: Not applicable SIGNED BY: RT Mitzy(R) December 26, 2021 1:43 PM documented in this encounter [facility] 12-26-2021 History of Presen t illness Narrative 56 year old female with c/o Took Ambien, was disoriented on getting up 6 weeks ago. Fell against wall and fell somehow onto floor. Sister found her face down. No LOC. Hit top of head and face on floor. Able to put weight on it but painful. Only gets up when absolutely necessary,. Has had vomiting and diarrhea over last week. Last emesis 2 days. No BM In last day. Feels like head is whooshing when up and moving. Not syncopal of blacking out. Had rx phoned in for Zofran which helped but only 8 tabs, asking for additional Taking liquids well, soft foods. HISTORIES FAMILY HISTORY Problem Relation Age of Onset Asthma Mother COPD Mother Arthritis Mother rheumatoid arthritis other (Circulation) Father Emphysema Maternal Grandmother Heart Maternal Grandmother Hypertension Maternal Grandfather Diabetes Maternal Grandfather Arthritis Maternal Uncle rheumatoid arthritis PAST MEDICAL HISTORY Diagnosis Date Anemia 08/14/2017 Chronic insomnia 09/09/2017 Depression 11/17/2012 Elevated liver function tests 05/22/2012 Fibromyalgia Hyperlipidemia LDL goal < 100 06/26/2010 Hypoglycemia after GI (gastrointestinal) surgery 04/30/2014 Iron deficiency anemia, unspecified Iron malabsorption 12/02/2017 Irritable bowel syndrome Migraine, unspecified, without mention of intractable migraine without mention of status migrainosus Morbid obesity due to excess calories (HCC) 12/15/2015 Polyneuropathy in other diseases classified elsewhere (HCC) Recurrent major depression in partial remission ([facility]) 02/29/2020 Rheumatoid arthritis(714.0) Systemic lupus erythematosus arthritis (HCC) 03/18/2014 Unspecified asthma(493.90) Unspecified hypothyroidism Vitamin B 12 deficiency 11/22/2017 Vitamin D deficiency 09/16/2012 PAST SURGICAL HISTORY Procedure Laterality Date ARTHROSCOPY KNEE DIAGNOSTIC W/WO SYNOVIAL BX SPX Arthroscopy, knee CHOLECYSTECTOMY 1992 Cholecystectomy COLONOSCOPY 1999 ESOPHAGOGASTRODUODENOSCOPY TRANSORAL DIAGNOSTIC 1994 EGD HERNIA REPAIR 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 LAPS SUPRACRV HYSTERECT 250 GM/< RMVL TUBE/OVAR 08/09 endometriosis and ovarian cysts (EDIT 03/2015 abdominal incision) PULMONARY FUNCTION TEST Social History Tobacco Use Smoking status: Never Smoker Smokeless tobacco: Never Used Vaping Use Vaping Use: Never used Substance Use Topics Alcohol use: No Drug use: No ACTIVE PROBLEM LIST Irritable Bowel Syndrome Hypothyroidism Photosensitivity Disorder Hyperlipidemia With Target Ldl Less Than 100 Vitamin D Deficiency Fibromyalgia Rheumatoid Arthritis Involving Multiple Sites ([facility]) Chronic Migraine Without Aura Without Status Migrainosus, Not Intractable Mild Intermittent Asthma Without Complication Insomnia Secondary to Anxiety Morbid Obesity Due to Excess Calories (Hcc) History of Gastric Bypass Gastroesophageal Reflux Disease Meralgia Paresthetica, Right Lower Limb Ddd (Degenerative Disc Disease), Lumbar Anemia Primary Osteoarthritis of Both Knees Vitamin B 12 Deficiency Iron Malabsorption Zinc Deficiency Vitamin B6 Deficiency Lurer Prescription Opiate Use Sandy (Nonalcoholic Steatohepatitis) Idiopathic Peripheral Neuropathy Recurrent Major Depression in Partial Remission (Hcc) Spinal Stenosis, Lumbar Region With Neurogenic Claudication Other Osteoporosis Without Current Pathological Fracture Current Outpatient Medications Medication Sig Dispense Refill ondansetron orally disintegrating (ZOFRAN ODT) 4 mg disintegrating tablet Take 1 tablet by mouth every 12 hours as needed for nausea/vomiting for up to 4 days. 8 tablet 0 tiZANidine (ZANAFLEX) 4 mg tablet Take 2 tablets by mouth every 6 hours as needed (muscle spasms). 240 tablet 1 traZODone (DESYREL) 50 mg tablet Take 1.5 tablets by mouth daily at bedtime. 45 tablet 2 Zinc 50 mg tab Take 1 tablet by mouth once daily. 90 tablet 3 alendronate (FOSAMAX) 70 mg tablet Take 1 tablet by mouth one time a week. Take with a full glass of water, on an empty stomach; do NOT lie down for 30minutes. 12 tablet 3 [START ON 01/11/2022] oxyCODONE-acetaminophen (PERCOCET) 5-325 mg tablet Take 1 tablet by mouth every 6 hours as needed for pain for up to 30 days. Do not start before January 11, 2022. 120 tablet 0 oxyCODONE-acetaminophen (PERCOCET) 5-325 mg tablet Take 1 tablet by mouth every 6 hours as needed for pain for up to 30 days. Do not start before December 12, 2021. 120 tablet 0 zolpidem (AMBIEN) 10 mg Take 1 tablet by mouth at bedtime as needed (insomnia) for up to 180 days. 20 tablet 5 DULoxetine (CYMBALTA) 60 mg capsule Take 1 capsule by mouth twice daily. 60 capsule 5 topiramate (TOPAMAX) 100 mg tablet Take 2 tablets by mouth twice daily. 120 tablet 2 calcium carbonate 600 mg-cholecalciferol 200 units (CALCIUM 600 + D,3,) 600 mg(1,500mg) -200 unit tab Take 1 tablet by mouth twice daily. 60 tablet 2 cholecalciferol (VITAMIN D3) 5,000 unit tab Take 1 tablet by mouth once daily. 30 tablet 2 LEVOXYL 88 mcg tablet Take 1 tablet by mouth once daily. Take on empty stomach. 90 tablet 0 naloxone (NARCAN) 4 mg/actuation nasal spray 1 [place] by nasal (alternating) route as directed for 1 dose. 1 spray into 1 nostril. Additional doses may be given every 2-3 minutes until emergency arrives. 1 Each 0 fluticasone (FLONASE) 50 mcg/actuation nasal spray Use 2 Sprays in each nostril once daily. Rinse mouth after use. 1 Bottle 0 albuterol HFA (PROVENTIL HFA, VENTOLIN HFA) 90 mcg/actuation inhaler Inhale 2 Puffs as instructed every 4 hours as needed for Wheezing/Shortness of Breath. 1 Inhaler 11 blood sugar diagnostic (ONETOUCH ULTRA TEST) test strip test once/day. DX 250.00 no insulin 1 Bottle 11 Blood-Glucose Meter (ONETOUCH ULTRA SYSTEM KIT) monitoring kit test one time daily dx 250.00 no insulin 1 Each 0 No current facility-administered medications for this visit. SPIROMETRY Never done HIV SCREENING Never done DTAP,TDAP,TD(2 - Tdap) due on 01/11/2009 COLORECTAL CANCER SCREENING Never done MAMMOGRAM due on 01/21/2015 EXAM: BP 122/84 Pulse 96 Resp 18 LMP 02/05/2008 SpO2 97% Pleasant overweight adult woman, non-toxic in appearance. Alert and oriented all spheres. Normal affect and cognition. Speech normal. No deficits to learning or comprehension. Skin warm, dry, pink to lips and nailbeds. Normal turgor. Respirations regular and unlabored. Speaking wasily in full sentences. HEENT: NCAT. No scleral icterus or conjunctival injection. TM's clear. Nose and oropharynx free from injection or lesion. Oral membranes moist and pink. No cervical lymph nodes. Chest is normal shape. Lungs are clear to all galvan with good air exchange through out. HRRR without murmur or gallop. No lifts, heaves, or rubs. Right knee does appear slightly more swollen lateral anterior than left. Tender over LCL, patellar ligament. No pain with varus or valgus deviation. Negative bounce. Very mild popliteal swelling. Extrem: no clubbing or cyanosis. Edema: none. Extremities are warm and pink with prompt capillary refill. Right foot with bleeding calluses undermined edges. XR: no fracture, significant joint space loss> on L. No fracture visible pending radiologist. ASSESSMENT/PLAN: 1. Injury of right knee, initial encounter - ICD9: 959.7, ICD10: S89.91XA (primary diagnosis) Has significant mobility issues due to arthritis deformities in feet with atrophy - STANDARD WHEELCHAIR - DME SUPPLY OR ACCESSORY, NOS 2. Chronic insomnia - ICD9: 780.52, ICD10: F51.04 Again discussed recommendations to reduce and stop. Discussed rebound insomnia which takes about a week to get through. - ZOLPIDEM 10 MG TABLET 3. Sprain of lateral collateral ligament of right knee, initial encounter - ICD9: 844.0, ICD10: S83.421A Rest, ice, elevation reviewed. Rx for action brace for support Mobility makes bathroom access difficult. Will send in raised toilet seat. - DME SUPPLY OR ACCESSORY, NOS 4. Knee effusion, right - ICD9: 719.06, ICD10: M25.461 - PREDNISONE 20 MG TABLET - DME SUPPLY OR ACCESSORY, NOS 5. Pre-ulcerative calluses - ICD9: 700, ICD10: L84 - CONSULT TO PODIATRY 6. Rheumatoid arthritis involving multiple sites with positive rheumatoid factor (HCC) - ICD9: 714.0, ICD10: M05.79 7. Vomiting and diarrhea - ICD9: 787.03, 787.91, ICD10: R11.10, R19.7 Mild dehydration. Take Zofran, push fluids to 2000ml daily which should resolve issues. Notify if not improving. - ONDANSETRON 4 MG DISINTEGRATING TABLET Jocelyn Wolff PA-C documented in this encounter [facility] 12-23-2021 History of Presen t illness Narrative Images from the original note were not included. Subjective Patient came in with complaints of right knee pain. Patient said she fell on it and has had pain every since slowing increasing. Said today she woke up and just couldn't take the pain anymore at this time. 06/11. Said she noticed some swelling the last couple days as well. Said any type of range of motions causes pain. The history is provided by the patient. No word processor technician was used. Review of Systems Constitutional: Negative. Skin: Negative. Objective Physical Exam Constitutional: Appearance: Normal appearance. Cardiovascular: Pulses: Normal pulses. Musculoskeletal: Legs: Comments: Patient has pain in area marked above. Mild amount of selling noted. Neurological: Mental Status: She is alert. PAST MEDICAL HISTORY Diagnosis Date Anemia 08/14/2017 Chronic insomnia 09/09/2017 Depression 11/17/2012 Elevated liver function tests 05/22/2012 Fibromyalgia Hyperlipidemia LDL goal < 100 06/26/2010 Hypoglycemia after GI (gastrointestinal) surgery 04/30/2014 Iron deficiency anemia, unspecified Iron malabsorption 12/02/2017 Irritable bowel syndrome Migraine, unspecified, without mention of intractable migraine without mention of status migrainosus Morbid obesity due to excess calories ([facility]) 12/15/2015 Polyneuropathy in other diseases classified elsewhere ([facility]) Recurrent major depression in partial remission (HCC) 02/29/2020 Rheumatoid arthritis(714.0) Systemic lupus erythematosus arthritis (HCC) 03/18/2014 Unspecified asthma(493.90) Unspecified hypothyroidism Vitamin B 12 deficiency 11/22/2017 Vitamin D deficiency 09/16/2012 PAST SURGICAL HISTORY Procedure Laterality Date ARTHROSCOPY KNEE DIAGNOSTIC W/WO SYNOVIAL BX SPX Arthroscopy, knee CHOLECYSTECTOMY 1992 Cholecystectomy COLONOSCOPY 1999 ESOPHAGOGASTRODUODENOSCOPY TRANSORAL DIAGNOSTIC 1994 EGD HERNIA REPAIR 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 LAPS SUPRACRV HYSTERECT 250 GM/< RMVL TUBE/OVAR 08/09 endometriosis and ovarian cysts (EDIT 03/2015 abdominal incision) PULMONARY FUNCTION TEST ALLERGIES Bactrim [Sulfamethoxazole-Trimethoprim], Benzamycin [Erythromycin-Benzoyl Peroxide], Elavil [Amitriptyline], Environmental [Other], Guiafen-Pse [Pseudoephedrine-Guaifenesin], Humira [Adalimumab], Lodine [Etodolac], Methotrexate, Neurontin [Gabapentin], Nsaids (Non-Steroidal Anti-Inflammatory Drug), Ultram [Tramadol Hcl], Vicodin [Hydrocodone-Acetaminophen], Voltaren [Diclofenac Sodium], and Zostrix-Hp [Capsaicin] MEDICATIONS tiZANidine (ZANAFLEX) 4 mg tablet Take 2 tablets by mouth every 6 hours as needed (muscle spasms). traZODone (DESYREL) 50 mg tablet Take 1.5 tablets by mouth daily at bedtime. Zinc 50 mg tab Take 1 tablet by mouth once daily. alendronate (FOSAMAX) 70 mg tablet Take 1 tablet by mouth one time a week. Take with a full glass of water, on an empty stomach; do NOT lie down for 30minutes. [START ON 01/11/2022] oxyCODONE-acetaminophen (PERCOCET) 5-325 mg tablet Take 1 tablet by mouth every 6 hours as needed for pain for up to 30 days. Do not start before January 11, 2022. oxyCODONE-acetaminophen (PERCOCET) 5-325 mg tablet Take 1 tablet by mouth every 6 hours as needed for pain for up to 30 days. Do not start before December 12, 2021. zolpidem (AMBIEN) 10 mg Take 1 tablet by mouth at bedtime as needed (insomnia) for up to 180 days. DULoxetine (CYMBALTA) 60 mg capsule Take 1 capsule by mouth twice daily. topiramate (TOPAMAX) 100 mg tablet Take 2 tablets by mouth twice daily. calcium carbonate 600 mg-cholecalciferol 200 units (CALCIUM 600 + D,3,) 600 mg(1,500mg) -200 unit tab Take 1 tablet by mouth twice daily. cholecalciferol (VITAMIN D3) 5,000 unit tab Take 1 tablet by mouth once daily. LEVOXYL 88 mcg tablet Take 1 tablet by mouth once daily. Take on empty stomach. naloxone (NARCAN) 4 mg/actuation nasal spray 1 [place] by nasal (alternating) route as directed for 1 dose. 1 spray into 1 nostril. Additional doses may be given every 2-3 minutes until emergency arrives. fluticasone (FLONASE) 50 mcg/actuation nasal spray Use 2 Sprays in each nostril once daily. Rinse mouth after use. albuterol HFA (PROVENTIL HFA, VENTOLIN HFA) 90 mcg/actuation inhaler Inhale 2 Puffs as instructed every 4 hours as needed for Wheezing/Shortness of Breath. blood sugar diagnostic (ONETOUCH ULTRA TEST) test strip test once/day. DX 250.00 no insulin Blood-Glucose Meter (PhysicianPortalTOUCH ULTRA SYSTEM KIT) monitoring kit test one time daily dx 250.00 no insulin ondansetron orally disintegrating (ZOFRAN ODT) 4 mg disintegrating tablet Take 1 tablet by mouth every 12 hours as needed for nausea/vomiting for up to 4 days. zolpidem (AMBIEN) 5 mg tablet Alternate 1 tab every other day with 2 tabs as needed for sleep (weaning to 5mg qHS) FAMILY HISTORY Problem Relation Age of Onset Asthma Mother COPD Mother Arthritis Mother rheumatoid arthritis other (Circulation) Father Emphysema Maternal Grandmother Heart Maternal Grandmother Hypertension Maternal Grandfather Diabetes Maternal Grandfather Arthritis Maternal Uncle rheumatoid arthritis Social History Tobacco Use Smoking status: Never Smoker Smokeless tobacco: Never Used Vaping Use Vaping Use: Never used Substance Use Topics Alcohol use: No Drug use: No ASSESSMENT/PLAN: 1. Acute pain of right knee - ICD9: 719.46, ICD10: M25.561 - XR KNEE GENERAL 4V AP BOTH/PA BOTH/LAT/MERC RIGHT At this time we have no xray on site. patient will come back Saturday for xray and care plan will be devised at this time. Patient was okay with this. Erna Kelley APRN.PRESLEY documented in this encounter [facility] 12-06-2021 History of Presen t illness Narrative POPULATION HEALTH NAVIGATION OUTREACH Action/FYI Spoke with Paulina, Scheduled AMW and Mamms. LVM Health Maintenance items due: ANNUAL MEDICARE WELLNESS COLORECTAL CANCER SCREENING Never done MAMMOGRAM due on 01/21/2015 Pt identified by name and : YES, via phone Outreach Outcome/Action Spoke to patient or caregiver: Patient scheduled Unable to reach patient: Left message Reason for Outreach Care Gap or Scheduling/Wellness visits Payer: Payor: MEDICARE / Plan: MEDICARE A AND B / Product Type: Medicare / Care Gap Reviewed:: Annual Wellness visit Breast Cancer screening Controlling Blood Pressure Reminder: Reminder note to check Health Maintenance for items below Health Maintenance items due: SPIROMETRY Never done HIV SCREENING Never done DTAP,TDAP,TD(2 - Tdap) due on 01/11/2009 COLORECTAL CANCER SCREENING Never done MAMMOGRAM due on 01/21/2015 Message Sent to Practice: No Navigation Signature: Shakira Mattson MA December 06, 2021 12:49 PM documented in this encounter [facility] 12-04-2021 Miscellaneous Notes The following approved medication requests have been transmitted electronically. Signed Prescriptions Disp Refills tiZANidine (ZANAFLEX) 4 mg tablet 240 tablet 1 Sig: Take 2 tablets by mouth every 6 hours as needed (muscle spasms). JAMARI: No Authorizing Provider: Jocelyn WOLFF PA-C Patient has been identified by name and date of : Yes Pending Prescriptions Disp Refills TIZANIDINE 4 MG TABLET 240 tablet 2 Sig: Take 2 tablets by mouth every 6 hours as needed (muscle spasms). JAMARI: No RX INSTRUCTIONS: Patient aware RX will be sent to pharmacy. No need to notify patient. Barbie Kelley MA Ge: 09/2021 Nov: 03/2022 Last refill: 09/14/2021 240 tablets; 2 refills. documented in this encounter [facility] 11-27-2021 History of Presen t illness Narrative Radiology Service Progress Note PATIENT NAME: Paulina Mei DATE OF SERVICE: November 27, 2021 TIME: 2:37 PM PATIENT IDENTITY VERIFICATION COMPLETED USING TWO (2) IDENTIFIERS: Name and Date of confirmed by patient verbally. FALL SCREENING: Has the patient had 2 falls in the last year or 1 fall with injury or currently using an Ambulatory Assistive Device (Walker, Cane, Wheelchair, Crutches, etc.)? No PATIENT GENDER DATA: Female. status: : No status: NO. PATIENT RELEVANT IMPLANT DATA REVIEWED: Not Applicable RADIOLOGY DEPARTMENT: Bone Density PERIPHERAL IV DATA: Not applicable SIGNED BY: RT Braxton(R) November 27, 2021 2:37 PM documented in this encounter [facility] 11-23-2021 Note HNO ID: [id number] Author: Yajaira Morgan MA Service: ? Author Type: Production Control Coordinator Type: Progress Notes Filed: 11/23/2021 2:29 PM Note Text: Review of Systems Constitutional: Negative for activity change, chills, fever and unexpected weight change. Genitourinary: Negative for difficulty urinating. Musculoskeletal: Positive for arthralgias, gait problem, joint swelling, myalgias and neck stiffness. Negative for back pain and neck pain. Neurological: Positive for weakness. Negative for numbness and headaches. Psychiatric/Behavioral: Positive for sleep disturbance. Negative for dysphoric mood and suicidal ideas. The patient is not nervous/anxious. [facility] 11-23-2021 Note HNO ID: [id number] Author: Faye Beltran MD Service: ? Author Type: Physician Type: Progress Notes Filed: 11/23/2021 2:29 PM Note Text: [facility] Name: Paulina Mei : 1965 Purpose: Follow-Up Evaluation Today's Date: 11/23/2021 - Most recent visit date: 08/10/2021 Chief Complaint (reason for call): diffuse body aches and pains Interval History: Since last encounter, Paulina Mei reports that the chronic problem(s) of diffuse body aches and pains are worse. When she has flare-ups, it impacts all her involved joints, including the shoulders, hands, feet and knees. Pain particularly bad at night. She is no longer taking daily steroids. She has not reestablished with a Hairspring Studder. Bone density scan was ordered, not obtained. In both cases, she reports that she cannot physically attend treatments due to her pain. She did not bring her pill bottles today. She reports again that when she takes the Percocet, it is not strong enough and that it wears off quickly. She reports that she was not told to come in for her drug screen in October. Cymbalta increased from 60mg daily to BID, no difference noted. She reports that she fell recently and hurt her knees. Her PCP decreased her Ambien. Recall: She has been diagnosed with peripheral neuropathy by Electrodiagnostic Study. HPI from 06/2021: Paulina Mei is a 55 year old female who presents for new patient evaluation joint pain. Patient has a longstanding history of rheumatoid arthritis. She is followed with [facility] rheumatology in the past last being about 3 years ago. She states she has been on Biologics injections and is trialed medications with that specialty with no relief in her pain. Patient reports generalized joint pain shoulders hands and feet and knees. She is currently following with orthopedist for her left knee pain they are discussing a knee replacement however she has to see a new specialist for her surgery. 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 She reports she is on daily steroids from her PCP. She reports her pain is currently controlled with her Percocet 5 mg tablets that she takes 4 times a day. This was a recent increase from 3 times a day only because she has had increased left knee pain. When asking for an increase with her family doctor they referred her here to evaluate for other alternatives. Patient reports that Percocet 4 times a day does reduce her pain however she is still and significant pain throughout the day. Patient denies any new falls or injuries. She denies any cervical or lumbar pain. She denies using any assistive devices with her ambulation. She is inquiring about pain medications today. Impression: 55 year old female with significant past medical history rheumatoid arthritis, osteoarthritis, lupus, and fibromyalgia who presents with complaint(s) of generalized joint pain most notably in her knees left greater than right. She also has hand and feet pain bilaterally with deformities present. Patient is currently on Percocet 5 #120 from PCP. She was sent to discuss increase in her medications. This recent increase to #120 does help control her pain a little better however she reports still having severe pain during the day. We discussed a possible rotation to [place] in the future. However I had like for her to meet with attending physician Dr. Beltran to further discuss her medication management as she is on several other classes of medications it is concerning for oversedation. She is currently on tizanidine, she is on trazodone and Ambien for sleep aids, neuropathic's to include Topamax, Cymbalta. Today I will refill her Percocet dosing that she is currently on she will also receive a prescription for Narcan as we discussed the purpose and the use of this device. Current Status: Opioid Medications requiring refills today: Percocet 5/325 Date last filled: 11/12/2021 Quantity filled: 120 How many left: Unknown Time most recent dose taken: Noon today Non-Opioid Medications requiring refills today: Cymbalta 60mg BID Topamax 100mg BID (PCP) Zanaflex 4mg 2-3 times daily PRN (PCP) Ibuprofen OTC - uses sparingly Compliance: Safety Checklist: - Are you taking proper precautions to safe guard your medication? Yes - Taking the medications as prescribed? Yes - Getting pain medications from another physician? No - Obtaining pain medication from another source? No - Sharing medications with friends/family? No - Quality of life improved as a result of taking these medications? Yes - Any side effect with this medication? No Justification for Continued Opioid Care: - Adequate analgesia? Yes - Aberrant drug seeking behavior? No - Adverse reactions? No - Medications improve quality of life? Yes Functional Goals: To remain active and independent Compliance: PDMP w (more content not included)... [facility] 11-23-2021 Miscellaneous Notes Sent in consult to Rheumatology, the confirmation number is [id number]. documented in this encounter [facility] 11-23-2021 History of Presen t illness Narrative Review of Systems Constitutional: Negative for activity change, chills, fever and unexpected weight change. Genitourinary: Negative for difficulty urinating. Musculoskeletal: Positive for arthralgias, gait problem, joint swelling, myalgias and neck stiffness. Negative for back pain and neck pain. Neurological: Positive for weakness. Negative for numbness and headaches. Psychiatric/Behavioral: Positive for sleep disturbance. Negative for dysphoric mood and suicidal ideas. The patient is not nervous/anxious. Images from the original note were not included. [facility] Name: Paulina Mei : 1965 Purpose: Follow-Up Evaluation Today's Date: 11/23/2021 Most recent visit date: 08/10/2021 Chief Complaint (reason for call): diffuse body aches and pains Interval History: Since last encounter, Paulina eMi reports that the chronic problem(s) of diffuse body aches and pains are worse. When she has flare-ups, it impacts all her involved joints, including the shoulders, hands, feet and knees. Pain particularly bad at night. She is no longer taking daily steroids. She has not reestablished with a Hairspring Studder. Bone density scan was ordered, not obtained. In both cases, she reports that she cannot physically attend treatments due to her pain. She did not bring her pill bottles today. She reports again that when she takes the Percocet, it is not strong enough and that it wears off quickly. She reports that she was not told to come in for her drug screen in October. Cymbalta increased from 60mg daily to BID, no difference noted. She reports that she fell recently and hurt her knees. Her PCP decreased her Ambien. Recall: She has been diagnosed with peripheral neuropathy by Electrodiagnostic Study. HPI from 06/2021: Paulina Mei is a 55 year old female who presents for new patient evaluation joint pain. Patient has a longstanding history of rheumatoid arthritis. She is followed with [facility] rheumatology in the past last being about 3 years ago. She states she has been on Biologics injections and is trialed medications with that specialty with no relief in her pain. Patient reports generalized joint pain shoulders hands and feet and knees. She is currently following with orthopedist for her left knee pain they are discussing a knee replacement however she has to see a new specialist for her surgery. 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 She reports she is on daily steroids from her PCP. She reports her pain is currently controlled with her Percocet 5 mg tablets that she takes 4 times a day. This was a recent increase from 3 times a day only because she has had increased left knee pain. When asking for an increase with her family doctor they referred her here to evaluate for other alternatives. Patient reports that Percocet 4 times a day does reduce her pain however she is still and significant pain throughout the day. Patient denies any new falls or injuries. She denies any cervical or lumbar pain. She denies using any assistive devices with her ambulation. She is inquiring about pain medications today. Impression: 55 year old female with significant past medical history rheumatoid arthritis, osteoarthritis, lupus, and fibromyalgia who presents with complaint(s) of generalized joint pain most notably in her knees left greater than right. She also has hand and feet pain bilaterally with deformities present. Patient is currently on Percocet 5 #120 from PCP. She was sent to discuss increase in her medications. This recent increase to #120 does help control her pain a little better however she reports still having severe pain during the day. We discussed a possible rotation to [place] in the future. However I had like for her to meet with attending physician Dr. Beltran to further discuss her medication management as she is on several other classes of medications it is concerning for oversedation. She is currently on tizanidine, she is on trazodone and Ambien for sleep aids, neuropathic's to include Topamax, Cymbalta. Today I will refill her Percocet dosing that she is currently on she will also receive a prescription for Narcan as we discussed the purpose and the use of this device. Current Status: Opioid Medications requiring refills today: Percocet 5/325 Date last filled: 11/12/2021 Quantity filled: 120 How many left: Unknown Time most recent dose taken: Noon today Non-Opioid Medications requiring refills today: Cymbalta 60mg BID Topamax 100mg BID (PCP) Zanaflex 4mg 2-3 times daily PRN (PCP) Ibuprofen OTC - uses sparingly Compliance: Safety Checklist: Are you taking proper precautions to safe guard your medication? Yes Taking the medications as prescribed? Yes Getting pain medications from another physician? No Obtaining pain medication from another source? No Sharing medications with friends/family? No Quality of life improved as a result of taking these medications? Yes Any side effect with this medication? No Justification for Continued Opioid Care: Adequate analgesia? Yes Aberrant drug seeking behavior? No Adverse reactions? No Medications improve quality of life? Yes Functional Goals: To remain active and independent Compliance: PDMP website checked and validated. All prescriptions have been APPROPRIATELY filled. No suspicious activity was identified. by Faye Beltran MD 11/23/2021 [place] Last Drug screen: 06/2021 and appropriate for oxycodone metabolites Pain Medications Taken to Date (for the chief complaint): Membrane Stabilizers: Neurontin (Gabapentin), Lyrica (Pregabalin), Cymbalta (Duloxetine), Elavil (Amitriptyline) and Topamax (Topiramate) - intolerance to Neurontin, Lyrica and Elavil NSAIDS: Motrin (Ibuprofen), Naprosyn (Naproxen), Voltaren (Diclofenac), Mobic (Meloxicam), Lodine (Etodolac) and Relafen (Nabumetone) - Gastric bypass Opioids: Tramadol, Vicodin or [place] (Hydrocodone) and Percocet (Oxycodone) - intolerance to Tramadol and Vicodin Muscle Relaxants: Flexeril (Cyclobenzaprine) and Zanaflex (Tizanidine) Topicals: none Other Prescription or OTC Pain Medications: none Non-Pain Meds of Note: None Allergies: Allergies: Bactrim [Sulfametho* GI Upset Comment:diarrhea Benzamycin [Erythro* Intolerance Comment:Gastric upset Elavil [Amitriptyli* GI Upset Comment:nausea Environmental [Othe* Comment:cats Guiafen-Pse [Pseudo* Diarrhea Humira [Adalimumab] Rash Comment:hair loss Lodine [Etodolac] GI Upset Methotrexate Other: See Comments Comment:SANDY Neurontin [Gabapent* Nsaids (Non-Steroid* Other: See Comments Comment:high risk of peptic ulcer disease (s/p gastric bypass) Ultram [Tramadol Hc* Diarrhea Vicodin [Hydrocodon* Mental Status Change Voltaren [Diclofena* Comment:sedation Zostrix-Hp [Capsaic* Current Medications, Past Medical History, Past Surgical History, Family History & Social History: Reviewed on today's date (noted above) Review of Systems: (Obtained personally on today's date, noted above): Pertinent Positives: MSK - pain in the region being treated Neuro: weakness or numbness in the region being treated Skin: Negative (No itching) Eyes: Negative (No blurred or double vision) Respiratory: Negative (No Cough, [id number]-[id number], Dyspnea on exertion, wheezing) Cardiovascular: Negative (No Chest Pain, Tightness, Pressure, Palpitations) Gastrointestinal: Negative (No Abdominal pain, Nausea, Vomiting, Constipation, Diarrhea) Genitourinary: Negative (No dysuria) Hematologic: Negative (No bleeding, bruising) OB: is Denied or Not Applicable Endocrine: Negative (No hot/cold intolerance) Psychiatric: Negative (No depression, anxiety or suicidal ideation) Diagnostic Studies: Reviewed Personally on today's date, noted above MRI Spine Report MRI LUMBAR SPINE WO IVCON Collected: 08/09/2017 3:07 PM (Final result) Narrative: * * *Final Report* * * DATE OF EXAM: Aug 09 2017 3:07PM [facility] [id number] - MRI LUMBAR SPINE WO IVCON / PROCEDURE REASON: Radiculopathy, lumbar region * * * * Physician Interpretation * * * * HISTORY: Low back pain with radiculopathy. COMPARISON: None. EXAMINATION: Routine lumbosacral spine protocol without gadolinium. RESULTS: Counting reference: Lumbosacral junction. For the purposes of this report, L4/5 is the level of the iliac crests. Alignment: Alignment is anatomic. Bone marrow signal/fracture: No evidence of pathologic marrow infiltration. No evidence of prior fracture. Conus: The conus is within normal limits of signal intensity and morphology. The conus terminates normally at L1. Paraspinal soft tissues: Paraspinal soft tissues are unremarkable. Lower thoracic spine: Visualized lower thoracic canal and foramina are patent. L1-L2: Canal and foramina are patent. L2-L3: Canal and foramina are patent. L3-L4: Canal and foramina are patent. L4-L5: There are bilateral degenerative facet changes. Canal and foramina are patent. L5-S1: There are bilateral degenerative facet changes. Canal and foramina are patent. Sacrum and iliac wings: Visible sacrum and iliac wings are normal. Presacral soft tissues within normal limits. Impression: IMPRESSION: 1. Degenerative facet changes L4/5 and L5/S1 Health Careers Instructor: PSCB Transcribe Date/Time: Aug 09 2017 3:13P Dictated by : KANU VITAL MD This examination was interpreted and the report reviewed and electronically signed by: KANU VITAL MD on Aug 09 2017 3:15PM EST Complete Results DATE PROCEDURE % OF IMPROVEMENT (DURATION) None to date at this practice Physical Exam: There were no vitals filed for this visit. Eyes: Conjunctiva clear. No discharge from eyes Cardiovascular: Appears well perfused Lymphatic: No visible regional lymphadenopathy Skin: No visible rashes or ecchymosis Psychiatric: Full affect, Alert, Pleasant Right Knee(s): Inspection: ? No edema Palpation: ? Concordant tenderness to palpation of medial and lateral joint lines, ligamentous insertions Range of Motion: ? Normal and non-painful active extension and flexion ? No crepitus Special Tests: ? No ligamentous laxity with Anterior drawer, Posterior drawer, Jazmín, Varus stress, Valgus stress Neuro-Lower: Sensation: ? intact to light touch in the L2-S2 Bilateral lower limb dermatomes Muscle Tone: ? Normal and symmetric throughout without clonus Strength: ? Iliopsoas (L2): 4 Left, 4 Right ? Quadriceps (L3) 4 Left, 4 Right ? Anterior Tibialis (L4): 4 Left, 4 Right ? Extensor Hallucis Longus (L5): 4 Left, 3 Right (pain limited effort) ? Gastrocnemius (S1): 4 Left, 3 Right (pain limited effort) Reflexes: ? Decreased 1+ and symmetric Patellar, Achilles ? Downgoing plantar responses (negative Babinski) bilaterally Musculoskeletal-Lower: Inspection: ? Symmetric without atrophy Palpation: ? Lumbar Paraspinal Tenderness: Concordant on Bilateral side(s) ? Paraspinal Spasms: Mild ? PSIS Tenderness: None on Bilateral side(s) ? Greater Trochanter Tenderness: None on Bilateral side(s) Spine Range of Motion: ? Flexion: Decreased 50% With end range pain ? Extension: Decreased 50% With end range pain ? Combination extension and rotation pain: Concordant Hip Range of Motion: ? Right Hip: ? Internal Rotation: Normal; Pain at end range: None ? External Rotation: Normal; Pain at end range: None ? Left Hip: ? Internal Rotation: Normal; Pain at end range: None ? External Rotation: Normal; Pain at end range: None Sacroiliac Maneuvers: Deferred Diagnoses: (M06.9) Rheumatoid arthritis involving multiple sites, unspecified whether rheumatoid factor present ([facility]) (primary encounter diagnosis) (M81.0) Osteoporosis, unspecified osteoporosis type, unspecified pathological fracture presence (Z79.891) intermediate prescription opiate use (M47.816) Lumbar spondylosis (M17.12) Primary osteoarthritis of right knee (M79.7) Fibromyalgia Impression: 56 year old female with significant past medical history for RA, Lupus, Gastric Bypass, Neuropathy, who presents with complaint(s) of diffuse body aches and pains. Bilateral knee osteoarthritis, but knee pain in proportion to the other pain. Medication options limited by intolerances and by gastric bypass. Plan: Paulina Mei would benefit from the following to reach personal goals for decreasing pain, improving function and work participation, and/or improving quality of life: Medication(s): Percocet 5/325, #120 PRN breakthrough pain - continue (we discussed no changes to her opioids until she can show that she will be compliant with plan of care) Cymbalta 120mg daily Continue Topamax 100mg BID (PCP) Continue Zanaflex 4mg 2-3 times daily PRN Ibuprofen OTC - uses sparingly Additional Studies: Bone Density Scan - advised to attend UDS Today OIC: The opioid informed consent was reviewed and signed by the patient and a copy was offered (06/2021) Referrals: Encouraged to establish with a Hairspring Studder. Her pain may be better controlled as her inflammatory conditions are monitored and management is optimized. Advised to attend. Explained that if she continues to be noncompliant with her plan of care, not attending recommended evaluations, not having recommended tests, not bringing her bottle to appointment, not presenting for UDS, that we would not be able to continue writing her for opioids Advised that she talk with her PCP about a psychology referral to discuss coping strategies due to pain and possibly for depression Functional Caodaism: No changes-continue current regimen Depending on response to the above-mentioned plan of care, in the future may consider evaluation for: Consider Morphine -Follow-up: 2 months Attribution: In addition to reviewing the information noted above, some elements copied from my most recent clinical note(s), including the physical exam (completed in entirety today), and the impression and plan sections, have been updated where appropriate. All reflect current medical decision making from today's date. Faye Beltran MD, MBA Pain Management [facility] documented in this encounter [facility] 10-13-2021 Miscellaneous Notes Sending refill today for 30 days. She needs a random drug screen - she can get it on Saturday at the [facility] where she sees me for clinic. Can we move her appointment to an earlier date (preferably before November 09)? It can be with my SUPERVISOR INSTRUMENT MAINTENANCE, Eunice. Please remind her that we refill opioids at appointments. If she notices that she will run out before her next appointment, she should reach out to try to move up the appointment. Faye Beltran III, MD, ANDRÉS Spoke with patient she is requesting a refill of the percocet. She states that she has been out for 2 days. Please advise. Rober Rich MA Will ask nursing staff to reach out and identify what her concern is at present. PDMP reviewed, last Percocet script filled on 09/09/2021. She is due for a refill. It is not clear to me why her appointment is in late October, when I saw her in early August and asked for a 2 month follow-up (before she needed refills on her opioids). Other than perhaps we have been without a nurse practitioner and this may have been the first available appointment. We can try to move her up to early October by seeing my SUPER[employer] MAINTENANCE (or if I have an opening earlier than 11/23). I can send in refills to cover until that time if that is the concern. Faye Beltran III, MD, ANDRÉS I have received no telephone encounters on this patient requesting pain medication. The phone encounter to Dr. Beltran was for refill on duloxetine which was completed. Dr. Beltran is now managing her narcotics. Please direct concerns to his office. Thanks, Dru Wolff PA-C Mother (Noemi) calls in yelling that patient is in serious pain and someone needs to do something before Saturday as this is negligent. Mother is not listed on demographics so this nurse wouldn't give her any information. Noemi reports patient has been calling and no one will call her back. .Juanita Vizcaino RN Pt calls in and reports that Pain Management provider and PCP will not call her back. Pt states that since PCP called and talked with pain management they have not been refilling her Percocet. Pt states that she has been out of pain pills for 2 days and needs to get them filled. Please call and advise. documented in this encounter [facility] 08-10-2021 Note HNO ID: [id number] Author: Faye Beltran MD Service: ? Author Type: Physician Type: Progress Notes Filed: 08/10/2021 1:47 PM Note Text: [facility] Name: Paulina Gotti Sigifredo : 1965 Purpose: Follow-Up Evaluation (Telemedicine Encounter) Today's Date: 08/10/2021 - Most recent visit date: 06/22/2021 ([place]oris) This is a virtual visit via Zoom, Phone, and/or MyChart. It required patient-provider interaction for the medical decision making as documented below. Patient understands that privacy cannot be guaranteed. Chief Complaint (reason for call): diffuse body aches and pains Interval History: Since last encounter, Paulina Mei reports that the chronic problem(s) of diffuse body aches and pains are unchanged. When she has flare-ups, it impacts all her involved joints, including the shoulders, hands, feet and knees. Pain particularly bad at night. She is no longer taking daily steroids. She has not reestablished with a Hairspring Studder. She reports that when she takes the Percocet, it is not strong enough and that it wears off quickly. She has been diagnosed with peripheral neuropathy by Electrodiagnostic Study. HPI from 06/2021: Paulina Mei is a 55 year old female who presents for new patient evaluation joint pain. Patient has a longstanding history of rheumatoid arthritis. She is followed with [facility] rheumatology in the past last being about 3 years ago. She states she has been on Biologics injections and is trialed medications with that specialty with no relief in her pain. Patient reports generalized joint pain shoulders hands and feet and knees. She is currently following with orthopedist for her left knee pain they are discussing a knee replacement however she has to see a new specialist for her surgery. 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 She reports she is on daily steroids from her PCP. She reports her pain is currently controlled with her Percocet 5 mg tablets that she takes 4 times a day. This was a recent increase from 3 times a day only because she has had increased left knee pain. When asking for an increase with her family doctor they referred her here to evaluate for other alternatives. Patient reports that Percocet 4 times a day does reduce her pain however she is still and significant pain throughout the day. Patient denies any new falls or injuries. She denies any cervical or lumbar pain. She denies using any assistive devices with her ambulation. She is inquiring about pain medications today. Impression: 55 year old female with significant past medical history rheumatoid arthritis, osteoarthritis, lupus, and fibromyalgia who presents with complaint(s) of generalized joint pain most notably in her knees left greater than right. She also has hand and feet pain bilaterally with deformities present. Patient is currently on Percocet 5 #120 from PCP. She was sent to discuss increase in her medications. This recent increase to #120 does help control her pain a little better however she reports still having severe pain during the day. We discussed a possible rotation to [place] in the future. However I had like for her to meet with attending physician Dr. Beltran to further discuss her medication management as she is on several other classes of medications it is concerning for oversedation. She is currently on tizanidine, she is on trazodone and Ambien for sleep aids, neuropathic's to include Topamax Cymbalta. Today I will refill her Percocet dosing that she is currently on she will also receive a prescription for Narcan as we discussed the purpose and the use of this device. Current Status: Opioid Medications requiring refills today: Percocet 5/325 Date last filled: 08/04/2021 Quantity filled: 24 (Bridge, normally 120/mo) How many left: 1 Time most recent dose taken: N/A (Telemedicine visit) Non-Opioid Medications requiring refills today: Cymbalta 60mg daily (PCP) Topamax 100mg BID (PCP) Zanaflex 4mg 2-3 times daily PRN (PCP) Ibuprofen OTC - uses sparingly Compliance: Safety Checklist: - Are you taking proper precautions to safe guard your medication? Yes - Taking the medications as prescribed? Yes - Getting pain medications from another physician? No - Obtaining pain medication from another source? No - Sharing medications with friends/family? No - Quality of life improved as a result of taking these medications? Yes - Any side effect with this medication? No Justification for Continued Opioid Care: - Adequate analgesia? Yes - Aberrant drug seeking behavior? No - Adverse reactions? No - Medications improve quality of life? Yes Functional Goals: To remain active and independent Compliance: PDMP website checked and validated. All prescriptions have been APPROPRIATELY filled. No suspicious activity was identified. 08/10/2021 by Leticia (more content not included)... [facility] 06-22-2021 Note HNO ID: [id number] Author: Jere Puentes APRN.SUPERVISOR [employer] MAINTENANCE Service: ? Author Type: Nurse Practitioner Type: Progress Notes Filed: 06/22/2021 4:13 PM Note Text: [facility] Phone: Date of Evaluation: 06/22/2021 Patient Name: Paulina Mei : 1965 Subjective: Patient presents with: New Patient: All over pain . HPI: Paulina Mei is a 55 year old female who presents for new patient evaluation joint pain. Patient has a longstanding history of rheumatoid arthritis. She is followed with [facility] rheumatology in the past last being about 3 years ago. She states she has been on Biologics injections and is trialed medications with that specialty with no relief in her pain. Patient reports generalized joint pain shoulders hands and feet and knees. She is currently following with orthopedist for her left knee pain they are discussing a knee replacement however she has to see a new specialist for her surgery. 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 She reports she is on daily steroids from her PCP. She reports her pain is currently controlled with her Percocet 5 mg tablets that she takes 4 times a day. This was a recent increase from 3 times a day only because she has had increased left knee pain. When asking for an increase with her family doctor they referred her here to evaluate for other alternatives. Patient reports that Percocet 4 times a day does reduce her pain however she is still and significant pain throughout the day. Patient denies any new falls or injuries. She denies any cervical or lumbar pain. She denies using any assistive devices with her ambulation. She is inquiring about pain medications today. Pain Assessment: INTAKE PAIN ASSESSMENT 06/01/2021 06/22/2021 Are you having pain associated with your visit today? Yes, Provider notified Yes, Provider notified Pain Scales Verbal (Numeric Rating or Visual Analog Scale) Verbal (Numeric Rating or Visual Analog Scale) Pain Level 8 9 Pain Location Knee-Left - Description Sharp;Aching Aching Duration Amount of Time 2 - Duration Units Months Years Frequency - Continuous Intervention/Comfort measure Medication Medication Pain Assessment (RN/FIBERGLASS BONDING MACHINE TENDER) - - OARRS Report: PDMP website checked and validated. All prescriptions have been APPROPRIATELY filled. No suspicious activity was identified. 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 - Irritable bowel syndrome - Migraine, unspecified, without mention of intractable migraine without mention of status migrainosus - Morbid obesity due to excess calories (HCC) 12/15/2015 - Polyneuropathy in other diseases classified elsewhere ([facility]) - Recurrent major depression in partial remission ([facility]) 02/29/2020 - Rheumatoid arthritis(714.0) - Systemic lupus erythematosus arthritis (HCC) 03/18/2014 - Unspecified asthma(493.90) - Unspecified hypothyroidism - Vitamin B 12 deficiency 11/22/2017 - Vitamin D deficiency 09/16/2012 Past Surgical History: PAST SURGICAL HISTORY Procedure Laterality Date - COLONOSCOPY 1999 - EGD W/O OR W/BRUSH/WASH 1994 EGD - HERNIA REPAIR HX - intestinal bypass 1991 roue-in-Y gastric bypass - KNEE SCOPE,DIAGNOSTIC Arthroscopy, knee - LAP, SUPRACERVIAL HYSTERECTOMY W/ TUBEANDOV, <250G 08/09 endometriosis and ovarian cysts (EDIT 03/2015 abdominal incision) - PULMONARY FUNCTION TEST - REMOVAL GALLBLADDER 1992 Cholecystectomy Family History: FAMILY HISTORY Problem Relation Age of Onset - Asthma Mother - COPD Mother - Arthritis Mother rheumatoid arthritis - other (Circulation) Father - Emphysema Maternal Grandmother - Heart Maternal Grandmother - Hypertension Maternal Grandfather - Diabetes Maternal Grandfather - Arthritis Maternal Uncle rheumatoid arthritis Social History: Social History Tobacco Use - Smoking status: Never Smoker - Smokeless tobacco: Never Used Vaping Use - Vaping Use: Never used Substance Use Topics - Alcohol use: No - Drug use: No Allergies: ALLERGIES Allergen Reactions - Bactrim [Sulfametho* GI Upset diarrhea - Benzamycin [Erythro* Intolerance Gastric upset - Elavil [Amitriptyli* GI Upset nausea - Environmental [Othe* cats - Guiafen-Pse [Pseudo* Diarrhea - Humira [Adalimumab] Rash hair loss - Lodine [Etodolac] GI Upset - Methotrexate Other: See Comments SANDY - Neurontin [Gabapent* - Nsaids (Non-Steroid* Other: See Comments high risk of peptic ulcer disease (s/p gastric bypass) - (more content not included)... [facility] 06-22-2021 Note HNO ID: [id number] Author: Rupinder Simon Service: ? Author Type: ? Type: Progress Notes Filed: 06/22/2021 4:13 PM Note Text: Subjective HPI Review of Systems Eyes: Negative for blurred vision. Respiratory: Negative for shortness of breath. Cardiovascular: Negative for chest pain and leg swelling. Gastrointestinal: Negative for constipation, diarrhea, heartburn and nausea. Genitourinary: Negative for dysuria. Skin: Negative for itching. Neurological: Negative for dizziness, tingling and headaches. Endo/Heme/Allergies: Does not bruise/bleed easily. Psychiatric/Behavioral: Negative for depression and suicidal ideas. 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 - Irritable bowel syndrome - Migraine, unspecified, without mention of intractable migraine without mention of status migrainosus - Morbid obesity due to excess calories (HCC) 12/15/2015 - Polyneuropathy in other diseases classified elsewhere ([facility]) - Recurrent major depression in partial remission ([facility]) 02/29/2020 - Rheumatoid arthritis(714.0) - Systemic lupus erythematosus arthritis (HCC) 03/18/2014 - Unspecified asthma(493.90) - Unspecified hypothyroidism - Vitamin B 12 deficiency 11/22/2017 - Vitamin D deficiency 09/16/2012 PAST SURGICAL HISTORY Procedure Laterality Date - COLONOSCOPY 1999 - EGD W/O OR W/BRUSH/WASH 1994 EGD - HERNIA REPAIR HX - intestinal bypass 1991 roue-in-Y gastric bypass - KNEE SCOPE,DIAGNOSTIC Arthroscopy, knee - LAP, SUPRACERVIAL HYSTERECTOMY W/ TUBEANDOV, <250G 08/09 endometriosis and ovarian cysts (EDIT 03/2015 abdominal incision) - PULMONARY FUNCTION TEST - REMOVAL GALLBLADDER 1992 Cholecystectomy FAMILY HISTORY Problem Relation Age of Onset - Asthma Mother - COPD Mother - Arthritis Mother rheumatoid arthritis - other (Circulation) Father - Emphysema Maternal Grandmother - Heart Maternal Grandmother - Hypertension Maternal Grandfather - Diabetes Maternal Grandfather - Arthritis Maternal Uncle rheumatoid arthritis Social History Tobacco Use - Smoking status: Never Smoker - Smokeless tobacco: Never Used Vaping Use - Vaping Use: Never used Substance Use Topics - Alcohol use: No - Drug use: No Current Meds zolpidem (AMBIEN) 5 mg tablet Alternate 1 tab every other day with 2 tabs as needed for sleep (weaning to 5mg qHS) traZODone (DESYREL) 50 mg tablet Take 1.5 tablets by mouth daily at bedtime. topiramate (TOPAMAX) 100 mg tablet Take 2 tablets by mouth twice daily. tiZANidine (ZANAFLEX) 4 mg tablet Take 2 tablets by mouth every 6 hours as needed (muscle spasms). oxyCODONE-acetaminophen (PERCOCET) 5-325 mg tablet Take 1 tablet by mouth every 6 hours as needed for pain. predniSONE (DELTASONE) 10 mg tablet 6 pills, 6, 5, 5, 4, 4, 3, 3, 2, 2, 1, 1. DULoxetine (CYMBALTA) 60 mg capsule Take 1 capsule by mouth once daily. albuterol HFA (PROAIR HFA) 90 mcg/actuation inhaler Inhale 2 Puffs as instructed every 4 hours as needed for wheezing/shortness of breath. zolpidem (AMBIEN) 10 mg Please attempt to wean dose progressively to 1/2 tab as needed for sleep hydrOXYzine HCl (ATARAX) 25 mg tablet Take 1 tablet by mouth every 8 hours as needed for Anxiety. levothyroxine (SYNTHROID) 88 mcg tablet Take 1 tablet by mouth once daily. Take on empty stomach. fluticasone (FLONASE) 50 mcg/actuation nasal spray Use 2 Sprays in each nostril once daily. Rinse mouth after use. meclizine (ANTIVERT) 25 mg tab Take 1 tablet by mouth every 6 hours as needed (dizziness). dicyclomine (BENTYL) 10 mg capsule Take 1 capsule by mouth before meals and at bedtime. as needed for abdominal cramping busPIRone (BUSPAR) 15 mg tablet Take 1 tablet by mouth three times daily. albuterol HFA (PROVENTIL HFA, VENTOLIN HFA) 90 mcg/actuation inhaler Inhale 2 Puffs as instructed every 4 hours as needed for Wheezing/Shortness of Breath. folic acid 1 mg tablet Take 1 tablet by mouth once daily. Zinc 50 mg tab Take 1 tablet by mouth once each week. blood sugar diagnostic (ONETOUCH ULTRA TEST) test strip test once/day. DX 250.00 no insulin Blood-Glucose Meter (ONETOUCH ULTRA SYSTEM KIT) monitoring kit test one time daily dx 250.00 no insulin Objective LMP 02/05/2008 Physical Exam [facility] 03-27-2021 History of Presen t illness Narrative Radiology Service Progress Note PATIENT NAME: Paulina Mei DATE OF SERVICE: March 27, 2021 TIME: 6:20 PM PATIENT IDENTITY VERIFICATION COMPLETED USING TWO (2) IDENTIFIERS: Name and Date of confirmed by patient verbally. FALL SCREENING: Has the patient had 2 falls in the last year or 1 fall with injury or currently using an Ambulatory Assistive Device (Walker, Cane, Wheelchair, Crutches, etc.)? No PATIENT GENDER DATA: Female. status: : No status: NO. PATIENT RELEVANT IMPLANT DATA REVIEWED: Yes RADIOLOGY DEPARTMENT: General X-ray: Exam(s) Completed: Upper Extremity X-Ray(s): Shoulder, AP / TRUE AP / AXILLARY right PERIPHERAL IV DATA: Not applicable SIGNED BY: RT Mitzy(R) March 27, 2021 6:20 PM documented in this encounter [facility] 11-11-2018 History of Past i llness Narrative Problem Noted Date Resolved Date Asthmatic bronchitis 11/11/2018 10/22/2020 Bursitis of right shoulder 09/29/201810/22 Lateral femoral cutaneous neuropathy, right 10/3110/22/2020 Constipation, unspecified 08/14/20172017 Low back pain 08/14/2017 06/19/2018 Migraine without status migrainosus, not intract able 08/14/2017 10/22/2020 Right-sided chest wall pain 01/14/201706/02 Therapeutic opioid induced constipation 09/25/19 17 06/19/2018 Bleeding hemorrhoids 09/25/2016 06/19/2018 Hypoglycemia after GI (gastrointestinal) surgery 04/30/2014 09/29/2015 Incisional hernia 04/06/2014 10/22/2020 Abdominal pain, unspecified site 04/14/2013 09/29/2015 Pubic bone pain 04/14/2013 09/29/2015 Diabetes Mellitus 04/20/2010 10/14/2014 Diabetes mellitus 04/20/2010 11/22/2016 Iron deficiency anemia 01/10/2010 8 Plantar fascial fibromatosis 10/13/2008 Disorders of bursae and tend ons in shoulder region, unspecified 12/02/2006 09/29/2015 documented as of this encounter (statuses as of 11/23/2021) [facility]03-12-2019 History of Past illness Narrative* Problem Noted Date Resolved Date Asthmatic bronchitis 11/11/2018 10/22/2020 Bursitis of right shoulder 09/29/201810/22 Lateral femoral cutaneous neuropathy, right 10/3110/22/2020 Constipation, unspecified 08/14/20172017 Low back pain 08/14/2017 06/19/2018 Migraine without status migrainosus, not intract able 08/14/2017 10/22/2020 Right-sided chest wall pain 01/14/201706/02 Therapeutic opioid induced constipation 09/25/19 17 06/19/2018 Bleeding hemorrhoids 09/25/2016 06/19/2018 Hypoglycemia after GI (gastrointestinal) surgery 04/30/2014 09/29/2015 Incisional hernia 04/06/2014 10/22/2020 Abdominal pain, unspecified site 04/14/2013 09/29/2015 Pubic bone pain 04/14/2013 09/29/2015 Diabetes Mellitus 04/20/2010 10/14/2014 Diabetes mellitus 04/20/2010 11/22/2016 Iron deficiency anemia 01/10/2010 8 Plantar fascial fibromatosis 10/13/2008 Disorders of bursae and tend ons in shoulder region, unspecified 12/02/2006 09/29/2015 documented as of this encounter (statuses as of 11/23/2021) [facility]03-12[facility]2019 History of Past illness Narrative* Problem Noted Date Resolved Date Asthmatic bronchitis 11/11/2018 10/22/2020 Bursitis of right shoulder 09/29/201810/22 Lateral femoral cutaneous neuropathy, right 10/3110/22/2020 Constipation, unspecified 08/14/20172017 Low back pain 08/14/2017 06/19/2018 Migraine without status migrainosus, not intract able 08/14/2017 10/22/2020 Right-sided chest wall pain 01/14/201706/02 Therapeutic opioid induced constipation 09/25/1906/19/2018 Bleeding hemorrhoids 09/25/2016 06/19/2018 Hypoglycemia after GI (gastrointestinal) surgery 04/30/2014 09/29/2015 Incisional hernia 04/06/2014 10/22/2020 Abdominal pain, unspecified site 04/14/2013 09/29/2015 Pubic bone pain 04/14/2013 09/29/2015 Diabetes Mellitus 04/20/2010 10/14/2014 Diabetes mellitus 04/20/2010 11/22/2016 Iron deficiency anemia 01/10/2010 8 Plantar fascial fibromatosis 10/13/2008 Disorders of bursae and tend ons in shoulder region, unspecified 12/02/2006 09/29/2015 documented as of this encounter (statuses as of 11/28/2021) [facility]2019 History of Past illness Narrative* Problem Noted Date Resolved Date Asthmatic bronchitis 11/11/2018 10/22/2020 Bursitis of right shoulder 09/29/201810/22 Lateral femoral cutaneous neuropathy, right 10/3110/22/2020 Constipation, unspecified 08/14/20172017 Low back pain 08/14/2017 06/19/2018 Migraine without status migrainosus, not intract able 08/14/2017 10/22/2020 Right-sided chest wall pain 01/14/201706/02 Therapeutic opioid induced constipation 09/25/19 17 06/19/2018 Bleeding hemorrhoids 09/25/2016 06/19/2018 Hypoglycemia after GI (gastrointestinal) surgery 04/30/2014 09/29/2015 Incisional hernia 04/06/2014 10/22/2020 Abdominal pain, unspecified site 04/14/2013 09/29/2015 Pubic bone pain 04/14/2013 09/29/2015 Diabetes Mellitus 04/20/2010 10/14/2014 Diabetes mellitus 04/20/2010 11/22/2016 Iron deficiency anemia 01/10/2010 8 Plantar fascial fibromatosis 10/13/2008 Disorders of bursae and tend ons in shoulder region, unspecified 12/02/2006 09/29/2015 documented as of this encounter (statuses as of 11/29/2021) [facility]-12[facility]2019 History of Past illness Narrative* Problem Noted Date Resolved Date Asthmatic bronchitis 11/11/2018 10/22/2020 Bursitis of right shoulder 09/29/201810/22 Lateral femoral cutaneous neuropathy, right 10/3110/22/2020 Constipation, unspecified 08/14/20172017 Low back pain 08/14/2017 06/19/2018 Migraine without status migrainosus, not intract able 08/14/2017 10/22/2020 Right-sided chest wall pain 01/14/201706/02 Therapeutic opioid induced constipation 09/25/19 17 06/19/2018 Bleeding hemorrhoids 09/25/2016 06/19/2018 Hypoglycemia after GI (gastrointestinal) surgery 04/30/2014 09/29/2015 Incisional hernia 04/06/2014 10/22/2020 Abdominal pain, unspecified site 04/14/2013 09/29/2015 Pubic bone pain 04/14/2013 09/29/2015 Diabetes Mellitus 04/20/2010 10/14/2014 Diabetes mellitus 04/20/2010 11/22/2016 Iron deficiency anemia 01/10/2010 8 Plantar fascial fibromatosis 10/13/2008 Disorders of bursae and tend ons in shoulder region, unspecified 12/02/2006 09/29/2015 documented as of this encounter (statuses as of 12/05/2021) [facility]12[facility]2019 History of Past illness Narrative* Problem Noted Date Resolved Date Asthmatic bronchitis 11/11/2018 10/22/2020 Bursitis of right shoulder 09/29/201810/22 Lateral femoral cutaneous neuropathy, right 10/3110/22/2020 Constipation, unspecified 08/14/20172017 Low back pain 08/14/2017 06/19/2018 Migraine without status migrainosus, not intract able 08/14/2017 10/22/2020 Right-sided chest wall pain 01/14/201706/02 Therapeutic opioid induced constipation 09/25/19 17 06/19/2018 Bleeding hemorrhoids 09/25/2016 06/19/2018 Hypoglycemia after GI (gastrointestinal) surgery 04/30/2014 09/29/2015 Incisional hernia 04/06/2014 10/22/2020 Abdominal pain, unspecified site 04/14/2013 09/29/2015 Pubic bone pain 04/14/2013 09/29/2015 Diabetes Mellitus 04/20/2010 10/14/2014 Diabetes mellitus 04/20/2010 11/22/2016 Iron deficiency anemia 01/10/2010 8 Plantar fascial fibromatosis 10/13/2008 Disorders of bursae and tend ons in shoulder region, unspecified 12/02/2006 09/29/2015 documented as of this encounter (statuses as of 12/06/2021) [facility]12[facility]2019 History of Past illness Narrative* Problem Noted Date Resolved Date Asthmatic bronchitis 11/11/2018 10/22/2020 Bursitis of right shoulder 09/29/201810/22 Lateral femoral cutaneous neuropathy, right 10/3110/22/2020 Constipation, unspecified 08/14/20172017 Low back pain 08/14/2017 06/19/2018 Migraine without status migrainosus, not intract able 08/14/2017 10/22/2020 Right-sided chest wall pain 01/14/201706/02 Therapeutic opioid induced constipation 09/25/19 17 06/19/2018 Bleeding hemorrhoids 09/25/2016 06/19/2018 Hypoglycemia after GI (gastrointestinal) surgery 04/30/2014 09/29/2015 Incisional hernia 04/06/2014 10/22/2020 Abdominal pain, unspecified site 04/14/2013 09/29/2015 Pubic bone pain 04/14/2013 09/29/2015 Diabetes Mellitus 04/20/2010 10/14/2014 Diabetes mellitus 04/20/2010 11/22/2016 Iron deficiency anemia 01/10/2010 8 Plantar fascial fibromatosis 10/13/2008 Disorders of bursae and tend ons in shoulder region, unspecified 12/02/2006 09/29/2015 documented as of this encounter (statuses as of 12/23/2021) [facility]12[facility]2019 History of Past illness Narrative* Problem Noted Date Resolved Date Asthmatic bronchitis 11/11/2018 10/22/2020 Bursitis of right shoulder 09/29/201810/22 Lateral femoral cutaneous neuropathy, right /01/201810/22/2020 Constipation, unspecified 08/14/20172017 Low back pain 08/14/2017 06/19/2018 Migraine without status migrainosus, not intract able 08/14/2017 10/22/2020 Right-sided chest wall pain 01/14/201706/02 Therapeutic opioid induced constipation 09/25/19 17 06/19/2018 Bleeding hemorrhoids 09/25/2016 06/19/2018 Hypoglycemia after GI (gastrointestinal) surgery 04/30/2014 09/29/2015 Incisional hernia 04/06/2014 10/22/2020 Abdominal pain, unspecified site 04/14/2013 09/29/2015 Pubic bone pain 04/14/2013 09/29/2015 Diabetes Mellitus 04/20/2010 10/14/2014 Diabetes mellitus 04/20/2010 11/22/2016 Iron deficiency anemia 01/10/2010 8 Plantar fascial fibromatosis 10/13/2008 Disorders of bursae and tend ons in shoulder region, unspecified 12/02/2006 09/29/2015 documented as of this encounter (statuses as of 12/26/2021) [facility]12[facility]2019 History of Past illness Narrative* Problem Noted Date Resolved Date Asthmatic bronchitis 11/11/2018 10/22/2020 Bursitis of right shoulder 09/29/201810/22 Lateral femoral cutaneous neuropathy, right /01/201810/22/2020 Constipation, unspecified 08/14/20172017 Low back pain 08/14/2017 06/19/2018 Migraine without status migrainosus, not intract able 08/14/2017 10/22/2020 Right-sided chest wall pain 01/14/201706/02 Therapeutic opioid induced constipation 09/25/19 17 06/19/2018 Bleeding hemorrhoids 09/25/2016 06/19/2018 Hypoglycemia after GI (gastrointestinal) surgery 04/30/2014 09/29/2015 Incisional hernia 04/06/2014 10/22/2020 Abdominal pain, unspecified site 04/14/2013 09/29/2015 Pubic bone pain 04/14/2013 09/29/2015 Diabetes Mellitus 04/20/2010 10/14/2014 Diabetes mellitus 04/20/2010 11/22/2016 Iron deficiency anemia 01/10/2010 8 Plantar fascial fibromatosis 10/13/2008 Disorders of bursae and tend ons in shoulder region, unspecified 12/02/2006 09/29/2015 documented as of this encounter (statuses as of 12/29/2021) [facility]12[facility]2019 History of Past illness Narrative* Problem Noted Date Resolved Date Asthmatic bronchitis 11/11/2018 10/22/2020 Bursitis of right shoulder 09/29/201810/22 Lateral femoral cutaneous neuropathy, right 10/3110/22/2020 Constipation, unspecified 08/14/20172017 Low back pain 08/14/2017 06/19/2018 Migraine without status migrainosus, not intract able 08/14/2017 10/22/2020 Right-sided chest wall pain 01/14/201706/02 Therapeutic opioid induced constipation 09/25/19 17 06/19/2018 Bleeding hemorrhoids 09/25/2016 06/19/2018 Hypoglycemia after GI (gastrointestinal) surgery 04/30/2014 09/29/2015 Incisional hernia 04/06/2014 10/22/2020 Abdominal pain, unspecified site 04/14/2013 09/29/2015 Pubic bone pain 04/14/2013 09/29/2015 Diabetes Mellitus 04/20/2010 10/14/2014 Diabetes mellitus 04/20/2010 11/22/2016 Iron deficiency anemia 01/10/2010 8 Plantar fascial fibromatosis 10/13/2008 Disorders of bursae and tend ons in shoulder region, unspecified 12/02/2006 09/29/2015 documented as of this encounter (statuses as of 01/02/2022) [facility]12[facility]2019 History of Past illness Narrative* Problem Noted Date Resolved Date Asthmatic bronchitis 11/11/2018 10/22/2020 Bursitis of right shoulder 09/29/201810/22 Lateral femoral cutaneous neuropathy, right 10/3110/22/2020 Constipation, unspecified 08/14/20172017 Low back pain 08/14/2017 06/19/2018 Migraine without status migrainosus, not intract able 08/14/2017 10/22/2020 Right-sided chest wall pain 01/14/201706/02 Therapeutic opioid induced constipation 09/25/1906/19/2018 Bleeding hemorrhoids 09/25/2016 06/19/2018 Hypoglycemia after GI (gastrointestinal) surgery 04/30/2014 09/29/2015 Incisional hernia 04/06/2014 10/22/2020 Abdominal pain, unspecified site 04/14/2013 09/29/2015 Pubic bone pain 04/14/2013 09/29/2015 Diabetes Mellitus 04/20/2010 10/14/2014 Diabetes mellitus 04/20/2010 11/22/2016 Iron deficiency anemia 01/10/2010 8 Plantar fascial fibromatosis 10/13/2008 Disorders of bursae and tend ons in shoulder region, unspecified 12/02/2006 09/29/2015 documented as of this encounter (statuses as of 01/04/2022) [facility] History of Past illness Narrative* Problem Noted Date Resolved Date Asthmatic bronchitis 11/11/2018 10/22/2020 Bursitis of right shoulder 09/29/201810/22 Lateral femoral cutaneous neuropathy, right 10/3110/22/2020 Constipation, unspecified 08/14/20172017 Low back pain 08/14/2017 06/19/2018 Migraine without status migrainosus, not intract able 08/14/2017 10/22/2020 Right-sided chest wall pain 01/14/201706/02 Therapeutic opioid induced constipation 09/25/19 17 06/19/2018 Bleeding hemorrhoids 09/25/2016 06/19/2018 Hypoglycemia after GI (gastrointestinal) surgery 04/30/2014 09/29/2015 Incisional hernia 04/06/2014 10/22/2020 Abdominal pain, unspecified site 04/14/2013 09/29/2015 Pubic bone pain 04/14/2013 09/29/2015 Diabetes Mellitus 04/20/2010 10/14/2014 Diabetes mellitus 04/20/2010 11/22/2016 Iron deficiency anemia 01/10/2010 8 Plantar fascial fibromatosis 10/13/2008 Disorders of bursae and tend ons in shoulder region, unspecified 12/02/2006 09/29/2015 documented as of this encounter (statuses as of 02/02/2022) [facility]2019 History of Past illness Narrative* Problem Noted Date Resolved Date Asthmatic bronchitis 11/11/2018 10/22/2020 Bursitis of right shoulder 09/29/201810/22 Lateral femoral cutaneous neuropathy, right 10/3110/22/2020 Constipation, unspecified 08/14/20172017 Low back pain 08/14/2017 06/19/2018 Migraine without status migrainosus, not intract able 08/14/2017 10/22/2020 Right-sided chest wall pain 01/14/201706/02 Therapeutic opioid induced constipation 09/25/19 17 06/19/2018 Bleeding hemorrhoids 09/25/2016 06/19/2018 Hypoglycemia after GI (gastrointestinal) surgery 04/30/2014 09/29/2015 Incisional hernia 04/06/2014 10/22/2020 Abdominal pain, unspecified site 04/14/2013 09/29/2015 Pubic bone pain 04/14/2013 09/29/2015 Diabetes Mellitus 04/20/2010 10/14/2014 Diabetes mellitus 04/20/2010 11/22/2016 Iron deficiency anemia 01/10/2010 8 Plantar fascial fibromatosis 10/13/2008 Disorders of bursae and tend ons in shoulder region, unspecified 12/02/2006 09/29/2015 documented as of this encounter (statuses as of 03/02/2022) [facility]2019 History of Past illness Narrative* Problem Noted Date Resolved Date Asthmatic bronchitis 11/11/2018 10/22/2020 Bursitis of right shoulder 09/29/201810/22 Lateral femoral cutaneous neuropathy, right 03/01/201810/22/2020 Constipation, unspecified 08/14/20172017 Low back pain 08/14/2017 06/19/2018 Migraine without status migrainosus, not intract able 08/14/2017 10/22/2020 Right-sided chest wall pain 01/14/201706/02 Therapeutic opioid induced constipation 09/25/19 17 06/19/2018 Bleeding hemorrhoids 09/25/2016 06/19/2018 Hypoglycemia after GI (gastrointestinal) surgery 04/30/2014 09/29/2015 Incisional hernia 04/06/2014 10/22/2020 Abdominal pain, unspecified site 04/14/2013 09/29/2015 Pubic bone pain 04/14/2013 09/29/2015 Diabetes Mellitus 04/20/2010 10/14/2014 Diabetes mellitus 04/20/2010 11/22/2016 Iron deficiency anemia 01/10/2010 8 Plantar fascial fibromatosis 10/13/2008 Disorders of bursae and tend ons in shoulder region, unspecified 12/02/2006 09/29/2015 documented as of this encounter (statuses as of 03/04/2022) [facility] History of Past illness Narrative* Problem Noted Date Resolved Date Asthmatic bronchitis 11/11/2018 10/22/2020 Bursitis of right shoulder 09/29/201810/22 Lateral femoral cutaneous neuropathy, right /01/201810/22/2020 Constipation, unspecified 08/14/20172017 Low back pain 08/14/2017 06/19/2018 Migraine without status migrainosus, not intract able 08/14/2017 10/22/2020 Right-sided chest wall pain 01/14/201706/02 Therapeutic opioid induced constipation 09/25/19 17 06/19/2018 Bleeding hemorrhoids 09/25/2016 06/19/2018 Hypoglycemia after GI (gastrointestinal) surgery 04/30/2014 09/29/2015 Incisional hernia 04/06/2014 10/22/2020 Abdominal pain, unspecified site 04/14/2013 09/29/2015 Pubic bone pain 04/14/2013 09/29/2015 Diabetes Mellitus 04/20/2010 10/14/2014 Diabetes mellitus 04/20/2010 11/22/2016 Iron deficiency anemia 01/10/2010 8 Plantar fascial fibromatosis 10/13/2008 Disorders of bursae and tend ons in shoulder region, unspecified 12/02/2006 09/29/2015 documented as of this encounter (statuses as of 03/06/2022) [facility] History of Past illness Narrative* Problem Noted Date Resolved Date Asthmatic bronchitis 11/11/2018 10/22/2020 Bursitis of right shoulder 09/29/201810/22 Lateral femoral cutaneous neuropathy, right /01/201810/22/2020 Constipation, unspecified 08/14/20172017 Low back pain 08/14/2017 06/19/2018 Migraine without status migrainosus, not intract able 08/14/2017 10/22/2020 Right-sided chest wall pain 01/14/201706/02 Therapeutic opioid induced constipation 09/25/19 17 06/19/2018 Bleeding hemorrhoids 09/25/2016 06/19/2018 Hypoglycemia after GI (gastrointestinal) surgery 04/30/2014 09/29/2015 Incisional hernia 04/06/2014 10/22/2020 Abdominal pain, unspecified site 04/14/2013 09/29/2015 Pubic bone pain 04/14/2013 09/29/2015 Diabetes Mellitus 04/20/2010 10/14/2014 Diabetes mellitus 04/20/2010 11/22/2016 Iron deficiency anemia 01/10/2010 8 Plantar fascial fibromatosis 10/13/2008 Disorders of bursae and tend ons in shoulder region, unspecified 12/02/2006 09/29/2015 documented as of this encounter (statuses as of 03/07/2022) [facility] History of Past illness Narrative* Problem Noted Date Resolved Date Asthmatic bronchitis 11/11/2018 10/22/2020 Bursitis of right shoulder 09/29/201810/22 Lateral femoral cutaneous neuropathy, right /01/201810/22/2020 Constipation, unspecified 08/14/20172017 Low back pain 08/14/2017 06/19/2018 Migraine without status migrainosus, not intract able 08/14/2017 10/22/2020 Right-sided chest wall pain 01/14/201706/02 Therapeutic opioid induced constipation 09/25/19 17 06/19/2018 Bleeding hemorrhoids 09/25/2016 06/19/2018 Hypoglycemia after GI (gastrointestinal) surgery 04/30/2014 09/29/2015 Incisional hernia 04/06/2014 10/22/2020 Abdominal pain, unspecified site 04/14/2013 09/29/2015 Pubic bone pain 04/14/2013 09/29/2015 Diabetes Mellitus 04/20/2010 10/14/2014 Diabetes mellitus 04/20/2010 11/22/2016 Iron deficiency anemia 01/10/2010 8 Plantar fascial fibromatosis 10/13/2008 Disorders of bursae and tend ons in shoulder region, unspecified 12/02/2006 09/29/2015 documented as of this encounter (statuses as of 03/15/2022) [facility] History of Past illness Narrative* Problem Noted Date Resolved Date Asthmatic bronchitis 11/11/2018 10/22/2020 Bursitis of right shoulder 09/29/201810/22 Lateral femoral cutaneous neuropathy, right 10/3110/22/2020 Constipation, unspecified 08/14/20172017 Low back pain 08/14/2017 06/19/2018 Migraine without status migrainosus, not intract able 08/14/2017 10/22/2020 Right-sided chest wall pain 01/14/201706/02 Therapeutic opioid induced constipation 09/25/19 17 06/19/2018 Bleeding hemorrhoids 09/25/2016 06/19/2018 Hypoglycemia after GI (gastrointestinal) surgery 04/30/2014 09/29/2015 Incisional hernia 04/06/2014 10/22/2020 Abdominal pain, unspecified site 04/14/2013 09/29/2015 Pubic bone pain 04/14/2013 09/29/2015 Diabetes Mellitus 04/20/2010 10/14/2014 Diabetes mellitus 04/20/2010 11/22/2016 Iron deficiency anemia 01/10/2010 8 Plantar fascial fibromatosis 10/13/2008 Disorders of bursae and tend ons in shoulder region, unspecified 12/02/2006 09/29/2015 documented as of this encounter (statuses as of 04/19/2022) [facility] History of Past illness Narrative* Problem Noted Date Resolved Date Asthmatic bronchitis 11/11/2018 10/22/2020 Bursitis of right shoulder 09/29/201810/22 Lateral femoral cutaneous neuropathy, right 03/1 01/201810/22/2020 Constipation, unspecified 08/14/20172017 Low back pain 08/14/2017 06/19/2018 Migraine without status migrainosus, not intract able 08/14/2017 10/22/2020 Right-sided chest wall pain 01/14/201706/02 Therapeutic opioid induced constipation 09/25/1906/19/2018 Bleeding hemorrhoids 09/25/2016 06/19/2018 Hypoglycemia after GI (gastrointestinal) surgery 04/30/2014 09/29/2015 Incisional hernia 04/06/2014 10/22/2020 Abdominal pain, unspecified site 04/14/2013 09/29/2015 Pubic bone pain 04/14/2013 09/29/2015 Diabetes Mellitus 04/20/2010 10/14/2014 Diabetes mellitus 04/20/2010 11/22/2016 Iron deficiency anemia 01/10/2010 8 Plantar fascial fibromatosis 10/13/2008 Disorders of bursae and tend ons in shoulder region, unspecified 12/02/2006 09/29/2015 documented as of this encounter (statuses as of 05/07/2022) [facility] History of Past illness Narrative* Problem Noted Date Resolved Date Asthmatic bronchitis 11/11/2018 10/22/2020 Bursitis of right shoulder 09/29/201810/22 Lateral femoral cutaneous neuropathy, right 03/1 01/201810/22/2020 Constipation, unspecified 08/14/20172017 Low back pain 08/14/2017 06/19/2018 Migraine without status migrainosus, not intract able 08/14/2017 10/22/2020 Right-sided chest wall pain 01/14/201706/02 Therapeutic opioid induced constipation 09/25/19 17 06/19/2018 Bleeding hemorrhoids 09/25/2016 06/19/2018 Hypoglycemia after GI (gastrointestinal) surgery 04/30/2014 09/29/2015 Incisional hernia 04/06/2014 10/22/2020 Abdominal pain, unspecified site 04/14/2013 09/29/2015 Pubic bone pain 04/14/2013 09/29/2015 Diabetes Mellitus 04/20/2010 10/14/2014 Diabetes mellitus 04/20/2010 11/22/2016 Iron deficiency anemia 01/10/2010 8 Plantar fascial fibromatosis 10/13/2008 Disorders of bursae and tend ons in shoulder region, unspecified 12/02/2006 09/29/2015 documented as of this encounter (statuses as of 05/09/2022) [facility] History of Past illness Narrative* Problem Noted Date Resolved Date Asthmatic bronchitis 11/11/2018 10/22/2020 Bursitis of right shoulder 09/29/201810/22 Lateral femoral cutaneous neuropathy, right 10/3110/22/2020 Constipation, unspecified 08/14/20172017 Low back pain 08/14/2017 06/19/2018 Migraine without status migrainosus, not intract able 08/14/2017 10/22/2020 Right-sided chest wall pain 01/14/201706/02 Therapeutic opioid induced constipation 09/25/19 17 06/19/2018 Bleeding hemorrhoids 09/25/2016 06/19/2018 Hypoglycemia after GI (gastrointestinal) surgery 04/30/2014 09/29/2015 Incisional hernia 04/06/2014 10/22/2020 Abdominal pain, unspecified site 04/14/2013 09/29/2015 Pubic bone pain 04/14/2013 09/29/2015 Diabetes Mellitus 04/20/2010 10/14/2014 Diabetes mellitus 04/20/2010 11/22/2016 Iron deficiency anemia 01/10/2010 8 Plantar fascial fibromatosis 10/13/2008 Disorders of bursae and tend ons in shoulder region, unspecified 12/02/2006 09/29/2015 documented as of this encounter (statuses as of 05/15/2022) [facility] History of Past illness Narrative* Problem Noted Date Resolved Date Asthmatic bronchitis 11/11/2018 10/22/2020 Bursitis of right shoulder 09/29/201810/22 Lateral femoral cutaneous neuropathy, right 03/01/201810/22/2020 Constipation, unspecified 08/14/20172017 Low back pain 08/14/2017 06/19/2018 Migraine without status migrainosus, not intract able 08/14/2017 10/22/2020 Right-sided chest wall pain 01/14/201706/02 Therapeutic opioid induced constipation 09/25/1906/19/2018 Bleeding hemorrhoids 09/25/2016 06/19/2018 Hypoglycemia after GI (gastrointestinal) surgery 04/30/2014 09/29/2015 Incisional hernia 04/06/2014 10/22/2020 Abdominal pain, unspecified site 04/14/2013 09/29/2015 Pubic bone pain 04/14/2013 09/29/2015 Diabetes Mellitus 04/20/2010 10/14/2014 Diabetes mellitus 04/20/2010 11/22/2016 Iron deficiency anemia 01/10/2010 8 Plantar fascial fibromatosis 10/13/2008 Disorders of bursae and tend ons in shoulder region, unspecified 12/02/2006 09/29/2015 documented as of this encounter (statuses as of 05/21/2022) [facility] History of Past illness Narrative* Problem Noted Date Resolved Date Asthmatic bronchitis 11/11/2018 10/22/2020 Bursitis of right shoulder 09/29/201810/22 Lateral femoral cutaneous neuropathy, right 10/3110/22/2020 Constipation, unspecified 08/14/20172017 Low back pain 08/14/2017 06/19/2018 Migraine without status migrainosus, not intract able 08/14/2017 10/22/2020 Right-sided chest wall pain 01/14/201706/02 Therapeutic opioid induced constipation 09/25/1906/19/2018 Bleeding hemorrhoids 09/25/2016 06/19/2018 Hypoglycemia after GI (gastrointestinal) surgery 04/30/2014 09/29/2015 Incisional hernia 04/06/2014 10/22/2020 Abdominal pain, unspecified site 04/14/2013 09/29/2015 Pubic bone pain 04/14/2013 09/29/2015 Diabetes Mellitus 04/20/2010 10/14/2014 Diabetes mellitus 04/20/2010 11/22/2016 Iron deficiency anemia 01/10/2010 8 Plantar fascial fibromatosis 10/13/2008 Disorders of bursae and tend ons in shoulder region, unspecified 12/02/2006 09/29/2015 documented as of this encounter (statuses as of 05/25/2022) [facility]03-12-2019 History of Past illness Narrative* Problem Noted Date Resolved Date Asthmatic bronchitis 11/11/2018 10/22/2020 Bursitis of right shoulder 09/29/201810/22 Lateral femoral cutaneous neuropathy, right /01/201810/22/2020 Constipation, unspecified 08/14/20172017 Low back pain 08/14/2017 06/19/2018 Migraine without status migrainosus, not intract able 08/14/2017 10/22/2020 Right-sided chest wall pain 01/14/201706/02 Therapeutic opioid induced constipation 09/25/19 17 06/19/2018 Bleeding hemorrhoids 09/25/2016 06/19/2018 Hypoglycemia after GI (gastrointestinal) surgery 04/30/2014 09/29/2015 Incisional hernia 04/06/2014 10/22/2020 Abdominal pain, unspecified site 04/14/2013 09/29/2015 Pubic bone pain 04/14/2013 09/29/2015 Diabetes Mellitus 04/20/2010 10/14/2014 Diabetes mellitus 04/20/2010 11/22/2016 Iron deficiency anemia 01/10/2010 8 Plantar fascial fibromatosis 10/13/2008 Disorders of bursae and tend ons in shoulder region, unspecified 12/02/2006 09/29/2015 documented as of this encounter (statuses as of 05/28/2022) [facility]12[facility]2019 History of Past illness Narrative* Problem Noted Date Resolved Date Asthmatic bronchitis 11/11/2018 10/22/2020 Bursitis of right shoulder 09/29/201810/22 Lateral femoral cutaneous neuropathy, right 03/01/201810/22/2020 Constipation, unspecified 08/14/20172017 Low back pain 08/14/2017 06/19/2018 Migraine without status migrainosus, not intract able 08/14/2017 10/22/2020 Right-sided chest wall pain 01/14/201706/02 Therapeutic opioid induced constipation 09/25/19 17 06/19/2018 Bleeding hemorrhoids 09/25/2016 06/19/2018 Hypoglycemia after GI (gastrointestinal) surgery 04/30/2014 09/29/2015 Incisional hernia 04/06/2014 10/22/2020 Abdominal pain, unspecified site 04/14/2013 09/29/2015 Pubic bone pain 04/14/2013 09/29/2015 Diabetes Mellitus 04/20/2010 10/14/2014 Diabetes mellitus 04/20/2010 11/22/2016 Iron deficiency anemia 01/10/2010 8 Plantar fascial fibromatosis 10/13/2008 Disorders of bursae and tend ons in shoulder region, unspecified 12/02/2006 09/29/2015 documented as of this encounter (statuses as of 06/29/2022) [facility]2019 History of Past illness Narrative* Problem Noted Date Resolved Date Asthmatic bronchitis 11/11/2018 10/22/2020 Bursitis of right shoulder 09/29/201810/22 Lateral femoral cutaneous neuropathy, right 10/3110/22/2020 Constipation, unspecified 08/14/20172017 Low back pain 08/14/2017 06/19/2018 Migraine without status migrainosus, not intract able 08/14/2017 10/22/2020 Right-sided chest wall pain 01/14/201706/02 Therapeutic opioid induced constipation 09/25/19 17 06/19/2018 Bleeding hemorrhoids 09/25/2016 06/19/2018 Hypoglycemia after GI (gastrointestinal) surgery 04/30/2014 09/29/2015 Incisional hernia 04/06/2014 10/22/2020 Abdominal pain, unspecified site 04/14/2013 09/29/2015 Pubic bone pain 04/14/2013 09/29/2015 Diabetes Mellitus 04/20/2010 10/14/2014 Diabetes mellitus 04/20/2010 11/22/2016 Iron deficiency anemia 01/10/2010 8 Plantar fascial fibromatosis 10/13/2008 Disorders of bursae and tend ons in shoulder region, unspecified 12/02/2006 09/29/2015 documented as of this encounter (statuses as of 07/04/2022) [facility]2019 History of Past illness Narrative* Problem Noted Date Resolved Date Asthmatic bronchitis 11/11/2018 10/22/2020 Bursitis of right shoulder 09/29/201810/22 Lateral femoral cutaneous neuropathy, right 10/3110/22/2020 Constipation, unspecified 08/14/20172017 Low back pain 08/14/2017 06/19/2018 Migraine without status migrainosus, not intract able 08/14/2017 10/22/2020 Right-sided chest wall pain 01/14/201706/02 Therapeutic opioid induced constipation 09/25/1906/19/2018 Bleeding hemorrhoids 09/25/2016 06/19/2018 Hypoglycemia after GI (gastrointestinal) surgery 04/30/2014 09/29/2015 Incisional hernia 04/06/2014 10/22/2020 Abdominal pain, unspecified site 04/14/2013 09/29/2015 Pubic bone pain 04/14/2013 09/29/2015 Diabetes Mellitus 04/20/2010 10/14/2014 Diabetes mellitus 04/20/2010 11/22/2016 Iron deficiency anemia 01/10/2010 8 Plantar fascial fibromatosis 10/13/2008 Disorders of bursae and tend ons in shoulder region, unspecified 12/02/2006 09/29/2015 documented as of this encounter (statuses as of 07/04/2022) [facility]2019 History of Past illness Narrative* Problem Noted Date Resolved Date Asthmatic bronchitis 11/11/2018 10/22/2020 Bursitis of right shoulder 09/29/201810/22 Lateral femoral cutaneous neuropathy, right 10/3110/22/2020 Constipation, unspecified 08/14/20172017 Low back pain 08/14/2017 06/19/2018 Migraine without status migrainosus, not intract able 08/14/2017 10/22/2020 Right-sided chest wall pain 01/14/201706/02 Therapeutic opioid induced constipation 09/25/19 17 06/19/2018 Bleeding hemorrhoids 09/25/2016 06/19/2018 Hypoglycemia after GI (gastrointestinal) surgery 04/30/2014 09/29/2015 Incisional hernia 04/06/2014 10/22/2020 Abdominal pain, unspecified site 04/14/2013 09/29/2015 Pubic bone pain 04/14/2013 09/29/2015 Diabetes Mellitus 04/20/2010 10/14/2014 Diabetes mellitus 04/20/2010 11/22/2016 Iron deficiency anemia 01/10/2010 8 Plantar fascial fibromatosis 10/13/2008 Disorders of bursae and tend ons in shoulder region, unspecified 12/02/2006 09/29/2015 documented as of this encounter (statuses as of 07/09/2022) [facility]2019 History of Past illness Narrative* Problem Noted Date Resolved Date Asthmatic bronchitis 11/11/2018 10/22/2020 Bursitis of right shoulder 09/29/201810/22 Lateral femoral cutaneous neuropathy, right 10/3110/22/2020 Constipation, unspecified 08/14/20172017 Low back pain 08/14/2017 06/19/2018 Migraine without status migrainosus, not intract able 08/14/2017 10/22/2020 Right-sided chest wall pain 01/14/201706/02 Therapeutic opioid induced constipation 09/25/19 17 06/19/2018 Bleeding hemorrhoids 09/25/2016 06/19/2018 Hypoglycemia after GI (gastrointestinal) surgery 04/30/2014 09/29/2015 Incisional hernia 04/06/2014 10/22/2020 Abdominal pain, unspecified site 04/14/2013 09/29/2015 Pubic bone pain 04/14/2013 09/29/2015 Diabetes Mellitus 04/20/2010 10/14/2014 Diabetes mellitus 04/20/2010 11/22/2016 Iron deficiency anemia 01/10/2010 8 Plantar fascial fibromatosis 10/13/2008 Disorders of bursae and tend ons in shoulder region, unspecified 12/02/2006 09/29/2015 documented as of this encounter (statuses as of 07/12/2022) [facility]2019 History of Past illness Narrative* Problem Noted Date Resolved Date Asthmatic bronchitis 11/11/2018 10/22/2020 Bursitis of right shoulder 09/29/201810/22 Lateral femoral cutaneous neuropathy, right 10/3110/22/2020 Constipation, unspecified 08/14/20172017 Low back pain 08/14/2017 06/19/2018 Migraine without status migrainosus, not intract able 08/14/2017 10/22/2020 Right-sided chest wall pain 01/14/201706/02 Therapeutic opioid induced constipation 09/25/1906/19/2018 Bleeding hemorrhoids 09/25/2016 06/19/2018 Hypoglycemia after GI (gastrointestinal) surgery 04/30/2014 09/29/2015 Incisional hernia 04/06/2014 10/22/2020 Abdominal pain, unspecified site 04/14/2013 09/29/2015 Pubic bone pain 04/14/2013 09/29/2015 Diabetes Mellitus 04/20/2010 10/14/2014 Diabetes mellitus 04/20/2010 11/22/2016 Iron deficiency anemia 01/10/2010 8 Plantar fascial fibromatosis 10/13/2008 Disorders of bursae and tend ons in shoulder region, unspecified 12/02/2006 09/29/2015 documented as of this encounter (statuses as of 07/12/2022) [facility] History of Past illness Narrative* Problem Noted Date Resolved Date Asthmatic bronchitis 11/11/2018 10/22/2020 Bursitis of right shoulder 09/29/201810/22 Lateral femoral cutaneous neuropathy, right 10/3110/22/2020 Constipation, unspecified 08/14/20172017 Low back pain 08/14/2017 06/19/2018 Migraine without status migrainosus, not intract able 08/14/2017 10/22/2020 Right-sided chest wall pain 01/14/201706/02 Therapeutic opioid induced constipation 09/25/19 17 06/19/2018 Bleeding hemorrhoids 09/25/2016 06/19/2018 Hypoglycemia after GI (gastrointestinal) surgery 04/30/2014 09/29/2015 Incisional hernia 04/06/2014 10/22/2020 Abdominal pain, unspecified site 04/14/2013 09/29/2015 Pubic bone pain 04/14/2013 09/29/2015 Diabetes Mellitus 04/20/2010 10/14/2014 Diabetes mellitus 04/20/2010 11/22/2016 Iron deficiency anemia 01/10/2010 8 Plantar fascial fibromatosis 10/13/2008 Disorders of bursae and tend ons in shoulder region, unspecified 12/02/2006 09/29/2015 documented as of this encounter (statuses as of 07/17/2022) [facility] History of Past illness Narrative* Problem Noted Date Resolved Date Asthmatic bronchitis 11/11/2018 10/22/2020 Bursitis of right shoulder 09/29/201810/22 Lateral femoral cutaneous neuropathy, right 10/3110/22/2020 Constipation, unspecified 08/14/20172017 Low back pain 08/14/2017 06/19/2018 Migraine without status migrainosus, not intract able 08/14/2017 10/22/2020 Right-sided chest wall pain 01/14/201706/02 Therapeutic opioid induced constipation 09/25/19 17 06/19/2018 Bleeding hemorrhoids 09/25/2016 06/19/2018 Hypoglycemia after GI (gastrointestinal) surgery 04/30/2014 09/29/2015 Incisional hernia 04/06/2014 10/22/2020 Abdominal pain, unspecified site 04/14/2013 09/29/2015 Pubic bone pain 04/14/2013 09/29/2015 Diabetes Mellitus 04/20/2010 10/14/2014 Diabetes mellitus 04/20/2010 11/22/2016 Iron deficiency anemia 01/10/2010 8 Plantar fascial fibromatosis 10/13/2008 Disorders of bursae and tend ons in shoulder region, unspecified 12/02/2006 09/29/2015 documented as of this encounter (statuses as of 07/19/2022) [facility]2019 History of Past illness Narrative* Problem Noted Date Resolved Date Asthmatic bronchitis 11/11/2018 10/22/2020 Bursitis of right shoulder 09/29/201810/22 Lateral femoral cutaneous neuropathy, right /01/201810/22/2020 Constipation, unspecified 08/14/20172017 Low back pain 08/14/2017 06/19/2018 Migraine without status migrainosus, not intract able 08/14/2017 10/22/2020 Right-sided chest wall pain 01/14/201706/02 Therapeutic opioid induced constipation 09/25/19 17 06/19/2018 Bleeding hemorrhoids 09/25/2016 06/19/2018 Hypoglycemia after GI (gastrointestinal) surgery 04/30/2014 09/29/2015 Incisional hernia 04/06/2014 10/22/2020 Abdominal pain, unspecified site 04/14/2013 09/29/2015 Pubic bone pain 04/14/2013 09/29/2015 Diabetes Mellitus 04/20/2010 10/14/2014 Diabetes mellitus 04/20/2010 11/22/2016 Iron deficiency anemia 01/10/2010 8 Plantar fascial fibromatosis 10/13/2008 Disorders of bursae and tend ons in shoulder region, unspecified 12/02/2006 09/29/2015 documented as of this encounter (statuses as of 07/21/2022) [facility]2019 History of Past illness Narrative* Problem Noted Date Resolved Date Asthmatic bronchitis 11/11/2018 10/22/2020 Bursitis of right shoulder 09/29/201810/22 Lateral femoral cutaneous neuropathy, right 10/3110/22/2020 Constipation, unspecified 08/14/20172017 Low back pain 08/14/2017 06/19/2018 Migraine without status migrainosus, not intract able 08/14/2017 10/22/2020 Right-sided chest wall pain 01/14/201706/02 Therapeutic opioid induced constipation 09/25/19 17 06/19/2018 Bleeding hemorrhoids 09/25/2016 06/19/2018 Hypoglycemia after GI (gastrointestinal) surgery 04/30/2014 09/29/2015 Incisional hernia 04/06/2014 10/22/2020 Abdominal pain, unspecified site 04/14/2013 09/29/2015 Pubic bone pain 04/14/2013 09/29/2015 Diabetes Mellitus 04/20/2010 10/14/2014 Diabetes mellitus 04/20/2010 11/22/2016 Iron deficiency anemia 01/10/2010 8 Plantar fascial fibromatosis 10/13/2008 Disorders of bursae and tend ons in shoulder region, unspecified 12/02/2006 09/29/2015 documented as of this encounter (statuses as of 07/24/2022) [facility] History of Past illness Narrative* Problem Noted Date Resolved Date Asthmatic bronchitis 11/11/2018 10/22/2020 Bursitis of right shoulder 09/29/201810/22 Lateral femoral cutaneous neuropathy, right 10/3110/22/2020 Constipation, unspecified 08/14/20172017 Low back pain 08/14/2017 06/19/2018 Migraine without status migrainosus, not intract able 08/14/2017 10/22/2020 Right-sided chest wall pain 01/14/201706/02 Therapeutic opioid induced constipation 09/25/19 17 06/19/2018 Bleeding hemorrhoids 09/25/2016 06/19/2018 Hypoglycemia after GI (gastrointestinal) surgery 04/30/2014 09/29/2015 Incisional hernia 04/06/2014 10/22/2020 Abdominal pain, unspecified site 04/14/2013 09/29/2015 Pubic bone pain 04/14/2013 09/29/2015 Diabetes Mellitus 04/20/2010 10/14/2014 Diabetes mellitus 04/20/2010 11/22/2016 Iron deficiency anemia 01/10/2010 8 Plantar fascial fibromatosis 10/13/2008 Disorders of bursae and tend ons in shoulder region, unspecified 12/02/2006 09/29/2015 documented as of this encounter (statuses as of 07/27/2022) [facility]2019 History of Past illness Narrative* Problem Noted Date Resolved Date Asthmatic bronchitis 11/11/2018 10/22/2020 Bursitis of right shoulder 09/29/201810/22 Lateral femoral cutaneous neuropathy, right 10/3110/22/2020 Constipation, unspecified 08/14/20172017 Low back pain 08/14/2017 06/19/2018 Migraine without status migrainosus, not intract able 08/14/2017 10/22/2020 Right-sided chest wall pain 01/14/201706/02 Therapeutic opioid induced constipation 09/25/19 17 06/19/2018 Bleeding hemorrhoids 09/25/2016 06/19/2018 Hypoglycemia after GI (gastrointestinal) surgery 04/30/2014 09/29/2015 Incisional hernia 04/06/2014 10/22/2020 Abdominal pain, unspecified site 04/14/2013 09/29/2015 Pubic bone pain 04/14/2013 09/29/2015 Diabetes Mellitus 04/20/2010 10/14/2014 Diabetes mellitus 04/20/2010 11/22/2016 Iron deficiency anemia 01/10/2010 8 Plantar fascial fibromatosis 10/13/2008 Disorders of bursae and tend ons in shoulder region, unspecified 12/02/2006 09/29/2015 documented as of this encounter (statuses as of 09/04/2022) [facility]2019 History of Past illness Narrative* Problem Noted Date Resolved Date Asthmatic bronchitis 11/11/2018 10/22/2020 Bursitis of right shoulder 09/29/201810/22 Lateral femoral cutaneous neuropathy, right 10/3110/22/2020 Constipation, unspecified 08/14/20172017 Low back pain 08/14/2017 06/19/2018 Migraine without status migrainosus, not intract able 08/14/2017 10/22/2020 Right-sided chest wall pain 01/14/201706/02 Therapeutic opioid induced constipation 09/25/19 17 06/19/2018 Bleeding hemorrhoids 09/25/2016 06/19/2018 Hypoglycemia after GI (gastrointestinal) surgery 04/30/2014 09/29/2015 Incisional hernia 04/06/2014 10/22/2020 Abdominal pain, unspecified site 04/14/2013 09/29/2015 Pubic bone pain 04/14/2013 09/29/2015 Diabetes Mellitus 04/20/2010 10/14/2014 Diabetes mellitus 04/20/2010 11/22/2016 Iron deficiency anemia 01/10/2010 8 Plantar fascial fibromatosis 10/13/2008 Disorders of bursae and tend ons in shoulder region, unspecified 12/02/2006 09/29/2015 documented as of this encounter (statuses as of 09/05/2022) [facility]2019 History of Past illness Narrative* Problem Noted Date Resolved Date Asthmatic bronchitis 11/11/2018 10/22/2020 Bursitis of right shoulder 09/29/201810/22 Lateral femoral cutaneous neuropathy, right 10/3110/22/2020 Constipation, unspecified 08/14/20172017 Low back pain 08/14/2017 06/19/2018 Migraine without status migrainosus, not intract able 08/14/2017 10/22/2020 Right-sided chest wall pain 01/14/201706/02 Therapeutic opioid induced constipation 09/25/1906/19/2018 Bleeding hemorrhoids 09/25/2016 06/19/2018 Hypoglycemia after GI (gastrointestinal) surgery 04/30/2014 09/29/2015 Incisional hernia 04/06/2014 10/22/2020 Abdominal pain, unspecified site 04/14/2013 09/29/2015 Pubic bone pain 04/14/2013 09/29/2015 Diabetes Mellitus 04/20/2010 10/14/2014 Diabetes mellitus 04/20/2010 11/22/2016 Iron deficiency anemia 01/10/2010 8 Plantar fascial fibromatosis 10/13/2008 Disorders of bursae and tend ons in shoulder region, unspecified 12/02/2006 09/29/2015 documented as of this encounter (statuses as of 09/06/2022) [facility] History of Past illness Narrative* Problem Noted Date Resolved Date Asthmatic bronchitis 11/11/2018 10/22/2020 Bursitis of right shoulder 09/29/201810/22 Lateral femoral cutaneous neuropathy, right 10/3110/22/2020 Constipation, unspecified 08/14/20172017 Low back pain 08/14/2017 06/19/2018 Migraine without status migrainosus, not intract able 08/14/2017 10/22/2020 Right-sided chest wall pain 01/14/201706/02 Therapeutic opioid induced constipation 09/25/19 17 06/19/2018 Bleeding hemorrhoids 09/25/2016 06/19/2018 Hypoglycemia after GI (gastrointestinal) surgery 04/30/2014 09/29/2015 Incisional hernia 04/06/2014 10/22/2020 Abdominal pain, unspecified site 04/14/2013 09/29/2015 Pubic bone pain 04/14/2013 09/29/2015 Diabetes Mellitus 04/20/2010 10/14/2014 Diabetes mellitus 04/20/2010 11/22/2016 Iron deficiency anemia 01/10/2010 8 Plantar fascial fibromatosis 10/13/2008 Disorders of bursae and tend ons in shoulder region, unspecified 12/02/2006 09/29/2015 documented as of this encounter (statuses as of 09/19/2022) [facility] History of Past illness Narrative* Problem Noted Date Resolved Date Asthmatic bronchitis 11/11/2018 10/22/2020 Bursitis of right shoulder 09/29/201810/22 Lateral femoral cutaneous neuropathy, right 10/3110/22/2020 Constipation, unspecified 08/14/20172017 Low back pain 08/14/2017 06/19/2018 Migraine without status migrainosus, not intract able 08/14/2017 10/22/2020 Right-sided chest wall pain 01/14/201706/02 Therapeutic opioid induced constipation 09/25/19 17 06/19/2018 Bleeding hemorrhoids 09/25/2016 06/19/2018 Hypoglycemia after GI (gastrointestinal) surgery 04/30/2014 09/29/2015 Incisional hernia 04/06/2014 10/22/2020 Abdominal pain, unspecified site 04/14/2013 09/29/2015 Pubic bone pain 04/14/2013 09/29/2015 Diabetes Mellitus 04/20/2010 10/14/2014 Diabetes mellitus 04/20/2010 11/22/2016 Iron deficiency anemia 01/10/2010 8 Plantar fascial fibromatosis 10/13/2008 Disorders of bursae and tend ons in shoulder region, unspecified 12/02/2006 09/29/2015 documented as of this encounter (statuses as of 09/27/2022) [facility] History of Past illness Narrative* Problem Noted Date Resolved Date Asthmatic bronchitis 11/11/2018 10/22/2020 Bursitis of right shoulder 09/29/201810/22 Lateral femoral cutaneous neuropathy, right 10/3110/22/2020 Constipation, unspecified 08/14/20172017 Low back pain 08/14/2017 06/19/2018 Migraine without status migrainosus, not intract able 08/14/2017 10/22/2020 Right-sided chest wall pain 01/14/201706/02 Therapeutic opioid induced constipation 09/25/19 17 06/19/2018 Bleeding hemorrhoids 09/25/2016 06/19/2018 Hypoglycemia after GI (gastrointestinal) surgery 04/30/2014 09/29/2015 Incisional hernia 04/06/2014 10/22/2020 Abdominal pain, unspecified site 04/14/2013 09/29/2015 Pubic bone pain 04/14/2013 09/29/2015 Diabetes Mellitus 04/20/2010 10/14/2014 Diabetes mellitus 04/20/2010 11/22/2016 Iron deficiency anemia 01/10/2010 8 Plantar fascial fibromatosis 10/13/2008 Disorders of bursae and tend ons in shoulder region, unspecified 12/02/2006 09/29/2015 documented as of this encounter (statuses as of 10/09/2022) [facility] History of Past illness Narrative* Problem Noted Date Resolved Date Asthmatic bronchitis 11/11/2018 10/22/2020 Bursitis of right shoulder 09/29/201810/22 Lateral femoral cutaneous neuropathy, right 10/3110/22/2020 Constipation, unspecified 08/14/20172017 Low back pain 08/14/2017 06/19/2018 Migraine without status migrainosus, not intract able 08/14/2017 10/22/2020 Right-sided chest wall pain 01/14/201706/02 Therapeutic opioid induced constipation 09/25/19 17 06/19/2018 Bleeding hemorrhoids 09/25/2016 06/19/2018 Hypoglycemia after GI (gastrointestinal) surgery 04/30/2014 09/29/2015 Incisional hernia 04/06/2014 10/22/2020 Abdominal pain, unspecified site 04/14/2013 09/29/2015 Pubic bone pain 04/14/2013 09/29/2015 Diabetes Mellitus 04/20/2010 10/14/2014 Diabetes mellitus 04/20/2010 11/22/2016 Iron deficiency anemia 01/10/2010 8 Plantar fascial fibromatosis 10/13/2008 Disorders of bursae and tend ons in shoulder region, unspecified 12/02/2006 09/29/2015 documented as of this encounter (statuses as of 10/11/2022) [facility] History of Past illness Narrative* Problem Noted Date Resolved Date Asthmatic bronchitis 11/11/2018 10/22/2020 Bursitis of right shoulder 09/29/201810/22 Lateral femoral cutaneous neuropathy, right 10/3110/22/2020 Constipation, unspecified 08/14/20172017 Low back pain 08/14/2017 06/19/2018 Migraine without status migrainosus, not intract able 08/14/2017 10/22/2020 Right-sided chest wall pain 01/14/201706/02 Therapeutic opioid induced constipation 09/25/19 17 06/19/2018 Bleeding hemorrhoids 09/25/2016 06/19/2018 Hypoglycemia after GI (gastrointestinal) surgery 04/30/2014 09/29/2015 Incisional hernia 04/06/2014 10/22/2020 Abdominal pain, unspecified site 04/14/2013 09/29/2015 Pubic bone pain 04/14/2013 09/29/2015 Diabetes Mellitus 04/20/2010 10/14/2014 Diabetes mellitus 04/20/2010 11/22/2016 Iron deficiency anemia 01/10/2010 8 Plantar fascial fibromatosis 10/13/2008 Disorders of bursae and tend ons in shoulder region, unspecified 12/02/2006 09/29/2015 documented as of this encounter (statuses as of 11/01/2022) [facility] History of Past illness Narrative* Problem Noted Date Resolved Date Asthmatic bronchitis 11/11/2018 10/22/2020 Bursitis of right shoulder 09/29/201810/22 Lateral femoral cutaneous neuropathy, right 10/3110/22/2020 Constipation, unspecified 08/14/20172017 Low back pain 08/14/2017 06/19/2018 Migraine without status migrainosus, not intract able 08/14/2017 10/22/2020 Right-sided chest wall pain 01/14/201706/02 Therapeutic opioid induced constipation 09/25/19 17 06/19/2018 Bleeding hemorrhoids 09/25/2016 06/19/2018 Hypoglycemia after GI (gastrointestinal) surgery 04/30/2014 09/29/2015 Incisional hernia 04/06/2014 10/22/2020 Abdominal pain, unspecified site 04/14/2013 09/29/2015 Pubic bone pain 04/14/2013 09/29/2015 Diabetes Mellitus 04/20/2010 10/14/2014 Diabetes mellitus 04/20/2010 11/22/2016 Iron deficiency anemia 01/10/2010 8 Plantar fascial fibromatosis 10/13/2008 Disorders of bursae and tend ons in shoulder region, unspecified 12/02/2006 09/29/2015 documented as of this encounter (statuses as of 11/08/2022) [facility] History of Past illness Narrative* Problem Noted Date Resolved Date Asthmatic bronchitis 11/11/2018 10/22/2020 Bursitis of right shoulder 09/29/201810/22 Lateral femoral cutaneous neuropathy, right 10/3110/22/2020 Constipation, unspecified 08/14/20172017 Low back pain 08/14/2017 06/19/2018 Migraine without status migrainosus, not intract able 08/14/2017 10/22/2020 Right-sided chest wall pain 01/14/201706/02 Therapeutic opioid induced constipation 09/25/19 17 06/19/2018 Bleeding hemorrhoids 09/25/2016 06/19/2018 Hypoglycemia after GI (gastrointestinal) surgery 04/30/2014 09/29/2015 Incisional hernia 04/06/2014 10/22/2020 Abdominal pain, unspecified site 04/14/2013 09/29/2015 Pubic bone pain 04/14/2013 09/29/2015 Diabetes Mellitus 04/20/2010 10/14/2014 Diabetes mellitus 04/20/2010 11/22/2016 Iron deficiency anemia 01/10/2010 8 Plantar fascial fibromatosis 10/13/2008 Disorders of bursae and tend ons in shoulder region, unspecified 12/02/2006 09/29/2015 documented as of this encounter (statuses as of 11/09/2022) [facility]03-12-2019 History of Past illness Narrative* Problem Noted Date Resolved Date Asthmatic bronchitis 11/11/2018 10/22/2020 Bursitis of right shoulder 09/29/201810/22 Lateral femoral cutaneous neuropathy, right 10/3110/22/2020 Constipation, unspecified 08/14/20172017 Low back pain 08/14/2017 06/19/2018 Migraine without status migrainosus, not intract able 08/14/2017 10/22/2020 Right-sided chest wall pain 01/14/201706/02 Therapeutic opioid induced constipation 09/25/1906/19/2018 Bleeding hemorrhoids 09/25/2016 06/19/2018 Hypoglycemia after GI (gastrointestinal) surgery 04/30/2014 09/29/2015 Incisional hernia 04/06/2014 10/22/2020 Abdominal pain, unspecified site 04/14/2013 09/29/2015 Pubic bone pain 04/14/2013 09/29/2015 Diabetes Mellitus 04/20/2010 10/14/2014 Diabetes mellitus 04/20/2010 11/22/2016 Iron deficiency anemia 01/10/2010 8 Plantar fascial fibromatosis 10/13/2008 Disorders of bursae and tend ons in shoulder region, unspecified 12/02/2006 09/29/2015 documented as of this encounter (statuses as of 11/10/2022) [facility]03-12[facility]2019 History of Past illness Narrative* Problem Noted Date Resolved Date Asthmatic bronchitis 11/11/2018 10/22/2020 Bursitis of right shoulder 09/29/201810/22 Lateral femoral cutaneous neuropathy, right 10/3110/22/2020 Constipation, unspecified 08/14/20172017 Low back pain 08/14/2017 06/19/2018 Migraine without status migrainosus, not intract able 08/14/2017 10/22/2020 Right-sided chest wall pain 01/14/201706/02 Therapeutic opioid induced constipation 09/25/19 17 06/19/2018 Bleeding hemorrhoids 09/25/2016 06/19/2018 Hypoglycemia after GI (gastrointestinal) surgery 04/30/2014 09/29/2015 Incisional hernia 04/06/2014 10/22/2020 Abdominal pain, unspecified site 04/14/2013 09/29/2015 Pubic bone pain 04/14/2013 09/29/2015 Diabetes Mellitus 04/20/2010 10/14/2014 Diabetes mellitus 04/20/2010 11/22/2016 Iron deficiency anemia 01/10/2010 8 Plantar fascial fibromatosis 10/13/2008 Disorders of bursae and tend ons in shoulder region, unspecified 12/02/2006 09/29/2015 documented as of this encounter (statuses as of 11/14/2022) [facility]2019 History of Past illness Narrative* Problem Noted Date Resolved Date Asthmatic bronchitis 11/11/2018 10/22/2020 Bursitis of right shoulder 09/29/201810/22 Lateral femoral cutaneous neuropathy, right 10/3110/22/2020 Constipation, unspecified 08/14/20172017 Low back pain 08/14/2017 06/19/2018 Migraine without status migrainosus, not intract able 08/14/2017 10/22/2020 Right-sided chest wall pain 01/14/201706/02 Therapeutic opioid induced constipation 09/25/19 17 06/19/2018 Bleeding hemorrhoids 09/25/2016 06/19/2018 Hypoglycemia after GI (gastrointestinal) surgery 04/30/2014 09/29/2015 Incisional hernia 04/06/2014 10/22/2020 Abdominal pain, unspecified site 04/14/2013 09/29/2015 Pubic bone pain 04/14/2013 09/29/2015 Diabetes Mellitus 04/20/2010 10/14/2014 Diabetes mellitus 04/20/2010 11/22/2016 Iron deficiency anemia 01/10/2010 8 Plantar fascial fibromatosis 10/13/2008 Disorders of bursae and tend ons in shoulder region, unspecified 12/02/2006 09/29/2015 documented as of this encounter (statuses as of 11/28/2022) [facility]2019 History of Past illness Narrative* Problem Noted Date Resolved Date Asthmatic bronchitis 11/11/2018 10/22/2020 Bursitis of right shoulder 09/29/201810/22 Lateral femoral cutaneous neuropathy, right 01/201810/22/2020 Constipation, unspecified 08/14/20172017 Low back pain 08/14/2017 06/19/2018 Migraine without status migrainosus, not intract able 08/14/2017 10/22/2020 Right-sided chest wall pain 01/14/201706/02 Therapeutic opioid induced constipation 09/25/19 17 06/19/2018 Bleeding hemorrhoids 09/25/2016 06/19/2018 Hypoglycemia after GI (gastrointestinal) surgery 04/30/2014 09/29/2015 Incisional hernia 04/06/2014 10/22/2020 Abdominal pain, unspecified site 04/14/2013 09/29/2015 Pubic bone pain 04/14/2013 09/29/2015 Diabetes Mellitus 04/20/2010 10/14/2014 Diabetes mellitus 04/20/2010 11/22/2016 Iron deficiency anemia 01/10/2010 8 Plantar fascial fibromatosis 10/13/2008 Disorders of bursae and tend ons in shoulder region, unspecified 12/02/2006 09/29/2015 documented as of this encounter (statuses as of 12/27/2022) [facility]2019 History of Past illness Narrative* Problem Noted Date Resolved Date Asthmatic bronchitis 11/11/2018 10/22/2020 Bursitis of right shoulder 09/29/201810/22 Lateral femoral cutaneous neuropathy, right 10/3110/22/2020 Constipation, unspecified 08/14/20172017 Low back pain 08/14/2017 06/19/2018 Migraine without status migrainosus, not intract able 08/14/2017 10/22/2020 Right-sided chest wall pain 01/14/201706/02 Therapeutic opioid induced constipation 09/25/19 17 06/19/2018 Bleeding hemorrhoids 09/25/2016 06/19/2018 Hypoglycemia after GI (gastrointestinal) surgery 04/30/2014 09/29/2015 Incisional hernia 04/06/2014 10/22/2020 Abdominal pain, unspecified site 04/14/2013 09/29/2015 Pubic bone pain 04/14/2013 09/29/2015 Diabetes Mellitus 04/20/2010 10/14/2014 Diabetes mellitus 04/20/2010 11/22/2016 Iron deficiency anemia 01/10/2010 8 Plantar fascial fibromatosis 10/13/2008 Disorders of bursae and tend ons in shoulder region, unspecified 12/02/2006 09/29/2015 documented as of this encounter (statuses as of 12/27/2022) [facility] History of Past illness Narrative* Problem Noted Date Resolved Date Asthmatic bronchitis 11/11/2018 10/22/2020 Bursitis of right shoulder 09/29/201810/22 Lateral femoral cutaneous neuropathy, right 10/3110/22/2020 Constipation, unspecified 08/14/20172017 Low back pain 08/14/2017 06/19/2018 Migraine without status migrainosus, not intract able 08/14/2017 10/22/2020 Right-sided chest wall pain 01/14/201706/02 Therapeutic opioid induced constipation 09/25/19 17 06/19/2018 Bleeding hemorrhoids 09/25/2016 06/19/2018 Hypoglycemia after GI (gastrointestinal) surgery 04/30/2014 09/29/2015 Incisional hernia 04/06/2014 10/22/2020 Abdominal pain, unspecified site 04/14/2013 09/29/2015 Pubic bone pain 04/14/2013 09/29/2015 Diabetes Mellitus 04/20/2010 10/14/2014 Diabetes mellitus 04/20/2010 11/22/2016 Iron deficiency anemia 01/10/2010 8 Plantar fascial fibromatosis 10/13/2008 Disorders of bursae and tend ons in shoulder region, unspecified 12/02/2006 09/29/2015 documented as of this encounter (statuses as of 02/08/2023) [facility]03[facility]12[facility]2019 History of Past illness Narrative* Problem Noted Date Resolved Date Asthmatic bronchitis 11/11/2018 10/22/2020 Bursitis of right shoulder 09/29/201810/22 Lateral femoral cutaneous neuropathy, right 10/3110/22/2020 Constipation, unspecified 08/14/20172017 Low back pain 08/14/2017 06/19/2018 Migraine without status migrainosus, not intract able 08/14/2017 10/22/2020 Right-sided chest wall pain 01/14/201706/02 Therapeutic opioid induced constipation 09/25/19 17 06/19/2018 Bleeding hemorrhoids 09/25/2016 06/19/2018 Hypoglycemia after GI (gastrointestinal) surgery 04/30/2014 09/29/2015 Incisional hernia 04/06/2014 10/22/2020 Abdominal pain, unspecified site 04/14/2013 09/29/2015 Pubic bone pain 04/14/2013 09/29/2015 Diabetes Mellitus 04/20/2010 10/14/2014 Diabetes mellitus 04/20/2010 11/22/2016 Iron deficiency anemia 01/10/2010 8 Plantar fascial fibromatosis 10/13/2008 Disorders of bursae and tend ons in shoulder region, unspecified 12/02/2006 09/29/2015 documented as of this encounter (statuses as of 02/14/2023) [facility]2019 History of Past illness Narrative* Problem Noted Date Resolved Date Asthmatic bronchitis 11/11/2018 10/22/2020 Bursitis of right shoulder 09/29/201810/22 Lateral femoral cutaneous neuropathy, right 10/3110/22/2020 Constipation, unspecified 08/14/20172017 Low back pain 08/14/2017 06/19/2018 Migraine without status migrainosus, not intract able 08/14/2017 10/22/2020 Right-sided chest wall pain 01/14/201706/02 Therapeutic opioid induced constipation 09/25/19 17 06/19/2018 Bleeding hemorrhoids 09/25/2016 06/19/2018 Hypoglycemia after GI (gastrointestinal) surgery 04/30/2014 09/29/2015 Incisional hernia 04/06/2014 10/22/2020 Abdominal pain, unspecified site 04/14/2013 09/29/2015 Pubic bone pain 04/14/2013 09/29/2015 Diabetes Mellitus 04/20/2010 10/14/2014 Diabetes mellitus 04/20/2010 11/22/2016 Iron deficiency anemia 01/10/2010 8 Plantar fascial fibromatosis 10/13/2008 Disorders of bursae and tend ons in shoulder region, unspecified 12/02/2006 09/29/2015 documented as of this encounter (statuses as of 02/25/2023) [facility]2019 History of Past illness Narrative* Problem Noted Date Resolved Date Asthmatic bronchitis 11/11/2018 10/22/2020 Bursitis of right shoulder 09/29/201810/22 Lateral femoral cutaneous neuropathy, right 10/3110/22/2020 Constipation, unspecified 08/14/20172017 Low back pain 08/14/2017 06/19/2018 Migraine without status migrainosus, not intract able 08/14/2017 10/22/2020 Right-sided chest wall pain 01/14/201706/02 Therapeutic opioid induced constipation 09/25/19 17 06/19/2018 Bleeding hemorrhoids 09/25/2016 06/19/2018 Hypoglycemia after GI (gastrointestinal) surgery 04/30/2014 09/29/2015 Incisional hernia 04/06/2014 10/22/2020 Abdominal pain, unspecified site 04/14/2013 09/29/2015 Pubic bone pain 04/14/2013 09/29/2015 Diabetes Mellitus 04/20/2010 10/14/2014 Diabetes mellitus 04/20/2010 11/22/2016 Iron deficiency anemia 01/10/2010 8 Plantar fascial fibromatosis 10/13/2008 Disorders of bursae and tend ons in shoulder region, unspecified 12/02/2006 09/29/2015 documented as of this encounter (statuses as of 03/01/2023) [facility]03-12[facility]2019 History of Past illness Narrative* Problem Noted Date Diagnosed Date Resolved Date Asthmatic bronchitis 11/11/2018 021 Bursitis of right shoulder 09/29/2018 0 10/22/2020 Lateral femoral cutaneous neuropathy, right 11/15/2017 10/22/2020 Constipation, unspecified 08/14/2017 Low back pain 08/14/2017 06/19/2018 Migraine without status migr ainosus, not intractable 08/14/2017 10/22/2020 Right-sided chest wall pain 01/14/2017 06/19/2018 Therapeutic opioid induced constipation 09/25/2016 06/19/2018 Bleeding hemorrhoids 09/25/2016 018 Hypoglycemia after GI (gastr ointestinal) surgery 04/30/2014 09/29/2015 Incisional hernia 04/06/2014 10/22/2020 Abdominal pain, unspecified site 04/14/2013 09/29/2015 Pubic bone pain 04/14/2013 09/29/2015 Diabetes Mellitus 04/20/2010 10/14/2014 Diabetes mellitus 04/20/2010 11/22/2016 Iron deficiency anemia 01/10/201006/19 Plantar fascial fibromatosis 10/13/2008 09/29/2015 Disorders of bursae and tend ons in shoulder region, unspecified 12/02/2006 09/29/2015 documented as of this encounter (statuses as of 03/12/2023) [facility]03-12[facility]2019 History of Past illness Narrative* Problem Noted Date Diagnosed Date Resolved Date Asthmatic bronchitis 11/11/2018 021 Bursitis of right shoulder 09/29/2018 0 10/22/2020 Lateral femoral cutaneous neuropathy, right 11/15/2017 10/22/2020 Constipation, unspecified 08/14/2017 Low back pain 08/14/2017 06/19/2018 Migraine without status migr ainosus, not intractable 08/14/2017 10/22/2020 Right-sided chest wall pain 01/14/2017 06/19/2018 Therapeutic opioid induced constipation 09/25/2016 06/19/2018 Bleeding hemorrhoids 09/25/2016 018 Hypoglycemia after GI (gastr ointestinal) surgery 04/30/2014 09/29/2015 Incisional hernia 04/06/2014 10/22/2020 Abdominal pain, unspecified site 04/14/2013 09/29/2015 Pubic bone pain 04/14/2013 09/29/2015 Diabetes Mellitus 04/20/2010 10/14/2014 Diabetes mellitus 04/20/2010 11/22/2016 Iron deficiency anemia 01/10/201006/19 Plantar fascial fibromatosis 10/13/2008 09/29/2015 Disorders of bursae and tend ons in shoulder region, unspecified 12/02/2006 09/29/2015 documented as of this encounter (statuses as of 04/13/2023) [facility]03-12[facility]2019 History of Past illness Narrative* Problem Noted Date Diagnosed Date Resolved Date Asthmatic bronchitis 11/11/2018 021 Bursitis of right shoulder 09/29/2018 0 10/22/2020 Lateral femoral cutaneous neuropathy, right 11/15/2017 10/22/2020 Constipation, unspecified 08/14/2017 Low back pain 08/14/2017 06/19/2018 Migraine without status migr ainosus, not intractable 08/14/2017 10/22/2020 Right-sided chest wall pain 01/14/2017 06/19/2018 Therapeutic opioid induced constipation 09/25/2016 06/19/2018 Bleeding hemorrhoids 09/25/2016 018 Hypoglycemia after GI (gastr ointestinal) surgery 04/30/2014 09/29/2015 Incisional hernia 04/06/2014 10/22/2020 Abdominal pain, unspecified site 04/14/2013 09/29/2015 Pubic bone pain 04/14/2013 09/29/2015 Diabetes Mellitus 04/20/2010 10/14/2014 Diabetes mellitus 04/20/2010 11/22/2016 Iron deficiency anemia 01/10/201006/19 Plantar fascial fibromatosis 10/13/2008 09/29/2015 Disorders of bursae and tend ons in shoulder region, unspecified 12/02/2006 09/29/2015 documented as of this encounter (statuses as of 04/15/2023) [facility]03-12[facility]2019 History of Past illness Narrative* Problem Noted Date Diagnosed Date Resolved Date Asthmatic bronchitis 11/11/2018 021 Bursitis of right shoulder 09/29/2018 0 10/22/2020 Lateral femoral cutaneous neuropathy, right 11/15/2017 10/22/2020 Constipation, unspecified 08/14/2017 Low back pain 08/14/2017 06/19/2018 Migraine without status migr ainosus, not intractable 08/14/2017 10/22/2020 Right-sided chest wall pain 01/14/2017 06/19/2018 Therapeutic opioid induced constipation 09/25/2016 06/19/2018 Bleeding hemorrhoids 09/25/2016 018 Hypoglycemia after GI (gastr ointestinal) surgery 04/30/2014 09/29/2015 Incisional hernia 04/06/2014 10/22/2020 Abdominal pain, unspecified site 04/14/2013 09/29/2015 Pubic bone pain 04/14/2013 09/29/2015 Diabetes Mellitus 04/20/2010 10/14/2014 Diabetes mellitus 04/20/2010 11/22/2016 Iron deficiency anemia 01/10/201006/19 Plantar fascial fibromatosis 10/13/2008 09/29/2015 Disorders of bursae and tend ons in shoulder region, unspecified 12/02/2006 09/29/2015 documented as of this encounter (statuses as of 06/08/2023) [facility]03-12[facility]2019 History of Past illness Narrative* Problem Noted Date Diagnosed Date Resolved Date Asthmatic bronchitis 11/11/2018 021 Bursitis of right shoulder 09/29/2018 0 10/22/2020 Lateral femoral cutaneous neuropathy, right 11/15/2017 10/22/2020 Constipation, unspecified 08/14/2017 Low back pain 08/14/2017 06/19/2018 Migraine without status migr ainosus, not intractable 08/14/2017 10/22/2020 Right-sided chest wall pain 01/14/2017 06/19/2018 Therapeutic opioid induced constipation 09/25/2016 06/19/2018 Bleeding hemorrhoids 09/25/2016 018 Hypoglycemia after GI (gastr ointestinal) surgery 04/30/2014 09/29/2015 Incisional hernia 04/06/2014 10/22/2020 Abdominal pain, unspecified site 04/14/2013 09/29/2015 Pubic bone pain 04/14/2013 09/29/2015 Diabetes Mellitus 04/20/2010 10/14/2014 Diabetes mellitus 04/20/2010 11/22/2016 Iron deficiency anemia 01/10/201006/19 Plantar fascial fibromatosis 10/13/2008 09/29/2015 Disorders of bursae and tend ons in shoulder region, unspecified 12/02/2006 09/29/2015 documented as of this encounter (statuses as of 06/13/2023) [facility]03-12[facility]2019 History of Past illness Narrative* Problem Noted Date Diagnosed Date Resolved Date Asthmatic bronchitis 11/11/2018 021 Bursitis of right shoulder 09/29/2018 0 10/22/2020 Lateral femoral cutaneous neuropathy, right 11/15/2017 10/22/2020 Constipation, unspecified 08/14/2017 Low back pain 08/14/2017 06/19/2018 Migraine without status migr ainosus, not intractable 08/14/2017 10/22/2020 Right-sided chest wall pain 01/14/2017 06/19/2018 Therapeutic opioid induced constipation 09/25/2016 06/19/2018 Bleeding hemorrhoids 09/25/2016 018 Hypoglycemia after GI (gastr ointestinal) surgery 04/30/2014 09/29/2015 Incisional hernia 04/06/2014 10/22/2020 Abdominal pain, unspecified site 04/14/2013 09/29/2015 Pubic bone pain 04/14/2013 09/29/2015 Diabetes Mellitus 04/20/2010 10/14/2014 Diabetes mellitus 04/20/2010 11/22/2016 Iron deficiency anemia 01/10/201006/19 Plantar fascial fibromatosis 10/13/2008 09/29/2015 Disorders of bursae and tend ons in shoulder region, unspecified 12/02/2006 09/29/2015 documented as of this encounter (statuses as of 06/14/2023) [facility]2019 History of Past illness Narrative* Problem Noted Date Diagnosed Date Resolved Date Asthmatic bronchitis 11/11/2018 021 Bursitis of right shoulder 09/29/2018 0 10/22/2020 Lateral femoral cutaneous neuropathy, right 11/15/2017 10/22/2020 Constipation, unspecified 08/14/2017 Low back pain 08/14/2017 06/19/2018 Migraine without status migr ainosus, not intractable 08/14/2017 10/22/2020 Right-sided chest wall pain 01/14/2017 06/19/2018 Therapeutic opioid induced constipation 09/25/2016 06/19/2018 Bleeding hemorrhoids 09/25/2016 018 Hypoglycemia after GI (gastr ointestinal) surgery 04/30/2014 09/29/2015 Incisional hernia 04/06/2014 10/22/2020 Abdominal pain, unspecified site 04/14/2013 09/29/2015 Pubic bone pain 04/14/2013 09/29/2015 Diabetes Mellitus 04/20/2010 10/14/2014 Diabetes mellitus 04/20/2010 11/22/2016 Iron deficiency anemia 01/10/201006/19 Plantar fascial fibromatosis 10/13/2008 09/29/2015 Disorders of bursae and tend ons in shoulder region, unspecified 12/02/2006 09/29/2015 documented as of this encounter (statuses as of 07/09/2023) [facility]2019 History of Past illness Narrative* Problem Noted Date Diagnosed Date Resolved Date Asthmatic bronchitis 11/11/2018 021 Bursitis of right shoulder 09/29/2018 0 10/22/2020 Lateral femoral cutaneous neuropathy, right 11/15/2017 10/22/2020 Constipation, unspecified 08/14/2017 Low back pain 08/14/2017 06/19/2018 Migraine without status migr ainosus, not intractable 08/14/2017 10/22/2020 Right-sided chest wall pain 01/14/2017 06/19/2018 Therapeutic opioid induced constipation 09/25/2016 06/19/2018 Bleeding hemorrhoids 09/25/2016 018 Hypoglycemia after GI (gastr ointestinal) surgery 04/30/2014 09/29/2015 Incisional hernia 04/06/2014 10/22/2020 Abdominal pain, unspecified site 04/14/2013 09/29/2015 Pubic bone pain 04/14/2013 09/29/2015 Diabetes Mellitus 04/20/2010 10/14/2014 Diabetes mellitus 04/20/2010 11/22/2016 Iron deficiency anemia 01/10/201006/19 Plantar fascial fibromatosis 10/13/2008 09/29/2015 Disorders of bursae and tend ons in shoulder region, unspecified 12/02/2006 09/29/2015 documented as of this encounter (statuses as of 07/09/2023) [facility]12[facility]2019 History of Past illness Narrative* Problem Noted Date Diagnosed Date Resolved Date Asthmatic bronchitis 11/11/2018 021 Bursitis of right shoulder 09/29/2018 0 10/22/2020 Lateral femoral cutaneous neuropathy, right 11/15/2017 10/22/2020 Constipation, unspecified 08/14/2017 Low back pain 08/14/2017 06/19/2018 Migraine without status migr ainosus, not intractable 08/14/2017 10/22/2020 Right-sided chest wall pain 01/14/2017 06/19/2018 Therapeutic opioid induced constipation 09/25/2016 06/19/2018 Bleeding hemorrhoids 09/25/2016 018 Hypoglycemia after GI (gastr ointestinal) surgery 04/30/2014 09/29/2015 Incisional hernia 04/06/2014 10/22/2020 Abdominal pain, unspecified site 04/14/2013 09/29/2015 Pubic bone pain 04/14/2013 09/29/2015 Diabetes Mellitus 04/20/2010 10/14/2014 Diabetes mellitus 04/20/2010 11/22/2016 Iron deficiency anemia 01/10/201006/19 Plantar fascial fibromatosis 10/13/2008 09/29/2015 Disorders of bursae and tend ons in shoulder region, unspecified 12/02/2006 09/29/2015 documented as of this encounter (statuses as of 07/24/2023) [facility]2019 History of Past illness Narrative* Problem Noted Date Diagnosed Date Resolved Date Asthmatic bronchitis 11/11/2018 021 Bursitis of right shoulder 09/29/2018 0 10/22/2020 Lateral femoral cutaneous neuropathy, right 11/15/2017 10/22/2020 Constipation, unspecified 08/14/2017 Low back pain 08/14/2017 06/19/2018 Migraine without status migr ainosus, not intractable 08/14/2017 10/22/2020 Right-sided chest wall pain 01/14/2017 06/19/2018 Therapeutic opioid induced constipation 09/25/2016 06/19/2018 Bleeding hemorrhoids 09/25/2016 018 Hypoglycemia after GI (gastr ointestinal) surgery 04/30/2014 09/29/2015 Incisional hernia 04/06/2014 10/22/2020 Abdominal pain, unspecified site 04/14/2013 09/29/2015 Pubic bone pain 04/14/2013 09/29/2015 Diabetes Mellitus 04/20/2010 10/14/2014 Diabetes mellitus 04/20/2010 11/22/2016 Iron deficiency anemia 01/10/201006/19 Plantar fascial fibromatosis 10/13/2008 09/29/2015 Disorders of bursae and tend ons in shoulder region, unspecified 12/02/2006 09/29/2015 documented as of this encounter (statuses as of 07/27/2023) [facility]2019 History of Past illness Narrative* Problem Noted Date Diagnosed Date Resolved Date Asthmatic bronchitis 11/11/2018 021 Bursitis of right shoulder 09/29/2018 0 10/22/2020 Lateral femoral cutaneous neuropathy, right 11/15/2017 10/22/2020 Constipation, unspecified 08/14/2017 Low back pain 08/14/2017 06/19/2018 Migraine without status migr ainosus, not intractable 08/14/2017 10/22/2020 Right-sided chest wall pain 01/14/2017 06/19/2018 Therapeutic opioid induced constipation 09/25/2016 06/19/2018 Bleeding hemorrhoids 09/25/2016 018 Hypoglycemia after GI (gastr ointestinal) surgery 04/30/2014 09/29/2015 Incisional hernia 04/06/2014 10/22/2020 Abdominal pain, unspecified site 04/14/2013 09/29/2015 Pubic bone pain 04/14/2013 09/29/2015 Diabetes Mellitus 04/20/2010 10/14/2014 Diabetes mellitus 04/20/2010 11/22/2016 Iron deficiency anemia 01/10/201006/19 Plantar fascial fibromatosis 10/13/2008 09/29/2015 Disorders of bursae and tend ons in shoulder region, unspecified 12/02/2006 09/29/2015 documented as of this encounter (statuses as of 08/05/2023) [facility]2019 History of Past illness Narrative* Problem Noted Date Diagnosed Date Resolved Date Asthmatic bronchitis 11/11/2018 021 Bursitis of right shoulder 09/29/2018 0 10/22/2020 Lateral femoral cutaneous neuropathy, right 11/15/2017 10/22/2020 Constipation, unspecified 08/14/2017 Low back pain 08/14/2017 06/19/2018 Migraine without status migr ainosus, not intractable 08/14/2017 10/22/2020 Right-sided chest wall pain 01/14/2017 06/19/2018 Therapeutic opioid induced constipation 09/25/2016 06/19/2018 Bleeding hemorrhoids 09/25/2016 018 Hypoglycemia after GI (gastr ointestinal) surgery 04/30/2014 09/29/2015 Incisional hernia 04/06/2014 10/22/2020 Abdominal pain, unspecified site 04/14/2013 09/29/2015 Pubic bone pain 04/14/2013 09/29/2015 Diabetes Mellitus 04/20/2010 10/14/2014 Diabetes mellitus 04/20/2010 11/22/2016 Iron deficiency anemia 01/10/201006/19 Plantar fascial fibromatosis 10/13/2008 09/29/2015 Disorders of bursae and tend ons in shoulder region, unspecified 12/02/2006 09/29/2015 documented as of this encounter (statuses as of 11/24/2023) [facility] Diagnosis Rheumatoid arthritis involving multiple sites, unspecified whether rheumatoid factor present (HCC)- Primary Osteoporosis, unspecified osteoporosis type, unspecified pathological fracture presence 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 Lumbar spondylosis Lumbosacral spondylosis without myelopathy Primary osteoarthritis of right knee Primary localized osteoarthrosis, lower leg Fibromyalgia Mylagia and myositis, unspecified Rheumatoid arthritis involving both hands with positive rheumatoid factor (HCC) [facility] Diagnosis Osteoporosis, unspecified osteoporosis type, unspecified pathological fracture presence [facility] Diagnosis 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 Rheumatoid arthritis involving multiple sites, unspecified whether rheumatoid factor present (HCC) Rheumatoid arthritis involving both hands with positive rheumatoid factor (HCC) [facility] Diagnosis Fibromyalgia Mylagia and myositis, unspecified Muscle spasm Spasm of muscle [facility]* Diagnosis Acute pain of right knee- Primary [facility]* Diagnosis Injury of right knee, initial encounter- Primary Chronic insomnia Insomnia, unspecified Sprain of lateral collateral ligament of right knee, initial encounter Knee effusion, right Effusion of lower leg joint Pre-ulcerative calluses Corns and callosities Rheumatoid arthritis involving multiple sites with positive rheumatoid factor (HCC) Vomiting and diarrhea Vomiting alone [facility] Chronic insomnia- Primary Insomnia, unspecified [facility] Diagnosis Decreased urination- Primary Oliguria and anuria [facility]* Diagnosis At increased risk of exposure to COVID-19 virus- Primary Acute upper respiratory infection, unspecified [facility] Diagnosis Fibromyalgia Mylagia and myositis, unspecified Muscle spasm Spasm of muscle [facility]* Diagnosis Encounter for screening mammogram for breast cancer documented in this encounter [facility] note* Diagnosis Chronic insomnia- Primary Insomnia, unspecified documented in this encounter [facility] note* Diagnosis Fibromyalgia Mylagia and myositis, unspecified Muscle spasm Spasm of muscle documented in this encounter [facility] note* Diagnosis Fibromyalgia Mylagia and myositis, unspecified Muscle spasm Spasm of muscle [facility]* Diagnosis Onset Date Resolution Status Hypocalcemia acute Intractable pain acute Rheumatoid arthritis flare a cute Chronic depression chronic Chronic migraine chronic Fibromyalgia chronic Hypothyroidism chronic Iron deficiency anemia chron ic Vitamin B12 deficiency chron [facility] Work Phone: Evaluation note* Diagnosis Onset Date Resolution Status Intractable pain acute Rheumatoid arthritis flare a cute Chronic depression chronic Chronic migraine chronic Fibromyalgia chronic Hypothyroidism chronic Iron deficiency anemia chron ic Vitamin B12 deficiency chron ic Debility acute Insomnia acute Rheumatoid arthritis flare a cute Chronic depression chronic Chronic migraine chronic Fibromyalgia chronic Hypothyroidism [facility] Work Phone: Evaluation note* Diagnosis Encounter for support and coordination of transition of care- Primary Spinal stenosis, lumbar region with neurogenic claudication Recurrent major depression in partial remission (HCC) Major depressive disorder, recurrent episode, in partial or unspecified remission Fibromyalgia Mylagia and myositis, unspecified Muscle spasm Spasm of muscle Depression, unspecified depression type intermediate prescription opiate use Rheumatoid arthritis involving multiple sites, unspecified whether rheumatoid factor present (HCC) Rheumatoid arthritis involving both hands with positive rheumatoid factor (HCC) Iron deficiency anemia, unspecified iron deficiency anemia type Hypokalemia Hypopotassemia Hypothyroidism, unspecified type Chronic insomnia Insomnia, unspecified [facility]* Diagnosis Rheumatoid arthritis involving multiple sites with positive rheumatoid factor (HCC)- Primary documented [facility] this [facility]* Diagnosis Spinal stenosis, lumbar region with neurogenic claudication Rheumatoid arthritis involving multiple sites, unspecified whether rheumatoid factor present (HCC) documented in this encounter [facility] note* Diagnosis Rheumatoid arthritis involving multiple sites with positive rheumatoid factor (HCC)- Primary documented in this encounter [facility] note* Diagnosis Rheumatoid arthritis involving multiple sites with positive rheumatoid factor (HCC)- Primary [facility]* Diagnosis Fibromyalgia Mylagia and myositis, unspecified Muscle spasm Spasm of muscle [facility]* Diagnosis Rheumatoid arthritis involving multiple sites with positive rheumatoid factor (HCC) [facility]* Diagnosis Rheumatoid arthritis involving multiple sites with positive rheumatoid factor (HCC) [facility]* Diagnosis Fibromyalgia Mylagia and myositis, unspecified Muscle spasm Spasm of muscle [facility]* Diagnosis Fibromyalgia Mylagia and myositis, unspecified Muscle spasm Spasm of muscle [facility]* Diagnosis Fibromyalgia Mylagia and myositis, unspecified Muscle spasm Spasm of muscle [facility]* Diagnosis Acute pain of both knees- Primary Hypokalemia Hypopotassemia Hypothyroidism, unspecified type Hyperlipidemia with target LDL less than 100 Other and unspecified hyperlipidemia Vitamin B 12 deficiency Other B-complex deficiencies Iron deficiency anemia, unspecified iron deficiency anemia type History of gastric bypass Bariatric surgery status Disorder of bone, unspecified [facility]* Diagnosis Encounter for screening mammogram for breast cancer [facility]* Diagnosis B12 deficiency- Primary Other B-complex deficiencies Vitamin D deficiency Unspecified vitamin D deficiency Zinc deficiency Mineral deficiency, not elsewhere classified Hypothyroidism, unspecified type [facility]* Diagnosis Hypothyroidism, unspecified type [facility]* Diagnosis Confusion Unspecified psychosis Forgetfulness Other general symptoms Headache, unspecified headache type [facility]* Diagnosis Abnormal MRI- Primary Other nonspecific (abnormal) findings on radiological and other examinations of body structure [facility]* Diagnosis Nausea- Primary Nausea alone URI, acute Acute upper respiratory infections of unspecified site [facility]* Diagnosis Acute pain of right knee [facility] noteNo assessment information availableWMercy [facility] Work Phone: Hospital Discharge instructions Additional Instructions Discharge home with sister 07/04/2022, [facility] PT/OT/SN, Wheelchair.[facility] Work Phone: [facility] for referral (narrative)* Diagnostic Procedure Only (Urgent) - Pending Review Specialty Diagnoses / Procedures Referred By Contac t Referred To Contact XR IMAGING Diagnoses Acute pain of right knee Procedures XR KNEE GENERAL 4V AP BOTH/PA BOTH/LAT/MERC RIGHT RADIOLOGIC EXAM KNEE COMPLETE 4/MORE VIEWS Erna Kelley APRN.CNP [address] [place] [address] Xr Imaging Referral ID Status Reason Start Date Expiration Date Visits Requested Visits Authorized [id number] Pending Review Auto-Generat ed Referral 12/25/2021 01/22/2023 1 1 [facility] for referral (narrative)* Diagnostic Procedure Only (Routine) - Pending Review Specialty Diagnoses / Procedures Referred By Contac t Referred To Contact BR IMAGING Diagnoses Encounter for screening mammogram for breast cancer Procedures WILVER SCREENING SCREENING MAMMOGRAPHY BI 2-VIEW BREAST INC Jocelyn Lincoln PA-C [address] [id number] [facility] [address] [place] [address] Referral ID Status Reason Start Date Expiration Date Visits Requested Visits Authorized [id number] Pending Review Auto-Generat ed Referral 05/02/2022 06/01/2023 1 1 [facility] for referral (narrative)* Diagnostic Procedure Only (Routine) - Pending Review Specialty Diagnoses / Procedures Referred By Contac t Referred To Contact BR IMAGING Diagnoses Encounter for screening mammogram for breast cancer Procedures WILVER SCREENING SCREENING MAMMOGRAPHY BI 2-VIEW BREAST INC Jocelyn Lincoln PA-C [address] [place] [address] [facility] [address] [place] [address] Referral ID Status Reason Start Date Expiration Date Visits Requested Visits Authorized [id number] Pending Review Auto-Generat ed Referral 04/10/2023 05/09/2024 1 1 [facility] for referral (narrative)* Diagnostic Procedure Only (Urgent) - Closed Specialty Diagnoses / Procedures Referred By Contac t Referred To Contact XR IMAGING Diagnoses Acute pain of right knee Procedures XR KNEE GENERAL 4V AP BOTH/PA BOTH/LAT/MERC RIGHT RADIOLOGIC EXAM KNEE COMPLETE 4/MORE VIEWS Erna Kelley, INFORMATICS MANAGER.SUPERVISOR INSTRUMENT MAINTENANCE [address] [place] [address] [place] [address] Referral ID Status Reason Start Date Expiration Date V isits Requested Visits Authorized [id number] Closed Auto-Generate d Referral 12/25/2021 01/22/2023 1 1 [facility] for referral (narrative)No reason for referral information availableWMercy Health St[facility] Work Phone: [facility] for visit Narrative* Diagnostic Procedure Only (Routine) - Closed Specialty Diagnoses / Procedures Referred By Contac t Referred To Contact XR IMAGING Diagnoses Acute pain of both knees Procedures XR KNEE GENERAL 4V AP BOTH/PA BOTH/LAT/MERC BILATERAL RADIOLOGIC EXAM KNEE COMPLETE 4/MORE VIEWS Marsha Macias, INFORMATICS MANAGER.SUPERVISOR INSTRUMENT MAINTENANCE [address] [place] [address] [place] [address] Referral ID Status Reason Start Date Expiration Date V isits Requested Visits Authorized [id number] Closed Auto-Generate d Referral 02/06/2023 03/07/2024 1 1 [facility] for visit Narrative* Diagnostic Procedure Only (Urgent) - Closed Specialty Diagnoses / Procedures Referred By Contac t Referred To Contact XR IMAGING Diagnoses Acute pain of right knee Procedures XR KNEE GENERAL 4V AP BOTH/PA BOTH/LAT/MERC RIGHT RADIOLOGIC EXAM KNEE COMPLETE 4/MORE VIEWS Erna Kelley, INFORMATICS MANAGER.SUPERVISOR INSTRUMENT MAINTENANCE [address] [place] [address] [place] [address] Referral ID Status Reason Start Date Expiration Date V isits Requested Visits Authorized [id number] Closed Auto-Generate d Referral 12/25/2021 01/22/2023 1 1 [facility] Reason for Referral Specialty Diagnoses / Procedures Referred By Contac t Referred To Contact Diagnoses Vomiting and diarrhea Jocelyn Wolff PA-C [address] [place] [address] Referral ID Status Reason Start Date Expiration Date Visits Re quested Visits Authorized [id number] Closed 1 1 Specialty Diagnoses / Procedures Referred By Contac t Referred To Contact Podiatry Diagnoses Pre-ulcerative calluses Procedures CONSULT TO PODIATRY OFFICE/OUTPATIENT [facility] 60-74 MINUTES Jocelyn Wolff PA-C [address] [place] [address] Referral ID Status Reason Start Date Expiration Date Visits Requested Visits Authorized [id number] Authorized PCP Requested Referral 12/26/2021 12/26/2022 1 1 Specialty Diagnoses / Procedures Referred By Contac t Referred To Contact Diagnoses Chronic insomnia Procedures CONSULT TO SLEEP MEDICINE - ADULT OFFICE/OUTPATIENT [facility] 60-74 MINUTES Jocelyn Wolff PA-C [address] [place] [address] Referral ID Status Reason Start Date Expiration Date Visits Requested Visits Authorized [id number] Authorized PCP Requested Referral 05/15/2022 05/15/2023 1 1 Specialty Diagnoses / Procedures Referred By Contac t Referred To Contact Pain Management Diagnoses Spinal stenosis, lumbar region with neurogenic claudication Rheumatoid arthritis involving multiple sites, unspecified whether rheumatoid factor present (HCC) Rheumatoid arthritis involving both hands with positive rheumatoid factor (HCC) Procedures CONSULT TO PAIN MGT OFFICE/OUTPATIENT [facility] 60-74 MINUTES Jocelyn Wolff PA-C [address] [place] [address] Referral ID Status Reason Start Date Expiration Date Visits Requested Visits Authorized [id number] Authorized PCP Requested Referral 07/03/2022 07/03/2023 1 1 Specialty Diagnoses / Procedures Referred By Contac t Referred To Contact Pain Management Diagnoses Spinal stenosis, lumbar region with neurogenic claudication Fibromyalgia Muscle spasm Rheumatoid arthritis involving multiple sites, unspecified whether rheumatoid factor present (HCC) Rheumatoid arthritis involving both hands with positive rheumatoid factor (HCC) Procedures CONSULT TO PAIN MGT OFFICE/OUTPATIENT [facility] 60-74 MINUTES Jocelyn Wolff PA-C [address] [place] [address] Referral ID Status Reason Start Date Expiration Date Visits Requested Visits Authorized [id number] Authorized PCP Requested Referral 07/03/2022 07/03/2023 1 1 Specialty Diagnoses / Procedures Referred By Contac t Referred To Contact Orthopedics Diagnoses Acute pain of both knees Procedures CONSULT TO ORTHOPAEDICS OFFICE/OUTPATIENT [facility] 60-74 MINUTES Marsha Macias APRN.SUPERVISOR INSTRUMENT MAINTENANCE [address] [id number] Referral ID Status Reason Start Date Expiration Date Visits Requested Visits Authorized [id number] Authorized PCP Requested Referral 02/06/2023 02/06/2024 1 1 Specialty Diagnoses / Procedures Referred By Contac t Referred To Contact XR IMAGING Diagnoses Acute pain of both knees Procedures XR KNEE GENERAL 4V AP BOTH/PA BOTH/LAT/MERC BILATERAL RADIOLOGIC EXAM KNEE COMPLETE 4/MORE VIEWS Marsha Macias APRN.SUPERVISOR INSTRUMENT MAINTENANCE [address] [place] [address] Xr Imaging Referral ID Status Reason Start Date Expiration Date Visits Requested Visits Authorized [id number] Authorized Auto-Generat ed Referral 02/06/2023 03/07/2024 1 1 Specialty Diagnoses / Procedures Referred By Contac t Referred To Contact MR IMAGING Diagnoses Confusion Forgetfulness Headache, unspecified headache type Procedures MRI BRAIN WO IVCON MRI BRAIN BRAIN STEM W/O CONTRAST MATERIAL Marsha Macias APRN.SUPERVISOR INSTRUMENT MAINTENANCE [address] [place] [address] [place] [address] Referral ID Status Reason Start Date Expiration Date V isits Requested Visits Authorized [id number] Closed Auto-Generate d Referral 06/04/2023 07/03/2024 1 1 Specialty Diagnoses / Procedures Referred By Contac t Referred To Contact Dentistry Diagnoses Abnormal MRI Procedures CONSULT TO DENTISTRY OFFICE/OUTPATIENT [facility] 60-74 MINUTES Marsha Macias APRN.SUPERVISOR INSTRUMENT MAINTENANCE [address] [place] [address] Referral ID Status Reason Start Date Expiration Date Visits Requested Visits Authorized [id number] Pending Review PCP Requested Referral 07/05/2023 07/04/2024 1 1 Specialty Diagnoses / Procedures Referred By Contac t Referred To Contact Marsha Macias APRN.SUPERVISOR INSTRUMENT MAINTENANCE [address] [place] [address] Referral ID Status Reason Start Date Expiration Date V isits Requested Visits Authorized [id number] Pending Review 1 1 Health Concerns Infection Onset Date Last Indicated Resolved Time COVID-19 Rule-Out 03/04/2022 03/04/2022 Infection Onset Date Last Indicated Resolved Time COVID-19 Rule-Out 11/24/2023 11/24/2023 Summary Purpose Family History No Family History Records Found Relationship Condition Age at Onset Recorded Date/T jeremy mother Chronic obstructive pulmonary disease Unk nown Hypertension Unknown father Varicose veins of both lower extremities Unknown Advance Directives No Advanced Directives Records Found Advance Directive Response Recorded Date/ Time Advance Directives No September 15, 2016 5:22pm Living Will No June 14 4:46am Power of Water Treatment Plant Mechanic No June 14, 2022 4:46am Advance Directive Response Recorded Date/ Time Advance Directives No September 15, 2016 5:22pm Living Will No June 15 3:19pm Power of Water Treatment Plant Mechanic No June 15, 2022 3:19pm Advance Directive Response Recorded Date/ Time Advance Directives No September 15, 2016 4:22pm Living Will No August 04 9:48am Power of Water Treatment Plant Mechanic No August 04, 2022 9:48am Advance Directive Response Recorded Date/ Time Advance Directives No September 15, 2016 5:22pm Chief Complaint and Reason for Visit Chief Complaint RA FLARE RA FLARE Reason for Visit Hypocalcemia Intractable pain Rheumatoid arthritis flare Chronic depression Chronic migraine Fibromyalgia Hypothyroidism Iron deficiency anemia Vitamin B12 deficiency Chief Complaint RA FLARE RA FLARE R A FLARE Reason for Visit Intractable pain Rheumatoid arthritis flare Chronic depression Chronic migraine Fibromyalgia Hypothyroidism Iron deficiency anemia Vitamin B12 deficiency Debility Insomnia Rheumatoid arthritis flare Chronic depression Chronic migraine Fibromyalgia Hypothyroidism Chief Complaint RA FLARE RA FLARE R A FLARE b/l leg pain Reason for Visit Intractable pain Rheumatoid arthritis flare Chronic depression Chronic migraine Fibromyalgia Hypothyroidism Iron deficiency anemia Vitamin B12 deficiency Debility Insomnia Rheumatoid arthritis flare Chronic depression Chronic migraine Fibromyalgia Hypothyroidism Chief Complaint Admit Date XRAY BACK AND BOTH KNEES February 11, 2025 2:40pm Medications Administered Section Inactive Administered Medications - up to 3 most recent administrations Medication Order MAR Action Action Date Dose Rate Site keTORolac 60 mg injection (Toradol) 60 mg, INTRAMUSCULAR, ONCE, 1 dose, On Sat02/06/23 at 1700, Ketorolac (Toradol) is indicated for the short-term (up to 5 days) management of moderately severe acute pain. Continuation of ketorolac (Toradol) beyond 5 days increases the risk of developing serious adverse events. Please verify the duration of therapy for ketorolac (Toradol)., If ordered PRN for pain, patient/guardian may elect to receive this medication for higher pain levels INSTEAD of the opioid, if preferred: Yes Given 02/06/2023 4:43 PM EDT 60 mg Buttocks, Left Additional Source Comments Source Comments (unrecognize d section and content) In the event this informatio n is protected by the Federal Confidentiality of Alcohol and Drug Abuse Patient Records regulations: The Federal rules restrict any use of the information to criminally investigate or prosecute any alcohol or drug abuse patient.[facility] event this information is protected by the Federal Confidentiality of Alcohol and Drug Abuse Patient Records regulations: The Federal rules restrict any use of the information to criminally investigate or prosecute any alcohol or drug abuse patient.[facility] the event this information is protected by the Federal Confidentiality of Alcohol and Drug Abuse Patient Records regulations: The Federal rules restrict any use of the information to criminally investigate or prosecute any alcohol or drug abuse patient.[facility] the event this information is protected by the Federal Confidentiality of Alcohol and Drug Abuse Patient Records regulations: The Federal rules restrict any use of the information to criminally investigate or prosecute any alcohol or drug abuse patient.[facility] the event this information is protected by the Federal Confidentiality of Alcohol and Drug Abuse Patient Records regulations: The Federal rules restrict any use of the information to criminally investigate or prosecute any alcohol or drug abuse patient.[facility] the event this information is protected by the Federal Confidentiality of Alcohol and Drug Abuse Patient Records regulations: The Federal rules restrict any use of the information to criminally investigate or prosecute any alcohol or drug abuse patient.[facility] the event this information is protected by the Federal Confidentiality of Alcohol and Drug Abuse Patient Records regulations: The Federal rules restrict any use of the information to criminally investigate or prosecute any alcohol or drug abuse patient.[facility] the event this information is protected by the Federal Confidentiality of Alcohol and Drug Abuse Patient Records regulations: The Federal rules restrict any use of the information to criminally investigate or prosecute any alcohol or drug abuse patient.[facility] the event this information is protected by the Federal Confidentiality of Alcohol and Drug Abuse Patient Records regulations: The Federal rules restrict any use of the information to criminally investigate or prosecute any alcohol or drug abuse patient.[facility] the event this information is protected by the Federal Confidentiality of Alcohol and Drug Abuse Patient Records regulations: The Federal rules restrict any use of the information to criminally investigate or prosecute any alcohol or drug abuse patient.[facility] the event this information is protected by the Federal Confidentiality of Alcohol and Drug Abuse Patient Records regulations: The Federal rules restrict any use of the information to criminally investigate or prosecute any alcohol or drug abuse patient.[facility] the event this information is protected by the Federal Confidentiality of Alcohol and Drug Abuse Patient Records regulations: The Federal rules restrict any use of the information to criminally investigate or prosecute any alcohol or drug abuse patient.[facility] the event this information is protected by the Federal Confidentiality of Alcohol and Drug Abuse Patient Records regulations: The Federal rules restrict any use of the information to criminally investigate or prosecute any alcohol or drug abuse patient.[facility] the event this information is protected by the Federal Confidentiality of Alcohol and Drug Abuse Patient Records regulations: The Federal rules restrict any use of the information to criminally investigate or prosecute any alcohol or drug abuse patient.[facility] the event this information is protected by the Federal Confidentiality of Alcohol and Drug Abuse Patient Records regulations: The Federal rules restrict any use of the information to criminally investigate or prosecute any alcohol or drug abuse patient.[facility] the event this information is protected by the Federal Confidentiality of Alcohol and Drug Abuse Patient Records regulations: The Federal rules restrict any use of the information to criminally investigate or prosecute any alcohol or drug abuse patient.[facility] the event this information is protected by the Federal Confidentiality of Alcohol and Drug Abuse Patient Records regulations: The Federal rules restrict any use of the information to criminally investigate or prosecute any alcohol or drug abuse patient.[facility] the event this information is protected by the Federal Confidentiality of Alcohol and Drug Abuse Patient Records regulations: The Federal rules restrict any use of the information to criminally investigate or prosecute any alcohol or drug abuse patient.[facility] [facility] the event this information is protected by the Federal Confidentiality of Alcohol and Drug Abuse Patient Records regulations: The Federal rules restrict any use of the information to criminally investigate or prosecute any alcohol or drug abuse patient.[facility] the event this information is protected by the Federal Confidentiality of Alcohol and Drug Abuse Patient Records regulations: The Federal rules restrict any use of the information to criminally investigate or prosecute any alcohol or drug abuse patient.[facility]In the event this information is protected by the Federal Confidentiality of Alcohol and Drug Abuse Patient Records regulations: The Federal rules restrict any use of the information to criminally investigate or prosecute any alcohol or drug abuse patient.[facility]In the event this information is protected by the Federal Confidentiality of Alcohol and Drug Abuse Patient Records regulations: The Federal rules restrict any use of the information to criminally investigate or prosecute any alcohol or drug abuse patient.[facility]In the event this information is protected by the Federal Confidentiality of Alcohol and Drug Abuse Patient Records regulations: The Federal rules restrict any use of the information to criminally investigate or prosecute any alcohol or drug abuse patient.[facility]In the event this information is protected by the Federal Confidentiality of Alcohol and Drug Abuse Patient Records regulations: The Federal rules restrict any use of the information to criminally investigate or prosecute any alcohol or drug abuse patient.[facility]In the event this information is protected by the Federal Confidentiality of Alcohol and Drug Abuse Patient Records regulations: The Federal rules restrict any use of the information to criminally investigate or prosecute any alcohol or drug abuse patient.[facility]In the event this information is protected by the Federal Confidentiality of Alcohol and Drug Abuse Patient Records regulations: The Federal rules restrict any use of the information to criminally investigate or prosecute any alcohol or drug abuse patient.[facility]In the event this information is protected by the Federal Confidentiality of Alcohol and Drug Abuse Patient Records regulations: The Federal rules restrict any use of the information to criminally investigate or prosecute any alcohol or drug abuse patient.[facility]In the event this information is protected by the Federal Confidentiality of Alcohol and Drug Abuse Patient Records regulations: The Federal rules restrict any use of the information to criminally investigate or prosecute any alcohol or drug abuse patient.[facility]In the event this information is protected by the Federal Confidentiality of Alcohol and Drug Abuse Patient Records regulations: The Federal rules restrict any use of the information to criminally investigate or prosecute any alcohol or drug abuse patient.[facility]In the event this information is protected by the Federal Confidentiality of Alcohol and Drug Abuse Patient Records regulations: The Federal rules restrict any use of the information to criminally investigate or prosecute any alcohol or drug abuse patient.[facility]In the event this information is protected by the Federal Confidentiality of Alcohol and Drug Abuse Patient Records regulations: The Federal rules restrict any use of the information to criminally investigate or prosecute any alcohol or drug abuse patient.[facility]In the event this information is protected by the Federal Confidentiality of Alcohol and Drug Abuse Patient Records regulations: The Federal rules restrict any use of the information to criminally investigate or prosecute any alcohol or drug abuse patient.[facility]In the event this information is protected by the Federal Confidentiality of Alcohol and Drug Abuse Patient Records regulations: The Federal rules restrict any use of the information to criminally investigate or prosecute any alcohol or drug abuse patient.[facility]In the event this information is protected by the Federal Confidentiality of Alcohol and Drug Abuse Patient Records regulations: The Federal rules restrict any use of the information to criminally investigate or prosecute any alcohol or drug abuse patient.[facility]In the event this information is protected by the Federal Confidentiality of Alcohol and Drug Abuse Patient Records regulations: The Federal rules restrict any use of the information to criminally investigate or prosecute any alcohol or drug abuse patient.[facility]In the event this information is protected by the Federal Confidentiality of Alcohol and Drug Abuse Patient Records regulations: The Federal rules restrict any use of the information to criminally investigate or prosecute any alcohol or drug abuse patient.[facility]In the event this information is protected by the Federal Confidentiality of Alcohol and Drug Abuse Patient Records regulations: The Federal rules restrict any use of the information to criminally investigate or prosecute any alcohol or drug abuse patient.[facility]In the event this information is protected by the Federal Confidentiality of Alcohol and Drug Abuse Patient Records regulations: The Federal rules restrict any use of the information to criminally investigate or prosecute any alcohol or drug abuse patient.[facility]In the event this information is protected by the Federal Confidentiality of Alcohol and Drug Abuse Patient Records regulations: The Federal rules restrict any use of the information to criminally investigate or prosecute any alcohol or drug abuse patient.[facility]In the event this information is protected by the Federal Confidentiality of Alcohol and Drug Abuse Patient Records regulations: The Federal rules restrict any use of the information to criminally investigate or prosecute any alcohol or drug abuse patient.[facility]In the event this information is protected by the Federal Confidentiality of Alcohol and Drug Abuse Patient Records regulations: The Federal rules restrict any use of the information to criminally investigate or prosecute any alcohol or drug abuse patient.[facility]In the event this information is protected by the Federal Confidentiality of Alcohol and Drug Abuse Patient Records regulations: The Federal rules restrict any use of the information to criminally investigate or prosecute any alcohol or drug abuse patient.[facility]In the event this information is protected by the Federal Confidentiality of Alcohol and Drug Abuse Patient Records regulations: The Federal rules restrict any use of the information to criminally investigate or prosecute any alcohol or drug abuse patient.[facility]In the event this information is protected by the Federal Confidentiality of Alcohol and Drug Abuse Patient Records regulations: The Federal rules restrict any use of the information to criminally investigate or prosecute any alcohol or drug abuse patient.[facility]In the event this information is protected by the Federal Confidentiality of Alcohol and Drug Abuse Patient Records regulations: The Federal rules restrict any use of the information to criminally investigate or prosecute any alcohol or drug abuse patient.[facility]In the event this information is protected by the Federal Confidentiality of Alcohol and Drug Abuse Patient Records regulations: The Federal rules restrict any use of the information to criminally investigate or prosecute any alcohol or drug abuse patient.[facility]In the event this information is protected by the Federal Confidentiality of Alcohol and Drug Abuse Patient Records regulations: The Federal rules restrict any use of the information to criminally investigate or prosecute any alcohol or drug abuse patient.[facility]In the event this information is protected by the Federal Confidentiality of Alcohol and Drug Abuse Patient Records regulations: The Federal rules restrict any use of the information to criminally investigate or prosecute any alcohol or drug abuse patient.[facility]In the event this information is protected by the Federal Confidentiality of Alcohol and Drug Abuse Patient Records regulations: The Federal rules restrict any use of the information to criminally investigate or prosecute any alcohol or drug abuse patient.[facility]In the event this information is protected by the Federal Confidentiality of Alcohol and Drug Abuse Patient Records regulations: The Federal rules restrict any use of the information to criminally investigate or prosecute any alcohol or drug abuse patient.[facility]In the event this information is protected by the Federal Confidentiality of Alcohol and Drug Abuse Patient Records regulations: The Federal rules restrict any use of the information to criminally investigate or prosecute any alcohol or drug abuse patient.[facility]In the event this information is protected by the Federal Confidentiality of Alcohol and Drug Abuse Patient Records regulations: The Federal rules restrict any use of the information to criminally investigate or prosecute any alcohol or drug abuse patient.[facility]In the event this information is protected by the Federal Confidentiality of Alcohol and Drug Abuse Patient Records regulations: The Federal rules restrict any use of the information to criminally investigate or prosecute any alcohol or drug abuse patient.[facility]In the event this information is protected by the Federal Confidentiality of Alcohol and Drug Abuse Patient Records regulations: The Federal rules restrict any use of the information to criminally investigate or prosecute any alcohol or drug abuse patient.[facility]In the event this information is protected by the Federal Confidentiality of Alcohol and Drug Abuse Patient Records regulations: The Federal rules restrict any use of the information to criminally investigate or prosecute any alcohol or drug abuse patient.[facility]In the event this information is protected by the Federal Confidentiality of Alcohol and Drug Abuse Patient Records regulations: The Federal rules restrict any use of the information to criminally investigate or prosecute any alcohol or drug abuse patient.[facility]In the event this information is protected by the Federal Confidentiality of Alcohol and Drug Abuse Patient Records regulations: The Federal rules restrict any use of the information to criminally investigate or prosecute any alcohol or drug abuse patient.[facility]In the event this information is protected by the Federal Confidentiality of Alcohol and Drug Abuse Patient Records regulations: The Federal rules restrict any use of the information to criminally investigate or prosecute any alcohol or drug abuse patient.[facility]In the event this information is protected by the Federal Confidentiality of Alcohol and Drug Abuse Patient Records regulations: The Federal rules restrict any use of the information to criminally investigate or prosecute any alcohol or drug abuse patient.[facility]In the event this information is protected by the Federal Confidentiality of Alcohol and Drug Abuse Patient Records regulations: The Federal rules restrict any use of the information to criminally investigate or prosecute any alcohol or drug abuse patient.[facility]In the event this information is protected by the Federal Confidentiality of Alcohol and Drug Abuse Patient Records regulations: The Federal rules restrict any use of the information to criminally investigate or prosecute any alcohol or drug abuse patient.[facility]In the event this information is protected by the Federal Confidentiality of Alcohol and Drug Abuse Patient Records regulations: The Federal rules restrict any use of the information to criminally investigate or prosecute any alcohol or drug abuse patient.[facility]In the event this information is protected by the Federal Confidentiality of Alcohol and Drug Abuse Patient Records regulations: The Federal rules restrict any use of the information to criminally investigate or prosecute any alcohol or drug abuse patient.[facility]In the event this information is protected by the Federal Confidentiality of Alcohol and Drug Abuse Patient Records regulations: The Federal rules restrict any use of the information to criminally investigate or prosecute any alcohol or drug abuse patient.[facility]In the event this information is protected by the Federal Confidentiality of Alcohol and Drug Abuse Patient Records regulations: The Federal rules restrict any use of the information to criminally investigate or prosecute any alcohol or drug abuse patient.[facility]In the event this information is protected by the Federal Confidentiality of Alcohol and Drug Abuse Patient Records regulations: The Federal rules restrict any use of the information to criminally investigate or prosecute any alcohol or drug abuse patient.[facility]In the event this information is protected by the Federal Confidentiality of Alcohol and Drug Abuse Patient Records regulations: The Federal rules restrict any use of the information to criminally investigate or prosecute any alcohol or drug abuse patient.[facility]In the event this information is protected by the Federal Confidentiality of Alcohol and Drug Abuse Patient Records regulations: The Federal rules restrict any use of the information to criminally investigate or prosecute any alcohol or drug abuse patient.[facility]In the event this information is protected by the Federal Confidentiality of Alcohol and Drug Abuse Patient Records regulations: The Federal rules restrict any use of the information to criminally investigate or prosecute any alcohol or drug abuse patient.[facility]In the event this information is protected by the Federal Confidentiality of Alcohol and Drug Abuse Patient Records regulations: The Federal rules restrict any use of the information to criminally investigate or prosecute any alcohol or drug abuse patient.[facility] Reason for Visit (unrecogniz ed section and content) Reason Comments Follow Up Rx Refills Specialty Diagnoses / Procedures Referred By Contwilton t Referred To Contact Pain Management / PAIN MANAGEMENT Diagnoses EST - follow up and medication refill Procedures EST PATIENT Jocelyn Wolff PA-C [address] [place] [address] Faye Beltran MD [facility] [place] [address] Referral ID Status Reason Start Date Expiration Date Visits Requested Visits Authorized [id number] Pending Review Patient Cleared - INN Insurance Found 11/23/2021 02/21/2022 1 1 Reason Comments Patient Update Reason Comments Medication Problem Reason Comments Prescription Refills Reason Onset Date Comments [facility] Outreach 12/06/2021 [facility] [place] [facility] Reason Comments Knee Pain right, fell on it a month ago Reason Comments Fall 2 weeks ago, no LOC Knee Pain right, getting worse . Unable to stand on it. Reason Comments Sleep Problem Reason Comments Patient Question Reason Comments Patient Question Patient Update Reason Comments Difficulty Urinating decreased urination x1 day lower abd pain rated 4 Reason Comments Acute Visit covid symptoms x 3 d ays Reason Onset Date Comments Refill Request 03/06/2022 Reason Comments Results Reason Comments Results No More Meds Reason Comments Anxiety Reason Onset Date Comments [facility] Outreach 05/09/2022 HCC Reason Comments Patient Question Reason Onset Date Comments Refill Request 05/21/2022 Reason Onset Date Comments Refill Request 04/30/2022 Refill Request 05/21/2022 Refill Request 05/28/2022 Reason Comments home health calling Reason Comments Hospital Follow Up Reason Comments Medication Question Reason Onset Date Comments Refill Request 07/10/2022 Refill Request 07/12/2022 Reason Comments [facility], PT plan of care Reason Comments [facility] OT POC Reason Comments Patient Question Medication Request Reason Onset Date Comments Refill Request 08/30/2022 Reason Onset Date Comments Refill Request 09/04/2022 Reason Onset Date Comments [facility] 09/27/2022 [facility] [place] [facility] Reason Comments Consult Reason Onset Date Comments Refill Request 10/10/2022 Reason Onset Date Comments Refill Request 11/07/2022 Refill Request 11/08/2022 Reason Comments Opened In Error Reason Onset Date Comments Refill Request 11/10/2022 Reason Comments Medication issue Reason Comments Pain management reply. Reason Onset Date Comments [facility] 11/28/2022 [facility] [place] [facility] Reason Comments requesting medication Reason Comments Vomiting Reason Comments Knee Pain Bilateral knee pain; L worse than R; no injury Reason Onset Date Comments Refill Request 02/13/2023 Reason Comments Appointment Reason Comments Refill Request Reason Comments Medication Request Specialty Diagnoses / Procedures Referred By Contac t Referred To Contact MR IMAGING Diagnoses Confusion Forgetfulness Headache, unspecified headache type Procedures MRI BRAIN WO IVCON MRI BRAIN BRAIN STEM W/O CONTRAST MATERIAL Marsha Macias, INFORMATICS MANAGER.SUPERVISOR INSTRUMENT MAINTENANCE [address] [facility] [place] [address] [place] [id number] Referral ID Status Reason Start Date Expiration Date V isits Requested Visits Authorized [id number] Closed Auto-Generate d Referral 06/04/2023 07/03/2024 1 1 Reason Comments Results Reason Comments Medication Request Reason Onset Date Comments Refill Request 07/27/2023 Reason Onset Date Comments Population Health Navigation Outreach 08/05/2023 [facility] G[facility] Reason Comments Vomiting Diarrhea x2 days, po ssible food poisoning Care Teams (unrecognized sec tion and content) Event Marketing Representative Relationship Specialty Start Date End Date Jocelyn Wolff PA-C [address] [place] [address] PCP - General Family Practice 01/13/21 Event Marketing Representative Relationship Specialty Start Date End Date Jocelyn Wolff PA-C [address] [place] [address] PCP - General Family Practice 01/13/21 Event Marketing Representative Relationship Specialty Start Date End Date Jocelyn Wolff PA-C [address] [place] [address] PCP - General Family Practice 01/13/21 Event Marketing Representative Relationship Specialty Start Date End Date Jocelyn Wolff PA-C [address] [place] [address] PCP - General Family Practice 01/13/21 Event Marketing Representative Relationship Specialty Start Date End Date Jocelyn Wolff PA-C [address] [place] [address] PCP - General Family Practice 01/13/21 Event Marketing Representative Relationship Specialty Start Date End Date Jocelyn Wolff PA-C [address] [facility] [place] [address] PCP - General Family Practice 01/13/21 Event Marketing Representative Relationship Specialty Start Date End Date Jocelyn Wolff PA-C [address] [place] [address] PCP - General Family Practice 01/13/21 Event Marketing Representative Relationship Specialty Start Date End Date Jocelyn Wolff PA-C [address] [place] [address] PCP - General Family Practice 01/13/21 Event Marketing Representative Relationship Specialty Start Date End Date Jocelyn Wolff PA-C [address] [place] [address] PCP - General Family Practice 01/13/21 Event Marketing Representative Relationship Specialty Start Date End Date Jocelyn Wolff PA-C [address] [place] [address] PCP - General Family Practice 01/13/21 Event Marketing Representative Relationship Specialty Start Date End Date Jocelyn Wolff PA-C [address] [place] [address] PCP - General Family Practice 01/13/21 Event Marketing Representative Relationship Specialty Start Date End Date Jocelyn Wolff PA-C [address] [place] [address] PCP - General Family Practice 01/13/21 Event Marketing Representative Relationship Specialty Start Date End Date Jocelyn Wolff PA-C [address] [place] [address] PCP - General Family Practice 01/13/21 Event Marketing Representative Relationship Specialty Start Date End Date Jocelyn Wolff PA-C [address] [place] [address] PCP - General Family Practice 01/13/21 Event Marketing Representative Relationship Specialty Start Date End Date Jocelyn Wolff PA-C [address] [place] [address] PCP - General Family Practice 01/13/21 Event Marketing Representative Relationship Specialty Start Date End Date Jocelyn Wolff PA-C [address] [facility] [place] [address] PCP - General Family Practice 01/13/21 Event Marketing Representative Relationship Specialty Start Date End Date Jocelyn Wolff PA-C [address] [facility] [place] [address] PCP - General Family Medicine 01/13/21 Event Marketing Representative Relationship Specialty Start Date End Date Jocelyn Wolff PA-C [address] [place] [address] PCP - General Family Medicine 01/13/21 Event Marketing Representative Relationship Specialty Start Date End Date Jocelyn Wolff PA-C [address] [place] [address] PCP - General Family Medicine 01/13/21 Event Marketing Representative Relationship Specialty Start Date End Date Jocelyn Wolff PA-C [address] [place] [address] PCP - General Family Medicine 01/13/21 Event Marketing Representative Relationship Specialty Start Date End Date Jocelyn Wolff PA-C [address] [place] [address] PCP - General Family Medicine 01/13/21 Event Marketing Representative Relationship Specialty Start Date End Date Jocelyn Wolff PA-C [address] [place] [address] PCP - General Family Medicine 01/13/21 07/09/22 Event Marketing Representative Relationship Specialty Start Date End Date Jocelyn Wolff PA-C [address] [place] [address] PCP - General Family Medicine 01/13/21 07/09/22 Event Marketing Representative Relationship Specialty Start Date End Date Jocelyn Wolff PA-C [address] [place] [address] PCP - General Family Medicine 08/06/22 Event Marketing Representative Relationship Specialty Start Date End Date Jocelyn Wolff PA-C [address] [place] [address] PCP - General Family Medicine 08/06/22 Event Marketing Representative Relationship Specialty Start Date End Date Jocelyn Wolff PA-C [address] [place] [address] PCP - General Family Medicine 08/06/22 Event Marketing Representative Relationship Specialty Start Date End Date Jocelyn Wolff PA-C [address] [place] [address] PCP - General Family Medicine 08/06/22 Event Marketing Representative Relationship Specialty Start Date End Date Jocelyn Wolff PA-C [address] [place] [address] PCP - General Family Medicine 08/06/22 Event Marketing Representative Relationship Specialty Start Date End Date Jocelyn Wolff PA-C [address] [place] [address] PCP - General Family Medicine 08/06/22 Event Marketing Representative Relationship Specialty Start Date End Date Jocelyn Wolff PA-C [address] [place] [address] PCP - General Family Medicine 08/06/22 Event Marketing Representative Relationship Specialty Start Date End Date Jocelyn Wolff PA-C [address] [place] [address] PCP - General Family Medicine 08/06/22 Event Marketing Representative Relationship Specialty Start Date End Date Jocelyn Wolff PA-C [address] [place] [address] PCP - General Family Medicine 08/06/22 Event Marketing Representative Relationship Specialty Start Date End Date Jocelyn Wolff PA-C [address] [place] [address] PCP - General Family Medicine 08/06/22 Event Marketing Representative Relationship Specialty Start Date End Date Jocelyn Wolff PA-C [address] [place] [address] PCP - General Family Medicine 08/06/22 Event Marketing Representative Relationship Specialty Start Date End Date Jocelyn Wolff PA-C [address] [place] [address] PCP - General Family Medicine 08/06/22 Event Marketing Representative Relationship Specialty Start Date End Date Jocelyn Wolff PA-C [address] [place] [address] PCP - General Family Medicine 08/06/22 Event Marketing Representative Relationship Specialty Start Date End Date Jocelyn Wolff PA-C [address] [place] [address] PCP - General Family Medicine 08/06/22 Event Marketing Representative Relationship Specialty Start Date End Date Jocelyn Wolff PA-C [address] [place] [address] PCP - General Family Medicine 08/06/22 Event Marketing Representative Relationship Specialty Start Date End Date Jocelyn Wolff PA-C [address] [place] [address] PCP - General Family Medicine 08/06/22 Event Marketing Representative Relationship Specialty Start Date End Date Jocelyn Wolff PA-C [address] [place] [address] PCP - General Family Medicine 08/06/22 Event Marketing Representative Relationship Specialty Start Date End Date Jocelyn Wolff PA-C [address] [place] [address] PCP - General Family Medicine 08/06/22 Event Marketing Representative Relationship Specialty Start Date End Date Jocelyn Wolff PA-C [address] [place] [address] PCP - General Family Medicine 08/06/22 Event Marketing Representative Relationship Specialty Start Date End Date Jocelyn Wolff PA-C [address] [place] [address] PCP - General Family Medicine 08/06/22 Event Marketing Representative Relationship Specialty Start Date End Date Jocelyn Wolff PA-C [address] [place] [address] PCP - General Family Medicine 08/06/22 Event Marketing Representative Relationship Specialty Start Date End Date Jocelyn Wolff PA-C [address] [place] [address] PCP - General Family Medicine 08/06/22 Event Marketing Representative Relationship Specialty Start Date End Date Jocelyn Wolff PA-C [address] [place] [address] PCP - General Family Medicine 08/06/22 Event Marketing Representative Relationship Specialty Start Date End Date Jocelyn Wolff PA-C [address] [place] [address] PCP - General Family Medicine 08/06/22 Event Marketing Representative Relationship Specialty Start Date End Date Jocelyn Wolff PA-C [address] [place] [address] PCP - General Family Medicine 08/06/22 Event Marketing Representative Relationship Specialty Start Date End Date Jocelyn Wolff PA-C [address] [place], [place] [id number] PCP - General Family Medicine 08/06/22 09/09/23 Event Marketing Representative Relationship Specialty Start Date End Date Jocelyn Wolff PA-C [address] [facility], [place] [id number] PCP - General Family Medicine 01/13/21 07/09/22 Event Marketing Representative Relationship Specialty Start Date End Date Jocelyn Wolff PA-C [address] [place], [place] [id number] PCP - General Family Medicine 01/13/21 07/09/22 Team Status: Active Member Role Status Dates Dr. Cirilo Arnold III, MD Family Provider Active LEROY Khalil Primary Care Provider Active Team Status: Inactive Member Role Status Dates LEROY Khalil Primary Care Provider Active Start: February 11, 2025 End: February 11, 2025 Dr. Efren Lynn MD Attending Provider Active Start: February 11, 2025 End: February 11, 2025 Dr. Efren Lynn MD Referring Provider Active Start: February 11, 2025 End: February 11, 2025 INFORMATION SOURCE (unrecogn ized section and content) DATE CREATED AUTHOR 03/22/2022 [facility] DATE CREATED AUTHOR AUTHOR'S ORGANIZ ATION 11/24/2023 [facility] DATE CREATED AUTHOR AUTHOR'S ORGANIZ ATION 02/14/2025 [facility] Goals (unrecognized section and content) Goals may be documented in a n alternate section FOR RECORDS PERTAINING TO PATIENTS WHO ARE OR HAVE BEEN ENROLLED IN A CHEMICAL DEPENDENCY/SUBSTANCEABUSE PROGRAM, SOME INFORMATION MAY BE OMITTED. This clinical summary was aggregated from multiple sources. Caution should be exercised in using it in the provision of clinical care. This summary normalizes information from multiple sources, and as a consequence, information in this document may materially change the coding, format and clinical context of patient data. In addition, data may be omitted in some cases. CLINICAL DECISIONS SHOULD BE BASED ON THE PRIMARY CLINICAL RECORDS. [facility] [employer] [facility] provides no warranty or guarantee of the accuracy or completeness of information in this document.
--- OUTSIDE RECORDS SUMMARY | 2025-04-12 21:12 | XMS RPT_ITS | CCD ---
Author Organization [facility] CliniSyms Care Team Providers Care Tile Mechanic Helper Name Role Phone New PAJessCJocelyn Primary Care Provider Wolff RICHELLE PA Jocelyn Reed Primary Care Provider [phone] Dr. Raymond Brooks Emergency Provider Dr. Lina Welsh Admit Provider Dr. Lina Welsh Attending Provider Dr. Lina Welsh Other Provider Jocelyn Wolff PA-C Primary Care Provider Wolff PAJessC, Jocelyn Reed Primary Care Provider Unavailable Primary Care Provider Unavailabl e Unavailable Primary Care Provider Unavailabl e RICHELLE Kathleen Primary Care Provider Dr. Raymond Brooks Emergency Provider [phone] Dr. Lina Welsh Admit Provider Dr. Lina [...] Wolff PA-C, M Mary Primary Care Provider Jocelyn Wolff PA-C Primary Care Provider Phoenix MCNEILC, Sena Primary Care Provider [phone] Leah SALGADO, Dr. Schwartz Attending Provider [phone] Efren Lynn MD Referring Provider [place], Sena Primary Care Unavailable Efren Lynn Referring Unavailable Efren Lynn Attending Unavailable PhoenixSena scott Referring Unavailable PhoenixSena Attending Unavailable [place], [place] Primary Care Unavailable Allergies Allergy Classification Reported Allergen(s) Allergy Type Date of Onset Reaction(s) Facility (20 sources) Acetaminophen / HYDROcodone; Translations: [HYDROCODONE-ACETAM INOPHEN] Drug Allergy 05-04-20 05 Mental Status Change [facility] Work Phone: (20 sources) adalimumab; Translations: [ADALIMUMAB] Drug Allergy 04-07-20 13 Rash [facility] Work Phone: (20 sources) Amitriptyline; Translations: [AMITRIPTYLINE] Drug Allergy 12-18-19 20 GI Upset [facility] (20 sources) Benzoyl Peroxide / Erythromycin; Translations: [ERYTHROMYCIN-BENZO YL PEROXIDE] Drug Allergy 08-01-20 05 Intolerance [facility] Work Phone: (20 sources) Capsaicin; Translations: [CAPSAICIN] Drug Allergy 08-23-20 05 [facility] Work Phone: (20 sources) Diclofenac; Translations: [DICLOFENAC SODIUM] Drug Allergy 08-29-20 05 [facility] (20 sources) Etodolac; Translations: [ETODOLAC] Drug Allergy 10-11-19 06 GI Upset [facility] Work Phone: (20 sources) gabapentin; Translations: [GABAPENTIN] Drug Allergy 08-01-20 05 [facility] Work Phone: (20 sources) guaiFENesin / Pseudoephedrine; Translations: [PSEUDOEPHEDRINE- AIFENESIN] Drug Allergy 04-14-20 11 Diarrhea [facility] Work Phone: (20 sources) Methotrexate; Translations: [METHOTREXATE] Drug Allergy 04-05-20 14 Other: See Comments [facility] (13 sources) Non-steroidal anti-inflammatory agent; Translations: [NSAIDS (NON-STEROIDAL ANTI-INFLAMMATORY DRUG)] Drug Intolerance 07-06-20 19 Other: See Comments [facility] (20 sources) Sulfamethoxazole / Trimethoprim; Translations: [SULFAMETHOXAZOLE-T RIMETHOPRIM] Drug Allergy 05-04-20 05 GI Upset [facility] Work Phone: (20 sources) traMADol; Translations: [TRAMADOL HCL] Drug Allergy 08-01-20 05 Diarrhea [facility] Work Phone: (20 sources) environmental [Other] Propensity to adverse reactions 08-19-20 07 [facility] (20 sources) Non-steroidal anti-inflammatory agent Drug Intolerance 07-06-20 19 Other: See Comments [facility] (5 sources) HYDROcodone; Translations: [hydrocodone bitartrate] Drug Allergy 06-14-20 22 Other, Vomiting [facility] (4 sources) Sulfamethoxazole Drug Allergy 06-14-20 22 Vomiting [facility] (4 sources) Trimethoprim Drug Allergy 06-14-20 22 Vomiting [facility] (1 source) Cat Dander Propensity to adverse reactions to drug 11-24-19 24 Other: See Comments [facility] Work Phone: (1 source) OTHER; Translations: [OTHER] Propensity to adverse reactions (disorder) 08-19-20 07 [facility] Repository (1 source) Sulfamethoxazole Drug Allergy 11-02-19 23 [facility] Repository (1 source) Trimethoprim Drug Allergy 11-02-19 23 [facility] Repository Medications Current Medications Medication Drug Class(es) [...] pain oxyCODONE-acetaminophen (PERCOCET) 5-325 mg tablet Indications: 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 Take 2 tablets by mo [facility] every 4 hours as needed for pain. [...] then 1/2 tab daily x 4 days [id number] actuat albuterol 0.09 mg/actuat metered dose [...] on above: Take 2 tablets by mo [facility] every 4 hours as needed for pain. [...] Comment on above: Take 2 tablets by [facility] once daily for 5 days. Take 4 [...] (NARC AN) 4 mg/actuation nasal spray 1 [place] by nasal (alternating) route as directed for 1 dose. 1 spray into 1 nostril. Additional doses may be given every 2-3 minutes until emergency arrives. 1 Each 06/22/2021 Active Comment on above: 1 [place] by nasal (al ternating) route as directed [...] sources) Prescribed medication regimen behavior finding; Translations: [vermin 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 (current) use of opiate analgesic] Onset: 8 [...] Viewson 02-12-20 Knee 1 or [address] [facility] Imaging Services [address] [place] [address] Knee 1 or 2 Views MR#: [id number] Acct: [id number] Name: PAULINA MEI Rep #: [id number] : 1965 F 59 From: Ta han MD PCP: TARUN KhalilC Status: REG CLI Study: Knee 1 or 2 Views Date of Exam: 02/11/25 Exam# [id number] Ordering Dr: Efren Lynn MD PROCEDURE: KNEE [...] No evidence for acute abnormality. Reading Location: [place] [address] CC: MANAGER GENERAL-C Sena Garibay; Dr. Efren Lynn MD Emergency Room Nurse: Signed Normal [facility] Knee 1 or [address] [facility] Imaging Services [address] [place], [place] [address] Knee 1 or 2 Views MR#: [id number] Acct: [id number] Name: PAULINA MEI Rep #: [id number] : 1965 F 59 From: Ta han MD PCP: LEROY Khalil Status: REG CLI Study: Knee 1 or 2 Views Date of Exam: 02/11/25 Exam# [id number] Ordering Dr: Efren Lynn MD PROCEDURE: KNEE [...] of degenerative joint disease, increased. Reading Location: [place] [address] CC: MANAGER GENERAL-C Sena Garibay; Dr. Efren Lynn MD Emergency Room Nurse: Signed Normal [facility] Lumbar Spine 2 or 3 Viewson 02-11-2025 Lumbar Spine 2 or [address] [facility] Imaging Services [address] [place], [place] [address] Lumbar Spine 2 or 3 Views MR#: [id number] Acct: [id number] Name: PAULINA MEI Rep #: [id number] : 1965 F 59 From: Ta han MD PCP: LEROY Khalil Status: REG CLI Study: Lumbar Spine 2 or 3 Views Date of Exam: Exam# [id number] Ordering Dr: Efren Lynn MD PROCEDURE: LUMBAR [...] or 3 Views IMPRESSION: Spondylosis. [facility] CC: LEROY Garibay; Dr. Efren Lynn MD Emergency Room Nurse: Signed Normal [facility] CBC W/Diff, Automatedon 04-03 Absolute Lymph 1.30 X10 3/uL Normal 0.83-4.51 [facility] Comment on above: Performed By: #### L 500.4050, L501.9520, L100.0100, L500.4100, L503.0105, L506.0400, L506.1000 #### [facility] [address] [place], [address] Absolute Neut 2.8 X10 3/uL Normal 2.0-7.7 [facility] Comment on above: Performed By: #### L 500.4050, L501.9520, L100.0100, L500.4100, L503.0105, L506.0400, L506.1000 #### [facility] [address] [place], [address] Basophils/100 WBC (Bld) 0.7 % Normal 0-1 [facility] Comment on above: Performed By: #### L 500.4050, L501.9520, L100.0100, L500.4100, L503.0105, L506.0400, L506.1000 #### [facility] [address] [place], [address] Eosinophils/100 WBC (Bld) 1.5 % Normal 0-5 [facility] Comment on above: Performed By: #### L 500.4050, L501.9520, L100.0100, L500.4100, L503.0105, L506.0400, L506.1000 #### [facility] [address] [place], [address] Erythrocyte distribution width (RBC) [Ratio] 17.8 % High 11.6-14.6 [facility] Comment on above: Performed By: #### L 500.4050, L501.9520, L100.0100, L500.4100, L503.0105, L506.0400, L506.1000 #### [facility] [address] [place], [address] Hematocrit (Bld) [Volume fraction] 36.0 % Low 37-47 [facility] Comment on above: Performed By: #### L 500.4050, L501.9520, L100.0100, L500.4100, L503.0105, L506.0400, L506.1000 #### [facility] [address] [place], [address] Hemoglobin (Bld) [Mass/Vol] 10.3 g/dL Low 12.0-15.0 [facility] Comment on above: Performed By: #### L 500.4050, L501.9520, L100.0100, L500.4100, L503.0105, L506.0400, L506.1000 #### [facility] [address] [place], [address] IG% 0.200 Normal 0.0-0.9 [facility] Comment on above: Result Comment: IG% - Immature Granulocytes (promyelocytes, myelocytes and metamyelocytes) > 1% indicates that a LEFT SHIFT is Present. Performed By: #### L 500.4050, L501.9520, L100.0100, L500.4100, L503.0105, L506.0400, L506.1000 #### [facility] [address] [place], [address] Lymphocytes/100 WBC (Bld) 28.7 % Normal 19-41 [facility] Comment on above: Performed By: #### L 500.4050, L501.9520, L100.0100, L500.4100, L503.0105, L506.0400, L506.1000 #### [facility] [address] [place], [address] MCH (RBC) [Entitic mass] 22.9 pg Low 27.0-32.0 [facility] Comment on above: Performed By: #### L 500.4050, L501.9520, L100.0100, L500.4100, L503.0105, L506.0400, L506.1000 #### [facility] [address] [place], [address] MCHC (RBC) [Mass/Vol] 28.6 g/dL Low 32-36 [facility] Comment on above: Performed By: #### L 500.4050, L501.9520, L100.0100, L500.4100, L503.0105, L506.0400, L506.1000 #### [facility] [address] [place], [address] MCV (RBC) [Entitic vol] 80.0 fL Low 81-99 [facility] Comment on above: Performed By: #### L 500.4050, L501.9520, L100.0100, L500.4100, L503.0105, L506.0400, L506.1000 #### [facility] [address] [place], [address] Monocytes/100 WBC (Bld) 6.8 % Normal 0-10 [facility] Comment on above: Performed By: #### L 500.4050, L501.9520, L100.0100, L500.4100, L503.0105, L506.0400, L506.1000 #### [facility] [address] [place], [address] Neutrophils/100 WBC (Bld) 62.1 % Normal 47-70 [facility] Comment on above: Performed By: #### L 500.4050, L501.9520, L100.0100, L500.4100, L503.0105, L506.0400, L506.1000 #### [facility] [address] [place], [address] Nucleated RBC (Bld) [#/Vol] 0 10*3/uL Normal 0-5 [facility] Comment on above: Performed By: #### L 500.4050, L501.9520, L100.0100, L500.4100, L503.0105, L506.0400, L506.1000 #### [facility] [address] [place], [address] Platelet mean volume (Bld) [Entitic vol] 10.5 fL Normal 6.2-12.0 [facility] Comment on above: Performed By: #### L 500.4050, L501.9520, L100.0100, L500.4100, L503.0105, L506.0400, L506.1000 #### [facility] [address] [place], [address] Platelets (Bld) [#/Vol] 283 10*3/uL Normal 150-450 [facility] Comment on above: Performed By: #### L 500.4050, L501.9520, L100.0100, L500.4100, L503.0105, L506.0400, L506.1000 #### [facility] [address] [place], [address] RBC (Bld) [#/Vol] 4.50 10*6/uL Normal 4.2-5.4 [facility] Comment on above: Performed By: #### L 500.4050, L501.9520, L100.0100, L500.4100, L503.0105, L506.0400, L506.1000 #### [facility] [address] [place], [address] RDW SD 51.4 fl High 35.1-43.9 [facility] Comment on above: Performed By: #### L 500.4050, L501.9520, L100.0100, L500.4100, L503.0105, L506.0400, L506.1000 #### [facility] [address] [place], [address] WBC (Bld) [#/Vol] 4.5 10*3/uL Normal 4.4-11.0 [facility] Comment on above: Performed By: #### L 500.4050, L501.9520, L100.0100, L500.4100, L503.0105, L506.0400, L506.1000 #### [facility] [address] [place], [address] Comprehensive Metabolic Prof [facility] 04-27-2024 Albumin [Mass/Vol] 2.8 g/dL Low 3.2-5.0 [facility] Comment on above: Performed By: #### L 500.4050, L501.9520, L100.0100, L500.4100, L503.0105, L506.0400, L506.1000 #### [facility] [address] [place], [address] Albumin/Globulin [Mass ratio] 0.7 {ratio} Low 0.9-2.4 [facility] Comment on above: Performed By: #### L 500.4050, L501.9520, L100.0100, L500.4100, L503.0105, L506.0400, L506.1000 #### [facility] [address] [place], [address] ALK P 202 U/L High 45-117 [facility] Comment on above: Performed By: #### L 500.4050, L501.9520, L100.0100, L500.4100, L503.0105, L506.0400, L506.1000 #### [facility] [address] [place], [address] ALT [Catalytic activity/Vol] 20 U/L Normal 13-56 [facility] Comment on above: Performed By: #### L 500.4050, L501.9520, L100.0100, L500.4100, L503.0105, L506.0400, L506.1000 #### [facility] [address] [place], [address] AST [Catalytic activity/Vol] 12 U/L Low 15-37 [facility] Comment on above: Performed By: #### L 500.4050, L501.9520, L100.0100, L500.4100, L503.0105, L506.0400, L506.1000 #### [facility] [address] [place], [address] Bilirubin [Mass/Vol] 0.20 mg/dL Normal 0.20-1.00 [facility] Comment on above: Result Comment: For patients on eltrombopag therapy, use of Dimension [place] TBIL is not recommended. Performed By: #### L 500.4050, L501.9520, L100.0100, L500.4100, L503.0105, L506.0400, L506.1000 #### [facility] [address] [place], [address] BUN/CRE 18.7 RATIO Normal 10-20 [facility] Comment on above: Performed By: #### L 500.4050, L501.9520, L100.0100, L500.4100, L503.0105, L506.0400, L506.1000 #### [facility] [address] [place], [address] CA,Total 8.4 mg/dL Low 8.5-10.1 [facility] Comment on above: Performed By: #### L 500.4050, L501.9520, L100.0100, L500.4100, L503.0105, L506.0400, L506.1000 #### [facility] [address] [place], [address] Chloride [Moles/Vol] 115 mmol/L High 98-107 [facility] Comment on above: Performed By: #### L 500.4050, L501.9520, L100.0100, L500.4100, L503.0105, L506.0400, L506.1000 #### [facility] [address] [place], [address] CO2 [Moles/Vol] 19.0 mmol/L Low 21.0-32.0 [facility] Comment on above: Performed By: #### L 500.4050, L501.9520, L100.0100, L500.4100, L503.0105, L506.0400, L506.1000 #### [facility] [address] [place], [address] Creatinine [Mass/Vol] 0.53 mg/dL Low 0.55-1.02 [facility] Comment on above: Result Comment: The validity of the calculated GFR GFRAA in patients over 70 years has not been determined. Clinical correlation is essential. Performed By: #### L 500.4050, L501.9520, L100.0100, L500.4100, L503.0105, L506.0400, L506.1000 #### [facility] [address] [place], [address] EST GFR - AA 151 mL/min Normal >60 [facility] Comment on above: Result Comment: Afri can Nigerian GFR Calc Performed By: #### L 500.4050, L501.9520, L100.0100, L500.4100, L503.0105, L506.0400, L506.1000 #### [facility] [address] [place], [address] GAP 7 Normal 5-15 [facility] Comment on above: Performed By: #### L 500.4050, L501.9520, L100.0100, L500.4100, L503.0105, L506.0400, L506.1000 #### [facility] [address] [place], [address] GFR/1.73 sq M.predicted among non-blacks MDRD (S/P/Bld) [Vol rate/Area] 125 mL/min/{1.73_m2} Normal >60 [facility] Comment on above: Result Comment: Non- GFR Calc Performed By: #### L 500.4050, L501.9520, L100.0100, L500.4100, L503.0105, L506.0400, L506.1000 #### [facility] [address] [place], [address] Globulin (S) [Mass/Vol] 4.0 g/dL Normal 2.2-4.2 [facility] Comment on above: Performed By: #### L 500.4050, L501.9520, L100.0100, L500.4100, L503.0105, L506.0400, L506.1000 #### [facility] [address] [place], [address] Glucose [Mass/Vol] 95 mg/dL Normal 74-106 [facility] Comment on above: Performed By: #### L 500.4050, L501.9520, L100.0100, L500.4100, L503.0105, L506.0400, L506.1000 #### [facility] [address] [place], [address] Potassium [Moles/Vol] 3.5 mmol/L Normal 3.5-5.1 [facility] Comment on above: Performed By: #### L 500.4050, L501.9520, L100.0100, L500.4100, L503.0105, L506.0400, L506.1000 #### [facility] [address] [place], [address] Sodium [Moles/Vol] 141 mmol/L Normal 136-145 [facility] Comment on above: Performed By: #### L 500.4050, L501.9520, L100.0100, L500.4100, L503.0105, L506.0400, L506.1000 #### [facility] [address] [place], [address] T PROT 6.8 g/dL Normal 6.4-8.2 [facility] Comment on above: Performed By: #### L 500.4050, L501.9520, L100.0100, L500.4100, L503.0105, L506.0400, L506.1000 #### [facility] [address] [place], [address] Urea nitrogen [Mass/Vol] 10 mg/dL Normal 7-18 [facility] Comment on above: Performed By: #### L 500.4050, L501.9520, L100.0100, L500.4100, L503.0105, L506.0400, L506.1000 #### [facility] [address] [place], [address] Lipid Profileon 04-27-2024 Cholesterol [Mass/Vol] 155 mg/dL Normal 200 [facility] Comment on above: Result Comment: <200 mg/dL Desirable 200-240 mg/dL Borderline >240 mg/dL High Risk Performed By: #### L 500.4050, L501.9520, L100.0100, L500.4100, L503.0105, L506.0400, L506.1000 #### [facility] [address] [place], [address] Cholesterol in HDL [Mass/Vol] 51 mg/dL Normal [facility] Comment on above: Result Comment: The drugs N-Acetylcysteine and Metamizole may falsely depress this assay. Reference Range HDL <40 mg/dL Low HDL Cholesterol HDL >or= 60 mg/dL High HDL Cholesterol Performed By: #### L 500.4050, L501.9520, L100.0100, L500.4100, L503.0105, L506.0400, L506.1000 #### [facility] [address] [place], [address] Cholesterol in LDL [Mass/Vol] 87 mg/dL Normal 0-130 [facility] Comment on above: Performed By: #### L 500.4050, L501.9520, L100.0100, L500.4100, L503.0105, L506.0400, L506.1000 #### [facility] [address] [place], [address] Cholesterol in VLDL [Mass/Vol] 17 mg/dL Normal 5-40 [facility] Comment on above: Performed By: #### L 500.4050, L501.9520, L100.0100, L500.4100, L503.0105, L506.0400, L506.1000 #### [facility] [address] [place], [address] Triglyceride [Mass/Vol] 87 mg/dL Normal [facility] Comment on above: Result Comment: The drugs N-Acetylcysteine and Metamizole may falsely depress this assay. Serum Triglycerides Reference Interval Normal <150 mg/dL Borderline high 150 - 199 mg/dL High 200 - 499 mg/dL Very High > or = 500 mg/dL Performed By: #### L 500.4050, L501.9520, L100.0100, L500.4100, L503.0105, L506.0400, L506.1000 #### [facility] [address] [place], [address] T4 Free Directon 04-27-2024 T4 FREE DIRECT 0.92 ng/dL Normal 0.76-1.46 [facility] Comment on above: Performed By: #### L 500.4050, L501.9520, L100.0100, L500.4100, L503.0105, L506.0400, L506.1000 #### [facility] [address] [place], [address] Thyroid Stim Hormone (TSH)on 04-27-2024 TSH 5.860 uIU/mL High 0.358-3.740 [facility] Comment on above: Performed By: #### L 500.4050, L501.9520, L100.0100, L500.4100, L503.0105, L506.0400, L506.1000 #### [facility] [address] [place], [address] Vitamin B12on 04-27-2024 Cobalamin (Vitamin B12) [Mass/Vol] 259 pg/mL Normal 211-911 [facility] Comment on above: Performed By: #### L 500.4050, L501.9520, L100.0100, L500.4100, L503.0105, L506.0400, L506.1000 #### [facility] [address] [place], [address] Vitamin D,25 Hydroxyon 04-27 Vitamin D 25-OH 6.2 ng/mL Normal [facility] Comment on above: Result Comment: Sharonda min D 25(OH) Status Range Deficiency <20 ng/mL (50nmol/L) Insufficiency 20 - 30 ng/mL (50 - 75 nmol/L) Sufficiency 30 - 100 ng/mL (75 - 250 nmol/L) Toxicity >100 ng/mL (>250 nmol/L) Performed By: #### L 500.4050, L501.9520, L100.0100, L500.4100, L503.0105, L506.0400, L506.1000 #### [facility] [place], [address] CNOVon 11-24-2023 [facility] MEIPAULINA Mobley ([id number]) 1965 F NFR Date Time Provider Department 11/24/23 10:30 AM ERNA KELLEY [facility] During your visit today, we recorded the following information about you: Temperature Pulse Respiration Blood pressure 97.6 degrees 96/minute 18/minute 125/84 Weight 77.6 kg Erna Kelley APRN.[employer]PLICATION[employer] SPECIALIST 11/24/2023 10:59 AM Signed CC: Patient presents [...] migrainosus Morbid obesity due to excess calories ([facility]) 12/15/2015 Polyneuropathy in other diseases classified elsewhere ([facility]) Recurrent major depression in partial remission ([facility]) 02/29/2020 Rheumatoid arthritis(714.0) Systemic lupus erythematosus arthritis ([facility]) 03/18/2014 Unspecified asthma(493.90) Unspecified hypothyroidism Vitamin B [...] for overd (more content not included)... Normal [facility] COVID AND INFLUENZA A/B AND RSV NAAT, ROUTINEon 11-24-2023 SARS-CoV-2 (COVID-19) RNA NURY+probe Ql (Unsp spec) COVID 19 RESULT: Not detected The method used is RT-PCR or an equivalent NAAT method. Reference Range (the expected result in uninfected individuals): Not detected INFLUENZA A PCR: Not detected INFLUENZA B PCR: Not detected RSV PCR: Not detected Normal [facility] Comment on above: Performed By: #### C VFLRS ####[facility] LABCLIA [id number] [address] [place] 08-28-2023 EMILY Telephone (FAMPWS) SIGIFREDOPAULINA Shen ([id number]) 1965 F NFR Date Time Provider Department [...] Signed 1st attempt: VM is full, sending Reputation.comt message for patient to call in to [...] [R68.89] Order(s):CONSULT TO NEUROLOGY [9019] Order #: [id number]: 1 FUTURE Prescriptions as of 09/26/2023 - [...] naloxone (NARCAN) 4 mg/actuation nasal spray 1 [place] by nasal (alternating) route as directed for [...] dx 250.00 (more content not included)... Normal [facility] 07-23-2023 [place] Telephone (FAMPWS) MEIPAULINA Mobley ([id number]) 1965 F NFR Date Time Provider Department [...] did COVID test was negative. Patient uses [facility] for her pharmacy. Please advise Marsha Macias [...] naloxone (NARCAN) 4 mg/actuation nasal spray 1 [place] by nasal (alternating) route as directed for [...] [L56.8] 10/10/2009 (more content not included)... Normal [facility] PAULINA MEI ([id number]) 1965 F NFR Date Time Provider Department [...] be on an antibiotic. ILA Dalal Christy, APRN.FIELD APPLICATIONS SPECIALIST 07/05/2023 4:40 PM Signed It can be [...] [R93.89] Order(s):CONSULT TO DENTISTRY [] Order #: [id number]: 1 FUTURE Prescriptions as of 07/08/2023 - [...] (muscle spasms). (more content not included)... Normal [facility] MRI BRAIN WO IVCONon 023 MRI BRAIN [...] be due to sequelae of avascular necrosis. Emergency Room Nurse: HERMES Transcribe Date/Time: Jul 04 2023 4:44P Dictated by : CARLOTTA LYN MD This examination was interpreted and the report reviewed and electronically signed by: CARLOTTA LYN MD on Jul 04 2023 4:49PM EST [id number] Normal [facility] 06-14-2023 CNPN Telephone (FAMPWS) PAULINA MEI ([id number]) 1965 F NFR Date Time Provider Department [...] back with Dr Mariela Arnold. Patient uses [facility] for her pharmacy. Patient is asking for rx to help get rid of the headache, she thinks from the weather change. Please advise Marsha Macias APRN.FIELD APPLICATIONS SPECIALIST 06/14/2023 3:47 PM Signed She was seen [...] Pt reports that she will go to [facility] ER. Yamile Michael LPN Allergies As of [...] naloxone (NARCAN) 4 mg/actuation nasal spray 1 [place] by nasal (alternating) route as directed for [...] 1 table (more content not included)... [facility] Telephone (FAMFrankWS) PAULINA MEI ([id number]) 1965 F NFR Date Time Provider Department [...] patient once script has been sent please. [phone] Thank you. Marsha Macias APRN.CNP 06/07/2023 3:40 [...] tabletRfl: 5 ZINC BLD [SQZINC] Order #: [id number] FUTURE VITAMIN D 25 HYDROXY [SQVITD] Order #: [id number] FUTURE TSH BLD [SQTSH] Order #: [id number] FUTURE T4 FREE/FREE THYROX [SQFT4] Order #: [id number] FUTURE VITAMIN B12 BLOOD [SQB12] Order #: [id number] FUTURE cyanocobalamin 1,000 mcg/mLInject 1 mL subcutaneously [...] 1 t (more content not included)... Normal [facility] 25(OH)D3 Lucianol-uriel 2022 25-hydroxyvitamin D3 [Mass/Vol] 5.8 ng/mL Low 31.0-80.0 [facility] Comment on above: Order Comment: Speci men Type: BLOOD SPECIMEN Ordering Facility: [facility] Address: [address] [place] [address] Result Comment: Clas sification of 25 OH Vitamin D status: Deficiency/Insufficiency: < or = 30 ng/ml. Sufficiency/Optimal Levels: 31-80 ng/mL Toxicity: > 100 ng/mL. Test performed by chemiluminescent immunoassay. Performed By: #### 1 989-3 #### [facility] CLIA [id number] [address] [place] [address] [place] Basic metabolic 2000 panelon 06-04-2023 Anion gap [Moles/Vol] 9 mmol/L Normal 9-18 [facility] Comment on above: Order Comment: Speci men Type: BLOOD SPECIMENOrdering Facility: [facility] Address: [address] [place] [address] Performed By: #### 3 024-7, 3016-3, 74599-3, 08534-2 ####[facility] [id number] [place] [address] [place] Calcium [Mass/Vol] 8.5 mg/dL Normal 8.5-10.2 [facility] Comment on above: Order Comment: Speci men Type: BLOOD SPECIMENOrdering Facility: [facility] Address: [address] [place] [address] Performed By: #### 3 024-7, 3016-3, 58279-7, 42875-9 ####[facility]CLIA [id number] [address] [place] Chloride [Moles/Vol] 115 mmol/L High 97-105 [facility] Comment on above: Order Comment: Speci men Type: BLOOD SPECIMENOrdering Facility: [facility] Address: [address] [place] [address] Performed By: #### 3 024-7, 3016-3, 13781-5, 67187-8 ####[facility]CLIA [id number] [place] [address] [place] CO2 [Moles/Vol] 18 mmol/L Low 22-30 [facility] Comment on above: Order Comment: Specjuliano men Type: BLOOD SPECIMENOrdering Facility: [facility] Address: [address] [place] [address] Performed By: #### 3 024-7, 3016-3, 37141-3, 10997-5 ####[facility]CLIA [id number] [address] [place] Creatinine [Mass/Vol] 0.62 mg/dL Normal 0.58-0.96 [facility] Comment on above: Order Comment: Arti men Type: BLOOD SPECIMENOrdering Facility: [facility] Address: [address] [place] [address] Performed By: #### 3 024-7, 3016-3, 06434-6, 27203-1 ####[facility]IA [id number] [place] [address] [place] Creatinine and Glomerular filtration rate.predicted panel (S/P/Bld) 104 mL/min/1.73m??? Normal >=60 [facility] Comment on above: Order Comment: Specjuliano hussein Type: BLOOD SPECIMENOrdering Facility: [facility] Address: [address] [place] [address] Result Comment: Rachel mated Glomerular Filtration Rate [...] GFR. Performed By: #### 3 024-7, 3016-3, 04969-1, 55955-8 ####[facility]CLIA [id number] [place] [address] [place] Glucose [Mass/Vol] 86 mg/dL Normal 74-99 [facility] Comment on above: Order Comment: Speci men Type: BLOOD SPECIMENOrdering Facility: [facility] Address: [address] [place] [address] Result Comment: The [place] Diabetes Association (ADA) provides guidance for cutoff [...] Standards of Medical Care in Diabetes 2016, [place] Diabetes Association. Diabetes Care. 2016.39(Suppl 1). Performed By: #### 3 024-7, 3016-3, 97333-7, 72347-3 ####[facility]CLIA [id number] [place] [address] [place] Potassium [Moles/Vol] 4.0 mmol/L Normal 3.7-5.1 [facility] Comment on above: Order Comment: Malick hussein Type: BLOOD SPECIMENOrdering Facility: [facility] Address: [address] [place] [address] Performed By: #### 3 024-7, 3016-3, 71017-2, 35646-4 ####[facility]CLIA [id number] [place] [address] [place] Sodium [Moles/Vol] 142 mmol/L Normal 136-144 [facility] Comment on above: Order Comment: Arti men Type: BLOOD SPECIMENOrdering Facility: [facility] Address: [address] [place] [address] Performed By: #### 3 024-7, 3016-3, 50859-9, 27586-4 ####[facility]CLIA [id number] [place] [address] [place] Urea nitrogen [Mass/Vol] 15 mg/dL Normal 7-21 [facility] Comment on above: Order Comment: Speci men Type: BLOOD SPECIMENOrdering Facility: [facility] Address: [address] [place] [address] Performed By: #### 3 024-7, 3016-3, 58983-1, 91337-6 ####[facility]CLIA [id number] [place] [address] [place] CBC W Auto Differential pane l (Bld)on 06-04-2023 Basophils (Bld) [#/Vol] 0.05 10*3/uL Normal <0.11 [facility] Comment on above: Order Comment: Speci men Type: BLOOD SPECIMEN Ordering Facility: [facility] Address: [address] [place] [address] Performed By: #### 5 7021-8 #### [facility] CLIA [id number] [address] [place] [address] [place] Basophils/100 WBC (Bld) 1.0 % Normal [facility] Comment on above: Order Comment: Speci men Type: BLOOD SPECIMEN Ordering Facility: [facility] Address: [address] [place] [address] Performed By: #### 5 7021-8 #### [facility] CLIA [id number] [address] [place] [address] [place] Differential cell count method Nom (Bld) Auto Normal [facility] Comment on above: Order Comment: Speci men Type: BLOOD SPECIMEN Ordering Facility: [facility] Address: [address] [place] [address] Performed By: #### 5 7021-8 #### [facility] CLIA [id number] [address] [place] [address] [place] Eosinophils (Bld) [#/Vol] 0.10 10*3/uL Normal <0.46 [facility] Comment on above: Order Comment: Speci men Type: BLOOD SPECIMEN Ordering Facility: [facility] Address: [address] Performed By: #### 5 7021-8 #### [facility] CLIA [id number] [address] [place] [address] [place] Eosinophils/100 WBC (Bld) 2.0 % Normal [facility] Comment on above: Order Comment: Speci men Type: BLOOD SPECIMEN Ordering Facility: [facility] Address: [address] Performed By: #### 5 7021-8 #### [facility] CLIA [id number] [address] [place] [address] [place] Erythrocyte distribution width (RBC) [Ratio] 16.5 % High 11.5-15.0 [facility] Comment on above: Order Comment: Speci men Type: BLOOD SPECIMEN Ordering Facility: [facility] Address: [address] Performed By: #### 5 7021-8 #### [facility] CLIA [id number] [address] [place] [address] [place] Hematocrit (Bld) [Volume fraction] 39.1 % Normal 36.0-46.0 [facility] Comment on above: Order Comment: Speci men Type: BLOOD SPECIMEN Ordering Facility: [facility] Address: [address] Performed By: #### 5 7021-8 #### [facility] CLIA [id number] [address] [place] [address] [place] Hemoglobin (Bld) [Mass/Vol] 11.2 g/dL Low 11.5-15.5 [facility] Comment on above: Order Comment: Speci men Type: BLOOD SPECIMEN Ordering Facility: [facility] Address: [address] Performed By: #### 5 7021-8 #### [facility] CLIA [id number] [address] [place] [address] [place] Immature granulocytes (Bld) [#/Vol] 10*3/uL Normal <0.10 [facility] Comment on above: Order Comment: Speci men Type: BLOOD SPECIMEN Ordering Facility: [facility] Address: [address] [place] [address] Performed By: #### 5 7021-8 #### [facility] CLIA [id number] [address] [place] [address] [place] Immature granulocytes/100 WBC (Bld) 0.2 % Normal [facility] Comment on above: Order Comment: Speci men Type: BLOOD SPECIMEN Ordering Facility: [facility] Address: [address] [place] [address] Performed By: #### 5 7021-8 #### [facility] CLIA [id number] [address] [place] [address] [place] Lymphocytes (Bld) [#/Vol] 1.28 10*3/uL Normal 1.00-4.00 [facility] Comment on above: Order Comment: Speci men Type: BLOOD SPECIMEN Ordering Facility: [facility] Address: [address] [place], [place] [address] Performed By: #### 5 7021-8 #### [facility] CLIA [id number] [address] [place] [address] [place] Lymphocytes/100 WBC (Bld) 25.9 % Normal [facility] Comment on above: Order Comment: Speci men Type: BLOOD SPECIMEN Ordering Facility: [facility] Address: [address] [place], [place] [address] Performed By: #### 5 7021-8 #### [facility] CLIA [id number] [address] [place] [address] [place] MCH (RBC) [Entitic mass] 23.9 pg Low 26.0-34.0 [facility] Comment on above: Order Comment: Speci men Type: BLOOD SPECIMEN Ordering Facility: [facility] Address: [address] Performed By: #### 5 7021-8 #### [facility] CLIA [id number] [address] [place] [address] [place] MCHC (RBC) [Mass/Vol] 28.6 g/dL Low 30.5-36.0 [facility] Comment on above: Order Comment: Speci men Type: BLOOD SPECIMEN Ordering Facility: [facility] Address: [address] Performed By: #### 5 7021-8 #### [facility] CLIA [id number] [address] [place] [address] [place] MCV (RBC) [Entitic vol] 83.5 fL Normal 80.0-100.0 [facility] Comment on above: Order Comment: Speci men Type: BLOOD SPECIMEN Ordering Facility: [facility] Address: [address] Performed By: #### 5 7021-8 #### [facility] CLIA [id number] [address] [place] [address] [place] Monocytes (Bld) [#/Vol] 0.36 10*3/uL Normal <0.87 [facility] Comment on above: Order Comment: Speci men Type: BLOOD SPECIMEN Ordering Facility: [facility] Address: [address] Performed By: #### 5 7021-8 #### [facility] CLIA [id number] [address] [place] [address] [place] Monocytes/100 WBC (Bld) 7.3 % Normal [facility] Comment on above: Order Comment: Speci men Type: BLOOD SPECIMEN Ordering Facility: [facility] Address: [address] [place], [place] [address] Performed By: #### 5 7021-8 #### [facility] CLIA [id number] [address] [place] [address] [place] Neutrophils (Bld) [#/Vol] 3.15 10*3/uL Normal 1.45-7.50 [facility] Comment on above: Order Comment: Speci men Type: BLOOD SPECIMEN Ordering Facility: [facility] Address: [address] Performed By: #### 5 7021-8 #### [facility] CLIA [id number] [address] [place] [address] [place] Neutrophils/100 WBC (Bld) 63.6 % Normal [facility] Comment on above: Order Comment: Speci men Type: BLOOD SPECIMEN Ordering Facility: [facility] Address: [address] Performed By: #### 5 7021-8 #### [facility] CLIA [id number] [address] [place] [address] [place] Nucleated RBC (Bld) [#/Vol] 10*3/uL Normal <0.01 [facility] Comment on above: Order Comment: Speci men Type: BLOOD SPECIMEN Ordering Facility: [facility] Address: [address] [place] [address] Performed By: #### 5 7021-8 #### [facility] CLIA [id number] [address] [place] [address] [place] Nucleated RBC/100 WBC (Bld) [Ratio] 0.0 /100 WBC Normal [facility] Comment on above: Order Comment: Speci men Type: BLOOD SPECIMEN Ordering Facility: [facility] Address: [address] Performed By: #### 5 7021-8 #### [facility] CLIA [id number] [address] [place] [address] [place] Platelet mean volume (Bld) [Entitic vol] 10.3 fL Normal 9.0-12.7 [facility] Comment on above: Order Comment: Speci men Type: BLOOD SPECIMEN Ordering Facility: [facility] Address: [address] [place], [place] [address] Performed By: #### 5 7021-8 #### [facility] CLIA [id number] [address] [place] [address] [place] Platelets (Bld) [#/Vol] 288 10*3/uL Normal 150-400 [facility] Comment on above: Order Comment: Speci men Type: BLOOD SPECIMEN Ordering Facility: [facility] Address: [address] [place], [place] [address] Performed By: #### 5 7021-8 #### [facility] CLIA [id number] [address] [place] [address] [place] RBC (Bld) [#/Vol] 4.68 10*6/uL Normal 3.90-5.20 [facility] Comment on above: Order Comment: Speci men Type: BLOOD SPECIMEN Ordering Facility: [facility] Address: [address] [place], [place] [address] Performed By: #### 5 7021-8 #### [facility] CLIA [id number] [address] [place] [address] [place] WBC (Bld) [#/Vol] 4.95 10*3/uL Normal 3.70-11.00 [facility] Comment on above: Order Comment: Speci men Type: BLOOD SPECIMEN Ordering Facility: [facility] Address: [address] [place], [place] [address] Performed By: #### 5 7021-8 #### [facility] CLIA [id number] [address] [place] [address] [place] CNOVon 06-04-2023 [facility] PAULINA MEI ([id number]) 1965 F NFR Date Time Provider Department 06/04/23 3:40 PM MARSHA MACIAS During your visit today, we recorded the following information about you: Pulse Respiration Blood pressure 84/minute 16/minute 114/82 Marsha Macias APRN.FIELD APPLICATIONS SPECIALIST 06/04/2023 8:04 PM Signed This is a [...] migrainosus Morbid obesity due to excess calories ([facility]) 12/15/2015 Polyneuropathy in other diseases classified elsewhere ([facility]) Recurrent major depression in partial remission ([facility]) 02/29/2020 Rheumatoid arthritis(714.0) Systemic lupus erythematosus arthritis [...] 20 m (more content not included)... Normal [facility] HbA1c (Bld)on 06-04-2023 Average glucose Estimated from glycated hemoglobin (Bld) [Mass/Vol] 91 mg/dL Normal [facility] Comment on above: Order Comment: Malick hussein Type: BLOOD SPECIMEN Ordering Facility: [facility] Address: [address] [address] Result Comment: eAG: (Estimated average glucose) is a calculated value from HgbA1c and is utility sales representative of the average blood glucose level in the last 2-3 month period. Performed By: #### 5 7021-8 #### [facility] CLIA [id number] [address] [place] [address] [place] [facility] HbA1c (Bld) [Mass fraction] 4.8 % Normal 4.3-5.6 [facility] Comment on above: Order Comment: Malick hussein Type: BLOOD SPECIMEN Ordering Facility: [facility] Address: [address] [address] Result Comment: [place] Diabetes Association guidelines indicate that patients with HgbA1c in the range 5.7-6.4% are at increased risk for development of diabetes, and intervention by lifestyle modification may be beneficial. HgbA1c greater or equal to 6.5% is considered diagnostic of diabetes. Performed By: #### 5 7021-8 #### [facility] CLIA [id number] [address] [place] [address] [place] Hepatic function 2000 panelo n 06-04-2023 Albumin [Mass/Vol] 3.4 g/dL Low 3.9-4.9 [facility] Comment on above: Order Comment: Speci men Type: BLOOD SPECIMENOrdering Facility: [facility] Address: [address] [address] Performed By: #### 3 024-7, 3016-3, 08635-1, 15304-2 ####[facility]IA [id number] [address] [place] ALP [Catalytic activity/Vol] 136 U/L High 34-123 [facility] Comment on above: Order Comment: Speci men Type: BLOOD SPECIMENOrdering Facility: [facility] Address: [address] [address] Performed By: #### 3 024-7, 3016-3, 44914-7, 07252-2 ####[facility]CLIA [id number] [address] [place] ALT [Catalytic activity/Vol] 22 U/L Normal 7-38 [facility] Comment on above: Order Comment: Speci men Type: BLOOD SPECIMENOrdering Facility: [facility] Address: [address] [address] Performed By: #### 3 024-7, 3016-3, 99133-1, 12557-7 ####[facility] LABCLIA [id number] [address] [place] AST [Catalytic activity/Vol] 21 U/L Normal 13-35 [facility] Comment on above: Order Comment: Speci men Type: BLOOD SPECIMENOrdering Facility: [facility] Address: [address] [address] Performed By: #### 3 024-7, 3016-3, 26336-5, 20043-5 ####[facility] LABCLIA [id number] [place] [address] [place] Bilirubin [Mass/Vol] mg/dL Low 0.2-1.3 [facility] Comment on above: Order Comment: Speci men Type: BLOOD SPECIMENOrdering Facility: [facility] Address: [address] [place] [address] Performed By: #### 3 024-7, 3016-3, 73346-0, 82115-5 ####[facility] LABCLIA [id number] [place] [address] [place] Bilirubin.conjugate d [Mass/Vol] mg/dL Normal <0.2 [facility] Comment on above: Order Comment: Speci men Type: BLOOD SPECIMENOrdering Facility: [facility] Address: [address] [place] [address] Performed By: #### 3 024-7, 3016-3, 83740-4, 90865-5 ####[facility] LABCLIA [id number] [place] [address] [place] Protein [Mass/Vol] 6.3 g/dL Normal 6.3-8.0 [facility] Comment on above: Order Comment: Speci men Type: BLOOD SPECIMENOrdering Facility: [facility] Address: [address] [place] [address] Performed By: #### 3 024-7, 3016-3, 36886-0, 40882-4 ####[facility] LABCLIA [id number] [place] [address] [place] T4 Free SerPl-mCncon 023 Free T4 [Mass/Vol] 0.8 ng/dL Low 0.9-1.7 [facility] Comment on above: Order Comment: Speci men Type: BLOOD SPECIMENOrdering Facility: [facility] Address: [address] [place] [address] Performed By: #### 3 024-7, 3016-3, 28216-6, 64982-4 ####[facility] LABIA [id number] [place] [address] [place] TSH SerPl-aCncon 06-04-2023 TSH Qn 3.900 m[IU]/L Normal 0.270-4.200 [facility] Comment on above: Order Comment: Speci men Type: BLOOD SPECIMENOrdering Facility: [facility] Address: [address] [place] [address] Performed By: #### 3 024-7, 3016-3, 51329-9, 82577-4 ####[facility] [id number] [place] [address] [place] Vit B12 SerPl-mCncon 023 Cobalamin (Vitamin B12) [Mass/Vol] 219 pg/mL Low 232-1245 [facility] Comment on above: Order Comment: Speci men Type: BLOOD SPECIMENOrdering Facility: [facility] Address: [address] [place] [address] Performed By: #### 2 132-9 ####[facility] [id number] [place] [address] [place] Zinc SerPl-mCncon 06-04-2023 Zinc [Mass/Vol] 52 ug/dL Low 60-120 [facility] Comment on above: Order Comment: Speci men Type: BLOOD SPECIMENOrdering Facility: [facility] Address: [address] [place] [address] Result Comment: This test was developed and its performance characteristics determined by [facility]'s [place] [place] (-[facility]). It has not been cleared or approved by the FDA. [facility] is regulated under CLIA as qualified to perform high-complexity testing. This test is used for clinical purposes. It should not be regarded as investigational or for research. Performed By: #### 5 763-8 ####[facility] ALEXA [id number] [address] [place] 03-12-2023 CNPN Telephone (ORMDNA) PAULINA MEI ([id number]) 1965 F NFR Date Time Provider Department [...] naloxone (NARCAN) 4 mg/actuation nasal spray 1 [place] by nasal (alternating) route as directed for [...] mi*09/29/2015 Mild (more content not included)... Normal [facility] MEIPAULINA Mobley ([id number]) 1965 F NFR Date Time Provider Department 03/01/23 MARSHA MACIAS During your visit today, we recorded the following information about you: Marsha Macias, [place].FIELD APPLICATIONS SPECIALIST 03/01/2023 12:49 PM Signed Can please let patient know that I did hear back from ortho. The would like her to be non-weight bearing on the right leg until she is evaluated by them. Does she have a wheelchair or walker to use at home? Tanya Vyas TRADE SALES ASSISTANT 03/01/2023 1:14 PM Signed Pt. informed. Allergies [...] naloxone (NARCAN) 4 mg/actuation nasal spray 1 [place] by nasal (alternating) route as directed for [...] Chronic migrain (more content not included)... Normal [facility] 02-[facility] PAUL[facility] ([id number]) 1965 F NFR Date Time Provider Department 02/24/23 MARSHA MACIAS During your visit today, we recorded the following information about you: Marsha Macias APRN.FIELD APPLICATIONS SPECIALIST 02/24/2023 11:21 AM Signed Can please let patient know that we received her knee xray results. It does look like the arthritic changes have progressed/worsened. It also looks like there is a little corner fracture/avulsion fracture in the right knee. Please follow-up with ortho, as planned. I also forwarded the xray results to the provider she is scheduled to see. Marsha Macias APRN.FIELD APPLICATIONS SPECIALIST Sena Lopez MA 02/25/2023 1:22 PM Signed [...] naloxone (NARCAN) 4 mg/actuation nasal spray 1 [place] by nasal (alternating) route as directed for [...] unspecified si (more content not included)... Normal [facility] XR Knee - bilateral 4 ViewsO rdered By: Cc Provider on 02-23-2023 Interpretation and review of laboratory results Abnormal [facility] Radiology Result ACTIONABLE Abnormal [facility] Comment on above: This report contains an [...] contact your provider for the next steps. [facility] XR Knee - bilateral 4 Viewso n 02-23-2023 * * *Final Report* * * DATE OF EXAM: Feb 19 2023 12:10PM WOX 5618 - XR KNEE 4V AP/PA/LAT/[facility] JAI / PROCEDURE REASON: multiple diagnoses [...] Bones are osteopenic. DIVISION OF RADIOLOGY Provider, [facility] - 02/23/2023 * * *Final [...] be communicated with the ordering provider via [employer] staff message or phone message by [employer] within 2 business days of report finalization. Algorithms for management of incidental imaging findings can be found on the [facility] Intranet Sharepoint site at: [email or web address] [email or web address]/Managing%20Incidenta l%20Findi ngs%20at%20Imaging/For ms/AllItems.aspx Emergency Room Nurse: HERMES Transcribe Date/Time: Feb 23 2023 11:53A Dictated by : MELONIE HILLMAN MD This examination was interpreted and the report reviewed and electronically signed by: MELONIE HILLMNA MD on Feb 23 2023 11:59AM EST [facility] XR KNEE 4V AP/PA/LAT/MERCH B ILon 02-19-2023 [...] be communicated with the ordering provider via [employer] staff message or phone message by [employer] within 2 business days of report finalization. Algorithms for management of incidental imaging findings can be found on the [facility] Intranet Sharepoint site at: [email or web address] [email or web address]/Managing%20Incidenta l%20Findi ngs%20at%20Imaging/For ms/AllItems.aspx Emergency Room Nurse: HERMES Transcribe Date/Time: Feb 23 2023 11:53A Dictated by : MELONIE HILLMAN MD This examination was interpreted and the report reviewed and electronically signed by: MELONIE HILLMAN MD on Feb 23 2023 11:59AM EST [id number] ACTIONABLE Invalid Interpretation Code [facility] XR Knee - bilateral 4 Viewso n 02-19-2023 Radiology Study observation (narrative) [facility] CNPAnita [facility] PAULINA MEI ([id number]) 1965 F NFR Date Time Provider Department 02/13/23 Jocelyn WOLFF [facility] During your visit today, we recorded the following information about you: Rahul Morgan 02/13/2023 4:23 PM Signed Patient is requesting a refill for prednisone 10 mg sent to [facility] in [place]. Please advise, thank you. Chloe Vega LPN [...] naloxone (NARCAN) 4 mg/actuation nasal spray 1 [place] by nasal (alternating) route as directed for [...] Wheezing/Shortness of Breath. - blood sugar diagnostic (ONEFiltecUCH ULTRA TEST) test strip test once/day. DX 250.00 no insulin - Blood-Glucose Meter (Diagonal ViewUCH ULTRA SYSTEM KIT) monitoring kit test one [...] [E*06/26/2010 Vitamin (more content not included)... Normal [facility] CNPNon 02-08-2023 CNPN Telephone ([facility]) PAULINA MEI ([id number]) 1965 F NFR Date Time Provider Department 02/08/23 MARSHA MACIAS During your visit today, we recorded the following information about you: Marita Bowden TRADE SALES ASSISTANT 02/08/2023 4:48 PM Signed Patient calling she [...] up moving around. Patient is asking if MANAGER GENERAL would give her something for the knee pain? Patient uses [facility] for her pharmacy. Please advise Marsha Macias APRN.FIELD APPLICATIONS SPECIALIST 02/08/2023 5:19 PM Signed Unfortunately, there is [...] Fully Assessed Reason for Visit: Patient Question [8817] Visit Diagnosis:Iron deficiency anemia, unspecified iron deficiency [...] naloxone (NARCAN) 4 mg/actuation nasal spray 1 [place] by nasal (alternati (more content not included)... Normal [facility] Comprehensive metabolic 2000 panelon 02-07-2023 Albumin [Mass/Vol] 3.3 g/dL Low 3.9 - 4.9 g/dL [facility] ALP [Catalytic activity/Vol] 206 U/L High 34 - 123 U/L [facility] ALT [Catalytic activity/Vol] 17 U/L 7 - 38 U/L [facility] Anion gap [Moles/Vol] 11 mmol/L 9 - 18 mmol/L [facility] AST [Catalytic activity/Vol] 11 U/L Low 13 - 35 U/L [facility] Bilirubin [Mass/Vol] Low 0.2 - 1.3 mg/dL [facility] Calcium [Mass/Vol] 8.4 mg/dL Low 8.5 - 10. 2 mg/dL [facility] Chloride [Moles/Vol] 110 mmol/L High 97 - 105 mmol/L [facility] CO2 [Moles/Vol] 20 mmol/L Low 22 - 30 mmol/L [facility] Creatinine [Mass/Vol] 0.57 mg/dL Low 0.58 - 0.96 mg/dL [facility] Estimated Glomerular Filtration Rate 106 mL/min/1.73m >=60 mL/min/1.73m [facility] Glucose [Mass/Vol] 95 mg/dL 74 - 99 mg/dL [facility] Potassium [Moles/Vol] 4.0 mmol/L 3.7 - 5.1 mmol/L [facility] Protein [Mass/Vol] 6.5 g/dL 6.3 - 8.0 g/dL [facility] Sodium [Moles/Vol] 141 mmol/L 136 - 144 mmol/L [facility] Urea nitrogen [Mass/Vol] 17 mg/dL 7 - 21 mg/dL [facility] FERRITIN BLDon 02-07-2023 Ferritin [Mass/Vol] 24.5 ng/mL 14.7 - 2 05.1 ng/mL [facility] Iron and Iron binding capaci ty panelon 02-07-2023 Iron [Mass/Vol] 16 ug/dL Low 41 - 186 ug/dL [facility] Iron binding capacity [Mass/Vol] 315 ug/dL 232 - 386 ug/dL [facility] Iron/TIBC [Molar ratio] 5.1 % Low 15.0 - 57.0 % [facility] LIPID PANEL, NONFASTINGon Cholesterol [Mass/Vol] 150 mg/dL <200 mg/dL [facility] HDL Cholesterol, Nonfasting 47 mg/dL >39 mg/dL [facility] LDL Cholesterol, Nonfasting 88 mg/dL <100 mg/dL [facility] LDL/HDL Ratio, Nonfasting 1.87 mg/dL <2.54 mg/dL [facility] Non HDL Cholesterol, Nonfasting 103 mg/dL <130 mg/dL [facility] Total Chol/HDL Ratio, Nonfasting 3.19 mg/dL <5.10 mg/dL [facility] Triglycerides, Nonfasting 74 mg/dL <150 mg/dL [facility] VLDL Cholesterol, Nonfasting 15 mg/dL <30 mg/dL [facility] T4 FREE/FREE THYROXon 2022 Free T4 [Mass/Vol] 1.0 ng/dL 0.9 - 1.7 ng/dL [facility] TSH BLDon 02-07-2023 TSH Qn 3.660 m[IU]/L 0.270 - 4.200 mIU/L [facility] VITAMIN B12 BLOODon 02-08-20 Cobalamin (Vitamin B12) [Mass/Vol] 269 pg/mL 232 - 1,245 pg/mL [facility] VITAMIN D 25 HYDROXYon 02-07 25-hydroxyvitamin D3 [Mass/Vol] 7.9 ng/mL Low 31.0 - 80.0 ng/mL [facility] ZINC BLDon 02-07-2023 Zinc [Mass/Vol] 43 ug/dL Low 60 - 120 ug/dL [facility] 25(OH)D3 SerPl-mCncon 2022 25-hydroxyvitamin D3 [Mass/Vol] 7.9 ng/mL Low 31.0-80.0 [facility] Comment on above: Order Comment: Speci men Type: BLOOD SPECIMEN Ordering Facility: [facility] Address: [address] [place] [id number] Result Comment: Clas sification of 25 [place] Vitamin D status: Deficiency/Insufficiency: < or = 30 ng/ml. Sufficiency/Optimal Levels: 31-80 ng/mL Toxicity: > 100 ng/mL. Test performed by chemiluminescent immunoassay. Performed By: ### 5 7021-8 #### [facility] CLIA [id number] [address] [place] [address] [place] CBC W Auto Differential pane l (Bld)on 02-06-2023 Basophils (Bld) [#/Vol] <0.11 k/uL [facility] Basophils/100 WBC (Bld) 0.5 % [facility] Differential cell count method Nom (Bld) Auto [facility] Eosinophils (Bld) [#/Vol] 0.10 10*3/uL <0.46 k/uL [facility] Eosinophils/100 WBC (Bld) 2.7 % [facility] Erythrocyte distribution width (RBC) [Ratio] 16.1 % High 11.5 - 15.0 % [facility] Hematocrit (Bld) [Volume fraction] 36.6 % 36.0 - 46.0 % [facility] Hemoglobin (Bld) [Mass/Vol] 10.6 g/dL Low 11.5 - 15.5 g/dL [facility] Immature granulocytes (Bld) [#/Vol] <0.10 k/uL [facility] Immature granulocytes/100 WBC (Bld) 0.3 % [facility] Lymphocytes (Bld) [#/Vol] 1.15 10*3/uL 1.00 - 4.00 k/uL [facility] Lymphocytes/100 WBC (Bld) 30.9 % [facility] MCH (RBC) [Entitic mass] 23.0 pg Low 26.0 - 34.0 pg [facility] MCHC (RBC) [Mass/Vol] 29.0 g/dL Low 30.5 - 36.0 g/dL [facility] MCV (RBC) [Entitic vol] 79.6 fL Low 80.0 - 100.0 fL [facility] Monocytes (Bld) [#/Vol] 0.31 10*3/uL <0.87 k/uL [facility] Monocytes/100 WBC (Bld) 8.3 % [facility] Neutrophils (Bld) [#/Vol] 2.13 10*3/uL 1.45 - 7.50 k/uL [facility] Neutrophils/100 WBC (Bld) 57.3 % [facility] Nucleated RBC (Bld) [#/Vol] <0.01 k/uL [facility] Nucleated RBC/100 WBC (Bld) [Ratio] 0.0 /100 WBC [facility] Platelet mean volume (Bld) [Entitic vol] 9.6 fL 9.0 - 12.7 fL [facility] Platelets (Bld) [#/Vol] 290 10*3/uL 150 - 400 k/uL [facility] RBC (Bld) [#/Vol] 4.60 10*6/uL 3.90 - 5.2 0 m/uL [facility] WBC (Bld) [#/Vol] 3.72 10*3/uL 3.70 - 11. 00 k/uL [facility] Basophils (Bld) [#/Vol] 10*3/uL Normal <0.11 [facility] Comment on above: Order Comment: Speci men Type: BLOOD SPECIMEN Ordering Facility: [facility] Address: [address] [place] [address] Performed By: #### 5 7021-8 #### [facility] CLIA [id number] [address] [place] [address] [place] Basophils/100 WBC (Bld) 0.5 % Normal [facility] Comment on above: Order Comment: Speci men Type: BLOOD SPECIMEN Ordering Facility: [facility] Address: [address] [place] [address] Performed By: #### 5 7021-8 #### [facility] CLIA [id number] [address] [place] [address] [place] Differential cell count method Nom (Bld) Auto Normal [facility] Comment on above: Order Comment: Speci men Type: BLOOD SPECIMEN Ordering Facility: [facility] Address: [address] [place] [address] Performed By: #### 5 7021-8 #### [facility] CLIA [id number] [address] [place] [address] [place] Eosinophils (Bld) [#/Vol] 0.10 10*3/uL Normal <0.46 [facility] Comment on above: Order Comment: Speci men Type: BLOOD SPECIMEN Ordering Facility: [facility] Address: [address] Performed By: #### 5 7021-8 #### [facility] CLIA [id number] [address] [place] [address] [place] Eosinophils/100 WBC (Bld) 2.7 % Normal [facility] Comment on above: Order Comment: Speci men Type: BLOOD SPECIMEN Ordering Facility: [facility] Address: [address] Performed By: #### 5 7021-8 #### [facility] CLIA [id number] [address] [place] [address] [place] Erythrocyte distribution width (RBC) [Ratio] 16.1 % High 11.5-15.0 [facility] Comment on above: Order Comment: Speci men Type: BLOOD SPECIMEN Ordering Facility: [facility] Address: [address] Performed By: #### 5 7021-8 #### [facility] CLIA [id number] [address] [place] [address] [place] Hematocrit (Bld) [Volume fraction] 36.6 % Normal 36.0-46.0 [facility] Comment on above: Order Comment: Speci men Type: BLOOD SPECIMEN Ordering Facility: [facility] Address: [address] Performed By: #### 5 7021-8 #### [facility] CLIA [id number] [address] [place] [address] [place] Hemoglobin (Bld) [Mass/Vol] 10.6 g/dL Low 11.5-15.5 [facility] Comment on above: Order Comment: Speci men Type: BLOOD SPECIMEN Ordering Facility: [facility] Address: [address] Performed By: #### 5 7021-8 #### [facility] CLIA [id number] [address] [place] [address] [place] Immature granulocytes (Bld) [#/Vol] 10*3/uL Normal <0.10 [facility] Comment on above: Order Comment: Speci men Type: BLOOD SPECIMEN Ordering Facility: [facility] Address: [address] [address] Performed By: #### 5 7021-8 #### [facility] CLIA [id number] [address] [place] [address] [place] Immature granulocytes/100 WBC (Bld) 0.3 % Normal [facility] Comment on above: Order Comment: Speci men Type: BLOOD SPECIMEN Ordering Facility: [facility] Address: [address] [place] [address] Performed By: #### 5 7021-8 #### [facility] CLIA [id number] [facility] [place] [address] [place] Lymphocytes (Bld) [#/Vol] 1.15 10*3/uL Normal 1.00-4.00 [facility] Comment on above: Order Comment: Speci men Type: BLOOD SPECIMEN Ordering Facility: [facility] Address: [address] [place], [place] [address] Performed By: #### 5 7021-8 #### [facility] CLIA [id number] [facility] [place] [address] [place] Lymphocytes/100 WBC (Bld) 30.9 % Normal [facility] Comment on above: Order Comment: Speci men Type: BLOOD SPECIMEN Ordering Facility: [facility] Address: [address] [place], [place] [address] Performed By: #### 5 7021-8 #### [facility] CLIA [id number] [address] [place] [address] [place] MCH (RBC) [Entitic mass] 23.0 pg Low 26.0-34.0 [facility] Comment on above: Order Comment: Speci men Type: BLOOD SPECIMEN Ordering Facility: [facility] Address: [address] Performed By: #### 5 7021-8 #### [facility] CLIA [id number] [address] [place] [address] [place] MCHC (RBC) [Mass/Vol] 29.0 g/dL Low 30.5-36.0 [facility] Comment on above: Order Comment: Speci men Type: BLOOD SPECIMEN Ordering Facility: [facility] Address: [address] Performed By: #### 5 7021-8 #### [facility] CLIA [id number] [address] [place] [address] [place] MCV (RBC) [Entitic vol] 79.6 fL Low 80.0-100.0 [facility] Comment on above: Order Comment: Speci men Type: BLOOD SPECIMEN Ordering Facility: [facility] Address: [address] Performed By: #### 5 7021-8 #### [facility] CLIA [id number] [address] [place] [address] [place] Monocytes (Bld) [#/Vol] 0.31 10*3/uL Normal <0.87 [facility] Comment on above: Order Comment: Speci men Type: BLOOD SPECIMEN Ordering Facility: [facility] Address: [address] Performed By: #### 5 7021-8 #### [facility] CLIA [id number] [address] [place] [address] [place] Monocytes/100 WBC (Bld) 8.3 % Normal [facility] Comment on above: Order Comment: Speci men Type: BLOOD SPECIMEN Ordering Facility: [facility] Address: [address] Performed By: #### 5 7021-8 #### [facility] CLIA [id number] [address] [place] [address] [place] Neutrophils (Bld) [#/Vol] 2.13 10*3/uL Normal 1.45-7.50 [facility] Comment on above: Order Comment: Speci men Type: BLOOD SPECIMEN Ordering Facility: [facility] Address: [address] Performed By: #### 5 7021-8 #### [facility] CLIA [id number] [address] [place] [address] [place] Neutrophils/100 WBC (Bld) 57.3 % Normal [facility] Comment on above: Order Comment: Speci men Type: BLOOD SPECIMEN Ordering Facility: [facility] Address: [address] [place], [place] [address] Performed By: #### 5 7021-8 #### [facility] CLIA [id number] [address] [place] [address] [place] Nucleated RBC (Bld) [#/Vol] 10*3/uL Normal <0.01 [facility] Comment on above: Order Comment: Speci men Type: BLOOD SPECIMEN Ordering Facility: [facility] Address: [address] [place], [place] [address] Performed By: #### 5 7021-8 #### [facility] CLIA [id number] [address] [place] [address] [place] Nucleated RBC/100 WBC (Bld) [Ratio] 0.0 /100 WBC Normal [facility] Comment on above: Order Comment: Speci men Type: BLOOD SPECIMEN Ordering Facility: [facility] Address: [address] [place], [place] [address] Performed By: #### 5 7021-8 #### [facility] CLIA [id number] [address] [place] [address] [place] Platelet mean volume (Bld) [Entitic vol] 9.6 fL Normal 9.0-12.7 [facility] Comment on above: Order Comment: Speci men Type: BLOOD SPECIMEN Ordering Facility: [facility] Address: [address] [place], [place] [address] Performed By: #### 5 7021-8 #### [facility] CLIA [id number] [address] [place] [address] [place] Platelets (Bld) [#/Vol] 290 10*3/uL Normal 150-400 [facility] Comment on above: Order Comment: Speci men Type: BLOOD SPECIMEN Ordering Facility: [facility] Address: [address] [place], [place] [address] Performed By: #### 5 7021-8 #### [facility] CLIA [id number] [address] [place] [address] [place] RBC (Bld) [#/Vol] 4.60 10*6/uL Normal 3.90-5.20 [facility] Comment on above: Order Comment: Speci men Type: BLOOD SPECIMEN Ordering Facility: [facility] Address: [address] [place], [place] [address] Performed By: #### 5 7021-8 #### [facility] CLIA [id number] [address] [place] [address] [place] WBC (Bld) [#/Vol] 3.72 10*3/uL Normal 3.70-11.00 [facility] Comment on above: Order Comment: Speci men Type: BLOOD SPECIMEN Ordering Facility: [facility] Address: [address] [place], [place] [address] Performed By: #### 5 7021-8 #### [facility] CLIA [id number] [address] [place] [address] [place] CNOVon 02-06-2023 [facility] PAULINA MEI ([id number]) 1965 F NFR Date Time Provider Department 02/06/23 3:40 PM MARSHA MACIAS During your visit today, we recorded the following information about you: Pulse Respiration Blood pressure 76/minute 16/minute 124/82 Marsha Macias APRN.FIELD APPLICATIONS SPECIALIST 02/07/2023 2:55 PM Signed This is a [...] 12/15/2015 Polyneuropathy in other diseases classified elsewhere ([facility]) Recurrent major depression in partial remission (HCC) [...] naloxone (NARCAN) 4 mg/actuation nasal spray 1 [place] by nasal (alternating) route as directed for 1 dose. 1 spray into 1 nostril. Additional doses may be given every 2-3 minutes until (more content not included)... Normal [facility] Comprehensive metabolic 2000 panelon 02-06-2023 Albumin [Mass/Vol] 3.3 g/dL Low 3.9-4.9 [facility] Comment on above: Order Comment: Speci men Type: BLOOD SPECIMEN Ordering Facility: [facility] Address: [address] [address] Performed By: #### 5 7021-8 #### [facility] CLIA [id number] [facility] [place] [address] [place] ALP [Catalytic activity/Vol] 206 U/L High 34-123 [facility] Comment on above: Order Comment: Speci men Type: BLOOD SPECIMEN Ordering Facility: [facility] Address: [address] Performed By: #### 5 7021-8 #### [facility] CLIA [id number] [address] [place] ALT [Catalytic activity/Vol] 17 U/L Normal 7-38 [facility] Comment on above: Order Comment: Speci men Type: BLOOD SPECIMEN Ordering Facility: [facility] Address: [address] Performed By: #### 5 7021-8 #### [facility] CLIA [id number] [address] [place] [address] [place] Anion gap [Moles/Vol] 11 mmol/L Normal 9-18 [facility] Comment on above: Order Comment: Speci men Type: BLOOD SPECIMEN Ordering Facility: [facility] Address: [address] Performed By: #### 5 7021-8 #### [facility] CLIA [id number] [address] [place] [address] [place] AST [Catalytic activity/Vol] 11 U/L Low 13-35 [facility] Comment on above: Order Comment: Speci men Type: BLOOD SPECIMEN Ordering Facility: [facility] Address: [address] Performed By: #### 5 7021-8 #### [facility] CLIA [id number] [address] [place] [address] [place] Bilirubin [Mass/Vol] mg/dL Low 0.2-1.3 [facility] Comment on above: Order Comment: Speci men Type: BLOOD SPECIMEN Ordering Facility: [facility] Address: [address] Performed By: #### 5 7021-8 #### [facility] CLIA [id number] [address] [place] [address] [place] Calcium [Mass/Vol] 8.4 mg/dL Low 8.5-10.2 [facility] Comment on above: Order Comment: Speci men Type: BLOOD SPECIMEN Ordering Facility: [facility] Address: [address] Performed By: #### 5 7021-8 #### [facility] CLIA [id number] [address] [place] Chloride [Moles/Vol] 110 mmol/L High 97-105 [facility] Comment on above: Order Comment: Speci men Type: BLOOD SPECIMEN Ordering Facility: [facility] Address: [address] [place] [address] Performed By: #### 5 7021-8 #### [facility] CLIA [id number] [address] [place] [address] [place] CO2 [Moles/Vol] 20 mmol/L Low 22-30 [facility] Comment on above: Order Comment: Speci men Type: BLOOD SPECIMEN Ordering Facility: [facility] Address: [address] [place] [address] Performed By: #### 5 7021-8 #### [facility] CLIA [id number] [address] [place] Creatinine [Mass/Vol] 0.57 mg/dL Low 0.58-0.96 [facility] Comment on above: Order Comment: Speci men Type: BLOOD SPECIMEN Ordering Facility: [facility] Address: [address] [place] [address] Performed By: #### 5 7021-8 #### [facility] CLIA [id number] [facility] [address] [place] ESTIMATED GLOMERULAR FILTRATION RATE 106 mL/min/1.73m??? Normal >=60 [facility] Comment on above: Order Comment: Speci men Type: BLOOD SPECIMEN Ordering Facility: [facility] Address: [address] [place] [address] Result Comment: Rachel mated Glomerular Filtration Rate [...] GFR. Performed By: #### 5 7021-8 #### [facility] CLIA [id number] [address] [place] [address] [place] Glucose [Mass/Vol] 95 mg/dL Normal 74-99 [facility] Comment on above: Order Comment: Speci men Type: BLOOD SPECIMEN Ordering Facility: [facility] Address: [address] [place] [address] Result Comment: The [place] [employer] (ADA) provides guidance for cutoff [...] Standards of Medical Care in Diabetes 2016, [place] [employer]. Diabetes Care. 2016.39(Suppl 1). Performed By: #### 5 7021-8 #### [facility] [facility] CLIA [id number] [address] [place] [address] [place] Potassium [Moles/Vol] 4.0 mmol/L Normal 3.7-5.1 [facility] Comment on above: Order Comment: Speci men Type: BLOOD SPECIMEN Ordering Facility: [facility] Address: [address] Performed By: #### 5 7021-8 #### [facility] CLIA [id number] [address] [place] [id number] [place] Protein [Mass/Vol] 6.5 g/dL Normal 6.3-8.0 [facility] Comment on above: Order Comment: Arti men Type: BLOOD SPECIMEN Ordering Facility: [facility] Address: [address] Performed By: #### 5 7021-8 #### [facility] CLIA [id number] [address] [place] [address] [place] Sodium [Moles/Vol] 141 mmol/L Normal 136-144 [facility] Comment on above: Order Comment: Speci men Type: BLOOD SPECIMEN Ordering Facility: [facility] Address: [address] [place] [address] Performed By: #### 5 7021-8 #### [facility] CLIA [id number] [facility] [place] [address] [place] Urea nitrogen [Mass/Vol] 17 mg/dL Normal 7-21 [facility] Comment on above: Order Comment: Speci men Type: BLOOD SPECIMEN Ordering Facility: [facility] Address: [address] [place] [address] Performed By: #### 5 7021-8 #### [facility] CLIA [id number] [address] [place] [address] [place] Ferritin SerPl-mCncon 2022 Ferritin [Mass/Vol] 24.5 ng/mL Normal 14.7-205.1 [facility] Comment on above: Order Comment: Speci men Type: BLOOD SPECIMENOrdering Facility: [facility] Address: [address] [place] [address] Performed By: #### 2 132-9, 3016-3, 2276-4 ####[facility] [id number] [place] [address] [place] Iron and Iron binding capaci ty panelon 02-06-2023 Iron [Mass/Vol] 16 ug/dL Low 41-186 [facility] Comment on above: Order Comment: Speci men Type: BLOOD SPECIMEN Ordering Facility: [facility] Address: [address] [place] [address] Performed By: #### 5 7021-8 #### [facility] CLIA [id number] [address] [place] Iron binding capacity [Mass/Vol] 315 ug/dL Normal 232-386 [facility] Comment on above: Order Comment: Speci men Type: BLOOD SPECIMEN Ordering Facility: [facility] Address: [address] [place] [address] Performed By: #### 5 7021-8 #### [facility] CLIA [id number] [address] OF [facility] Iron/TIBC [Molar ratio] 5.1 % Low 15.0-57.0 [facility] Comment on above: Order Comment: Speci men Type: BLOOD SPECIMEN Ordering Facility: [facility] Address: [address] [place] [address] Performed By: #### 5 7021-8 #### [facility] CLIA [id number] [address] OF [facility] LIPID PANEL, NONFASTINGon Cholesterol [Mass/Vol] 150 mg/dL Normal <200 [facility] Comment on above: Order Comment: Speci men Type: BLOOD SPECIMEN Ordering Facility: [facility] Address: [address] [place], [place] [id number] Result Comment: <200 mg/dL, Desirable 200-239 mg/dL, Borderline high >239 mg/dL, High Performed By: #### 5 7021-8 #### [facility] CLIA [id number] [address] [place] HDL CHOLESTEROL, NF 47 mg/dL Normal >39 [facility] Comment on above: Order Comment: Speci men Type: BLOOD SPECIMEN Ordering Facility: [facility] Address: [address] [place], [place] [address] Result Comment: 40-5 9 mg/dL, Acceptable >59 mg/dL, High: Negative risk factor for coronary heart disease <40 mg/dL, Low: Positive risk factor for coronary heart disease Performed By: #### 5 7021-8 #### [facility] CLIA [id number] [address] OF [facility] LDL CHOLESTEROL, NF 88 mg/dL Normal <100 [facility] Comment on above: Order Comment: Malick hussein Type: BLOOD SPECIMEN Ordering Facility: [facility] Address: [address] [place] [address] Result Comment: <100 mg/dL, Optimal 100-129 mg/dL, Near optimal/above optimal 130-159 mg/dL, Borderline high 160-189 mg/dL, High >189 mg/dL, Very high Secondary prevention optimal LDL Cholesterol levels are recommended to be < 70 mg/dL Performed By: #### 5 7021-8 #### [facility] CLIA [id number] [address] [place] [address] LDL/HDL RATIO, NF 1.87 mg/dL Normal <2.54 [facility] Comment on above: Order Comment: Malick hussein Type: BLOOD SPECIMEN Ordering Facility: [facility] Address: [address] [place] [address] Result Comment: Refe rence: 1. National Cholesterol Education Program ATP III Guideline At-A-Glance Quick Desk Reference: National Heart, Lung, and Blood [place]. National Institutes of Health. 2001: NIH Publication No. 01-3305. 2. An International Atherosclerosis Society position paper: global recommendations for the management of dyslipidemia: executive summary, Atherosclerosis. 2014: 232(2):410-413. Performed By: #### 5 7021-8 #### [facility] CLIA [id number] [address] [place] [address] OF [facility] NON HDL CHOL, NF 103 mg/dL Normal <130 [facility] Comment on above: Order Comment: Malick hussein Type: BLOOD SPECIMEN Ordering Facility: [facility] Address: [address] [place] [address] Result Comment: <130 mg/dL, Optimal 130-159 mg/dL, Near optimal/above optimal 160-189 mg/dL, Borderline high 190-219 mg/dL, High >219 mg/dL, Very high Secondary prevention optimal non HDL Cholesterol levels are recommended to be <100 mg/dL Performed By: #### 5 7021-8 #### [facility] CLIA [id number] [address] [place] [address] [place] T CHOL/HDL RATIO NF 3.19 mg/dL Normal <5.10 [facility] Comment on above: Order Comment: Speci men Type: BLOOD SPECIMEN Ordering Facility: [facility] Address: [address] [place] [address] Performed By: #### 5 7021-8 #### [facility] CLIA [id number] [address] [place] [address] [place] TRIGLYCERIDES, NF 74 mg/dL Normal <150 [facility] Comment on above: Order Comment: Speci men Type: BLOOD SPECIMEN Ordering Facility: [facility] Address: [address] [place] [address] Result Comment: <150 mg/dL, Normal 150-199 mg/dL, Borderline high 200-499 mg/dL, High >499 mg/dL, Very high Performed By: #### 5 7021-8 #### [facility] CLIA [id number] [address] [place] [address] [place] VLDL CHOLESTEROL, NF 15 mg/dL Normal <30 [facility] Comment on above: Order Comment: Speci men Type: BLOOD SPECIMEN Ordering Facility: [facility] Address: [address] [place], [place] [address] Performed By: #### 5 7021-8 #### [facility] CLIA [id number] [address] [place] [address] [place] T4 Free SerPl-mCncon 023 Free T4 [Mass/Vol] 1.0 ng/dL Normal 0.9-1.7 [facility] Comment on above: Order Comment: Speci men Type: BLOOD SPECIMEN Ordering Facility: [facility] Address: [address] [place] [address] Performed By: #### 5 7021-8 #### [facility] CLIA [id number] [address] [place] [address] [place] TSH SerPl-aCncon 02-06-2023 TSH Qn 3.660 m[IU]/L Normal 0.270-4.200 [facility] Comment on above: Order Comment: Speci men Type: BLOOD SPECIMENOrdering Facility: [facility] Address: [address] [place] [address] Performed By: #### 2 132-9, 3016-3, 2276-4 ####[facility] [id number] [place] [address] [place] Vit B12 SerPl-mCncon 023 Cobalamin (Vitamin B12) [Mass/Vol] 269 pg/mL Normal 232-1245 [facility] Comment on above: Order Comment: Speci men Type: BLOOD SPECIMENOrdering Facility: [facility] Address: [address] [place] [address] Performed By: #### 2 132-9, 3016-3, 2276-4 ####[facility] [id number] [address] [place] Zinc SerPl-mCncon 02-06-2023 Zinc [Mass/Vol] 43 ug/dL Low 60-120 [facility] Comment on above: Order Comment: Speci men Type: BLOOD SPECIMEN Ordering Facility: [facility] Address: [address] [place] [address] Result Comment: This test was developed and its performance characteristics determined by [facility]'s Nahun JStarla [facility] Pathology and Laboratory Medicine [place] ([facility]). It has not been cleared or approved by the FDA. [facility] is regulated under CLIA as qualified to perform high-complexity testing. This test is used for clinical purposes. It should not be regarded as investigational or for research. Performed By: #### 5 7021-8 #### [facility] CLIA [id number] [address] [place], [place] [id number] [place] [facility] Wyatt 12-26-2022 CNPN Telephone (FAMPWS) SIGIFREDOPAULINA Shen ([id number]) 1965 F NFR Date Time Provider Department [...] naloxone (NARCAN) 4 mg/actuation nasal spray 1 [place] by nasal (alternating) route as directed for 1 dose. 1 spray into 1 nostril. (more content not included)... Normal [facility] Absolute lymphocyte counton 06-29-2022 Lymphocytes Auto (Unsp spec) [#/Vol] 1.85 10*3/uL 0.83-4.51 [facility] Work Phone: Basophil percentageon 2021 Basophils/100 WBC (Bld) 0.4 % 0-1 [facility] Work Phone: Chloride [Moles/Vol] 113 mmol/L 98-107 [facility] Work Phone: Eosinophils/100 WBC (Bld) 1.9 % 0-5 [facility] Work Phone: Glucose [Mass/Vol] 86 mg/dL 74-106 [facility] Work Phone: Neutrophils (Bld) [#/Vol] 3.0 10*3/uL 2.0-7.7 [facility] Work Phone: Neutrophils/100 WBC (Bld) 56.3 % 47-70 [facility] Work Phone: Potassium [Moles/Vol] 3.5 mmol/L 3.5-5.1 [facility] Work Phone: Sodium [Moles/Vol] 142 mmol/L 136-145 [facility] Work Phone: WBC (Bld) [#/Vol] 5.4 10*3/uL 4.4-11.0 [facility] Work Phone: Blood erythrocytes count (nu mber/volume)on 06-29-2022 RBC (Bld) [#/Vol] 4.16 10*6/uL 4.2-5.4 [facility] Work Phone: Blood hemoglobin measurement (mass/volume)on 06-29-2022 Hemoglobin (Bld) [Mass/Vol] 9.9 g/dL 12.0-15.0 [facility] Work Phone: Blood lymphocytes/100 leukoc yteson 06-29-2022 Lymphocytes/100 WBC (Bld) 34.5 % 19-41 [facility] Work Phone: Blood manual differential co mment interpretation (narrative result)on 06-29-2022 Manual differential comment Rolando (Bld) [Interp] SCANNED [facility] Work Phone: [phone] Blood monocytes/100 leukocyt eson 06-29-2022 Monocytes/100 WBC (Bld) 6.5 % 0-10 [facility] Work Phone: Blood platelet mean volumeon 06-29-2022 Platelet mean volume (Bld) [Entitic vol] 9.3 fL 6.2-12.0 [facility] Work Phone: Determination of erythrocyte mean corpuscular volume (MCV)on 06-29-2022 MCV (RBC) [Entitic vol] 80.8 fL 81-99 [facility] Work Phone: Hematocrit Auto (Bld) [Volum e fraction]on 06-29-2022 Hematocrit (Bld) [Volume fraction] 33.6 % 37-47 [facility] Work Phone: Laboratory - Chemistry and C hemistry - challengeon 06-29-2022 CO2 [Moles/Vol] 24.0 mmol/L 21.0-32.0 [facility] Work Phone: Urea nitrogen/Creatinine [Mass ratio] 28.3 mg/mg 10-20 [facility] Work Phone: Laboratory - Hematology and Cell countson 06-29-2022 Anisocytosis Ql (Bld) 1+ [facility] Work Phone: Erythrocyte distribution width (RBC) [Entitic vol] 64.5 fL 35.1-43.9 [facility] Work Phone: Erythrocyte distribution width (RBC) [Ratio] 22.6 % 11.6-14.6 [facility] Work Phone: Immature granulocytes/100 WBC (Bld) 0.400 % 0.0-0.9 [facility] Work Phone: Comment on above: IG% - Immature Granu locytes (promyelocytes, myelocytes and metamyelocytes) > 1% indicates that a LEFT SHIFT is Present. MCH (RBC) [Entitic mass] 23.8 pg 27.0-32.0 [facility] Work Phone: Nucleated RBC/100 WBC (Bld) [Ratio] 0 % 0-5 [facility] Work Phone: MCHC Auto (RBC) [Mass/Vol]on 06-29-2022 MCHC (RBC) [Mass/Vol] 29.5 g/dL 32-36 [facility] Work Phone: No Panel Informationon 06-29 Estimated Creatinine Clearance Calc 82.80 ml/min [facility] Work Phone: Estimated GFR (MDRD) Amer 133 mL/min >60 [facility] Work Phone: Comment on above: GFR Calc Estimated GFR (MDRD) Non-Af Amer 110 mL/min >60 [facility] Work Phone: Comment on above: Non- GFR Calc Platelets bldon 06-29-2022 Platelets (Bld) [#/Vol] 190 10*3/uL 150-450 [facility] Work Phone: Serum or plasma calcium loreto urement (mass/volume)on 06-29-2022 Calcium [Mass/Vol] 7.8 mg/dL 8.5-10.1 [facility] Work Phone: Serum or plasma creatinine m easurement (mass/volume)on 06-29-2022 Creatinine [Mass/Vol] 0.60 mg/dL 0.55-1.02 [facility] Work Phone: Comment on above: The validity of the calculated GFR & GFRAA in patients over 70 years has not been determined. Clinical correlation is essential. Serum or plasma urea nitroge n measurement (mass/volume)on 06-29-2022 Urea nitrogen [Mass/Vol] 17 mg/dL 7-18 [facility] Work Phone: Thin prep Papanicolaou smear with manual screeningon 06-29-2022 Thin prep Papanicolaou smear with manual screening 1+ [facility] Work Phone: Thin prep Papanicolaou smear with manual screening 5 5-15 [facility] Work Phone: Absolute lymphocyte counton 06-14-2022 Lymphocytes Auto (Unsp spec) [#/Vol] 1.22 10*3/uL 0.83-4.51 [facility] Work Phone: Basophil percentageon 2021 Basophils/100 WBC (Bld) 0.4 % 0-1 [facility] Work Phone: [phone] Chloride [Moles/Vol] 115 mmol/L 98-107 [facility] Work Phone: Eosinophils/100 WBC (Bld) 0.0 % 0-5 [facility] Work Phone: [phone] Glucose [Mass/Vol] 108 mg/dL 74-106 [facility] Work Phone: [phone] Comment on above: Fasting Glucose resu lt from 100 to 125 mg/dL suggests IMPAIRED HOMEOSTASIS per A.D.A. criteria. Neutrophils (Bld) [#/Vol] 3.2 10*3/uL 2.0-7.7 [facility] Work Phone: Neutrophils/100 WBC (Bld) 68.1 % 47-70 [facility] Work Phone: Potassium [Moles/Vol] 3.6 mmol/L 3.5-5.1 [facility] Work Phone: Sodium [Moles/Vol] 143 mmol/L 136-145 [facility] Work Phone: WBC (Bld) [#/Vol] 4.7 10*3/uL 4.4-11.0 [facility] Work Phone: Blood erythrocytes count (nu mber/volume)on 06-14-2022 RBC (Bld) [#/Vol] 4.97 10*6/uL 4.2-5.4 [facility] Work Phone: Blood hemoglobin measurement (mass/volume)on 06-14-2022 Hemoglobin (Bld) [Mass/Vol] 10.9 g/dL 12.0-15.0 [facility] Work Phone: Blood lymphocytes/100 leukoc yteson 06-14-2022 Lymphocytes/100 WBC (Bld) 25.8 % 19-41 [facility] Work Phone: Blood monocytes/100 leukocyt eson 06-14-2022 Monocytes/100 WBC (Bld) 5.3 % 0-10 [facility] Work Phone: Blood platelet mean volumeon 06-14-2022 Platelet mean volume (Bld) [Entitic vol] 10.4 fL 6.2-12.0 [facility] Work Phone: Determination of erythrocyte mean corpuscular volume (MCV)on 06-14-2022 MCV (RBC) [Entitic vol] 76.7 fL 81-99 [facility] Work Phone: Erythrocyte sedimentation ra naomie 06-14-2022 ESR (Bld) [Velocity] 13 mm/h 0-30 [facility] Work Phone: Hematocrit Auto (Bld) [Volum e fraction]on 06-14-2022 Hematocrit (Bld) [Volume fraction] 38.1 % 37-47 [facility] Work Phone: Iron measurement (mass/mass) on 06-14-2022 Iron (Unsp spec) [Mass/Mass] 15 ug/dL 50-170 [facility] Work Phone: Laboratory - Chemistry and C hemistry - challengeon 06-14-2022 Cobalamin (Vitamin B12) [Mass/Vol] 163 pg/mL 211-911 [facility] Work Phone: CO2 [Moles/Vol] 23.0 mmol/L 21.0-32.0 [facility] Work Phone: Magnesium [Mass/Vol] 2.5 mg/dL 1.6-2.6 [facility] Work Phone: Urea nitrogen/Creatinine [Mass ratio] 32.5 mg/mg 10-20 [facility] Work Phone: Laboratory - Hematology and Cell countson 06-14-2022 Erythrocyte distribution width (RBC) [Entitic vol] 47.9 fL 35.1-43.9 [facility] Work Phone: Erythrocyte distribution width (RBC) [Ratio] 17.3 % 11.6-14.6 [facility] Work Phone: Immature granulocytes/100 WBC (Bld) 0.400 % 0.0-0.9 [facility] Work Phone: Comment on above: IG% - Immature Granu locytes (promyelocytes, myelocytes and metamyelocytes) > 1% indicates that a LEFT SHIFT is Present. MCH (RBC) [Entitic mass] 21.9 pg 27.0-32.0 [facility] Work Phone: Nucleated RBC/100 WBC (Bld) [Ratio] 0 % 0-5 [facility] Work Phone: MCHC Auto (RBC) [Mass/Vol]on 06-14-2022 MCHC (RBC) [Mass/Vol] 28.6 g/dL 32-36 [facility] Work Phone: No Panel Informationon 06-14 Total Iron Binding Capacity 396 ug/dL 250-450 [facility] Work Phone: Estimated Creatinine Clearance Calc 80.13 ml/min [facility] Work Phone: Estimated GFR (MDRD) Amer 129 mL/min >60 [facility] Work Phone: Comment on above: GFR Calc Estimated GFR (MDRD) Non-Af Amer 106 mL/min >60 [facility] Work Phone: Comment on above: Non- GFR Calc Ionized Calcium 4.9 mg/dL 4.5-5.6 [facility] Work Phone: Comment on above: Performed at: [address] [id number] Director: Rogelio Flanagan PhD, Phone: [phone] Thyroid Stimulating Hormone (TSH) 2.01 uIU/mL 0.358-3.74 [facility] Work Phone: Platelets bldon 10-13-2022 Platelets (Bld) [#/Vol] 269 10*3/uL 150-450 [facility] Work Phone: Serum or plasma C reactive p rotein measurement (mass/volume)on 06-14-2022 CRP [Mass/Vol] mg/L 0.0-3.0 [facility] Work Phone: Comment on above: C-Reactive Protein ( CRP) provides useful information for thediagnosis, therapy and monitoring of inflammatory processesand associated diseases. For the evaluation of Relative Riskfor Cardiovascular Disease, a High Sensitivity CRP (HSCRP)should be ordered. Serum or plasma calcium loreto urement (mass/volume)on 06-14-2022 Calcium [Mass/Vol] 8.0 mg/dL 8.5-10.1 [facility] Work Phone: Serum or plasma creatinine m easurement (mass/volume)on 06-14-2022 Creatinine [Mass/Vol] 0.62 mg/dL 0.55-1.02 [facility] Work Phone: Comment on above: The validity of the calculated GFR & GFRAA in patients over 70 years has not been determined. Clinical correlation is essential. Serum or plasma ferritin estella surement (mass/volume)on 06-14-2022 Ferritin [Mass/Vol] 4 ng/mL 8-252 [facility] Work Phone: Serum or plasma folate measu rement (mass/volume)on 06-14-2022 Folate [Mass/Vol] 6.40 ng/mL 3.1-55.4 [facility] Work Phone: Serum or plasma iron saturat ion measurement (mass fraction)on 06-14-2022 Iron saturation [Mass fraction] 3.8 % 15.0-55.0 [facility] Work Phone: Serum or plasma urea nitroge n measurement (mass/volume)on 06-14-2022 Urea nitrogen [Mass/Vol] 20 mg/dL 7-18 [facility] Work Phone: Thin prep Papanicolaou smear with manual screeningon 06-14-2022 Thin prep Papanicolaou smear with manual screening 5 5-15 [facility] Work Phone: CNPAnita 03-15-2022 EMILY Telephone (AGSPHWG) SIGIFREDOPAULINA ([id number]) 1965 F NFR Date Time Provider Department [...] new letter completed. Thank You, Eunice Olivarez, BOBJ DEVELOPER.FIELD APPLICATIONS SPECIALIST Allergies As of Date: 03/15/2022 Noted Allergy [...] naloxone (NARCAN) 4 mg/actuation nasal spray 1 [place] by nasal (alternating) route as directed for [...] 10/14/2014 Hype (more content not included)... Normal [facility] UA DIP, URINE (POC)on 2021 BILIRUBIN UA (POCT) Negative Negative [facility] CLARITY UA (POCT) Slightly Cloudy Cl [facility] COLOR UA (POCT) Other [facility] GLUCOSE UA (POCT) Negative Negative mg/dL [facility] HEMOGLOBIN/BLOOD UA (POCT) Trace-intact Abnormal Negative [facility] KETONE UA (POCT) Negative Negative mg/dL [facility] LEUKOCYTES UA (POCT) Negative Negative [facility] NITRITE UA (POCT) Negative Negative [facility] PH UA (POCT) 5.5 4.5 - 8.0 [facility] Protein Ql (U) Negative Negative mg/dL [facility] SPECIFIC GRAVITY UA (POCT) >=1.030 1.005 - 1.030 [facility] UROBILINOGEN UA (POCT) 0.2 E.U./dL Normal E.U./dL [facility] CNOVon 03-01-2022 CNOV Office Visit (SPAGWO ) PAULINA MEI ([id number]) 1965 F NFR Date Time Provider Department 03/01/22 10:45 AM EUNICE OLIVAREZ During your visit today, we recorded the following information about you: Pulse Respiration Normal [facility] Wyatt 02-01-2022 CNPN Telephone (AGSPINE3) PAULINA MEI ([id number]) 1965 F NFR Date Time Provider Department [...] multiple sites, unspecified whether rheumatoid factor present ([facility]) [M06.9] longterm prescription opiate use [Z79.891] Rheumatoid arthritis involving both hands with positive rheumatoid factor ([facility]) [M05.741, M05.742] Order(s):[START ON 02/10/2022] oxyCODONE-acetaminophe n [...] naloxone (NARCAN) 4 mg/actuation nasal spray 1 [place] by nasal (alternating) route as directed for [...] 10/10/2009 Iron (more content not included)... Normal [facility] XR Knee - right 4 Viewson IMPRESSION: Osteoarthrosis and osteopenia. Emergency Room Nurse: HERMES Transcribe Date/Time: Dec 26 2021 2:12P [...] identified. [id number] E_DIVISION OF RADIOLOGY Provider, Rosana Rossi - 12/26/2021 * * *Final Report* * [...] abnormality identified. IMPRESSION IMPRESSION: Osteoarthrosis and osteopenia. Emergency Room Nurse: PSCB Transcribe Date/Time: Dec 26 2021 2:12P Dictated by : DESIRAE OSPINA MD This examination was interpreted and the report reviewed and electronically signed by: DESIRAE OSPINA MD on Dec 26 2021 2:14PM EST [facility] Radiology Study observation (narrative) [facility] XR Knee - right 4 ViewsOrder ed By: Ccf Provider on 12-26-2021 [facility] DXA-AXIAL SKELETONon 022 [facility] CNOVon 11-23-2021 CNOV Office Visit (SPAGWO ) PAULINA MEI ([id number]) 1965 F NFR Date Time Provider Department 3/24/22 1:45 PM FAYE BELTRAN During your visit today, we recorded the following information about you: Faye Beltran MD 11/23/2021 2:29 PM Signed [facility] Name: Paulina Mei : 1965 Purpose: Follow-Up [...] steroids. She has not reestablished with a Street Photographer. Bone density scan was ordered, not obtained. [...] of rheumatoid arthritis. She is followed with [facility] rheumatology in the past last being [...] She is currently not following with any director of professional services. She reports she is on daily steroids [...] day. We discussed a possible rotation to [place] in the future. However I had like [...] Adequate analgesia? (more content not included)... Normal [facility] CNPNon 11-23-2021 CNPN Telephone (SPAGWO) PAULINA MEI ([id number]) 1965 F NFR Date Time Provider Department 11/23/21 FAYE BELTRAN SPAGWO During your visit today, we recorded the following information about you: Fili Schilling 11/23/2021 2:50 PM Signed Sent in consult to Rheumatology, the confirmation number is [id number]. Allergies As of Date: 11/23/2021 Noted Allergy [...] naloxone (NARCAN) 4 mg/actuation nasal spray 1 [place] by nasal (alternating) route as directed for [...] 02/09/2016 Diabete (more content not included)... Normal [facility] CNPAnita 11-10-2021 CNPN Telephone (AGSPINE3) SIGIFREDOPAULINA ([id number]) 1965 F NFR Date Time Provider Department [...] Fully Assessed Reason for Visit: Patient Question [4447] Prescriptions as of 11/13/2021 - oxyCODONE-acetaminophe n [...] naloxone (NARCAN) 4 mg/actuation nasal spray 1 [place] by nasal (alternating) route as directed for [...] 08/14/2017 Co (more content not included)... 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 Normal [facility] Wyatt 10-13-2021 EMILY Telephone (AGSPINE3) PAULINA MEI ([id number]) 1965 F NFR Date Time Provider Department [...] naloxone (NARCAN) 4 mg/actuation nasal spray 1 [place] by nasal (alternating) route as directed for [...] unspecified [K59.0 (more content not included)... Normal [facility] CNPAnita 10-10-2021 CNPN Telephone (AGSPINE1) PAULINA MEI ([id number]) 1965 F NFR Date Time Provider Department [...] Signed Cymbalta resent to pharmacy ([facility] on [address] in [place]). 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 Normal [facility] Wyatt 08-11-2021 PRESLEYN Telephone (AGSPINE3) PAULINA MEI ([id number]) 1965 F NFR Date Time Provider Department 08/11/21 FAYE BELTRAN AGSPINE3 During your visit today, we recorded the following information about you: Radha Mercado 08/11/2021 9:31 AM Signed LVM for patient to schedule [address] Beltran in [place]. Patient had a virtual visit with Dr. [...] naloxone (NARCAN) 4 mg/actuation nasal spray 1 [place] by nasal (alternating) route as directed for [...] 09/29/2015 Mor (more content not included)... Normal [facility] CNPNon 08-02-2021 CNPN Telephone (AGSPINE3) PAULINA MEI ([id number]) 1965 F NFR Date Time Provider Department 08/02/21 FAYE BELTRAN [facility] During your visit today, we recorded the [...] She would like to talk to the MANAGER GENERAL about the change in her medications since [...] last her until her appointment. Salbador Barrios APRN.PRESLEY 08/07/2021 6:43 PM Signed As I explained [...] well at this OV. Thanks Jere Puentes APRN.FIELD APPLICATIONS SPECIALIST Allergies As of Date: 08/02/2021 Noted Allergy [...] Date Reviewed: 06/22/2021 Reviewed by: Jere Puentes APRN.FIELD APPLICATIONS SPECIALIST - Fully Assessed Reason for Visit: Returning [...] naloxone (NARCAN) 4 mg/actuation nasal spray 1 [place] by nasal (alternating) route as directed for [...] 1 mg t (more content not included)... [facility] CNOVon 06-22-2021 JOHNNIE Office Visit (SPAGWO ) PAULINA MEI ([id number]) 1965 F NFR Date Time Provider Department 06/22/21 3:00 PM JERE PUENTES During your visit today, we recorded the following information about you: Pulse Respiration [facility] CNCOon 04-06-2021 CNCO Letter Text [facility] CNPNon 03-30-2021 CNPN Telephone (LAURAGWO) PAULINA MEI ([id number]) 1965 F NFR Date Time Provider Department [...] to schedule a new patient appointment in [place] with . Terra Gorman Allergies As of [...] less than (more content not included)... Normal [facility] XR Shoulder - right 3 Viewso n 03-27-2021 IMPRESSION: Findings are suggestive of degenerative changes of the right shoulder. Emergency Room Nurse: HERMES Transcribe Date/Time: Mar 27 2021 6:37P Dictated by : WEI SCHOFIELD MD This examination was interpreted and the report reviewed and electronically signed by: WEI SCHOFIELD MD on Mar 27 2021 6:39PM [facility] DIVISION OF RADIOLOGY * * *Final Report* [...] swelling or calcification. DIVISION OF RADIOLOGY Provider, [facility] - 03/27/2021 * * *Final [...] of degenerative changes of the right shoulder. Emergency Room Nurse: PSCB Transcribe Date/Time: Mar 27 2021 6:37P Dictated by : WEI SCHOFIELD MD This examination was interpreted and the report reviewed and electronically signed by: WEI SCHOFIELD MD on Mar 27 2021 6:39PM EST [facility] Radiology Study observation (narrative) [facility] XR Shoulder - right 3 ViewsO rdered By: [facility]cf Provider on 03-27-2021 [facility] COVID-19 virus antigen assay SARS-CoV-2 (COVID-19) Ag IA.rapid Ql (Resp) [facility] Work Phone: Vital Signs Date Time Vital Sign Value Performing Clinician Facility 11-24-2023 10:45-0400 Body temperature 97.59 [degF] Erna Kelley APRN.[employer] APPLICATIONS SPECIALIST Work Phone: [facility] 11-24-2023 10:45-0400 Body weight 77.6 kg Erna Kelley APRN.FIELD APPLICATIONS SPECIALIST Work Phone: [facility] 11-24-2023 10:45-0400 Diastolic blood pressure 84 mm[Hg] Erna Kelley APRN.FIELD APPLICATIONS SPECIALIST Work Phone: [facility] 11-24-2023 10:45-0400 Heart rate 96 /min Erna Kelley APRN.FIELD APPLICATIONS SPECIALIST Work Phone: [facility] 11-24-2023 10:45-0400 Respiratory rate 18 /min Erna Kelley APRN.FIELD APPLICATIONS SPECIALIST Work Phone: [facility] 11-24-2023 10:45-0400 SaO2% (BldA) [Mass fraction] 99 % Erna Kelley APRN.FIELD APPLICATIONS SPECIALIST Work Phone: [facility] 11-24-2023 10:45-0400 Systolic blood pressure 125 mm[Hg] Erna Kelley APRN.FIELD APPLICATIONS SPECIALIST Work Phone: [facility] 02-06-2023 15:50-0400 Diastolic blood pressure 82 mm[Hg] Marsha Haagen BOBJ DEVELOPER.FIELD APPLICATIONS SPECIALIST Work Phone: [facility] 02-06-2023 15:50-0400 Heart rate 76 /min Marsha Haagen BOBJ DEVELOPER.FIELD APPLICATIONS SPECIALIST Work Phone: [facility] 02-06-2023 15:50-0400 Respiratory rate 16 /min Marsha Haagen BOBJ DEVELOPER.FIELD APPLICATIONS SPECIALIST Work Phone: [facility] 02-06-2023 15:50-0400 Systolic blood pressure 124 mm[Hg] Marsha Haagen BOBJ DEVELOPER.FIELD APPLICATIONS SPECIALIST Work Phone: [facility] 08-04-2022 09:47-0500 Respiratory rate 16 /min PA NA Wolff PA Work Phone: [facility] Work Phone: 08-04-2022 07:57-0500 Body height 157.48 cm PA NA Wolff PA Work Phone: [facility] Work Phone: 08-04-2022 07:57-0500 Body mass index (BMI) [Ratio] 32.9 kg/m2 PA NA Wolff PA Work Phone: [facility] Work Phone: 08-04-2022 07:57-0500 Body temperature 97.6 [degF] PA NA Wolff PA Work Phone: [facility] Work Phone: 08-04-2022 07:57-0500 Body weight 81.64 kg PA NA Wolff PA Work Phone: [facility] Work Phone: 08-04-2022 07:57-0500 Diastolic blood pressure 87 mm[Hg] PA NA Wolff PA Work Phone: [facility] Work Phone: 08-04-2022 07:57-0500 Heart rate 91 /min PA NA Wolff PA Work Phone: [facility] Work Phone: 08-04-2022 07:57-0500 SaO2% (BldA) [Mass fraction] 100 % PA NA Wolff PA Work Phone: [facility] Work Phone: 08-04-2022 07:57-0500 Systolic blood pressure 141 mm[Hg] PA NA Wolff PA Work Phone: [facility] Work Phone: 07-03-2022 14:19-0400 Diastolic blood pressure 56 mm[Hg] NA Wolff PA-C Work Phone: [facility] 07-03-2022 14:19-0400 Heart rate 54 /min NA Wolff PA-C Work Phone: [facility] 07-03-2022 14:19-0400 Respiratory rate 16 /min NA Wolff PA-C Work Phone: [facility] 07-03-2022 14:19-0400 SaO2% (BldA) [Mass fraction] 98 % NA Wolff PA-C Work Phone: [facility] 07-03-2022 14:19-0400 Systolic blood pressure 100 mm[Hg] NA Wolff PA-C Work Phone: [facility] 06-30-2022 11:26-0400 Body temperature 97.9 [degF] PA NA Wolff PA Work Phone: [facility] Work Phone: 06-30-2022 11:26-0400 Diastolic blood pressure 56 mm[Hg] PA NA Wolff PA Work Phone: [facility] Work Phone: 06-30-2022 11:26-0400 Heart rate 68 /min PA NA Wolff PA Work Phone: [facility] Work Phone: 06-30-2022 11:26-0400 Respiratory rate 16 /min PA NA Wolff PA Work Phone: [facility] Work Phone: 06-30-2022 11:26-0400 SaO2% (BldA) [Mass fraction] 94 % PA NA Wolff PA Work Phone: [facility] Work Phone: 06-30-2022 11:26-0400 Systolic blood pressure 98 mm[Hg] PA NA Wolff PA Work Phone: [facility] Work Phone: 06-27-2022 15:27-0400 Body height 157.48 cm PA NA Wolff PA Work Phone: [facility] Work Phone: 06-27-2022 15:27-0400 Body weight 81.6 kg PA NA Wolff PA Work Phone: [facility] Work Phone: 06-14-2022 16:53-0400 Body mass index (BMI) [Ratio] 32.1 kg/m2 PA NA Wolff PA Work Phone: [facility] Work Phone: 06-14-2022 14:27-0400 Body temperature 97.2 [degF] PA NA Wolff PA Work Phone: [facility] Work Phone: 06-14-2022 14:27-0400 Diastolic blood pressure 90 mm[Hg] PA NA Wolff PA Work Phone: [facility] Work Phone: 06-14-2022 14:27-0400 Heart rate 69 /min PA NA Wolff PA Work Phone: [facility] Work Phone: 06-14-2022 14:27-0400 Respiratory rate 16 /min PA NA Wolff PA Work Phone: [facility] Work Phone: 06-14-2022 14:27-0400 SaO2% (BldA) [Mass fraction] 100 % PA NA Wolff PA Work Phone: [facility] Work Phone: 06-14-2022 14:27-0400 Systolic blood pressure 124 mm[Hg] PA NA Wolff PA Work Phone: [facility] Work Phone: 06-14-2022 10:09-0400 Body height 157.48 cm PA NA Wolff PA Work Phone: [facility] Work Phone: 06-14-2022 10:09-0400 Body weight 80.1 kg PA NA Wolff PA Work Phone: [facility] Work Phone: 06-14-2022 04:46-0400 Body mass index (BMI) [Ratio] 32.3 kg/m2 RICHELLE PEOPLES Work Phone: [facility] Work Phone: 03-04-2022 13:24-0400 Body temperature 97.7 [degF] Erna Kelley APRN.FIELD APPLICATIONS SPECIALIST Work Phone: [facility] 03-04-2022 13:24-0400 Body weight 79.11 kg Erna Kelley APRN.FIELD APPLICATIONS SPECIALIST Work Phone: [facility] 03-04-2022 13:24-0400 Diastolic blood pressure 74 mm[Hg] Erna Kelley APRN.FIELD APPLICATIONS SPECIALIST Work Phone: [facility] 03-04-2022 13:24-0400 Heart rate 90 /min Erna Kelley APRN.FIELD APPLICATIONS SPECIALIST Work Phone: [facility] 03-04-2022 13:24-0400 Respiratory rate 21 /min Erna Kelley APRN.FIELD APPLICATIONS SPECIALIST Work Phone: [facility] 03-04-2022 13:24-0400 SaO2% (BldA) [Mass fraction] 95 % Erna Kelley APRN.FIELD APPLICATIONS SPECIALIST Work Phone: [facility] 03-04-2022 13:24-0400 Systolic blood pressure 120 mm[Hg] Erna Kelley APRN.FIELD APPLICATIONS SPECIALIST Work Phone: [facility] 03-02-2022 18:23-0400 Body temperature 97.81 [degF] Erna Kelley APRN.FIELD APPLICATIONS SPECIALIST Work Phone: [facility] 03-02-2022 18:23-0400 Body weight 79.74 kg Erna Kelley APRN.FIELD APPLICATIONS SPECIALIST Work Phone: [facility] 03-02-2022 18:23-0400 Diastolic blood pressure 70 mm[Hg] Erna Kelley APRN.FIELD APPLICATIONS SPECIALIST Work Phone: [facility] 03-02-2022 18:23-0400 Heart rate 76 /min Erna Kelley APRN.FIELD APPLICATIONS SPECIALIST Work Phone: [facility] 03-02-2022 18:23-0400 Respiratory rate 16 /min Erna Kelley APRN.FIELD APPLICATIONS SPECIALIST Work Phone: [facility] 03-02-2022 18:23-0400 SaO2% (BldA) [Mass fraction] 96 % Erna Kelley APRN.FIELD APPLICATIONS SPECIALIST Work Phone: [facility] 03-02-2022 18:23-0400 Systolic blood pressure 120 mm[Hg] Erna Kelley APRN.FIELD APPLICATIONS SPECIALIST Work Phone: [facility] 12-26-2021 13:10-0400 Diastolic blood pressure 84 mm[Hg] NA Wolff PA-C Work Phone: [facility] 12-26-2021 13:10-0400 Heart rate 96 /min NA Wolff PA-C Work Phone: [facility] 12-26-2021 13:10-0400 Respiratory rate 18 /min NA Wolff PA-C Work Phone: [facility] 12-26-2021 13:10-0400 SaO2% (BldA) [Mass fraction] 97 % NA Wolff PA-C Work Phone: [facility] 12-26-2021 13:10-0400 Systolic blood pressure 122 mm[Hg] NA Wolff PA-C Work Phone: [facility] 12-23-2021 13:06-0400 Body temperature 99 [degF] Erna Kelley APRN.FIELD APPLICATIONS SPECIALIST Work Phone: [facility] 12-23-2021 13:06-0400 Diastolic blood pressure 82 mm[Hg] Erna Kelley APRN.FIELD APPLICATIONS SPECIALIST Work Phone: [facility] 12-23-2021 13:06-0400 Heart rate 82 /min Erna Kelley APRN.FIELD APPLICATIONS SPECIALIST Work Phone: [facility] 12-23-2021 13:06-0400 Respiratory rate 16 /min Erna Kelley APRN.FIELD APPLICATIONS SPECIALIST Work Phone: [facility] 12-23-2021 13:06-0400 SaO2% (BldA) [Mass fraction] 97 % Erna Kelley APRN.FIELD APPLICATIONS SPECIALIST Work Phone: [facility] 12-23-2021 13:06-0400 Systolic blood pressure 132 mm[Hg] Erna Kelley APRN.FIELD APPLICATIONS SPECIALIST Work Phone: [facility] Encounters Encounter Date Encounter Type Care Provider Facility Start: 02-11-2025 End: 02-11-2025 ambulatory [facility] MANAGER GENERAL-C Work Phone: [facility] Work Phone: Start: 02-11-2025 End: 02-11-[address] Efren Lynn MD -Radiology [facility] Work Phone: Start: 02-11-2025 End: 02-11-2025 ambulatory [facility] Facility:[facility] Start: 04-27-2024 End: 04-27-2024 ambulatory [facility] Facility:[facility] Start: 11-24-2023 End: 11-24-2023 ambulatory [facility] Facility:[facility] Start: 11-24-2023 End: 11-24-2023 Patient encounter procedure Erna Kelley APRN.FIELD APPLICATIONS SPECIALIST Work Phone: [place] [facility] Comment on above: Nausea (Primary Dx); URI, acute Start: 08-05-2023 ambulatory Shakira Mattson [facility] [place] Comment on above: Population Health Na vigation Outreach ([facility]) Start: 07-27-2023 Refill M Mary Simms on PA-C Work Phone: [facility] [place] Comment on above: Refill Request Start: 07-23-2023 Telephone encounter Marsha esquivel APRN.FIELD APPLICATIONS SPECIALIST Work Phone: [facility] [place] Comment on above: Medication Request Start: 07-05-2023 Telephone encounter Marsha esquivel APRN.FIELD APPLICATIONS SPECIALIST Work Phone: [facility] [place] Comment on above: Results Start: 07-04-2023 End: 07-04-2023 ambulatory Jocelyn WOLFF Facility:[facility] Start: 07-04-2023 End: 07-04-2023 Subsequent hospital visit by physician Mri Radio [facility] (I-Stat/1.5t) Work Phone: Radiology Comment on above: Confusion [R41.0] Start: 06-14-2023 Telephone encounter Marsha esquivel APRN.FIELD APPLICATIONS SPECIALIST Work Phone: [facility] [place] Comment on above: Medication Request Start: 06-12-2023 Refill Marsha Macias APRN.FIELD APPLICATIONS SPECIALIST Work Phone: [facility] [place] Comment on above: Refill Request Start: 06-06-2023 Telephone encounter Marsha esquivel APRN.FIELD APPLICATIONS SPECIALIST Work Phone: [facility] [place] Comment on above: Results Start: 06-04-2023 End: 06-05-2023 ambulatory Jocelyn WOLFF Facility:[facility] Start: 06-04-2023 End: 06-05-2023 ambulatory Jocelyn WOLFF Facility:[facility] Start: 04-11-2023 Refill Jocelyn Simms on PA-C Work Phone: [facility] [place] Start: 04-10-2023 ambulatory Jocelyn Simms on PA-C Work Phone: [facility] [place] Start: 03-12-2023 Telephone encounter Other (His t) Work Phone: Orthopaedics Comment on above: Appointment Start: 03-01-2023 Telephone encounter Marsha esquivel APRN.FIELD APPLICATIONS SPECIALIST Work Phone: [facility] Medicine [place] Comment on above: Results Start: 02-24-2023 Telephone encounter Marsha esquivel APRN.FIELD APPLICATIONS SPECIALIST Work Phone: [facility] [place] Comment on above: Results Start: 02-19-2023 End: 02-19-2023 ambulatory Jocelyn WOLFF Facility:[facility] Start: 02-19-2023 End: 02-19-2023 Subsequent hospital visit by physician Xr [facility] [place] Work Phone: Radiology Comment on above: Acute pain of both k nees [M25.561, M25.562] Start: 02-13-2023 Telephone encounter Jocelyn Wolff PA-C Work Phone: [facility] [place] Comment on above: Refill Request Start: 02-06-2023 End: 02-07-2023 ambulatory MARSHA MACIAS Facility:[facility] Start: 02-06-2023 End: 02-07-2023 ambulatory Jocelyn WOLFF Facility:[facility] Start: 02-06-2023 End: 02-06-2023 Office outpatient visit 25 minutes Marsha Macias BOBJ DEVELOPER.FIELD APPLICATIONS SPECIALIST Work Phone: [facility] [place] Comment on above: Acute pain of both k nees (Primary Dx); Hypokalemia; Hypothyroidism, unspecified type; Hyperlipidemia with target LDL less than 100; Vitamin B 12 deficiency; Iron deficiency anemia, unspecified iron deficiency anemia type; History of gastric bypass; Disorder of bone, unspecified Start: 12-26-2022 End: 12-26-2022 ambulatory Nurse Intm/Famp Triage [facility] Work Phone: Nurse Phone Triage Comment on above: Vomiting Start: 12-26-2022 Telephone encounter Jocelyn Wolff PA-C Work Phone: [facility] [place] Comment on above: requesting medicatio n Start: 11-28-2022 ambulatory Shakira Mattson [facility] [place] Comment on above: Population Health Na vigation Outreach ([facility]) Start: 11-14-2022 Telephone encounter Jocelyn Wolff PA-C Work Phone: [facility] [place] Comment on above: Medication issue Pain management repl y. Start: 11-10-2022 Refill Jocelyn Simms on PA-C Work Phone: [facility] [place] Comment on above: Refill Request Start: 11-08-2022 Telephone encounter [facility] Comment on above: Opened In Error Start: 11-07-2022 Refill Jocelyn Simms on PA-C Work Phone: [facility] [place] Comment on above: Refill Request; Refi ll Request Start: 10-15-2022 Telephone encounter Jocelyn Wolff PA-C Work Phone: [facility] [place] Comment on above: Patient Update Start: 10-10-2022 Refill Jocelyn Simms on PA-C Work Phone: [facility] [place] Comment on above: Refill Request Start: 10-08-2022 Telephone encounter Jocelyn Wolff PA-C Work Phone: [facility] [place] Comment on above: Consult Start: 09-27-2022 ambulatory Shakira Mattson [facility] [place] Comment on above: Population Health Na vigation Outreach ([facility]) Start: 09-04-2022 Refill Jocelyn Simms on PA-C Work Phone: [facility] [place] Comment on above: Refill Request Patient Update Start: 08-30-2022 Refill Jocelyn Simms on PA-C Work Phone: [facility] [place] Comment on above: Refill Request Start: 08-21-2022 Telephone encounter Jocelyn Wolff PA-C Work Phone: [facility] [place] Comment on above: Patient Question; Me dication Request Start: 08-04-2022 End: 08-04-2022 Emergency department patient visit RICHELLE Wolff PA Work Phone: [facility]-Emergency Department Start: 07-27-2022 ambulatory No Pcp [facility] [place] Start: 07-12-2022 Telephone encounter Jocelyn Wolff PA-C Work Phone: [facility] [place] Comment on above: [facility] HH, PT plan of c are Start: 07-11-2022 Telephone encounter Jocelyn Wolff PA-C Work Phone: [facility] [place] Comment on above: Patient Update Start: 07-10-2022 Refill Jocelyn Simms on PA-C Work Phone: [facility] [place] Comment on above: Refill Request; Refi ll Request Medication Problem Start: 07-09-2022 Telephone encounter Jocelyn Simmsmarquez KEITH Work Phone: [facility] Comment on above: Patient Question [facility] HH OT POC Start: 07-04-2022 Telephone encounter Jocelyn Wolff INNA Work Phone: [facility] Comment on above: Medication Question Start: 07-03-2022 End: 07-03-2022 Patient encounter procedure Jocelyn Simmsmarquez KEITH Work Phone: [facility] Comment on above: Encounter for suppor t and coordination of transition of care (Primary Dx); Spinal stenosis, lumbar region with neurogenic claudication; Recurrent major depression in partial remission (HCC); Fibromyalgia; Muscle spasm; Depression, unspecified depression type; vermin 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 prescription opiate use; Rheumatoid arthritis involving multiple sites, unspecified whether rheumatoid factor present (HCC); Rheumatoid arthritis involving both hands with positive rheumatoid factor (HCC); Iron deficiency anemia, unspecified iron deficiency anemia type; Hypokalemia; Hypothyroidism, unspecified type; Chronic insomnia Start: 06-29-2022 Telephone encounter Jocelyn Reed New KEITH Work Phone: [facility] Comment on above: home health calling Start: 06-14-2022 End: 06-30-2022 Evaluation and management of inpatient PA NA [facility] Start: 06-14-2022 Non-patient / Non-visit PA STEPHEN Simmson PA Work Phone: [facility] Phys[facility] Start: 06-14-2022 End: 06-14-2022 Evaluation and management of inpatient PA NA Wolff [facility] Start: 06-14-2022 End: 06-14-2022 observation encounter PA Jocelyn Mary PEOPLES Work Phone: [facility] Work Phone: Start: 06-07-2022 Telephone encounter Jocelyn Reed New KEITH Work Phone: [facility] Comment on above: Patient Question Start: 05-24-2022 Telephone encounter Jocelyn Wolff PA-C Work Phone: [facility] [place] Comment on above: Patient Update Start: 05-21-2022 Refill Jocelyn Simms on PA-C Work Phone: [facility] [place] Comment on above: Refill Request Start: 05-15-2022 Telephone encounter Jocelyn Wolff PA-C Work Phone: [facility] [place] Comment on above: Patient Question Start: 05-09-2022 ambulatory Shakira Mattson [facility] [place] Comment on above: Population Health Na vigation Outreach ([facility]) Start: 05-02-2022 ambulatory Jocelyn Simms on PA-C Work Phone: [facility] [place] Start: 04-30-2022 Refill Jocelyn Simms on PA-C Work Phone: [facility] [place] Comment on above: Refill Request; Refi ll Request; Refill Request Start: 04-18-2022 Telephone encounter Jocelyn Wolff PA-C Work Phone: [facility] [place] Comment on above: Anxiety Start: 03-15-2022 Telephone encounter Eunice hale APRN.FIELD APPLICATIONS SPECIALIST Work Phone: [facility] [place] Comment on above: Results (No More Med s) Start: 03-07-2022 Telephone encounter Shakira Hoyos APRN.FIELD APPLICATIONS SPECIALIST Work Phone: [facility] Comment on above: Results Start: 03-06-2022 Refill Jocelyn Simms on PA-C Work Phone: [facility] [place] Comment on above: Refill Request Start: 03-04-2022 End: 03-04-2022 Patient encounter procedure Erna Kelley APRN.FIELD APPLICATIONS SPECIALIST Work Phone: [place] [facility] Comment on above: At increased risk of exposure to COVID-19 virus (Primary Dx); Acute upper respiratory infection, unspecified Start: 03-02-2022 End: 03-02-2022 Patient encounter procedure Erna Kelley APRN.FIELD APPLICATIONS SPECIALIST Work Phone: [facility] Comment on above: Decreased urination (Primary Dx) Start: 02-01-2022 Telephone encounter Jocelyn Mary Wolff PA-C Work Phone: [facility] [place] Comment on above: Patient Question; Pa tient Update Start: 01-03-2022 Telephone encounter Jocelyn Reed New KEITH Work Phone: [facility] [place] Comment on above: Patient Question Start: 01-02-2022 Telephone encounter Jocelyn Reed New KEITH Work Phone: [facility] [place] Comment on above: Sleep Problem Start: 12-28-2021 Telephone encounter Jocelyn Mary Wolff PA-C Work Phone: [facility] [place] Comment on above: Medication Problem Start: 12-26-2021 End: 12-26-2021 Subsequent hospital visit by physician Xr [facility] [place] Work Phone: Radiology Comment on above: Acute pain of right knee [M25.561] Start: 12-26-2021 End: 12-26-2021 Patient encounter procedure Jocelyn Reed New KEITH Work Phone: [facility] [place] Comment on above: Injury of right knee [...] Reed Mendez CASTANONC Work Phone: [facility] [place] Comment on above: Prescription Refills Start: 11-27-2021 End: 11-27-2021 Subsequent hospital visit by physician Bone Density [facility] Work Phone: Radiology Comment on above: Osteoporosis, unspec ified osteoporosis type, unspecified pathological fracture presence [M81.0] Start: 11-23-2021 Telephone encounter Faye Beltran MD Work Phone: [facility] Comment on above: Patient Update Start: 11-23-2021 End: 11-23-2021 Patient encounter procedure Faye Beltran MD Work Phone: [facility] Comment on above: Rheumatoid arthritis involving multiple sites, unspecified whether rheumatoid factor present (HCC) (Primary Dx); Osteoporosis, unspecified osteoporosis type, unspecified pathological fracture presence; vermin 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 prescription opiate use; Lumbar spondylosis; Primary osteoarthritis of right knee; Fibromyalgia; Rheumatoid arthritis involving both hands with positive rheumatoid factor (HCC) Start: 10-13-2021 Telephone encounter Jocelyn Wolff PA-C Work Phone: [facility] [place] Comment on above: Medication Problem Start: 03-27-2021 End: 03-27-2021 Subsequent hospital visit by physician Xr [facility] [place] Work Phone: Radiology Comment on above: Acute pain of right shoulder [M25.511] Procedures Date Procedure Procedure Detail Performing Clinician Start: 02-11-2025 X-ray of knee, one o r two views Sena Garibay NP-C Work Phone: Start: 02-11-2025 X-ray of lumbar spin e, two or three views Sena Garibay MANAGER GENERAL-C Work Phone: Start: 07-04-2023 Mri brain brain stem w/o contrast material Marsha Macias APRN.FIELD APPLICATIONS SPECIALIST Work Phone: Start: 02-19-2023 Radiologic exam knee complete 4/more views Marsha Macias APRN.FIELD APPLICATIONS SPECIALIST Work Phone: Start: 02-06-2023 Lipid 1996 panel - S tracie or Plasma Marsha Macias APRN.FIELD APPLICATIONS SPECIALIST Work Phone: Start: 03-02-2022 Urnls dip stick/tabl et rgnt auto w/o microscopy [facility] Provider Start: 12-26-2021 Radiologic exam knee complete 4/more views Erna Kelley APRN.FIELD APPLICATIONS SPECIALIST Work Phone: Start: 11-27-2021 Dxa bone density santi dy 1/> sites axial skel Faye Beltran MD Work Phone: Start: 03-27-2021 Radex shoulder compl ete minimum 2 views Jude Weiner APRN.FIELD APPLICATIONS SPECIALIST Work Phone: Start: 01-21-2014 Mammography Faye Beltran MD Work Phone: Viral antigen assay PA STEPHEN barragan PA Work Phone: Plan of Treatment Date Care Activity Detail Author Start: 2030 PNEUMOCOCCAL (3 - PP SV23 or PCV20) PNEUMOCOCCAL (3 - PPSV23 or PCV20) [facility] Start: 2030 Pneumococcal vaccination Pneum ococcal Vaccine (3 - PPSV23 or PCV20) [facility] Start: 02-07-2028 Lipid 1996 panel - S tracie or Plasma Lipid Screening [facility] Start: 02-07-2028 Lipid panel Lipid Screening [facility] Start: 02-07-2028 LIPID SCREEN LIPID SCREEN [facility] Start: 06-04-2026 Diabetes Screening Diabetes Screenin g [facility] Start: 02-06-2026 DIABETES SCREEN DIABETES SCREEN [facility] Start: 11-23-2024 DIABETES SCREEN DIABETES SCREEN [facility] Start: 07-06-2024 LIPID SCREEN LIPID SCREEN [facility] Start: 06-04-2024 Annual PCP Team Cancer Registry Manager mei Disease Visit Annual PCP Team Chronic Disease Visit [facility] Start: 05-03-2024 Covid-19 Vaccine ( season) Covid-19 Vaccine ( season) [facility] Start: 05-03-2024 Covid-19 Vaccine ( season) Covid-19 Vaccine ( season) [facility] Start: 05-03-2024 Influenza vaccination Influenza Vacc ine (#1) [facility] Start: 02-07-2024 ANNUAL PCP TEAM MONORAIL HOOKER MEI DISEASE VISIT ANNUAL PCP TEAM CHRONIC DISEASE VISIT [facility] Start: 11-24-2023 End: 12-08-2023 COVID & INFLUENZA A/B & RSV NAAT, ROUTINE COVID & INFLUENZA A/B & RSV NAAT, ROUTINE Microbiology Routine URI, acute Expected: 11/24/2023, Expires: 12/08/2023 [facility] Work Phone: Comment on above: Expected: 11/24/2023 , Expires: 12/08/2023 Start: 07-03-2023 ANNUAL PCP TEAM MONORAIL HOOKER MEI DISEASE VISIT ANNUAL PCP TEAM CHRONIC DISEASE VISIT [facility] Start: 06-07-2023 End: 12-07-2023 Cobalamin (Vitamin B12) [Mass/volume] in Serum or Plasma VITAMIN B12 BLOOD Lab Routine B12 deficiency Expected: 06/07/2023, Expires: 12/07/2023 [facility] Work Phone: Comment on above: Expected: 06/07/2023 , Expires: 12/07/2023 Start: 06-06-2023 End: 12-06-2023 25-hydroxyvitamin D3 [Mass/volume] in Serum or Plasma VITAMIN D 25 HYDROXY Lab Routine Vitamin D deficiency Expected: 06/06/2023, Expires: 12/06/2023 [facility] Work Phone: Comment on above: Expected: 06/06/2023 , Expires: 12/06/2023 Start: 06-06-2023 End: 12-06-2023 Thyrotropin [Units/volume] in Serum or Plasma TSH BLD Lab Routine Hypothyroidism, unspecified type Expected: 06/06/2023, Expires: 12/06/2023 [facility] Work Phone: Comment on above: Expected: 06/06/2023 , Expires: 12/06/2023 Start: 06-06-2023 End: 12-06-2023 Thyroxine (T4) free [Mass/volume] in Serum or Plasma T4 FREE/FREE THYROX Lab Routine Hypothyroidism, unspecified type Expected: 06/06/2023, Expires: 12/06/2023 [facility] Work Phone: Comment on above: Expected: 06/06/2023 , Expires: 12/06/2023 Start: 06-06-2023 End: 12-06-2023 Zinc [Mass/volume] in Serum or Plasma ZINC BLD Lab Routine Zinc deficiency Expected: 06/06/2023, Expires: 12/06/2023 [facility] Work Phone: Comment on above: Expected: 06/06/2023 , Expires: 12/06/2023 Start: 05-03-2023 Covid-19 Vaccine () Covid-19 Vaccine () [facility] Start: 05-03-2023 Influenza vaccination [facility] Start: 12-26-2022 ANNUAL PCP TEAM MONORAIL HOOKER MEI DISEASE VISIT ANNUAL PCP TEAM CHRONIC DISEASE VISIT [facility] Start: 09-14-2022 ANNUAL PCP TEAM MONORAIL HOOKER MEI DISEASE VISIT ANNUAL PCP TEAM CHRONIC DISEASE VISIT [facility] Start: 09-14-2022 SHINGRIX VACCINE (1 of 2) MARTINEZ GRIX VACCINE (1 of 2) [facility] Comment on above: Postponed from 10/27 (Declined at this time) Start: 09-02-2022 End: 11-02-2022 Thyrotropin [Units/volume] in Serum or Plasma TSH BLD Lab Routine Hypothyroidism, unspecified type Expected: 09/02/2022, Expires: 11/02/2022 [facility] Work Phone: Comment on above: Expected: 09/02/2022 , Expires: 11/02/2022 Start: 09-02-2022 End: 11-02-2022 Thyroxine (T4) free [Mass/volume] in Serum or Plasma T4 FREE/FREE THYROX Lab Routine Hypothyroidism, unspecified type Expected: 09/02/2022, Expires: 11/02/2022 [facility] Work Phone: Comment on above: Expected: 09/02/2022 , Expires: 11/02/2022 Start: 07-03-2022 End: 09-02-2022 Basic metabolic 2000 panel - Serum or Plasma BASIC METABOLIC PNL Lab Routine Recurrent major depression in partial remission (HCC) Hypokalemia Expected: 07/03/2022, Expires: 09/02/2022 [facility] Work Phone: Comment on above: Expected: 07/03/2022 , Expires: 09/02/2022 Start: 07-03-2022 End: 09-02-2022 CBC W Auto Differential panel - Blood CBC + DIFF Lab Routine Recurrent major depression in partial remission (HCC) Iron deficiency anemia, unspecified iron deficiency anemia type Expected: 07/03/2022, Expires: 09/02/2022 [facility] Work Phone: Comment on above: Expected: 07/03/2022 , Expires: 09/02/2022 Start: 07-03-2022 End: 09-02-2022 Iron and Iron binding capacity panel - Serum or Plasma IRON + TIBC Lab Routine Iron deficiency anemia, unspecified iron deficiency anemia type Expected: 07/03/2022, Expires: 09/02/2022 [facility] Work Phone: Comment on above: Expected: 07/03/2022 , Expires: 09/02/2022 Start: 06-30-2022 Patient discharge [facility] Work Phone: Start: 06-26-2022 Referral to service [facility] Work Phone: Start: 06-25-2022 [facility] Work Phone: Start: 06-22-2022 [facility] Work Phone: Start: 06-15-2022 Development of care plan [facility] Work Phone: Start: 06-15-2022 Developing a treatme nt plan [facility] Work Phone: Start: 06-14-2022 Following clinical pathway protocol [facility] Work Phone: Start: 06-14-2022 Admission procedure [facility] Work Phone: Start: 06-14-2022 Measuring intake and output [facility] Work Phone: Start: 06-14-2022 Patient referral to dietitian [facility] Work Phone: Start: 06-14-2022 Referral to occupati onal therapist [facility] Work Phone: Start: 06-14-2022 Referral to service [facility] Work Phone: Start: 06-14-2022 Vital signs measurements [facility] Work Phone: Start: 06-14-2022 End: 06-14-2022 [facility] Work Phone: Start: 06-14-2022 Patient discharge [facility] Work Phone: Start: 06-14-2022 Application of intermittent pneumatic compression device [facility] Work Phone: Start: 06-14-2022 Following clinical pathway protocol [facility] Work Phone: Start: 06-14-2022 Application of ice collar, cap or bag [facility] Work Phone: Start: 06-14-2022 Assessment of risk o f venous thromboembolism [facility] Work Phone: Start: 06-14-2022 Fall prevention [facility] Work Phone: Start: 06-14-2022 Inhalation therapy procedure [facility] Work Phone: Start: 06-14-2022 Insertion of cathete r into peripheral vein [facility] Work Phone: Start: 06-14-2022 Introduction of urin ken catheter [facility] Work Phone: Start: 06-14-2022 Measuring intake and output [facility] Work Phone: Start: 06-14-2022 Oxygen therapy [facility] Work Phone: Start: 06-14-2022 Providing care accor ding to standard [facility] Work Phone: Start: 06-14-2022 Provision of activit y privileges [facility] Work Phone: Start: 06-14-2022 Referral to occupati onal therapist [facility] Work Phone: Start: 06-14-2022 Referral to service [facility] Work Phone: Start: 06-14-2022 [facility] Work Phone: Start: 06-14-2022 Admission procedure [facility] Work Phone: Start: 06-14-2022 Patient referral to dietitian [facility] Work Phone: Start: 05-03-2022 Influenza vaccination [facility] Start: 04-25-2022 COVID-19 VACCINE (#1) COVID-19 VACCI NE (#1) [facility] Comment on above: Postponed from 10/27 (Declined at this time) Postponed from 04/26 (Declined at this time) Start: 04-25-2022 COVID-19 VACCINE (1) COVID-19 VACCIN E (1) [facility] Comment on above: Postponed from 10/27 (Declined at this time) Start: 03-04-2022 End: 03-18-2022 Influenza virus A and B RNA and SARS-CoV-2 (COVID-19) N gene panel - Respiratory specimen by NURY with probe detection [facility] Work Phone: Comment on above: Expected: 03/04/2022 , Expires: 03/18/2022 Start: 03-01-2022 Influenza vaccination INFLUENZA (#1) [facility] Comment on above: Postponed from 05/03 (Declined at this time) Start: 12-25-2021 End: 01-22-2023 XR KNEE GENERAL 4V AP BOTH/PA BOTH/LAT/MERC RIGHT XR KNEE GENERAL 4V AP BOTH/PA BOTH/LAT/MERC RIGHT Radiology STAT Acute pain of right knee Expected: 12/25/2021, Expires: 01/22/2023 [facility] Work Phone: Comment on above: Expected: 12/25/2021 , Expires: 01/22/2023 Start: 11-23-2021 End: 01-23-2022 BENZO CONFIRM, URINE [facility] Work Phone: Comment on above: Expected: 11/23/2021 , Expires: 01/23/2022 Start: 11-23-2021 End: 01-23-2022 ETHANOL CONFIRMATION, URINE [facility] Work Phone: Comment on above: Expected: 11/23/2021 , Expires: 01/23/2022 Start: 11-23-2021 End: 01-23-2022 PAIN PANEL, UR QUANT [facility] Work Phone: Comment on above: Expected: 11/23/2021 , Expires: 01/23/2022 Start: 07-24-2018 PNEUMOCOCCAL (2 - PCV) PNEUMOCOCCAL (2 - PCV) [facility] Start: 2015 SHINGRIX VACCINE (1 of 2) MARTINEZ GRIX VACCINE (1 of 2) [facility] Start: 01-21-2015 Mammography [facility] Start: 01-21-2015 Screening for malign ant neoplasm of breast Mammogram Screening [facility] Start: 08-26-2012 HEPATITIS B (2 of 3 - 3-dose series) [facility] Start: 08-26-2012 Hepatitis B Vaccine (2 of 3 - 19+ 3-dose series) Hepatitis B Vaccine (2 of 3 - 19+ 3-dose series) [facility] Start: 2010 COLOGUARD (FIT-DNA) COLOGUARD (FIT-D NA) [facility] Start: 2010 Colonoscopy COLONOSCOPY [facility] Start: 2010 COLORECTAL CANCER SCREENING COLORECTAL CANCER SCREENING [facility] Start: [address] COLONOGRAPHY [facility] Start: 2010 FECAL OCCULT BLOOD FECAL OCCULT BLOO D [facility] Start: 2010 Screening for malign ant neoplasm of colon [facility] Start: 2010 SIGMOIDOSCOPY SIGMOIDOSCOPY [facility] Start: 01-11-2009 Urine microalbumin profile [facility] Start: 1983 HIV SCREENING HIV SCREENING [facility] Start: 1983 HIV screening HIV Screening [facility] Start: 1983 SPIROMETRY SPIROMETRY [facility] Start: 04-26-1966 COVID-19 VACCINE (#1) COVID-19 VACCI NE (#1) [facility] Bacteria identified in Urine by Culture URINE CULTURE Microbiology Routine Decreased urination Ordered: 03/02/2022 [facility] Work Phone: Comment on above: Ordered: 03/02/2022 End: 10-13-2022 BENZO CONFIRM, URINE BENZO CONFIRM, URINE Lab Routine longterm prescription opiate use 1 Occurrences starting 10/13/2021 until 10/13/2022 [facility] Work Phone: Comment on above: 1 Occurrences starti ng 10/13/2021 until 10/13/2022 Calcium.ionized [Mass/volume] in Serum or Plasma [facility] Work Phone: End: 05-09-2024 [facility] SCREEN[facility] SCREEN[facility] Radiology Routine Encounter for screening mammogram for breast cancer 1 Occurrences starting 04/10/2023 until 05/09/2024 [facility] Work Phone: Comment on above: 1 Occurrences starti ng 04/10/2023 until 05/09/2024 End: 10-13-2022 PAIN PANEL, UR QUANT PAIN PANEL, UR QUANT Lab Routine longterm prescription opiate use 1 Occurrences starting 10/13/2021 until 10/13/2022 [facility] Work Phone: Comment on above: 1 Occurrences starti ng 10/13/2021 until 10/13/2022 Patient Education Managing Chronic Pain [facility] Work Phone: Patient referral [facility] Work Phone: End: 06-01-2023 Screening mammography bi 2-view breast inc cad WILVER SCREENING Radiology Routine Encounter for screening mammogram for breast cancer 1 Occurrences starting 05/02/2022 until 06/01/2023 [facility] Work Phone: Comment on above: 1 Occurrences starti ng 05/02/2022 until 06/01/2023 UA DIP, URINE (POC) UA DIP, URIN E (POC) Lab Routine Decreased urination Ordered: 03/02/2022 [facility] Work Phone: Comment on above: Ordered: 03/02/2022 End: 03-07-2024 XR KNEE GENERAL 4V AP BOTH/PA BOTH/LAT/MERC BILATERAL XR KNEE GENERAL 4V AP BOTH/PA BOTH/LAT/MERC BILATERAL Radiology Routine Acute pain of both knees 1 Occurrences starting 02/06/2023 until 03/07/2024 [facility] Work Phone: Comment on above: 1 Occurrences starti ng 02/06/2023 until 03/07/2024 [facility] Immunizations Immunization Date Immunization Notes Care Provider [facility] 05-23-2020 influenza, injectabl e, quadrivalent, preservative free Sena Gairbay MANAGER GENERAL-C Work Phone: [facility] 05-23-2020 influenza, seasonal, injectable Faye Beltran MD Work Phone: [facility] 05-23-2020 influenza virus vacc ine, unspecified formulation Marsha Macias BOBJ DEVELOPER.FIELD APPLICATIONS SPECIALIST Work Phone: [facility] 05-23-2018 influenza, injectabl e, quadrivalent, contains preservative Faye Beltran MD Work Phone: [facility] 05-23-2018 influenza, injectabl e, quadrivalent, preservative free Sena Garibay MANAGER GENERAL-C Work Phone: [facility] 05-23-2018 influenza, seasonal, injectable PA STEPHEN PEOPLES Work Phone: [facility] Work Phone: 07-24-2017 pneumococcal conjuga te vaccine, 13 valent Faye Beltran MD Work Phone: [facility] 07-24-2017 pneumococcal polysaccharide vaccine, 23 valent STEPHEN Wolff PA-C Work Phone: [facility] 06-24-2017 influenza, injectabl e, quadrivalent, contains preservative Faye Beltran MD Work Phone: [facility] 06-24-2017 influenza, injectabl e, quadrivalent, preservative free Sena Phoenix MANAGER GENERAL-C Work Phone: [facility] 06-24-2017 influenza, seasonal, injectable PA NA Wolff PA Work Phone: [facility] Work Phone: 06-21-2016 influenza, injectabl e, quadrivalent, contains preservative Faye Beltran MD Work Phone: [facility] 06-21-2016 influenza, injectabl e, quadrivalent, preservative free Sena Phoenix MANAGER GENERAL-C Work Phone: [facility] 06-21-2016 influenza, seasonal, injectable PA NA Wolff PA Work Phone: [facility] Work Phone: 08-01-2015 influenza, injectabl e, quadrivalent, contains preservative Faye Beltran MD Work Phone: [facility] 08-01-2015 influenza, injectabl e, quadrivalent, preservative free Sena Phoenix MANAGER GENERAL-C Work Phone: [facility] 08-01-2015 influenza, seasonal, injectable PA NA Wolff PA Work Phone: [facility] Work Phone: 07-06-2014 influenza, injectabl e, quadrivalent, preservative free Sena Phoenix MANAGER GENERAL-C Work Phone: [facility] 07-06-2014 influenza, seasonal, injectable Faye Beltran MD Work Phone: [facility] 07-31-2013 influenza virus vacc ine, unspecified formulation Faye Beltran MD Work Phone: [facility] 09-10-2012 influenza virus vacc ine, unspecified formulation Faye Beltran MD Work Phone: [facility] 07-29-2012 hepatitis A vaccine, unspecified formulation Faye Beltran MD Work Phone: [facility] 07-29-2012 hepatitis B vaccine, adult dosage Faye Beltran MD Work Phone: [facility] 07-29-2012 hepatitis B vaccine, unspecified formulation STEPHEN Wolff PA-C Work Phone: [facility] 08-12-2007 influenza virus vacc ine, unspecified formulation Faye Beltran MD Work Phone: [facility] 01-11-1999 diphtheria and tetan us toxoids, adsorbed for pediatric use Faye Beltran MD Work Phone: [facility] Work Phone: 05-02-1976 measles, mumps and rubella virus vaccine Faye Beltran MD Work Phone: [facility] Work Phone: 05-02-1976 trivalent poliovirus vaccine, live, oral Faye Beltran MD Work Phone: [facility] Work Phone: Payers Date Payer Category Payer Self-pay [id number] 2015 Medicare MEDICARE MEDICAR E A AND B [id number] 2015-Present [phone] [place] [id number] Medicare [id number] 2015 Medicare MEDICARE MEDICAR E A AND B [id number] 2015-Present [phone] [address] [place] [id number] Medicare [id number] 2015 Medicare [id number] 2009 Unknown [facility] GENERIC [id number] 2009-Present [id number] [place] [address] [id number] Unknown [id number] Unknown [id number] Social History Date Type Detail Facility Start: 08-31-2011 End: 11-01-2022 Tobacco smoking status NHIS Never smoked tobacco [facility] Start: 03-11-2021 End: 11-23-2021 Alcohol intake Current non-drinker of alcohol (finding) [facility] Start: 1965 Sex Assigned At Not on file [facility] Start: 02-25-2021 End: 03-04-2022 Exposure to SARS-CoV-2 (event) Not sure [facility] Start: 08-31-2011 Tobacco use and exposure Smokeless tobacco non-user [facility] Start: 05-11-2022 End: 05-21-2022 Exposure to SARS-CoV-2 (event) Unable to assess [facility] Work Phone: Start: 06-14-2022 End: 08-04-2022 Tobacco smoking status NHIS Unknown if ever smoked [facility] Work Phone: Start: 06-29-2013 None [facility] Start: 02-04-2019 With Family [facility] Start: 11-06-2019 Non-smoker [facility] Start: 1965 Sex Assigned At Female [facility] Start: 08-09-2020 End: 02-06-2023 History of Social function [facility] Start: 08-09-2020 End: 02-06-2023 Tobacco use panel [facility] Adult Depression Screening Assessment 0 [facility] Medical Equipment Procedure Code Equipment Code Equipment Origin al Text Equipment Identifier Dates Patch Srg 5.5x4.3in [facility] Nvigen - [id number] Start: 04-22-2015 [id number] Start: 02-25-2015 Comment on above: test once/day. DX 25 0.00 no insulin 1 Each once every mo nth. 1 ml, 25 gauge 1/2 Goals Date Patient Goal Desired Activity /State Functional Status Date Assessment Result Facility 06-30-2022 Functional status Amb[facility] [facility] Work Phone: 06-14-2022 Functional status Bedrest [facility] Work Phone: Mental Status Date Assessment Result Facility 08-04-2022 Cognitive function Level Of Consciousness Awake [facility] Work Phone: 06-30-2022 Cognitive function Voice/Name [facility] Work Phone: 06-23-2022 Cognitive function Appropriate;Cooperativ e [facility] Work Phone: 06-14-2022 Cognitive function Awake;Alert;A ppropriate;Follow s Commands [facility] Work Phone: 06-14-2022 Cognitive function Voice/Name [facility] Work Phone: Clinical Notes 11-11-2018 to 02-12-2025 Erna Kelley APRN.FIELD APPLICATIONS SPECIALIST - 11/24/2023 10:50 AM Shakira Saini MA - 08/05/2023 8:51 AM ESTTelephone Encounter - Miller Stafford MD - 07/27/2023 10:59 AM ESTPatient Instructions Note Date & Type Note Facility 02-12-2025 Radiology Diagnostic study note [facility] Imaging Services [address] [place], [place] [id number] Lumbar Spine 2 or 3 Views MR#: [id number] Acct: [id number] Name: PAULINA MEI Rep #: [id number] : 1965 F 59 From: Germán Montes MD PCP: LEROY Khalil Status: REG CLI Study:Lumbar Spine 2 or 3 Views Date of Exam: 02/11/25 Exam# [id number] Ordering Dr: Addi Lynn MD PROCEDURE: LUMBAR [...] or 3 Views IMPRESSION: Spondylosis. [facility] CC: LEROY Garibay; Dr. Efren Lynn MD ~ Emergency Room Nurse: Signed [facility] 02-12-2025 Radiology Diagnostic study note [facility] Imaging Services [address] [place] [address] Knee 1 or 2 Views MR#: [id number] Acct: [id number] Name: PAULINA MEI Rep #: [id number] : 1965 F 59 From: Germán Montes MD PCP: LEROY Khalil Status: REG CLI Study:Knee 1 or 2 Views Date of Exam: Exam# [id number] Ordering Dr: Addi Lynn MD PROCEDURE: KNEE [...] of degenerative joint disease, increased. [facility] CC: LEROY Garibay; Dr. Efren Lynn MD ~ Emergency Room Nurse: Signed [facility] 02-12-2025 Radiology Diagnostic study note [facility] Imaging Services [address] [place] [address] Knee 1 or 2 Views MR#: [id number] Acct: [id number] Name: PAULINA MEI Rep #: [id number] : 1965 F 59 From: Germán Montes MD PCP: LEROY Khalil Status: REG CLI Study:Knee 1 or 2 Views Date of Exam: Exam# [id number] Ordering Dr: Addi Lynn MD PROCEDURE: KNEE [...] No evidence for acute abnormality. Reading Location: [place] [address] CC: MANAGER GENERAL-C Sena Garibay; Dr. Efren Lynn MD ~ Emergency Room Nurse: Signed [facility] 11-24-2023 Note HNO ID: [id number] Author: ERNA KELLEY APRN.[facility] Service: ? Author Type: Nurse Practitioner [...] migrainosus Morbid obesity due to excess calories ([facility]) 12/15/2015 Polyneuropathy in other diseases classified elsewhere ([facility]) Recurrent major depression in partial remission ([facility]) 02/29/2020 Rheumatoid arthritis(714.0) Systemic lupus erythematosus arthritis ([facility]) 03/18/2014 Unspecified asthma(493.90) Unspecified hypothyroidism Vitamin B [...] naloxone (NARCAN) 4 mg/actuation nasal spray 1 [place] by nasal (alternating) route as directed for 1 dose. 1 spray into 1 nostril. Additional doses may be given every 2-3 minutes until emergency arri (more content not included)... [facility] 11-24-2023 History of Presen t illness Narrative [...] 12/15/2015 Polyneuropathy in other diseases classified elsewhere ([facility]) Recurrent major depression in partial remission (HCC) [...] naloxone (NARCAN) 4 mg/actuation nasal spray 1 [place] by nasal (alternating) route as directed for [...] Erna Kelley APRN.[place]LEY documented in this encounter [facility] 08-05-2023 Note Patient Outreach (SUPRIYA TNAV) SIGIFREDOPAULINA Shen ([id number]) 1965 F NFR Date Time Provider Department [...] naloxone (NARCAN) 4 mg/actuation nasal spray 1 [place] by nasal (alternating) route as directed for [...] needed for Wheezing/Shortness (more content not included)... [facility] 08-05-2023 Note HNO ID: [id number] Author: Shakira Mattson MA Service: ? Author Type: Stock Worker Type: Progress Notes Filed: 08/05/2023 1:27 PM [...] Mattson MA August 05, 2023 8:51 AM [facility] 08-05-2023 History of Presen t illness Narrative [...] 2023 8:51 AM documented in this encounter [facility] 07-27-2023 Miscellaneous Notes OK to refill as [...] advise. Holly Caraballo documented in this encounter [facility] 07-23-2023 Miscellaneous Notes Notified patient. Patient says Thankyou to provider. Script sent. Marsha Macias APRN.FIELD APPLICATIONS SPECIALIST Patient calling she had diarrhea start on [...] did COVID test was negative. Patient uses [facility] for her pharmacy. Please advise documented in this encounter [facility] 07-08-2023 Miscellaneous Notes Pt notified. She verbalized [...] facilitate scheduling with oral surgery. Marsha Macias APRN.FIELD APPLICATIONS SPECIALIST documented in this encounter [facility] 07-04-2023 Note HNO ID: [id number] Author: Emy Santoyo RT(Augusto) Service: ? Author [...] RT Priyank(R) July 04, 2023 3:11 PM [facility] 07-04-2023 History of Presen t illness Narrative [...] 2023 3:11 PM documented in this encounter [facility] 06-14-2023 Miscellaneous Notes Pt advised of Marsha's message and instructions. Pt verbalizes understanding. Pt reports that she will go to [facility] ER. Yamile Michael LPN She was seen [...] back with Dr F Cebul. Patient uses [facility] for her pharmacy. Patient is asking for rx to help get rid of the headache, she thinks from the weather change. Please advise documented in this encounter [facility] 06-12-2023 Miscellaneous Notes Pt notified. She verbalized understanding. Rahul Andre LPN Scripts sent. Her last potassium was normal, so if she has not been taking the potassium, then I would stay off of that for now. Marsha Macias APRN.FIELD APPLICATIONS SPECIALIST Call to patient and she states that [...] advise. Alicja Gan documented in this encounter [facility] 06-07-2023 Miscellaneous Notes Phoned patient and aware [...] and patient politely declined. Pt uses [facility] [place]. Please call patient once script has been sent please. [phone] Thank you. TC to Pt. Unable to [...] Marsha Macias APRN.PRESLEY documented in this encounter [facility] 06-04-2023 Note HNO ID: [id number] Author: Marsha Macias APRN.FIELD APPLICATIONS SPECIALIST Service: ? Author Type: Nurse Practitioner Type: [...] migrainosus Morbid obesity due to excess calories ([facility]) 12/15/2015 Polyneuropathy in other diseases classified elsewhere ([facility]) Recurrent major depression in partial remission ([facility]) 02/29/2020 Rheumatoid arthritis(714.0) Systemic lupus erythematosus arthritis ([facility]) 03/18/2014 Unspecified asthma(493.90) Unspecified hypothyroidism Vitamin B [...] May repeat every (more content not included)... [facility] 04-12-2023 Miscellaneous Notes The following approved medication [...] advise. Rosi Caal documented in this encounter [facility] 04-10-2023 Note Patient Outreach (IN TMMN) PAULINA MEI ([id number]) 1965 F NFR Date Time Provider Department [...] for screening mammogram for breast cancer [Z12.31] Order(s):[facility] S[facility]EN[facility] [5215426] Order #: [id number] FUTURE Prescriptions as of 04/15/2023 - traZODone [...] naloxone (NARCAN) 4 mg/actuation nasal spray 1 [place] by nasal (alternating) route as directed for [...] Wheezing/Shortness of Breath. - blood sugar diagnostic (MENA360 ULTRA TEST) test strip test once/day. DX [...] calories (HCC) [E6*12/14 (more content not included)... [facility] 03-21-2023 Note HNO ID: [id number] Author: Kenzie Herrera MA Service: ? Author Type: Stock Worker Type: Progress Notes Filed: 03/21/2023 3:36 PM Note Text: POPULATION HEALTH NAVIGATION OUTREACH Action/I March 21, 2023 3:32 PM HCC Gaps M06.9 - Rheumatoid arthritis involving multiple sites (HCC) - [id number] Last Billed 07/03/2022 F33.41 - Recurrent major depression in partial remission (HCC) - [id number] Last Billed 07/03/2022 GE with PCP team [...] Herrera MA March 21, 2023 3:32 PM [facility] 03-21-2023 Note Patient Outreach (SUPRIYA TNAV) PAULINA MEI ([id number]) 1965 F NFR Date Time Provider Department 03/21/23 KENZIE HERRERA During your visit today, we recorded the following information about you: Kenzie Herrera MA 03/21/2023 3:36 PM Signed POPULATION HEALTH NAVIGATION OUTREACH Action/March 21, 2023 3:32 PM HCC Gaps M06.9 - Rheumatoid arthritis involving multiple sites (HCC) - [id number] Last Billed 07/03/2022 F33.41 - Recurrent major depression in partial remission (HCC) - [id number] Last Billed 07/03/2022 GE with PCP team [...] Population Health Navigation Outreach [3910] Cmt: ACO [facility] Prescriptions as of 03/21/2023 - topiramate (TOPAMAX) [...] naloxone (NARCAN) 4 mg/actuation nasal spray 1 [place] by nasal (alternating) route as directed for 1 dose. 1 spray into 1 nostril. Additional doses may be given every 2-3 minutes until emergency arrives. - fluticasone (FLONASE) 50 mcg/actuation nasal spray Use 2 Sprays in each nostril once daily. Rinse mouth a (more content not included)... [facility] 03-12-2023 Miscellaneous Notes Called patient and scheduled her Saturday with Kapil. Patient was on wait list for the following - Acute pain of both knees [M25.561, M25.562] Patient had also stated she had a fx in her knee. documented in this encounter [facility] 03-01-2023 Miscellaneous Notes Pt. informed. Can please let patient know that I did hear back from ortho. The would like her to be non-weight bearing on the right leg until she is evaluated by them. Does she have a wheelchair or walker to use at home? documented in this encounter [facility] 02-25-2023 Miscellaneous Notes Patient notified and verbalized [...] Marsha Macias APRN.PRESLEY documented in this encounter [facility] 02-23-2023 Note IMPRESSION: BILATERAL DEGENERATIVE JOINT DISEASE [...] be communicated with the ordering provider via [employer] staff message or phone message by Imaging Support Services within 2 business days of report finalization. ==== Algorithms for management of incidental imaging findings can be found on the [facility] Intranet Sharepoint site at: [email or web address].[facility].org/documentation /mychartlinks/Managing%20Inciden guanako%20Findi ngs%20at%20Imaging/Forms/AllItem s.aspx Emergency Room Nurse: HERMES Transcribe Date/Time: Feb 23 2023 11:53A Dictated by : MELONIE HILLMAN MD This examination was interpreted and the report reviewed and electronically signed by: MELONIE HILLMAN MD on Feb 23 2023 11:59AM [facility] 02-19-2023 Note HNO ID: [id number] Author: Holli Stanley RT(R) Service: Nuclear Medicine [...] RT Yazmin(R) February 19, 2023 11:47 AM [facility] 02-19-2023 History of Presen t illness Narrative [...] 2023 11:47 AM documented in this encounter [facility] 02-13-2023 Miscellaneous Notes Spoke with patient and [...] refill for prednisone 10 mg sent to [facility] in [place]. Please advise, thank you. documented in this encounter [facility] 02-06-2023 Note HNO ID: [id number] Author: Marsha Macias APRN.FIELD APPLICATIONS SPECIALIST Service: ? Author Type: Nurse Practitioner Type: [...] (HCC) Recurrent major depression in partial remission ([facility]) 02/29/2020 Rheumatoid arthritis(714.0) Systemic lupus erythematosus arthritis [...] naloxone (NARCAN) 4 mg/actuation nasal spray 1 [place] by nasal (alternating) route as directed for 1 dose. 1 spray into 1 nostril. Additional doses may be given every 2-3 minutes until emergency arrives. fluticasone (FLONASE) 50 mcg/actuation nasal spray Use 2 Sprays in each nostril once daily. Rinse mouth after use. blood sugar diagnostic (ONETOUCH ULTRA TEST) test strip test once/day. DX 250.00 no insulin Blood-Gluc (more content not included)... [facility] 02-06-2023 Instructions Marsha Macias APRN.CNP - 02/06/2023 [...] Schedule w/ ortho. documented in this encounter [facility] 02-06-2023 History of Presen t illness Narrative [...] 12/15/2015 Polyneuropathy in other diseases classified elsewhere ([facility]) Recurrent major depression in partial remission ([facility]) 02/29/2020 Rheumatoid arthritis(714.0) Systemic lupus erythematosus arthritis [...] naloxone (NARCAN) 4 mg/actuation nasal spray 1 [place] by nasal (alternating) route as directed for [...] Marsha Macias APRN.PRESLEY documented in this encounter [facility] 01-21-2023 Note HNO ID: [id number] Author: Shakira Mattson MA Service: ? Author Type: Stock Worker Type: Progress Notes Filed: 01/21/2023 4:26 PM [...] Mattson MA January 21, 2023 1:08 PM [facility] 01-21-2023 Note Patient Outreach (SUPRIYA LOPEZ) PAULINA MEI ([id number]) 1965 F NFR Date Time Provider Department [...] naloxone (NARCAN) 4 mg/actuation nasal spray 1 [place] by nasal (alternating) route as directed for [...] of 04/14/2013: Prob (more content not included)... [facility] 12-27-2022 Miscellaneous Notes Noted. Dru Wolff PA-C [...] Silvia Gauthier RN documented in this encounter [facility] 12-27-2022 Miscellaneous Notes Patient was triaged Added [...] Luz Chaparro LPN documented in this encounter [facility] 11-28-2022 Note Patient Outreach (SUPRIYA TNAV) PAULINA MEI ([id number]) 1965 F NFR Date Time Provider Department 11/28/22 SHAKIRA MATTSON During your visit today, we recorded the following information about you: Shakira Mattson MA 11/28/2022 1:46 PM Signed POPULATION HEALTH NAVIGATION OUTREACH Action/SRINIVAS negrete2 [employer] MESSAGE SENT ANNUAL MEDICARE WELLNESS COLORECTAL CANCER SCREENING Never done MAMMOGRAM due on 01/21/2015 INFLUENZA(1) due on 05/03/2022 Patient Identified by Name and : NO Outreach Outcome/Action Unable to reach patient: Phone number not valid / voicemail full markedup message sent Did you use a PCP [...] naloxone (NARCAN) 4 mg/actuation nasal spray 1 [place] by nasal (alternating) route as directed for [...] as of 04/14 (more content not included)... [facility] 11-28-2022 Note HNO ID: [id number] Author: Shakira Mattson MA Service: ? Author Type: Stock Worker Type: Progress Notes Filed: 11/28/2022 1:46 PM Note Text: POPULATION HEALTH NAVIGATION OUTREACH Action/I Fast busyx2 [employer] MESSAGE SENT ANNUAL MEDICARE WELLNESS COLORECTAL CANCER SCREENING Never done MAMMOGRAM due on 01/21/2015 INFLUENZA(1) due on 05/03/2022 Patient Identified by Name and : NO Outreach Outcome/Action Unable to reach patient: Phone number not valid / voicemail full [employer]comt message sent Did you use a PCP [...] Mattson MA November 28, 2022 9:29 AM [facility] 11-28-2022 History of Presen t illness Narrative POPULATION HEALTH NAVIGATION OUTREACH Action/ Fast busyx2 [employer] MESSAGE SENT ANNUAL MEDICARE WELLNESS COLORECTAL CANCER SCREENING Never done MAMMOGRAM due on 01/21/2015 INFLUENZA(1) due on 05/03/2022 Patient Identified by Name and : NO Outreach Outcome/Action Unable to reach patient: Phone number not valid / voicemail full [employer] message sent Did you use a PCP [...] 2022 9:29 AM documented in this encounter [facility] 11-14-2022 Miscellaneous Notes Phoned Chiara Quevedo, [place], and given Nicol reply in previous encounter. Yes, I agree with changes. Thanks, Dru Wolff PA-C documented in this encounter [facility] 11-14-2022 Miscellaneous Notes Left message for Emy [...] Emy Young NP. Her last day with [facility] is tomorrow 11-15-22 and she will be coming on board with [facility]. PH: [phone]. Luz Chaparro LPN documented in this encounter [facility] 11-10-2022 Miscellaneous Notes OK to refill as [...] (muscle spasms). Please review and advise. Merari Boohte Pss documented in this encounter [facility] 11-08-2022 Miscellaneous Notes Spoke with with pharmacy. [...] Ma Patient is calling she stated that [facility] [place] told her they do not have the [...] Yaz Dunham Pss documented in this encounter [facility] 11-08-2022 Miscellaneous Notes Opened in error documented in this encounter [facility] 10-16-2022 Miscellaneous Notes Patient calls back and MC message reviewed. Patient distraught and will contact [facility]'s office. Patient reports she is aware of [...] care of herself. Juanita Vizcaino RN See ePrivateHiret message. Dru Wolff PA-C Pt calls back [...] Samira Villareal RN documented in this encounter [facility] 10-10-2022 Miscellaneous Notes Patient has been identified by name and date of : Yes Requested Prescriptions Pending Prescriptions Disp Refills tiZANidine (ZANAFLEX) 4 mg tablet 240 tablet 1 Sig: Take 2 tablets by mouth every 6 hours as needed (muscle spasms). RX INSTRUCTIONS: Patient aware RX will be sent to pharmacy. No need to notify patient. Marlene Valentin Pss documented in this encounter [facility] 10-09-2022 Miscellaneous Notes Form, face sheet, copy [...] Samira Villareal RN documented in this encounter [facility] 09-27-2022 History of Presen t illness Narrative POPULATION HEALTH NAVIGATION OUTREACH Action/FYI [facility]VM MYCHART MESSAGE SENT ANNUAL MEDICARE WELLNESS COLORECTAL CANCER SCREENING Never done MAMMOGRAM due on 01/21/2015 INFLUENZA(1) due on 05/03/2022 Patient Identified by Name and : NO Outreach Outcome/Action Unable to reach patient: Left message [employer] message sent Did you use a PCP [...] 2022 8:36 AM documented in this encounter [facility] 09-04-2022 Miscellaneous Notes Called patient who tells [...] Jocelyn WOLFF PA-C documented in this encounter [facility] 09-04-2022 Miscellaneous Notes I have sent concerns [...] Alicja Scruggs Pss documented in this encounter [facility] 08-30-2022 Miscellaneous Notes Patient has been identified [...] Merari Boothe Pss documented in this encounter [facility] 08-29-2022 Miscellaneous Notes Pt notified. She verbalized [...] already taking prednisone 20 mg daily for [facility]. Patient reports that she is requesting tramadol [...] call and advise. documented in this encounter [facility] 07-27-2022 History of Presen t illness Narrative POPULATION HEALTH NAVIGATION OUTREACH Action/FYI [place] Support: Called pt to schedule an appt [...] 2022 3:56 PM documented in this encounter [facility] 07-21-2022 Miscellaneous Notes Dru received fax from [...] Phone number listed for Mandy is main [facility] phone #. DAYANNA to Salvador at [facility] ([phone]), left detailed message on secure identified voicemail. Waiting call back. Rahul Andre LPN See of they can get a repeat bp XOCHITL Galvan @ [facility] calling to report patient's BP was 71/51 @ 11A prior to starting therapy. Patient had no complaints of dizziness or lightheadedness. Patient was drinking liquid when OT arrived. OT did not re check BP. Physical Therapy is due to see patient later today. Samira Villareal RN documented in this encounter [facility] 07-19-2022 Miscellaneous Notes See other encounter Left [...] Jocelyn WOLFF PA-C documented in this encounter [facility] 07-12-2022 Miscellaneous Notes Milly with [facility] HH, PT calling with plan of care for pt. They will see pt 2 times a week for 3 week for lower extremities strengthening, transfers, gait training and balance. NO call needed. Luz Chaparro LPN documented in this encounter [facility] 07-12-2022 Miscellaneous Notes See additional phone message [...] Marlene Valentin Pss documented in this encounter [facility] 07-09-2022 Miscellaneous Notes Salvador notified of provider message Yes she has had + Rheumatoid factor + CCP, +BONNY Multiple treatment failures. Whole body pain. Worse in hands, feet. Thanks, Dru Wolff PA-C Salvador with [facility], nursing calling with a coding question. Salvador states they know pt has rheumatoid arthritis. 1)Pt's insurance is asking if pt had lab work done to dx this and was it positive. 2)Salvador also states she needs to know all sites pt's rheumatoid arthritis affects Please call Salvador back PH: [phone]. Luz Chaparro LPN documented in this encounter [facility] 07-09-2022 Miscellaneous Notes Zulema LEUNG calling from [facility] to report plan of care for patient and OT will visit patient 2 times a week for 2 weeks and 1 time a week for 1 week. OT will work with patient on home exercise program and ADL's. No return call needed if provider agrees with plan of care. Juanita Vizcaino RN documented in this encounter [facility] 07-04-2022 Miscellaneous Notes Left detailed message that [...] issue with her multiple meds. Salvador from [facility] calling stating pt was discharged for hospital [...] potassium and dicylomine. Ok to take both? group home will follow pt 1x wk for 4 wks focusing on rheumatoid arthritis and pain control. Call Salvador at [phone] Yamile Michael LPN documented in this encounter [facility] 07-03-2022 History of Presen t illness Narrative 56 year old female with c/o Hospital discharge follow-up Date of admission 06/14/2022 Date of discharge: 06/14/2022 Discharge diagnoses: 1. Rheumatoid arthritis flare 2. Hypothyroidism 3. Fibromyalgia 4. Iron deficiency anemia 5. Vitamin B12 deficiency 6. Chronic migraine 7. Depression Hospital discharge summary: Preadmission details: 06/14/2022 presented to [facility] emergency department with complaint of having a [...] Patient was seen by PT and OT. 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 Emy Jang Ma Jagruti from [facility] Home Health calling received orders for long term, PT/OT for the patient. Patient will be discharging Saturday from [facility], had Rheumatoid Arthritis flare and debility. Asking if PCP would follow patient and sign orders? Please advise documented in this encounter [facility] 06-19-2022 Miscellaneous Notes Patient returned call and given provider's message below. Patient reports she has been in [facility] hospital TCU, since Sat, with Dx: Arthritis [...] x3 days with food. Authorizing Provider: Jocelyn OWLFF Greg Barton, PA-C Patient calls to ask [...] Juanita Vizcaino RN documented in this encounter [facility] 05-25-2022 Miscellaneous Notes Phoned patient at 829am [...] Silvia Gauthier RN documented in this encounter [facility] 05-21-2022 Miscellaneous Notes Last office visit: 12/26/21 [...] Alicja Scruggs Pss documented in this encounter [facility] 05-15-2022 Miscellaneous Notes Patient was notified of [...] Kelli Alvarez RN documented in this encounter [facility] 05-09-2022 History of Presen t illness Narrative POPULATION HEALTH NAVIGATION OUTREACH Action/FYI pt declined Patient is on HCC list for below gaps and needs appt to address : F33.41 - Recurrent major depression in partial remission (HCC) - [id number] Last Billed 06/16/2020
WELLNESS EXAM COLORECTAL CANCER [...] 2022 8:49 AM documented in this encounter [facility] 04-30-2022 Miscellaneous Notes The following approved medication [...] Estelle Vieyra Pss documented in this encounter [facility] 04-19-2022 Miscellaneous Notes The following approved medication [...] due to same. documented in this encounter [facility] 03-15-2022 Miscellaneous Notes Patient most recent UDS [...] Please advise patient. Thank you, Eunice Olivarez APRN.FIELD APPLICATIONS SPECIALIST documented in this encounter [facility] 03-07-2022 Miscellaneous Notes Patient given results and verbalized understanding of instructions given. Holly Mchugh ----- Message from Shakira Rajput APRN.FIELD APPLICATIONS SPECIALIST sent at 03/07/2022 9:03 AM EDT ----- Please advise patient of negative COVID/flu test (result not viewed on [email or web address]). documented in this encounter [facility] 03-06-2022 Miscellaneous Notes The following approved medication [...] Marlene Valentin Pss documented in this encounter [facility] 03-04-2022 History of Presen t illness Narrative [...] migrainosus Morbid obesity due to excess calories ([facility]) 12/15/2015 Polyneuropathy in other diseases classified elsewhere ([facility]) Recurrent major depression in partial remission ([facility]) 02/29/2020 Rheumatoid arthritis(714.0) Systemic lupus erythematosus arthritis ([facility]) 03/18/2014 Unspecified asthma(493.90) Unspecified hypothyroidism Vitamin B [...] naloxone (NARCAN) 4 mg/actuation nasal spray 1 [place] by nasal (alternating) route as directed for [...] once/day. DX 250.00 no insulin Blood-Glucose Meter (Platypus CraftTOUCH ULTRA SYSTEM KIT) monitoring kit test one [...] Erna Kelley APRN.PRESLEY documented in this encounter [facility] 03-02-2022 History of Presen t illness Narrative [...] 12/15/2015 Polyneuropathy in other diseases classified elsewhere ([facility]) Recurrent major depression in partial remission (HCC) [...] naloxone (NARCAN) 4 mg/actuation nasal spray 1 [place] by nasal (alternating) route as directed for [...] Patient agreeable to treatment plan. Erna Kelley APRN.FIELD APPLICATIONS SPECIALIST documented in this encounter [facility] 03-01-2022 Note HNO ID: [id number] Author: Eunice Olivarez APRN.CNP Service: ? Author Type: Nurse Practitioner Type: Progress Notes Filed: 03/04/2022 9:19 AM Note Text: [facility] Today's Date: 03/01/2022 Last Visit: 11/23/21 [...] She is scheduled to establish with a Street Photographer on 03/27/22 Recall Last OV 11/23/21: Dr. Beltran discussed: Encouraged to establish with a Street Photographer. Her pain may be better controlled as [...] Intervention/Comfort measure Medication Medication;Relaxation;Reposition ;Positioning Pain Assessment (RN/TRADE SALES ASSISTANT) - - Current Pain Medications: o Opioids: [...] the level o (more content not included)... [facility] 03-01-2022 Note HNO ID: [id number] Author: Michaela Vela MA Service: ? Author Type: Stock Worker Type: Progress Notes Filed: 03/04/2022 9:19 AM [...] suicidal ideas. The patient is not nervous/anxious. [facility] 02-02-2022 Miscellaneous Notes Pt. informed. Tanya Vyas [...] Samira Villareal, RN documented in this encounter [facility] 01-04-2022 Miscellaneous Notes I will mychart her. Dru Wolff PA-C Patient is very upset and needs something for insomnia. Patient does not agree with not getting medication for insomnia and thinks this is very unfair. Patient is aware that Ambien and Ativan are short term and are not to be superintendent terminal. Patient is angry an said that Dr. [...] to sleep. The ativan is not a superintendent terminal option. Sedatives interfere with restorative sleep and [...] to take anything to sleep? Patient uses [facility] for her pharmacy. Aware PA is out of office on Saturday. Please advise documented in this encounter [facility] 01-02-2022 Miscellaneous Notes Pt notified. She verbalized understanding. Rahul Andre LPN The prescription is only meant to cover the withdrawal period from Ambien. It is not a retirement option. The goal is to reduce medication. Thanks, Dru Wolff PA-C Pt calls to report that lorazepam 0.5 mg 2 tabs at night helped her sleep. Pt reports she tried 1 tab at first but that did not work. Pt is asking for a rx for lorazepam 0.5 -2 tabs at bedtime. Please review and advise. Kathryn Stauffer LPN documented in this encounter [facility] 12-29-2021 Miscellaneous Notes Patient notified. Okay, stop [...] Wolff PA-C Patient calling to say [facility] tells her she cannot get a refill of Ambien until January 05 and she is asking if PCP will contact pharmacy to approve early refill. She states she is taking Ambien nightly and needs 30 pills/month. Samira Villareal, RN documented in this encounter [facility] 12-26-2021 History of Presen t illness Narrative [...] 2021 1:43 PM documented in this encounter [facility] 12-26-2021 History of Presen t illness Narrative [...] (HCC) Recurrent major depression in partial remission ([facility]) 02/29/2020 Rheumatoid arthritis(714.0) Systemic lupus erythematosus arthritis [...] Deficiency Fibromyalgia Rheumatoid Arthritis Involving Multiple Sites ([facility]) Chronic Migraine Without Aura Without Status Migrainosus, Not Intractable Mild Intermittent Asthma Without Complication Insomnia Secondary to Anxiety Morbid Obesity Due to Excess Calories (Hcc) History of Gastric Bypass Gastroesophageal Reflux Disease Meralgia Paresthetica, Right Lower Limb Ddd (Degenerative Disc Disease), Lumbar Anemia Primary Osteoarthritis of Both Knees Vitamin B 12 Deficiency Iron Malabsorption Zinc Deficiency Vitamin B6 Deficiency Woods Manager Prescription Opiate Use Sandy (Nonalcoholic Steatohepatitis) Idiopathic [...] naloxone (NARCAN) 4 mg/actuation nasal spray 1 [place] by nasal (alternating) route as directed for [...] Jocelyn Wolff PA-C documented in this encounter [facility] 12-23-2021 History of Presen t illness Narrative [...] history is provided by the patient. No spanish medical interpreter was used. Review of Systems Constitutional: Negative. [...] migrainosus Morbid obesity due to excess calories ([facility]) 12/15/2015 Polyneuropathy in other diseases classified elsewhere ([facility]) Recurrent major depression in partial remission (HCC) [...] naloxone (NARCAN) 4 mg/actuation nasal spray 1 [place] by nasal (alternating) route as directed for [...] once/day. DX 250.00 no insulin Blood-Glucose Meter (Platypus CraftTOUCH ULTRA SYSTEM KIT) monitoring kit test one [...] Erna Kelley APRN.PRESLEY documented in this encounter [facility] 12-06-2021 History of Presen t illness Narrative [...] 2021 12:49 PM documented in this encounter [facility] 12-04-2021 Miscellaneous Notes The following approved medication [...] tablets; 2 refills. documented in this encounter [facility] 11-27-2021 History of Presen t illness Narrative [...] 2021 2:37 PM documented in this encounter [facility] 11-23-2021 Note HNO ID: [id number] Author: Yajaira Morgan MA Service: ? Author Type: Stock Worker Type: Progress Notes Filed: 11/23/2021 2:29 PM [...] suicidal ideas. The patient is not nervous/anxious. [facility] 11-23-2021 Note HNO ID: [id number] Author: Faye Beltran MD Service: ? Author Type: Physician Type: Progress Notes Filed: 11/23/2021 2:29 PM Note Text: [facility] Name: Paulina Mei : 1965 Purpose: Follow-Up [...] steroids. She has not reestablished with a Street Photographer. Bone density scan was ordered, not obtained. [...] of rheumatoid arthritis. She is followed with [facility] rheumatology in the past last being [...] She is currently not following with any director of professional services. She reports she is on daily steroids [...] day. We discussed a possible rotation to [place] in the future. However I had like [...] Compliance: PDMP w (more content not included)... [facility] 11-23-2021 Miscellaneous Notes Sent in consult to Rheumatology, the confirmation number is [id number]. documented in this encounter [facility] 11-23-2021 History of Presen t illness Narrative [...] not included. [facility] Name: Paulina Mei : 1965 Purpose: Follow-Up [...] steroids. She has not reestablished with a Street Photographer. Bone density scan was ordered, not obtained. [...] of rheumatoid arthritis. She is followed with [facility] rheumatology in the past last being [...] She is currently not following with any director of professional services. She reports she is on daily steroids [...] day. We discussed a possible rotation to [place] in the future. However I had like [...] - Gastric bypass Opioids: Tramadol, Vicodin or [place] (Hydrocodone) and Percocet (Oxycodone) - intolerance to [...] or double vision) Respiratory: Negative (No Cough, [id number], Dyspnea on exertion, wheezing) Cardiovascular: Negative (No [...] DATE OF EXAM: Aug 09 2017 3:07PM [facility] 0303 - MRI LUMBAR SPINE WO IVCON [...] 1. Degenerative facet changes L4/5 and L5/S1 Emergency Room Nurse: PSCB Transcribe Date/Time: Aug 09 2017 3:13P [...] multiple sites, unspecified whether rheumatoid factor present ([facility]) (primary encounter diagnosis) (M81.0) Osteoporosis, unspecified osteoporosis type, unspecified pathological fracture presence (Z79.891) longterm prescription opiate use (M47.816) Lumbar spondylosis (M17.12) [...] (06/2021) Referrals: Encouraged to establish with a Street Photographer. Her pain may be better controlled as [...] to pain and possibly for depression Functional Anabaptism: No changes-continue current regimen Depending on response [...] MBA Pain Management [facility] documented in this encounter [facility] 10-13-2021 Miscellaneous Notes Sending refill today for 30 days. She needs a random drug screen - she can get it on Saturday at the [facility] where she sees me for clinic. Can we move her appointment to an earlier date (preferably before November 09)? It can be with my FIELD APPLICATIONS SPECIALIST, Eunice. Please remind her that we refill [...] up to early October by seeing my FIELD APPLICATIONS SPECIALIST (or if I have an opening earlier [...] call and advise. documented in this encounter [facility] 08-10-2021 Note HNO ID: [id number] Author: Faye Beltran MD Service: ? Author Type: Physician Type: Progress Notes Filed: 08/10/2021 1:47 PM Note Text: [facility] Name: Paulina Gotti Sigifredo : 1965 Purpose: [...] steroids. She has not reestablished with a Street Photographer. She reports that when she takes the Percocet, it is not strong enough and that it wears off quickly. She has been diagnosed with peripheral neuropathy by Electrodiagnostic Study. HPI from 06/2021: Paulina Mei is a 55 year old female who presents for new patient evaluation joint pain. Patient has a longstanding history of rheumatoid arthritis. She is followed with [facility] rheumatology in the past last being [...] She is currently not following with any director of professional services. She reports she is on daily steroids [...] day. We discussed a possible rotation to [place] in the future. However I had like [...] 08/10/2021 by Leticia (more content not included)... [facility] 06-22-2021 Note HNO ID: [id number] Author: Jere Puentes APRN.FIELD APPLICATIONS SPECIALIST Service: ? Author Type: Nurse Practitioner Type: Progress Notes Filed: 06/22/2021 4:13 PM Note Text: [facility] Phone: Date of Evaluation: 06/22/2021 Patient Name: Paulina Mei : 1965 Subjective: Patient presents with: New Patient: All over pain . HPI: Paulina Mei is a 55 year old female who presents for new patient evaluation joint pain. Patient has a longstanding history of rheumatoid arthritis. She is followed with [facility] rheumatology in the past last being [...] She is currently not following with any director of professional services. She reports she is on daily steroids [...] Continuous Intervention/Comfort measure Medication Medication Pain Assessment (RN/TRADE SALES ASSISTANT) - - OARRS Report: PDMP website checked [...] - Polyneuropathy in other diseases classified elsewhere ([facility]) - Recurrent major depression in partial remission ([facility]) 02/29/2020 - Rheumatoid arthritis(714.0) - Systemic lupus [...] gastric bypass) - (more content not included)... [facility] 06-22-2021 Note HNO ID: [id number] Author: Rupinder Simon Service: ? Author Type: [...] - Polyneuropathy in other diseases classified elsewhere ([facility]) - Recurrent major depression in partial remission ([facility]) 02/29/2020 - Rheumatoid arthritis(714.0) - Systemic lupus [...] no insulin Objective LMP 02/05/2008 Physical Exam [facility] 03-27-2021 History of Presen t illness Narrative [...] 2021 6:20 PM documented in this encounter [facility] 11-11-2018 History of Past i llness Narrative [...] of this encounter (statuses as of 11/23/2021) [facility] History of Past illness Narrative* Problem Noted [...] of this encounter (statuses as of 11/23/2021) [facility] Narrative* Problem Noted [...] of this encounter (statuses as of 11/28/2021) [facility] Narrative* Problem Noted [...] of this encounter (statuses as of 11/29/2021) [facility] Narrative* Problem Noted [...] of this encounter (statuses as of 12/05/2021) [facility] Narrative* Problem Noted [...] of this encounter (statuses as of 12/06/2021) [facility] Narrative* Problem Noted [...] of this encounter (statuses as of 12/23/2021) [facility] Narrative* Problem Noted [...] of this encounter (statuses as of 12/26/2021) [facility] Narrative* Problem Noted [...] of this encounter (statuses as of 12/29/2021) [facility] Narrative* Problem Noted [...] of this encounter (statuses as of 01/02/2022) [facility] Narrative* Problem Noted [...] of this encounter (statuses as of 01/04/2022) [facility] N[facility]ative* Problem Noted [...] of this encounter (statuses as of 02/02/2022) [facility] Narrative* Problem Noted [...] of this encounter (statuses as of 03/02/2022) [facility] N[facility]ative* Problem Noted [...] of this encounter (statuses as of 03/04/2022) [facility] Narrative* Problem Noted [...] of this encounter (statuses as of 03/06/2022) [facility] N[facility]* Problem Noted [...] of this encounter (statuses as of 03/07/2022) [facility] N[facility]* Problem Noted [...] of this encounter (statuses as of 03/15/2022) [facility] N[facility]* Problem Noted [...] of this encounter (statuses as of 04/19/2022) [facility]* Problem Noted [...] of this encounter (statuses as of 05/07/2022) [facility] N[facility]* Problem Noted [...] of this encounter (statuses as of 05/09/2022) [facility] N[facility]ative* Problem Noted [...] of this encounter (statuses as of 05/15/2022) [facility] N[facility]* Problem Noted [...] of this encounter (statuses as of 05/21/2022) [facility] N[facility]* Problem Noted [...] of this encounter (statuses as of 05/25/2022) [facility]* Problem Noted [...] of this encounter (statuses as of 05/28/2022) [facility]* Problem Noted [...] of this encounter (statuses as of 06/29/2022) [facility]* Problem Noted [...] of this encounter (statuses as of 07/04/2022) [facility]* Problem Noted [...] of this encounter (statuses as of 07/04/2022) [facility]* Problem Noted [...] of this encounter (statuses as of 07/09/2022) [facility]* Problem Noted [...] of this encounter (statuses as of 07/12/2022) [facility]* Problem Noted [...] of this encounter (statuses as of 07/12/2022) [facility]* Problem Noted [...] of this encounter (statuses as of 07/17/2022) [facility]* Problem Noted [...] of this encounter (statuses as of 07/19/2022) [facility]* Problem Noted [...] of this encounter (statuses as of 07/21/2022) [facility]* Problem Noted [...] of this encounter (statuses as of 07/24/2022) [facility]* Problem Noted [...] of this encounter (statuses as of 07/27/2022) [facility]* Problem Noted [...] of this encounter (statuses as of 09/04/2022) [facility]* Problem Noted [...] of this encounter (statuses as of 09/05/2022) [facility]* Problem Noted [...] of this encounter (statuses as of 09/06/2022) [facility]* Problem Noted [...] of this encounter (statuses as of 09/19/2022) [facility]* Problem Noted [...] of this encounter (statuses as of 09/27/2022) [facility]* Problem Noted [...] of this encounter (statuses as of 10/09/2022) [facility]* Problem Noted [...] of this encounter (statuses as of 10/11/2022) [facility]* Problem Noted [...] of this encounter (statuses as of 11/01/2022) [facility]* Problem Noted [...] of this encounter (statuses as of 11/08/2022) [facility]* Problem Noted [...] of this encounter (statuses as of 11/09/2022) [facility]* Problem Noted [...] of this encounter (statuses as of 11/10/2022) [facility]* Problem Noted [...] of this encounter (statuses as of 11/14/2022) [facility]* Problem Noted [...] of this encounter (statuses as of 11/28/2022) [facility]* Problem Noted [...] of this encounter (statuses as of 12/27/2022) [facility]* Problem Noted [...] of this encounter (statuses as of 12/27/2022) [facility]* Problem Noted [...] of this encounter (statuses as of 02/08/2023) [facility]* Problem Noted [...] of this encounter (statuses as of 02/14/2023) [facility]* Problem Noted [...] of this encounter (statuses as of 02/25/2023) [facility]* Problem Noted [...] of this encounter (statuses as of 03/01/2023) [facility]* Problem Noted [...] of this encounter (statuses as of 03/12/2023) [facility]* Problem Noted [...] of this encounter (statuses as of 04/13/2023) [facility]* Problem Noted [...] of this encounter (statuses as of 04/15/2023) [facility]* Problem Noted [...] of this encounter (statuses as of 06/08/2023) [facility]* Problem Noted [...] of this encounter (statuses as of 06/13/2023) [facility]* Problem Noted [...] of this encounter (statuses as of 06/14/2023) [facility]* Problem Noted [...] of this encounter (statuses as of 07/09/2023) [facility]* Problem Noted [...] of this encounter (statuses as of 07/09/2023) [facility]* Problem Noted [...] of this encounter (statuses as of 07/24/2023) [facility]* Problem Noted [...] of this encounter (statuses as of 07/27/2023) [facility]* Problem Noted [...] of this encounter (statuses as of 08/05/2023) [facility]* Problem Noted [...] of this encounter (statuses as of 11/24/2023) [facility] foundation note* Diagnosis Rheumatoid arthritis involving multiple sites, unspecified whether rheumatoid factor present (HCC)- Primary Osteoporosis, unspecified osteoporosis type, unspecified pathological fracture presence vermin 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 prescription 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 use Lumbar spondylosis Lumbosacral spondylosis without myelopathy Primary osteoarthritis of right knee Primary localized osteoarthrosis, lower leg Fibromyalgia Mylagia and myositis, unspecified Rheumatoid arthritis involving both hands with positive rheumatoid factor (HCC) [facility] Osteoporosis, unspecified osteoporosis type, unspecified pathological fracture presence [facility] vermin 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 prescription opiate use Rheumatoid arthritis involving multiple sites, unspecified whether rheumatoid factor present (HCC) Rheumatoid arthritis involving both hands with positive rheumatoid factor (HCC) [facility] Diagnosis Fibromyalgia Mylagia and myositis, unspecified Muscle spasm Spasm of muscle [facility] Diagnosis Acute pain of right knee- Primary [facility] Diagnosis Injury of right knee, initial encounter- Primary Chronic insomnia Insomnia, unspecified Sprain of lateral collateral ligament of right knee, initial encounter Knee effusion, right Effusion of lower leg joint Pre-ulcerative calluses Corns and callosities Rheumatoid arthritis involving multiple sites with positive rheumatoid factor (HCC) Vomiting and diarrhea Vomiting alone [facility] Diagnosis Chronic insomnia- Primary Insomnia, unspecified [facility] Diagnosis Decreased urination- Primary Oliguria and anuria [facility] Diagnosis At increased risk of exposure to COVID-19 virus- Primary Acute upper respiratory infection, unspecified [facility] Diagnosis Fibromyalgia Mylagia and myositis, unspecified Muscle spasm Spasm of muscle [facility] Diagnosis Encounter for screening mammogram for breast cancer documented in this encounter [facility] note* Diagnosis Chronic insomnia- Primary Insomnia, unspecified documented in this encounter [facility] note* Diagnosis Fibromyalgia Mylagia and myositis, unspecified Muscle spasm Spasm of muscle documented in this encounter [facility] note* Diagnosis Fibromyalgia Mylagia and myositis, unspecified Muscle spasm Spasm of muscle [facility]* Diagnosis Onset Date Resolution Status Hypocalcemia acute Intractable pain acute Rheumatoid arthritis flare a cute Chronic depression chronic Chronic migraine chronic Fibromyalgia chronic Hypothyroidism chronic Iron deficiency anemia chron ic Vitamin B12 deficiency chron [facility] Work Phone: Evaluation note* Diagnosis Onset Date Resolution Status Intractable pain acute Rheumatoid arthritis flare a cute Chronic depression chronic Chronic migraine chronic Fibromyalgia chronic Hypothyroidism chronic Iron deficiency anemia chron ic Vitamin B12 deficiency chron ic Debility acute Insomnia acute Rheumatoid arthritis flare a cute Chronic depression chronic Chronic migraine chronic Fibromyalgia chronic Hypothyroidism [facility] Work Phone: Evaluation note* Diagnosis Encounter for support and coordination of transition of care- Primary Spinal stenosis, lumbar region with neurogenic claudication Recurrent major depression in partial remission (HCC) Major depressive disorder, recurrent episode, in partial or unspecified remission Fibromyalgia Mylagia and myositis, unspecified Muscle spasm Spasm of muscle Depression, unspecified depression type longterm prescription opiate use Rheumatoid arthritis involving multiple sites, unspecified whether rheumatoid factor present (HCC) Rheumatoid arthritis involving both hands with positive rheumatoid factor (HCC) Iron deficiency anemia, unspecified iron deficiency anemia type Hypokalemia Hypopotassemia Hypothyroidism, unspecified type Chronic insomnia Insomnia, unspecified [facility]* Diagnosis Rheumatoid arthritis involving multiple sites with positive rheumatoid factor (HCC)- Primary [facility]* Diagnosis Spinal stenosis, lumbar region with neurogenic claudication Rheumatoid arthritis involving multiple sites, unspecified whether rheumatoid factor present (HCC) documented in this encounter [facility] note* Diagnosis Rheumatoid arthritis involving multiple sites with positive rheumatoid factor (HCC)- Primary documented in this encounter [facility] note* Diagnosis Rheumatoid arthritis involving multiple sites with positive rheumatoid factor (HCC)- Primary [facility]* Diagnosis Fibromyalgia Mylagia and myositis, unspecified Muscle spasm Spasm of muscle [facility]* Diagnosis Rheumatoid arthritis involving multiple sites with positive rheumatoid factor (HCC) [facility]* Diagnosis Rheumatoid arthritis involving multiple sites with positive rheumatoid factor (HCC) [facility]* Diagnosis Fibromyalgia Mylagia and myositis, unspecified Muscle spasm Spasm of muscle [facility]* Diagnosis Fibromyalgia Mylagia and myositis, unspecified Muscle spasm Spasm of muscle [facility]* Diagnosis Fibromyalgia Mylagia and myositis, unspecified Muscle spasm Spasm of muscle [facility]* Diagnosis Acute pain of both knees- Primary Hypokalemia Hypopotassemia Hypothyroidism, unspecified type Hyperlipidemia with target LDL less than 100 Other and unspecified hyperlipidemia Vitamin B 12 deficiency Other B-complex deficiencies Iron deficiency anemia, unspecified iron deficiency anemia type History of gastric bypass Bariatric surgery status Disorder of bone, unspecified [facility]* Diagnosis Encounter for screening mammogram for breast cancer [facility]* Diagnosis B12 deficiency- Primary Other B-complex deficiencies Vitamin D deficiency Unspecified vitamin D deficiency Zinc deficiency Mineral deficiency, not elsewhere classified Hypothyroidism, unspecified type [facility]* Diagnosis Hypothyroidism, unspecified type [facility]* Diagnosis Confusion Unspecified psychosis Forgetfulness Other general symptoms Headache, unspecified headache type [facility]* Diagnosis Abnormal MRI- Primary Other nonspecific (abnormal) findings on radiological and other examinations of body structure [facility]* Diagnosis Nausea- Primary Nausea alone URI, acute Acute upper respiratory infections of unspecified site [facility]* Diagnosis Acute pain of right knee [facility] noteNo assessment information availableWMadison Health Work Phone: Hospital Discharge instructions Additional Instructions Discharge home with sister 07/04/2022, [facility] PT/OT/SN, Wheelchair.[facility] Work Phone: [facility] (narrative)* Diagnostic Procedure Only (Urgent) - Pending Review Specialty Diagnoses / Procedures Referred By Contac t Referred To Contact XR IMAGING Diagnoses Acute pain of right knee Procedures XR KNEE GENERAL 4V AP BOTH/PA BOTH/LAT/MERC RIGHT RADIOLOGIC EXAM KNEE COMPLETE 4/MORE VIEWS Erna Kelley APRN.CNP [address] [place] [address] Xr Imaging Referral ID Status Reason Start Date Expiration Date Visits Requested Visits Authorized [id number] Pending Review Auto-Generat ed Referral 12/25/2021 01/22/2023 1 1 [facility] for referral (narrative)* Diagnostic Procedure Only (Routine) - Pending Review Specialty Diagnoses / Procedures Referred By Contac t Referred To Contact BR IMAGING Diagnoses Encounter for screening mammogram for breast cancer Procedures WILVER SCREENING SCREENING MAMMOGRAPHY BI 2-VIEW BREAST INC Jocelyn Lincoln PA-C [address] [id number] [facility] [address] [place] [address] Referral ID Status Reason Start Date Expiration Date Visits Requested Visits Authorized [id number] Pending Review Auto-Generat ed Referral 05/02/2022 06/01/2023 1 1 [facility] for referral (narrative)* Diagnostic Procedure Only (Routine) - Pending Review Specialty Diagnoses / Procedures Referred By Contac t Referred To Contact BR IMAGING Diagnoses Encounter for screening mammogram for breast cancer Procedures WILVER SCREENING SCREENING MAMMOGRAPHY BI 2-VIEW BREAST INC Jocelyn Lincoln PA-C [address] [place] [address] [facility] [address] [place] [address] Referral ID Status Reason Start Date Expiration Date Visits Requested Visits Authorized [id number] Pending Review Auto-Generat ed Referral 04/10/2023 05/09/2024 1 1 [facility] for referral (narrative)* Diagnostic Procedure Only (Urgent) - Closed Specialty Diagnoses / Procedures Referred By Contac t Referred To Contact XR IMAGING Diagnoses Acute pain of right knee Procedures XR KNEE GENERAL 4V AP BOTH/PA BOTH/LAT/MERC RIGHT RADIOLOGIC EXAM KNEE COMPLETE 4/MORE VIEWS Erna Kelley, BOBJ DEVELOPER.FIELD APPLICATIONS SPECIALIST [address] [place] [address] [place] [address] Referral ID Status Reason Start Date Expiration Date V isits Requested Visits Authorized [id number] Closed Auto-Generate d Referral 12/25/2021 01/22/2023 1 1 [facility] for referral (narrative)No reason for referral information availableWMadison Health Work Phone: [facility] for visit Narrative* Diagnostic Procedure Only (Routine) - Closed Specialty Diagnoses / Procedures Referred By Contac t Referred To Contact XR IMAGING Diagnoses Acute pain of both knees Procedures XR KNEE GENERAL 4V AP BOTH/PA BOTH/LAT/MERC BILATERAL RADIOLOGIC EXAM KNEE COMPLETE 4/MORE VIEWS Marsha Macias, BOBJ DEVELOPER.FIELD APPLICATIONS SPECIALIST [address] [place] [address] [place] [address] Referral ID Status Reason Start Date Expiration Date V isits Requested Visits Authorized [id number] Closed Auto-Generate d Referral 02/06/2023 03/07/2024 1 1 [facility] for visit Narrative* Diagnostic Procedure Only (Urgent) - Closed Specialty Diagnoses / Procedures Referred By Contac t Referred To Contact XR IMAGING Diagnoses Acute pain of right knee Procedures XR KNEE GENERAL 4V AP BOTH/PA BOTH/LAT/MERC RIGHT RADIOLOGIC EXAM KNEE COMPLETE 4/MORE VIEWS Erna Kelley, BOBJ DEVELOPER.FIELD APPLICATIONS SPECIALIST [address] [place] [address] [place] [address] Referral ID Status Reason Start Date Expiration Date V isits Requested Visits Authorized [id number] Closed Auto-Generate d Referral 12/25/2021 01/22/2023 1 1 [facility] Reason for Referral Specialty Diagnoses / Procedures Referred By Contac t Referred To Contact Diagnoses Vomiting and diarrhea Jocelyn Wolff PA-C [address] [place] [address] Referral ID Status Reason Start Date Expiration Date Visits Re quested Visits Authorized [id number] Closed 1 1 Specialty Diagnoses / Procedures Referred By Contac t Referred To Contact Podiatry Diagnoses Pre-ulcerative calluses Procedures CONSULT TO PODIATRY OFFICE/OUTPATIENT [facility] 60-74 MINUTES Jocelyn Wolff PA-C [address] [place] [address] Referral ID Status Reason Start Date Expiration Date Visits Requested Visits Authorized [id number] Authorized PCP Requested Referral 12/26/2021 12/26/2022 1 1 Specialty Diagnoses / Procedures Referred By Contac t Referred To Contact Diagnoses Chronic insomnia Procedures CONSULT TO SLEEP MEDICINE - ADULT OFFICE/OUTPATIENT [facility] 60-74 MINUTES Jocelyn Wolff PA-C [address] [place] [address] Referral ID Status Reason Start Date Expiration Date Visits Requested Visits Authorized [id number] Authorized PCP Requested Referral 05/15/2022 05/15/2023 1 1 Specialty Diagnoses / Procedures Referred By Contac t Referred To Contact Pain Management Diagnoses Spinal stenosis, lumbar region with neurogenic claudication Rheumatoid arthritis involving multiple sites, unspecified whether rheumatoid factor present (HCC) Rheumatoid arthritis involving both hands with positive rheumatoid factor (HCC) Procedures CONSULT TO PAIN MGT OFFICE/OUTPATIENT [facility] 60-74 MINUTES Jocelyn Wolff PA-C [address] [place] [address] Referral ID Status Reason Start Date Expiration Date Visits Requested Visits Authorized [id number] Authorized PCP Requested Referral 07/03/2022 07/03/2023 1 1 Specialty Diagnoses / Procedures Referred By Contac t Referred To Contact Pain Management Diagnoses Spinal stenosis, lumbar region with neurogenic claudication Fibromyalgia Muscle spasm Rheumatoid arthritis involving multiple sites, unspecified whether rheumatoid factor present (HCC) Rheumatoid arthritis involving both hands with positive rheumatoid factor (HCC) Procedures CONSULT TO PAIN MGT OFFICE/OUTPATIENT [facility] 60-74 MINUTES Jocelyn Wolff PA-C [address] [place] [address] Referral ID Status Reason Start Date Expiration Date Visits Requested Visits Authorized [id number] Authorized PCP Requested Referral 07/03/2022 07/03/2023 1 1 Specialty Diagnoses / Procedures Referred By Contac t Referred To Contact Orthopedics Diagnoses Acute pain of both knees Procedures CONSULT TO ORTHOPAEDICS OFFICE/OUTPATIENT [facility] 60-74 MINUTES Marsha Macias APRN.FIELD APPLICATIONS SPECIALIST [address] [id number] Referral ID Status Reason Start Date Expiration Date Visits Requested Visits Authorized [id number] Authorized PCP Requested Referral 02/06/2023 02/06/2024 1 1 Specialty Diagnoses / Procedures Referred By Contac t Referred To Contact XR IMAGING Diagnoses Acute pain of both knees Procedures XR KNEE GENERAL 4V AP BOTH/PA BOTH/LAT/MERC BILATERAL RADIOLOGIC EXAM KNEE COMPLETE 4/MORE VIEWS Marsha Macias APRN.FIELD APPLICATIONS SPECIALIST [address] [place] [address] Xr Imaging Referral ID Status Reason Start Date Expiration Date Visits Requested Visits Authorized [id number] Authorized Auto-Generat ed Referral 02/06/2023 03/07/2024 1 1 Specialty Diagnoses / Procedures Referred By Contac t Referred To Contact MR IMAGING Diagnoses Confusion Forgetfulness Headache, unspecified headache type Procedures MRI BRAIN WO IVCON MRI BRAIN BRAIN STEM W/O CONTRAST MATERIAL Marsha Macias APRN.FIELD APPLICATIONS SPECIALIST [address] [place] [address] [place] [address] Referral ID Status Reason Start Date Expiration Date V isits Requested Visits Authorized [id number] Closed Auto-Generate d Referral 06/04/2023 07/03/2024 1 1 Specialty Diagnoses / Procedures Referred By Contac t Referred To Contact Dentistry Diagnoses Abnormal MRI Procedures CONSULT TO DENTISTRY OFFICE/OUTPATIENT [facility] 60-74 MINUTES Marsha Macias APRN.FIELD APPLICATIONS SPECIALIST [address] [place] [address] Referral ID Status Reason Start Date Expiration Date Visits Requested Visits Authorized [id number] Pending Review PCP Requested Referral 07/05/2023 07/04/2024 1 1 Specialty Diagnoses / Procedures Referred By Contac t Referred To Contact Marsha Macias APRN.[employer] APPLICATION[employer] SPECIALIST [address] [place] [address] Referral ID Status Reason Start Date Expiration Date V isits Requested Visits Authorized [id number] Pending Review 1 1 Health Concerns Infection [...] Will No June 14 4:46am Power of Java Programming Professor No June 14, 2022 4:46am Advance Directive Response Recorded Date/ Time Advance Directives No September 15, 2016 5:22pm Living Will No June 15 3:19pm Power of Java Programming Professor No June 15, 2022 3:19pm Advance Directive Response Recorded Date/ Time Advance Directives No September 15, 2016 4:22pm Living Will No August 04 9:48am Power of Java Programming Professor No August 04, 2022 9:48am Advance Directive [...] or prosecute any alcohol or drug abuse patient.[facility] the event this information is protected by the Federal Confidentiality of Alcohol and Drug Abuse Patient Records regulations: The Federal rules restrict any use of the information to criminally investigate or prosecute any alcohol or drug abuse patient.[facility] the event this information is protected by the Federal Confidentiality of Alcohol and Drug Abuse Patient Records regulations: The Federal rules restrict any use of the information to criminally investigate or prosecute any alcohol or drug abuse patient.[facility] the event this information is protected by the Federal Confidentiality of Alcohol and Drug Abuse Patient Records regulations: The Federal rules restrict any use of the information to criminally investigate or prosecute any alcohol or drug abuse patient.[facility] the event this information is protected by the Federal Confidentiality of Alcohol and Drug Abuse Patient Records regulations: The Federal rules restrict any use of the information to criminally investigate or prosecute any alcohol or drug abuse patient.[facility] the event this information is protected by the Federal Confidentiality of Alcohol and Drug Abuse Patient Records regulations: The Federal rules restrict any use of the information to criminally investigate or prosecute any alcohol or drug abuse patient.[facility] the event this information is protected by the Federal Confidentiality of Alcohol and Drug Abuse Patient Records regulations: The Federal rules restrict any use of the information to criminally investigate or prosecute any alcohol or drug abuse patient.[facility] the event this information is protected by the Federal Confidentiality of Alcohol and Drug Abuse Patient Records regulations: The Federal rules restrict any use of the information to criminally investigate or prosecute any alcohol or drug abuse patient.[facility] the event this information is protected by the Federal Confidentiality of Alcohol and Drug Abuse Patient Records regulations: The Federal rules restrict any use of the information to criminally investigate or prosecute any alcohol or drug abuse patient.[facility] the event this information is protected by the Federal Confidentiality of Alcohol and Drug Abuse Patient Records regulations: The Federal rules restrict any use of the information to criminally investigate or prosecute any alcohol or drug abuse patient.[facility] the event this information is protected by the Federal Confidentiality of Alcohol and Drug Abuse Patient Records regulations: The Federal rules restrict any use of the information to criminally investigate or prosecute any alcohol or drug abuse patient.[facility] the event this information is protected by the Federal Confidentiality of Alcohol and Drug Abuse Patient Records regulations: The Federal rules restrict any use of the information to criminally investigate or prosecute any alcohol or drug abuse patient.[facility] the event this information is protected by the Federal Confidentiality of Alcohol and Drug Abuse Patient Records regulations: The Federal rules restrict any use of the information to criminally investigate or prosecute any alcohol or drug abuse patient.[facility] the event this information is protected by the Federal Confidentiality of Alcohol and Drug Abuse Patient Records regulations: The Federal rules restrict any use of the information to criminally investigate or prosecute any alcohol or drug abuse patient.[facility] the event this information is protected by the Federal Confidentiality of Alcohol and Drug Abuse Patient Records regulations: The Federal rules restrict any use of the information to criminally investigate or prosecute any alcohol or drug abuse patient.[facility] HospitalIn the event this information is protected by the Federal Confidentiality of Alcohol and Drug Abuse Patient Records regulations: The Federal rules restrict any use of the information to criminally investigate or prosecute any alcohol or drug abuse patient.[facility] the event this information is protected by the Federal Confidentiality of Alcohol and Drug Abuse Patient Records regulations: The Federal rules restrict any use of the information to criminally investigate or prosecute any alcohol or drug abuse patient.[facility] the event this information is protected by the Federal Confidentiality of Alcohol and Drug Abuse Patient Records regulations: The Federal rules restrict any use of the information to criminally investigate or prosecute any alcohol or drug abuse patient.[facility] the event this information is protected by the Federal Confidentiality of Alcohol and Drug Abuse Patient Records regulations: The Federal rules restrict any use of the information to criminally investigate or prosecute any alcohol or drug abuse patient.[facility] HospitalIn the event this information is protected by the Federal Confidentiality of Alcohol and Drug Abuse Patient Records regulations: The Federal rules restrict any use of the information to criminally investigate or prosecute any alcohol or drug abuse patient.[facility] HospitalIn the event this information is protected by the Federal Confidentiality of Alcohol and Drug Abuse Patient Records regulations: The Federal rules restrict any use of the information to criminally investigate or prosecute any alcohol or drug abuse patient.[facility] HospitalIn the event this information is protected by the Federal Confidentiality of Alcohol and Drug Abuse Patient Records regulations: The Federal rules restrict any use of the information to criminally investigate or prosecute any alcohol or drug abuse patient.[facility] HospitalIn the event this information is protected by the Federal Confidentiality of Alcohol and Drug Abuse Patient Records regulations: The Federal rules restrict any use of the information to criminally investigate or prosecute any alcohol or drug abuse patient.[facility] HospitalIn the event this information is protected by the Federal Confidentiality of Alcohol and Drug Abuse Patient Records regulations: The Federal rules restrict any use of the information to criminally investigate or prosecute any alcohol or drug abuse patient.[facility] HospitalIn the event this information is protected by the Federal Confidentiality of Alcohol and Drug Abuse Patient Records regulations: The Federal rules restrict any use of the information to criminally investigate or prosecute any alcohol or drug abuse patient.[facility] HospitalIn the event this information is protected by the Federal Confidentiality of Alcohol and Drug Abuse Patient Records regulations: The Federal rules restrict any use of the information to criminally investigate or prosecute any alcohol or drug abuse patient.[facility] HospitalIn the event this information is protected by the Federal Confidentiality of Alcohol and Drug Abuse Patient Records regulations: The Federal rules restrict any use of the information to criminally investigate or prosecute any alcohol or drug abuse patient.[facility] HospitalIn the event this information is protected by the Federal Confidentiality of Alcohol and Drug Abuse Patient Records regulations: The Federal rules restrict any use of the information to criminally investigate or prosecute any alcohol or drug abuse patient.[facility] HospitalIn the event this information is protected by the Federal Confidentiality of Alcohol and Drug Abuse Patient Records regulations: The Federal rules restrict any use of the information to criminally investigate or prosecute any alcohol or drug abuse patient.[facility] HospitalIn the event this information is protected by the Federal Confidentiality of Alcohol and Drug Abuse Patient Records regulations: The Federal rules restrict any use of the information to criminally investigate or prosecute any alcohol or drug abuse patient.[facility] HospitalIn the event this information is protected by the Federal Confidentiality of Alcohol and Drug Abuse Patient Records regulations: The Federal rules restrict any use of the information to criminally investigate or prosecute any alcohol or drug abuse patient.[facility] HospitalIn the event this information is protected by the Federal Confidentiality of Alcohol and Drug Abuse Patient Records regulations: The Federal rules restrict any use of the information to criminally investigate or prosecute any alcohol or drug abuse patient.[facility] HospitalIn the event this information is protected by the Federal Confidentiality of Alcohol and Drug Abuse Patient Records regulations: The Federal rules restrict any use of the information to criminally investigate or prosecute any alcohol or drug abuse patient.[facility] HospitalIn the event this information is protected by the Federal Confidentiality of Alcohol and Drug Abuse Patient Records regulations: The Federal rules restrict any use of the information to criminally investigate or prosecute any alcohol or drug abuse patient.[facility] HospitalIn the event this information is protected by the Federal Confidentiality of Alcohol and Drug Abuse Patient Records regulations: The Federal rules restrict any use of the information to criminally investigate or prosecute any alcohol or drug abuse patient.[facility] HospitalIn the event this information is protected by the Federal Confidentiality of Alcohol and Drug Abuse Patient Records regulations: The Federal rules restrict any use of the information to criminally investigate or prosecute any alcohol or drug abuse patient.[facility] HospitalIn the event this information is protected by the Federal Confidentiality of Alcohol and Drug Abuse Patient Records regulations: The Federal rules restrict any use of the information to criminally investigate or prosecute any alcohol or drug abuse patient.[facility] HospitalIn the event this information is protected by the Federal Confidentiality of Alcohol and Drug Abuse Patient Records regulations: The Federal rules restrict any use of the information to criminally investigate or prosecute any alcohol or drug abuse patient.[facility] HospitalIn the event this information is protected by the Federal Confidentiality of Alcohol and Drug Abuse Patient Records regulations: The Federal rules restrict any use of the information to criminally investigate or prosecute any alcohol or drug abuse patient.[facility] HospitalIn the event this information is protected by the Federal Confidentiality of Alcohol and Drug Abuse Patient Records regulations: The Federal rules restrict any use of the information to criminally investigate or prosecute any alcohol or drug abuse patient.[facility] HospitalIn the event this information is protected by the Federal Confidentiality of Alcohol and Drug Abuse Patient Records regulations: The Federal rules restrict any use of the information to criminally investigate or prosecute any alcohol or drug abuse patient.[facility] HospitalIn the event this information is protected by the Federal Confidentiality of Alcohol and Drug Abuse Patient Records regulations: The Federal rules restrict any use of the information to criminally investigate or prosecute any alcohol or drug abuse patient.[facility] HospitalIn the event this information is protected by the Federal Confidentiality of Alcohol and Drug Abuse Patient Records regulations: The Federal rules restrict any use of the information to criminally investigate or prosecute any alcohol or drug abuse patient.[facility] HospitalIn the event this information is protected by the Federal Confidentiality of Alcohol and Drug Abuse Patient Records regulations: The Federal rules restrict any use of the information to criminally investigate or prosecute any alcohol or drug abuse patient.[facility] HospitalIn the event this information is protected by the Federal Confidentiality of Alcohol and Drug Abuse Patient Records regulations: The Federal rules restrict any use of the information to criminally investigate or prosecute any alcohol or drug abuse patient.[facility] HospitalIn the event this information is protected by the Federal Confidentiality of Alcohol and Drug Abuse Patient Records regulations: The Federal rules restrict any use of the information to criminally investigate or prosecute any alcohol or drug abuse patient.[facility] HospitalIn the event this information is protected by the Federal Confidentiality of Alcohol and Drug Abuse Patient Records regulations: The Federal rules restrict any use of the information to criminally investigate or prosecute any alcohol or drug abuse patient.[facility] HospitalIn the event this information is protected by the Federal Confidentiality of Alcohol and Drug Abuse Patient Records regulations: The Federal rules restrict any use of the information to criminally investigate or prosecute any alcohol or drug abuse patient.[facility] HospitalIn the event this information is protected by the Federal Confidentiality of Alcohol and Drug Abuse Patient Records regulations: The Federal rules restrict any use of the information to criminally investigate or prosecute any alcohol or drug abuse patient.[facility] HospitalIn the event this information is protected by the Federal Confidentiality of Alcohol and Drug Abuse Patient Records regulations: The Federal rules restrict any use of the information to criminally investigate or prosecute any alcohol or drug abuse patient.[facility] HospitalIn the event this information is protected by the Federal Confidentiality of Alcohol and Drug Abuse Patient Records regulations: The Federal rules restrict any use of the information to criminally investigate or prosecute any alcohol or drug abuse patient.[facility] HospitalIn the event this information is protected by the Federal Confidentiality of Alcohol and Drug Abuse Patient Records regulations: The Federal rules restrict any use of the information to criminally investigate or prosecute any alcohol or drug abuse patient.[facility] HospitalIn the event this information is protected by the Federal Confidentiality of Alcohol and Drug Abuse Patient Records regulations: The Federal rules restrict any use of the information to criminally investigate or prosecute any alcohol or drug abuse patient.[facility] HospitalIn the event this information is protected by the Federal Confidentiality of Alcohol and Drug Abuse Patient Records regulations: The Federal rules restrict any use of the information to criminally investigate or prosecute any alcohol or drug abuse patient.[facility] HospitalIn the event this information is protected by the Federal Confidentiality of Alcohol and Drug Abuse Patient Records regulations: The Federal rules restrict any use of the information to criminally investigate or prosecute any alcohol or drug abuse patient.[facility] HospitalIn the event this information is protected by the Federal Confidentiality of Alcohol and Drug Abuse Patient Records regulations: The Federal rules restrict any use of the information to criminally investigate or prosecute any alcohol or drug abuse patient.[facility] HospitalIn the event this information is protected by the Federal Confidentiality of Alcohol and Drug Abuse Patient Records regulations: The Federal rules restrict any use of the information to criminally investigate or prosecute any alcohol or drug abuse patient.[facility] HospitalIn the event this information is protected by the Federal Confidentiality of Alcohol and Drug Abuse Patient Records regulations: The Federal rules restrict any use of the information to criminally investigate or prosecute any alcohol or drug abuse patient.[facility] HospitalIn the event this information is protected by the Federal Confidentiality of Alcohol and Drug Abuse Patient Records regulations: The Federal rules restrict any use of the information to criminally investigate or prosecute any alcohol or drug abuse patient.[facility] HospitalIn the event this information is protected by the Federal Confidentiality of Alcohol and Drug Abuse Patient Records regulations: The Federal rules restrict any use of the information to criminally investigate or prosecute any alcohol or drug abuse patient.[facility] HospitalIn the event this information is protected by the Federal Confidentiality of Alcohol and Drug Abuse Patient Records regulations: The Federal rules restrict any use of the information to criminally investigate or prosecute any alcohol or drug abuse patient.[facility] HospitalIn the event this information is protected by the Federal Confidentiality of Alcohol and Drug Abuse Patient Records regulations: The Federal rules restrict any use of the information to criminally investigate or prosecute any alcohol or drug abuse patient.[facility] HospitalIn the event this information is protected by the Federal Confidentiality of Alcohol and Drug Abuse Patient Records regulations: The Federal rules restrict any use of the information to criminally investigate or prosecute any alcohol or drug abuse patient.[facility] HospitalIn the event this information is protected by the Federal Confidentiality of Alcohol and Drug Abuse Patient Records regulations: The Federal rules restrict any use of the information to criminally investigate or prosecute any alcohol or drug abuse patient.[facility] HospitalIn the event this information is protected by the Federal Confidentiality of Alcohol and Drug Abuse Patient Records regulations: The Federal rules restrict any use of the information to criminally investigate or prosecute any alcohol or drug abuse patient.[facility] HospitalIn the event this information is protected by the Federal Confidentiality of Alcohol and Drug Abuse Patient Records regulations: The Federal rules restrict any use of the information to criminally investigate or prosecute any alcohol or drug abuse patient.[facility] HospitalIn the event this information is protected by the Federal Confidentiality of Alcohol and Drug Abuse Patient Records regulations: The Federal rules restrict any use of the information to criminally investigate or prosecute any alcohol or drug abuse patient.[facility] HospitalIn the event this information is protected by the Federal Confidentiality of Alcohol and Drug Abuse Patient Records regulations: The Federal rules restrict any use of the information to criminally investigate or prosecute any alcohol or drug abuse patient.[facility] HospitalIn the event this information is protected by the Federal Confidentiality of Alcohol and Drug Abuse Patient Records regulations: The Federal rules restrict any use of the information to criminally investigate or prosecute any alcohol or drug abuse patient.[facility] HospitalIn the event this information is protected by the Federal Confidentiality of Alcohol and Drug Abuse Patient Records regulations: The Federal rules restrict any use of the information to criminally investigate or prosecute any alcohol or drug abuse patient.[facility] Reason for Visit (unrecogniz ed section and content) Reason Comments Follow Up Rx Refills Specialty Diagnoses / Procedures Referred By Contwilton t Referred To Contact Pain Management / PAIN MANAGEMENT Diagnoses EST - follow up and medication refill Procedures EST PATIENT Jocelyn Wolff PA-C [address] [place] [address] Faye Beltran MD [facility] [place] [address] Referral ID Status Reason Start Date Expiration Date Visits Requested Visits Authorized [id number] Pending Review Patient Cleared - INN Insurance Found 11/23/2021 02/21/2022 1 1 Reason Comments Patient Update Reason Comments Medication Problem Reason Comments Prescription Refills Reason Onset Date Comments [facility] Outreach 12/06/2021 [facility] [place] [facility]SA Reason [...] Reason Comments Anxiety Reason Onset Date Comments [facility] Outreach 05/09/2022 HCC Reason Comments Patient Question Reason Onset Date Comments Refill Request 05/21/2022 Reason Onset Date Comments Refill Request 04/30/2022 Refill Request 05/21/2022 Refill Request 05/28/2022 Reason Comments home health calling Reason Comments Hospital Follow Up Reason Comments Medication Question Reason Onset Date Comments Refill Request 07/10/2022 Refill Request 07/12/2022 Reason Comments [facility], PT plan of care Reason Comments [facility] OT POC Reason Comments Patient Question Medication Request Reason Onset Date Comments Refill Request 08/30/2022 Reason Onset Date Comments Refill Request 09/04/2022 Reason Onset Date Comments [facility] 09/27/2022 [facility] [place] PCSA Reason Comments Consult Reason Onset Date Comments Refill Request 10/10/2022 Reason Onset Date Comments Refill Request 11/07/2022 Refill Request 11/08/2022 Reason Comments Opened In Error Reason Onset Date Comments Refill Request 11/10/2022 Reason Comments Medication issue Reason Comments Pain management reply. Reason Onset Date Comments [facility] 11/28/2022 [facility] [place] [facility]SA Reason Comments requesting [...] BRAIN STEM W/O CONTRAST MATERIAL Marsha Macias, BOBJ DEVELOPER.FIELD APPLICATIONS SPECIALIST [address] [facility] [place] [address] [place] [address] Referral ID Status Reason Start Date Expiration Date V isits Requested Visits Authorized [id number] Closed Auto-Generate d Referral 06/04/2023 07/03/2024 1 1 Reason Comments Results Reason Comments Medication Request Reason Onset Date Comments Refill Request 07/27/2023 Reason Onset Date Comments [facility] Outreach 08/05/2023 ACO CARE GAPS Reason Comments Vomiting Diarrhea x2 days, po ssible food poisoning Care Teams (unrecognized sec tion and content) Tile Mechanic Helper Relationship Specialty Start Date End Date Jocelyn Wolff PA-C [address] [place] [address] PCP - General Family Practice 01/13/21 Tile Mechanic Helper Relationship Specialty Start Date End Date Jocelyn Wolff PA-C [address] [place] [address] PCP - General Family Practice 01/13/21 Tile Mechanic Helper Relationship Specialty Start Date End Date Jocelyn Wolff PA-C [address] [place] [address] PCP - General Family Practice 01/13/21 Tile Mechanic Helper Relationship Specialty Start Date End Date Jocelyn Wolff PA-C [address] [place] [address] PCP - General Family Practice 01/13/21 Tile Mechanic Helper Relationship Specialty Start Date End Date Jocelyn Wolff PA-C [address] [place] [address] PCP - General Family Practice 01/13/21 Tile Mechanic Helper Relationship Specialty Start Date End Date Jocelyn Wolff PA-C [address] [facility] [address] PCP - General Family Practice 01/13/21 Tile Mechanic Helper Relationship Specialty Start Date End Date Jocelyn Wolff PA-C [address] [place] [address] PCP - General Family Practice 01/13/21 Tile Mechanic Helper Relationship Specialty Start Date End Date Jocelyn Wolff PA-C [address] [place] [address] PCP - General Family Practice 01/13/21 Tile Mechanic Helper Relationship Specialty Start Date End Date Jocelyn Wolff PA-C [address] [place] [address] PCP - General Family Practice 01/13/21 Tile Mechanic Helper Relationship Specialty Start Date End Date Jocelyn Wolff PA-C [address] [place] [address] PCP - General Family Practice 01/13/21 Tile Mechanic Helper Relationship Specialty Start Date End Date Jocelyn Wolff PA-C [address] [place] [address] PCP - General Family Practice 01/13/21 Tile Mechanic Helper Relationship Specialty Start Date End Date Jocelyn Wolff PA-C [address] [place] [address] PCP - General Family Practice 01/13/21 Tile Mechanic Helper Relationship Specialty Start Date End Date Jocelyn Wolff PA-C [address] [place] [address] PCP - General Family Practice 01/13/21 Tile Mechanic Helper Relationship Specialty Start Date End Date Jocelyn Wolff PA-C [address] [place] [address] PCP - General Family Practice 01/13/21 Tile Mechanic Helper Relationship Specialty Start Date End Date Jocelyn Wolff PA-C [address] [place] [address] PCP - General Family Practice 01/13/21 Tile Mechanic Helper Relationship Specialty Start Date End Date Jocelyn Wolff PA-C [address] [place] [address] PCP - General Family Practice 01/13/21 Tile Mechanic Helper Relationship Specialty Start Date End Date Jocelyn Wolff PA-C [address] [place] [address] PCP - General Family Medicine 01/13/21 Tile Mechanic Helper Relationship Specialty Start Date End Date Jocelyn Wolff PA-C [address] [place] [address] PCP - General Family Medicine 01/13/21 Tile Mechanic Helper Relationship Specialty Start Date End Date Jocelyn Wolff PA-C [address] [place] [address] PCP - General Family Medicine 01/13/21 Tile Mechanic Helper Relationship Specialty Start Date End Date Jocelyn Wolff PA-C [address] [place] [address] PCP - General Family Medicine 01/13/21 Tile Mechanic Helper Relationship Specialty Start Date End Date Jocelyn Wolff PA-C [address] [place] [address] PCP - General Family Medicine 01/13/21 Tile Mechanic Helper Relationship Specialty Start Date End Date Jocelyn Wolff PA-C [address] [place] [address] PCP - General Family Medicine 01/13/21 07/09/22 Tile Mechanic Helper Relationship Specialty Start Date End Date Jocelyn Wolff PA-C [address] [place] [address] PCP - General Family Medicine 01/13/21 07/09/22 Tile Mechanic Helper Relationship Specialty Start Date End Date Jocelyn Wolff PA-C [address] [place] [address] PCP - General Family Medicine 08/06/22 Tile Mechanic Helper Relationship Specialty Start Date End Date Jocelyn Wolff PA-C [address] [place] [address] PCP - General Family Medicine 08/06/22 Tile Mechanic Helper Relationship Specialty Start Date End Date Jocelyn Wolff PA-C [address] [place] [address] PCP - General Family Medicine 08/06/22 Tile Mechanic Helper Relationship Specialty Start Date End Date Jocelyn Wolff PA-C [address] [place] [address] PCP - General Family Medicine 08/06/22 Tile Mechanic Helper Relationship Specialty Start Date End Date Jocelyn Wolff PA-C [address] [place] [address] PCP - General Family Medicine 08/06/22 Tile Mechanic Helper Relationship Specialty Start Date End Date Jocelyn Wolff PA-C [address] [place] [address] PCP - General Family Medicine 08/06/22 Tile Mechanic Helper Relationship Specialty Start Date End Date Jocelyn Wolff PA-C [address] [place] [address] PCP - General Family Medicine 08/06/22 Tile Mechanic Helper Relationship Specialty Start Date End Date Jocelyn Wolff PA-C [address] [place] [address] PCP - General Family Medicine 08/06/22 Tile Mechanic Helper Relationship Specialty Start Date End Date Jocelyn Wolff PA-C [address] [place] [address] PCP - General Family Medicine 08/06/22 Tile Mechanic Helper Relationship Specialty Start Date End Date Jocelyn Wolff PA-C [address] [place] [address] PCP - General Family Medicine 08/06/22 Tile Mechanic Helper Relationship Specialty Start Date End Date Jocelyn Wolff PA-C [address] [place] [address] PCP - General Family Medicine 08/06/22 Tile Mechanic Helper Relationship Specialty Start Date End Date Jocelyn Wolff PA-C [address] [place] [address] PCP - General Family Medicine 08/06/22 Tile Mechanic Helper Relationship Specialty Start Date End Date Jocelyn Wolff PA-C [address] [place] [address] PCP - General Family Medicine 08/06/22 Tile Mechanic Helper Relationship Specialty Start Date End Date Jocelyn Wolff PA-C [address] [place] [address] PCP - General Family Medicine 08/06/22 Tile Mechanic Helper Relationship Specialty Start Date End Date Jocelyn Wolff PA-C [address] [place] [address] PCP - General Family Medicine 08/06/22 Tile Mechanic Helper Relationship Specialty Start Date End Date Jocelyn Wolff PA-C [address] [place] [address] PCP - General Family Medicine 08/06/22 Tile Mechanic Helper Relationship Specialty Start Date End Date Jocelyn Wolff PA-C [address] [place] [address] PCP - General Family Medicine 08/06/22 Tile Mechanic Helper Relationship Specialty Start Date End Date Jocelyn Wolff PA-C [address] [place] [address] PCP - General Family Medicine 08/06/22 Tile Mechanic Helper Relationship Specialty Start Date End Date Jocelyn Wolff PA-C [address] [place] [address] PCP - General Family Medicine 08/06/22 Tile Mechanic Helper Relationship Specialty Start Date End Date Jocelyn Wolff PA-C [address] [place] [address] PCP - General Family Medicine 08/06/22 Tile Mechanic Helper Relationship Specialty Start Date End Date Jocelyn Wolff PA-C [address] [place] [address] PCP - General Family Medicine 08/06/22 Tile Mechanic Helper Relationship Specialty Start Date End Date Jocelyn Wolff PA-C [address] [place] [address] PCP - General Family Medicine 08/06/22 Tile Mechanic Helper Relationship Specialty Start Date End Date Jocelyn Wolff PA-C [address] [place] [address] PCP - General Family Medicine 08/06/22 Tile Mechanic Helper Relationship Specialty Start Date End Date Jocelyn Wolff PA-C [address] [place] [address] PCP - General Family Medicine 08/06/22 Tile Mechanic Helper Relationship Specialty Start Date End Date Jocelyn Wolff PA-C [address] [place] [address] PCP - General Family Medicine 08/06/22 Tile Mechanic Helper Relationship Specialty Start Date End Date Jocelyn Wolff PA-C [address], [place] [address] PCP - General Family Medicine 08/06/22 09/09/23 Tile Mechanic Helper Relationship Specialty Start Date End Date Jocelyn Wolff PA-C [address] [facility], [place] [address] PCP - General Family Medicine 01/13/21 07/09/22 Tile Mechanic Helper Relationship Specialty Start Date End Date Jocelyn Wolff PA-C [address], [place] [address] PCP - General Family Medicine 01/13/21 07/09/22 [...] section and content) DATE CREATED AUTHOR 03/22/2022 [facility] DATE CREATED AUTHOR AUTHOR'S ORGANIZ ATION 11/24/2023 [facility] DATE CREATED AUTHOR AUTHOR'S ORGANIZ ATION 02/14/2025 [facility] Goals (unrecognized section and content) Goals may [...] BE BASED ON THE PRIMARY CLINICAL RECORDS. [facility] [email or web address] [facility]. provides no warranty or guarantee of the accuracy or completeness of information in this document.
== END | disposition home or self-care (01) ==
LOC: BFHLAB 15:12
PROVIDERS: PCP Nurse Practitioner Family; Visit Provider Nurse Practitioner Family
DX: N39.0 Urinary tract infection, site not specified (principal)
CPT/HCPCS: 87077; 87086; 87088; 87186

== ENCOUNTER 2025-04-19 16:33 | Emergency (ER) | payer MEDICARE, SELFPAY ==
[2025-04-19 16:35] VITALS: BP 152/135; PULSE 83; RESP 18; TEMP 36.4; O2SAT 99
--- NOTE | 2025-04-19 16:50 | ED.RN ---
PT INITIALLY CALM BUT STILL EXPRESSING PAIN WHEN TRIAGE INITIATED. DURING THE TRIAGE PROCESS PT LOOKS AROUND AND BECOMES TEARFUL SAYING THIS IS GOING TO TAKE FOREVER. SUPPORT PERSON WITH PATIENT IS ACTIVELY CONSOLING HER. PT STATES SHE NEEDS A BED.
--- NOTE | 2025-04-19 18:30 | RAD_ITS ---
PROCEDURE: KNEE 4 OR MORE VIEWS 04/19/2025 REASON FOR EXAM: PAIN TECHNIQUE: KNEE 4 OR MORE VIEWS Laterality: FINDINGS: No evidence acute fracture or dislocation. Severe degenerative changes of the knee. Suprapatellar knee joint effusion. RAD/Knee 4 or More Views IMPRESSION: Severe osteoarthrosis. Suprapatellar knee joint effusion. Reading Location: [id number]
--- NOTE | 2025-04-19 18:30 | RAD_ITS ---
PROCEDURE: LEFT FOOT MIN 3 VIEWS 04/19/2025 REASON FOR EXAM: PAIN TECHNIQUE: LEFT FOOT MIN 3 VIEWS COMPARISON: 01/12/2019 FINDINGS: No definite acute fracture is seen, although evaluation is somewhat limited due to marked diffuse qualitative osteopenia. Deformity of the digits with prominent hammertoe deformities of the 2nd through 5th MTP joints, severe hallux valgus deformity and inferolateral subluxation of the 1st MTP joint, and hyperextension of the 1st interphalangeal joint. Small calcaneal plantar spur. No marked soft tissue swelling or radiopaque foreign body is seen. RAD/Foot min 3 Views IMPRESSION: No definite acute fracture, although marked osteopenia limits sensitivity for s ubtle nondisplaced fractures. Severe hallux valgus and hammertoe deformities as described above. Reading Location: [id number]
[2025-04-19 18:43] LABS: Anion Gap 13 (5-15); BUN 16 mg/dL (4-19); BUN/Creat Ratio 25.3 RATIO (10-20); CRP 48.60 mg/L (0.0-3.0); Calcium,Total 8.6 mg/dL (7.6-11.0); Carbon Dioxide 18.3 mmol/L (21.0-32.0); Chloride 109 mmol/L (98-108); Glucose 118 mg/dL (70-99); Potassium 3.4 mmol/L (3.3-5.1)
[2025-04-19 18:45] LABS: Hematocrit 33.5 % (37-47); Hemoglobin 9.9 g/dL (12.0-15.0); Immature Granulocytes Count 0.020 X10^3/uL (0.0-0.0); Mean Corp Hgb Conc 29.6 g/dL (32-36); Mean Corpuscular Volume 76.0 fL (81-99); Mean Platelet Vol. 9.4 fl (6.2-12.0); NRBC Flagged by Analyzer 0 % (0-5); Platelet Count 311 K/mm3 (150-450); RBC Distribution Width CV 16.3 % (11.6-14.6); RBC Distribution Width SD 45.0 fl (35.1-43.9); Red Blood Count 4.41 M/mm3 (4.2-5.4); White Blood Count 4.7 K/mm3 (4.4-11.0)
--- NOTE | 2025-04-19 18:57 | EDS_ITS ---
HPI History of Present Illness Chief Complaint: Lower Extremity Injury Informant: patient Narrative Narrative: Presents nontraumatic pain left knee and left foot 1 week ago. Saw PCP office states did not know what it was it was being referred to podiatry with out patient x-rays. She was not feeling well therefore has not gotten the image studies. She is nondiabetic. Does have a history of lupus however not on any immunosuppressants. She has Lidoderm patch using on her knee. Reports swelling. No fever or chills. No history of similar. [facility] Medical History Hypocalcemia Neuropathy Fibromyalgia Lupus EDWARDS (nonalcoholic steatohepatitis) Osteoarthritis Rheumatoid arthritis Home Medications ?Medication ?Instructions ?Recorded ?Last Taken ?Type topiramate 100 mg tablet 200 mg PO BID seizures 06/2810/31/22 History buspirone 10 mg tablet 10 mg PO TID mental health 0 12/18/19 10/31/22 History trazodone 150 mg tablet 150 mg PO QHS sleep 06/14/22 10/31/22 History cephalexin 500 mg capsule 500 mg PO TID 7 days #21 cap s 11/01/22 Unknown Rx duloxetine 60 mg capsule,delayed 60 mg PO BID 11/01/22 10/31/22 History release levothyroxine 88 mcg tablet 88 mcg PO DAILY THYROID 10/31/22 History oxycodone-acetaminophen 5 mg-325 1 tab PO 4X/DAY PAIN 11/01/22 10/31/22 History mg tablet prednisone 10 mg tablet 10 mg PO DAILY #63 tabs 10/25 Unknown Rx oxycodone-acetaminophen 5 mg-325 1 tab PO Q6H PRN PRN Pain 3 days 04/19/25 Unknown Rx mg tablet #12 TABLETS Allergy/AdvReac Type Severity Reaction Status Date / Time hydrocodone bitartrate (From AdvReac Vomiting Verified 04/19/25 16:35 Vicodin) sulfamethoxazole (From AdvReac Vomiting Verified 04/19/25 16:35 Bactrim) trimethoprim (From Bactrim) AdvReac Vomiting Verified 04/19/25 16:35 Family History Mother COPD (chronic obstructive pulmonary disease) Hypertension Father Varicose veins of both lower extremities Surgical History History of Jason-en-Y gastric bypass History of cholecystectomy History of ovarian cystectomy H/O: hysterectomy Social History household members: other details: Lives with her sister who assists in her care. Smoking Status: Never smoker alcohol intake: never substance use type: does not use ROS ROS ED Constitutional Constitutional ED: Denies fever(s) Cardiovascular Cardiovascular: Denies chest pain Respiratory/Chest Respiratory/Chest: Denies cough Gastrointestinal Gastrointestinal: Denies diarrhea or vomiting Musculoskeletal Musculoskeletal: Reports other Details: Left knee left foot pain. Neurologic Neurologic: Denies weakness EXAM Physical Exam Const Vital Signs: 04/19/25 16:35 04/19/25 20:08 Temperature 97.6 F L 97.6 F L Temperature Source Temporal Pulse Rate 83 80 Respiratory Rate 18 18 Blood Pressure 152/135 H 140/78 H Blood Pressure Mean 140 98 Pulse Ox 99 99 Oxygen Delivery Method Room Air Positive well nourished and well developed General Appearance ED: well developed and NAD HEENT Reports moist mucous membranes normocephalic and atraumatic Eyes General Eye ED: Yes normal appearance of both eyes Neck full ROM Chest Wall Chest: Negative for tenderness Resp normal respiratory effort and normal air movement Effort and Inspection: symmetric chest movement; Negative for respiratory distress Cardio regular rate, regular rhythm and no murmurs Peripheral Pulses: pulses 2+ throughout GI normal to inspection, nondistended, normoactive bowel sounds and non-tender Palpation: Negative for guarding or rebound tenderness present Extremity Extremity Narrative: Left lower extremity: No hip pain. There is minor impact had suprapatellar. There is slight swelling to the knee there is pain with movement the knee there is no redness there is no warmth. No calf tenderness. Foot examination noted callus of the plantar aspect of foot there is some excoriation webspace 2nd and 3rd. There is no drainage there is no erythema. Right lower extremity also noted callus at the plantar aspect of the foot. No erythema or drainage. Neuro oriented x3 and no sensory deficits noted Sensorium / Orientation: awake and alert Skin Skin Narrative: See above MDM MDM MDM Narrative Medical decision making narrative: Interventions / MDM: Differential diagnosis: Left knee pain, left knee swelling, left foot pain, history of lupus Diagnosis considered but do not suspect: Septic knee however knee aspiration negative for any fluid return. My EKG interpretation: N/A Imaging independently reviewed and interpreted by myself: Left knee 4 view x- ray: Severe osteoarthritic changes medial compartment with mild suprapatellar effusion. Left foot x-ray: No fracture or effusion noted. This also read by radiology. External documents reviewed: N/A Test considered but not ordered:N/A ED course: Nontraumatic pain knee and foot. More pain in the knee worse with movement. She does have history of lupus however not on immunosuppressants. IV established for labs with inflammatory markers. IV morphine ordered. X-ray left knee and left foot for further evaluation. Labs white count 4.7. CRP 48 ESR 54. X-ray left knee severe arthritis medial compartment with suprapatellar joint effusion. Left foot x-ray negative. Discussed with patient nontraumatic pain for arthrocentesis for further rule out. She agrees. 1730: Written consent obtained. Risk and benefit discussed. Timeout performed. Betadine prep of the knee laterally to patellar ligament. Patient's knee placed in 40 degree position. Sterile gloves were used and changed. An 18- gauge needle on a 5 cc syringe advanced laterally, this was help with negative pressure there is no fluid. This was redirected a couple times and helped with no fluid. Patient discomfort however improved with needle removed. No blood loss noted. Bandage was placed over the wound. Dry knee aspiration. At this time we will place an Mani wrap and refer to orthopedics for her knee. She referred to podiatry for her foot with calluses. Prescription for Percocet for which she is tolerated the past sent to her phar jessica. All questions were answered. Re-evaluation: stable Disposition discussed with patient/family/significant other: Case discussed with consulting clinician: N/A This note was generated with ForeSee dictation software. It may contain incorrect words, spelling, and punctuation that were not noted in checking the note before signing. Lab Data Attestation: I reviewed the patient's lab results. Labs: Laboratory Results - last 24 hr 04/19/25 18:20 WBC 4.7 RBC 4.41 Hgb 9.9 L Hct 33.5 L MCV 76.0 L MCH 22.4 L MCHC 29.6 L RDW Std Deviation 45.0 H RDW Coeff of Neal 16.3 H Plt Count 311 MPV 9.4 Immature Gran % (Auto) 0.400 Neut % (Auto) 77.1 H Lymph % (Auto) 13.7 L Treasure % (Auto) 8.0 Eos % (Auto) 0.2 Baso % (Auto) 0.6 Absolute Neuts (auto) 3.7 Absolute Lymphs (auto) 0.65 L Nucleated RBC % 0 ESR 54 H Sodium 140 Potassium 3.4 Chloride 109 H Carbon Dioxide 18.3 L Anion Gap 13 BUN 16 Creatinine 0.64 L Est GFR (MDRD) Non-Af 102 BUN/Creatinine Ratio 25.3 H Glucose 118 H Calcium 8.6 C-React Prot Ext Range 48.60 H Radiography Diagnostic Testing: Clinical Impression(s) from Imaging Studies Foot X-Ray 04/19/25 18:30 IMPRESSION: No definite acute fracture, although marked osteopenia limits sensitivity for subtle nondisplaced fractures. Severe hallux valgus and hammertoe deformities as described above. Reading Location: [facility] Knee X-Ray 04/19/25 18:30 IMPRESSION: Severe osteoarthrosis. Suprapatellar knee joint effusion. Reading Location: [facility] Discharge Plan Triage Chief Complaint: Lower Extremity Injury ED Provider: Wilmer Rodriguez Dx/Rx/DC Orders Clinical Impression: Left knee pain, Foot pain, left, History of lupus Instructions: Knee Pain Prescriptions: New oxycodone-acetaminophen 5-325 mg tablet 1 tab PO Q6H PRN PRN (Reason: Pain) 3 Days Qty: 12 0RF No Action topiramate 100 MG tablet 200 mg PO BID Patient Comments: Migraines buspirone 10 MG tablet 10 mg PO TID trazodone 150 mg tablet 150 mg PO QHS cephalexin 500 mg capsule 500 mg PO TID 7 Days Qty: 21 0RF prednisone 10 mg tablet 10 mg PO DAILY Qty: 63 0RF Rx Instructions: 60 mg p.o. daily ?3 days, 50 mg p.o. daily ?3 days, 40 mg p.o. daily ?3 days, 30 mg p.o. daily ?3 days, 20 mg p.o. daily ?3 days, 10 mg p.o. daily ?3 days. oxycodone-acetaminophen 5-325 mg tablet 1 tab PO 4X/DAY Patient Comments: TAKE 1 TABLET BY MOUTH FOUR TIMES DAILY NEEDED FOR PAIN levothyroxine 88 mcg tablet 88 mcg PO DAILY Patient Comments: Take 1 tablet by mouth once daily. Take on empty stomach. For Thyroid duloxetine 60 mg capsule,delayed release(DR/EC) 60 mg PO BID Primary Care Provider: Sena Garibay Referrals: Uriel Whittaker DPM [Med Staff - Active Staff] - 1 Week Ron Carson MD [Med Staff - Active Staff] - 3-5 Days Sena Garibay, [employer] [Primary Care Provider] - Activity Restrictions/Additional Instructions: Left knee pain and swelling. X-ray severe osteoarthritic changes suprapatellar effusion. Attempted arthrocentesis in the ED there was no fluid obtainable. Usual walker at home mani wraps for support. Pain medicine as prescribed. Follow-up with Dr. Garcia. Left foot pain with calluses bilaterally. Left foot x-ray negative. Follow with Dr. Whittaker. Print Language: Setswana Disposition Disposition: Home, Self Care Discharge Date/Time: 04/19/25 20:09
[2025-04-19 20:08] VITALS: BP 140/78; PULSE 80; RESP 18; TEMP 36.4; O2SAT 99
== END 2025-04-19 20:09 | disposition home or self-care (01) ==
PROVIDERS: Emergency Provider Emergency Medicine; PCP Nurse Practitioner Family; Visit Provider Emergency Medicine
DX: M79.672 Pain in left foot (principal); Z90.710 Acquired absence of both cervix and uterus; M25.562 Pain in left knee; Z87.898 Personal history of other specified conditions; Z90.49 Acquired absence of other specified parts of digestive tract; Z90.6 Acquired absence of other parts of urinary tract
CPT/HCPCS: 20610; 73564; 73630; 80048; 85025; 85652; 86140; 96374; 96375; 99283; A4216; J2405